=== PATIENT | female | born 1980 | race American Indian/Alaskan Native ===

== ENCOUNTER 2018-11-27 23:23 | Inpatient (IN) | payer MEDICARE ==
[2018-11-27] MEDS ORDERED: NACL 0.9% 1000 ML 1,000 ML IV ONE ×2 (23:53→23:54)
--- NOTE | 2018-11-27 23:57 | Emergency Department Report ---
ED General Adult HPI - General Chief complaint: Hyperglycemia Stated complaint: HIGH BLOOD GLUCOSE/BLACK FEET/HANDS Time Seen by Provider: 11/27/18 23:35 Source: patient (patient delirious and is a poor historian), family (history obtained from fiance), EMS (ems notes not available at time of chart dictation), RN notes reviewed, old records reviewed Mode of arrival: Stretcher Limitations: Physical Limitation - History of Present Illness Initial comments: This is a 38-year-old female. This patient is not known to this provider previously. 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 We do not know what medications she takes currently. She is accompanied by a gentleman who states that he is the patient's fiance, however, he is a very poor historian. The patient is brought to the hospital by EMS for weakness, hyperglycemia, and skin discoloration. The patient is lethargic but arousable, and cannot tell me how long symptoms have been going on for. She is not able to tell me if she has any pain. Apparently, the patient's fianc has some concern about bilateral plantar skin discoloration. He states that this started today. He is not able to tell me the patient's exact last known well time. He does not know the patient's medications. He does not the patient's primary care doctor. He also states the patient has been throwing up continuously for the past 2-3 days. No additional history is available at this time. The fianc does not know if the patient started any new or different medicines. The patient follows some commands, but is not able to elaborate on the details of her history of present illness. -: days(s) Radiation: other Quality: other Improves with: other Worsens with: other Associated Symptoms: other - Related Data Home Medications Medication Instructions Recorded Confirmed Last Taken Aspirin [Aspirin BABY CHEW TAB] 81 mg PO QDAY 11/28/18 11/29/18 11/26/18 Fluticasone [Flonase] 1 spray NS BID 11/28/18 11/28/18 Unknown Furosemide [Lasix TAB] 40 mg PO BID 11/28/18 11/28/18 Unknown Ibuprofen [Motrin] 600 mg PO Q6H PRN 11/28/18 11/28/18 Unknown Montelukast [Singulair] 10 mg PO QPM 11/28/18 11/28/18 Unknown Mycophenolate [Cellcept] 500 mg PO BID 11/28/18 11/28/18 Unknown Mycophenolate [Cellcept] 500 mg PO BID PRN MDD 2 TABS 11/28/18 11/28/18 Unknown Pantoprazole [Protonix] 40 mg PO QDAY 11/28/18 11/28/18 Unknown Sacubitril/Valsartan [Entresto 1 each PO BID 11/28/18 11/28/18 Unknown 49-51 mg] predniSONE [Deltasone] 50 mg PO QDAY 11/28/18 11/28/18 Unknown raNITIdine HCl [Zantac] 150 mg PO BID 11/28/18 11/28/18 Unknown Amitriptyline [Elavil] 25 mg PO HS 11/29/18 11/29/18 11/26/18 Aspirin [Adult Aspirin] 81 mg PO ONCE 11/29/18 11/29/18 11/26/18 Entresto 49-51 mg 49 mg PO BID 11/29/18 11/29/18 11/26/18 HYDROcodone/APAP 5-325 5 mg PO Q6HR PRN 11/29/18 11/29/18 Unknown Allergies Allergy/AdvReac Type Severity Reaction Status Date / Time lisinopril AdvReac Severe SORE Verified 12/17/13 19:00 THROAT;PERSISTENT COUGH ED Review of Systems ROS: Stated complaint: HIGH BLOOD GLUCOSE/BLACK FEET/HANDS Other details as noted in HPI Comment: Unobtainable due to pts medical conditions Constitutional: malaise, weakness Gastrointestinal: nausea, vomiting Skin: lesions Neurological: weakness, confusion ED Past Medical Hx - Past Medical History Previous Medical History?: Yes Hx Hypertension: Yes Hx Congestive Heart Failure: No Hx Diabetes: No Hx GERD: Yes Hx Arthritis: Yes Hx Asthma: No Hx COPD: No Hx HIV: No Additional medical history: cardiomyopathy - Surgical History Past Surgical History?: Yes Hx Pacemaker: Yes (05/2013) Hx Internal Defibrillator: Yes Hx Cholecystectomy: Yes - Social History Smoking Status: Never Smoker Substance Use Type: None - Medications Home Medications: Home Medications Medication Instructions Recorded Confirmed Last Taken Type Aspirin [Aspirin BABY CHEW TAB] 81 mg PO QDAY 11/28/18 11/29/18 11/26/18 History Fluticasone [Flonase] 1 spray NS BID 11/28/18 11/28/18 Unknown History Furosemide [Lasix TAB] 40 mg PO BID 11/28/18 11/28/18 Unknown History Ibuprofen [Motrin] 600 mg PO Q6H PRN 11/28/18 11/28/18 Unknown History Montelukast [Singulair] 10 mg PO QPM 11/28/18 11/28/18 Unknown History Mycophenolate [Cellcept] 500 mg PO BID 11/28/18 11/28/18 Unknown History Mycophenolate [Cellcept] 500 mg PO BID PRN MDD 2 TABS 11/28/18 11/28/18 Unknown History Pantoprazole [Protonix] 40 mg PO QDAY 11/28/18 11/28/18 Unknown History Sacubitril/Valsartan [Entresto 1 each PO BID 11/28/18 11/28/18 Unknown History 49-51 mg] predniSONE [Deltasone] 50 mg PO QDAY 11/28/18 11/28/18 Unknown History raNITIdine HCl [Zantac] 150 mg PO BID 11/28/18 11/28/18 Unknown History Amitriptyline [Elavil] 25 mg PO HS 11/29/18 11/29/18 11/26/18 History Aspirin [Adult Aspirin] 81 mg PO ONCE 11/29/18 11/29/18 11/26/18 History Entresto 49-51 mg 49 mg PO BID 11/29/18 11/29/18 11/26/18 History HYDROcodone/APAP 5-325 5 mg PO Q6HR PRN 11/29/18 11/29/18 Unknown History ED Physical Exam - General Limitations: Altered Mental Status General appearance: lethargic - Head Head exam: Present: atraumatic, normocephalic - Eye Eye exam: Present: normal appearance, PERRL, EOMI - ENT ENT exam: Present: mucous membranes dry, normal external ear exam - Neck Neck exam: Present: normal inspection, full ROM. Absent: tenderness, meningismus - Respiratory Respiratory exam: Present: respiratory distress, other (patient was found to have tachpnea, suggestive of kussmaul respirations). Absent: wheezes, rales, rhonchi, prolonged expiratory - Cardiovascular Cardiovascular Exam: Present: normal rhythm, tachycardia, normal heart sounds. Absent: systolic murmur, diastolic murmur, rubs, gallop - GI/Abdominal GI/Abdominal exam: Present: soft. Absent: distended, tenderness, guarding, rebound, rigid, pulsatile mass - Rectal Rectal exam: Present: normal inspection (chaperoned by santosh Brown) - External exam: Present: normal external exam Speculum exam: Present: other (no tampon or foreign body noted; chaperoned by SANTOSH Brown). Absent: erythema, vaginal discharge, cervical discharge, vaginal bleeding - Extremities Exam Extremities exam: Present: normal inspection, other (2+ pulses noted in the bilateral upper, lower extremities ( b/l femoral). Compartments soft. No long bony tenderness. The pelvis is stable.). Absent: tenderness, calf tenderness - Back Exam Back exam: Present: normal inspection. Absent: tenderness, CVA tenderness (R), CVA tenderness (L), paraspinal tenderness, vertebral tenderness - Neurological Exam Neurological exam: Present: altered, other (there is no facial droop. Patient moves 4 extremities in response to command. Sensation is intact to light touch. Patient able to answer yes no questions as to whether or not she has pain.) - Psychiatric Psychiatric exam: Present: flat affect - Skin Skin exam: Present: warm, other (there is no redness, pus or streaking. There are no blisters or vesicles. Patient appears to have callus formation on the bilateral plantar aspect of the feet. There is no necrosis. There is no crepitus. There is no streaking.) ED Course Vital Signs 11/27/18 11/28/18 11/28/18 23:40 00:00 02:00 Temperature 98.0 F 99.1 F Pulse Rate 104 H 98 H Respiratory 26 H 21 Rate Blood Pressure 149/93 Blood Pressure 149/93 135/110 [Left] O2 Sat by Pulse 93 94 Oximetry 11/28/18 11/28/18 11/28/18 03:00 04:00 05:00 Temperature Pulse Rate 141 H 109 H 143 H Respiratory 36 H 28 H 24 Rate Blood Pressure Blood Pressure 114/82 117/72 99/74 [Left] O2 Sat by Pulse 97 96 100 Oximetry 11/28/18 11/28/18 11/28/18 07:00 07:31 08:01 Temperature Pulse Rate 143 H 116 H 144 H Respiratory 24 35 H 36 H Rate Blood Pressure 128/84 120/98 95/58 Blood Pressure [Left] O2 Sat by Pulse 93 Oximetry 11/28/18 11/28/18 11/28/18 08:15 08:31 09:00 Temperature Pulse Rate 132 H 148 H 97 H Respiratory 26 H 25 H 22 Rate Blood Pressure 109/85 78/47 113/88 Blood Pressure [Left] O2 Sat by Pulse 75 L 76 L Oximetry 11/28/18 11/28/18 11/28/18 09:31 10:30 11:00 Temperature Pulse Rate 117 H 102 H 118 H Respiratory 31 H 30 H 29 H Rate Blood Pressure 103/63 116/89 99/79 Blood Pressure [Left] O2 Sat by Pulse 80 L Oximetry 11/28/18 11/28/18 11/28/18 11:30 12:00 12:30 Temperature Pulse Rate 146 H 97 H 157 H Respiratory 25 H 29 H 40 H Rate Blood Pressure 118/97 107/80 114/79 Blood Pressure [Left] O2 Sat by Pulse Oximetry 11/28/18 11/28/18 11/28/18 13:01 13:15 13:31 Temperature Pulse Rate 174 H 120 H 170 H Respiratory 22 29 H 45 H Rate Blood Pressure 108/86 111/83 Blood Pressure 111/83 [Left] O2 Sat by Pulse 94 Oximetry 11/28/18 11/28/18 11/28/18 13:40 13:45 14:00 Temperature Pulse Rate 158 H 126 H 179 H Respiratory 31 H 40 H 30 H Rate Blood Pressure Blood Pressure 100/84 113/84 106/75 [Left] O2 Sat by Pulse 92 94 Oximetry 11/28/18 11/28/18 11/28/18 14:01 14:30 14:31 Temperature Pulse Rate 179 H 119 H 156 H Respiratory 40 H 32 H 36 H Rate Blood Pressure 106/75 114/76 Blood Pressure 111/77 [Left] O2 Sat by Pulse 98 Oximetry 11/28/18 11/28/18 11/28/18 14:45 15:00 15:01 Temperature Pulse Rate 153 H 140 H 140 H Respiratory 23 27 H 27 H Rate Blood Pressure 112/90 Blood Pressure 124/73 112/90 [Left] O2 Sat by Pulse 95 Oximetry 11/28/18 11/28/18 11/28/18 15:31 16:00 16:15 Temperature Pulse Rate 149 H 158 H 139 H Respiratory 39 H 30 H Rate Blood Pressure 128/82 127/97 Blood Pressure 124/84 [Left] O2 Sat by Pulse Oximetry 11/28/18 11/28/18 11/28/18 16:31 16:45 17:01 Temperature Pulse Rate 142 H 151 H 140 H Respiratory 30 H 24 35 H Rate Blood Pressure 127/97 74/58 Blood Pressure 179/129 [Left] O2 Sat by Pulse Oximetry 11/28/18 11/28/18 11/28/18 17:15 17:30 17:31 Temperature Pulse Rate 148 H 156 H 133 H Respiratory 34 H 34 H Rate Blood Pressure 118/87 Blood Pressure 144/104 118/87 [Left] O2 Sat by Pulse Oximetry 11/28/18 11/28/18 11/29/18 18:48 22:01 00:43 Temperature Pulse Rate 128 H 137 H Respiratory 34 H 49 H Rate Blood Pressure Blood Pressure 168/99 [Left] O2 Sat by Pulse 100 100 Oximetry 11/29/18 11/29/18 11/29/18 02:29 02:30 02:36 Temperature Pulse Rate 93 H 99 H 120 H Respiratory 33 H 24 22 Rate Blood Pressure 128/84 128/84 139/106 Blood Pressure [Left] O2 Sat by Pulse 97 Oximetry 11/29/18 11/29/18 11/29/18 02:40 02:45 02:51 Temperature Pulse Rate 120 H 105 H 99 H Respiratory 42 H 25 H 57 H Rate Blood Pressure 139/106 Blood Pressure [Left] O2 Sat by Pulse 86 Oximetry 11/29/18 11/29/18 11/29/18 02:55 03:01 03:05 Temperature Pulse Rate 91 H 110 H 110 H Respiratory 31 H 53 H 20 Rate Blood Pressure 144/89 144/89 Blood Pressure [Left] O2 Sat by Pulse 85 Oximetry 11/29/18 11/29/18 11/29/18 03:11 03:15 03:21 Temperature Pulse Rate 112 H 106 H 124 H Respiratory 24 22 30 H Rate Blood Pressure 139/106 139/106 96/70 Blood Pressure [Left] O2 Sat by Pulse 96 98 Oximetry 11/29/18 11/29/18 11/29/18 03:25 03:31 03:35 Temperature Pulse Rate 108 H 92 H 118 H Respiratory 20 35 H 23 Rate Blood Pressure 96/70 96/70 110/62 Blood Pressure [Left] O2 Sat by Pulse 97 Oximetry 11/29/18 11/29/18 11/29/18 03:41 03:45 03:51 Temperature Pulse Rate 96 H 116 H 98 H Respiratory 21 26 H 26 H Rate Blood Pressure 110/62 110/62 126/89 Blood Pressure [Left] O2 Sat by Pulse 97 Oximetry 11/29/18 11/29/18 11/29/18 03:55 04:01 04:05 Temperature Pulse Rate 89 111 H 97 H Respiratory 40 H 19 61 H Rate Blood Pressure 126/89 113/86 113/86 Blood Pressure [Left] O2 Sat by Pulse 99 99 Oximetry 11/29/18 11/29/18 11/29/18 04:11 04:21 04:30 Temperature Pulse Rate 91 H 103 H 117 H Respiratory 15 35 H 49 H Rate Blood Pressure 113/86 112/68 106/76 Blood Pressure [Left] O2 Sat by Pulse Oximetry 11/29/18 11/29/18 11/29/18 04:41 04:51 05:01 Temperature Pulse Rate 93 H 91 H 95 H Respiratory 26 H 49 H 26 H Rate Blood Pressure 106/76 69/27 139/96 Blood Pressure [Left] O2 Sat by Pulse 99 99 Oximetry 11/29/18 11/29/18 11/29/18 05:11 05:21 05:30 Temperature Pulse Rate 91 H 90 87 Respiratory 43 H 44 H 12 Rate Blood Pressure 139/96 133/61 126/66 Blood Pressure [Left] O2 Sat by Pulse 100 100 95 Oximetry 11/29/18 11/29/18 11/29/18 05:41 05:51 06:01 Temperature Pulse Rate 90 90 94 H Respiratory 14 32 H 28 H Rate Blood Pressure 126/66 126/66 126/66 Blood Pressure [Left] O2 Sat by Pulse 98 100 Oximetry 11/29/18 11/29/18 11/29/18 06:11 06:21 06:31 Temperature Pulse Rate 92 H 90 87 Respiratory 17 49 H 61 H Rate Blood Pressure 126/66 126/66 126/66 Blood Pressure [Left] O2 Sat by Pulse 100 98 Oximetry 11/29/18 11/29/18 11/29/18 06:41 06:51 07:01 Temperature Pulse Rate 98 H 91 H 89 Respiratory 26 H 19 29 H Rate Blood Pressure 126/66 126/66 124/73 Blood Pressure [Left] O2 Sat by Pulse 100 Oximetry 11/29/18 11/29/18 11/29/18 07:11 07:21 07:31 Temperature Pulse Rate 87 85 88 Respiratory 54 H 24 32 H Rate Blood Pressure 124/73 145/55 151/51 Blood Pressure [Left] O2 Sat by Pulse 98 100 100 Oximetry 11/29/18 11/29/18 11/29/18 07:41 07:51 08:14 Temperature 97.6 F Pulse Rate 87 87 Respiratory 34 H 39 H Rate Blood Pressure 151/51 104/65 Blood Pressure 151/51 [Left] O2 Sat by Pulse 100 100 100 Oximetry - Reevaluation(s) Reevaluation #1: 11/28/18 00:28 Differential diagnosis, including not limited to: Hyperglycemia, diabetic ketoacidosis, hyperosmolar,, dehydration, pneumonia, intracranial injury, intra- abdominal infection, urinary tract infection, toxic encephalopathy Assessment and plan: 38-year-old female with lethargy hyperglycemia, tachycardia, likely metabolic encephalopathy, likely secondary to diabetic ketoacidosis, or hyperosmolar state. She is tachycardic and tachypneic. Rectal temperature is pending at this time. Basic laboratory studies, CT scan of the brain, CT scan of the abdomen and pelvis, IV fluids have been ordered. Her skin exam is not consistent with acute infection, compartment syndrome, or necrosis. Her plantar feet appear to be consistent with callus formation. We will reassess once her initial data points have resulted. Plan to admit. Requested nursing team to reconcile patient's medications. Reevaluation #2: 11/28/18 02:36 Laboratory studies demonstrate leukocytosis and hemoconcentration, hyperglycemia with glucose greater than 1000, renal insufficiency, potassium of 5.9, and nonspecific troponin leak. Appreciate the patient meets systemic inflammatory response syndrome criteria, but at this point in time, favor metabolic crisis, such as hyperglycemic coma. IV fluids ordered, insulin drip ordered. Do not suspect bacteremia at this time. Lactic acidosis likely secondary to dehydration, and metabolic crisis. In addition, patient's abnormal vital signs and leukocytosis are likely secondary to the same. Nevertheless, we will cover with ceftriaxone. IV fluids and IV insulin should decrease hyperkalemia. Elevated troponin nonspecific, this is likely a type II troponin leak, secondary to the aforementioned. Noncontrast CT scan of the brain is negative for acute disease. Case presented to the Hospital physician, Dr. Constantin Diaz, who accepts the patient to the intensive care unit. Reevaluation #3: 11/28/18 03:11 X-ray of the chest shows atelectatic changes. Noncontrast CT scan of the abdomen and pelvis shows no acute findings, atelectatic changes. [facility] is updated. - EJ/Peripheral Line Neck R Time Out Performed: Yes Indications: nurses unable to establis Skin Cleansed in Sterile Fashion: Yes Size: 22 Dressing Placed: Tegaderm Patient Tolerated Procedure: well ED Medical Decision Making - Lab Data Result diagrams: 11/29/18 05:55 11/29/18 16:46 Vital Signs 11/27/18 23:40 Pulse Rate 104 H Respiratory 26 H Rate Blood Pressure 149/93 Blood Pressure 149/93 [Left] O2 Sat by Pulse 93 Oximetry Lab Results 11/27/18 Range/Units 23:40 POC Glucose > 500 H (70-105) Vital Signs 11/27/18 23:40 Pulse Rate 104 H Respiratory 26 H Rate Blood Pressure 149/93 Blood Pressure 149/93 [Left] O2 Sat by Pulse 93 Oximetry Lab Results 11/27/18 11/28/18 11/28/18 Range/Units 23:40 00:37 00:37 WBC (4.5-11.0) K/mm3 RBC (3.65-5.03) M/mm3 Hgb (10.1-14.3) gm/dl Hct (30.3-42.9) % MCV (79-97) fl MCH (28-32) pg MCHC (30-34) % RDW (13.2-15.2) % Plt Count (140-440) K/mm3 Lymph % (Auto) (13.4-35.0) % [place] % (Auto) (0.0-7.3) % Eos % (Auto) (0.0-4.3) % Baso % (Auto) (0.0-1.8) % Lymph # (1.2-5.4) K/mm3 [place] # (0.0-0.8) K/mm3 Eos # (0.0-0.4) K/mm3 Baso # (0.0-0.1) K/mm3 Seg Neutrophils % (40.0-70.0) % Seg Neutrophils # (1.8-7.7) K/mm3 PT (12.2-14.9) Sec. INR (0.87-1.13) APTT (24.2-36.6) Sec. ABG pH (7.350-7.450) pH Units ABG pCO2 mm Hg ABG pO2 (80.0-90.0) mm Hg ABG HCO3 (20.0-26.0) mmol/L ABG O2 Saturation (95.0-99.0) % ABG O2 Content (0.0-44) ABG Base Excess (-2.0-3.0) mmol/L ABG Hemoglobin (12.0-16.0) gm/dl ABG Carboxyhemoglobin (0.0-5.0) % ABG Methemoglobin (0.0-1.5) % VBG pH (7.320-7.420) Oxyhemoglobin (95.0-99.0) % FiO2 % Sodium (137-145) mmol/L Potassium (3.6-5.0) mmol/L Chloride (98-107) mmol/L Carbon Dioxide (22-30) mmol/L Anion Gap mmol/L BUN (7-17) mg/dL Creatinine (0.7-1.2) mg/dL Estimated GFR ml/min BUN/Creatinine Ratio % Glucose (65-100) mg/dL POC Glucose > 500 H (70-105) Lactic Acid (0.7-2.0) mmol/L Calcium (8.4-10.2) mg/dL Magnesium (1.7-2.3) mg/dL Total Bilirubin (0.1-1.2) mg/dL Direct Bilirubin (0-0.2) mg/dL Indirect Bilirubin mg/dL AST (5-40) units/L ALT (7-56) units/L Alkaline Phosphatase (35-129) units/L Ammonia (25-60) umol/L Total Creatine Kinase (30-135) units/L Troponin T (0.00-0.029) ng/mL Total Protein (6.3-8.2) g/dL Albumin (3.9-5) g/dL Albumin/Globulin Ratio % Triglycerides (2-149) mg/dL Cholesterol (50-199) mg/dL LDL Cholesterol Direct (50-130) mg/dL HDL Cholesterol (40-59) mg/dL Cholesterol/HDL Ratio % HCG, Quant (0-4) mIU/mL Urine Color Straw (Yellow) Urine Turbidity Clear (Clear) Urine pH 7.0 (5.0-7.0) Ur Specific [place] 1.023 (1.003-1.030) Urine Protein 30 mg/dl (Negative) mg/dL Urine Glucose (UA) >=500 (Negative) mg/dL Urine Ketones Tr (Negative) mg/dL Urine Blood Sm (Negative) Urine Nitrite Neg (Negative) Urine Bilirubin Neg (Negative) Urine Urobilinogen < 2.0 (<2.0) mg/dL Ur Leukocyte Esterase Neg (Negative) Urine WBC (Auto) < 1.0 (0.0-6.0) /HPF Urine RBC (Auto) 1.0 (0.0-6.0) /HPF Urine HCG, Qual (Negative) Salicylates (2.8-20.0) mg/dL Urine Opiates Screen Presumptive negative Urine Methadone Screen Presumptive negative Acetaminophen (10.0-30.0) ug/mL Ur Barbiturates Screen Presumptive negative Ur Phencyclidine Scrn Presumptive negative Ur Amphetamines Screen Presumptive negative U Benzodiazepines Scrn Presumptive negative Urine Cocaine Screen Presumptive negative U Marijuana (THC) Screen Presumptive negative Drugs of Abuse Note Disclamer Plasma/Serum Alcohol (0-0.07) % Blood Type 11/28/18 11/28/18 11/28/18 Range/Units 01:01 01:01 01:01 WBC 15.1 H (4.5-11.0) K/mm3 RBC 6.19 H (3.65-5.03) M/mm3 Hgb 17.4 H (10.1-14.3) gm/dl Hct 54.6 H (30.3-42.9) % MCV 88 (79-97) fl MCH 28 (28-32) pg MCHC 32 (30-34) % RDW 19.6 H (13.2-15.2) % Plt Count 308 (140-440) K/mm3 Lymph % (Auto) 6.3 L (13.4-35.0) % [place] % (Auto) 6.1 (0.0-7.3) % Eos % (Auto) 0.0 (0.0-4.3) % Baso % (Auto) 0.4 (0.0-1.8) % Lymph # 0.9 L (1.2-5.4) K/mm3 [place] # 0.9 H (0.0-0.8) K/mm3 Eos # 0.0 (0.0-0.4) K/mm3 Baso # 0.1 (0.0-0.1) K/mm3 Seg Neutrophils % 87.2 H (40.0-70.0) % Seg Neutrophils # 13.2 H (1.8-7.7) K/mm3 PT 15.6 H (12.2-14.9) Sec. INR 1.27 H (0.87-1.13) APTT 25.1 (24.2-36.6) Sec. ABG pH (7.350-7.450) pH Units ABG pCO2 mm Hg ABG pO2 (80.0-90.0) mm Hg ABG HCO3 (20.0-26.0) mmol/L ABG O2 Saturation (95.0-99.0) % ABG O2 Content (0.0-44) ABG Base Excess (-2.0-3.0) mmol/L ABG Hemoglobin (12.0-16.0) gm/dl ABG Carboxyhemoglobin (0.0-5.0) % ABG Methemoglobin (0.0-1.5) % VBG pH (7.320-7.420) Oxyhemoglobin (95.0-99.0) % FiO2 % Sodium 141 (137-145) mmol/L Potassium 5.9 H (3.6-5.0) mmol/L Chloride 92.9 L (98-107) mmol/L Carbon Dioxide 29 (22-30) mmol/L Anion Gap 25 mmol/L BUN 20 H (7-17) mg/dL Creatinine 1.3 H (0.7-1.2) mg/dL Estimated GFR 55 ml/min BUN/Creatinine Ratio 15 % Glucose 1088 H* (65-100) mg/dL POC Glucose (70-105) Lactic Acid (0.7-2.0) mmol/L Calcium 9.8 (8.4-10.2) mg/dL Magnesium (1.7-2.3) mg/dL Total Bilirubin 2.40 H (0.1-1.2) mg/dL Direct Bilirubin 1.3 H (0-0.2) mg/dL Indirect Bilirubin 1.1 mg/dL AST 13 (5-40) units/L ALT 31 (7-56) units/L Alkaline Phosphatase 225 H (35-129) units/L Ammonia (25-60) umol/L Total Creatine Kinase (30-135) units/L Troponin T 0.030 H (0.00-0.029) ng/mL Total Protein 7.7 (6.3-8.2) g/dL Albumin 3.8 L (3.9-5) g/dL Albumin/Globulin Ratio 1.0 % Triglycerides 356 H (2-149) mg/dL Cholesterol 200 H (50-199) mg/dL LDL Cholesterol Direct 125 (50-130) mg/dL HDL Cholesterol 39 L (40-59) mg/dL Cholesterol/HDL Ratio 5.12 % HCG, Quant (0-4) mIU/mL Urine Color (Yellow) Urine Turbidity (Clear) Urine pH (5.0-7.0) Ur Specific [place] (1.003-1.030) Urine Protein (Negative) mg/dL Urine Glucose (UA) (Negative) mg/dL Urine Ketones (Negative) mg/dL Urine Blood (Negative) Urine Nitrite (Negative) Urine Bilirubin (Negative) Urine Urobilinogen (<2.0) mg/dL Ur Leukocyte Esterase (Negative) Urine WBC (Auto) (0.0-6.0) /HPF Urine RBC (Auto) (0.0-6.0) /HPF Urine HCG, Qual (Negative) Salicylates (2.8-20.0) mg/dL Urine Opiates Screen Urine Methadone Screen Acetaminophen (10.0-30.0) ug/mL Ur Barbiturates Screen Ur Phencyclidine Scrn Ur Amphetamines Screen U Benzodiazepines Scrn Urine Cocaine Screen U Marijuana (THC) Screen Drugs of Abuse Note Plasma/Serum Alcohol (0-0.07) % Blood Type 11/28/18 11/28/18 11/28/18 Range/Units 01:01 01:01 01:01 WBC (4.5-11.0) K/mm3 RBC (3.65-5.03) M/mm3 Hgb (10.1-14.3) gm/dl Hct (30.3-42.9) % MCV (79-97) fl MCH (28-32) pg MCHC (30-34) % RDW (13.2-15.2) % Plt Count (140-440) K/mm3 Lymph % (Auto) (13.4-35.0) % [place] % (Auto) (0.0-7.3) % Eos % (Auto) (0.0-4.3) % Baso % (Auto) (0.0-1.8) % Lymph # (1.2-5.4) K/mm3 [place] # (0.0-0.8) K/mm3 Eos # (0.0-0.4) K/mm3 Baso # (0.0-0.1) K/mm3 Seg Neutrophils % (40.0-70.0) % Seg Neutrophils # (1.8-7.7) K/mm3 PT (12.2-14.9) Sec. INR (0.87-1.13) APTT (24.2-36.6) Sec. ABG pH (7.350-7.450) pH Units ABG pCO2 mm Hg ABG pO2 (80.0-90.0) mm Hg ABG HCO3 (20.0-26.0) mmol/L ABG O2 Saturation (95.0-99.0) % ABG O2 Content (0.0-44) ABG Base Excess (-2.0-3.0) mmol/L ABG Hemoglobin (12.0-16.0) gm/dl ABG Carboxyhemoglobin (0.0-5.0) % ABG Methemoglobin (0.0-1.5) % VBG pH (7.320-7.420) Oxyhemoglobin (95.0-99.0) % FiO2 % Sodium (137-145) mmol/L Potassium (3.6-5.0) mmol/L Chloride (98-107) mmol/L Carbon Dioxide (22-30) mmol/L Anion Gap mmol/L BUN (7-17) mg/dL Creatinine (0.7-1.2) mg/dL Estimated GFR ml/min BUN/Creatinine Ratio % Glucose (65-100) mg/dL POC Glucose (70-105) Lactic Acid 3.50 H* (0.7-2.0) mmol/L Calcium (8.4-10.2) mg/dL Magnesium (1.7-2.3) mg/dL Total Bilirubin (0.1-1.2) mg/dL Direct Bilirubin (0-0.2) mg/dL Indirect Bilirubin mg/dL AST (5-40) units/L ALT (7-56) units/L Alkaline Phosphatase (35-129) units/L Ammonia 30.0 (25-60) umol/L Total Creatine Kinase (30-135) units/L Troponin T (0.00-0.029) ng/mL Total Protein (6.3-8.2) g/dL Albumin (3.9-5) g/dL Albumin/Globulin Ratio % Triglycerides (2-149) mg/dL Cholesterol (50-199) mg/dL LDL Cholesterol Direct (50-130) mg/dL HDL Cholesterol (40-59) mg/dL Cholesterol/HDL Ratio % HCG, Quant (0-4) mIU/mL Urine Color (Yellow) Urine Turbidity (Clear) Urine pH (5.0-7.0) Ur Specific [place] (1.003-1.030) Urine Protein (Negative) mg/dL Urine Glucose (UA) (Negative) mg/dL Urine Ketones (Negative) mg/dL Urine Blood (Negative) Urine Nitrite (Negative) Urine Bilirubin (Negative) Urine Urobilinogen (<2.0) mg/dL Ur Leukocyte Esterase (Negative) Urine WBC (Auto) (0.0-6.0) /HPF Urine RBC (Auto) (0.0-6.0) /HPF Urine HCG, Qual (Negative) Salicylates < 0.3 L (2.8-20.0) mg/dL Urine Opiates Screen Urine Methadone Screen Acetaminophen (10.0-30.0) ug/mL Ur Barbiturates Screen Ur Phencyclidine Scrn Ur Amphetamines Screen U Benzodiazepines Scrn Urine Cocaine Screen U Marijuana (THC) Screen Drugs of Abuse Note Plasma/Serum Alcohol (0-0.07) % Blood Type 08/18/19 08/18/19 08/18/19 Range/Units 01:01 01:01 01:01 WBC (4.5-11.0) K/mm3 RBC (3.65-5.03) M/mm3 Hgb (10.1-14.3) gm/dl Hct (30.3-42.9) % MCV (79-97) fl MCH (28-32) pg MCHC (30-34) % RDW (13.2-15.2) % Plt Count (140-440) K/mm3 Lymph % (Auto) (13.4-35.0) % [place] % (Auto) (0.0-7.3) % Eos % (Auto) (0.0-4.3) % Baso % (Auto) (0.0-1.8) % Lymph # (1.2-5.4) K/mm3 [place] # (0.0-0.8) K/mm3 Eos # (0.0-0.4) K/mm3 Baso # (0.0-0.1) K/mm3 Seg Neutrophils % (40.0-70.0) % Seg Neutrophils # (1.8-7.7) K/mm3 PT (12.2-14.9) Sec. INR (0.87-1.13) APTT (24.2-36.6) Sec. ABG pH 7.414 (7.350-7.450) pH Units ABG pCO2 48.8 mm Hg ABG pO2 65.7 L (80.0-90.0) mm Hg ABG HCO3 30.5 H (20.0-26.0) mmol/L ABG O2 Saturation 91.3 L (95.0-99.0) % ABG O2 Content 22.2 (0.0-44) ABG Base Excess 4.6 H (-2.0-3.0) mmol/L ABG Hemoglobin 18.0 H (12.0-16.0) gm/dl ABG Carboxyhemoglobin 3.1 (0.0-5.0) % ABG Methemoglobin 0.5 (0.0-1.5) % VBG pH 7.414 (7.320-7.420) Oxyhemoglobin 88.0 L (95.0-99.0) % FiO2 21 % Sodium (137-145) mmol/L Potassium (3.6-5.0) mmol/L Chloride (98-107) mmol/L Carbon Dioxide (22-30) mmol/L Anion Gap mmol/L BUN (7-17) mg/dL Creatinine (0.7-1.2) mg/dL Estimated GFR ml/min BUN/Creatinine Ratio % Glucose (65-100) mg/dL POC Glucose (70-105) Lactic Acid (0.7-2.0) mmol/L Calcium (8.4-10.2) mg/dL Magnesium (1.7-2.3) mg/dL Total Bilirubin (0.1-1.2) mg/dL Direct Bilirubin (0-0.2) mg/dL Indirect Bilirubin mg/dL AST (5-40) units/L ALT (7-56) units/L Alkaline Phosphatase (35-129) units/L Ammonia (25-60) umol/L Total Creatine Kinase (30-135) units/L Troponin T (0.00-0.029) ng/mL Total Protein (6.3-8.2) g/dL Albumin (3.9-5) g/dL Albumin/Globulin Ratio % Triglycerides (2-149) mg/dL Cholesterol (50-199) mg/dL LDL Cholesterol Direct (50-130) mg/dL HDL Cholesterol (40-59) mg/dL Cholesterol/HDL Ratio % HCG, Quant (0-4) mIU/mL Urine Color (Yellow) Urine Turbidity (Clear) Urine pH (5.0-7.0) Ur Specific [place] (1.003-1.030) Urine Protein (Negative) mg/dL Urine Glucose (UA) (Negative) mg/dL Urine Ketones (Negative) mg/dL Urine Blood (Negative) Urine Nitrite (Negative) Urine Bilirubin (Negative) Urine Urobilinogen (<2.0) mg/dL Ur Leukocyte Esterase (Negative) Urine WBC (Auto) (0.0-6.0) /HPF Urine RBC (Auto) (0.0-6.0) /HPF Urine HCG, Qual (Negative) Salicylates (2.8-20.0) mg/dL Urine Opiates Screen Urine Methadone Screen Acetaminophen < 5.0 L (10.0-30.0) ug/mL Ur Barbiturates Screen Ur Phencyclidine Scrn Ur Amphetamines Screen U Benzodiazepines Scrn Urine Cocaine Screen U Marijuana (THC) Screen Drugs of Abuse Note Plasma/Serum Alcohol < 0.01 (0-0.07) % Blood Type 11/28/18 11/28/18 11/28/18 Range/Units 01:01 01:01 01:01 WBC (4.5-11.0) K/mm3 RBC (3.65-5.03) M/mm3 Hgb (10.1-14.3) gm/dl Hct (30.3-42.9) % MCV (79-97) fl MCH (28-32) pg MCHC (30-34) % RDW (13.2-15.2) % Plt Count (140-440) K/mm3 Lymph % (Auto) (13.4-35.0) % [place] % (Auto) (0.0-7.3) % Eos % (Auto) (0.0-4.3) % Baso % (Auto) (0.0-1.8) % Lymph # (1.2-5.4) K/mm3 [place] # (0.0-0.8) K/mm3 Eos # (0.0-0.4) K/mm3 Baso # (0.0-0.1) K/mm3 Seg Neutrophils % (40.0-70.0) % Seg Neutrophils # (1.8-7.7) K/mm3 PT (12.2-14.9) Sec. INR (0.87-1.13) APTT (24.2-36.6) Sec. ABG pH (7.350-7.450) pH Units ABG pCO2 mm Hg ABG pO2 (80.0-90.0) mm Hg ABG HCO3 (20.0-26.0) mmol/L ABG O2 Saturation (95.0-99.0) % ABG O2 Content (0.0-44) ABG Base Excess (-2.0-3.0) mmol/L ABG Hemoglobin (12.0-16.0) gm/dl ABG Carboxyhemoglobin (0.0-5.0) % ABG Methemoglobin (0.0-1.5) % VBG pH (7.320-7.420) Oxyhemoglobin (95.0-99.0) % FiO2 % Sodium (137-145) mmol/L Potassium (3.6-5.0) mmol/L Chloride (98-107) mmol/L Carbon Dioxide (22-30) mmol/L Anion Gap mmol/L BUN (7-17) mg/dL Creatinine (0.7-1.2) mg/dL Estimated GFR ml/min BUN/Creatinine Ratio % Glucose (65-100) mg/dL POC Glucose (70-105) Lactic Acid (0.7-2.0) mmol/L Calcium (8.4-10.2) mg/dL Magnesium 3.70 H (1.7-2.3) mg/dL Total Bilirubin (0.1-1.2) mg/dL Direct Bilirubin (0-0.2) mg/dL Indirect Bilirubin mg/dL AST (5-40) units/L ALT (7-56) units/L Alkaline Phosphatase (35-129) units/L Ammonia (25-60) umol/L Total Creatine Kinase 228 H (30-135) units/L Troponin T (0.00-0.029) ng/mL Total Protein (6.3-8.2) g/dL Albumin (3.9-5) g/dL Albumin/Globulin Ratio % Triglycerides (2-149) mg/dL Cholesterol (50-199) mg/dL LDL Cholesterol Direct (50-130) mg/dL HDL Cholesterol (40-59) mg/dL Cholesterol/HDL Ratio % HCG, Quant < 2 (0-4) mIU/mL Urine Color (Yellow) Urine Turbidity (Clear) Urine pH (5.0-7.0) Ur Specific [place] (1.003-1.030) Urine Protein (Negative) mg/dL Urine Glucose (UA) (Negative) mg/dL Urine Ketones (Negative) mg/dL Urine Blood (Negative) Urine Nitrite (Negative) Urine Bilirubin (Negative) Urine Urobilinogen (<2.0) mg/dL Ur Leukocyte Esterase (Negative) Urine WBC (Auto) (0.0-6.0) /HPF Urine RBC (Auto) (0.0-6.0) /HPF Urine HCG, Qual (Negative) Salicylates (2.8-20.0) mg/dL Urine Opiates Screen Urine Methadone Screen Acetaminophen (10.0-30.0) ug/mL Ur Barbiturates Screen Ur Phencyclidine Scrn Ur Amphetamines Screen U Benzodiazepines Scrn Urine Cocaine Screen U Marijuana (THC) Screen Drugs of Abuse Note Plasma/Serum Alcohol (0-0.07) % Blood Type B POSITIVE 11/28/18 Range/Units Unknown WBC (4.5-11.0) K/mm3 RBC (3.65-5.03) M/mm3 Hgb (10.1-14.3) gm/dl Hct (30.3-42.9) % MCV (79-97) fl MCH (28-32) pg MCHC (30-34) % RDW (13.2-15.2) % Plt Count (140-440) K/mm3 Lymph % (Auto) (13.4-35.0) % [place] % (Auto) (0.0-7.3) % Eos % (Auto) (0.0-4.3) % Baso % (Auto) (0.0-1.8) % Lymph # (1.2-5.4) K/mm3 [place] # (0.0-0.8) K/mm3 Eos # (0.0-0.4) K/mm3 Baso # (0.0-0.1) K/mm3 Seg Neutrophils % (40.0-70.0) % Seg Neutrophils # (1.8-7.7) K/mm3 PT (12.2-14.9) Sec. INR (0.87-1.13) APTT (24.2-36.6) Sec. ABG pH (7.350-7.450) pH Units ABG pCO2 mm Hg ABG pO2 (80.0-90.0) mm Hg ABG HCO3 (20.0-26.0) mmol/L ABG O2 Saturation (95.0-99.0) % ABG O2 Content (0.0-44) ABG Base Excess (-2.0-3.0) mmol/L ABG Hemoglobin (12.0-16.0) gm/dl ABG Carboxyhemoglobin (0.0-5.0) % ABG Methemoglobin (0.0-1.5) % VBG pH (7.320-7.420) Oxyhemoglobin (95.0-99.0) % FiO2 % Sodium (137-145) mmol/L Potassium (3.6-5.0) mmol/L Chloride (98-107) mmol/L Carbon Dioxide (22-30) mmol/L Anion Gap mmol/L BUN (7-17) mg/dL Creatinine (0.7-1.2) mg/dL Estimated GFR ml/min BUN/Creatinine Ratio % Glucose (65-100) mg/dL POC Glucose (70-105) Lactic Acid (0.7-2.0) mmol/L Calcium (8.4-10.2) mg/dL Magnesium (1.7-2.3) mg/dL Total Bilirubin (0.1-1.2) mg/dL Direct Bilirubin (0-0.2) mg/dL Indirect Bilirubin mg/dL AST (5-40) units/L ALT (7-56) units/L Alkaline Phosphatase (35-129) units/L Ammonia (25-60) umol/L Total Creatine Kinase (30-135) units/L Troponin T (0.00-0.029) ng/mL Total Protein (6.3-8.2) g/dL Albumin (3.9-5) g/dL Albumin/Globulin Ratio % Triglycerides (2-149) mg/dL Cholesterol (50-199) mg/dL LDL Cholesterol Direct (50-130) mg/dL HDL Cholesterol (40-59) mg/dL Cholesterol/HDL Ratio % HCG, Quant (0-4) mIU/mL Urine Color (Yellow) Urine Turbidity (Clear) Urine pH (5.0-7.0) Ur Specific [place] (1.003-1.030) Urine Protein (Negative) mg/dL Urine Glucose (UA) (Negative) mg/dL Urine Ketones (Negative) mg/dL Urine Blood (Negative) Urine Nitrite (Negative) Urine Bilirubin (Negative) Urine Urobilinogen (<2.0) mg/dL Ur Leukocyte Esterase (Negative) Urine WBC (Auto) (0.0-6.0) /HPF Urine RBC (Auto) (0.0-6.0) /HPF Urine HCG, Qual Negative (Negative) Salicylates (2.8-20.0) mg/dL Urine Opiates Screen Urine Methadone Screen Acetaminophen (10.0-30.0) ug/mL Ur Barbiturates Screen Ur Phencyclidine Scrn Ur Amphetamines Screen U Benzodiazepines Scrn Urine Cocaine Screen U Marijuana (THC) Screen Drugs of Abuse Note Plasma/Serum Alcohol (0-0.07) % Blood Type - EKG Data 11/28/18 00:31 This is a sinus tachycardia, left axis deviation, left anterior fascicular block, atrial enlargement, premature ventricular contractions, no endorsement of chest pain, the EKG is abnormal, the EKG is not consistent with ST elevation myocardial infarction, nonspecific changes noted when compared to prior EKG from December 2013 - Radiology Data Radiology results: pending, report reviewed, image reviewed Critical Care Time: Yes Critical care time in (mins) excluding proc time.: 60 Critical care attestation.: If time is entered above; I have spent that time in minutes in the direct care of this critically ill patient, excluding procedure time. ED Disposition Clinical Impression: Hyperosmolar coma, Acute renal insufficiency Disposition: OP ADMIT IP TO THIS HOSP Is pt being admited?: Yes Condition: Critical
[2018-11-28 00:57] LABS: Bilirubin,Urine NEG (Negative); Blood,Urine SM (Negative); Color,Urine Straw (Yellow); Urobilinogen,Urine < 2.0 mg/dL (<2.0); WBC,Urine < 1.0 /HPF (0.0-6.0)
[2018-11-28 01:06] LABS: Amphetamine Screen,Urine PRESUMPTIVE NEGATIVE; Benzodiazepines Screen,Urine PRESUMPTIVE NEGATIVE; Cannabinoid Screen,Urine PRESUMPTIVE NEGATIVE; Cocaine Screen,Urine PRESUMPTIVE NEGATIVE; Methadone Screen,Urine PRESUMPTIVE NEGATIVE; Opiate Screen,Urine PRESUMPTIVE NEGATIVE
[2018-11-28 01:15] LABS: HCG Qualitative,Urine Negative (Negative)
[2018-11-28 01:19] LABS: Basophils # (Auto) 0.1 K/mm3 (0.0-0.1); Basophils % (Auto) 0.4 % (0.0-1.8); Hematocrit 54.6 % (30.3-42.9); Hemoglobin 17.4 gm/dl (10.1-14.3); Lymphocytes # (Auto) 0.9 K/mm3 (1.2-5.4); Lymphocytes % (Auto) 6.3 % (13.4-35.0); Mean Corpuscular HGB Conc 32 % (30-34); Mean Corpuscular Volume 88 fl (79-97); Monocytes # (Auto) 0.9 K/mm3 (0.0-0.8); Monocytes % (Auto) 6.1 % (0.0-7.3); Platelet Count 308 K/mm3 (140-440); Red Blood Count 6.19 M/mm3 (3.65-5.03); Red Cell Distribution Width 19.6 % (13.2-15.2)
[2018-11-28 01:20] LABS: ABG Base Excess 4.6 mmol/L (-2.0-3.0); ABG HCO3 30.5 mmol/L (20.0-26.0); ABG Methemoglobin 0.5 % (0.0-1.5); ABG Oxygen Saturation 91.3 % (95.0-99.0); ABG PCO2 48.8 mm Hg; ABG PH 7.414 pH Units (7.350-7.450); ABG PO2 65.7 mm Hg (80.0-90.0); VEN PH 7.414 (7.320-7.420)
[2018-11-28 01:47] LABS: INR 1.27 (0.87-1.13); Partial Thromboplastin Time 25.1 Sec. (24.2-36.6)
[2018-11-28 02:06] LABS: Albumin 3.8 g/dL (3.9-5); Bilirubin,Direct 1.3 mg/dL (0-0.2); Calcium 9.8 mg/dL (8.4-10.2)
[2018-11-28 02:17] LABS: Chol/HDL Ratio 5.12 %
[2018-11-28] MEDS ORDERED: D50W (25GM) Syringe IV PRN (02:19)
[2018-11-28] MEDS ORDERED: HumuLIN R IV ONE (02:19)
[2018-11-28] MEDS ORDERED: NACL 0.9% 1000 ML 2,000 ML IV ONE (02:19)
--- NOTE | 2018-11-28 02:32 | Cat Scan Report ---
CT head/brain wo con INDICATION / CLINICAL INFORMATION: Altered Mental Status. TECHNIQUE: All CT scans at this location are performed using CT dose reduction for ALARA by means of automated e xposure control. COMPARISON: None available. FINDINGS: The ventricular system is normal in size and configuration. No focal lesion or mass effect is seen. T here is no evidence of intracranial hemorrhage or major vessel occlusion. The calvarium is intact. The visualized paranasal sinuses and mastoid air cells are clear. IMPRESSION: No acute abnormality. Signer Name: Roldan Lim MD Signed: 11/28/2018 2:27 AM Workstation Name: [id number]
[2018-11-28] MEDS ORDERED: ROCEPHIN/NS 1 GM/50 ML 1 GM/50 ML BAG IV ONE (02:33)
--- NOTE | 2018-11-28 02:40 | Cat Scan Report ---
CT abdomen pelvis wo con INDICATION / CLINICAL INFORMATION: NAUSEA, VOMITING, WEAKNESS, AMS. TECHNIQUE: All CT scans at this location are performed using CT dose reduction for ALARA by means of automated e xposure control. COMPARISON: None available. FINDINGS: ABDOMEN: The gallbladder is surgically absent. The liver, spleen, bile ducts, pancreas, adrenal gland s, kidneys and bowel demonstrate no significant abnormality. No adenopathy is seen. There is cylindrical bronchiectasis throughout both lungs, most prominent in the lower lung zones. Th ere is mosaic lung attenuation likely related to small airway disease. There is no evidence of consol idation, mass or effusion. The heart is enlarged. PELVIS: The distal ureters and urinary bladder are normal. The uterus and adnexal regions are unremar kable. A normal appendix is present and there is no evidence of diverticulitis. No abnormal mass or f luid collection is seen. I do not identify a hernia. There is internal fixation of the right SI joint . There are degenerative changes involving the right SI joint. No acute osseous abnormality is seen. IMPRESSION: 1. No acute intra-abdominal disease is identified. 2. Cardiomegaly, generalized bronchiectasis and mosaic lung attenuation/evidence of small airway dise ase. Signer Name: Roldan Lim MD Signed: 11/28/2018 2:36 AM Workstation Name: [id number]
--- NOTE | 2018-11-28 02:45 | XRay Report ---
CHEST 1 VIEW 2:12 AM INDICATION / CLINICAL INFORMATION: RESP DISTRESS, LOW 02. COMPARISON: 12/17/2013. FINDINGS: SUPPORT DEVICES: There is a dual chamber left subclavian ICD with the tips of the pacing leads overly ing the right atrial appendage and right ventricle. HEART / MEDIASTINUM: There is [id number] cardiomegaly. LUNGS / PLEURA: There is mild bibasilar subsegmental atelectasis without evidence of edema. No pneumo thorax. ADDITIONAL FINDINGS: No significant additional findings. IMPRESSION: Mild bibasilar atelectasis. Signer Name: Roldan Lim MD Signed: 11/28/2018 2:40 AM Workstation Name: [id number]
[2018-11-28] MEDS ORDERED: HumuLIN R 100 UNITS in NACL 0.9% 99 ML IV SCH (03:00)
[2018-11-28] MEDS ORDERED: D5W/0.45% NACL/KCL 20 MEQ 20 MEQ/1,000 ML BAG IV SCH ×2 (03:00→15:00)
[2018-11-28] MEDS ORDERED: SODIUM CHLORIDE FLUSH SYRINGE 10 ML IV PRN ×2 (03:00→03:02)
[2018-11-28] MEDS ORDERED: ZOFRAN IV PRN (03:02)
--- NOTE | 2018-11-28 03:18 | History and Physical Report ---
History of Present Illness Date of examination: 11/28/18 Chief complaint: Generalized weakness History of present illness: Patient is a 38-year-old -[place] female with history of hypertension and non-ischemic cardiomyopathy who was brought to the ED via EMS on account of generalized weakness. Of note, history could not be obtained from the patient because she was confused. So, history was obtained from her fiance who was at the bedside. He reported that for the past 2 days, the patient has been having nausea with vomiting times multiple episodes, generalized weakness and poor oral intake. Today, he noticed some bluish discoloration of her feet which prompted him to call 911. No reported history of chest pain, shortness of breath, abdominal pain or diarrhea. No known prior history of diabetes. Past History Past Medical History: arthritis, GERD, hypertension, other (non-ischemic cardiomyopathy status post AICD placement) Past Surgical History: Other (cholecystectomy, AICD placement, back surgery) Social history: no significant social history (no reported history of tobacco, alcohol or illicit drug use) Family history: other (could not be obtained due to altered mental status) Medications and Allergies Allergies Allergy/AdvReac Type Severity Reaction Status Date / Time lisinopril AdvReac Severe SORE Verified 12/17/13 19:00 THROAT;PERSISTENT COUGH Home Medications Medication Instructions Recorded Confirmed Last Taken Type Aspirin 325 mg PO QDAY 02/08/13 12/17/13 12/15/13 History Famotidine 40 mg PO DAILY 06/14/13 12/17/13 12/17/13 11:00 History Multivitamin [Multi-Vitamin Daily] 1 tab PO DAILY 06/14/13 12/17/13 12/17/13 11:00 History Ferrous Sulfate [Feosol 325 MG tab] 325 mg PO QDAY #30 tablet 07/07/13 12/17/13 12/17/13 11:00 Rx Ferrous Sulfate [Feosol 325 MG tab] 325 mg PO BID #30 tablet 12/20/13 Unknown Rx Losartan [Cozaar] 25 mg PO QDAY #30 tablet 12/20/13 Unknown Rx Metoprolol Xl [Metoprolol 50 mg PO QDAY #30 tablet 12/20/13 Unknown Rx SUCCINATE ER TAB] levoFLOXacin [Levaquin TAB] 500 mg PO Q24HR #10 tablet 12/20/13 Unknown Rx Active Meds: Active Medications Acetaminophen (Tylenol) 650 mg PO Q4H PRN PRN Reason: Pain MILD(1-3)/Fever >100.5/TURPIN Dextrose (D50w (25gm) Syringe) 0 ml IV PRN PRN PRN Reason: Hypoglycemia Famotidine (Pepcid) 10 mg IV BID VIOLA Insulin Human Regular 100 (units/ Sodium Chloride) 100 mls @ 1 mls/hr IV TITR VIOLA; Protocol Sodium Chloride (Nacl 0.9% 1000 Ml) 1,000 mls @ 150 mls/hr IV DIRECT VIOLA Morphine Sulfate (Morphine) 2 mg IV Q4H PRN PRN Reason: Pain, Moderate (4-6) Ondansetron HCl (Zofran) 4 mg IV Q8H PRN PRN Reason: Nausea And Vomiting Sodium Chloride (Sodium Chloride Flush Syringe 10 Ml) 10 ml IV PRN PRN PRN Reason: LINE FLUSH Sodium Chloride (Sodium Chloride Flush Syringe 10 Ml) 10 ml IV BID VIOLA Sodium Chloride (Sodium Chloride Flush Syringe 10 Ml) 10 ml IV PRN PRN PRN Reason: LINE FLUSH Review of Systems ROS unobtainable: due to mental status (altered mental status) Exam - Constitutional Vitals: Temp Pulse Resp BP Pulse Ox 104 H 26 H 149/93 93 11/27/18 23:40 11/27/18 23:40 11/27/18 23:40 11/27/18 23:40 General appearance: Present: no acute distress, obese - EENT Eyes: Present: PERRL, EOM intact ENT: hearing intact, clear oral mucosa - Neck Neck: Present: supple, normal ROM - Respiratory Respiratory effort: normal Respiratory: bilateral: CTA - Cardiovascular Rhythm: regular (with tachycardia) Heart Sounds: Present: S1 & S2. Absent: rub, click - Extremities Extremities: pulses symmetrical, No edema - Abdominal General gastrointestinal: Present: soft, non-tender, non-distended, normal bowel sounds Female genitourinary: Present: deferred - Integumentary Integumentary: Present: clear, warm, dry - Musculoskeletal Musculoskeletal: other (could not be assessed due to altered mental status) - Psychiatric Psychiatric: other (could not be assessed due to altered mental status) - Neurologic Neurologic: other (patient is confused and unable to follow commands) Results - Labs CBC & Chem 7: 11/28/18 01:01 11/28/18 01:01 Labs: Laboratory Last Values WBC 15.1 K/mm3 (4.5-11.0) H 11/28/18 01:01 RBC 6.19 M/mm3 (3.65-5.03) H 11/28/18 01:01 Hgb 17.4 gm/dl (10.1-14.3) H 11/28/18 01:01 Hct 54.6 % (30.3-42.9) H 11/28/18 01:01 MCV 88 fl (79-97) 11/28/18 01:01 MCH 28 pg (28-32) 11/28/18 01:01 MCHC 32 % (30-34) 11/28/18 01:01 RDW 19.6 % (13.2-15.2) H 11/28/18 01:01 Plt Count 308 K/mm3 (140-440) 11/28/18 01:01 Lymph % (Auto) 6.3 % (13.4-35.0) L 11/28/18 01:01 [place] % (Auto) 6.1 % (0.0-7.3) 11/28/18 01:01 Eos % (Auto) 0.0 % (0.0-4.3) 11/28/18 01:01 Baso % (Auto) 0.4 % (0.0-1.8) 11/28/18 01:01 Lymph # 0.9 K/mm3 (1.2-5.4) L 11/28/18 01:01 [place] # 0.9 K/mm3 (0.0-0.8) H 11/28/18 01:01 Eos # 0.0 K/mm3 (0.0-0.4) 11/28/18 01:01 Baso # 0.1 K/mm3 (0.0-0.1) 11/28/18 01:01 Seg Neutrophils % 87.2 % (40.0-70.0) H 11/28/18 01:01 Seg Neutrophils # 13.2 K/mm3 (1.8-7.7) H 11/28/18 01:01 PT 15.6 Sec. (12.2-14.9) H 11/28/18 01:01 INR 1.27 (0.87-1.13) H 11/28/18 01:01 APTT 25.1 Sec. (24.2-36.6) 11/28/18 01:01 ABG pH 7.414 pH Units (7.350-7.450) 11/28/18 01:01 ABG pCO2 48.8 mm Hg 11/28/18 01:01 ABG pO2 65.7 mm Hg (80.0-90.0) L 11/28/18 01:01 ABG HCO3 30.5 mmol/L (20.0-26.0) H 11/28/18 01:01 ABG O2 Saturation 91.3 % (95.0-99.0) L 11/28/18 01:01 ABG O2 Content 22.2 (0.0-44) 11/28/18 01:01 ABG Base Excess 4.6 mmol/L (-2.0-3.0) H 11/28/18 01:01 ABG Hemoglobin 18.0 gm/dl (12.0-16.0) H 11/28/18 01:01 ABG Carboxyhemoglobin 3.1 % (0.0-5.0) 11/28/18 01:01 ABG Methemoglobin 0.5 % (0.0-1.5) 11/28/18 01:01 VBG pH 7.414 (7.320-7.420) 11/28/18 01:01 88.0 % (95.0-99.0) L 11/28/18 01:01 21 % 11/28/18 01:01 Sodium 141 mmol/L (137-145) 11/28/18 01:01 Potassium 5.9 mmol/L (3.6-5.0) H 11/28/18 01:01 Chloride 92.9 mmol/L (98-107) L 11/28/18 01:01 Carbon Dioxide 29 mmol/L (22-30) 11/28/18 01:01 25 mmol/L 11/28/18 01:01 BUN 20 mg/dL (7-17) H 11/28/18 01:01 1.3 mg/dL (0.7-1.2) H 11/28/18 01:01 Estimated GFR 55 ml/min 11/28/18 01:01 15 % 11/28/18 01:01 Glucose 1088 mg/dL (65-100) H* 11/28/18 01:01 POC Glucose > 500 (70-105) H 11/28/18 02:39 Lactic Acid 3.50 mmol/L (0.7-2.0) H* 11/28/18 01:01 Calcium 9.8 mg/dL (8.4-10.2) 11/28/18 01:01 Magnesium 3.70 mg/dL (1.7-2.3) H 11/28/18 01:01 2.40 mg/dL (0.1-1.2) H 11/28/18 01:01 1.3 mg/dL (0-0.2) H 11/28/18 01:01 1.1 mg/dL 11/28/18 01:01 AST 13 units/L (5-40) 11/28/18 01:01 ALT 31 units/L (7-56) 11/28/18 01:01 225 units/L (35-129) H 11/28/18 01:01 30.0 umol/L (25-60) 11/28/18 01:01 228 units/L (30-135) H 11/28/18 01:01 0.030 ng/mL (0.00-0.029) H 11/28/18 01:01 7.7 g/dL (6.3-8.2) 11/28/18 01:01 3.8 g/dL (3.9-5) L 11/28/18 01:01 1.0 % 11/28/18 01:01 Triglycerides 356 mg/dL (2-149) H 11/28/18 01:01 Cholesterol 200 mg/dL (50-199) H 11/28/18 01:01 125 mg/dL (50-130) 11/28/18 01:01 39 mg/dL (40-59) L 11/28/18 01:01 5.12 % 11/28/18 01:01 TSH 0.288 mlU/mL (0.270-4.200) 11/28/18 01:01 HCG, Quant < 2 mIU/mL (0-4) 11/28/18 01:01 Straw (Yellow) 11/28/18 00:37 Clear (Clear) 11/28/18 00:37 7.0 (5.0-7.0) 11/28/18 00:37 Ur Specific [place] 1.023 (1.003-1.030) 11/28/18 00:37 30 mg/dl mg/dL (Negative) 11/28/18 00:37 >=500 mg/dL (Negative) 11/28/18 00:37 Tr mg/dL (Negative) 11/28/18 00:37 Sm (Negative) 11/28/18 00:37 Neg (Negative) 11/28/18 00:37 Neg (Negative) 11/28/18 00:37 < 2.0 mg/dL (<2.0) 11/28/18 00:37 Ur Leukocyte Esterase Neg (Negative) 11/28/18 00:37 < 1.0 /HPF (0.0-6.0) 11/28/18 00:37 1.0 /HPF (0.0-6.0) 11/28/18 00:37 Urine HCG, Qual Negative (Negative) 11/28/18 Unknown Salicylates < 0.3 mg/dL (2.8-20.0) L 11/28/18 01:01 Presumptive negative 11/28/18 00:37 Presumptive negative 11/28/18 00:37 Acetaminophen < 5.0 ug/mL (10.0-30.0) L 11/28/18 01:01 Ur Barbiturates Screen Presumptive negative 11/28/18 00:37 Ur Phencyclidine Scrn Presumptive negative 11/28/18 00:37 Ur Amphetamines Screen Presumptive negative 11/28/18 00:37 U Benzodiazepines Scrn Presumptive negative 11/28/18 00:37 Presumptive negative 11/28/18 00:37 U Marijuana (THC) Screen Presumptive negative 11/28/18 00:37 Disclamer 11/28/18 00:37 Plasma/Serum Alcohol < 0.01 % (0-0.07) 11/28/18 01:01 Blood Type B POSITIVE 11/28/18 01:01 Antibody Screen Negative 11/28/18 01:01 Assessment and Plan Assessment and plan: Hyperosmolar hyperglycemic state (HHS) in a newly diagnosed DM -Patient will be admitted to the ICU on insulin drip -Continue serial BMP level monitoring -Will check hemoglobin A1c level Acute respiratory failure with hypoxia -Continue oxygen supplementation as needed Severe sepsis -Probably secondary to bronchiectasis -On IV antibiotic with levofloxacin -CT abd/pelvis showed generalized bronchiectasis -Blood cultures pending Acute metabolic encephalopathy -Head CT scan negative -We'll monitor clinically Elevated troponin -Probably secondary to demand ischemia due to acute process -We'll continue serial troponin and EKG monitoring EDGARDO -Probably vasomotor nephropathy due to dehydration -On IV fluid, will monitor creatinine level Electrolyte abnormalities (hyperkalemia and hypermagnesemia) -We will hydrate patient and monitor levels Abnormal LFT -Probably due to acute process -CT abd/pelvis negative for liver pathology -We'll monitor levels Hypertension -Stable -On when necessary hydralazine Chronic systolic heart failure with EF of 20-25% -Status post AICD placement -No acute exacerbation GERD -On famotidine DVT prophylaxis with heparin Disposition: I spent 45 minutes providing critical care to this seriously ill patient who requires frequent reassessments of her metabolic profile and respiratory status.
[2018-11-28] MEDS ORDERED: APRESOLINE IV PRN (03:41)
[2018-11-28 03:47] LABS: BUN/Creatinine Ratio 17; Blood Urea Nitrogen 20 mg/dL (7-17); Calcium 9.4 mg/dL (8.4-10.2); Hemolysis Index 16
[2018-11-28] MEDS ORDERED: NACL 0.9% 1000 ML 1,000 ML IV SCH ×2 (04:00→13:00)
[2018-11-28] MEDS ORDERED: NACL 0.9% 1000 ML 1,000 ML ONE (04:43)
[2018-11-28 08:25] LABS: BUN/Creatinine Ratio 13; Blood Urea Nitrogen 16 mg/dL (7-17); Calcium 9.1 mg/dL (8.4-10.2); Hemolysis Index 7
[2018-11-28] MEDS ORDERED: LEVAQUIN 750MG/150ML 750 MG/150 ML BAG IV SCH (10:00)
--- NOTE | 2018-11-28 11:54 | Event Note ---
Date: 11/28/18 Patient with hyperglycemic hyperosmolar syndrome, on Insulin drip. I have seen and examined her. She also has multiple PVCs. Cardiology to see. ID Physician consulted for poss sepsis vs SIRS.
--- NOTE | 2018-11-28 12:42 | Consultation ---
History of Present Illness Reason for consult: other (dka) History of present illness: This is a 38 yo AAF with hx of cMP sp AICD placement who comes in with lethary. She has had LE discoloration. This got worse associated w lethargy. She was noted to be in DKA. She was started on fluids and insulin drip Presently pt is lethargic but arousable. Past History Past Medical History: arthritis, GERD, hypertension, other (non-ischemic cardiomyopathy status post AICD placement) Past Surgical History: Other (cholecystectomy, AICD placement, back surgery) Social history: no significant social history (no reported history of tobacco, alcohol or illicit drug use) Family history: other (could not be obtained due to altered mental status) Medications and Allergies Allergies Allergy/AdvReac Type Severity Reaction Status Date / Time lisinopril AdvReac Severe SORE Verified 12/17/13 19:00 THROAT;PERSISTENT COUGH Home Medications Medication Instructions Recorded Confirmed Last Taken Type Aspirin [Aspirin BABY CHEW TAB] 81 mg PO QDAY 11/28/18 11/28/18 Unknown History Fluticasone [Flonase] 1 spray NS BID 11/28/18 11/28/18 Unknown History Furosemide [Lasix TAB] 40 mg PO BID 11/28/18 11/28/18 Unknown History Ibuprofen [Motrin] 600 mg PO Q6H PRN 11/28/18 11/28/18 Unknown History Montelukast [Singulair] 10 mg PO QPM 11/28/18 11/28/18 Unknown History Mycophenolate [Cellcept] 500 mg PO BID 11/28/18 11/28/18 Unknown History Mycophenolate [Cellcept] 500 mg PO BID PRN MDD 2 TABS 11/28/18 11/28/18 Unknown History Pantoprazole [Protonix] 40 mg PO QDAY 11/28/18 11/28/18 Unknown History Sacubitril/Valsartan [Entresto 1 each PO BID 11/28/18 11/28/18 Unknown History 49-51 mg] predniSONE [Deltasone] 50 mg PO QDAY 11/28/18 11/28/18 Unknown History raNITIdine HCl [Zantac] 150 mg PO BID 11/28/18 11/28/18 Unknown History Active Meds: Active Medications Acetaminophen (Tylenol) 650 mg PO Q4H PRN PRN Reason: Pain MILD(1-3)/Fever >100.5/TURPIN Dextrose (D50w (25gm) Syringe) 0 ml IV PRN PRN PRN Reason: Hypoglycemia Famotidine (Pepcid) 10 mg IV BID VIOL[place] Heparin Sodium (Porcine) (Heparin) 5,000 unit SUB-Q Q8HR VIOLA Hydralazine HCl (Apresoline) 10 mg IV Q6HR PRN PRN Reason: Blood Pressure Insulin Human Regular 100 (units/ Sodium Chloride) 100 mls @ 1 mls/hr IV TITR VIOLA; Protocol Last Admin: 11/28/18 04:00 Dose: 8 units/hr, 8 mls/hr Documented by: Sodium Chloride (Nacl 0.9% 1000 Ml) 1,000 mls @ 125 mls/hr IV DIRECT VIOLA Last Admin: 11/28/18 06:20 Dose: 100 mls/hr Documented by: Levofloxacin/Dextrose (Levaquin 750mg/150ml) 750 mg in 150 mls @ 100 mls/hr IV Q24HR VIOLA; Protocol Sodium Chloride (Nacl 0.9% 1000 Ml) 1,000 mls @ 75 mls/hr IV DIRECT VIOLA Morphine Sulfate (Morphine) 2 mg IV Q4H PRN PRN Reason: Pain, Moderate (4-6) Ondansetron HCl (Zofran) 4 mg IV Q8H PRN PRN Reason: Nausea And Vomiting Sodium Chloride (Sodium Chloride Flush Syringe 10 Ml) 10 ml IV BID VIOLA Sodium Chloride (Sodium Chloride Flush Syringe 10 Ml) 10 ml IV PRN PRN PRN Reason: LINE FLUSH Review of Systems ROS unobtainable: due to mental status Physical Examination Vital signs: Vital Signs Temp Pulse Resp BP Pulse Ox 98.0 F 92 H 26 H 149/93 93 11/27/18 23:40 11/27/18 23:40 11/27/18 23:40 11/27/18 23:40 11/27/18 23:40 General appearance: lethargic Eyes: non-icteric ENT: oropharynx dry Neck: supple Effort: normal Ascultation: Bilateral: diminished breath sounds Cardiovascular: regular rate and rhythm Gastrointestinal: normoactive bowel sounds, non-tender, non-distended, other (obese) Extremities: other (discolration noted in LE) Results - Laboratory Findings CBC and BMP: 11/28/18 01:01 11/28/18 17:17 ABG ABG pH 7.414 pH Units (7.350-7.450) 11/28/18 01:01 ABG pCO2 48.8 mm Hg 11/28/18 01:01 ABG pO2 65.7 mm Hg (80.0-90.0) L 11/28/18 01:01 ABG O2 Saturation 91.3 % (95.0-99.0) L 11/28/18 01:01 PT/INR, D-dimer PT 15.6 Sec. (12.2-14.9) H 11/28/18 01:01 INR 1.27 (0.87-1.13) H 11/28/18 01:01 Abnormal lab findings: Abnormal Labs 11/27/18 11/28/18 11/28/18 23:40 01:01 01:01 WBC 15.1 H RBC 6.19 H Hgb 17.4 H Hct 54.6 H RDW 19.6 H Lymph % (Auto) 6.3 L Lymph # 0.9 L [place] # 0.9 H Seg Neutrophils % 87.2 H Seg Neutrophils # 13.2 H PT 15.6 H INR 1.27 H ABG pO2 ABG HCO3 ABG O2 Saturation ABG Base Excess ABG Hemoglobin Oxyhemoglobin Sodium Potassium Chloride BUN Creatinine Glucose POC Glucose > 500 H Hemoglobin A1c Lactic Acid Phosphorus Magnesium Total Bilirubin Direct Bilirubin Alkaline Phosphatase Total Creatine Kinase Troponin T Albumin Triglycerides Cholesterol HDL Cholesterol Salicylates Acetaminophen 11/28/18 11/28/18 11/28/18 01:01 01:01 01:01 WBC RBC Hgb Hct RDW Lymph % (Auto) Lymph # [place] # Seg Neutrophils % Seg Neutrophils # PT INR ABG pO2 ABG HCO3 ABG O2 Saturation ABG Base Excess ABG Hemoglobin Oxyhemoglobin Sodium Potassium 5.9 H Chloride 92.9 L BUN 20 H Creatinine 1.3 H Glucose 1088 H* POC Glucose Hemoglobin A1c Lactic Acid 3.50 H* Phosphorus Magnesium Total Bilirubin 2.40 H Direct Bilirubin 1.3 H Alkaline Phosphatase 225 H Total Creatine Kinase Troponin T 0.030 H Albumin 3.8 L Triglycerides 356 H Cholesterol 200 H HDL Cholesterol 39 L Salicylates < 0.3 L Acetaminophen 11/28/18 11/28/18 11/28/18 01:01 01:01 01:01 WBC RBC Hgb Hct RDW Lymph % (Auto) Lymph # [place] # Seg Neutrophils % Seg Neutrophils # PT INR ABG pO2 65.7 L ABG HCO3 30.5 H ABG O2 Saturation 91.3 L ABG Base Excess 4.6 H ABG Hemoglobin 18.0 H Oxyhemoglobin 88.0 L Sodium Potassium Chloride BUN Creatinine Glucose POC Glucose Hemoglobin A1c Lactic Acid Phosphorus Magnesium 3.70 H Total Bilirubin Direct Bilirubin Alkaline Phosphatase Total Creatine Kinase 228 H Troponin T Albumin Triglycerides Cholesterol HDL Cholesterol Salicylates Acetaminophen < 5.0 L 11/28/18 11/28/18 11/28/18 01:01 02:39 03:17 WBC RBC Hgb Hct RDW Lymph % (Auto) Lymph # [place] # Seg Neutrophils % Seg Neutrophils # PT INR ABG pO2 ABG HCO3 ABG O2 Saturation ABG Base Excess ABG Hemoglobin Oxyhemoglobin Sodium Potassium Chloride BUN Creatinine Glucose POC Glucose > 500 H Hemoglobin A1c 12.5 H Lactic Acid 3.00 H* Phosphorus Magnesium Total Bilirubin Direct Bilirubin Alkaline Phosphatase Total Creatine Kinase Troponin T Albumin Triglycerides Cholesterol HDL Cholesterol Salicylates Acetaminophen 11/28/18 11/28/18 11/28/18 03:17 03:17 03:35 WBC RBC Hgb Hct RDW Lymph % (Auto) Lymph # [place] # Seg Neutrophils % Seg Neutrophils # PT INR ABG pO2 ABG HCO3 ABG O2 Saturation ABG Base Excess ABG Hemoglobin Oxyhemoglobin Sodium Potassium 6.1 H* Chloride 97.6 L BUN 20 H Creatinine Glucose 927 H* POC Glucose > 500 H Hemoglobin A1c Lactic Acid Phosphorus 4.70 H Magnesium 3.70 H Total Bilirubin Direct Bilirubin Alkaline Phosphatase Total Creatine Kinase Troponin T Albumin Triglycerides Cholesterol HDL Cholesterol Salicylates Acetaminophen 11/28/18 11/28/18 11/28/18 04:43 05:35 06:30 WBC RBC Hgb Hct RDW Lymph % (Auto) Lymph # [place] # Seg Neutrophils % Seg Neutrophils # PT INR ABG pO2 ABG HCO3 ABG O2 Saturation ABG Base Excess ABG Hemoglobin Oxyhemoglobin Sodium Potassium Chloride BUN Creatinine Glucose POC Glucose > 500 H > 500 H > 500 H Hemoglobin A1c Lactic Acid Phosphorus Magnesium Total Bilirubin Direct Bilirubin Alkaline Phosphatase Total Creatine Kinase Troponin T Albumin Triglycerides Cholesterol HDL Cholesterol Salicylates Acetaminophen 11/28/18 11/28/18 11/28/18 07:50 07:50 07:50 WBC RBC Hgb Hct RDW Lymph % (Auto) Lymph # [place] # Seg Neutrophils % Seg Neutrophils # PT INR ABG pO2 ABG HCO3 ABG O2 Saturation ABG Base Excess ABG Hemoglobin Oxyhemoglobin Sodium 156 H D Potassium 3.3 L D Chloride 112.8 H BUN Creatinine Glucose 409 H POC Glucose Hemoglobin A1c Lactic Acid 6.20 H* Phosphorus Magnesium Total Bilirubin Direct Bilirubin Alkaline Phosphatase Total Creatine Kinase Troponin T 0.030 H D Albumin Triglycerides Cholesterol HDL Cholesterol Salicylates Acetaminophen - Diagnostic Findings Chest x-ray: report reviewed, image reviewed Assessment and Plan - Patient Problems (1) cardiomyopathy Current Visit: Yes Status: Acute (2) Lethargy Current Visit: Yes Status: Acute (3) AICD (automatic cardioverter/defibrillator) present Current Visit: Yes Status: Acute (4) Discoloration of skin of lower leg Current Visit: Yes Status: Acute (5) Acute renal insufficiency Current Visit: Yes Status: Acute (6) Hyperosmolar coma Current Visit: Yes Status: Acute (7) Anemia Current Visit: No Status: Acute
[2018-11-28] MEDS ORDERED: LEVAQUIN 750MG/150ML 750 MG/150 ML BAG IV ONE (13:17)
[2018-11-28] MEDS: HEPARIN SUB-Q SCH ×2 (13:33→16:43)
[2018-11-28] MEDS: SODIUM CHLORIDE FLUSH SYRINGE 10 ML IV SCH (13:34)
[2018-11-28] MEDS: PEPCID IV SCH (13:35)
[2018-11-28] MEDS: CORDARONE 900 MG in D5W 482 ML IV SCH (15:20)
[2018-11-28 15:57] LABS: BUN/Creatinine Ratio 13; Blood Urea Nitrogen 14 mg/dL (7-17); Hemolysis Index 158
--- NOTE | 2018-11-28 16:15 | Consultation ---
History of Present Illness - Reason for Consult Consult date: 11/28/18 - History of Present Illness 38 yo F PMHx -related cardiomyopathy (s/p ICD) admitted with weakness. It's unclear how long her symptoms have been going on for, however she is noted to have lethargy, and newfound bilateral foot discolouration, which was the reason the patient's fianc brought her to the ER. It's noted the discolouration did begin the day of admission. She was not in pain on admission, and it's un clear when she was last in her usual state of health. She has associated nausea and vomiting for the past 2-3 days. They deny fevers, sweats, chills prior to admission, but she complains of being warm during my interview. She has been afebrile since admission with a leukocytosis to 15 with 87% katlin trophils. She is currently receiving levofloxacin. 11/28 BCx are NGTD. CXR with bibasilar atelectasis, CTAP with no acute abdominal disease, + cardiomegaly, and bronchiectasis. CT ehad without abnormality. Review of Systems: Bold if positive, otherwise negative General: fevers, chills, rigors HEENT: visual disturbance, diplopia, eye pain Respiratory: cough, sputum, hemoptysis, shortness of breath Cardiovascular: chest pain, syncope Gastrointestinal: nausea, vomiting, diarrhea, abdominal pain Genitourinary: dysuria, hematuria, flank pain Musculoskeletal: neck pain, back pain, joint pain, edema Neurologic: headaches, seizures Hematologic: easy bruising or bleeding Endocrine: night sweats, acute weight loss Skin: rash, jaundice, redness Psychiatric: suicidal, homicidal ideation Past History Past Medical History: arthritis, GERD, hypertension, other (non-ischemic cardiomyopathy status post AICD placement) Past Surgical History: Other (cholecystectomy, AICD placement, back surgery) Social history: no significant social history (no reported history of tobacco, alcohol or illicit drug use) Family history: other (could not be obtained due to altered mental status) Medications and Allergies Allergies Allergy/AdvReac Type Severity Reaction Status Date / Time lisinopril AdvReac Severe SORE Verified 12/17/13 19:00 THROAT;PERSISTENT COUGH Home Medications Medication Instructions Recorded Confirmed Last Taken Type Aspirin [Aspirin BABY CHEW TAB] 81 mg PO QDAY 11/28/18 11/28/18 Unknown History Fluticasone [Flonase] 1 spray NS BID 11/28/18 11/28/18 Unknown History Furosemide [Lasix TAB] 40 mg PO BID 11/28/18 11/28/18 Unknown History Ibuprofen [Motrin] 600 mg PO Q6H PRN 11/28/18 11/28/18 Unknown History Montelukast [Singulair] 10 mg PO QPM 11/28/18 11/28/18 Unknown History Mycophenolate [Cellcept] 500 mg PO BID 11/28/18 11/28/18 Unknown History Mycophenolate [Cellcept] 500 mg PO BID PRN MDD 2 TABS 11/28/18 11/28/18 Unknown History Pantoprazole [Protonix] 40 mg PO QDAY 11/28/18 11/28/18 Unknown History Sacubitril/Valsartan [Entresto 1 each PO BID 11/28/18 11/28/18 Unknown History 49-51 mg] predniSONE [Deltasone] 50 mg PO QDAY 11/28/18 11/28/18 Unknown History raNITIdine HCl [Zantac] 150 mg PO BID 11/28/18 11/28/18 Unknown History Active Meds: Active Medications Acetaminophen (Tylenol) 650 mg PO Q4H PRN PRN Reason: Pain MILD(1-3)/Fever >100.5/TURPIN Dextrose (D50w (25gm) Syringe) 0 ml IV PRN PRN PRN Reason: Hypoglycemia Famotidine (Pepcid) 10 mg IV BID [facility] Last Admin: 11/28/18 13:35 Dose: Not Given Documented by: Heparin Sodium (Porcine) (Heparin) 5,000 unit SUB-Q Q8HR [facility] Last Admin: 11/28/18 13:33 Dose: Not Given Documented by: Hydralazine HCl (Apresoline) 10 mg IV Q6HR PRN PRN Reason: Blood Pressure Insulin Human Regular 100 (units/ Sodium Chloride) 100 mls @ 1 mls/hr IV TITR [facility]; Protocol Last Titration: 11/28/18 14:00 Dose: 1 units/hr, 1 mls/hr Documented by: Sodium Chloride (Nacl 0.9% 1000 Ml) 1,000 mls @ 125 mls/hr IV DIRECT [facility] Last Admin: 11/28/18 06:20 Dose: 100 mls/hr Documented by: Levofloxacin/Dextrose (Levaquin 750mg/150ml) 750 mg in 150 mls @ 100 mls/hr IV Q24HR [facility]; Protocol Last Admin: 11/28/18 13:20 Dose: 100 mls/hr Documented by: Sodium Chloride (Nacl 0.9% 1000 Ml) 1,000 mls @ 75 mls/hr IV DIRECT [facility] Potassium Chloride/Dextrose/Sod Cl (D5w/0.45% Nacl/Kcl 20 Meq) 20 meq in 1,000 mls @ 125 mls/hr IV DIRECT [facility] Amiodarone HCl 900 mg/ (Dextrose) 500 mls @ 33.333 mls/hr IV DIRECT [facility]OL[facility]; Protocol Morphine Sulfate (Morphine) 2 mg IV Q4H PRN PRN Reason: Pain, Moderate (4-6) Ondansetron HCl (Zofran) 4 mg IV Q8H PRN PRN Reason: Nausea And Vomiting Sodium Chloride (Sodium Chloride Flush Syringe 10 Ml) 10 ml IV BID [facility] Last Admin: 11/28/18 13:34 Dose: Not Given Documented by: Sodium Chloride (Sodium Chloride Flush Syringe 10 Ml) 10 ml IV PRN PRN PRN Reason: LINE FLUSH Physical Examination - Physical Exam Narrative exam: Physical Exam: Constitutional: Alert, cooperative. No acute distress Head, Ears, Nose: Normocephalic, atraumatic. External ears, nose normal Eyes: Conjunctivae/corneas clear. No icterus. No ptosis. Neck: Supple, no meningeal signs Oral: dentition fair, no thrush Cardiovascular: S1, S2 normal. L sided ICD in place, no tenderness Respiratory: Good air entry, clear to auscultation bilaterally GI: Soft, non-tender; bowel sounds normal. No peritoneal signs. Musculoskeletal: No pedal edema, no cyanosis. Skin: No rash or abscess Hem/Lymphatic: No palpable cervical or supraclavicular nodes. No lymphangitis Psych: Mood ok. Affect normal Neurological: Awake, alert, oriented. No gross abnormality - Constitutional Vitals: Vital Signs Temp Pulse Resp BP Pulse Ox 98.0 F 174 H 22 108/86 80 L 11/27/18 23:40 11/28/18 13:01 11/28/18 13:01 11/28/18 13:01 11/28/18 11:00 Temperature -Last 24 Hours Temperature 98.0 F Results - Labs CBC & Chem 7: 11/28/18 01:01 11/28/18 15:14 Labs: Abnormal lab results 11/27/18 11/28/18 11/28/18 Range/Units 23:40 01:01 01:01 WBC 15.1 H (4.5-11.0) K/mm3 RBC 6.19 H (3.65-5.03) M/mm3 Hgb 17.4 H (10.1-14.3) gm/dl Hct 54.6 H (30.3-42.9) % RDW 19.6 H (13.2-15.2) % Lymph % (Auto) 6.3 L (13.4-35.0) % Lymph # 0.9 L (1.2-5.4) K/mm3 [place] # 0.9 H (0.0-0.8) K/mm3 Seg Neutrophils % 87.2 H (40.0-70.0) % Seg Neutrophils # 13.2 H (1.8-7.7) K/mm3 PT 15.6 H (12.2-14.9) Sec. INR 1.27 H (0.87-1.13) ABG pO2 (80.0-90.0) mm Hg ABG HCO3 (20.0-26.0) mmol/L ABG O2 Saturation (95.0-99.0) % ABG Base Excess (-2.0-3.0) mmol/L ABG Hemoglobin (12.0-16.0) gm/dl Oxyhemoglobin (95.0-99.0) % Sodium (137-145) mmol/L Potassium (3.6-5.0) mmol/L Chloride (98-107) mmol/L Carbon Dioxide (22-30) mmol/L BUN (7-17) mg/dL Creatinine (0.7-1.2) mg/dL Glucose (65-100) mg/dL POC Glucose > 500 H (70-105) Hemoglobin A1c (4-6) % Lactic Acid (0.7-2.0) mmol/L Phosphorus (2.5-4.5) mg/dL Magnesium (1.7-2.3) mg/dL Total Bilirubin (0.1-1.2) mg/dL Direct Bilirubin (0-0.2) mg/dL Alkaline Phosphatase (35-129) units/L Total Creatine Kinase (30-135) units/L Troponin T (0.00-0.029) ng/mL Albumin (3.9-5) g/dL Triglycerides (2-149) mg/dL Cholesterol (50-199) mg/dL HDL Cholesterol (40-59) mg/dL Salicylates (2.8-20.0) mg/dL Acetaminophen (10.0-30.0) ug/mL 11/28/18 11/28/18 11/28/18 Range/Units 01:01 01:01 01:01 WBC (4.5-11.0) K/mm3 RBC (3.65-5.03) M/mm3 Hgb (10.1-14.3) gm/dl Hct (30.3-42.9) % RDW (13.2-15.2) % Lymph % (Auto) (13.4-35.0) % Lymph # (1.2-5.4) K/mm3 [place] # (0.0-0.8) K/mm3 Seg Neutrophils % (40.0-70.0) % Seg Neutrophils # (1.8-7.7) K/mm3 PT (12.2-14.9) Sec. INR (0.87-1.13) ABG pO2 (80.0-90.0) mm Hg ABG HCO3 (20.0-26.0) mmol/L ABG O2 Saturation (95.0-99.0) % ABG Base Excess (-2.0-3.0) mmol/L ABG Hemoglobin (12.0-16.0) gm/dl Oxyhemoglobin (95.0-99.0) % Sodium (137-145) mmol/L Potassium 5.9 H (3.6-5.0) mmol/L Chloride 92.9 L (98-107) mmol/L Carbon Dioxide (22-30) mmol/L BUN 20 H (7-17) mg/dL Creatinine 1.3 H (0.7-1.2) mg/dL Glucose 1088 H* (65-100) mg/dL POC Glucose (70-105) Hemoglobin A1c (4-6) % Lactic Acid 3.50 H* (0.7-2.0) mmol/L Phosphorus (2.5-4.5) mg/dL Magnesium (1.7-2.3) mg/dL Total Bilirubin 2.40 H (0.1-1.2) mg/dL Direct Bilirubin 1.3 H (0-0.2) mg/dL Alkaline Phosphatase 225 H (35-129) units/L Total Creatine Kinase (30-135) units/L Troponin T 0.030 H (0.00-0.029) ng/mL Albumin 3.8 L (3.9-5) g/dL Triglycerides 356 H (2-149) mg/dL Cholesterol 200 H (50-199) mg/dL HDL Cholesterol 39 L (40-59) mg/dL Salicylates < 0.3 L (2.8-20.0) mg/dL Acetaminophen (10.0-30.0) ug/mL 11/28/18 11/28/18 11/28/18 Range/Units 01:01 01:01 01:01 WBC (4.5-11.0) K/mm3 RBC (3.65-5.03) M/mm3 Hgb (10.1-14.3) gm/dl Hct (30.3-42.9) % RDW (13.2-15.2) % Lymph % (Auto) (13.4-35.0) % Lymph # (1.2-5.4) K/mm3 [place] # (0.0-0.8) K/mm3 Seg Neutrophils % (40.0-70.0) % Seg Neutrophils # (1.8-7.7) K/mm3 PT (12.2-14.9) Sec. INR (0.87-1.13) ABG pO2 65.7 L (80.0-90.0) mm Hg ABG HCO3 30.5 H (20.0-26.0) mmol/L ABG O2 Saturation 91.3 L (95.0-99.0) % ABG Base Excess 4.6 H (-2.0-3.0) mmol/L ABG Hemoglobin 18.0 H (12.0-16.0) gm/dl Oxyhemoglobin 88.0 L (95.0-99.0) % Sodium (137-145) mmol/L Potassium (3.6-5.0) mmol/L Chloride (98-107) mmol/L Carbon Dioxide (22-30) mmol/L BUN (7-17) mg/dL Creatinine (0.7-1.2) mg/dL Glucose (65-100) mg/dL POC Glucose (70-105) Hemoglobin A1c (4-6) % Lactic Acid (0.7-2.0) mmol/L Phosphorus (2.5-4.5) mg/dL Magnesium 3.70 H (1.7-2.3) mg/dL Total Bilirubin (0.1-1.2) mg/dL Direct Bilirubin (0-0.2) mg/dL Alkaline Phosphatase (35-129) units/L Total Creatine Kinase 228 H (30-135) units/L Troponin T (0.00-0.029) ng/mL Albumin (3.9-5) g/dL Triglycerides (2-149) mg/dL Cholesterol (50-199) mg/dL HDL Cholesterol (40-59) mg/dL Salicylates (2.8-20.0) mg/dL Acetaminophen < 5.0 L (10.0-30.0) ug/mL 11/28/18 11/28/18 11/28/18 Range/Units 01:01 02:39 03:17 WBC (4.5-11.0) K/mm3 RBC (3.65-5.03) M/mm3 Hgb (10.1-14.3) gm/dl Hct (30.3-42.9) % RDW (13.2-15.2) % Lymph % (Auto) (13.4-35.0) % Lymph # (1.2-5.4) K/mm3 [place] # (0.0-0.8) K/mm3 Seg Neutrophils % (40.0-70.0) % Seg Neutrophils # (1.8-7.7) K/mm3 PT (12.2-14.9) Sec. INR (0.87-1.13) ABG pO2 (80.0-90.0) mm Hg ABG HCO3 (20.0-26.0) mmol/L ABG O2 Saturation (95.0-99.0) % ABG Base Excess (-2.0-3.0) mmol/L ABG Hemoglobin (12.0-16.0) gm/dl Oxyhemoglobin (95.0-99.0) % Sodium (137-145) mmol/L Potassium (3.6-5.0) mmol/L Chloride (98-107) mmol/L Carbon Dioxide (22-30) mmol/L BUN (7-17) mg/dL Creatinine (0.7-1.2) mg/dL Glucose (65-100) mg/dL POC Glucose > 500 H (70-105) Hemoglobin A1c 12.5 H (4-6) % Lactic Acid 3.00 H* (0.7-2.0) mmol/L Phosphorus (2.5-4.5) mg/dL Magnesium (1.7-2.3) mg/dL Total Bilirubin (0.1-1.2) mg/dL Direct Bilirubin (0-0.2) mg/dL Alkaline Phosphatase (35-129) units/L Total Creatine Kinase (30-135) units/L Troponin T (0.00-0.029) ng/mL Albumin (3.9-5) g/dL Triglycerides (2-149) mg/dL Cholesterol (50-199) mg/dL HDL Cholesterol (40-59) mg/dL Salicylates (2.8-20.0) mg/dL Acetaminophen (10.0-30.0) ug/mL 11/28/18 11/28/18 11/28/18 Range/Units 03:17 03:17 03:35 WBC (4.5-11.0) K/mm3 RBC (3.65-5.03) M/mm3 Hgb (10.1-14.3) gm/dl Hct (30.3-42.9) % RDW (13.2-15.2) % Lymph % (Auto) (13.4-35.0) % Lymph # (1.2-5.4) K/mm3 [place] # (0.0-0.8) K/mm3 Seg Neutrophils % (40.0-70.0) % Seg Neutrophils # (1.8-7.7) K/mm3 PT (12.2-14.9) Sec. INR (0.87-1.13) ABG pO2 (80.0-90.0) mm Hg ABG HCO3 (20.0-26.0) mmol/L ABG O2 Saturation (95.0-99.0) % ABG Base Excess (-2.0-3.0) mmol/L ABG Hemoglobin (12.0-16.0) gm/dl Oxyhemoglobin (95.0-99.0) % Sodium (137-145) mmol/L Potassium 6.1 H* (3.6-5.0) mmol/L Chloride 97.6 L (98-107) mmol/L Carbon Dioxide (22-30) mmol/L BUN 20 H (7-17) mg/dL Creatinine (0.7-1.2) mg/dL Glucose 927 H* (65-100) mg/dL POC Glucose > 500 H (70-105) Hemoglobin A1c (4-6) % Lactic Acid (0.7-2.0) mmol/L Phosphorus 4.70 H (2.5-4.5) mg/dL Magnesium 3.70 H (1.7-2.3) mg/dL Total Bilirubin (0.1-1.2) mg/dL Direct Bilirubin (0-0.2) mg/dL Alkaline Phosphatase (35-129) units/L Total Creatine Kinase (30-135) units/L Troponin T (0.00-0.029) ng/mL Albumin (3.9-5) g/dL Triglycerides (2-149) mg/dL Cholesterol (50-199) mg/dL HDL Cholesterol (40-59) mg/dL Salicylates (2.8-20.0) mg/dL Acetaminophen (10.0-30.0) ug/mL 11/28/18 11/28/18 11/28/18 Range/Units 04:43 05:35 06:30 WBC (4.5-11.0) K/mm3 RBC (3.65-5.03) M/mm3 Hgb (10.1-14.3) gm/dl Hct (30.3-42.9) % RDW (13.2-15.2) % Lymph % (Auto) (13.4-35.0) % Lymph # (1.2-5.4) K/mm3 [place] # (0.0-0.8) K/mm3 Seg Neutrophils % (40.0-70.0) % Seg Neutrophils # (1.8-7.7) K/mm3 PT (12.2-14.9) Sec. INR (0.87-1.13) ABG pO2 (80.0-90.0) mm Hg ABG HCO3 (20.0-26.0) mmol/L ABG O2 Saturation (95.0-99.0) % ABG Base Excess (-2.0-3.0) mmol/L ABG Hemoglobin (12.0-16.0) gm/dl Oxyhemoglobin (95.0-99.0) % Sodium (137-145) mmol/L Potassium (3.6-5.0) mmol/L Chloride (98-107) mmol/L Carbon Dioxide (22-30) mmol/L BUN (7-17) mg/dL Creatinine (0.7-1.2) mg/dL Glucose (65-100) mg/dL POC Glucose > 500 H > 500 H > 500 H (70-105) Hemoglobin A1c (4-6) % Lactic Acid (0.7-2.0) mmol/L Phosphorus (2.5-4.5) mg/dL Magnesium (1.7-2.3) mg/dL Total Bilirubin (0.1-1.2) mg/dL Direct Bilirubin (0-0.2) mg/dL Alkaline Phosphatase (35-129) units/L Total Creatine Kinase (30-135) units/L Troponin T (0.00-0.029) ng/mL Albumin (3.9-5) g/dL Triglycerides (2-149) mg/dL Cholesterol (50-199) mg/dL HDL Cholesterol (40-59) mg/dL Salicylates (2.8-20.0) mg/dL Acetaminophen (10.0-30.0) ug/mL 11/28/18 11/28/18 11/28/18 Range/Units 07:50 07:50 07:50 WBC (4.5-11.0) K/mm3 RBC (3.65-5.03) M/mm3 Hgb (10.1-14.3) gm/dl Hct (30.3-42.9) % RDW (13.2-15.2) % Lymph % (Auto) (13.4-35.0) % Lymph # (1.2-5.4) K/mm3 [place] # (0.0-0.8) K/mm3 Seg Neutrophils % (40.0-70.0) % Seg Neutrophils # (1.8-7.7) K/mm3 PT (12.2-14.9) Sec. INR (0.87-1.13) ABG pO2 (80.0-90.0) mm Hg ABG HCO3 (20.0-26.0) mmol/L ABG O2 Saturation (95.0-99.0) % ABG Base Excess (-2.0-3.0) mmol/L ABG Hemoglobin (12.0-16.0) gm/dl Oxyhemoglobin (95.0-99.0) % Sodium 156 H D (137-145) mmol/L Potassium 3.3 L D (3.6-5.0) mmol/L Chloride 112.8 H (98-107) mmol/L Carbon Dioxide (22-30) mmol/L BUN (7-17) mg/dL Creatinine (0.7-1.2) mg/dL Glucose 409 H (65-100) mg/dL POC Glucose (70-105) Hemoglobin A1c (4-6) % Lactic Acid 6.20 H* (0.7-2.0) mmol/L Phosphorus (2.5-4.5) mg/dL Magnesium (1.7-2.3) mg/dL Total Bilirubin (0.1-1.2) mg/dL Direct Bilirubin (0-0.2) mg/dL Alkaline Phosphatase (35-129) units/L Total Creatine Kinase (30-135) units/L Troponin T 0.030 H D (0.00-0.029) ng/mL Albumin (3.9-5) g/dL Triglycerides (2-149) mg/dL Cholesterol (50-199) mg/dL HDL Cholesterol (40-59) mg/dL Salicylates (2.8-20.0) mg/dL Acetaminophen (10.0-30.0) ug/mL 11/28/18 11/28/18 11/28/18 Range/Units 10:33 12:52 14:11 WBC (4.5-11.0) K/mm3 RBC (3.65-5.03) M/mm3 Hgb (10.1-14.3) gm/dl Hct (30.3-42.9) % RDW (13.2-15.2) % Lymph % (Auto) (13.4-35.0) % Lymph # (1.2-5.4) K/mm3 [place] # (0.0-0.8) K/mm3 Seg Neutrophils % (40.0-70.0) % Seg Neutrophils # (1.8-7.7) K/mm3 PT (12.2-14.9) Sec. INR (0.87-1.13) ABG pO2 (80.0-90.0) mm Hg ABG HCO3 (20.0-26.0) mmol/L ABG O2 Saturation (95.0-99.0) % ABG Base Excess (-2.0-3.0) mmol/L ABG Hemoglobin (12.0-16.0) gm/dl Oxyhemoglobin (95.0-99.0) % Sodium (137-145) mmol/L Potassium (3.6-5.0) mmol/L Chloride (98-107) mmol/L Carbon Dioxide (22-30) mmol/L BUN (7-17) mg/dL Creatinine (0.7-1.2) mg/dL Glucose (65-100) mg/dL POC Glucose 411 H 204 H 119 H (70-105) Hemoglobin A1c (4-6) % Lactic Acid (0.7-2.0) mmol/L Phosphorus (2.5-4.5) mg/dL Magnesium (1.7-2.3) mg/dL Total Bilirubin (0.1-1.2) mg/dL Direct Bilirubin (0-0.2) mg/dL Alkaline Phosphatase (35-129) units/L Total Creatine Kinase (30-135) units/L Troponin T (0.00-0.029) ng/mL Albumin (3.9-5) g/dL Triglycerides (2-149) mg/dL Cholesterol (50-199) mg/dL HDL Cholesterol (40-59) mg/dL Salicylates (2.8-20.0) mg/dL Acetaminophen (10.0-30.0) ug/mL 11/28/18 11/28/18 11/28/18 Range/Units 14:15 15:14 15:14 WBC (4.5-11.0) K/mm3 RBC (3.65-5.03) M/mm3 Hgb (10.1-14.3) gm/dl Hct (30.3-42.9) % RDW (13.2-15.2) % Lymph % (Auto) (13.4-35.0) % Lymph # (1.2-5.4) K/mm3 [place] # (0.0-0.8) K/mm3 Seg Neutrophils % (40.0-70.0) % Seg Neutrophils # (1.8-7.7) K/mm3 PT (12.2-14.9) Sec. INR (0.87-1.13) ABG pO2 (80.0-90.0) mm Hg ABG HCO3 (20.0-26.0) mmol/L ABG O2 Saturation (95.0-99.0) % ABG Base Excess (-2.0-3.0) mmol/L ABG Hemoglobin (12.0-16.0) gm/dl Oxyhemoglobin (95.0-99.0) % Sodium 151 H (137-145) mmol/L Potassium (3.6-5.0) mmol/L Chloride 112.4 H (98-107) mmol/L Carbon Dioxide 21 L D (22-30) mmol/L BUN (7-17) mg/dL Creatinine (0.7-1.2) mg/dL Glucose 167 H (65-100) mg/dL POC Glucose (70-105) Hemoglobin A1c (4-6) % Lactic Acid 4.80 H* 5.00 H* (0.7-2.0) mmol/L Phosphorus (2.5-4.5) mg/dL Magnesium (1.7-2.3) mg/dL Total Bilirubin (0.1-1.2) mg/dL Direct Bilirubin (0-0.2) mg/dL Alkaline Phosphatase (35-129) units/L Total Creatine Kinase (30-135) units/L Troponin T (0.00-0.029) ng/mL Albumin (3.9-5) g/dL Triglycerides (2-149) mg/dL Cholesterol (50-199) mg/dL HDL Cholesterol (40-59) mg/dL Salicylates (2.8-20.0) mg/dL Acetaminophen (10.0-30.0) ug/mL 11/28/18 Range/Units 15:22 WBC (4.5-11.0) K/mm3 RBC (3.65-5.03) M/mm3 Hgb (10.1-14.3) gm/dl Hct (30.3-42.9) % RDW (13.2-15.2) % Lymph % (Auto) (13.4-35.0) % Lymph # (1.2-5.4) K/mm3 [place] # (0.0-0.8) K/mm3 Seg Neutrophils % (40.0-70.0) % Seg Neutrophils # (1.8-7.7) K/mm3 PT (12.2-14.9) Sec. INR (0.87-1.13) ABG pO2 (80.0-90.0) mm Hg ABG HCO3 (20.0-26.0) mmol/L ABG O2 Saturation (95.0-99.0) % ABG Base Excess (-2.0-3.0) mmol/L ABG Hemoglobin (12.0-16.0) gm/dl Oxyhemoglobin (95.0-99.0) % Sodium (137-145) mmol/L Potassium (3.6-5.0) mmol/L Chloride (98-107) mmol/L Carbon Dioxide (22-30) mmol/L BUN (7-17) mg/dL Creatinine (0.7-1.2) mg/dL Glucose (65-100) mg/dL POC Glucose 114 H (70-105) Hemoglobin A1c (4-6) % Lactic Acid (0.7-2.0) mmol/L Phosphorus (2.5-4.5) mg/dL Magnesium (1.7-2.3) mg/dL Total Bilirubin (0.1-1.2) mg/dL Direct Bilirubin (0-0.2) mg/dL Alkaline Phosphatase (35-129) units/L Total Creatine Kinase (30-135) units/L Troponin T (0.00-0.029) ng/mL Albumin (3.9-5) g/dL Triglycerides (2-149) mg/dL Cholesterol (50-199) mg/dL HDL Cholesterol (40-59) mg/dL Salicylates (2.8-20.0) mg/dL Acetaminophen (10.0-30.0) ug/mL Assessment and Plan Cultures: Blood culture / - NGTD A/P: 38 yo F PMHx -related cardiomyopathy (s/p ICD) admitted with hyperglycemic hyperosmolar syndrome 1. SIRS - Present on admission with leukocytosis, tachycardia, tachypnea. I do n ot see any acute signs of infection at the present time. I would follow up the blood cultures, and if they turn positive re-start antibiotics as appropriate. For now, would stop the levofloxacin 2. Hypergylcemic, hyperosmolar syndrome 3. -induced cardiomyopathy - s/p ICD 4. Leukocytosis - Most likely secondary to volume depletion and #2. Recs: - follow up BCx - Stop levofloxacin MD [facility] M: [phone] O: [phone] F: [phone]
[2018-11-28] MEDS ORDERED: CORDARONE IV ONE (16:32)
[2018-11-28] MEDS: CORDARONE 150 MG in D5W 97 ML IV ONE ×2 (16:34→17:31)
[2018-11-28] MEDS ORDERED: HEPARIN ONE (16:40)
[2018-11-28 17:57] LABS: BUN/Creatinine Ratio 13; Blood Urea Nitrogen 14 mg/dL (7-17); Calcium 8.8 mg/dL (8.4-10.2); Hemolysis Index 76
[2018-11-28] MEDS ORDERED: CORDARONE 150 MG in D5W 97 ML IV ONE (19:30)
[2018-11-29] MEDS: HEPARIN SUB-Q SCH ×2 (01:00→08:53)
[2018-11-29] MEDS: PEPCID IV SCH (02:00)
[2018-11-29] MEDS ORDERED: D5W/0.45% NACL/KCL 20 MEQ 20 MEQ/1,000 ML BAG IV ONE (03:00)
[2018-11-29] MEDS: SODIUM CHLORIDE FLUSH SYRINGE 10 ML IV SCH ×3 (04:30→21:58)
[2018-11-29] MEDS ORDERED: HEPARIN ONE (04:34)
[2018-11-29] MEDS ORDERED: PROTONIX IV ONE (04:35)
[2018-11-29 06:04] LABS: Hemoglobin 16.6 gm/dl (10.1-14.3); Mean Corpuscular HGB Conc 33 % (30-34); Mean Corpuscular Volume 86 fl (79-97); Platelet Count 213 K/mm3 (140-440); Red Blood Count 5.93 M/mm3 (3.65-5.03); Red Cell Distribution Width 19.7 % (13.2-15.2)
[2018-11-29 06:20] LABS: Hemolysis Index 164
[2018-11-29 06:24] LABS: BUN/Creatinine Ratio TNR; Blood Urea Nitrogen TNR mg/dL (7-17); Calcium TNR mg/dL (8.4-10.2)
[2018-11-29 06:25] LABS: Alanine Aminotransferase TNR units/L (7-56); Albumin TNR g/dL (3.9-5)
[2018-11-29 06:50] LABS: Basophils % (Manual) 0 % (0.0-1.8); Eosinophils % (Manual) 0 % (0.0-4.3); Platelet Estimate Consistent w Auto; RBC Morphology Normal; Total Cells Counted 100
[2018-11-29 10:00] LABS: Albumin 3.5 g/dL (3.9-5); Calcium 9.1 mg/dL (8.4-10.2)
[2018-11-29] MEDS ORDERED: PEPCID PO SCH (10:00)
[2018-11-29] MEDS ORDERED: CELLCEPT PO SCH (10:00)
--- NOTE | 2018-11-29 10:34 | Consultation ---
<ROCKY KELLY - Last Filed: 11/29/18 11:09> History of Present Illness Consult date: 11/29/18 Consult reason: known to you History of present illness: Patient is a 38-year old woman who was brought in with altered mental status, generalized weakness, poor oral intake and discoloration of her lower extremity. Initial workup revealed multiple metabolic abnormalities including a glucose greater than 1000, a potassium of 6.1 and a total bilirubin of 2.4. Patient denies prior history of diabetes. She has a history of systemic sclerosis and in on Prednisone with tapered dosing. She has interstitial lung disease, sleep apnea on CPAP and hypertension. She has a cardiac history of severe dilated nonischemic cardiomyopathy by cardiac cath in 2012 that reports normal coronaries but a severely decreased left ventricular ejection fraction 10-15%. Routine echocardiogram have revealed a consistent nonischemic cardiomyopathy. Patient also has an indwelling cardiac defibrillator. On yesterday, while on telemetry, patient was noted with multiple runs of VT. An ICD interrogation revealed the patient was appropriately shocked multiple times on 11/28/2018 for ventricular tachycardia. Patient is currently on intravenous amiodarone. Today, patient is alert and reports she is feeling better. She denies chest pain, shortness of breath and palpitations. Past History Past Medical History: arthritis, GERD, hypertension, other (non-ischemic cardiomyopathy status post AICD placement) Past Surgical History: Other (cholecystectomy, AICD placement, back surgery) Social history: no significant social history (no reported history of tobacco, alcohol or illicit drug use) Family history: other (could not be obtained due to altered mental status) Medications and Allergies Allergies Allergy/AdvReac Type Severity Reaction Status Date / Time lisinopril AdvReac Severe SORE Verified 12/17/13 19:00 THROAT;PERSISTENT COUGH Home Medications Medication Instructions Recorded Confirmed Last Taken Type Aspirin [Aspirin BABY CHEW TAB] 81 mg PO QDAY 11/28/18 11/29/18 11/26/18 History Fluticasone [Flonase] 1 spray NS BID 11/28/18 11/28/18 Unknown History Furosemide [Lasix TAB] 40 mg PO BID 11/28/18 11/28/18 Unknown History Ibuprofen [Motrin] 600 mg PO Q6H PRN 11/28/18 11/28/18 Unknown History Montelukast [Singulair] 10 mg PO QPM 11/28/18 11/28/18 Unknown History Mycophenolate [Cellcept] 500 mg PO BID 11/28/18 11/28/18 Unknown History Mycophenolate [Cellcept] 500 mg PO BID PRN MDD 2 TABS 11/28/18 11/28/18 Unknown History Pantoprazole [Protonix] 40 mg PO QDAY 11/28/18 11/28/18 Unknown History Sacubitril/Valsartan [Entresto 1 each PO BID 11/28/18 11/28/18 Unknown History 49-51 mg] predniSONE [Deltasone] 50 mg PO QDAY 11/28/18 11/28/18 Unknown History raNITIdine HCl [Zantac] 150 mg PO BID 11/28/18 11/28/18 Unknown History Amitriptyline [Elavil] 25 mg PO HS 11/29/18 11/29/18 11/26/18 History Aspirin [Adult Aspirin] 81 mg PO ONCE 11/29/18 11/29/18 11/26/18 History Entresto 49-51 mg 49 mg PO BID 11/29/18 11/29/18 11/26/18 History HYDROcodone/APAP 5-325 5 mg PO Q6HR PRN 11/29/18 11/29/18 Unknown History Active Meds: Active Medications Acetaminophen (Tylenol) 650 mg PO Q4H PRN PRN Reason: Pain MILD(1-3)/Fever >100.5/TURPIN Amitriptyline HCl (Elavil) 25 mg PO HS [facility] Aspirin (Baby Aspirin) 81 mg PO QDAY [facility] Dextrose (D50w (25gm) Syringe) 0 ml IV PRN PRN PRN Reason: Hypoglycemia Fluticasone Propionate (Flonase) 50 mcg NS BID [facility] Heparin Sodium (Porcine) (Heparin) 5,000 unit SUB-Q Q8HR [facility] Last Admin: 11/29/18 08:53 Dose: Not Given Documented by: Hydralazine HCl (Apresoline) 10 mg IV Q6HR PRN PRN Reason: Blood Pressure Insulin Human Regular 100 (units/ Sodium Chloride) 100 mls @ 1 mls/hr IV TITR [facility]; Protocol Last Titration: 11/28/18 22:42 Dose: 0 units/hr, 0 mls/hr Documented by: Amiodarone HCl 900 mg/ (Dextrose) 500 mls @ 33.333 mls/hr IV DIRECT [facility]; Protocol Last Admin: 11/28/18 15:20 Dose: 1 mg/min, 33.333 mls/hr Documented by: Insulin Human Isoph/Insulin Regular (Humulin 70/30) 10 unit SUB-Q BIDDIAB [facility] Montelukast Sodium (Singulair) 10 mg PO QPM [facility] Morphine Sulfate (Morphine) 2 mg IV Q4H PRN PRN Reason: Pain, Moderate (4-6) Mycophenolate Mofetil (Cellcept) 500 mg PO BID [facility] Ondansetron HCl (Zofran) 4 mg IV Q8H PRN PRN Reason: Nausea And Vomiting Pantoprazole Sodium (Protonix) 40 mg PO QDAY [facility] Prednisone (Deltasone) 50 mg PO QDAY [facility] Sodium Chloride (Sodium Chloride Flush Syringe 10 Ml) 10 ml IV BID [facility] Last Admin: 11/29/18 04:30 Dose: Not Given Documented by: Sodium Chloride (Sodium Chloride Flush Syringe 10 Ml) 10 ml IV PRN PRN PRN Reason: LINE FLUSH Physical Examination Vital Signs Temp Pulse Resp BP Pulse Ox 98.0 F 92 H 26 H 149/93 93 11/27/18 23:40 11/27/18 23:40 11/27/18 23:40 11/27/18 23:40 11/27/18 23:40 General appearance: no acute distress HEENT: Positive: PERRL Neck: Positive: trachea midline Cardiac: Positive: Reg Rate and Rhythm Lungs: Positive: Decreased Breath Sounds Neuro: Positive: Grossly Intact Results 11/29/18 05:55 11/29/18 09:08 Cardiac Enzymes 11/29/18 11/29/18 Range/Units 05:55 09:08 AST TNR 351 H CBC 11/29/18 Range/Units 05:55 WBC 29.7 H (4.5-11.0) K/mm3 RBC 5.93 H (3.65-5.03) M/mm3 Hgb 16.6 H (10.1-14.3) gm/dl Hct 51.0 H (30.3-42.9) % Plt Count 213 (140-440) K/mm3 Comprehensive Metabolic Panel 11/28/18 11/28/18 11/29/18 Range/Units 15:14 17:17 05:55 Sodium 151 H 151 H TNR (137-145) mmol/L Potassium 4.3 D 4.5 TNR (3.6-5.0) mmol/L Chloride 112.4 H 112.9 H TNR (98-107) mmol/L Carbon Dioxide 21 L D 21 L TNR (22-30) mmol/L BUN 14 14 TNR (7-17) mg/dL Creatinine 1.1 1.1 TNR (0.7-1.2) mg/dL Glucose 167 H 265 H TNR (65-100) mg/dL Calcium 9.0 8.8 TNR (8.4-10.2) mg/dL AST TNR ALT TNR Alkaline Phosphatase TNR Total Protein TNR Albumin TNR 11/29/18 Range/Units 09:08 Sodium 152 H (137-145) mmol/L Potassium 5.4 H (3.6-5.0) mmol/L Chloride 110.6 H (98-107) mmol/L Carbon Dioxide 20 L (22-30) mmol/L BUN 20 H (7-17) mg/dL Creatinine 1.6 H (0.7-1.2) mg/dL Glucose 237 H (65-100) mg/dL Calcium 9.1 (8.4-10.2) mg/dL AST 351 H ALT 123 H Alkaline Phosphatase 222 H Total Protein 6.7 Albumin 3.5 L Assessment and Plan Hyperosmolar hyperglycemic state newly diagnosed DM Acute metabolic encephalopathy Head CT scan negative Multiple electrolyte abnormalities Systemic sclerosis Sleep apnea on CPAP Interstitial Lung disease Hypertension Chronic systolic heart failure, EF of 20-25% Presence of AICD interrogation revealed multiple ICD discharges on 11/28/18, appropriate, for VT currently on IV amiodarone Elevated troponin Probably secondary to demand ischemia due to acute process We will obtain an echocardiogram. Continue IV amiodarone for suppression of VT. Correct electrolytes. <IVANNA SALES - Last Filed: 11/29/18 13:00> Medications and Allergies Active Meds: Active Medications Acetaminophen (Tylenol) 650 mg PO Q4H PRN PRN Reason: Pain MILD(1-3)/Fever >100.5/TURPIN Amitriptyline HCl (Elavil) 25 mg PO HS [facility] Aspirin (Baby Aspirin) 81 mg PO QDAY [facility] Last Admin: 11/29/18 12:18 Dose: 81 mg Documented by: Dextrose (D50w (25gm) Syringe) 0 ml IV PRN PRN PRN Reason: Hypoglycemia Fluticasone Propionate (Flonase) 50 mcg NS BID [facility] Last Admin: 11/29/18 12:20 Dose: 50 mcg Documented by: Hydralazine HCl (Apresoline) 10 mg IV Q6HR PRN PRN Reason: Blood Pressure Insulin Human Regular 100 (units/ Sodium Chloride) 100 mls @ 1 mls/hr IV TITR [facility]; Protocol Last Titration: 11/28/18 22:42 Dose: 0 units/hr, 0 mls/hr Documented by: Amiodarone HCl 900 mg/ (Dextrose) 500 mls @ 33.333 mls/hr IV DIRECT [facility]; Protocol Last Admin: 11/28/18 15:20 Dose: 1 mg/min, 33.333 mls/hr Documented by: Argatroban 250 mg/ Sodium (Chloride) 250 mls @ 3.682 mls/hr IV TITR [facility]; Protocol Insulin Human Isoph/Insulin Regular (Humulin 70/30) 10 unit SUB-Q BIDDIAB [facility] Last Admin: 11/29/18 12:30 Dose: 10 unit Documented by: Insulin Human Lispro (Humalog) 0 unit SUB-Q ACHS [facility]; Protocol Last Admin: 11/29/18 12:19 Dose: 3 unit Documented by: Montelukast Sodium (Singulair) 10 mg PO QPM [facility] Morphine Sulfate (Morphine) 2 mg IV Q4H PRN PRN Reason: Pain, Moderate (4-6) Nitroglycerin (Nitro-Bid 2%) 0.75 inch TP QIDNTG [facility]; Protocol Ondansetron HCl (Zofran) 4 mg IV Q8H PRN PRN Reason: Nausea And Vomiting Pantoprazole Sodium (Protonix) 40 mg PO QDAY [facility] Last Admin: 11/29/18 12:18 Dose: 40 mg Documented by: Pentoxifylline (Trental) 400 mg PO Q12HR [facility] Prednisone (Deltasone) 50 mg PO QDAY [facility] Last Admin: 11/29/18 12:19 Dose: 50 mg Documented by: Sodium Chloride (Sodium Chloride Flush Syringe 10 Ml) 10 ml IV BID [facility] Last Admin: 11/29/18 04:30 Dose: Not Given Documented by: Sodium Chloride (Sodium Chloride Flush Syringe 10 Ml) 10 ml IV PRN PRN PRN Reason: LINE FLUSH Physical Examination Vital Signs Temp Pulse Resp BP Pulse Ox 98.0 F 92 H 26 H 149/93 93 11/27/18 23:40 11/27/18 23:40 11/27/18 23:40 11/27/18 23:40 11/27/18 23:40 Results 11/29/18 05:55 11/29/18 11:00 Cardiac Enzymes 11/29/18 11/29/18 Range/Units 05:55 09:08 AST TNR 351 H CBC 11/29/18 Range/Units 05:55 WBC 29.7 H (4.5-11.0) K/mm3 RBC 5.93 H (3.65-5.03) M/mm3 Hgb 16.6 H (10.1-14.3) gm/dl Hct 51.0 H (30.3-42.9) % Plt Count 213 (140-440) K/mm3 Comprehensive Metabolic Panel 11/28/18 11/28/18 11/29/18 Range/Units 15:14 17:17 05:55 Sodium 151 H 151 H TNR (137-145) mmol/L Potassium 4.3 D 4.5 TNR (3.6-5.0) mmol/L Chloride 112.4 H 112.9 H TNR (98-107) mmol/L Carbon Dioxide 21 L D 21 L TNR (22-30) mmol/L BUN 14 14 TNR (7-17) mg/dL Creatinine 1.1 1.1 TNR (0.7-1.2) mg/dL Glucose 167 H 265 H TNR (65-100) mg/dL Calcium 9.0 8.8 TNR (8.4-10.2) mg/dL AST TNR ALT TNR Alkaline Phosphatase TNR Total Protein TNR Albumin TNR 11/29/18 11/29/18 Range/Units 09:08 11:00 Sodium 152 H 155 H (137-145) mmol/L Potassium 5.4 H 5.8 H (3.6-5.0) mmol/L Chloride 110.6 H 110.1 H (98-107) mmol/L Carbon Dioxide 20 L 15 L (22-30) mmol/L BUN 20 H 21 H (7-17) mg/dL Creatinine 1.6 H 1.4 H (0.7-1.2) mg/dL Glucose 237 H 204 H (65-100) mg/dL Calcium 9.1 9.1 (8.4-10.2) mg/dL AST 351 H ALT 123 H 125 H Alkaline Phosphatase 222 H 227 H Total Protein 6.7 6.7 Albumin 3.5 L 3.4 L Assessment and Plan I've seen and evaluated the patient agree with the assessment and plan. Yesterday this patient was brought to the hospital via EMS. The patient was found to have hyperosmolar hyperglycemic state with newly diagnosed diabetes mellitus possibly secondary to use of cortical steroid-dependent for treatment o f systemic sclerosis and interstitial lung disease. The patient has a known history of systemic sclerosis, sleep apnea on CPAP, interstitial lung disease, hypertension, nonischemic cardiomyopathy and chronic systolic heart failure with an ejection fraction of 20-25% status post ICD placement. Yesterday the patient had multiple shocks from her ICD for runs of ventricular tachycardia. The patient was started on amiodarone. Patient's electrolytes which have been arranged are being corrected. At this time we'll continue current medical therapy with plans to change amiodarone to by mouth patient's electrolyte derangements and other medical issues are improved.
--- NOTE | 2018-11-29 10:37 | Consultation ---
History of Present Illness - Reason for Consult Consult date: 11/29/18 - History of Present Illness 38-year-old -[place] female with history of hypertension and non- ischemic cardiomyopathy who was brought to the ED via EMS on account of generalized weakness. Of note, history could not be obtained from the patient because she was confused. So, history was obtained from her fiance who was at the bedside. He reported that for the past 2 days, the patient has been having nausea with vomiting times multiple episodes, generalized weakness and poor oral intake. Today, he noticed some bluish discoloration of her feet which prompted him to call 911. No reported history of chest pain, shortness of breath, abdominal pain or diarrhea. No known prior history of diabetes. Vascular consultation for cyanotic extremities. Patient reports she has a history of scleroderma and she has been transitioned from prednisone to CellCept recently and that when she started taking CellCept 2 weeks ago she began to have cyanotic extremities. Cyanosis of her feet (predominantly for foot, some of the hindfoot) partially reverses with warming, but there is still residual cyanosis of her toes, she has full motor and sensory function. The pain improves with warming. She does not have palpable pedal pulses. The left middle finger distal phalanx and nail bed has cyanotic discoloration which does not reverse with warming, but the pain partially improves with warning. She has full motor and sensory function. Nonpalpable left radial and ulnar pulse. Past History Past Medical History: arthritis, GERD, hypertension, other (non-ischemic cardiomyopathy status post AICD placement) Past Surgical History: Other (cholecystectomy, AICD placement, back surgery) Social history: no significant social history (no reported history of tobacco, alcohol or illicit drug use) Family history: other (could not be obtained due to altered mental status) Medications and Allergies Allergies Allergy/AdvReac Type Severity Reaction Status Date / Time lisinopril AdvReac Severe SORE Verified 12/17/13 19:00 THROAT;PERSISTENT COUGH Home Medications Medication Instructions Recorded Confirmed Last Taken Type Aspirin [Aspirin BABY CHEW TAB] 81 mg PO QDAY 11/28/18 11/29/18 11/26/18 History Fluticasone [Flonase] 1 spray NS BID 11/28/18 11/28/18 Unknown History Furosemide [Lasix TAB] 40 mg PO BID 11/28/18 11/28/18 Unknown History Ibuprofen [Motrin] 600 mg PO Q6H PRN 11/28/18 11/28/18 Unknown History Montelukast [Singulair] 10 mg PO QPM 11/28/18 11/28/18 Unknown History Mycophenolate [Cellcept] 500 mg PO BID 11/28/18 11/28/18 Unknown History Mycophenolate [Cellcept] 500 mg PO BID PRN MDD 2 TABS 11/28/18 11/28/18 Unknown History Pantoprazole [Protonix] 40 mg PO QDAY 11/28/18 11/28/18 Unknown History Sacubitril/Valsartan [Entresto 1 each PO BID 11/28/18 11/28/18 Unknown History 49-51 mg] predniSONE [Deltasone] 50 mg PO QDAY 11/28/18 11/28/18 Unknown History raNITIdine HCl [Zantac] 150 mg PO BID 11/28/18 11/28/18 Unknown History Amitriptyline [Elavil] 25 mg PO HS 11/29/18 11/29/18 11/26/18 History Aspirin [Adult Aspirin] 81 mg PO ONCE 11/29/18 11/29/18 11/26/18 History Entresto 49-51 mg 49 mg PO BID 11/29/18 11/29/18 11/26/18 History HYDROcodone/APAP 5-325 5 mg PO Q6HR PRN 11/29/18 11/29/18 Unknown History Active Meds: Active Medications Acetaminophen (Tylenol) 650 mg PO Q4H PRN PRN Reason: Pain MILD(1-3)/Fever >100.5/TURPIN Amitriptyline HCl (Elavil) 25 mg PO HS [facility] Aspirin (Baby Aspirin) 81 mg PO QDAY [facility] Dextrose (D50w (25gm) Syringe) 0 ml IV PRN PRN PRN Reason: Hypoglycemia Fluticasone Propionate (Flonase) 50 mcg NS BID [facility] Heparin Sodium (Porcine) (Heparin) 5,000 unit SUB-Q Q8HR [facility] Last Admin: 11/29/18 08:53 Dose: Not Given Documented by: Hydralazine HCl (Apresoline) 10 mg IV Q6HR PRN PRN Reason: Blood Pressure Insulin Human Regular 100 (units/ Sodium Chloride) 100 mls @ 1 mls/hr IV TITR [facility]; Protocol Last Titration: 11/28/18 22:42 Dose: 0 units/hr, 0 mls/hr Documented by: Amiodarone HCl 900 mg/ (Dextrose) 500 mls @ 33.333 mls/hr IV DIRECT [facility]; Protocol Last Admin: 11/28/18 15:20 Dose: 1 mg/min, 33.333 mls/hr Documented by: Insulin Human Isoph/Insulin Regular (Humulin 70/30) 10 unit SUB-Q BIDDIAB [facility] Montelukast Sodium (Singulair) 10 mg PO QPM [facility] Morphine Sulfate (Morphine) 2 mg IV Q4H PRN PRN Reason: Pain, Moderate (4-6) Ondansetron HCl (Zofran) 4 mg IV Q8H PRN PRN Reason: Nausea And Vomiting Pantoprazole Sodium (Protonix) 40 mg PO QDAY [facility] Prednisone (Deltasone) 50 mg PO QDAY [facility] Sodium Chloride (Sodium Chloride Flush Syringe 10 Ml) 10 ml IV BID [facility] Last Admin: 11/29/18 04:30 Dose: Not Given Documented by: Sodium Chloride (Sodium Chloride Flush Syringe 10 Ml) 10 ml IV PRN PRN PRN Reason: LINE FLUSH Review of Systems All systems: negative (see HPI) Exam - Constitutional Vitals: Temp Pulse Resp BP Pulse Ox 97.6 F 90 20 151/51 100 11/29/18 07:41 11/29/18 07:41 11/29/18 07:41 11/29/18 07:41 11/29/18 08:14 General appearance: Present: no acute distress - EENT Eyes: Present: EOM intact ENT: hearing intact - Respiratory Respiratory effort: labored - Extremities Extremities: abnormal (see HPI) - Psychiatric Psychiatric: appropriate mood/affect, cooperative Results - Labs CBC & Chem 7: 11/29/18 05:55 11/29/18 09:08 Labs: Abnormal lab results 11/28/18 11/28/18 11/28/18 Range/Units 10:33 12:52 14:11 WBC (4.5-11.0) K/mm3 RBC (3.65-5.03) M/mm3 Hgb (10.1-14.3) gm/dl Hct (30.3-42.9) % RDW (13.2-15.2) % Seg Neuts % (Manual) (40.0-70.0) % Lymphocytes % (Manual) (13.4-35.0) % Seg Neutrophils # Man (1.8-7.7) K/mm3 Monocytes # (Manual) (0.0-0.8) K/mm3 Sodium (137-145) mmol/L Potassium (3.6-5.0) mmol/L Chloride (98-107) mmol/L Carbon Dioxide (22-30) mmol/L BUN (7-17) mg/dL Creatinine (0.7-1.2) mg/dL Glucose (65-100) mg/dL POC Glucose 411 H 204 H 119 H (70-105) Lactic Acid (0.7-2.0) mmol/L Total Bilirubin (0.1-1.2) mg/dL AST (5-40) units/L ALT (7-56) units/L Alkaline Phosphatase (35-129) units/L Albumin (3.9-5) g/dL 11/28/18 11/28/18 11/28/18 Range/Units 14:15 15:14 15:14 WBC (4.5-11.0) K/mm3 RBC (3.65-5.03) M/mm3 Hgb (10.1-14.3) gm/dl Hct (30.3-42.9) % RDW (13.2-15.2) % Seg Neuts % (Manual) (40.0-70.0) % Lymphocytes % (Manual) (13.4-35.0) % Seg Neutrophils # Man (1.8-7.7) K/mm3 Monocytes # (Manual) (0.0-0.8) K/mm3 Sodium 151 H (137-145) mmol/L Potassium (3.6-5.0) mmol/L Chloride 112.4 H (98-107) mmol/L Carbon Dioxide 21 L D (22-30) mmol/L BUN (7-17) mg/dL Creatinine (0.7-1.2) mg/dL Glucose 167 H (65-100) mg/dL POC Glucose (70-105) Lactic Acid 4.80 H* 5.00 H* (0.7-2.0) mmol/L Total Bilirubin (0.1-1.2) mg/dL AST (5-40) units/L ALT (7-56) units/L Alkaline Phosphatase (35-129) units/L Albumin (3.9-5) g/dL 11/28/18 11/28/18 11/28/18 Range/Units 15:22 16:22 17:11 WBC (4.5-11.0) K/mm3 RBC (3.65-5.03) M/mm3 Hgb (10.1-14.3) gm/dl Hct (30.3-42.9) % RDW (13.2-15.2) % Seg Neuts % (Manual) (40.0-70.0) % Lymphocytes % (Manual) (13.4-35.0) % Seg Neutrophils # Man (1.8-7.7) K/mm3 Monocytes # (Manual) (0.0-0.8) K/mm3 Sodium (137-145) mmol/L Potassium (3.6-5.0) mmol/L Chloride (98-107) mmol/L Carbon Dioxide (22-30) mmol/L BUN (7-17) mg/dL Creatinine (0.7-1.2) mg/dL Glucose (65-100) mg/dL POC Glucose 114 H 120 H 183 H (70-105) Lactic Acid (0.7-2.0) mmol/L Total Bilirubin (0.1-1.2) mg/dL AST (5-40) units/L ALT (7-56) units/L Alkaline Phosphatase (35-129) units/L Albumin (3.9-5) g/dL 11/28/18 11/28/18 11/28/18 Range/Units 17:17 18:18 19:26 WBC (4.5-11.0) K/mm3 RBC (3.65-5.03) M/mm3 Hgb (10.1-14.3) gm/dl Hct (30.3-42.9) % RDW (13.2-15.2) % Seg Neuts % (Manual) (40.0-70.0) % Lymphocytes % (Manual) (13.4-35.0) % Seg Neutrophils # Man (1.8-7.7) K/mm3 Monocytes # (Manual) (0.0-0.8) K/mm3 Sodium 151 H (137-145) mmol/L Potassium (3.6-5.0) mmol/L Chloride 112.9 H (98-107) mmol/L Carbon Dioxide 21 L (22-30) mmol/L BUN (7-17) mg/dL Creatinine (0.7-1.2) mg/dL Glucose 265 H (65-100) mg/dL POC Glucose 269 H 243 H (70-105) Lactic Acid (0.7-2.0) mmol/L Total Bilirubin (0.1-1.2) mg/dL AST (5-40) units/L ALT (7-56) units/L Alkaline Phosphatase (35-129) units/L Albumin (3.9-5) g/dL 11/28/18 11/28/18 11/29/18 Range/Units 20:45 21:44 05:55 WBC 29.7 H (4.5-11.0) K/mm3 RBC 5.93 H (3.65-5.03) M/mm3 Hgb 16.6 H (10.1-14.3) gm/dl Hct 51.0 H (30.3-42.9) % RDW 19.7 H (13.2-15.2) % Seg Neuts % (Manual) 93.0 H (40.0-70.0) % Lymphocytes % (Manual) 4.0 L (13.4-35.0) % Seg Neutrophils # Man 27.6 H (1.8-7.7) K/mm3 Monocytes # (Manual) 0.9 H (0.0-0.8) K/mm3 Sodium (137-145) mmol/L Potassium (3.6-5.0) mmol/L Chloride (98-107) mmol/L Carbon Dioxide (22-30) mmol/L BUN (7-17) mg/dL Creatinine (0.7-1.2) mg/dL Glucose (65-100) mg/dL POC Glucose 177 H 124 H (70-105) Lactic Acid (0.7-2.0) mmol/L Total Bilirubin (0.1-1.2) mg/dL AST (5-40) units/L ALT (7-56) units/L Alkaline Phosphatase (35-129) units/L Albumin (3.9-5) g/dL 11/29/18 11/29/18 11/29/18 Range/Units 06:42 07:36 09:08 WBC (4.5-11.0) K/mm3 RBC (3.65-5.03) M/mm3 Hgb (10.1-14.3) gm/dl Hct (30.3-42.9) % RDW (13.2-15.2) % Seg Neuts % (Manual) (40.0-70.0) % Lymphocytes % (Manual) (13.4-35.0) % Seg Neutrophils # Man (1.8-7.7) K/mm3 Monocytes # (Manual) (0.0-0.8) K/mm3 Sodium 152 H (137-145) mmol/L Potassium 5.4 H (3.6-5.0) mmol/L Chloride 110.6 H (98-107) mmol/L Carbon Dioxide 20 L (22-30) mmol/L BUN 20 H (7-17) mg/dL Creatinine 1.6 H (0.7-1.2) mg/dL Glucose 237 H (65-100) mg/dL POC Glucose 118 H 146 H (70-105) Lactic Acid (0.7-2.0) mmol/L Total Bilirubin 3.80 H (0.1-1.2) mg/dL AST 351 H (5-40) units/L ALT 123 H (7-56) units/L Alkaline Phosphatase 222 H (35-129) units/L Albumin 3.5 L (3.9-5) g/dL Assessment and Plan 38-year-old female with scleroderma, severe cardiomyopathy with AICD and runs of V tach and V fib, and recent transition from prednisone to CellCept 2 weeks ago with development of cyanotic upper extremity left middle digit and bilateral feet (predominantly forefoot). There is definitely an element of Raynaud's disease secondary to scleroderma, but the cyanosis only partially resolves in the feet and does not improve with warming the left middle finger. There could be a superimposed arterial occlusive component given the lack of complete reversibility. Given the patient's underlying cardiac issues, she has not an optimal patient for amlodipine or nifedipine. Options include Trental and nitropaste applied to the feet and left third finger, but this may need to be removed if SBP less than 100. Differential for arterial occlusive component includes arterial thrombus from cellcept (listed as an uncommon side effect), cardioembolic source of thrombus, heparin-induced thrombocytopenia (platelets have dropped since yesterday). Recommend cardiology consult for echo to exclude cardioembolic source. Arterial doppler results pending. Unable to obtain CTA at this time due to elevated creatinine. Recommend heme/onc consult for HIT panel and to place patient on Agatroban in the interim. Arterial doppler suggests aortoiliac severe disease, which could be thrombus, and left dorsalis pedis occlusion. The left upper extremity also has monophasic waveforms. This could possibly be all due to severe spasm, but thrombus is in the differential. Will continue to follow.
--- NOTE | 2018-11-29 10:51 | Progress Note ---
Assessment and Plan Assessment and plan: Hyperosmolar hyperglycemic state (HHS) in a newly diagnosed Diabetes-new onset -Patient was admitted to the ICU on insulin drip, now off Insulin drip -Continue serial BMP level monitoring -Start Novolin 70/30 Diabetes mellitus type 2-new onset Acute respiratory failure with hypoxia -Continue oxygen supplementation as needed Poss sepsis -CT abd/pelvis showed generalized bronchiectasis -Blood cultures pending Vtach s/p shocked 8 tiemes by AICD, as per interrogation, notes in paper chart Amiodarome cardiology following Bluish discoloratoion toes, fore foot consulted Vasc Surgery, discussed with Dr. Hernandez Cnsulted Dr. Li, discussed with him Started on Argatroban There is concern for HIT - labs ordered Acute metabolic encephalopathy -Head CT scan negative -We'll monitor clinically Elevated troponin -Probably secondary to demand ischemia due to acute process -We'll continue serial troponin and EKG monitoring EDGARDO -Probably vasomotor nephropathy due to dehydration -On IV fluid, will monitor creatinine level Consult Nephrology Electrolyte abnormalities (hyperkalemia and hypermagnesemia) -We will hydrate patient and monitor levels Abnormal LFT -Probably due to acute process -CT abd/pelvis negative for liver pathology -We'll monitor levels Hypertension -Stable -On when necessary hydralazine Cardiomyopathy with EF of 20-25% -Status post AICD placement -No acute exacerbation GERD -On famotidine DVT prophylaxis with heparin Partient has systemic sclerosis, sees a Table Maker Was on Cellcept, but I did not resume because it may cause thrombosis Full code status The high probability of a clinically significant, sudden or life threatening deterioration of the [4] system(s) required my full and direct attention, intervention and personal management. The aggregate critical care time was [38] minutes. This time is in addition to time spent performing reported procedures but includes the following: [x] Data Review and interpretation [x] Patient assessment and monitoring of vital signs [x] Documentation [x] Medication orders and management History Interval history: Dark toes for few days dark left middle finger Hospitalist Physical - Physical exam Narrative exam: Gen: Not in acute distress, lying in bed,obese HEENT: Normocephalic, atraumatic Neck: supple, no JVD Heart: S1 and S2 irreg, no murmurs, rubs or gallop Lungs: Clear to auscultation, no crackles, no rhonchi Abd: soft, non tender, non distended, normal BS, Ext: bluish discoloration toes both feet, bluish coloration left middle finger Neuro: Awake,alert, Oriented X 3. No focal neurological signs Psych: normal mood - Constitutional Vitals: Temp Pulse Resp BP Pulse Ox 97.6 F 90 20 151/51 100 11/29/18 07:41 11/29/18 07:41 11/29/18 07:41 11/29/18 07:41 11/29/18 08:14 General appearance: Present: no acute distress Results - Labs CBC & Chem 7: 11/29/18 05:55 11/29/18 16:46 Labs: Laboratory Last Values WBC 29.7 K/mm3 (4.5-11.0) H 11/29/18 05:55 RBC 5.93 M/mm3 (3.65-5.03) H 11/29/18 05:55 Hgb 16.6 gm/dl (10.1-14.3) H 11/29/18 05:55 Hct 51.0 % (30.3-42.9) H 11/29/18 05:55 MCV 86 fl (79-97) 11/29/18 05:55 MCH 28 pg (28-32) 11/29/18 05:55 MCHC 33 % (30-34) 11/29/18 05:55 RDW 19.7 % (13.2-15.2) H 11/29/18 05:55 Plt Count 213 K/mm3 (140-440) 11/29/18 05:55 Lymph % (Auto) 6.3 % (13.4-35.0) L 11/28/18 01:01 [place] % (Auto) 6.1 % (0.0-7.3) 11/28/18 01:01 Eos % (Auto) 0.0 % (0.0-4.3) 11/28/18 01:01 Baso % (Auto) 0.4 % (0.0-1.8) 11/28/18 01:01 Lymph # 0.9 K/mm3 (1.2-5.4) L 11/28/18 01:01 [place] # 0.9 K/mm3 (0.0-0.8) H 11/28/18 01:01 Eos # 0.0 K/mm3 (0.0-0.4) 11/28/18 01:01 Baso # 0.1 K/mm3 (0.0-0.1) 11/28/18 01:01 Add Manual Diff Complete 11/29/18 05:55 Total Counted 100 11/29/18 05:55 Seg Neutrophils % 87.2 % (40.0-70.0) H 11/28/18 01:01 Seg Neuts % (Manual) 93.0 % (40.0-70.0) H 11/29/18 05:55 0 % 11/29/18 05:55 4.0 % (13.4-35.0) L 11/29/18 05:55 Reactive Lymphs % (Man) 0 % 11/29/18 05:55 3.0 % (0.0-7.3) 11/29/18 05:55 0 % (0.0-4.3) 11/29/18 05:55 0 % (0.0-1.8) 11/29/18 05:55 0 % 11/29/18 05:55 0 % 11/29/18 05:55 0 % 11/29/18 05:55 0 % 11/29/18 05:55 Nucleated RBC % Not Reportable 11/29/18 05:55 Seg Neutrophils # 13.2 K/mm3 (1.8-7.7) H 11/28/18 01:01 Seg Neutrophils # Man 27.6 K/mm3 (1.8-7.7) H 11/29/18 05:55 Band Neutrophils # 0.0 K/mm3 11/29/18 05:55 1.2 K/mm3 (1.2-5.4) 11/29/18 05:55 Abs React Lymphs (Man) 0.0 K/mm3 11/29/18 05:55 0.9 K/mm3 (0.0-0.8) H 11/29/18 05:55 0.0 K/mm3 (0.0-0.4) 11/29/18 05:55 0.0 K/mm3 (0.0-0.1) 11/29/18 05:55 0.0 K/mm3 11/29/18 05:55 0.0 K/mm3 11/29/18 05:55 0.0 K/mm3 11/29/18 05:55 Blast Cells # 0.0 K/mm3 11/29/18 05:55 WBC Morphology Not Reportable 11/29/18 05:55 Hypersegmented Neuts Not Reportable 11/29/18 05:55 Hyposegmented Neuts Not Reportable 11/29/18 05:55 Hypogranular Neuts Not Reportable 11/29/18 05:55 Not Reportable 11/29/18 05:55 Not Reportable 11/29/18 05:55 Not Reportable 11/29/18 05:55 Not Reportable 11/29/18 05:55 Not Reportable 11/29/18 05:55 Not Reportable 11/29/18 05:55 Consistent w auto 11/29/18 05:55 Not Reportable 11/29/18 05:55 Plt Clumps, EDTA Not Reportable 11/29/18 05:55 Not Reportable 11/29/18 05:55 Not Reportable 11/29/18 05:55 Not Reportable 11/29/18 05:55 Plt Morphology Comment Not Reportable 11/29/18 05:55 RBC Morphology Normal 11/29/18 05:55 Dimorphic RBCs Not Reportable 11/29/18 05:55 Not Reportable 11/29/18 05:55 Not Reportable 11/29/18 05:55 Not Reportable 11/29/18 05:55 Not Reportable 11/29/18 05:55 Not Reportable 11/29/18 05:55 Not Reportable 11/29/18 05:55 Not Reportable 11/29/18 05:55 Not Reportable 11/29/18 05:55 Not Reportable 11/29/18 05:55 Not Reportable 11/29/18 05:55 Not Reportable 11/29/18 05:55 Not Reportable 11/29/18 05:55 Not Reportable 11/29/18 05:55 Not Reportable 11/29/18 05:55 Not Reportable 11/29/18 05:55 Not Reportable 11/29/18 05:55 Not Reportable 11/29/18 05:55 Not Reportable 11/29/18 05:55 Not Reportable 11/29/18 05:55 Acanthocytes (Spur) Not Reportable 11/29/18 05:55 Rouleaux Not Reportable 11/29/18 05:55 Not Reportable 11/29/18 05:55 Not Reportable 11/29/18 05:55 Not Reportable 11/29/18 05:55 Not Reportable 11/29/18 05:55 Hem Pathologist Commnt No 11/29/18 05:55 PT 15.6 Sec. (12.2-14.9) H 11/28/18 01:01 INR 1.27 (0.87-1.13) H 11/28/18 01:01 APTT 25.1 Sec. (24.2-36.6) 11/28/18 01:01 ABG pH 7.414 pH Units (7.350-7.450) 11/28/18 01:01 ABG pCO2 48.8 mm Hg 11/28/18 01:01 ABG pO2 65.7 mm Hg (80.0-90.0) L 11/28/18 01:01 ABG HCO3 30.5 mmol/L (20.0-26.0) H 11/28/18 01:01 ABG O2 Saturation 91.3 % (95.0-99.0) L 11/28/18 01:01 ABG O2 Content 22.2 (0.0-44) 11/28/18 01:01 ABG Base Excess 4.6 mmol/L (-2.0-3.0) H 11/28/18 01:01 ABG Hemoglobin 18.0 gm/dl (12.0-16.0) H 11/28/18 01:01 ABG Carboxyhemoglobin 3.1 % (0.0-5.0) 11/28/18 01:01 ABG Methemoglobin 0.5 % (0.0-1.5) 11/28/18 01:01 VBG pH 7.414 (7.320-7.420) 11/28/18 01:01 88.0 % (95.0-99.0) L 11/28/18 01:01 21 % 11/28/18 01:01 Sodium 152 mmol/L (137-145) H 11/29/18 09:08 Potassium 5.4 mmol/L (3.6-5.0) H 11/29/18 09:08 Chloride 110.6 mmol/L (98-107) H 11/29/18 09:08 Carbon Dioxide 20 mmol/L (22-30) L 11/29/18 09:08 27 mmol/L 11/29/18 09:08 BUN 20 mg/dL (7-17) H 11/29/18 09:08 1.6 mg/dL (0.7-1.2) H 11/29/18 09:08 Estimated GFR 44 ml/min 11/29/18 09:08 13 % 11/29/18 09:08 Glucose 237 mg/dL (65-100) H 11/29/18 09:08 POC Glucose 146 (70-105) H 11/29/18 07:36 12.5 % (4-6) H 11/28/18 01:01 Lactic Acid 5.00 mmol/L (0.7-2.0) H* 11/28/18 15:14 Calcium 9.1 mg/dL (8.4-10.2) 11/29/18 09:08 Phosphorus 4.70 mg/dL (2.5-4.5) H 11/28/18 03:17 Magnesium 3.70 mg/dL (1.7-2.3) H 11/28/18 03:17 3.80 mg/dL (0.1-1.2) H 11/29/18 09:08 1.3 mg/dL (0-0.2) H 11/28/18 01:01 1.1 mg/dL 11/28/18 01:01 AST 351 units/L (5-40) H 11/29/18 09:08 ALT 123 units/L (7-56) H 11/29/18 09:08 222 units/L (35-129) H 11/29/18 09:08 30.0 umol/L (25-60) 11/28/18 01:01 228 units/L (30-135) H 11/28/18 01:01 0.030 ng/mL (0.00-0.029) H D 11/28/18 07:50 6.7 g/dL (6.3-8.2) 11/29/18 09:08 3.5 g/dL (3.9-5) L 11/29/18 09:08 1.1 % 11/29/18 09:08 Triglycerides 356 mg/dL (2-149) H 11/28/18 01:01 Cholesterol 200 mg/dL (50-199) H 11/28/18 01:01 125 mg/dL (50-130) 11/28/18 01:01 39 mg/dL (40-59) L 11/28/18 01:01 5.12 % 11/28/18 01:01 TSH 0.288 mlU/mL (0.270-4.200) 11/28/18 01:01 HCG, Quant < 2 mIU/mL (0-4) 11/28/18 01:01 Straw (Yellow) 11/28/18 00:37 Clear (Clear) 11/28/18 00:37 7.0 (5.0-7.0) 11/28/18 00:37 Ur Specific [place] 1.023 (1.003-1.030) 11/28/18 00:37 30 mg/dl mg/dL (Negative) 11/28/18 00:37 >=500 mg/dL (Negative) 11/28/18 00:37 Tr mg/dL (Negative) 11/28/18 00:37 Sm (Negative) 11/28/18 00:37 Neg (Negative) 11/28/18 00:37 Neg (Negative) 11/28/18 00:37 < 2.0 mg/dL (<2.0) 18 00:37 Ur Leukocyte Esterase Neg (Negative) 11/28/18 00:37 < 1.0 /HPF (0.0-6.0) 11/28/18 00:37 1.0 /HPF (0.0-6.0) 11/28/18 00:37 Urine HCG, Qual Negative (Negative) 11/28/18 Unknown Salicylates < 0.3 mg/dL (2.8-20.0) L 11/28/18 01:01 Presumptive negative 11/28/18 00:37 Presumptive negative 11/28/18 00:37 Acetaminophen < 5.0 ug/mL (10.0-30.0) L 11/28/18 01:01 Ur Barbiturates Screen Presumptive negative 11/28/18 00:37 Ur Phencyclidine Scrn Presumptive negative 11/28/18 00:37 Ur Amphetamines Screen Presumptive negative 11/28/18 00:37 U Benzodiazepines Scrn Presumptive negative 11/28/18 00:37 Presumptive negative 11/28/18 00:37 U Marijuana (THC) Screen Presumptive negative 11/28/18 00:37 Disclamer 11/28/18 00:37 Plasma/Serum Alcohol < 0.01 % (0-0.07) 11/28/18 01:01 Blood Type B POSITIVE 11/28/18 01:01 Antibody Screen Negative 11/28/18 01:01 Active Medications - Current Medications Current Medications: Generic Name Dose Route Start Last Admin Trade Name Freq PRN Reason Stop Dose Admin Acetaminophen 650 mg 11/28/18 03:02 Tylenol PO Q4H PRN Pain MILD(1-3)/Fever >100.5/TURPIN Amitriptyline HCl 25 mg 11/29/18 22:00 Elavil PO HS VIOAL Aspirin 81 mg 11/29/18 10:00 Baby Aspirin PO QDAY VIOLA Dextrose 0 ml 11/28/18 02:19 D50w (25gm) Syringe IV PRN PRN Hypoglycemia Fluticasone Propionate 50 mcg 11/29/18 10:00 Flonase NS BID VIOLA Heparin Sodium (Porcine) 5,000 unit 11/28/18 06:00 11/29/18 08:53 Heparin SUB-Q Not Given Q8HR [facility] Hydralazine HCl 10 mg 11/28/18 03:41 Apresoline IV Q6HR PRN Blood Pressure Insulin Human Regular 100 100 mls @ 1 mls/hr 11/28/18 03:00 11/28/18 22:42 units/ Sodium Chloride IV 0 units/hr TITR VIOLA 0 mls/hr Titration Protocol 1 UNITS/HR Amiodarone HCl 900 mg/ 500 mls @ 33.333 mls/hr 11/28/18 15:00 11/28/18 15:20 Dextrose IV 1 mg/min DIRECT VIOLA 33.333 mls/hr Administration Protocol 1 MG/MIN Insulin Human Isoph/Insulin Regular 10 unit 11/29/18 11:00 Humulin 70/30 SUB-Q BIDDIAB VIOLA Insulin Human Lispro 0 unit 11/29/18 11:30 Humalog SUB-Q ACHS VIOLA Protocol Montelukast Sodium 10 mg 11/29/18 18:00 Singulair PO QPM VIOLA Morphine Sulfate 2 mg 11/28/18 03:02 Morphine IV Q4H PRN Pain, Moderate (4-6) Ondansetron HCl 4 mg 11/28/18 03:02 Zofran IV Q8H PRN Nausea And Vomiting Pantoprazole Sodium 40 mg 11/29/18 10:00 Protonix PO QDAY VIOLA Prednisone 50 mg 11/29/18 10:00 Deltasone PO QDAY [facility] Sodium Chloride 10 ml 11/28/18 10:00 11/29/18 04:30 Sodium Chloride Flush Syringe 10 Ml IV Not Given BID VIOLA Sodium Chloride 10 ml 11/28/18 03:02 Sodium Chloride Flush Syringe 10 Ml IV PRN PRN LINE FLUSH
--- NOTE | 2018-11-29 11:29 | Consultation ---
History of Present Illness - Reason for Consult Consult date: 11/29/18 acute renal failure Requesting physician: IVANNA RHODES - History of Present Illness LDH only 80 with a history of scleroderma, hypertension and GERD was admitted on account of weakness, skin discoloration, lethargy with nausea and vomiting of a couple of days duration. Patient was really not able to give much of the history on presentation due to alteration in mental status. By time I saw her her mental status was better and she stated "I was so tired and weak and did not take my medications". Patient was started on prednisone for scleroderma and was being transitioned to CellCept by a Hand Glove Cleaner at [place]. She was started on prednisone 60 mg and was down to 30 mg. She was not checking her blood sugar as she is not a diabetic. Patient was brought in because of the above symptoms and her blood sugar was >1000mg/dl with potassium of 5.9 mmol per liter and sodium high at 151 mmol per liter. Patient had multiple runs of ventricular tachycardia and was seen by automated access systems technician and ICD interrogation showed she had been appropriately shocked a number of times, the previous day because of multiple episodes of ventricular tachycardia. She is now on amiodarone drip. BUN and creatinine which were 14/1.1 mg/dL on presentation have increased to 22/1.4 mg/dL. I am consulted to assist with managing her renal failure and electrolyte abnormalities Past History Past Medical History: arthritis, GERD, hypertension, other (non-ischemic ca rdiomyopathy status post AICD placement) Past Surgical History: Other (cholecystectomy, AICD placement, back surgery) Social history: no significant social history (no reported history of tobacco, alcohol or illicit drug use) Family history: other (could not be obtained due to altered mental status) Medications and Allergies Allergies Allergy/AdvReac Type Severity Reaction Status Date / Time lisinopril AdvReac Severe SORE Verified 12/17/13 19:00 THROAT;PERSISTENT COUGH Home Medications Medication Instructions Recorded Confirmed Last Taken Type Aspirin [Aspirin BABY CHEW TAB] 81 mg PO QDAY 11/28/18 11/29/18 11/26/18 History Fluticasone [Flonase] 1 spray NS BID 11/28/18 11/28/18 Unknown History Furosemide [Lasix TAB] 40 mg PO BID 11/28/18 11/28/18 Unknown History Ibuprofen [Motrin] 600 mg PO Q6H PRN 11/28/18 11/28/18 Unknown History Montelukast [Singulair] 10 mg PO QPM 11/28/18 11/28/18 Unknown History Mycophenolate [Cellcept] 500 mg PO BID 11/28/18 11/28/18 Unknown History Mycophenolate [Cellcept] 500 mg PO BID PRN MDD 2 TABS 11/28/18 11/28/18 Unknown History Pantoprazole [Protonix] 40 mg PO QDAY 11/28/18 11/28/18 Unknown History Sacubitril/Valsartan [Entresto 1 each PO BID 11/28/18 11/28/18 Unknown History 49-51 mg] predniSONE [Deltasone] 50 mg PO QDAY 11/28/18 11/28/18 Unknown History raNITIdine HCl [Zantac] 150 mg PO BID 11/28/18 11/28/18 Unknown History Amitriptyline [Elavil] 25 mg PO HS 11/29/18 11/29/18 11/26/18 History Aspirin [Adult Aspirin] 81 mg PO ONCE 11/29/18 11/29/18 11/26/18 History Entresto 49-51 mg 49 mg PO BID 11/29/18 11/29/18 11/26/18 History HYDROcodone/APAP 5-325 5 mg PO Q6HR PRN 11/29/18 11/29/18 Unknown History Active Meds: Active Medications Acetaminophen (Tylenol) 650 mg PO Q4H PRN PRN Reason: Pain MILD(1-3)/Fever >100.5/TURPIN Amitriptyline HCl (Elavil) 25 mg PO HS [facility] Aspirin (Baby Aspirin) 81 mg PO QDAY [facility] Dextrose (D50w (25gm) Syringe) 0 ml IV PRN PRN PRN Reason: Hypoglycemia Fluticasone Propionate (Flonase) 50 mcg NS BID [facility] Heparin Sodium (Porcine) (Heparin) 5,000 unit SUB-Q Q8HR [facility] Last Admin: 11/29/18 08:53 Dose: Not Given Documented by: Hydralazine HCl (Apresoline) 10 mg IV Q6HR PRN PRN Reason: Blood Pressure Insulin Human Regular 100 (units/ Sodium Chloride) 100 mls @ 1 mls/hr IV TITR VIOLA; Protocol Last Titration: 11/28/18 22:42 Dose: 0 units/hr, 0 mls/hr Documented by: Amiodarone HCl 900 mg/ (Dextrose) 500 mls @ 33.333 mls/hr IV DIRECT VIOLA; Protocol Last Admin: 11/28/18 15:20 Dose: 1 mg/min, 33.333 mls/hr Documented by: Insulin Human Isoph/Insulin Regular (Humulin 70/30) 10 unit SUB-Q BIDDIAB VIOLA Insulin Human Lispro (Humalog) 0 unit SUB-Q ACHS VIOLA; Protocol Montelukast Sodium (Singulair) 10 mg PO QPM VIOLA Morphine Sulfate (Morphine) 2 mg IV Q4H PRN PRN Reason: Pain, Moderate (4-6) Ondansetron HCl (Zofran) 4 mg IV Q8H PRN PRN Reason: Nausea And Vomiting Pantoprazole Sodium (Protonix) 40 mg PO QDAY VIOLA Prednisone (Deltasone) 50 mg PO QDAY VIOLA Sodium Chloride (Sodium Chloride Flush Syringe 10 Ml) 10 ml IV BID VIOLA Last Admin: 11/29/18 04:30 Dose: Not Given Documented by: Sodium Chloride (Sodium Chloride Flush Syringe 10 Ml) 10 ml IV PRN PRN PRN Reason: LINE FLUSH Review of Systems All systems: negative (as noted in history of present illness) Exam - Vital Signs Vital signs: Vital Signs Temp Pulse Resp BP Pulse Ox 98.0 F 92 H 26 H 149/93 93 11/27/18 23:40 11/27/18 23:40 11/27/18 23:40 11/27/18 23:40 11/27/18 23:40 - Physical Exam Narrative exam: Obese young -[place] female lying in bed in no acute distress HEENT: NCAT, pink oral mucous membrane Neck: Supple, no venous distention CVS: S1S2 RRR with no murmur, rub or gallop Chest: Clear to auscultation Abdomen: obese, soft, nontender, no organomegaly, bowel sounds are present Extremities: No edema, cool extremities with cyanotic toes, and cyanotic left middle distal phalanx and nail bed Neuro: Awake, alert no focal deficits Results - Lab Results 11/30/18 09:40 11/30/18 07:18 Most recent lab results ABG pH 7.414 pH Units (7.350-7.450) 11/28/18 01:01 ABG pCO2 48.8 mm Hg 11/28/18 01:01 ABG pO2 65.7 mm Hg (80.0-90.0) L 11/28/18 01:01 ABG HCO3 30.5 mmol/L (20.0-26.0) H 11/28/18 01:01 ABG O2 Saturation 91.3 % (95.0-99.0) L 11/28/18 01:01 Calcium 9.1 mg/dL (8.4-10.2) 11/29/18 09:08 Phosphorus 4.70 mg/dL (2.5-4.5) H 11/28/18 03:17 Magnesium 3.70 mg/dL (1.7-2.3) H 11/28/18 03:17 Assessment and Plan - Patient Problems (1) Acute kidney injury Current Visit: Yes Status: Acute Plan to address problem: Get urine studies. Continue volume repletion. Follow up electrolytes and renal function (2) Hyperkalemia Current Visit: Yes Status: Acute Plan to address problem: Hyperkalemia on presentation improving with medical management. Follow-up electrolytes (3) Hypernatremia Current Visit: Yes Status: Acute Plan to address problem: Hyponatremia secondary to free water losses. Replace free water and follow-up sodium (4) Hyperosmolar hyperglycemic coma due to diabetes mellitus without ketoacidosis Current Visit: Yes Status: Acute Plan to address problem: Steroid induced hyperglycemia/newly diagnosed type 2 diabetes mellitus. Blood sugar control by primary attending (5) Acrocyanosis Current Visit: Yes Status: Acute Plan to address problem: Etiology uncertain. May be related to scleroderma but definitely need to exclude thromboembolic disease especially with the lesion on the middle finger. Surgery on board and Machine Room Operator is ruling out embolic disease. Patient is on Direct Thrombin inhibitor being managed by bag valver pending HIT antibody. (6) Transaminasemia Current Visit: Yes Status: Acute Plan to address problem: Probable ischemic hepatitis. 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 Monitor for signs of volume overload with volume repletion
[2018-11-29] MEDS: BABY ASPIRIN PO SCH (12:18)
[2018-11-29] MEDS: PROTONIX PO SCH (12:18)
[2018-11-29] MEDS: DELTASONE PO SCH (12:19)
[2018-11-29] MEDS: HumaLOG SUB-Q SCH ×2 (12:19→17:42)
[2018-11-29] MEDS: ENTRESTO 49-51 MG PO SCH ×2 (12:20→21:57)
[2018-11-29] MEDS: FLONASE NS SCH ×2 (12:20→21:57)
--- NOTE | 2018-11-29 12:28 | Vascular Lab Report ---
DUPLEX DOPPLER LOWER EXTREMITY ARTERIAL, BILATERAL INDICATION: dark toes and foot. Raynauds disease TECHNIQUE: Arterial duplex examination of both lower extremities performed using B-mode, color flow and spectral Doppler assessment. FINDINGS: RIGHT: Common Femoral Artery: PSV 137 cm/sec. Monophasic waveform. Proximal SFA: PSV 98 cm/sec. Biphasic waveform. Mid SFA: PSV 108 cm/sec. Biphasic waveform. Distal SFA: PSV 98 cm/sec. Biphasic waveform. Popliteal artery: PSV 44 cm/sec. Biphasic waveform. Posterior tibial artery: PSV 14 cm/sec. Monophasic waveform. Anterior tibial artery: PSV 21 cm/s. Monophasic waveform. Dorsalis Pedis Artery: PSV 32 cm/sec. Monophasic waveform. LEFT: Common Femoral Artery: PSV 192 cm/sec. Monophasic waveform. Proximal SFA: PSV 111 cm/sec. Monophasic waveform. Mid SFA: PSV 120 cm/sec. Monophasic waveform. Distal SFA: PSV 78 cm/sec. Biphasic waveform. Popliteal artery: PSV 18 cm/sec. Monophasic waveform. Posterior tibial artery: PSV 18 cm/sec. Monophasic waveform. Anterior tibial artery: 0 cm/s. Occluded. Dorsalis Pedis Artery: PSV 0 cm/sec. Occluded IMPRESSION: Occluded left anterior tibial artery and dorsalis pedis artery. Diffuse peripheral vascular disease in both lower extremities. Doppler Waveform: * Triphasic is normal. * Biphasic is abnormal if clear transition from triphasic signal along vascular tree. * Monophasic is abnormal. Signer Name: Jaswinder Prince Jr, MD Signed: 11/29/2018 12:24 PM Workstation Name: [id number]
[2018-11-29 12:32] LABS: Albumin 3.4 g/dL (3.9-5); Calcium 9.1 mg/dL (8.4-10.2)
--- NOTE | 2018-11-29 12:48 | Vascular Lab Report ---
DUPLEX DOPPLER UPPER EXTREMITY ARTERIAL, BILATERAL INDICATION / CLINICAL INFORMATION: discoloration of lt.middle finger. TECHNIQUE: Arterial duplex examination of both upper extremities performed using B-mode, color flow and spectral Doppler assessment. FINDINGS: RIGHT: Subclavian: PSV 76 cm/s. Triphasic waveform Axillary: PSV 89 cm/sec. Triphasic waveform. Brachial: PSV 86 cm/sec. Triphasic waveform. Radial: PSV 31 cm/sec. Biphasic waveform. Ulnar: PSV 16 cm/sec. Monophasic waveform. LEFT: Subclavian: PSV 123 cm/s. Monophasic waveform Axillary: PSV 75 cm/sec. Biphasic waveform. Brachial: PSV 70 cm/sec. Biphasic waveform. Radial: PSV 37 cm/sec. Monophasic waveform. Ulnar: PSV 16 cm/sec. Monophasic waveform. IMPRESSION: 1. No occlusive disease is identified. There is evidence of distal disease in both forearms. Ankle-Brachial Index (GILBERT): - Calcified arteries > 1.4 - Normal = 0.9-1.4 - Mild PAD = 0.7-0.89 - Moderate PAD = 0.51-0.69 - Severe PAD < 0.5 Doppler Waveform: - Triphasic is normal. - Biphasic is abnormal if clear transition from triphasic signal along vascular tree. - Monophasic is abnormal. Signer Name: Jonas Colon MD Signed: 11/29/2018 12:44 PM Workstation Name: [id number]
--- NOTE | 2018-11-29 13:14 | Progress Note ---
Assessment and Plan Cultures: Blood culture 11/28/18 - NGTD Urine culture: no growth A/P: 38 yo F PMHx -related cardiomyopathy (s/p ICD) admitted with hyperglycemic hyperosmolar syndrome: 1. SIRS with leukemoid reaction - Present on admission with leukocytosis, tachycardia, tachypnea. Likely from limb ischemia. No acute signs of infection at the present time. Continue off antibiotics. 2. Hypergylcemic, hyperosmolar syndrome 3. -induced cardiomyopathy - s/p ICD. 4. Leukocytosis - Most likely secondary to limb ischemia, volume depletion and hyperosmolar state. Recs: - continue off antibiotics ID will sign off. Please call back with questions or new issues. Anabel Hawley MD, FACP [facility] ([facility]) M: [phone] O: [phone] F: [phone] Subjective Date of service: 11/29/18 Interval history: Complains of pain in bilateral lower extremities, left more than right. No fever. Objective - Exam Narrative Exam: Constitutional: Alert, cooperative. No acute distress Head, Ears, Nose: Normocephalic, atraumatic. External ears, nose normal Eyes: Conjunctivae/corneas clear. No icterus. No ptosis. Neck: Supple, no meningeal signs Oral: dentition fair, no thrush Cardiovascular: S1, S2 normal. L sided ICD in place, no tenderness Respiratory: Good air entry, clear to auscultation bilaterally GI: Soft, non-tender; bowel sounds normal. No peritoneal signs. Musculoskeletal: left foot cold to touch Skin: No rash or abscess Hem/Lymphatic: No palpable cervical or supraclavicular nodes. No lymphangitis Psych: Mood ok. Affect normal Neurological: Awake, alert, oriented. No gross abnormality - Constitutional Vitals: Vital Signs Temp Pulse Resp BP Pulse Ox 97.6 F 82 22 126/46 98 11/29/18 07:41 11/29/18 13:01 11/29/18 13:01 11/29/18 13:01 11/29/18 13:01 Temperature -Last 24 Hours Temperature 97.6 F - Labs CBC & Chem 7: 11/29/18 05:55 11/29/18 11:00 Labs: Abnormal lab results 11/28/18 11/28/18 11/28/18 Range/Units 14:11 14:15 15:14 WBC (4.5-11.0) K/mm3 RBC (3.65-5.03) M/mm3 Hgb (10.1-14.3) gm/dl Hct (30.3-42.9) % RDW (13.2-15.2) % Seg Neuts % (Manual) (40.0-70.0) % Lymphocytes % (Manual) (13.4-35.0) % Seg Neutrophils # Man (1.8-7.7) K/mm3 Monocytes # (Manual) (0.0-0.8) K/mm3 Sodium 151 H (137-145) mmol/L Potassium (3.6-5.0) mmol/L Chloride 112.4 H (98-107) mmol/L Carbon Dioxide 21 L D (22-30) mmol/L BUN (7-17) mg/dL Creatinine (0.7-1.2) mg/dL Glucose 167 H (65-100) mg/dL POC Glucose 119 H (70-105) Lactic Acid 4.80 H* (0.7-2.0) mmol/L Total Bilirubin (0.1-1.2) mg/dL AST (5-40) units/L ALT (7-56) units/L Alkaline Phosphatase (35-129) units/L Albumin (3.9-5) g/dL 11/28/18 11/28/18 11/28/18 Range/Units 15:14 15:22 16:22 WBC (4.5-11.0) K/mm3 RBC (3.65-5.03) M/mm3 Hgb (10.1-14.3) gm/dl Hct (30.3-42.9) % RDW (13.2-15.2) % Seg Neuts % (Manual) (40.0-70.0) % Lymphocytes % (Manual) (13.4-35.0) % Seg Neutrophils # Man (1.8-7.7) K/mm3 Monocytes # (Manual) (0.0-0.8) K/mm3 Sodium (137-145) mmol/L Potassium (3.6-5.0) mmol/L Chloride (98-107) mmol/L Carbon Dioxide (22-30) mmol/L BUN (7-17) mg/dL Creatinine (0.7-1.2) mg/dL Glucose (65-100) mg/dL POC Glucose 114 H 120 H (70-105) Lactic Acid 5.00 H* (0.7-2.0) mmol/L Total Bilirubin (0.1-1.2) mg/dL AST (5-40) units/L ALT (7-56) units/L Alkaline Phosphatase (35-129) units/L Albumin (3.9-5) g/dL 11/28/18 11/28/18 11/28/18 Range/Units 17:11 17:17 18:18 WBC (4.5-11.0) K/mm3 RBC (3.65-5.03) M/mm3 Hgb (10.1-14.3) gm/dl Hct (30.3-42.9) % RDW (13.2-15.2) % Seg Neuts % (Manual) (40.0-70.0) % Lymphocytes % (Manual) (13.4-35.0) % Seg Neutrophils # Man (1.8-7.7) K/mm3 Monocytes # (Manual) (0.0-0.8) K/mm3 Sodium 151 H (137-145) mmol/L Potassium (3.6-5.0) mmol/L Chloride 112.9 H (98-107) mmol/L Carbon Dioxide 21 L (22-30) mmol/L BUN (7-17) mg/dL Creatinine (0.7-1.2) mg/dL Glucose 265 H (65-100) mg/dL POC Glucose 183 H 269 H (70-105) Lactic Acid (0.7-2.0) mmol/L Total Bilirubin (0.1-1.2) mg/dL AST (5-40) units/L ALT (7-56) units/L Alkaline Phosphatase (35-129) units/L Albumin (3.9-5) g/dL 11/28/18 11/28/18 11/28/18 Range/Units 19:26 20:45 21:44 WBC (4.5-11.0) K/mm3 RBC (3.65-5.03) M/mm3 Hgb (10.1-14.3) gm/dl Hct (30.3-42.9) % RDW (13.2-15.2) % Seg Neuts % (Manual) (40.0-70.0) % Lymphocytes % (Manual) (13.4-35.0) % Seg Neutrophils # Man (1.8-7.7) K/mm3 Monocytes # (Manual) (0.0-0.8) K/mm3 Sodium (137-145) mmol/L Potassium (3.6-5.0) mmol/L Chloride (98-107) mmol/L Carbon Dioxide (22-30) mmol/L BUN (7-17) mg/dL Creatinine (0.7-1.2) mg/dL Glucose (65-100) mg/dL POC Glucose 243 H 177 H 124 H (70-105) Lactic Acid (0.7-2.0) mmol/L Total Bilirubin (0.1-1.2) mg/dL AST (5-40) units/L ALT (7-56) units/L Alkaline Phosphatase (35-129) units/L Albumin (3.9-5) g/dL 11/29/18 11/29/18 11/29/18 Range/Units 05:55 06:42 07:36 WBC 29.7 H (4.5-11.0) K/mm3 RBC 5.93 H (3.65-5.03) M/mm3 Hgb 16.6 H (10.1-14.3) gm/dl Hct 51.0 H (30.3-42.9) % RDW 19.7 H (13.2-15.2) % Seg Neuts % (Manual) 93.0 H (40.0-70.0) % Lymphocytes % (Manual) 4.0 L (13.4-35.0) % Seg Neutrophils # Man 27.6 H (1.8-7.7) K/mm3 Monocytes # (Manual) 0.9 H (0.0-0.8) K/mm3 Sodium (137-145) mmol/L Potassium (3.6-5.0) mmol/L Chloride (98-107) mmol/L Carbon Dioxide (22-30) mmol/L BUN (7-17) mg/dL Creatinine (0.7-1.2) mg/dL Glucose (65-100) mg/dL POC Glucose 118 H 146 H (70-105) Lactic Acid (0.7-2.0) mmol/L Total Bilirubin (0.1-1.2) mg/dL AST (5-40) units/L ALT (7-56) units/L Alkaline Phosphatase (35-129) units/L Albumin (3.9-5) g/dL 11/29/18 11/29/18 11/29/18 Range/Units 09:08 11:00 11:44 WBC (4.5-11.0) K/mm3 RBC (3.65-5.03) M/mm3 Hgb (10.1-14.3) gm/dl Hct (30.3-42.9) % RDW (13.2-15.2) % Seg Neuts % (Manual) (40.0-70.0) % Lymphocytes % (Manual) (13.4-35.0) % Seg Neutrophils # Man (1.8-7.7) K/mm3 Monocytes # (Manual) (0.0-0.8) K/mm3 Sodium 152 H 155 H (137-145) mmol/L Potassium 5.4 H 5.8 H (3.6-5.0) mmol/L Chloride 110.6 H 110.1 H (98-107) mmol/L Carbon Dioxide 20 L 15 L (22-30) mmol/L BUN 20 H 21 H (7-17) mg/dL Creatinine 1.6 H 1.4 H (0.7-1.2) mg/dL Glucose 237 H 204 H (65-100) mg/dL POC Glucose 203 H (70-105) Lactic Acid (0.7-2.0) mmol/L Total Bilirubin 3.80 H 3.70 H (0.1-1.2) mg/dL AST 351 H 361 H (5-40) units/L ALT 123 H 125 H (7-56) units/L Alkaline Phosphatase 222 H 227 H (35-129) units/L Albumin 3.5 L 3.4 L (3.9-5) g/dL
--- NOTE | 2018-11-29 13:18 | Progress Note ---
Assessment and Plan Impression: Diabetic ketoacidosis resolved New-onset diabetes Left lower extremity discoloration probably related to vascular abnormalities Suspects Raynaud's disease Left finger ischemia possible embolic or small vessel disease. cardiomyopathy status post AICD Ventricular arrhythmia status post activation of AICD multiple times Recommendation: Start on long-acting insulin as per protocol Hematology consult regarding embolic ischemic changes possible HIT Vascular to manage ischemic changes Cardiology consult to rule out an mural thrombus and status of the cardiomyopathy. Total critical care time 31 minute Subjective Date of service: 11/29/18 Interval history: Patient awake and alert. Complaining of left foot pain. Has history of scleroderma. Diabetic ketoacidosis seems to have resolved. Objective Vital Signs - 12hr 11/29/18 11/29/18 11/29/18 02:29 02:30 02:36 Temperature Pulse Rate 93 H 99 H 120 H Respiratory 33 H 24 22 Rate Blood Pressure 128/84 128/84 139/106 Blood Pressure [Left] O2 Sat by Pulse 97 Oximetry 11/29/18 11/29/18 11/29/18 02:40 02:45 02:51 Temperature Pulse Rate 120 H 105 H 99 H Respiratory 42 H 25 H 57 H Rate Blood Pressure 139/106 Blood Pressure [Left] O2 Sat by Pulse 86 Oximetry 11/29/18 11/29/18 11/29/18 02:55 03:01 03:05 Temperature Pulse Rate 91 H 110 H 110 H Respiratory 31 H 53 H 20 Rate Blood Pressure 144/89 144/89 Blood Pressure [Left] O2 Sat by Pulse 85 Oximetry 11/29/18 11/29/18 11/29/18 03:11 03:15 03:21 Temperature Pulse Rate 112 H 106 H 124 H Respiratory 24 22 30 H Rate Blood Pressure 139/106 139/106 96/70 Blood Pressure [Left] O2 Sat by Pulse 96 98 Oximetry 11/29/18 11/29/18 11/29/18 03:25 03:31 03:35 Temperature Pulse Rate 108 H 92 H 118 H Respiratory 20 35 H 23 Rate Blood Pressure 96/70 96/70 110/62 Blood Pressure [Left] O2 Sat by Pulse 97 Oximetry 11/29/18 11/29/18 11/29/18 03:41 03:45 03:51 Temperature Pulse Rate 96 H 116 H 98 H Respiratory 21 26 H 26 H Rate Blood Pressure 110/62 110/62 126/89 Blood Pressure [Left] O2 Sat by Pulse 97 Oximetry 11/29/18 11/29/18 11/29/18 03:55 04:01 04:05 Temperature Pulse Rate 89 111 H 97 H Respiratory 40 H 19 61 H Rate Blood Pressure 126/89 113/86 113/86 Blood Pressure [Left] O2 Sat by Pulse 99 99 Oximetry 11/29/18 11/29/18 11/29/18 04:11 04:21 04:30 Temperature Pulse Rate 91 H 103 H 117 H Respiratory 15 35 H 49 H Rate Blood Pressure 113/86 112/68 106/76 Blood Pressure [Left] O2 Sat by Pulse Oximetry 11/29/18 11/29/18 11/29/18 04:41 04:51 05:01 Temperature Pulse Rate 93 H 91 H 95 H Respiratory 26 H 49 H 26 H Rate Blood Pressure 106/76 69/27 139/96 Blood Pressure [Left] O2 Sat by Pulse 99 99 Oximetry 11/29/18 11/29/18 11/29/18 05:11 05:21 05:30 Temperature Pulse Rate 91 H 90 87 Respiratory 43 H 44 H 12 Rate Blood Pressure 139/96 133/61 126/66 Blood Pressure [Left] O2 Sat by Pulse 100 100 95 Oximetry 11/29/18 11/29/18 11/29/18 05:41 05:51 06:01 Temperature Pulse Rate 90 90 94 H Respiratory 14 32 H 28 H Rate Blood Pressure 126/66 126/66 126/66 Blood Pressure [Left] O2 Sat by Pulse 98 100 Oximetry 11/29/18 11/29/18 11/29/18 06:11 06:21 06:31 Temperature Pulse Rate 92 H 90 87 Respiratory 17 49 H 61 H Rate Blood Pressure 126/66 126/66 126/66 Blood Pressure [Left] O2 Sat by Pulse 100 98 Oximetry 11/29/18 11/29/18 11/29/18 06:41 06:51 07:01 Temperature Pulse Rate 98 H 91 H 89 Respiratory 26 H 19 29 H Rate Blood Pressure 126/66 126/66 124/73 Blood Pressure [Left] O2 Sat by Pulse 100 Oximetry 11/29/18 11/29/18 11/29/18 07:11 07:21 07:31 Temperature Pulse Rate 87 85 88 Respiratory 54 H 24 32 H Rate Blood Pressure 124/73 145/55 151/51 Blood Pressure [Left] O2 Sat by Pulse 98 100 100 Oximetry 11/29/18 11/29/18 11/29/18 07:41 07:51 08:14 Temperature 97.6 F Pulse Rate 87 87 Respiratory 34 H 39 H Rate Blood Pressure 151/51 104/65 Blood Pressure 151/51 [Left] O2 Sat by Pulse 100 100 100 Oximetry 11/29/18 11/29/18 11/29/18 08:38 08:41 08:51 Temperature Pulse Rate 88 90 87 Respiratory 11 L 23 21 Rate Blood Pressure 113/60 113/60 Blood Pressure [Left] O2 Sat by Pulse 98 100 99 Oximetry 11/29/18 11/29/18 11/29/18 09:01 09:11 09:21 Temperature Pulse Rate 87 87 90 Respiratory 18 17 16 Rate Blood Pressure 113/62 113/62 113/62 Blood Pressure [Left] O2 Sat by Pulse 100 98 100 Oximetry 11/29/18 11/29/18 11/29/18 09:31 09:41 09:51 Temperature Pulse Rate 95 H 90 88 Respiratory 23 25 H 30 H Rate Blood Pressure 113/62 113/62 113/62 Blood Pressure [Left] O2 Sat by Pulse 97 99 100 Oximetry 11/29/18 11/29/18 11/29/18 10:00 10:01 10:11 Temperature Pulse Rate 84 87 87 Respiratory 10 L 19 Rate Blood Pressure 109/85 109/85 Blood Pressure [Left] O2 Sat by Pulse 99 100 Oximetry 11/29/18 11/29/18 11/29/18 10:21 10:31 10:41 Temperature Pulse Rate 87 85 83 Respiratory 17 18 29 H Rate Blood Pressure 109/85 109/85 109/85 Blood Pressure [Left] O2 Sat by Pulse 98 98 98 Oximetry 11/29/18 11/29/18 11/29/18 10:51 11:01 11:11 Temperature Pulse Rate 84 84 87 Respiratory 29 H 21 58 H Rate Blood Pressure 109/85 109/85 109/85 Blood Pressure [Left] O2 Sat by Pulse 97 98 97 Oximetry 11/29/18 11/29/18 11/29/18 11:21 11:31 11:41 Temperature Pulse Rate 85 83 83 Respiratory 16 50 H 19 Rate Blood Pressure 109/85 98/79 98/79 Blood Pressure [Left] O2 Sat by Pulse 98 99 99 Oximetry 11/29/18 11/29/18 11/29/18 11:51 12:00 12:11 Temperature Pulse Rate 83 83 82 Respiratory 32 H 54 H 59 H Rate Blood Pressure 98/79 101/74 101/74 Blood Pressure [Left] O2 Sat by Pulse 99 99 96 Oximetry 11/29/18 11/29/18 11/29/18 12:21 12:31 12:41 Temperature Pulse Rate 82 83 83 Respiratory 15 19 61 H Rate Blood Pressure 101/74 101/74 101/74 Blood Pressure [Left] O2 Sat by Pulse 98 97 98 Oximetry 11/29/18 11/29/18 12:51 13:01 Temperature Pulse Rate 86 82 Respiratory 38 H 22 Rate Blood Pressure 101/74 126/46 Blood Pressure [Left] O2 Sat by Pulse 99 98 Oximetry Constitutional: no acute distress, alert Eyes: non-icteric ENT: oropharynx moist Neck: supple Effort: normal Ascultation: Bilateral: clear, diminished breath sounds Cardiovascular: regular rate and rhythm Gastrointestinal: normoactive bowel sounds, non-tender, non-distended, other (obese) Extremities: other (discolration noted in LE and ischemic left middle finger) CBC and BMP: 11/29/18 05:55 11/29/18 11:00 ABG, PT/INR, D-dimer: ABG ABG pH 7.414 pH Units (7.350-7.450) 11/28/18 01:01 ABG pCO2 48.8 mm Hg 11/28/18 01:01 ABG pO2 65.7 mm Hg (80.0-90.0) L 11/28/18 01:01 ABG O2 Saturation 91.3 % (95.0-99.0) L 11/28/18 01:01 PT/INR, D-dimer PT 15.6 Sec. (12.2-14.9) H 11/28/18 01:01 INR 1.27 (0.87-1.13) H 11/28/18 01:01 Abnormal lab findings: Abnormal Labs 11/27/18 11/28/18 11/28/18 23:40 01:01 01:01 WBC 15.1 H RBC 6.19 H Hgb 17.4 H Hct 54.6 H RDW 19.6 H Lymph % (Auto) 6.3 L Lymph # 0.9 L Gem # 0.9 H Seg Neutrophils % 87.2 H Seg Neuts % (Manual) Lymphocytes % (Manual) Seg Neutrophils # 13.2 H Seg Neutrophils # Man Monocytes # (Manual) PT 15.6 H INR 1.27 H ABG pO2 ABG HCO3 ABG O2 Saturation ABG Base Excess ABG Hemoglobin Oxyhemoglobin Sodium Potassium Chloride Carbon Dioxide BUN Creatinine Glucose POC Glucose > 500 H Hemoglobin A1c Lactic Acid Phosphorus Magnesium Total Bilirubin Direct Bilirubin AST ALT Alkaline Phosphatase Total Creatine Kinase Troponin T Albumin Triglycerides Cholesterol HDL Cholesterol Salicylates Acetaminophen 11/28/18 11/28/18 11/28/18 01:01 01:01 01:01 WBC RBC Hgb Hct RDW Lymph % (Auto) Lymph # Gem # Seg Neutrophils % Seg Neuts % (Manual) Lymphocytes % (Manual) Seg Neutrophils # Seg Neutrophils # Man Monocytes # (Manual) PT INR ABG pO2 ABG HCO3 ABG O2 Saturation ABG Base Excess ABG Hemoglobin Oxyhemoglobin Sodium Potassium 5.9 H Chloride 92.9 L Carbon Dioxide BUN 20 H Creatinine 1.3 H Glucose 1088 H* POC Glucose Hemoglobin A1c Lactic Acid 3.50 H* Phosphorus Magnesium Total Bilirubin 2.40 H Direct Bilirubin 1.3 H AST ALT Alkaline Phosphatase 225 H Total Creatine Kinase Troponin T 0.030 H Albumin 3.8 L Triglycerides 356 H Cholesterol 200 H HDL Cholesterol 39 L Salicylates < 0.3 L Acetaminophen 11/28/18 11/28/18 11/28/18 01:01 01:01 01:01 WBC RBC Hgb Hct RDW Lymph % (Auto) Lymph # Gem # Seg Neutrophils % Seg Neuts % (Manual) Lymphocytes % (Manual) Seg Neutrophils # Seg Neutrophils # Man Monocytes # (Manual) PT INR ABG pO2 65.7 L ABG HCO3 30.5 H ABG O2 Saturation 91.3 L ABG Base Excess 4.6 H ABG Hemoglobin 18.0 H Oxyhemoglobin 88.0 L Sodium Potassium Chloride Carbon Dioxide BUN Creatinine Glucose POC Glucose Hemoglobin A1c Lactic Acid Phosphorus Magnesium 3.70 H Total Bilirubin Direct Bilirubin AST ALT Alkaline Phosphatase Total Creatine Kinase 228 H Troponin T Albumin Triglycerides Cholesterol HDL Cholesterol Salicylates Acetaminophen < 5.0 L 11/28/18 11/28/18 11/28/18 01:01 02:39 03:17 WBC RBC Hgb Hct RDW Lymph % (Auto) Lymph # Gem # Seg Neutrophils % Seg Neuts % (Manual) Lymphocytes % (Manual) Seg Neutrophils # Seg Neutrophils # Man Monocytes # (Manual) PT INR ABG pO2 ABG HCO3 ABG O2 Saturation ABG Base Excess ABG Hemoglobin Oxyhemoglobin Sodium Potassium Chloride Carbon Dioxide BUN Creatinine Glucose POC Glucose > 500 H Hemoglobin A1c 12.5 H Lactic Acid 3.00 H* Phosphorus Magnesium Total Bilirubin Direct Bilirubin AST ALT Alkaline Phosphatase Total Creatine Kinase Troponin T Albumin Triglycerides Cholesterol HDL Cholesterol Salicylates Acetaminophen 11/28/18 11/28/18 11/28/18 03:17 03:17 03:35 WBC RBC Hgb Hct RDW Lymph % (Auto) Lymph # Gem # Seg Neutrophils % Seg Neuts % (Manual) Lymphocytes % (Manual) Seg Neutrophils # Seg Neutrophils # Man Monocytes # (Manual) PT INR ABG pO2 ABG HCO3 ABG O2 Saturation ABG Base Excess ABG Hemoglobin Oxyhemoglobin Sodium Potassium 6.1 H* Chloride 97.6 L Carbon Dioxide BUN 20 H Creatinine Glucose 927 H* POC Glucose > 500 H Hemoglobin A1c Lactic Acid Phosphorus 4.70 H Magnesium 3.70 H Total Bilirubin Direct Bilirubin AST ALT Alkaline Phosphatase Total Creatine Kinase Troponin T Albumin Triglycerides Cholesterol HDL Cholesterol Salicylates Acetaminophen 11/28/18 11/28/18 11/28/18 04:43 05:35 06:30 WBC RBC Hgb Hct RDW Lymph % (Auto) Lymph # Gem # Seg Neutrophils % Seg Neuts % (Manual) Lymphocytes % (Manual) Seg Neutrophils # Seg Neutrophils # Man Monocytes # (Manual) PT INR ABG pO2 ABG HCO3 ABG O2 Saturation ABG Base Excess ABG Hemoglobin Oxyhemoglobin Sodium Potassium Chloride Carbon Dioxide BUN Creatinine Glucose POC Glucose > 500 H > 500 H > 500 H Hemoglobin A1c Lactic Acid Phosphorus Magnesium Total Bilirubin Direct Bilirubin AST ALT Alkaline Phosphatase Total Creatine Kinase Troponin T Albumin Triglycerides Cholesterol HDL Cholesterol Salicylates Acetaminophen 11/28/18 11/28/18 11/28/18 07:50 07:50 07:50 WBC RBC Hgb Hct RDW Lymph % (Auto) Lymph # Gem # Seg Neutrophils % Seg Neuts % (Manual) Lymphocytes % (Manual) Seg Neutrophils # Seg Neutrophils # Man Monocytes # (Manual) PT INR ABG pO2 ABG HCO3 ABG O2 Saturation ABG Base Excess ABG Hemoglobin Oxyhemoglobin Sodium 156 H D Potassium 3.3 L D Chloride 112.8 H Carbon Dioxide BUN Creatinine Glucose 409 H POC Glucose Hemoglobin A1c Lactic Acid 6.20 H* Phosphorus Magnesium Total Bilirubin Direct Bilirubin AST ALT Alkaline Phosphatase Total Creatine Kinase Troponin T 0.030 H D Albumin Triglycerides Cholesterol HDL Cholesterol Salicylates Acetaminophen 11/28/18 11/28/18 11/28/18 10:33 12:52 14:11 WBC RBC Hgb Hct RDW Lymph % (Auto) Lymph # Gem # Seg Neutrophils % Seg Neuts % (Manual) Lymphocytes % (Manual) Seg Neutrophils # Seg Neutrophils # Man Monocytes # (Manual) PT INR ABG pO2 ABG HCO3 ABG O2 Saturation ABG Base Excess ABG Hemoglobin Oxyhemoglobin Sodium Potassium Chloride Carbon Dioxide BUN Creatinine Glucose POC Glucose 411 H 204 H 119 H Hemoglobin A1c Lactic Acid Phosphorus Magnesium Total Bilirubin Direct Bilirubin AST ALT Alkaline Phosphatase Total Creatine Kinase Troponin T Albumin Triglycerides Cholesterol HDL Cholesterol Salicylates Acetaminophen 11/28/18 11/28/18 11/28/18 14:15 15:14 15:14 WBC RBC Hgb Hct RDW Lymph % (Auto) Lymph # Gem # Seg Neutrophils % Seg Neuts % (Manual) Lymphocytes % (Manual) Seg Neutrophils # Seg Neutrophils # Man Monocytes # (Manual) PT INR ABG pO2 ABG HCO3 ABG O2 Saturation ABG Base Excess ABG Hemoglobin Oxyhemoglobin Sodium 151 H Potassium Chloride 112.4 H Carbon Dioxide 21 L D BUN Creatinine Glucose 167 H POC Glucose Hemoglobin A1c Lactic Acid 4.80 H* 5.00 H* Phosphorus Magnesium Total Bilirubin Direct Bilirubin AST ALT Alkaline Phosphatase Total Creatine Kinase Troponin T Albumin Triglycerides Cholesterol HDL Cholesterol Salicylates Acetaminophen 11/28/18 11/28/18 11/28/18 15:22 16:22 17:11 WBC RBC Hgb Hct RDW Lymph % (Auto) Lymph # Gem # Seg Neutrophils % Seg Neuts % (Manual) Lymphocytes % (Manual) Seg Neutrophils # Seg Neutrophils # Man Monocytes # (Manual) PT INR ABG pO2 ABG HCO3 ABG O2 Saturation ABG Base Excess ABG Hemoglobin Oxyhemoglobin Sodium Potassium Chloride Carbon Dioxide BUN Creatinine Glucose POC Glucose 114 H 120 H 183 H Hemoglobin A1c Lactic Acid Phosphorus Magnesium Total Bilirubin Direct Bilirubin AST ALT Alkaline Phosphatase Total Creatine Kinase Troponin T Albumin Triglycerides Cholesterol HDL Cholesterol Salicylates Acetaminophen 11/28/18 11/28/18 11/28/18 17:17 18:18 19:26 WBC RBC Hgb Hct RDW Lymph % (Auto) Lymph # Gem # Seg Neutrophils % Seg Neuts % (Manual) Lymphocytes % (Manual) Seg Neutrophils # Seg Neutrophils # Man Monocytes # (Manual) PT INR ABG pO2 ABG HCO3 ABG O2 Saturation ABG Base Excess ABG Hemoglobin Oxyhemoglobin Sodium 151 H Potassium Chloride 112.9 H Carbon Dioxide 21 L BUN Creatinine Glucose 265 H POC Glucose 269 H 243 H Hemoglobin A1c Lactic Acid Phosphorus Magnesium Total Bilirubin Direct Bilirubin AST ALT Alkaline Phosphatase Total Creatine Kinase Troponin T Albumin Triglycerides Cholesterol HDL Cholesterol Salicylates Acetaminophen 11/28/18 11/28/18 11/29/18 20:45 21:44 05:55 WBC 29.7 H RBC 5.93 H Hgb 16.6 H Hct 51.0 H RDW 19.7 H Lymph % (Auto) Lymph # Gem # Seg Neutrophils % Seg Neuts % (Manual) 93.0 H Lymphocytes % (Manual) 4.0 L Seg Neutrophils # Seg Neutrophils # Man 27.6 H Monocytes # (Manual) 0.9 H PT INR ABG pO2 ABG HCO3 ABG O2 Saturation ABG Base Excess ABG Hemoglobin Oxyhemoglobin Sodium Potassium Chloride Carbon Dioxide BUN Creatinine Glucose POC Glucose 177 H 124 H Hemoglobin A1c Lactic Acid Phosphorus Magnesium Total Bilirubin Direct Bilirubin AST ALT Alkaline Phosphatase Total Creatine Kinase Troponin T Albumin Triglycerides Cholesterol HDL Cholesterol Salicylates Acetaminophen 11/29/18 11/29/18 11/29/18 06:42 07:36 09:08 WBC RBC Hgb Hct RDW Lymph % (Auto) Lymph # Gem # Seg Neutrophils % Seg Neuts % (Manual) Lymphocytes % (Manual) Seg Neutrophils # Seg Neutrophils # Man Monocytes # (Manual) PT INR ABG pO2 ABG HCO3 ABG O2 Saturation ABG Base Excess ABG Hemoglobin Oxyhemoglobin Sodium 152 H Potassium 5.4 H Chloride 110.6 H Carbon Dioxide 20 L BUN 20 H Creatinine 1.6 H Glucose 237 H POC Glucose 118 H 146 H Hemoglobin A1c Lactic Acid Phosphorus Magnesium Total Bilirubin 3.80 H Direct Bilirubin AST 351 H ALT 123 H Alkaline Phosphatase 222 H Total Creatine Kinase Troponin T Albumin 3.5 L Triglycerides Cholesterol HDL Cholesterol Salicylates Acetaminophen 11/29/18 11/29/18 11:00 11:44 WBC RBC Hgb Hct RDW Lymph % (Auto) Lymph # Gem # Seg Neutrophils % Seg Neuts % (Manual) Lymphocytes % (Manual) Seg Neutrophils # Seg Neutrophils # Man Monocytes # (Manual) PT INR ABG pO2 ABG HCO3 ABG O2 Saturation ABG Base Excess ABG Hemoglobin Oxyhemoglobin Sodium 155 H Potassium 5.8 H Chloride 110.1 H Carbon Dioxide 15 L BUN 21 H Creatinine 1.4 H Glucose 204 H POC Glucose 203 H Hemoglobin A1c Lactic Acid Phosphorus Magnesium Total Bilirubin 3.70 H Direct Bilirubin AST 361 H ALT 125 H Alkaline Phosphatase 227 H Total Creatine Kinase Troponin T Albumin 3.4 L Triglycerides Cholesterol HDL Cholesterol Salicylates Acetaminophen
[2018-11-29] MEDS: ARGATROBAN 250 MG in NACL 0.9% 250ML 247.5 ML IV SCH (13:27)
[2018-11-29] MEDS ORDERED: CALCIUM GLUCONATE 1,000 MG in NACL 0.9% 100 ML IV STA (14:42)
[2018-11-29] MEDS ORDERED: HumuLIN R IV STA (14:44)
[2018-11-29] MEDS: TRENTAL PO SCH ×2 (14:45→21:57)
[2018-11-29 15:14] LABS: Creatinine,Urine 117.4 mg/dL (0.1-20.0)
[2018-11-29] MEDS: NITRO-BID 2% TP SCH ×2 (15:56→17:55)
[2018-11-29] MEDS: KIONEX PO SCH ×2 (15:58→17:55)
[2018-11-29] MEDS ORDERED: MAGNESIUM SULFATE 2GM/50ML 2 GM/50 ML BAG IV ONE ×2 (17:21→17:51)
[2018-11-29] MEDS: SINGULAIR PO SCH (17:31)
[2018-11-29 17:46] LABS: Calcium 9.7 mg/dL (8.4-10.2)
--- NOTE | 2018-11-29 20:59 | Event Note ---
Date: 11/29/18 [id number]
[2018-11-29] MEDS: CORDARONE 900 MG in D5W 482 ML IV SCH (21:27)
[2018-11-29] MEDS: ELAVIL PO SCH (21:57)
[2018-11-29] MEDS ORDERED: NACL 0.9% 500 ML 500 ML IV ONE (22:56)
[2018-11-29] MEDS ORDERED: NACL 0.9% 500 ML 500 ML ONE (23:04)
[2018-11-30] MEDS: XANAX PO PRN (01:21)
--- NOTE | 2018-11-30 04:21 | Consultation ---
REFERRED BY: Dr. Osuna REASON FOR CONSULTATION: Question of HIT versus other cause of thrombosis. HISTORY OF PRESENT ILLNESS: The patient has past history of hypertension, nonischemic cardiomyopathy with low ejection fraction, came to the hospital because of generalized weakness. As per the information, the patient has been having nausea and vomiting, multiple episodes and also noticed bluish discoloration of the feet. 911 was called. No history of chest pain, shortness of breath, abdominal pain, no diarrhea. The patient was at one of the ER recently and then discharged. After admission and evaluation, the patient was found to have ischemia in the feet/toes and left hand fingers. Vascular team was consulted. I spoke to Cardiology team. At this time, the patient does not have any indication for anticoagulation from cardiac perspective. The patient has history of AICD. During this admission, DKA was found and treated. PAST MEDICAL HISTORY: Arthritis, GERD, hypertension. PAST SURGICAL HISTORY: Cholecystectomy, AICD, back surgery. SOCIAL HISTORY: None significant, no tobacco or drug usage. FAMILY HISTORY: Noncontributory. ALLERGIES: LISINOPRIL. HOME MEDICATIONS: Aspirin, Flonase, Lasix, ibuprofen, mycophenolate, valsartan, prednisone. PHYSICAL EXAMINATION: GENERAL: Young female. No pallor. VITAL SIGNS: Temperature 97, pulse 91, respirations 28, blood pressure 109/97. HEENT: Icterus present. NECK: No neck lymph nodes. HEART: S1, S2. LUNGS: Decreased air entry. ABDOMEN: Soft, obese. EXTREMITIES: Both toes are cold. Left finger is dark color. LABORATORY DATA: White cell 29, hemoglobin 16, MCV 86, platelet 213. Potassium 5.8, creatinine 1.4, calcium 9.1, bilirubin 3.7. RADIOLOGY: Doppler, no occlusive disease seen in both forearms; lower extremity Doppler, occluded left anterior tibial artery and dorsalis pedal artery, diffuse peripheral vascular disease in both lower extremities. The patient has been started on argatroban. ADAMTS 13 has been ordered. ASSESSMENT: Peripheral extremities both lower and left upper extremity thromboembolic disease. This may be related to her generalized disease etiology versus rheumatology issue versus embolic phenomena. I discussed with Cardiology, transthoracic echo has been done to see if there is any source of thrombus. If source is found, then oral anticoagulation is an option. At this time, the patient is on argatroban. There is a question if this is HIT. However, the platelet count is not low. HIT test has been ordered. 1. Elevated bilirubin. 2. Electrolyte imbalance. 3. Arterial thrombus, on anticoagulation. 4. Diabetic ketoacidosis. 5. Hypertension. 6. Ischemic cardiomyopathy with low ejection fraction. 7. Respiratory failure. 8. Sepsis, elevated troponin /CPK. I will follow the patient during inpatient stay and then in the clinic setting. The cause of thromboembolism is not clear. White cell count is high. There is a question if this has any relation. The Cardiology is planning trans-endoscopic echocardiogram if needed. JOB# [id number] NM/NTS
[2018-11-30] MEDS: NITRO-BID 2% TP SCH ×4 (06:35→18:22)
--- NOTE | 2018-11-30 07:49 | Hem/Onc Progress Note ---
Assessment and Plan Peripheral extremities both lower and left upper extremity thromboembolic disease. This may be related to her generalized disease etiology versus rheumatology issue versus embolic phenomena. I had discussed with Cardiology, transthoracic echo has been done to see if there is any source of thrombus. If source is found, then oral anticoagulation is an option. At this time, the patient is on argatroban. There is a question if this is HIT. However, the platelet count is not low. HIT test has been ordered. 1. Elevated bilirubin. 2. Electrolyte imbalance. 3. Arterial thrombus, on anticoagulation. 4. Diabetic ketoacidosis. 5. Hypertension. 6. Ischemic cardiomyopathy with low ejection fraction. 7. Respiratory failure. 8. Sepsis, elevated troponin /CPK. I will follow the patient during inpatient stay and then in the clinic setting. The cause of thromboembolism is not clear. White cell count is high. There is a question if this has any relation. The Cardiology is planning trans- endoscopic echocardiogram if needed. - Patient Problems (1) Ischemia Current Visit: Yes Status: Acute Subjective Date of service: 11/30/18 Principal diagnosis: thrombosis Interval history: still on argatroban Objective - Exam Narrative Exam: Pain - hand and leg General appearance pain Performance status limited self care Eyes - no icterus ENT - no bleeding LNs cervical not palpable Neck - no LN Respiratory Normal Breath sounds - CTA CVS S1 S2 + Extremities normal temperature General GI Soft Rectal deferred female - deferred Skin warm Musculoskeletal moving extremitites - dark foot and left hand finger Neurologically awake - Constitutional Vitals: Last Vital Signs Temp 97.5 F L 11/30/18 04:00 Pulse 104 H 11/30/18 06:35 Resp 45 H 11/30/18 06:31 BP 105/79 11/30/18 06:35 Pulse Ox 96 11/30/18 06:31 - Labs Lab Results: Laboratory Results - last 24 hr 11/29/18 11/29/18 11/29/18 07:36 09:08 11:00 APTT Sodium 152 H 155 H Potassium 5.4 H 5.8 H Chloride 110.6 H 110.1 H Carbon Dioxide 20 L 15 L Anion Gap 27 36 BUN 20 H 21 H Creatinine 1.6 H 1.4 H Estimated GFR 44 51 BUN/Creatinine Ratio 13 15 Glucose 237 H 204 H POC Glucose 146 H Calcium 9.1 9.1 Total Bilirubin 3.80 H 3.70 H AST 351 H 361 H ALT 123 H 125 H Alkaline Phosphatase 222 H 227 H Total Protein 6.7 6.7 Albumin 3.5 L 3.4 L Albumin/Globulin Ratio 1.1 1.0 Urine Eosinophils Urine Creatinine Urine Sodium Urine Total Protein 11/29/18 11/29/18 11/29/18 11:44 13:40 13:40 APTT Sodium Potassium Chloride Carbon Dioxide Anion Gap BUN Creatinine Estimated GFR BUN/Creatinine Ratio Glucose POC Glucose 203 H Calcium Total Bilirubin AST ALT Alkaline Phosphatase Total Protein Albumin Albumin/Globulin Ratio Urine Eosinophils None seen Urine Creatinine 117.4 H Urine Sodium 53 Urine Total Protein 120 H 11/29/18 11/29/18 11/29/18 16:29 16:46 16:46 APTT 49.5 H Sodium 148 H Potassium 4.8 Chloride 108.3 H Carbon Dioxide 21 L Anion Gap 24 BUN 22 H Creatinine 1.4 H Estimated GFR 51 BUN/Creatinine Ratio 16 Glucose 152 H POC Glucose 158 H Calcium 9.7 Total Bilirubin AST ALT Alkaline Phosphatase Total Protein Albumin Albumin/Globulin Ratio Urine Eosinophils Urine Creatinine Urine Sodium Urine Total Protein 11/29/18 11/29/18 11/30/18 22:02 23:58 05:51 APTT 63.2 H* Sodium Potassium Chloride Carbon Dioxide Anion Gap BUN Creatinine Estimated GFR BUN/Creatinine Ratio Glucose POC Glucose 183 H 156 H Calcium Total Bilirubin AST ALT Alkaline Phosphatase Total Protein Albumin Albumin/Globulin Ratio Urine Eosinophils Urine Creatinine Urine Sodium Urine Total Protein Medications & Allergies - Medications Allergies/Adverse Reactions: Allergies lisinopril Adverse Reaction (Severe, Verified 12/17/13 19:00) SORE THROAT;PERSISTENT COUGH Home Medications: Home Medications Medication Instructions Recorded Confirmed Last Taken Type Aspirin [Aspirin BABY CHEW TAB] 81 mg PO QDAY 11/28/18 11/29/18 11/26/18 History Fluticasone [Flonase] 1 spray NS BID 11/28/18 11/28/18 Unknown History Furosemide [Lasix TAB] 40 mg PO BID 11/28/18 11/28/18 Unknown History Ibuprofen [Motrin] 600 mg PO Q6H PRN 11/28/18 11/28/18 Unknown History Montelukast [Singulair] 10 mg PO QPM 11/28/18 11/28/18 Unknown History Mycophenolate [Cellcept] 500 mg PO BID 11/28/18 11/28/18 Unknown History Mycophenolate [Cellcept] 500 mg PO BID PRN MDD 2 TABS 11/28/18 11/28/18 Unknown History Pantoprazole [Protonix] 40 mg PO QDAY 11/28/18 11/28/18 Unknown History RX: predniSONE [Deltasone] 50 mg PO QDAY 11/28/18 11/28/18 Unknown History Sacubitril/Valsartan [Entresto 1 each PO BID 11/28/18 11/28/18 Unknown History 49-51 mg] raNITIdine HCl [Zantac] 150 mg PO BID 11/28/18 11/28/18 Unknown History Aspirin [Adult Aspirin] 81 mg PO ONCE 11/29/18 11/29/18 11/26/18 History Entresto 49-51 mg 49 mg PO BID 11/29/18 11/29/18 11/26/18 History HYDROcodone/APAP 5-325 5 mg PO Q6HR PRN 11/29/18 11/29/18 Unknown History RX: Amitriptyline [Elavil] 25 mg PO HS 11/29/18 11/29/18 11/26/18 History Active Medications: Generic Name Dose Route Start Last Admin Trade Name Freq PRN Reason Stop Dose Admin Acetaminophen 650 mg 11/28/18 03:02 Tylenol PO Q4H PRN Pain MILD(1-3)/Fever >100.5/TURPIN Alprazolam 0.25 mg 11/30/18 01:09 11/30/18 01:21 Xanax PO 0.25 mg Q8H PRN Administration Anxiety Amitriptyline HCl 25 mg 11/29/18 22:00 11/29/18 21:57 Elavil PO 25 mg HS VIOLA Administration Aspirin 81 mg 11/29/18 10:00 11/29/18 12:18 Baby Aspirin PO 81 mg QDAY VIOLA Administration Dextrose 0 ml 11/28/18 02:19 D50w (25gm) Syringe IV PRN PRN Hypoglycemia Fluticasone Propionate 50 mcg 11/29/18 10:00 11/29/18 21:57 Flonase NS 50 mcg BID VIOLA Administration Hydralazine HCl 10 mg 11/28/18 03:41 Apresoline IV Q6HR PRN Blood Pressure Insulin Human Regular 100 100 mls @ 1 mls/hr 11/28/18 03:00 11/28/18 22:42 units/ Sodium Chloride IV 0 units/hr TITR VIOLA 0 mls/hr Titration Protocol 1 UNITS/HR Amiodarone HCl 900 mg/ 500 mls @ 33.333 mls/hr 11/28/18 15:00 11/29/18 21:27 Dextrose IV 1 mg/min DIRECT VIOLA 33.333 mls/hr Administration Protocol 1 MG/MIN Argatroban 250 mg/ Sodium 250 mls @ 3.682 mls/hr 11/29/18 13:00 11/29/18 18:01 Chloride IV 0.5 mcg/kg/min TITR VIOLA 3.682 mls/hr Titration Protocol 0.5 MCG/KG/MIN Insulin Human Isoph/Insulin Regular 10 unit 11/29/18 11:00 11/29/18 17:31 Humulin 70/30 SUB-Q 10 unit BIDDIAB VIOLA Administration Magnesium Oxide 200 mg 11/30/18 10:00 Mag-Ox PO QDAY VIOLA Montelukast Sodium 10 mg 11/29/18 18:00 11/29/18 17:31 Singulair PO 10 mg QPM VIOLA Administration Morphine Sulfate 2 mg 11/28/18 03:02 Morphine IV Q4H PRN Pain, Moderate (4-6) Nitroglycerin 0.75 inch 11/29/18 14:00 11/30/18 06:35 Nitro-Bid 2% TP 0.75 inch QIDNTG VIOLA Administration Protocol Ondansetron HCl 4 mg 11/28/18 03:02 Zofran IV Q8H PRN Nausea And Vomiting Pantoprazole Sodium 40 mg 11/29/18 10:00 11/29/18 12:18 Protonix PO 40 mg QDAY VIOLA Administration Pentoxifylline 400 mg 11/29/18 13:00 11/29/18 21:57 Trental PO 400 mg Q12HR VIOLA Administration Prednisone 50 mg 11/29/18 10:00 11/29/18 12:19 Deltasone PO 50 mg QDAY VIOLA Administration Sodium Chloride 10 ml 11/28/18 10:00 11/29/18 21:58 Sodium Chloride Flush Syringe 10 Ml IV 10 ml BID VIOLA Administration Sodium Chloride 10 ml 11/28/18 03:02 Sodium Chloride Flush Syringe 10 Ml IV PRN PRN LINE FLUSH
[2018-11-30 08:33] LABS: Alanine Aminotransferase 213 units/L (7-56); Albumin 3.4 g/dL (3.9-5); BUN/Creatinine Ratio 17; Blood Urea Nitrogen 17 mg/dL (7-17); Calcium 9.3 mg/dL (8.4-10.2); Hemolysis Index 88
[2018-11-30] MEDS: HumaLOG SUB-Q SCH ×4 (09:31→22:55)
[2018-11-30] MEDS: ENTRESTO 49-51 MG PO SCH ×2 (09:32→22:55)
[2018-11-30] MEDS: PROTONIX PO SCH (09:32)
[2018-11-30] MEDS: DELTASONE PO SCH (09:32)
[2018-11-30] MEDS: TRENTAL PO SCH ×2 (09:32→22:59)
[2018-11-30] MEDS: BABY ASPIRIN PO SCH (09:32)
[2018-11-30] MEDS: FLONASE NS SCH ×2 (09:33→22:58)
[2018-11-30 09:56] LABS: Hemoglobin 18.2 gm/dl (10.1-14.3)
[2018-11-30] MEDS ORDERED: MAG-OX PO SCH (10:00)
--- NOTE | 2018-11-30 10:00 | Progress Note ---
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 by arterial doppler Sleep apnea on CPAP Interstitial Lung disease Hypertension Chronic systolic heart failure, EF of 20-25% Presence of AICD on 11/28/18 patient had multiple shocks from her ICD for runs of VT/VF currently on IV amiodarone Elevated troponin Probably secondary to demand ischemia due to acute process Echocardiogram completed, results are pending Continue IV amiodarone. We will give a bolus of IV amiodarone 150 and add beta blockers for suppression of NSVT. Subjective Date of service: 11/30/18 Principal diagnosis: thrombosis Interval history: Short burst of NSVT on telemetry this morning. Objective Vital Signs Temp Pulse Resp BP Pulse Ox 11/30/18 09:56 91 H 11/30/18 09:50 95 H 30 H 143/117 99 11/30/18 09:42 98 H 172/138 11/30/18 09:41 97 H 53 H 172/138 92 11/30/18 09:31 87 44 H 161/124 97 11/30/18 09:21 98 H 18 122/63 80 L 11/30/18 09:11 103 H 55 H 122/63 11/30/18 09:01 103 H 31 H 122/63 11/30/18 08:51 97 H 29 H 122/63 96 11/30/18 08:41 98 H 52 H 122/63 97 11/30/18 08:31 105 H 62 H 122/63 96 11/30/18 08:21 108 H 46 H 99/81 94 11/30/18 08:11 97 H 43 H 99/81 98 11/30/18 08:00 95 H 53 H 99/81 98 11/30/18 07:51 98 H 41 H 104/81 93 11/30/18 07:41 94 H 47 H 104/81 96 11/30/18 07:31 110 H 57 H 104/81 11/30/18 07:21 102 H 60 H 79/51 11/30/18 07:11 108 H 45 H 79/51 96 11/30/18 07:01 90 60 H 105/79 98 11/30/18 06:51 126 H 52 H 105/79 96 11/30/18 06:41 101 H 57 H 105/79 98 11/30/18 06:35 104 H 105/79 11/30/18 06:31 106 H 45 H 105/79 96 11/30/18 06:21 95 H 39 H 110/78 99 11/30/18 06:11 92 H 57 H 110/78 99 11/30/18 06:00 99 H 55 H 110/78 98 11/30/18 05:51 89 55 H 114/85 100 11/30/18 05:41 105 H 55 H 114/85 97 11/30/18 05:30 105 H 26 H 114/85 11/30/18 05:21 96 H 36 H 111/78 98 11/30/18 05:11 95 H 29 H 111/78 99 11/30/18 05:01 110 H 39 H 95/73 100 11/30/18 04:51 101 H 43 H 95/73 98 11/30/18 04:41 92 H 36 H 95/73 11/30/18 04:31 98 H 57 H 95/73 98 11/30/18 04:21 99 H 19 112/78 96 11/30/18 04:11 88 35 H 112/78 97 11/30/18 04:00 97.5 F L 95 H 40 H 112/78 100 11/30/18 03:51 118 H 61 H 107/63 98 11/30/18 03:41 109 H 34 H 91/71 99 11/30/18 03:30 89 38 H 91/71 99 11/30/18 03:21 101 H 28 H 112/60 11/30/18 03:11 91 H 58 H 107/63 97 11/30/18 03:00 86 36 H 112/60 99 11/30/18 02:52 90 48 H 112/60 100 11/30/18 02:41 103 H 39 H 112/60 99 11/30/18 02:31 99 H 63 H 112/60 100 11/30/18 02:21 97 H 27 H 136/71 99 11/30/18 02:11 92 H 46 H 122/77 100 11/30/18 02:01 96 H 47 H 122/77 100 11/30/18 01:50 86 41 H 136/71 93 11/30/18 01:41 92 H 45 H 136/71 96 11/30/18 01:31 102 H 33 H 136/71 99 11/30/18 01:21 101 H 17 122/77 97 11/30/18 01:11 97 H 44 H 122/77 99 11/30/18 01:01 116 H 19 119/83 96 11/30/18 00:51 116 H 18 112/87 100 11/30/18 00:41 104 H 56 H 112/87 99 11/30/18 00:31 97 H 49 H 122/77 11/30/18 00:21 105 H 28 H 112/87 97 11/30/18 00:10 113 H 50 H 119/97 11/30/18 00:01 92 H 51 H 96/69 98 11/30/18 00:00 97.1 F L 99 11/29/18 23:51 99 H 48 H 96/69 94 11/29/18 23:41 129 H 24 96/69 93 11/29/18 23:31 115 H 25 H 90/64 11/29/18 23:21 118 H 48 H 90/64 100 11/29/18 23:11 117 H 42 H 90/64 11/29/18 23:01 104 H 26 H 68/33 96 11/29/18 22:51 101 H 34 H 68/33 98 11/29/18 22:41 108 H 45 H 51/22 98 11/29/18 22:31 105 H 29 H 48/23 94 11/29/18 22:21 91 H 46 H 48/23 96 11/29/18 22:19 99 H 47 H 48/23 97 11/29/18 22:11 107 H 62 H 48/23 98 11/29/18 22:07 116 H 54 H 48/23 95 11/29/18 22:01 108 H 23 48/23 11/29/18 22:00 90 11/29/18 21:51 96 H 54 H 104/77 100 11/29/18 21:41 93 H 29 H 104/77 97 11/29/18 21:31 88 27 H 104/77 97 11/29/18 21:21 99 H 29 H 104/77 11/29/18 21:11 124 H 27 H 104/77 98 11/29/18 21:01 95 H 25 H 104/77 98 11/29/18 20:51 111 H 25 H 119/97 95 11/29/18 20:41 117 H 13 119/97 11/29/18 20:32 97 11/29/18 20:31 95 H 20 119/97 96 11/29/18 20:21 101 H 23 119/97 100 11/29/18 20:11 87 27 H 119/97 11/29/18 20:01 106 H 40 H 86/66 11/29/18 20:00 97.6 F 98 11/29/18 19:51 104 H 45 H 119/97 99 11/29/18 19:41 83 59 H 119/97 98 11/29/18 19:31 91 H 30 H 119/97 98 11/29/18 19:21 92 H 59 H 119/97 99 11/29/18 19:11 93 H 32 H 119/97 96 11/29/18 19:01 98 H 38 H 119/97 96 11/29/18 18:51 109 H 36 H 132/99 97 11/29/18 18:41 99 H 46 H 132/99 98 11/29/18 18:30 101 H 28 H 132/99 99 11/29/18 18:21 81 21 132/99 99 11/29/18 18:11 100 H 33 H 132/99 99 11/29/18 18:01 93 H 61 H 132/99 97 11/29/18 17:51 83 39 H 118/77 100 11/29/18 17:41 93 H 22 118/77 95 11/29/18 17:31 111 H 60 H 118/77 92 11/29/18 17:21 86 56 H 118/77 11/29/18 17:11 96 H 13 118/77 90 11/29/18 17:01 101 H 48 H 107/81 98 11/29/18 16:51 96 H 28 H 107/81 100 11/29/18 16:41 87 56 H 107/81 97 11/29/18 16:31 105 H 45 H 107/81 98 11/29/18 16:21 105 H 24 107/81 96 11/29/18 16:11 90 56 H 107/81 98 11/29/18 16:01 98 H 41 H 107/81 98 11/29/18 16:00 98 11/29/18 15:56 107 H 104/48 11/29/18 15:51 114 H 19 104/48 11/29/18 15:41 100 H 28 H 104/48 97 11/29/18 15:31 94 H 49 H 104/48 100 11/29/18 15:21 110 H 29 H 104/48 98 11/29/18 15:11 99 H 42 H 104/48 11/29/18 15:01 95 H 58 H 104/48 100 11/29/18 14:51 113 H 60 H 104/48 11/29/18 14:41 115 H 33 H 104/48 100 11/29/18 14:31 103 H 19 104/48 100 11/29/18 14:21 127 H 28 H 104/48 11/29/18 14:11 110 H 15 104/48 100 11/29/18 14:01 94 H 32 H 104/48 98 11/29/18 13:51 89 16 126/46 99 11/29/18 13:41 113 H 17 126/46 100 11/29/18 13:31 90 27 H 126/46 97 11/29/18 13:21 93 H 65 H 126/46 99 11/29/18 13:11 84 15 126/46 99 11/29/18 13:01 82 22 126/46 98 11/29/18 12:51 86 38 H 101/74 99 11/29/18 12:41 83 61 H 101/74 98 11/29/18 12:31 83 19 101/74 97 11/29/18 12:21 82 15 101/74 98 11/29/18 12:11 82 59 H 101/74 96 11/29/18 12:00 83 54 H 101/74 99 11/29/18 11:51 83 32 H 98/79 99 11/29/18 11:41 83 19 98/79 99 11/29/18 11:31 83 50 H 98/79 99 11/29/18 11:21 85 16 109/85 98 11/29/18 11:11 87 58 H 109/85 97 11/29/18 11:01 84 21 109/85 98 11/29/18 10:51 84 29 H 109/85 97 11/29/18 10:41 83 29 H 109/85 98 11/29/18 10:31 85 18 109/85 98 11/29/18 10:21 87 17 109/85 98 11/29/18 10:11 87 19 109/85 100 11/29/18 10:01 87 10 L 109/85 99 11/29/18 10:00 84 - Physical Examination General: No Apparent Distress HEENT: Positive: PERRL Neck: Positive: trachea midline Cardiac: Positive: Irregularly Regular Lungs: Positive: Decreased Breath Sounds Neuro: Positive: Grossly Intact - Labs and Meds Cardiac Enzymes 11/29/18 11/29/18 11/30/18 Range/Units 09:08 11:00 07:18 AST 351 H 361 H 480 H (5-40) units/L Coagulation 11/29/18 11/29/18 Range/Units 16:46 22:02 APTT 49.5 H 63.2 H* (24.2-36.6) Sec. Comprehensive Metabolic Panel 11/29/18 11/29/18 11/29/18 Range/Units 09:08 11:00 16:46 Sodium 152 H 155 H 148 H (137-145) mmol/L Potassium 5.4 H 5.8 H 4.8 (3.6-5.0) mmol/L Chloride 110.6 H 110.1 H 108.3 H (98-107) mmol/L Carbon Dioxide 20 L 15 L 21 L (22-30) mmol/L BUN 20 H 21 H 22 H (7-17) mg/dL Creatinine 1.6 H 1.4 H 1.4 H (0.7-1.2) mg/dL Glucose 237 H 204 H 152 H (65-100) mg/dL Calcium 9.1 9.1 9.7 (8.4-10.2) mg/dL AST 351 H 361 H (5-40) units/L ALT 123 H 125 H (7-56) units/L Alkaline Phosphatase 222 H 227 H (35-129) units/L Total Protein 6.7 6.7 (6.3-8.2) g/dL Albumin 3.5 L 3.4 L (3.9-5) g/dL 11/30/18 Range/Units 07:18 Sodium 150 H (137-145) mmol/L Potassium 4.8 (3.6-5.0) mmol/L Chloride 110.3 H (98-107) mmol/L Carbon Dioxide 20 L (22-30) mmol/L BUN 17 (7-17) mg/dL Creatinine 1.0 (0.7-1.2) mg/dL Glucose 149 H (65-100) mg/dL Calcium 9.3 (8.4-10.2) mg/dL AST 480 H (5-40) units/L ALT 213 H (7-56) units/L Alkaline Phosphatase 258 H (35-129) units/L Total Protein 7.6 (6.3-8.2) g/dL Albumin 3.4 L (3.9-5) g/dL
[2018-11-30 10:04] LABS: Mean Corpuscular HGB Conc 32 % (30-34); Mean Corpuscular Volume 87 fl (79-97); Platelet Count 202 K/mm3 (140-440); Red Blood Count 6.58 M/mm3 (3.65-5.03); Red Cell Distribution Width 19.3 % (13.2-15.2)
[2018-11-30 10:10] LABS: Hematocrit 57.2 % (30.3-42.9)
[2018-11-30] MEDS ORDERED: VASELINE LIP THERAPY TP PRN (11:55)
[2018-11-30] MEDS ORDERED: CORDARONE 150 MG in D5W 97 ML IV ONE (12:00)
--- NOTE | 2018-11-30 12:29 | Progress Note ---
Assessment and Plan Impression: Diabetic ketoacidosis resolved, on long-acting insulin. New-onset diabetes Left lower extremity discoloration probably related to vascular abnormalities/ ischemia Suspects Raynaud's disease Left finger ischemia possible embolic or small vessel disease. cardiomyopathy status post AICD Recurrent Ventricular arrhythmia status post activation of AICD multiple times Dehydration/volume depletion with hypernatremia Sleep apnea on CPAP Recommendation: Continue with oral fluid/free water replacement Vascular to manage ischemic changes Continue with CPAP during sleep and when necessary. Tachypnea may be related to anxiety and pain. Total critical care time 31 minute Subjective Date of service: 11/30/18 Principal diagnosis: thrombosis Interval history: Patient awake and alert. Complaining of left foot pain. Has history of scleroderma. Diabetic ketoacidosis seems to have resolved. Episodes or tachypnea. Has sleep apnea CPAP when sleeping. Objective Vital Signs - 12hr 11/30/18 11/30/18 11/30/18 00:31 00:41 00:51 Temperature Pulse Rate 97 H 104 H 116 H Respiratory 49 H 56 H 18 Rate Blood Pressure 122/77 112/87 112/87 O2 Sat by Pulse 99 100 Oximetry 11/30/18 11/30/18 11/30/18 01:01 01:11 01:21 Temperature Pulse Rate 116 H 97 H 101 H Respiratory 19 44 H 17 Rate Blood Pressure 119/83 122/77 122/77 O2 Sat by Pulse 96 99 97 Oximetry 11/30/18 11/30/18 11/30/18 01:31 01:41 01:50 Temperature Pulse Rate 102 H 92 H 86 Respiratory 33 H 45 H 41 H Rate Blood Pressure 136/71 136/71 136/71 O2 Sat by Pulse 99 96 93 Oximetry 11/30/18 11/30/18 11/30/18 02:01 02:11 02:21 Temperature Pulse Rate 96 H 92 H 97 H Respiratory 47 H 46 H 27 H Rate Blood Pressure 122/77 122/77 136/71 O2 Sat by Pulse 100 100 99 Oximetry 11/30/18 11/30/18 11/30/18 02:31 02:41 02:52 Temperature Pulse Rate 99 H 103 H 90 Respiratory 63 H 39 H 48 H Rate Blood Pressure 112/60 112/60 112/60 O2 Sat by Pulse 100 99 100 Oximetry 08/20/19 08/20/19 08/20/19 03:00 03:11 03:21 Temperature Pulse Rate 86 91 H 101 H Respiratory 36 H 58 H 28 H Rate Blood Pressure 112/60 107/63 112/60 O2 Sat by Pulse 99 97 Oximetry 11/30/18 11/30/18 11/30/18 03:30 03:41 03:51 Temperature Pulse Rate 89 109 H 118 H Respiratory 38 H 34 H 61 H Rate Blood Pressure 91/71 91/71 107/63 O2 Sat by Pulse 99 99 98 Oximetry 11/30/18 11/30/18 11/30/18 04:00 04:11 04:21 Temperature 97.5 F L Pulse Rate 95 H 88 99 H Respiratory 40 H 35 H 19 Rate Blood Pressure 112/78 112/78 112/78 O2 Sat by Pulse 100 97 96 Oximetry 11/30/18 11/30/18 11/30/18 04:31 04:41 04:51 Temperature Pulse Rate 98 H 92 H 101 H Respiratory 57 H 36 H 43 H Rate Blood Pressure 95/73 95/73 95/73 O2 Sat by Pulse 98 98 Oximetry 11/30/18 11/30/18 11/30/18 05:01 05:11 05:21 Temperature Pulse Rate 110 H 95 H 96 H Respiratory 39 H 29 H 36 H Rate Blood Pressure 95/73 111/78 111/78 O2 Sat by Pulse 100 99 98 Oximetry 11/30/18 11/30/18 11/30/18 05:30 05:41 05:51 Temperature Pulse Rate 105 H 105 H 89 Respiratory 26 H 55 H 55 H Rate Blood Pressure 114/85 114/85 114/85 O2 Sat by Pulse 97 100 Oximetry 11/30/18 11/30/18 11/30/18 06:00 06:11 06:21 Temperature Pulse Rate 99 H 92 H 95 H Respiratory 55 H 57 H 39 H Rate Blood Pressure 110/78 110/78 110/78 O2 Sat by Pulse 98 99 99 Oximetry 11/30/18 11/30/18 11/30/18 06:31 06:35 06:41 Temperature Pulse Rate 106 H 104 H 101 H Respiratory 45 H 57 H Rate Blood Pressure 105/79 105/79 105/79 O2 Sat by Pulse 96 98 Oximetry 11/30/18 11/30/18 11/30/18 06:51 07:01 07:11 Temperature Pulse Rate 126 H 90 108 H Respiratory 52 H 60 H 45 H Rate Blood Pressure 105/79 105/79 79/51 O2 Sat by Pulse 96 98 96 Oximetry 11/30/18 11/30/18 11/30/18 07:21 07:31 07:41 Temperature Pulse Rate 102 H 110 H 94 H Respiratory 60 H 57 H 47 H Rate Blood Pressure 79/51 104/81 104/81 O2 Sat by Pulse 96 Oximetry 11/30/18 11/30/18 11/30/18 07:51 08:00 08:11 Temperature Pulse Rate 98 H 95 H 97 H Respiratory 41 H 53 H 43 H Rate Blood Pressure 104/81 99/81 99/81 O2 Sat by Pulse 93 98 98 Oximetry 11/30/18 11/30/18 11/30/18 08:21 08:31 08:41 Temperature Pulse Rate 108 H 105 H 98 H Respiratory 46 H 62 H 52 H Rate Blood Pressure 99/81 122/63 122/63 O2 Sat by Pulse 94 96 97 Oximetry 11/30/18 11/30/18 11/30/18 08:51 09:01 09:11 Temperature Pulse Rate 97 H 103 H 103 H Respiratory 29 H 31 H 55 H Rate Blood Pressure 122/63 122/63 122/63 O2 Sat by Pulse 96 Oximetry 11/30/18 11/30/18 11/30/18 09:21 09:31 09:41 Temperature Pulse Rate 98 H 87 97 H Respiratory 18 44 H 53 H Rate Blood Pressure 122/63 161/124 172/138 O2 Sat by Pulse 80 L 97 92 Oximetry 11/30/18 11/30/18 11/30/18 09:42 09:50 09:56 Temperature Pulse Rate 98 H 95 H 91 H Respiratory 30 H Rate Blood Pressure 172/138 143/117 O2 Sat by Pulse 99 Oximetry 11/30/18 11/30/18 11/30/18 10:01 10:11 10:21 Temperature Pulse Rate 98 H 88 82 Respiratory 61 H 59 H 58 H Rate Blood Pressure 162/89 162/89 162/89 O2 Sat by Pulse 95 94 95 Oximetry 11/30/18 11/30/18 11/30/18 10:30 10:41 10:51 Temperature Pulse Rate 91 H 96 H 97 H Respiratory 46 H 37 H 56 H Rate Blood Pressure 162/89 149/89 149/89 O2 Sat by Pulse 94 95 95 Oximetry 11/30/18 11/30/18 11/30/18 11:01 11:11 11:21 Temperature Pulse Rate 95 H 98 H 93 H Respiratory 55 H 53 H 39 H Rate Blood Pressure 121/85 121/85 121/85 O2 Sat by Pulse 100 93 95 Oximetry Constitutional: no acute distress, alert Eyes: non-icteric ENT: oropharynx moist Neck: supple Effort: normal Ascultation: Bilateral: clear, diminished breath sounds Cardiovascular: regular rate and rhythm Gastrointestinal: normoactive bowel sounds, non-tender, non-distended, other (obese) Extremities: other (discolration noted in LE and ischemic left middle finger) CBC and BMP: 11/30/18 09:40 11/30/18 07:18 ABG, PT/INR, D-dimer: ABG ABG pH 7.414 pH Units (7.350-7.450) 11/28/18 01:01 ABG pCO2 48.8 mm Hg 11/28/18 01:01 ABG pO2 65.7 mm Hg (80.0-90.0) L 11/28/18 01:01 ABG O2 Saturation 91.3 % (95.0-99.0) L 11/28/18 01:01 PT/INR, D-dimer PT 15.6 Sec. (12.2-14.9) H 11/28/18 01:01 INR 1.27 (0.87-1.13) H 11/28/18 01:01 Abnormal lab findings: Abnormal Labs 11/27/18 11/28/18 11/28/18 23:40 01:01 01:01 WBC 15.1 H RBC 6.19 H Hgb 17.4 H Hct 54.6 H RDW 19.6 H Lymph % (Auto) 6.3 L Lymph # 0.9 L [place] # 0.9 H Seg Neutrophils % 87.2 H Seg Neuts % (Manual) Lymphocytes % (Manual) Seg Neutrophils # 13.2 H Seg Neutrophils # Man Monocytes # (Manual) PT 15.6 H INR 1.27 H APTT ABG pO2 ABG HCO3 ABG O2 Saturation ABG Base Excess ABG Hemoglobin Oxyhemoglobin Sodium Potassium Chloride Carbon Dioxide BUN Creatinine Glucose POC Glucose > 500 H Hemoglobin A1c Lactic Acid Phosphorus Magnesium Total Bilirubin Direct Bilirubin AST ALT Alkaline Phosphatase Total Creatine Kinase Troponin T Albumin Triglycerides Cholesterol HDL Cholesterol Urine Creatinine Urine Total Protein Salicylates Acetaminophen 11/28/18 11/28/18 11/28/18 01:01 01:01 01:01 WBC RBC Hgb Hct RDW Lymph % (Auto) Lymph # [place] # Seg Neutrophils % Seg Neuts % (Manual) Lymphocytes % (Manual) Seg Neutrophils # Seg Neutrophils # Man Monocytes # (Manual) PT INR APTT ABG pO2 ABG HCO3 ABG O2 Saturation ABG Base Excess ABG Hemoglobin Oxyhemoglobin Sodium Potassium 5.9 H Chloride 92.9 L Carbon Dioxide BUN 20 H Creatinine 1.3 H Glucose 1088 H* POC Glucose Hemoglobin A1c Lactic Acid 3.50 H* Phosphorus Magnesium Total Bilirubin 2.40 H Direct Bilirubin 1.3 H AST ALT Alkaline Phosphatase 225 H Total Creatine Kinase Troponin T 0.030 H Albumin 3.8 L Triglycerides 356 H Cholesterol 200 H HDL Cholesterol 39 L Urine Creatinine Urine Total Protein Salicylates < 0.3 L Acetaminophen 11/28/18 11/28/18 11/28/18 01:01 01:01 01:01 WBC RBC Hgb Hct RDW Lymph % (Auto) Lymph # [place] # Seg Neutrophils % Seg Neuts % (Manual) Lymphocytes % (Manual) Seg Neutrophils # Seg Neutrophils # Man Monocytes # (Manual) PT INR APTT ABG pO2 65.7 L ABG HCO3 30.5 H ABG O2 Saturation 91.3 L ABG Base Excess 4.6 H ABG Hemoglobin 18.0 H Oxyhemoglobin 88.0 L Sodium Potassium Chloride Carbon Dioxide BUN Creatinine Glucose POC Glucose Hemoglobin A1c Lactic Acid Phosphorus Magnesium 3.70 H Total Bilirubin Direct Bilirubin AST ALT Alkaline Phosphatase Total Creatine Kinase 228 H Troponin T Albumin Triglycerides Cholesterol HDL Cholesterol Urine Creatinine Urine Total Protein Salicylates Acetaminophen < 5.0 L 11/28/18 11/28/18 11/28/18 01:01 02:39 03:17 WBC RBC Hgb Hct RDW Lymph % (Auto) Lymph # [place] # Seg Neutrophils % Seg Neuts % (Manual) Lymphocytes % (Manual) Seg Neutrophils # Seg Neutrophils # Man Monocytes # (Manual) PT INR APTT ABG pO2 ABG HCO3 ABG O2 Saturation ABG Base Excess ABG Hemoglobin Oxyhemoglobin Sodium Potassium Chloride Carbon Dioxide BUN Creatinine Glucose POC Glucose > 500 H Hemoglobin A1c 12.5 H Lactic Acid 3.00 H* Phosphorus Magnesium Total Bilirubin Direct Bilirubin AST ALT Alkaline Phosphatase Total Creatine Kinase Troponin T Albumin Triglycerides Cholesterol HDL Cholesterol Urine Creatinine Urine Total Protein Salicylates Acetaminophen 11/28/18 11/28/18 11/28/18 03:17 03:17 03:35 WBC RBC Hgb Hct RDW Lymph % (Auto) Lymph # [place] # Seg Neutrophils % Seg Neuts % (Manual) Lymphocytes % (Manual) Seg Neutrophils # Seg Neutrophils # Man Monocytes # (Manual) PT INR APTT ABG pO2 ABG HCO3 ABG O2 Saturation ABG Base Excess ABG Hemoglobin Oxyhemoglobin Sodium Potassium 6.1 H* Chloride 97.6 L Carbon Dioxide BUN 20 H Creatinine Glucose 927 H* POC Glucose > 500 H Hemoglobin A1c Lactic Acid Phosphorus 4.70 H Magnesium 3.70 H Total Bilirubin Direct Bilirubin AST ALT Alkaline Phosphatase Total Creatine Kinase Troponin T Albumin Triglycerides Cholesterol HDL Cholesterol Urine Creatinine Urine Total Protein Salicylates Acetaminophen 11/28/18 11/28/18 11/28/18 04:43 05:35 06:30 WBC RBC Hgb Hct RDW Lymph % (Auto) Lymph # [place] # Seg Neutrophils % Seg Neuts % (Manual) Lymphocytes % (Manual) Seg Neutrophils # Seg Neutrophils # Man Monocytes # (Manual) PT INR APTT ABG pO2 ABG HCO3 ABG O2 Saturation ABG Base Excess ABG Hemoglobin Oxyhemoglobin Sodium Potassium Chloride Carbon Dioxide BUN Creatinine Glucose POC Glucose > 500 H > 500 H > 500 H Hemoglobin A1c Lactic Acid Phosphorus Magnesium Total Bilirubin Direct Bilirubin AST ALT Alkaline Phosphatase Total Creatine Kinase Troponin T Albumin Triglycerides Cholesterol HDL Cholesterol Urine Creatinine Urine Total Protein Salicylates Acetaminophen 11/28/18 11/28/18 11/28/18 07:50 07:50 07:50 WBC RBC Hgb Hct RDW Lymph % (Auto) Lymph # [place] # Seg Neutrophils % Seg Neuts % (Manual) Lymphocytes % (Manual) Seg Neutrophils # Seg Neutrophils # Man Monocytes # (Manual) PT INR APTT ABG pO2 ABG HCO3 ABG O2 Saturation ABG Base Excess ABG Hemoglobin Oxyhemoglobin Sodium 156 H D Potassium 3.3 L D Chloride 112.8 H Carbon Dioxide BUN Creatinine Glucose 409 H POC Glucose Hemoglobin A1c Lactic Acid 6.20 H* Phosphorus Magnesium Total Bilirubin Direct Bilirubin AST ALT Alkaline Phosphatase Total Creatine Kinase Troponin T 0.030 H D Albumin Triglycerides Cholesterol HDL Cholesterol Urine Creatinine Urine Total Protein Salicylates Acetaminophen 11/28/18 11/28/18 11/28/18 10:33 12:52 14:11 WBC RBC Hgb Hct RDW Lymph % (Auto) Lymph # [place] # Seg Neutrophils % Seg Neuts % (Manual) Lymphocytes % (Manual) Seg Neutrophils # Seg Neutrophils # Man Monocytes # (Manual) PT INR APTT ABG pO2 ABG HCO3 ABG O2 Saturation ABG Base Excess ABG Hemoglobin Oxyhemoglobin Sodium Potassium Chloride Carbon Dioxide BUN Creatinine Glucose POC Glucose 411 H 204 H 119 H Hemoglobin A1c Lactic Acid Phosphorus Magnesium Total Bilirubin Direct Bilirubin AST ALT Alkaline Phosphatase Total Creatine Kinase Troponin T Albumin Triglycerides Cholesterol HDL Cholesterol Urine Creatinine Urine Total Protein Salicylates Acetaminophen 11/28/18 11/28/18 11/28/18 14:15 15:14 15:14 WBC RBC Hgb Hct RDW Lymph % (Auto) Lymph # [place] # Seg Neutrophils % Seg Neuts % (Manual) Lymphocytes % (Manual) Seg Neutrophils # Seg Neutrophils # Man Monocytes # (Manual) PT INR APTT ABG pO2 ABG HCO3 ABG O2 Saturation ABG Base Excess ABG Hemoglobin Oxyhemoglobin Sodium 151 H Potassium Chloride 112.4 H Carbon Dioxide 21 L D BUN Creatinine Glucose 167 H POC Glucose Hemoglobin A1c Lactic Acid 4.80 H* 5.00 H* Phosphorus Magnesium Total Bilirubin Direct Bilirubin AST ALT Alkaline Phosphatase Total Creatine Kinase Troponin T Albumin Triglycerides Cholesterol HDL Cholesterol Urine Creatinine Urine Total Protein Salicylates Acetaminophen 11/28/18 11/28/18 11/28/18 15:22 16:22 17:11 WBC RBC Hgb Hct RDW Lymph % (Auto) Lymph # [place] # Seg Neutrophils % Seg Neuts % (Manual) Lymphocytes % (Manual) Seg Neutrophils # Seg Neutrophils # Man Monocytes # (Manual) PT INR APTT ABG pO2 ABG HCO3 ABG O2 Saturation ABG Base Excess ABG Hemoglobin Oxyhemoglobin Sodium Potassium Chloride Carbon Dioxide BUN Creatinine Glucose POC Glucose 114 H 120 H 183 H Hemoglobin A1c Lactic Acid Phosphorus Magnesium Total Bilirubin Direct Bilirubin AST ALT Alkaline Phosphatase Total Creatine Kinase Troponin T Albumin Triglycerides Cholesterol HDL Cholesterol Urine Creatinine Urine Total Protein Salicylates Acetaminophen 11/28/18 11/28/18 11/28/18 17:17 18:18 19:26 WBC RBC Hgb Hct RDW Lymph % (Auto) Lymph # [place] # Seg Neutrophils % Seg Neuts % (Manual) Lymphocytes % (Manual) Seg Neutrophils # Seg Neutrophils # Man Monocytes # (Manual) PT INR APTT ABG pO2 ABG HCO3 ABG O2 Saturation ABG Base Excess ABG Hemoglobin Oxyhemoglobin Sodium 151 H Potassium Chloride 112.9 H Carbon Dioxide 21 L BUN Creatinine Glucose 265 H POC Glucose 269 H 243 H Hemoglobin A1c Lactic Acid Phosphorus Magnesium Total Bilirubin Direct Bilirubin AST ALT Alkaline Phosphatase Total Creatine Kinase Troponin T Albumin Triglycerides Cholesterol HDL Cholesterol Urine Creatinine Urine Total Protein Salicylates Acetaminophen 11/28/18 11/28/18 11/29/18 20:45 21:44 05:55 WBC 29.7 H RBC 5.93 H Hgb 16.6 H Hct 51.0 H RDW 19.7 H Lymph % (Auto) Lymph # [place] # Seg Neutrophils % Seg Neuts % (Manual) 93.0 H Lymphocytes % (Manual) 4.0 L Seg Neutrophils # Seg Neutrophils # Man 27.6 H Monocytes # (Manual) 0.9 H PT INR APTT ABG pO2 ABG HCO3 ABG O2 Saturation ABG Base Excess ABG Hemoglobin Oxyhemoglobin Sodium Potassium Chloride Carbon Dioxide BUN Creatinine Glucose POC Glucose 177 H 124 H Hemoglobin A1c Lactic Acid Phosphorus Magnesium Total Bilirubin Direct Bilirubin AST ALT Alkaline Phosphatase Total Creatine Kinase Troponin T Albumin Triglycerides Cholesterol HDL Cholesterol Urine Creatinine Urine Total Protein Salicylates Acetaminophen 11/29/18 11/29/18 11/29/18 06:42 07:36 09:08 WBC RBC Hgb Hct RDW Lymph % (Auto) Lymph # [place] # Seg Neutrophils % Seg Neuts % (Manual) Lymphocytes % (Manual) Seg Neutrophils # Seg Neutrophils # Man Monocytes # (Manual) PT INR APTT ABG pO2 ABG HCO3 ABG O2 Saturation ABG Base Excess ABG Hemoglobin Oxyhemoglobin Sodium 152 H Potassium 5.4 H Chloride 110.6 H Carbon Dioxide 20 L BUN 20 H Creatinine 1.6 H Glucose 237 H POC Glucose 118 H 146 H Hemoglobin A1c Lactic Acid Phosphorus Magnesium Total Bilirubin 3.80 H Direct Bilirubin AST 351 H ALT 123 H Alkaline Phosphatase 222 H Total Creatine Kinase Troponin T Albumin 3.5 L Triglycerides Cholesterol HDL Cholesterol Urine Creatinine Urine Total Protein Salicylates Acetaminophen 11/29/18 11/29/18 11/29/18 11:00 11:44 13:40 WBC RBC Hgb Hct RDW Lymph % (Auto) Lymph # [place] # Seg Neutrophils % Seg Neuts % (Manual) Lymphocytes % (Manual) Seg Neutrophils # Seg Neutrophils # Man Monocytes # (Manual) PT INR APTT ABG pO2 ABG HCO3 ABG O2 Saturation ABG Base Excess ABG Hemoglobin Oxyhemoglobin Sodium 155 H Potassium 5.8 H Chloride 110.1 H Carbon Dioxide 15 L BUN 21 H Creatinine 1.4 H Glucose 204 H POC Glucose 203 H Hemoglobin A1c Lactic Acid Phosphorus Magnesium Total Bilirubin 3.70 H Direct Bilirubin AST 361 H ALT 125 H Alkaline Phosphatase 227 H Total Creatine Kinase Troponin T Albumin 3.4 L Triglycerides Cholesterol HDL Cholesterol Urine Creatinine 117.4 H Urine Total Protein 120 H Salicylates Acetaminophen 11/29/18 11/29/18 11/29/18 16:29 16:46 16:46 WBC RBC Hgb Hct RDW Lymph % (Auto) Lymph # [place] # Seg Neutrophils % Seg Neuts % (Manual) Lymphocytes % (Manual) Seg Neutrophils # Seg Neutrophils # Man Monocytes # (Manual) PT INR APTT 49.5 H ABG pO2 ABG HCO3 ABG O2 Saturation ABG Base Excess ABG Hemoglobin Oxyhemoglobin Sodium 148 H Potassium Chloride 108.3 H Carbon Dioxide 21 L BUN 22 H Creatinine 1.4 H Glucose 152 H POC Glucose 158 H Hemoglobin A1c Lactic Acid Phosphorus Magnesium Total Bilirubin Direct Bilirubin AST ALT Alkaline Phosphatase Total Creatine Kinase Troponin T Albumin Triglycerides Cholesterol HDL Cholesterol Urine Creatinine Urine Total Protein Salicylates Acetaminophen 11/29/18 11/29/18 11/30/18 22:02 23:58 05:51 WBC RBC Hgb Hct RDW Lymph % (Auto) Lymph # [place] # Seg Neutrophils % Seg Neuts % (Manual) Lymphocytes % (Manual) Seg Neutrophils # Seg Neutrophils # Man Monocytes # (Manual) PT INR APTT 63.2 H* ABG pO2 ABG HCO3 ABG O2 Saturation ABG Base Excess ABG Hemoglobin Oxyhemoglobin Sodium Potassium Chloride Carbon Dioxide BUN Creatinine Glucose POC Glucose 183 H 156 H Hemoglobin A1c Lactic Acid Phosphorus Magnesium Total Bilirubin Direct Bilirubin AST ALT Alkaline Phosphatase Total Creatine Kinase Troponin T Albumin Triglycerides Cholesterol HDL Cholesterol Urine Creatinine Urine Total Protein Salicylates Acetaminophen 11/30/18 11/30/18 11/30/18 07:18 07:58 09:40 WBC 28.8 H RBC 6.58 H Hgb 18.2 H Hct 57.2 H* D RDW 19.3 H Lymph % (Auto) Lymph # [place] # Seg Neutrophils % Seg Neuts % (Manual) Lymphocytes % (Manual) Seg Neutrophils # Seg Neutrophils # Man Monocytes # (Manual) PT INR APTT ABG pO2 ABG HCO3 ABG O2 Saturation ABG Base Excess ABG Hemoglobin Oxyhemoglobin Sodium 150 H Potassium Chloride 110.3 H Carbon Dioxide 20 L BUN Creatinine Glucose 149 H POC Glucose 190 H Hemoglobin A1c Lactic Acid Phosphorus Magnesium 3.20 H Total Bilirubin 3.70 H Direct Bilirubin AST 480 H ALT 213 H Alkaline Phosphatase 258 H Total Creatine Kinase Troponin T Albumin 3.4 L Triglycerides Cholesterol HDL Cholesterol Urine Creatinine Urine Total Protein Salicylates Acetaminophen 11/30/18 11:24 WBC RBC Hgb Hct RDW Lymph % (Auto) Lymph # [place] # Seg Neutrophils % Seg Neuts % (Manual) Lymphocytes % (Manual) Seg Neutrophils # Seg Neutrophils # Man Monocytes # (Manual) PT INR APTT 62.1 H* ABG pO2 ABG HCO3 ABG O2 Saturation ABG Base Excess ABG Hemoglobin Oxyhemoglobin Sodium Potassium Chloride Carbon Dioxide BUN Creatinine Glucose POC Glucose Hemoglobin A1c Lactic Acid Phosphorus Magnesium Total Bilirubin Direct Bilirubin AST ALT Alkaline Phosphatase Total Creatine Kinase Troponin T Albumin Triglycerides Cholesterol HDL Cholesterol Urine Creatinine Urine Total Protein Salicylates Acetaminophen
[2018-11-30] MEDS: CORDARONE 900 MG in D5W 482 ML IV SCH (12:30)
[2018-11-30] MEDS: LOPRESSOR PO SCH ×2 (13:10→22:57)
[2018-11-30] MEDS: SODIUM CHLORIDE FLUSH SYRINGE 10 ML IV SCH ×2 (13:19→22:56)
--- NOTE | 2018-11-30 13:44 | Progress Note ---
Assessment and Plan Assessment and plan: Hyperosmolar hyperglycemic state (HHS) in a newly diagnosed Diabetes-new onset -Patient was admitted to the ICU on insulin drip, now off Insulin drip -Continue serial BMP level monitoring -Cont. Novolin 70/30 Diabetes mellitus type 2-new onset Acute respiratory failure with hypoxia -Continue oxygen supplementation as needed Sepsis -CT abd/pelvis showed generalized bronchiectasis -Blood cultures pending Vtach s/p shocked 8 tiemes by AICD, as per interrogation, notes in paper chart Cont. 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 Hernandez Consulted Dr. 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 - labs ordered Acute metabolic encephalopathy -Head CT scan negative -We'll monitor clinically Elevated troponin -Probably secondary to demand ischemia due to acute process -We'll continue serial troponin and EKG monitoring EDGARDO -Probably vasomotor nephropathy due to dehydration -On IV fluid, will monitor creatinine level Consult Nephrology Electrolyte abnormalities (hyperkalemia and hypermagnesemia) -We will hydrate patient and monitor levels Abnormal LFT -Probably due to acute process -CT abd/pelvis negative for liver pathology -We'll monitor levels Hypertension -Stable -On when necessary hydralazine Cardiomyopathy with EF of 20-25% -Status post AICD placement -No acute exacerbation GERD -On famotidine DVT prophylaxis with heparin Partient has systemic sclerosis, 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 The aggregate critical care time was [32] minutes. This time is in addition to time spent performing reported procedures but includes the following: [x] Data Review and interpretation [x] Patient assessment and monitoring of vital signs [x] Documentation [x] Medication orders and management History Interval history: No new issues overnight Hospitalist Physical - Constitutional Vitals: Temp Pulse Resp BP Pulse Ox 98.4 F 92 H 33 H 138/75 96 11/30/18 12:00 11/30/18 13:21 11/30/18 13:21 11/30/18 13:21 11/30/18 13:21 General appearance: Present: no acute distress - EENT Eyes: Present: PERRL, EOM intact ENT: hearing intact, clear oral mucosa, dentition normal - Neck Neck: Present: supple, normal ROM - Respiratory Respiratory effort: normal Respiratory: bilateral: CTA - Cardiovascular Rhythm: regular Heart Sounds: Present: S1 & S2. Absent: gallop, rub - Extremities Extremities: no ischemia, No edema, Full ROM - Abdominal General gastrointestinal: soft, non-tender, non-distended, normal bowel sounds - Integumentary Integumentary: Present: clear, warm, dry - Neurologic Neurologic: CNII-XII intact, moves all extremities Results - Labs CBC & Chem 7: 11/30/18 09:40 11/30/18 07:18 Labs: Laboratory Last Values WBC 28.8 K/mm3 (4.5-11.0) H 11/30/18 09:40 RBC 6.58 M/mm3 (3.65-5.03) H 11/30/18 09:40 Hgb 18.2 gm/dl (10.1-14.3) H 11/30/18 09:40 Hct 57.2 % (30.3-42.9) H* D 11/30/18 09:40 MCV 87 fl (79-97) 11/30/18 09:40 MCH 28 pg (28-32) 11/30/18 09:40 MCHC 32 % (30-34) 11/30/18 09:40 RDW 19.3 % (13.2-15.2) H 11/30/18 09:40 Plt Count 202 K/mm3 (140-440) 11/30/18 09:40 Lymph % (Auto) 6.3 % (13.4-35.0) L 11/28/18 01:01 Dix[place] % (Auto) 6.1 % (0.0-7.3) 11/28/18 01:01 Eos % (Auto) 0.0 % (0.0-4.3) 11/28/18 01:01 Baso % (Auto) 0.4 % (0.0-1.8) 11/28/18 01:01 Lymph # 0.9 K/mm3 (1.2-5.4) L 11/28/18 01:01 [place]ie # 0.9 K/mm3 (0.0-0.8) H 11/28/18 01:01 Eos # 0.0 K/mm3 (0.0-0.4) 11/28/18 01:01 Baso # 0.1 K/mm3 (0.0-0.1) 11/28/18 01:01 Add Manual Diff Complete 11/29/18 05:55 Total Counted 100 11/29/18 05:55 Seg Neutrophils % 87.2 % (40.0-70.0) H 11/28/18 01:01 Seg Neuts % (Manual) 93.0 % (40.0-70.0) H 11/29/18 05:55 0 % 11/29/18 05:55 4.0 % (13.4-35.0) L 11/29/18 05:55 Reactive Lymphs % (Man) 0 % 11/29/18 05:55 3.0 % (0.0-7.3) 11/29/18 05:55 0 % (0.0-4.3) 11/29/18 05:55 0 % (0.0-1.8) 11/29/18 05:55 0 % 11/29/18 05:55 0 % 11/29/18 05:55 0 % 11/29/18 05:55 0 % 11/29/18 05:55 Nucleated RBC % Not Reportable 11/29/18 05:55 Seg Neutrophils # 13.2 K/mm3 (1.8-7.7) H 11/28/18 01:01 Seg Neutrophils # Man 27.6 K/mm3 (1.8-7.7) H 11/29/18 05:55 Band Neutrophils # 0.0 K/mm3 11/29/18 05:55 1.2 K/mm3 (1.2-5.4) 11/29/18 05:55 Abs React Lymphs (Man) 0.0 K/mm3 11/29/18 05:55 0.9 K/mm3 (0.0-0.8) H 11/29/18 05:55 0.0 K/mm3 (0.0-0.4) 11/29/18 05:55 0.0 K/mm3 (0.0-0.1) 11/29/18 05:55 0.0 K/mm3 11/29/18 05:55 0.0 K/mm3 11/29/18 05:55 0.0 K/mm3 11/29/18 05:55 Blast Cells # 0.0 K/mm3 11/29/18 05:55 WBC Morphology Not Reportable 11/29/18 05:55 Hypersegmented Neuts Not Reportable 11/29/18 05:55 Hyposegmented Neuts Not Reportable 11/29/18 05:55 Hypogranular Neuts Not Reportable 11/29/18 05:55 Not Reportable 11/29/18 05:55 Not Reportable 11/29/18 05:55 Not Reportable 11/29/18 05:55 Not Reportable 11/29/18 05:55 Not Reportable 11/29/18 05:55 Not Reportable 11/29/18 05:55 Consistent w auto 11/29/18 05:55 Not Reportable 11/29/18 05:55 Plt Clumps, EDTA Not Reportable 11/29/18 05:55 Not Reportable 11/29/18 05:55 Not Reportable 11/29/18 05:55 Not Reportable 11/29/18 05:55 Plt Morphology Comment Not Reportable 11/29/18 05:55 RBC Morphology Normal 11/29/18 05:55 Dimorphic RBCs Not Reportable 11/29/18 05:55 Not Reportable 11/29/18 05:55 Not Reportable 11/29/18 05:55 Not Reportable 11/29/18 05:55 Not Reportable 11/29/18 05:55 Not Reportable 11/29/18 05:55 Not Reportable 11/29/18 05:55 Not Reportable 11/29/18 05:55 Not Reportable 11/29/18 05:55 Not Reportable 11/29/18 05:55 Not Reportable 11/29/18 05:55 Not Reportable 11/29/18 05:55 Not Reportable 11/29/18 05:55 Not Reportable 11/29/18 05:55 Not Reportable 11/29/18 05:55 Not Reportable 11/29/18 05:55 Not Reportable 11/29/18 05:55 Not Reportable 11/29/18 05:55 Not Reportable 11/29/18 05:55 Not Reportable 11/29/18 05:55 Acanthocytes (Spur) Not Reportable 11/29/18 05:55 Rouleaux Not Reportable 11/29/18 05:55 Not Reportable 11/29/18 05:55 Not Reportable 11/29/18 05:55 Not Reportable 11/29/18 05:55 Not Reportable 11/29/18 05:55 Hem Pathologist Commnt No 11/29/18 05:55 PT 15.6 Sec. (12.2-14.9) H 11/28/18 01:01 INR 1.27 (0.87-1.13) H 11/28/18 01:01 APTT 62.1 Sec. (24.2-36.6) H* 11/30/18 11:24 ABG pH 7.414 pH Units (7.350-7.450) 11/28/18 01:01 ABG pCO2 48.8 mm Hg 11/28/18 01:01 ABG pO2 65.7 mm Hg (80.0-90.0) L 11/28/18 01:01 ABG HCO3 30.5 mmol/L (20.0-26.0) H 11/28/18 01:01 ABG O2 Saturation 91.3 % (95.0-99.0) L 11/28/18 01:01 ABG O2 Content 22.2 (0.0-44) 11/28/18 01:01 ABG Base Excess 4.6 mmol/L (-2.0-3.0) H 11/28/18 01:01 ABG Hemoglobin 18.0 gm/dl (12.0-16.0) H 11/28/18 01:01 ABG Carboxyhemoglobin 3.1 % (0.0-5.0) 11/28/18 01:01 ABG Methemoglobin 0.5 % (0.0-1.5) 11/28/18 01:01 VBG pH 7.414 (7.320-7.420) 11/28/18 01:01 88.0 % (95.0-99.0) L 11/28/18 01:01 21 % 11/28/18 01:01 Sodium 150 mmol/L (137-145) H 11/30/18 07:18 Potassium 4.8 mmol/L (3.6-5.0) 11/30/18 07:18 Chloride 110.3 mmol/L (98-107) H 11/30/18 07:18 Carbon Dioxide 20 mmol/L (22-30) L 11/30/18 07:18 25 mmol/L 11/30/18 07:18 BUN 17 mg/dL (7-17) 11/30/18 07:18 1.0 mg/dL (0.7-1.2) 11/30/18 07:18 Estimated GFR > 60 ml/min 11/30/18 07:18 17 % 11/30/18 07:18 Glucose 149 mg/dL (65-100) H 11/30/18 07:18 POC Glucose 242 (70-105) H 11/30/18 12:17 12.5 % (4-6) H 11/28/18 01:01 Lactic Acid 5.00 mmol/L (0.7-2.0) H* 11/28/18 15:14 Calcium 9.3 mg/dL (8.4-10.2) 11/30/18 07:18 Phosphorus 3.30 mg/dL (2.5-4.5) 11/30/18 07:18 Magnesium 3.20 mg/dL (1.7-2.3) H 11/30/18 07:18 3.70 mg/dL (0.1-1.2) H 11/30/18 07:18 1.3 mg/dL (0-0.2) H 11/28/18 01:01 1.1 mg/dL 11/28/18 01:01 AST 480 units/L (5-40) H 11/30/18 07:18 ALT 213 units/L (7-56) H 11/30/18 07:18 258 units/L (35-129) H 11/30/18 07:18 30.0 umol/L (25-60) 11/28/18 01:01 228 units/L (30-135) H 11/28/18 01:01 0.030 ng/mL (0.00-0.029) H D 11/28/18 07:50 7.6 g/dL (6.3-8.2) 11/30/18 07:18 3.4 g/dL (3.9-5) L 11/30/18 07:18 0.8 % 11/30/18 07:18 Triglycerides 356 mg/dL (2-149) H 11/28/18 01:01 Cholesterol 200 mg/dL (50-199) H 11/28/18 01:01 125 mg/dL (50-130) 11/28/18 01:01 39 mg/dL (40-59) L 11/28/18 01:01 5.12 % 11/28/18 01:01 TSH 0.288 mlU/mL (0.270-4.200) 11/28/18 01:01 HCG, Quant < 2 mIU/mL (0-4) 11/28/18 01:01 Straw (Yellow) 11/28/18 00:37 Clear (Clear) 11/28/18 00:37 7.0 (5.0-7.0) 11/28/18 00:37 Ur Specific [place] 1.023 (1.003-1.030) 11/28/18 00:37 30 mg/dl mg/dL (Negative) 11/28/18 00:37 >=500 mg/dL (Negative) 11/28/18 00:37 Tr mg/dL (Negative) 11/28/18 00:37 Sm (Negative) 11/28/18 00:37 Neg (Negative) 11/28/18 00:37 Neg (Negative) 11/28/18 00:37 < 2.0 mg/dL (<2.0) 11/28/18 00:37 Ur Leukocyte Esterase Neg (Negative) 11/28/18 00:37 < 1.0 /HPF (0.0-6.0) 11/28/18 00:37 1.0 /HPF (0.0-6.0) 11/28/18 00:37 None seen (None Seen) 11/29/18 13:40 117.4 mg/dL (0.1-20.0) H 11/29/18 13:40 53 mmol/L 11/29/18 13:40 120 mg/dL (5-11.8) H 11/29/18 13:40 Urine HCG, Qual Negative (Negative) 11/28/18 Unknown Salicylates < 0.3 mg/dL (2.8-20.0) L 11/28/18 01:01 Presumptive negative 11/28/18 00:37 Presumptive negative 11/28/18 00:37 Acetaminophen < 5.0 ug/mL (10.0-30.0) L 11/28/18 01:01 Ur Barbiturates Screen Presumptive negative 11/28/18 00:37 Ur Phencyclidine Scrn Presumptive negative 11/28/18 00:37 Ur Amphetamines Screen Presumptive negative 11/28/18 00:37 U Benzodiazepines Scrn Presumptive negative 11/28/18 00:37 Presumptive negative 11/28/18 00:37 U Marijuana (THC) Screen Presumptive negative 11/28/18 00:37 Disclamer 11/28/18 00:37 Plasma/Serum Alcohol < 0.01 % (0-0.07) 11/28/18 01:01 Blood Type B POSITIVE 11/28/18 01:01 Antibody Screen Negative 11/28/18 01:01 Active Medications - Current Medications Current Medications: Generic Name Dose Route Start Last Admin Trade Name Freq PRN Reason Stop Dose Admin Acetaminophen 650 mg 11/28/18 03:02 Tylenol PO Q4H PRN Pain MILD(1-3)/Fever >100.5/TURPIN Alprazolam 0.25 mg 11/30/18 01:09 11/30/18 01:21 Xanax PO 0.25 mg Q8H PRN Administration Anxiety Amitriptyline HCl 25 mg 11/29/18 22:00 11/29/18 21:57 Elavil PO 25 mg HS VIOLA Administration Aspirin 81 mg 11/29/18 10:00 11/30/18 09:32 Baby Aspirin PO 81 mg QDAY VIOLA Administration Dextrose 0 ml 11/28/18 02:19 D50w (25gm) Syringe IV PRN PRN Hypoglycemia Fluticasone Propionate 50 mcg 11/29/18 10:00 11/30/18 09:33 Flonase NS 50 mcg BID VIOLA Administration Hydralazine HCl 10 mg 11/28/18 03:41 Apresoline IV Q6HR PRN Blood Pressure Hydrophilic Ointment 1 applic 11/30/18 11:55 Vaseline Lip Therapy TP DIRECT PRN DRY LIPS Amiodarone HCl 900 mg/ 500 mls @ 33.333 mls/hr 11/28/18 15:00 11/30/18 12:30 Dextrose IV 1 mg/min DIRECT VIOLA 33.333 mls/hr Administration Protocol 1 MG/MIN Argatroban 250 mg/ Sodium 250 mls @ 3.682 mls/hr 11/29/18 13:00 11/29/18 18:01 Chloride IV 0.5 mcg/kg/min TITR VIOLA 3.682 mls/hr Titration Protocol 0.5 MCG/KG/MIN Insulin Human Isoph/Insulin Regular 10 unit 11/29/18 11:00 11/30/18 09:31 Humulin 70/30 SUB-Q 10 unit BIDDIAB VIOLA Administration Insulin Human Lispro 0 unit 11/30/18 09:00 11/30/18 13:10 Humalog SUB-Q 4 unit ACHS VIOLA Administration Protocol Metoprolol Tartrate 25 mg 11/30/18 14:00 11/30/18 13:10 Lopressor PO 25 mg Q8HR VIOLA Administration Montelukast Sodium 10 mg 11/29/18 18:00 11/29/18 17:31 Singulair PO 10 mg QPM VIOLA Administration Morphine Sulfate 2 mg 11/28/18 03:02 Morphine IV Q4H PRN Pain, Moderate (4-6) Nitroglycerin 0.75 inch 11/29/18 14:00 11/30/18 13:10 Nitro-Bid 2% TP 0.75 inch QIDNTG VIOLA Administration Protocol Ondansetron HCl 4 mg 11/28/18 03:02 Zofran IV Q8H PRN Nausea And Vomiting Pantoprazole Sodium 40 mg 11/29/18 10:00 11/30/18 09:32 Protonix PO 40 mg QDAY VIOLA Administration Pentoxifylline 400 mg 11/29/18 13:00 11/30/18 09:32 Trental PO 400 mg Q12HR VIOLA Administration Prednisone 50 mg 11/29/18 10:00 11/30/18 09:32 Deltasone PO 50 mg QDAY VIOLA Administration Sodium Chloride 10 ml 11/28/18 10:00 11/30/18 13:19 Sodium Chloride Flush Syringe 10 Ml IV 10 ml BID VIOLA Administration Sodium Chloride 10 ml 11/28/18 03:02 Sodium Chloride Flush Syringe 10 Ml IV PRN PRN LINE FLUSH Nutrition/Malnutrition Assess - Dietary Evaluation Nutrition/Malnutrition Findings: Nutrition Notes Start: 11/29/18 14:34 Freq: Status: Active Protocol: Document 11/29/18 14:35 LM (Rec: 11/29/18 14:40 LM [id number]) Nutrition Notes Need for Assessment generated from: Education Initial or Follow up Brief Note Current Diagnosis Diabetes,Hypertension Subjective/Other Information Consult for DM education. #1 Nutrition Diagnosis Food and nutrition-related knowledge deficit Etiology No prior DM diet education As Evidenced by Signs and Symptoms Pt statement of needing DM diet education, HGB A1C of 12. 5, BG 203 Nutrition Intervention Teaching Recipient Patient Learning Readiness Good Teaching Methods Discussion,Handout Education Handouts Provided Carbohydrate Counting for People with Diabetes RD phone number provided Yes Patient aware of follow up options Yes Revisit per MD consult or patient Sign Off request:
[2018-11-30] MEDS: SINGULAIR PO SCH (17:55)
--- NOTE | 2018-11-30 19:16 | Progress Note ---
Assessment and Plan - Patient Problems (1) Acute kidney injury Current Visit: Yes Status: Acute Plan to address problem: Kidney function improving. Continue volume repletion. Follow up electrolytes and renal function (2) Hyperkalemia Current Visit: Yes Status: Acute Plan to address problem: Hyperkalemia on presentation improved with medical management. Follow-up electrolytes (3) Hypernatremia Current Visit: Yes Status: Acute Plan to address problem: Hypernatremia secondary to free water losses. Replace free water and follow-up sodium (4) Hyperosmolar hyperglycemic coma due to diabetes mellitus without ketoacidosis Current Visit: Yes Status: Acute Plan to address problem: Steroid induced hyperglycemia/newly diagnosed type 2 diabetes mellitus. Blood sugar control by primary attending (5) Acrocyanosis Current Visit: Yes Status: Acute Plan to address problem: Etiology uncertain. May be related to scleroderma. Arterial Duplex shows that Diffuse peripheral vascular disease in both lower extremities with occlusive disease of the left anterior tibial and dorsalis pedis arteries. Distal disease in the left hand. Vascular Surgery on board and Vacuum Repairer is ruling out embolic disease. Patient is on Direct Thrombin inhibitor being managed by real estate marketing coordinator pending HIT antibody. (6) Transaminasemia Current Visit: Yes Status: Acute Plan to address problem: Probable ischemic hepatitis. 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 Monitor for signs of volume overload with volume repletion Subjective Date of service: 11/30/18 Principal diagnosis: thrombosis, acute kidney injury, electrolyte abnormalities Interval history: Patient seen lying in bed. Still complains of pain in her feet and hands. Family member at the bedside. No nausea or vomiting Objective - Exam Narrative Exam: Obese young -Turkmen female lying in bed in no acute distress HEENT: NCAT, pink oral mucous membrane Neck: Supple, no venous distention CVS: S1S2 RRR with no murmur, rub or gallop Chest: Clear to auscultation Abdomen: obese, soft, nontender, no organomegaly, bowel sounds are present Extremities: No edema, cool extremities with cyanotic toes, and cyanotic left middle distal phalanx and nail bed Neuro: Awake, alert no focal deficits - Vital Signs Vital signs: Vital Signs - 12hr 11/30/18 11/30/1819 07:21 07:31 07:41 Temperature Pulse Rate 102 H 110 H 94 H Respiratory 60 H 57 H 47 H Rate Blood Pressure 79/51 104/81 104/81 O2 Sat by Pulse 96 Oximetry 11/30/18 11/30/18 11/30/18 07:51 08:00 08:11 Temperature 98.4 F Pulse Rate 98 H 95 H 97 H Respiratory 41 H 53 H 43 H Rate Blood Pressure 104/81 99/81 99/81 O2 Sat by Pulse 93 98 98 Oximetry 11/30/18 11/30/18 11/30/18 08:21 08:31 08:41 Temperature Pulse Rate 108 H 105 H 98 H Respiratory 46 H 62 H 52 H Rate Blood Pressure 99/81 122/63 122/63 O2 Sat by Pulse 94 96 97 Oximetry 11/30/18 11/30/18 11/30/18 08:51 09:01 09:11 Temperature Pulse Rate 97 H 103 H 103 H Respiratory 29 H 31 H 55 H Rate Blood Pressure 122/63 122/63 122/63 O2 Sat by Pulse 96 Oximetry 11/30/18 11/30/18 11/30/18 09:21 09:31 09:41 Temperature Pulse Rate 98 H 87 97 H Respiratory 18 44 H 53 H Rate Blood Pressure 122/63 161/124 172/138 O2 Sat by Pulse 80 L 97 92 Oximetry 11/30/18 11/30/18 11/30/18 09:42 09:50 09:56 Temperature Pulse Rate 98 H 95 H 91 H Respiratory 30 H Rate Blood Pressure 172/138 143/117 O2 Sat by Pulse 99 Oximetry 11/30/18 11/30/18 11/30/18 10:01 10:11 10:21 Temperature Pulse Rate 98 H 88 82 Respiratory 61 H 59 H 58 H Rate Blood Pressure 162/89 162/89 162/89 O2 Sat by Pulse 95 94 95 Oximetry 11/30/18 11/30/18 11/30/18 10:30 10:41 10:51 Temperature Pulse Rate 91 H 96 H 97 H Respiratory 46 H 37 H 56 H Rate Blood Pressure 162/89 149/89 149/89 O2 Sat by Pulse 94 95 95 Oximetry 11/30/18 11/30/18 11/30/18 11:01 11:11 11:21 Temperature Pulse Rate 95 H 98 H 93 H Respiratory 55 H 53 H 39 H Rate Blood Pressure 121/85 121/85 121/85 O2 Sat by Pulse 100 93 95 Oximetry 11/30/18 11/30/18 11/30/18 11:30 11:41 11:51 Temperature Pulse Rate 99 H 90 90 Respiratory 37 H 17 39 H Rate Blood Pressure 123/87 123/87 123/87 O2 Sat by Pulse 87 95 97 Oximetry 11/30/18 11/30/18 11/30/18 12:00 12:11 12:21 Temperature 98.4 F Pulse Rate 89 94 H 99 H Respiratory 23 57 H 56 H Rate Blood Pressure 115/89 115/89 115/89 O2 Sat by Pulse 99 93 95 Oximetry 11/30/18 11/30/18 11/30/18 12:31 12:41 12:51 Temperature Pulse Rate 96 H 99 H 94 H Respiratory 52 H 42 H 55 H Rate Blood Pressure 131/83 131/83 131/83 O2 Sat by Pulse 95 94 96 Oximetry 11/30/18 11/30/18 11/30/18 13:01 13:10 13:11 Temperature Pulse Rate 117 H 113 H 100 H Respiratory 51 H 47 H Rate Blood Pressure 138/75 138/75 138/75 O2 Sat by Pulse 94 95 Oximetry 11/30/18 11/30/18 11/30/18 13:21 13:31 13:41 Temperature Pulse Rate 92 H 110 H 92 H Respiratory 33 H 58 H 58 H Rate Blood Pressure 138/75 121/81 121/81 O2 Sat by Pulse 96 99 Oximetry 11/30/18 11/30/18 11/30/18 13:51 14:01 14:11 Temperature Pulse Rate 89 81 71 Respiratory 56 H 57 H 17 Rate Blood Pressure 121/81 140/84 121/81 O2 Sat by Pulse 97 Oximetry 11/30/18 11/30/18 11/30/18 14:21 14:31 14:41 Temperature Pulse Rate 70 75 70 Respiratory 56 H 43 H 56 H Rate Blood Pressure 121/81 121/81 112/82 O2 Sat by Pulse 97 100 96 Oximetry 11/30/18 11/30/18 11/30/18 14:44 14:51 15:01 Temperature Pulse Rate 70 70 Respiratory 40 H 16 Rate Blood Pressure 112/82 112/82 O2 Sat by Pulse 99 Oximetry 11/30/18 11/30/18 11/30/18 15:11 15:21 15:31 Temperature Pulse Rate 70 70 70 Respiratory 11 L 35 H 42 H Rate Blood Pressure 112/82 71/39 71/39 O2 Sat by Pulse Oximetry 11/30/18 11/30/18 11/30/18 15:41 15:51 16:01 Temperature Pulse Rate 70 70 70 Respiratory 34 H 16 40 H Rate Blood Pressure 71/39 71/39 71/39 O2 Sat by Pulse Oximetry 11/30/18 11/30/18 11/30/18 16:11 16:21 16:31 Temperature Pulse Rate 70 70 70 Respiratory 58 H 55 H 57 H Rate Blood Pressure 137/97 137/97 137/97 O2 Sat by Pulse Oximetry 11/30/18 11/30/18 11/30/18 16:41 16:51 17:00 Temperature Pulse Rate 70 70 70 Respiratory 19 52 H 16 Rate Blood Pressure 89/34 76/55 O2 Sat by Pulse 100 100 Oximetry 11/30/18 11/30/18 11/30/18 17:10 17:21 17:31 Temperature Pulse Rate 70 70 70 Respiratory 13 23 18 Rate Blood Pressure 128/78 128/78 128/78 O2 Sat by Pulse 100 100 Oximetry 11/30/18 18:22 Temperature Pulse Rate 70 Respiratory Rate Blood Pressure 89/66 O2 Sat by Pulse Oximetry - Lab 12/02/18 04:45 12/02/18 04:45 Most recent lab results ABG pH 7.414 pH Units (7.350-7.450) 11/28/18 01:01 ABG pCO2 48.8 mm Hg 11/28/18 01:01 ABG pO2 65.7 mm Hg (80.0-90.0) L 11/28/18 01:01 ABG HCO3 30.5 mmol/L (20.0-26.0) H 11/28/18 01:01 ABG O2 Saturation 91.3 % (95.0-99.0) L 11/28/18 01:01 Calcium 9.3 mg/dL (8.4-10.2) 11/30/18 07:18 Phosphorus 3.30 mg/dL (2.5-4.5) 11/30/18 07:18 Magnesium 3.20 mg/dL (1.7-2.3) H 11/30/18 07:18 117.4 mg/dL (0.1-20.0) H 11/29/18 13:40 53 mmol/L 11/29/18 13:40 120 mg/dL (5-11.8) H 11/29/18 13:40 Medications & Allergies - Medications Allergies/Adverse Reactions: Allergies lisinopril Adverse Reaction (Severe, Verified 12/17/13 19:00) SORE THROAT;PERSISTENT COUGH Home Medications: Home Medications Medication Instructions Recorded Confirmed Last Taken Type Aspirin [Aspirin BABY CHEW TAB] 81 mg PO QDAY 11/28/18 11/29/18 11/26/18 History Fluticasone [Flonase] 1 spray NS BID 11/28/18 11/28/18 Unknown History Furosemide [Lasix TAB] 40 mg PO BID 11/28/18 11/28/18 Unknown History Ibuprofen [Motrin] 600 mg PO Q6H PRN 11/28/18 11/28/18 Unknown History Montelukast [Singulair] 10 mg PO QPM 11/28/18 11/28/18 Unknown History Mycophenolate [Cellcept] 500 mg PO BID 11/28/18 11/28/18 Unknown History Mycophenolate [Cellcept] 500 mg PO BID PRN MDD 2 TABS 11/28/18 11/28/18 Unknown History Pantoprazole [Protonix] 40 mg PO QDAY 11/28/18 11/28/18 Unknown History Sacubitril/Valsartan [Entresto 1 each PO BID 11/28/18 11/28/18 Unknown History 49-51 mg] predniSONE [Deltasone] 50 mg PO QDAY 11/28/18 11/28/18 Unknown History raNITIdine HCl [Zantac] 150 mg PO BID 11/28/18 11/28/18 Unknown History Amitriptyline [Elavil] 25 mg PO HS 11/29/18 11/29/18 11/26/18 History Aspirin [Adult Aspirin] 81 mg PO ONCE 11/29/18 11/29/18 11/26/18 History Entresto 49-51 mg 49 mg PO BID 11/29/18 11/29/18 11/26/18 History HYDROcodone/APAP 5-325 5 mg PO Q6HR PRN 11/29/18 11/29/18 Unknown History Active Medications: Generic Name Dose Route Start Last Admin Trade Name Freq PRN Reason Stop Dose Admin Acetaminophen 650 mg 11/28/18 03:02 Tylenol PO Q4H PRN Pain MILD(1-3)/Fever >100.5/TURPIN Alprazolam 0.25 mg 11/30/18 01:09 11/30/18 01:21 Xanax PO 0.25 mg Q8H PRN Administration Anxiety Amitriptyline HCl 25 mg 11/29/18 22:00 11/29/18 21:57 Elavil PO 25 mg HS VIOLA Administration Aspirin 81 mg 11/29/18 10:00 11/30/18 09:32 Baby Aspirin PO 81 mg QDAY VIOLA Administration Dextrose 0 ml 11/28/18 02:19 D50w (25gm) Syringe IV PRN PRN Hypoglycemia Fluticasone Propionate 50 mcg 11/29/18 10:00 11/30/18 09:33 Flonase NS 50 mcg BID VIOLA Administration Hydralazine HCl 10 mg 11/28/18 03:41 Apresoline IV Q6HR PRN Blood Pressure Hydrophilic Ointment 1 applic 11/30/18 11:55 Vaseline Lip Therapy TP DIRECT PRN DRY LIPS Amiodarone HCl 900 mg/ 500 mls @ 33.333 mls/hr 11/28/18 15:00 11/30/18 12:30 Dextrose IV 1 mg/min DIRECT VIOLA 33.333 mls/hr Administration Protocol 1 MG/MIN Argatroban 250 mg/ Sodium 250 mls @ 3.682 mls/hr 11/29/18 13:00 11/29/18 18:01 Chloride IV 0.5 mcg/kg/min TITR VIOLA 3.682 mls/hr Titration Protocol 0.5 MCG/KG/MIN Insulin Human Isoph/Insulin Regular 10 unit 11/29/18 11:00 11/30/18 17:53 Humulin 70/30 SUB-Q 10 unit BIDDIAB VIOLA Administration Insulin Human Lispro 0 unit 11/30/18 09:00 11/30/18 17:55 Humalog SUB-Q 2 unit ACHS VIOLA Administration Protocol Metoprolol Tartrate 25 mg 11/30/18 14:00 11/30/18 13:10 Lopressor PO 25 mg Q8HR VIOLA Administration Montelukast Sodium 10 mg 11/29/18 18:00 11/30/18 17:55 Singulair PO 10 mg QPM VIOLA Administration Morphine Sulfate 2 mg 11/28/18 03:02 Morphine IV Q4H PRN Pain, Moderate (4-6) Nitroglycerin 0.75 inch 11/29/18 14:00 11/30/18 18:22 Nitro-Bid 2% TP Not Given QIDNTG [facility] Protocol Ondansetron HCl 4 mg 11/28/18 03:02 Zofran IV Q8H PRN Nausea And Vomiting Pantoprazole Sodium 40 mg 11/29/18 10:00 11/30/18 09:32 Protonix PO 40 mg QDAY [facility] Administration Pentoxifylline 400 mg 11/29/18 13:00 11/30/18 09:32 Trental PO 400 mg Q12HR [facility]OLA Administration Prednisone 50 mg 11/29/18 10:00 11/30/18 09:32 Deltasone PO 50 mg QDAY [facility] Administration Sodium Chloride 10 ml 11/28/18 10:00 11/30/18 13:19 Sodium Chloride Flush Syringe 10 Ml IV 10 ml BID [facility]OL[facility] Administration Sodium Chloride 10 ml 11/28/18 03:02 Sodium Chloride Flush Syringe 10 Ml IV PRN PRN LINE FLUSH
[2018-11-30] MEDS: ELAVIL PO SCH (22:55)
[2018-11-30] MEDS: MORPHINE IV PRN (22:59)
[2018-12-01] MEDS: ARGATROBAN 250 MG in NACL 0.9% 250ML 247.5 ML IV SCH (02:17)
[2018-12-01] MEDS: CORDARONE 900 MG in D5W 482 ML IV SCH ×2 (02:17→16:00)
[2018-12-01 05:42] LABS: Hematocrit 54.2 % (30.3-42.9); Hemoglobin 17.8 gm/dl (10.1-14.3); Mean Corpuscular HGB Conc 33 % (30-34); Mean Corpuscular Volume 86 fl (79-97); Red Cell Distribution Width 19.2 % (13.2-15.2)
[2018-12-01 06:35] LABS: Basophils % (Manual) 0 % (0.0-1.8); Eosinophils % (Manual) 0 % (0.0-4.3); Total Cells Counted 100
[2018-12-01 06:36] LABS: Anisocytosis 1+; Platelet Estimate Consistent w Auto
[2018-12-01 06:39] LABS: Platelet Count 155 K/mm3 (140-440)
--- NOTE | 2018-12-01 08:06 | Hem/Onc Progress Note ---
Assessment and Plan Peripheral extremities both lower and left upper extremity thromboembolic disease. This may be related to her generalized disease etiology versus rheumatology issue versus embolic phenomena. I had discussed with Cardiology, transthoracic echo has been done to see if there is any source of thrombus. If source is found, then oral anticoagulation is an option. At this time, the patient is on argatroban. There is a question if this is HIT. However, the platelet count is not low. HIT test has been ordered. 1. Elevated bilirubin. 2. Electrolyte imbalance. 3. Arterial thrombus, on anticoagulation. 4. Diabetic ketoacidosis. 5. Hypertension. 6. Ischemic cardiomyopathy with low ejection fraction. 7. Respiratory failure. 8. Sepsis, elevated troponin /CPK. I will follow the patient during inpatient stay and then in the clinic setting. The cause of thromboembolism is not clear. White cell count is high. There is a question if this has any relation. The Cardiology is planning trans- endoscopic echocardiogram if needed. echo done - report pending - Patient Problems (1) Ischemia Current Visit: Yes Status: Acute Subjective Date of service: 12/01/18 Principal diagnosis: leg poor circulation Interval history: says doing ok - c/o toes and left hand pain Objective - Exam Narrative Exam: Pain - hand and leg General appearance pain Performance status limited self care Eyes - no icterus ENT - no bleeding LNs cervical not palpable Neck - no LN Respiratory Normal Breath sounds - CTA CVS S1 S2 + Extremities normal temperature General GI Soft Rectal deferred female - deferred Skin warm Musculoskeletal moving extremitites - dark foot and left hand finger Neurologically awake - Constitutional Vitals: Last Vital Signs Temp 97.4 F L 12/01/18 03:48 Pulse 70 12/01/18 07:01 Resp 53 H 12/01/18 07:01 BP 123/49 12/01/18 07:01 Pulse Ox 98 12/01/18 07:01 - Labs Lab Results: Laboratory Results - last 24 hr 11/30/18 11/30/18 11/30/18 07:18 07:58 09:40 WBC 28.8 H RBC 6.58 H Hgb 18.2 H Hct 57.2 H* D MCV 87 MCH 28 MCHC 32 RDW 19.3 H Plt Count 202 Add Manual Diff Total Counted Seg Neuts % (Manual) Band Neutrophils % Lymphocytes % (Manual) Reactive Lymphs % (Man) Monocytes % (Manual) Eosinophils % (Manual) Basophils % (Manual) Metamyelocytes % Myelocytes % Promyelocytes % Blast Cells % Nucleated RBC % Seg Neutrophils # Man Band Neutrophils # Lymphocytes # (Manual) Abs React Lymphs (Man) Monocytes # (Manual) Eosinophils # (Manual) Basophils # (Manual) Metamyelocytes # Myelocytes # Promyelocytes # Blast Cells # WBC Morphology Hypersegmented Neuts Hyposegmented Neuts Hypogranular Neuts Smudge Cells Toxic Granulation Toxic Vacuolation Dohle Bodies Pelger-Huet Anomaly Rosalva Rods Platelet Estimate Clumped Platelets Plt Clumps, EDTA Large Platelets Giant Platelets Platelet Satelliting Plt Morphology Comment RBC Morphology Dimorphic RBCs Polychromasia Hypochromasia Poikilocytosis Anisocytosis Microcytosis Macrocytosis Spherocytes Pappenheimer Bodies Sickle Cells Target Cells Tear Drop Cells Ovalocytes Helmet Cells Garza-[place] Bodies [place] Raymond Cells Bite Cells Crenated Cell Elliptocytes Acanthocytes (Spur) Rouleaux Hemoglobin C Crystals Schistocytes Malaria parasites Dominic Bodies Hem Pathologist Commnt APTT POC ABG pH POC ABG pO2 POC ABG HCO3 POC ABG Total CO2 POC ABG O2 Sat POC ABG Base Excess FiO2 Sodium 150 H Potassium 4.8 Chloride 110.3 H Carbon Dioxide 20 L Anion Gap 25 BUN 17 Creatinine 1.0 Estimated GFR > 60 BUN/Creatinine Ratio 17 Glucose 149 H POC Glucose 190 H Calcium 9.3 Phosphorus 3.30 Magnesium 3.20 H Total Bilirubin 3.70 H AST 480 H ALT 213 H Alkaline Phosphatase 258 H Total Protein 7.6 Albumin 3.4 L Albumin/Globulin Ratio 0.8 11/30/18 11/30/18 11/30/18 11:24 12:17 16:22 WBC RBC Hgb Hct MCV MCH MCHC RDW Plt Count Add Manual Diff Total Counted Seg Neuts % (Manual) Band Neutrophils % Lymphocytes % (Manual) Reactive Lymphs % (Man) Monocytes % (Manual) Eosinophils % (Manual) Basophils % (Manual) Metamyelocytes % Myelocytes % Promyelocytes % Blast Cells % Nucleated RBC % Seg Neutrophils # Man Band Neutrophils # Lymphocytes # (Manual) Abs React Lymphs (Man) Monocytes # (Manual) Eosinophils # (Manual) Basophils # (Manual) Metamyelocytes # Myelocytes # Promyelocytes # Blast Cells # WBC Morphology Hypersegmented Neuts Hyposegmented Neuts Hypogranular Neuts Smudge Cells Toxic Granulation Toxic Vacuolation Dohle Bodies Pelger-Huet Anomaly Rosalva Rods Platelet Estimate Clumped Platelets Plt Clumps, EDTA Large Platelets Giant Platelets Platelet Satelliting Plt Morphology Comment RBC Morphology Dimorphic RBCs Polychromasia Hypochromasia Poikilocytosis Anisocytosis Microcytosis Macrocytosis Spherocytes Pappenheimer Bodies Sickle Cells Target Cells Tear Drop Cells Ovalocytes Helmet Cells Garza-[place] Bodies [place] Raymond Cells Bite Cells Crenated Cell Elliptocytes Acanthocytes (Spur) Rouleaux Hemoglobin C Crystals Schistocytes Malaria parasites Dominic Bodies Hem Pathologist Commnt APTT 62.1 H* POC ABG pH POC ABG pO2 POC ABG HCO3 POC ABG Total CO2 POC ABG O2 Sat POC ABG Base Excess FiO2 Sodium Potassium Chloride Carbon Dioxide Anion Gap BUN Creatinine Estimated GFR BUN/Creatinine Ratio Glucose POC Glucose 242 H 165 H Calcium Phosphorus Magnesium Total Bilirubin AST ALT Alkaline Phosphatase Total Protein Albumin Albumin/Globulin Ratio 11/30/18 11/30/18 12/01/18 20:06 21:32 05:32 WBC RBC Hgb Hct MCV MCH MCHC RDW Plt Count Add Manual Diff Total Counted Seg Neuts % (Manual) Band Neutrophils % Lymphocytes % (Manual) Reactive Lymphs % (Man) Monocytes % (Manual) Eosinophils % (Manual) Basophils % (Manual) Metamyelocytes % Myelocytes % Promyelocytes % Blast Cells % Nucleated RBC % Seg Neutrophils # Man Band Neutrophils # Lymphocytes # (Manual) Abs React Lymphs (Man) Monocytes # (Manual) Eosinophils # (Manual) Basophils # (Manual) Metamyelocytes # Myelocytes # Promyelocytes # Blast Cells # WBC Morphology Hypersegmented Neuts Hyposegmented Neuts Hypogranular Neuts Smudge Cells Toxic Granulation Toxic Vacuolation Dohle Bodies Pelger-Huet Anomaly Rosalva Rods Platelet Estimate Clumped Platelets Plt Clumps, EDTA Large Platelets Giant Platelets Platelet Satelliting Plt Morphology Comment RBC Morphology Dimorphic RBCs Polychromasia Hypochromasia Poikilocytosis Anisocytosis Microcytosis Macrocytosis Spherocytes Pappenheimer Bodies Sickle Cells Target Cells Tear Drop Cells Ovalocytes Helmet Cells Garza-[place] Bodies [place] Rings Claudio Cells Bite Cells Crenated Cell Elliptocytes Acanthocytes (Spur) Rouleaux Hemoglobin C Crystals Schistocytes Malaria parasites Dominic Bodies Hem Pathologist Commnt APTT 50.0 H POC ABG pH 7.410 POC ABG pO2 100 POC ABG HCO3 17.1 POC ABG Total CO2 18 POC ABG O2 Sat 98 POC ABG Base Excess -8 FiO2 32 Sodium Potassium Chloride Carbon Dioxide Anion Gap BUN Creatinine Estimated GFR BUN/Creatinine Ratio Glucose POC Glucose 146 H Calcium Phosphorus Magnesium Total Bilirubin AST ALT Alkaline Phosphatase Total Protein Albumin Albumin/Globulin Ratio 12/01/18 12/01/18 05:32 07:45 WBC 24.7 H RBC 6.30 H Hgb 17.8 H Hct 54.2 H MCV 86 MCH 28 MCHC 33 RDW 19.2 H Plt Count 155 Add Manual Diff Complete Total Counted 100 Seg Neuts % (Manual) 87.0 H Band Neutrophils % 0 Lymphocytes % (Manual) 10.0 L Reactive Lymphs % (Man) 0 Monocytes % (Manual) 3.0 Eosinophils % (Manual) 0 Basophils % (Manual) 0 Metamyelocytes % 0 Myelocytes % 0 Promyelocytes % 0 Blast Cells % 0 Nucleated RBC % 2.0 H Seg Neutrophils # Man 21.5 H Band Neutrophils # 0.0 Lymphocytes # (Manual) 2.5 Abs React Lymphs (Man) 0.0 Monocytes # (Manual) 0.7 Eosinophils # (Manual) 0.0 Basophils # (Manual) 0.0 Metamyelocytes # 0.0 Myelocytes # 0.0 Promyelocytes # 0.0 Blast Cells # 0.0 WBC Morphology Not Reportable Hypersegmented Neuts Not Reportable Hyposegmented Neuts Not Reportable Hypogranular Neuts Not Reportable Smudge Cells Not Reportable Toxic Granulation Not Reportable Toxic Vacuolation Not Reportable Dohle Bodies Not Reportable Pelger-Huet Anomaly Not Reportable Rosalva Rods Not Reportable Platelet Estimate Consistent w auto Clumped Platelets Not Reportable Plt Clumps, EDTA Not Reportable Large Platelets Not Reportable Giant Platelets Not Reportable Platelet Satelliting Not Reportable Plt Morphology Comment Not Reportable RBC Morphology Not Reportable Dimorphic RBCs Not Reportable Polychromasia Not Reportable Hypochromasia Not Reportable Poikilocytosis Not Reportable Anisocytosis 1+ Microcytosis Not Reportable Macrocytosis Not Reportable Spherocytes Not Reportable Pappenheimer Bodies Not Reportable Sickle Cells Not Reportable Target Cells Not Reportable Tear Drop Cells Not Reportable Ovalocytes Not Reportable Helmet Cells Not Reportable Garza-[place] Bodies Not Reportable [place] Rings Not Reportable Raymond Cells Not Reportable Bite Cells Not Reportable Crenated Cell Not Reportable Elliptocytes Not Reportable Acanthocytes (Spur) Not Reportable Rouleaux Not Reportable Hemoglobin C Crystals Not Reportable Schistocytes Not Reportable Malaria parasites Not Reportable Dominic Bodies Not Reportable Hem Pathologist Commnt No APTT POC ABG pH POC ABG pO2 POC ABG HCO3 POC ABG Total CO2 POC ABG O2 Sat POC ABG Base Excess FiO2 Sodium Potassium Chloride Carbon Dioxide Anion Gap BUN Creatinine Estimated GFR BUN/Creatinine Ratio Glucose POC Glucose 179 H Calcium Phosphorus Magnesium Total Bilirubin AST ALT Alkaline Phosphatase Total Protein Albumin Albumin/Globulin Ratio Medications & Allergies - Medications Allergies/Adverse Reactions: Allergies lisinopril Adverse Reaction (Severe, Verified 12/17/13 19:00) SORE THROAT;PERSISTENT COUGH Home Medications: Home Medications Medication Instructions Recorded Confirmed Last Taken Type Aspirin [Aspirin BABY CHEW TAB] 81 mg PO QDAY 11/28/18 11/29/18 11/26/18 History Fluticasone [Flonase] 1 spray NS BID 11/28/18 11/28/18 Unknown History Furosemide [Lasix TAB] 40 mg PO BID 11/28/18 11/28/18 Unknown History Ibuprofen [Motrin] 600 mg PO Q6H PRN 11/28/18 11/28/18 Unknown History Montelukast [Singulair] 10 mg PO QPM 11/28/18 11/28/18 Unknown History Mycophenolate [Cellcept] 500 mg PO BID 11/28/18 11/28/18 Unknown History Mycophenolate [Cellcept] 500 mg PO BID PRN MDD 2 TABS 11/28/18 11/28/18 Unknown History Pantoprazole [Protonix] 40 mg PO QDAY 11/28/18 11/28/18 Unknown History Sacubitril/Valsartan [Entresto 1 each PO BID 11/28/18 11/28/18 Unknown History 49-51 mg] predniSONE [Deltasone] 50 mg PO QDAY 11/28/18 11/28/18 Unknown History raNITIdine HCl [Zantac] 150 mg PO BID 11/28/18 11/28/18 Unknown History Amitriptyline [Elavil] 25 mg PO HS 11/29/18 11/29/18 11/26/18 History Aspirin [Adult Aspirin] 81 mg PO ONCE 11/29/18 11/29/18 11/26/18 History Entresto 49-51 mg 49 mg PO BID 11/29/18 11/29/18 11/26/18 History HYDROcodone/APAP 5-325 5 mg PO Q6HR PRN 11/29/18 11/29/18 Unknown History Active Medications: Generic Name Dose Route Start Last Admin Trade Name Freq PRN Reason Stop Dose Admin Acetaminophen 650 mg 11/28/18 03:02 Tylenol PO Q4H PRN Pain MILD(1-3)/Fever >100.5/TURPIN Alprazolam 0.25 mg 11/30/18 01:09 11/30/18 01:21 Xanax PO 0.25 mg Q8H PRN Administration Anxiety Amitriptyline HCl 25 mg 11/29/18 22:00 11/30/18 22:55 Elavil PO 25 mg HS VIOLA Administration Aspirin 81 mg 11/29/18 10:00 11/30/18 09:32 Baby Aspirin PO 81 mg QDAY VIOLA Administration Dextrose 0 ml 11/28/18 02:19 D50w (25gm) Syringe IV PRN PRN Hypoglycemia Fluticasone Propionate 50 mcg 11/29/18 10:00 11/30/18 22:58 Flonase NS 50 mcg BID VIOLA Administration Hydralazine HCl 10 mg 11/28/18 03:41 Apresoline IV Q6HR PRN Blood Pressure Hydrophilic Ointment 1 applic 11/30/18 11:55 Vaseline Lip Therapy TP DIRECT PRN DRY LIPS Amiodarone HCl 900 mg/ 500 mls @ 33.333 mls/hr 11/28/18 15:00 12/01/18 02:17 Dextrose IV 1 mg/min DIRECT VIOLA 33.333 mls/hr Administration Protocol 1 MG/MIN Argatroban 250 mg/ Sodium 250 mls @ 3.682 mls/hr 11/29/18 13:00 12/01/18 02:17 Chloride IV 0.5 mcg/kg/min TITR VIOLA 3.682 mls/hr Administration Protocol 0.5 MCG/KG/MIN Insulin Human Isoph/Insulin Regular 10 unit 11/29/18 11:00 11/30/18 17:53 Humulin 70/30 SUB-Q 10 unit BIDDIAB VIOLA Administration Insulin Human Lispro 0 unit 11/30/18 09:00 11/30/18 22:55 Humalog SUB-Q Not Given ACHS [facility] Protocol Metoprolol Tartrate 25 mg 11/30/18 14:00 11/30/18 22:57 Lopressor PO 25 mg Q8HR VIOLA Administration Montelukast Sodium 10 mg 11/29/18 18:00 11/30/18 17:55 Singulair PO 10 mg QPM VIOLA Administration Morphine Sulfate 2 mg 11/28/18 03:02 11/30/18 22:59 Morphine IV 2 mg Q4H PRN Administration Pain, Moderate (4-6) Nitroglycerin 0.75 inch 11/29/18 14:00 11/30/18 18:22 Nitro-Bid 2% TP Not Given QIDNTG [facility] Protocol Ondansetron HCl 4 mg 11/28/18 03:02 Zofran IV Q8H PRN Nausea And Vomiting Pantoprazole Sodium 40 mg 11/29/18 10:00 11/30/18 09:32 Protonix PO 40 mg QDAY VIOLA Administration Pentoxifylline 400 mg 11/29/18 13:00 11/30/18 22:59 Trental PO 400 mg Q12HR VIOLA Administration Prednisone 50 mg 11/29/18 10:00 11/30/18 09:32 Deltasone PO 50 mg QDAY VIOLA Administration Sodium Chloride 10 ml 11/28/18 10:00 11/30/18 22:56 Sodium Chloride Flush Syringe 10 Ml IV 10 ml BID VIOLA Administration Sodium Chloride 10 ml 11/28/18 03:02 Sodium Chloride Flush Syringe 10 Ml IV PRN PRN LINE FLUSH
[2018-12-01] MEDS: HumaLOG SUB-Q SCH ×4 (08:27→21:23)
[2018-12-01] MEDS: BABY ASPIRIN PO SCH (09:17)
[2018-12-01] MEDS: DELTASONE PO SCH (09:17)
[2018-12-01] MEDS: SODIUM CHLORIDE FLUSH SYRINGE 10 ML IV SCH ×2 (09:18→21:24)
[2018-12-01] MEDS: NITRO-BID 2% TP SCH ×4 (09:18→19:16)
[2018-12-01] MEDS: PROTONIX PO SCH (09:18)
[2018-12-01] MEDS: TRENTAL PO SCH ×2 (09:18→21:22)
[2018-12-01] MEDS: ENTRESTO 49-51 MG PO SCH ×2 (09:18→21:22)
--- NOTE | 2018-12-01 09:19 | Progress Note ---
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 Decreased left ventricular systolic function 20-25%. Plan: Continue IV amiodarone and beta blockers for suppression of arrhythmias. We will plan for RODNEY on Thursday. Subjective Date of service: 12/01/18 Principal diagnosis: thrombosis, acute kidney injury, electrolyte abnormalities Interval history: Patient has no complaints. No distress noted. Stable sinus rhythm on telemetry. Objective Vital Signs Temp Pulse Pulse Resp BP Pulse Ox 12/01/18 08:31 70 46 H 97/63 86 12/01/18 08:21 70 19 97/63 100 12/01/18 08:11 70 21 97/63 77 L 12/01/18 08:01 70 17 123/49 52 L 12/01/18 08:00 90 25 H 99 12/01/18 07:51 70 14 103/68 12/01/18 07:41 70 44 H 103/68 96 12/01/18 07:31 70 36 H 123/49 71 L 12/01/18 07:21 70 54 H 123/49 91 12/01/18 07:11 70 45 H 123/49 99 12/01/18 07:01 70 53 H 123/49 98 12/01/18 06:51 70 29 H 100/76 96 12/01/18 06:41 70 53 H 67/33 100 12/01/18 06:31 72 43 H 85/32 92 12/01/18 06:21 70 52 H 124/105 100 12/01/18 06:11 77 57 H 124/105 99 12/01/18 06:01 75 51 H 124/105 96 12/01/18 05:51 75 53 H 124/105 100 12/01/18 05:41 76 53 H 124/105 100 12/01/18 05:31 75 40 H 124/105 100 12/01/18 05:21 75 43 H 124/105 100 12/01/18 05:11 75 41 H 124/105 100 12/01/18 05:01 76 44 H 101/68 99 12/01/18 04:51 76 55 H 101/68 100 12/01/18 04:41 76 43 H 101/68 100 12/01/18 04:31 75 52 H 101/68 96 12/01/18 04:21 75 50 H 137/57 97 12/01/18 04:11 78 56 H 87/63 12/01/18 04:01 76 38 H 87/63 12/01/18 04:00 74 90 47 H 99 12/01/18 03:51 75 53 H 87/63 12/01/18 03:48 97.4 F L 12/01/18 03:41 76 57 H 87/63 12/01/18 03:31 71 32 H 87/63 12/01/18 03:21 74 50 H 87/63 12/01/18 03:11 74 57 H 87/63 12/01/18 03:01 74 51 H 87/63 12/01/18 02:51 73 41 H 87/63 12/01/18 02:41 73 44 H 87/63 12/01/18 02:31 73 50 H 87/63 12/01/18 02:21 75 59 H 87/63 12/01/18 02:11 71 37 H 87/63 12/01/18 02:00 70 60 H 121/62 12/01/18 01:51 72 54 H 87/63 12/01/18 01:41 70 29 H 87/63 12/01/18 01:31 70 56 H 87/63 12/01/18 01:21 70 34 H 87/63 12/01/18 01:11 70 38 H 87/63 12/01/18 01:01 70 59 H 87/63 12/01/18 00:51 76 44 H 87/63 12/01/18 00:41 71 43 H 87/63 12/01/18 00:31 70 48 H 87/63 12/01/18 00:21 70 36 H 87/63 12/01/18 00:11 70 44 H 87/63 85 12/01/18 00:01 70 17 87/63 81 L 12/01/18 00:00 98.3 F 96 H 99 11/30/18 23:55 70 50 H 87/63 98 11/30/18 23:51 69 14 87/63 11/30/18 23:41 70 46 H 87/63 11/30/18 23:31 70 48 H 87/63 11/30/18 23:21 70 26 H 87/63 11/30/18 23:11 71 58 H 87/63 11/30/18 23:01 71 56 H 87/63 11/30/18 22:57 70 11/30/18 22:51 70 58 H 121/62 11/30/18 22:41 70 57 H 121/62 11/30/18 22:31 70 27 H 121/62 11/30/18 22:21 70 40 H 121/62 11/30/18 22:11 70 57 H 121/62 11/30/18 22:01 70 31 H 121/62 11/30/18 22:00 80 11/30/18 21:51 70 39 H 121/62 11/30/18 21:41 70 49 H 121/62 11/30/18 21:31 71 47 H 121/62 11/30/18 21:21 70 40 H 121/62 11/30/18 21:11 70 26 H 121/62 11/30/18 21:00 70 33 H 121/62 11/30/18 20:51 70 24 104/56 11/30/18 20:41 70 29 H 104/56 11/30/18 20:31 71 58 H 104/56 11/30/18 20:21 70 45 H 104/56 11/30/18 20:11 70 17 104/56 11/30/18 20:01 71 56 H 141/114 11/30/18 20:00 99 11/30/18 19:36 97.4 F L 11/30/18 19:31 71 17 89/66 11/30/18 19:21 70 55 H 89/66 11/30/18 19:11 70 25 H 89/66 11/30/18 19:00 70 41 H 141/114 11/30/18 18:51 70 59 H 89/66 11/30/18 18:41 70 58 H 89/66 11/30/18 18:31 70 49 H 89/66 11/30/18 18:22 70 89/66 11/30/18 18:21 70 23 89/66 89 11/30/18 18:11 70 55 H 11/30/18 18:01 70 56 H 69/25 11/30/18 17:51 71 41 H 128/78 11/30/18 17:41 70 27 H 128/78 11/30/18 17:31 70 18 128/78 11/30/18 17:21 70 23 128/78 100 11/30/18 17:10 70 13 128/78 100 11/30/18 17:00 70 16 76/55 100 11/30/18 16:51 70 52 H 89/34 100 11/30/18 16:41 70 19 11/30/18 16:31 70 57 H 137/97 11/30/18 16:21 70 55 H 137/97 11/30/18 16:11 70 58 H 137/97 11/30/18 16:01 70 40 H 71/39 11/30/18 16:00 99 11/30/18 15:51 70 16 71/39 11/30/18 15:41 70 34 H 71/39 11/30/18 15:31 70 42 H 71/39 11/30/18 15:21 70 35 H 71/39 11/30/18 15:11 70 11 L 112/82 11/30/18 15:01 70 16 112/82 11/30/18 14:51 70 40 H 112/82 11/30/18 14:44 99 11/30/18 14:41 70 56 H 112/82 96 11/30/18 14:31 75 43 H 121/81 100 11/30/18 14:21 70 56 H 121/81 97 11/30/18 14:11 71 17 121/81 11/30/18 14:01 81 57 H 140/84 11/30/18 13:51 89 56 H 121/81 97 11/30/18 13:41 92 H 58 H 121/81 11/30/18 13:31 110 H 58 H 121/81 99 11/30/18 13:21 92 H 33 H 138/75 96 11/30/18 13:11 100 H 47 H 138/75 95 11/30/18 13:10 113 H 138/75 11/30/18 13:01 117 H 51 H 138/75 94 11/30/18 12:51 94 H 55 H 131/83 96 11/30/18 12:41 99 H 42 H 131/83 94 11/30/18 12:31 96 H 52 H 131/83 95 11/30/18 12:21 99 H 56 H 115/89 95 11/30/18 12:11 94 H 57 H 115/89 93 11/30/18 12:00 98.4 F 89 23 115/89 99 11/30/18 11:51 90 39 H 123/87 97 11/30/18 11:41 90 17 123/87 95 11/30/18 11:30 99 H 37 H 123/87 87 11/30/18 11:21 93 H 39 H 121/85 95 11/30/18 11:11 98 H 53 H 121/85 93 11/30/18 11:01 95 H 55 H 121/85 100 11/30/18 10:51 97 H 56 H 149/89 95 11/30/18 10:41 96 H 37 H 149/89 95 11/30/18 10:30 91 H 46 H 162/89 94 11/30/18 10:21 82 58 H 162/89 95 11/30/18 10:11 88 59 H 162/89 94 11/30/18 10:01 98 H 61 H 162/89 95 11/30/18 09:56 91 H 11/30/18 09:50 95 H 30 H 143/117 99 11/30/18 09:42 98 H 172/138 11/30/18 09:41 97 H 53 H 172/138 92 11/30/18 09:31 87 44 H 161/124 97 11/30/18 09:21 98 H 18 122/63 80 L - Physical Examination General: No Apparent Distress HEENT: Positive: PERRL Neck: Positive: trachea midline Cardiac: Positive: Reg Rate and Rhythm Lungs: Positive: Decreased Breath Sounds Neuro: Positive: Grossly Intact - Labs and Meds Coagulation 11/30/18 12/01/18 Range/Units 11:24 05:32 APTT 62.1 H* 50.0 H (24.2-36.6) Sec. CBC 11/30/18 12/01/18 Range/Units 09:40 05:32 WBC 28.8 H 24.7 H (4.5-11.0) K/mm3 RBC 6.58 H 6.30 H (3.65-5.03) M/mm3 Hgb 18.2 H 17.8 H (10.1-14.3) gm/dl Hct 57.2 H* D 54.2 H (30.3-42.9) % Plt Count 202 155 (140-440) K/mm3 <IVANNA SALES - Last Filed: 12/15/18 10:10> Assessment and Plan I seen and evaluated the patient agrees with the assessment and plan. Continue current medical therapy for treatment of hypertension and chronic systolic failure. Recommend continue medical therapy for treatment of arrhythmia. Plan for transesophageal echo. Objective Vital Signs Temp Pulse Pulse Resp BP Pulse Ox 12/15/18 09:00 152 H 15 109/76 100 12/15/18 08:10 100 12/15/18 08:00 149 H 153 H 33 H 124/69 99 12/15/18 07:00 149 H 34 H 96/61 12/15/18 06:00 150 H 38 H 86/71 99 12/15/18 05:00 146 H 43 H 111/65 99 12/15/18 04:00 98.9 F 146 H 150 H 31 H 95/63 99 12/15/18 03:00 144 H 27 H 98/57 98 12/15/18 02:00 147 H 28 H 77/55 12/15/18 01:00 144 H 31 H 112/66 12/15/18 00:00 143 H 140 H 38 H 109/74 98 12/14/18 23:57 99.0 F 12/14/18 23:00 122 H 40 H 78/54 100 12/14/18 22:01 22 12/14/18 22:00 143 H 34 H 105/69 99 12/14/18 21:40 100 12/14/18 21:00 143 H 29 H 119/62 100 12/14/18 20:14 142 H 21 106/69 100 12/14/18 20:00 99.3 F 145 H 145 H 22 106/69 100 12/14/18 19:00 140 H 32 H 116/59 98 12/14/18 18:00 138 H 24 125/67 100 12/14/18 17:44 139 H 116/62 12/14/18 17:00 144 H 28 H 129/66 100 12/14/18 16:00 139 H 139 H 24 118/64 100 12/14/18 15:00 139 H 32 H 111/71 12/14/18 14:00 141 H 39 H 118/57 100 12/14/18 13:34 98.0 F 140 H 30 H 127/72 100 12/14/18 13:30 140 H 102/61 12/14/18 13:04 98.3 F 139 H 36 H 118/57 12/14/18 13:00 141 H 30 H 98/54 100 12/14/18 12:34 98.5 F 139 H 35 H 102/61 100 12/14/18 12:19 98.0 F 139 H 28 H 105/48 25 L 12/14/18 12:00 97.6 F 140 H 140 H 30 H 99/66 100 12/14/18 11:00 142 H 21 107/78 100 - Labs and Meds CBC 12/14/18 12/15/18 Range/Units 15:41 08:10 WBC 22.3 H (4.5-11.0) K/mm3 RBC 3.26 L (3.65-5.03) M/mm3 Hgb 8.9 L 9.2 L (10.1-14.3) gm/dl Hct 27.1 L 27.9 L (30.3-42.9) % Plt Count 341 (140-440) K/mm3 Comprehensive Metabolic Panel 12/15/18 Range/Units 08:10 Sodium 136 L (137-145) mmol/L Potassium 3.7 (3.6-5.0) mmol/L Chloride 95.0 L (98-107) mmol/L Carbon Dioxide 30 (22-30) mmol/L BUN 14 (7-17) mg/dL Creatinine 0.9 (0.7-1.2) mg/dL Glucose 147 H (65-100) mg/dL Calcium 8.6 (8.4-10.2) mg/dL
[2018-12-01] MEDS: FLONASE NS SCH ×2 (09:56→21:31)
[2018-12-01] MEDS ORDERED: HEPARIN/NS 5000 UNIT/500ML(CATH LAB) 500 ML IR ONE (12:06)
[2018-12-01] MEDS ORDERED: VERSED ONE (12:09)
[2018-12-01] MEDS ORDERED: SUBLIMAZE ONE (12:09)
--- NOTE | 2018-12-01 12:26 | Progress Note ---
Assessment and Plan - Patient Problems (1) Acute kidney injury Current Visit: Yes Status: Acute Plan to address problem: Kidney function was improving. Labs pending this morning. Continue volume repletion. Follow up electrolytes and renal function (2) Hyperkalemia Current Visit: Yes Status: Acute Plan to address problem: Hyperkalemia on presentation improved with medical management. Follow-up electrolytes (3) Hypernatremia Current Visit: Yes Status: Acute Plan to address problem: Hypernatremia secondary to free water losses. Replace free water and follow-up sodium (4) Hyperosmolar hyperglycemic coma due to diabetes mellitus without k etoacidosis Current Visit: Yes Status: Acute Plan to address problem: Steroid induced hyperglycemia/newly diagnosed type 2 diabetes mellitus. Blood sugar control by primary attending (5) Acrocyanosis Current Visit: Yes Status: Acute Plan to address problem: Etiology uncertain. May be related to scleroderma. Arterial Duplex shows that Diffuse peripheral vascular disease in both lower extremities with occlusive disease of the left anterior tibial and dorsalis pedis arteries. Distal disease in the left hand. Vascular Surgery on board and Power Saw Mechanic is ruling out embolic disease. Patient is on Direct Thrombin inhibitor being managed by marketing teacher pending HIT antibody. (6) Transaminasemia Current Visit: Yes Status: Acute Plan to address problem: Probable ischemic hepatitis. 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 Monitor for signs of volume overload with volume repletion Subjective Date of service: 12/02/18 Principal diagnosis: thrombosis, acute kidney injury, electrolyte abnormalities Interval history: Patient seen lying in bed. Still complains of pain in her feet and hands. Family member -nieces- at the bedside. No nausea or vomiting Objective - Exam Narrative Exam: Obese young -[place] female lying in bed in no acute distress HEENT: NCAT, pink oral mucous membrane Neck: Supple, no venous distention CVS: S1S2 RRR with no murmur, rub or gallop Chest: Clear to auscultation Abdomen: obese, soft, nontender, no organomegaly, bowel sounds are present Extremities: No edema, cool extremities with cyanotic toes, and cyanotic left middle distal phalanx and nail bed Neuro: Awake, alert no focal deficits - Vital Signs Vital signs: Vital Signs - 12hr 08/21/19 08/21/19 08/21/19 00:31 00:41 00:51 Temperature Pulse Rate 70 71 76 Pulse Rate [ Left Radial] Respiratory 48 H 43 H 44 H Rate Blood Pressure 87/63 87/63 87/63 O2 Sat by Pulse Oximetry 12/01/18 12/01/18 12/01/18 01:01 01:11 01:21 Temperature Pulse Rate 70 70 70 Pulse Rate [ Left Radial] Respiratory 59 H 38 H 34 H Rate Blood Pressure 87/63 87/63 87/63 O2 Sat by Pulse Oximetry 12/01/18 12/01/18 12/01/18 01:31 01:41 01:51 Temperature Pulse Rate 70 70 72 Pulse Rate [ Left Radial] Respiratory 56 H 29 H 54 H Rate Blood Pressure 87/63 87/63 87/63 O2 Sat by Pulse Oximetry 12/01/18 12/01/18 12/01/18 02:00 02:11 02:21 Temperature Pulse Rate 70 71 75 Pulse Rate [ Left Radial] Respiratory 60 H 37 H 59 H Rate Blood Pressure 121/62 87/63 87/63 O2 Sat by Pulse Oximetry 12/01/18 12/01/18 12/01/18 02:31 02:41 02:51 Temperature Pulse Rate 73 73 73 Pulse Rate [ Left Radial] Respiratory 50 H 44 H 41 H Rate Blood Pressure 87/63 87/63 87/63 O2 Sat by Pulse Oximetry 12/01/18 12/01/18 12/01/18 03:01 03:11 03:21 Temperature Pulse Rate 74 74 74 Pulse Rate [ Left Radial] Respiratory 51 H 57 H 50 H Rate Blood Pressure 87/63 87/63 87/63 O2 Sat by Pulse Oximetry 12/01/18 12/01/18 12/01/18 03:31 03:41 03:48 Temperature 97.4 F L Pulse Rate 71 76 Pulse Rate [ Left Radial] Respiratory 32 H 57 H Rate Blood Pressure 87/63 87/63 O2 Sat by Pulse Oximetry 12/01/18 12/01/18 12/01/18 03:51 04:00 04:01 Temperature Pulse Rate 75 74 76 Pulse Rate [ 90 Left Radial] Respiratory 53 H 47 H 38 H Rate Blood Pressure 87/63 87/63 O2 Sat by Pulse 99 Oximetry 12/01/18 12/01/18 12/01/18 04:11 04:21 04:31 Temperature Pulse Rate 78 75 75 Pulse Rate [ Left Radial] Respiratory 56 H 50 H 52 H Rate Blood Pressure 87/63 137/57 101/68 O2 Sat by Pulse 97 96 Oximetry 12/01/18 12/01/18 12/01/18 04:41 04:51 05:01 Temperature Pulse Rate 76 76 76 Pulse Rate [ Left Radial] Respiratory 43 H 55 H 44 H Rate Blood Pressure 101/68 101/68 101/68 O2 Sat by Pulse 100 100 99 Oximetry 12/01/18 12/01/18 12/01/18 05:11 05:21 05:31 Temperature Pulse Rate 75 75 75 Pulse Rate [ Left Radial] Respiratory 41 H 43 H 40 H Rate Blood Pressure 124/105 124/105 124/105 O2 Sat by Pulse 100 100 100 Oximetry 12/01/18 12/01/18 12/01/18 05:41 05:51 06:01 Temperature Pulse Rate 76 75 75 Pulse Rate [ Left Radial] Respiratory 53 H 53 H 51 H Rate Blood Pressure 124/105 124/105 124/105 O2 Sat by Pulse 100 100 96 Oximetry 12/01/18 12/01/18 12/01/18 06:11 06:21 06:31 Temperature Pulse Rate 77 70 72 Pulse Rate [ Left Radial] Respiratory 57 H 52 H 43 H Rate Blood Pressure 124/105 124/105 85/32 O2 Sat by Pulse 99 100 92 Oximetry 12/01/18 12/01/18 12/01/18 06:41 06:51 07:01 Temperature Pulse Rate 70 70 70 Pulse Rate [ Left Radial] Respiratory 53 H 29 H 53 H Rate Blood Pressure 67/33 100/76 123/49 O2 Sat by Pulse 100 96 98 Oximetry 12/01/18 12/01/18 12/01/18 07:11 07:21 07:31 Temperature Pulse Rate 70 70 70 Pulse Rate [ Left Radial] Respiratory 45 H 54 H 36 H Rate Blood Pressure 123/49 123/49 123/49 O2 Sat by Pulse 99 91 71 L Oximetry 12/01/18 12/01/18 12/01/18 07:41 07:51 08:00 Temperature Pulse Rate 70 70 Pulse Rate [ 90 Left Radial] Respiratory 44 H 14 25 H Rate Blood Pressure 103/68 103/68 O2 Sat by Pulse 96 99 Oximetry 12/01/18 12/01/18 12/01/18 08:01 08:11 08:21 Temperature Pulse Rate 70 70 70 Pulse Rate [ Left Radial] Respiratory 17 21 19 Rate Blood Pressure 123/49 97/63 97/63 O2 Sat by Pulse 52 L 77 L 100 Oximetry 12/01/18 12/01/18 12/01/18 08:31 08:40 08:51 Temperature Pulse Rate 70 70 70 Pulse Rate [ Left Radial] Respiratory 46 H 20 51 H Rate Blood Pressure 97/63 77/32 77/32 O2 Sat by Pulse 86 99 86 Oximetry 12/01/18 12/01/18 12/01/18 09:01 09:11 09:18 Temperature Pulse Rate 70 70 70 Pulse Rate [ Left Radial] Respiratory 18 52 H Rate Blood Pressure 77/32 139/107 139/107 O2 Sat by Pulse 74 L 73 L Oximetry 12/01/18 12/01/18 12/01/18 09:21 09:31 09:41 Temperature Pulse Rate 70 70 70 Pulse Rate [ Left Radial] Respiratory 26 H 29 H 37 H Rate Blood Pressure 139/107 77/32 77/32 O2 Sat by Pulse 63 L 74 L 69 L Oximetry 12/01/18 12/01/18 12/01/18 09:51 10:00 10:11 Temperature Pulse Rate 70 70 70 Pulse Rate [ Left Radial] Respiratory 44 H 48 H 40 H Rate Blood Pressure 77/32 108/77 108/77 O2 Sat by Pulse 62 L 100 98 Oximetry 12/01/18 12/01/18 12/01/18 10:21 10:30 10:41 Temperature Pulse Rate 70 70 70 Pulse Rate [ Left Radial] Respiratory 9 L 20 51 H Rate Blood Pressure 108/77 108/77 108/77 O2 Sat by Pulse 100 100 97 Oximetry 12/01/18 12/01/18 10:51 11:00 Temperature Pulse Rate 70 70 Pulse Rate [ Left Radial] Respiratory 56 H 11 L Rate Blood Pressure 108/77 89/69 O2 Sat by Pulse 99 100 Oximetry - Lab 12/02/18 04:45 12/02/18 04:45 Most recent lab results ABG pH 7.414 pH Units (7.350-7.450) 11/28/18 01:01 ABG pCO2 48.8 mm Hg 11/28/18 01:01 ABG pO2 65.7 mm Hg (80.0-90.0) L 11/28/18 01:01 ABG HCO3 30.5 mmol/L (20.0-26.0) H 11/28/18 01:01 ABG O2 Saturation 91.3 % (95.0-99.0) L 11/28/18 01:01 Calcium 9.3 mg/dL (8.4-10.2) 11/30/18 07:18 Phosphorus 3.30 mg/dL (2.5-4.5) 11/30/18 07:18 Magnesium 3.20 mg/dL (1.7-2.3) H 11/30/18 07:18 117.4 mg/dL (0.1-20.0) H 11/29/18 13:40 53 mmol/L 11/29/18 13:40 120 mg/dL (5-11.8) H 11/29/18 13:40 Medications & Allergies - Medications Allergies/Adverse Reactions: Allergies lisinopril Adverse Reaction (Severe, Verified 12/17/13 19:00) SORE THROAT;PERSISTENT COUGH Home Medications: Home Medications Medication Instructions Recorded Confirmed Last Taken Type Aspirin [Aspirin BABY CHEW TAB] 81 mg PO QDAY 11/28/18 11/29/18 11/26/18 History Fluticasone [Flonase] 1 spray NS BID 11/28/18 11/28/18 Unknown History Furosemide [Lasix TAB] 40 mg PO BID 11/28/18 11/28/18 Unknown History Ibuprofen [Motrin] 600 mg PO Q6H PRN 11/28/18 11/28/18 Unknown History Montelukast [Singulair] 10 mg PO QPM 11/28/18 11/28/18 Unknown History Mycophenolate [Cellcept] 500 mg PO BID 11/28/18 11/28/18 Unknown History Mycophenolate [Cellcept] 500 mg PO BID PRN MDD 2 TABS 11/28/18 11/28/18 Unknown History Pantoprazole [Protonix] 40 mg PO QDAY 11/28/18 11/28/18 Unknown History Sacubitril/Valsartan [Entresto 1 each PO BID 11/28/18 11/28/18 Unknown History 49-51 mg] predniSONE [Deltasone] 50 mg PO QDAY 11/28/18 11/28/18 Unknown History raNITIdine HCl [Zantac] 150 mg PO BID 11/28/18 11/28/18 Unknown History Amitriptyline [Elavil] 25 mg PO HS 11/29/18 11/29/18 11/26/18 History Aspirin [Adult Aspirin] 81 mg PO ONCE 11/29/18 11/29/18 11/26/18 History Entresto 49-51 mg 49 mg PO BID 11/29/18 11/29/18 11/26/18 History HYDROcodone/APAP 5-325 5 mg PO Q6HR PRN 11/29/18 11/29/18 Unknown History Active Medications: Generic Name Dose Route Start Last Admin Trade Name Freq PRN Reason Stop Dose Admin Acetaminophen 650 mg 11/28/18 03:02 Tylenol PO Q4H PRN Pain MILD(1-3)/Fever >100.5/TURPIN Alprazolam 0.25 mg 11/30/18 01:09 11/30/18 01:21 Xanax PO 0.25 mg Q8H PRN Administration Anxiety Amitriptyline HCl 25 mg 11/29/18 22:00 11/30/18 22:55 Elavil PO 25 mg HS VIOLA Administration Aspirin 81 mg 11/29/18 10:00 12/01/18 09:17 Baby Aspirin PO 81 mg QDAY VIOLA Administration Dextrose 0 ml 11/28/18 02:19 D50w (25gm) Syringe IV PRN PRN Hypoglycemia Fluticasone Propionate 50 mcg 11/29/18 10:00 12/01/18 09:56 Flonase NS 50 mcg BID VIOLA Administration Hydralazine HCl 10 mg 11/28/18 03:41 Apresoline IV Q6HR PRN Blood Pressure Hydrophilic Ointment 1 applic 11/30/18 11:55 Vaseline Lip Therapy TP DIRECT PRN DRY LIPS Amiodarone HCl 900 mg/ 500 mls @ 33.333 mls/hr 11/28/18 15:00 12/01/18 02:17 Dextrose IV 1 mg/min DIRECT VIOLA 33.333 mls/hr Administration Protocol 1 MG/MIN Argatroban 250 mg/ Sodium 250 mls @ 3.682 mls/hr 11/29/18 13:00 12/01/18 02:17 Chloride IV 0.5 mcg/kg/min TITR VIOLA 3.682 mls/hr Administration Protocol 0.5 MCG/KG/MIN Insulin Human Isoph/Insulin Regular 10 unit 11/29/18 11:00 12/01/18 08:27 Humulin 70/30 SUB-Q 10 unit BIDDIAB VIOLA Administration Insulin Human Lispro 0 unit 11/30/18 09:00 12/01/18 11:33 Humalog SUB-Q 3 unit ACHS VIOLA Administration Protocol Metoprolol Tartrate 25 mg 11/30/18 14:00 11/30/18 22:57 Lopressor PO 25 mg Q8HR VIOLA Administration Montelukast Sodium 10 mg 11/29/18 18:00 11/30/18 17:55 Singulair PO 10 mg QPM VIOLA Administration Morphine Sulfate 2 mg 11/28/18 03:02 11/30/18 22:59 Morphine IV 2 mg Q4H PRN Administration Pain, Moderate (4-6) Nitroglycerin 0.75 inch 11/29/18 14:00 12/01/18 09:18 Nitro-Bid 2% TP 0.75 inch QIDNTG VIOLA Administration Protocol Ondansetron HCl 4 mg 11/28/18 03:02 Zofran IV Q8H PRN Nausea And Vomiting Pantoprazole Sodium 40 mg 11/29/18 10:00 12/01/18 09:18 Protonix PO 40 mg QDAY VIOLA Administration Pentoxifylline 400 mg 11/29/18 13:00 12/01/18 09:18 Trental PO 400 mg Q12HR VIOLA Administration Prednisone 50 mg 11/29/18 10:00 12/01/18 09:17 Deltasone PO 50 mg QDAY VIOLA Administration Sodium Chloride 10 ml 11/28/18 10:00 12/01/18 09:18 Sodium Chloride Flush Syringe 10 Ml IV 10 ml BID VIOLA Administration Sodium Chloride 10 ml 11/28/18 03:02 Sodium Chloride Flush Syringe 10 Ml IV PRN PRN LINE FLUSH
[2018-12-01] MEDS ORDERED: NACL 0.9% 500 ML 500 ML ONE (12:30)
--- NOTE | 2018-12-01 12:31 | Progress Note ---
Assessment and Plan Impression: Diabetic ketoacidosis resolved, on long-acting insulin. 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 cardiomyopathy status post AICD Recurrent Ventricular arrhythmia status post recurrent activation of AICD multiple times Dehydration/volume depletion with hypernatremia Sleep apnea on CPAP Dyspnea and tachypnea probably related to anxiety and pain Recommendation: Continue with oral fluid/free water replacement Vascular to manage ischemic changes Continue with CPAP during sleep and when necessary. Tachypnea may be related to anxiety and pain. Chest x-ray today Total critical care time 31 minute Subjective Date of service: 12/01/18 Principal diagnosis: thrombosis, acute kidney injury, electrolyte abnormalities Interval history: Patient awake and alert. Complaining of left foot pain. Has history of scleroderma. Diabetic ketoacidosis seems to have resolved. Episodes of ventricularof ventricular tachypnea requiring repeated activation of AICD. Has sleep apnea CPAP when sleeping. Had an episode of tachypnea and oxygen desaturation which resolved after placing her on Pap therapy currently on oxygen at 2 L with good blood gases. Unable to insert a PICC line Objective Vital Signs - 12hr 12/01/18 12/01/18 12/01/18 00:31 00:41 00:51 Temperature Pulse Rate 70 71 76 Pulse Rate [ Left Radial] Respiratory 48 H 43 H 44 H Rate Blood Pressure 87/63 87/63 87/63 O2 Sat by Pulse Oximetry 12/01/18 12/01/18 12/01/18 01:01 01:11 01:21 Temperature Pulse Rate 70 70 70 Pulse Rate [ Left Radial] Respiratory 59 H 38 H 34 H Rate Blood Pressure 87/63 87/63 87/63 O2 Sat by Pulse Oximetry 12/01/18 12/01/18 12/01/18 01:31 01:41 01:51 Temperature Pulse Rate 70 70 72 Pulse Rate [ Left Radial] Respiratory 56 H 29 H 54 H Rate Blood Pressure 87/63 87/63 87/63 O2 Sat by Pulse Oximetry 12/01/18 12/01/18 12/01/18 02:00 02:11 02:21 Temperature Pulse Rate 70 71 75 Pulse Rate [ Left Radial] Respiratory 60 H 37 H 59 H Rate Blood Pressure 121/62 87/63 87/63 O2 Sat by Pulse Oximetry 12/01/18 12/01/18 12/01/18 02:31 02:41 02:51 Temperature Pulse Rate 73 73 73 Pulse Rate [ Left Radial] Respiratory 50 H 44 H 41 H Rate Blood Pressure 87/63 87/63 87/63 O2 Sat by Pulse Oximetry 12/01/18 12/01/18 12/01/18 03:01 03:11 03:21 Temperature Pulse Rate 74 74 74 Pulse Rate [ Left Radial] Respiratory 51 H 57 H 50 H Rate Blood Pressure 87/63 87/63 87/63 O2 Sat by Pulse Oximetry 12/01/18 12/01/18 12/01/18 03:31 03:41 03:48 Temperature 97.4 F L Pulse Rate 71 76 Pulse Rate [ Left Radial] Respiratory 32 H 57 H Rate Blood Pressure 87/63 87/63 O2 Sat by Pulse Oximetry 12/01/18 12/01/18 12/01/18 03:51 04:00 04:01 Temperature Pulse Rate 75 74 76 Pulse Rate [ 90 Left Radial] Respiratory 53 H 47 H 38 H Rate Blood Pressure 87/63 87/63 O2 Sat by Pulse 99 Oximetry 12/01/18 12/01/18 12/01/18 04:11 04:21 04:31 Temperature Pulse Rate 78 75 75 Pulse Rate [ Left Radial] Respiratory 56 H 50 H 52 H Rate Blood Pressure 87/63 137/57 101/68 O2 Sat by Pulse 97 96 Oximetry 12/01/18 12/01/18 12/01/18 04:41 04:51 05:01 Temperature Pulse Rate 76 76 76 Pulse Rate [ Left Radial] Respiratory 43 H 55 H 44 H Rate Blood Pressure 101/68 101/68 101/68 O2 Sat by Pulse 100 100 99 Oximetry 12/01/18 12/01/18 12/01/18 05:11 05:21 05:31 Temperature Pulse Rate 75 75 75 Pulse Rate [ Left Radial] Respiratory 41 H 43 H 40 H Rate Blood Pressure 124/105 124/105 124/105 O2 Sat by Pulse 100 100 100 Oximetry 12/01/18 12/01/18 12/01/18 05:41 05:51 06:01 Temperature Pulse Rate 76 75 75 Pulse Rate [ Left Radial] Respiratory 53 H 53 H 51 H Rate Blood Pressure 124/105 124/105 124/105 O2 Sat by Pulse 100 100 96 Oximetry 12/01/18 12/01/18 12/01/18 06:11 06:21 06:31 Temperature Pulse Rate 77 70 72 Pulse Rate [ Left Radial] Respiratory 57 H 52 H 43 H Rate Blood Pressure 124/105 124/105 85/32 O2 Sat by Pulse 99 100 92 Oximetry 12/01/18 12/01/18 12/01/18 06:41 06:51 07:01 Temperature Pulse Rate 70 70 70 Pulse Rate [ Left Radial] Respiratory 53 H 29 H 53 H Rate Blood Pressure 67/33 100/76 123/49 O2 Sat by Pulse 100 96 98 Oximetry 12/01/18 12/01/18 12/01/18 07:11 07:21 07:31 Temperature Pulse Rate 70 70 70 Pulse Rate [ Left Radial] Respiratory 45 H 54 H 36 H Rate Blood Pressure 123/49 123/49 123/49 O2 Sat by Pulse 99 91 71 L Oximetry 12/01/18 12/01/18 12/01/18 07:41 07:51 08:00 Temperature Pulse Rate 70 70 Pulse Rate [ 90 Left Radial] Respiratory 44 H 14 25 H Rate Blood Pressure 103/68 103/68 O2 Sat by Pulse 96 99 Oximetry 12/01/18 12/01/18 12/01/18 08:01 08:11 08:21 Temperature Pulse Rate 70 70 70 Pulse Rate [ Left Radial] Respiratory 17 21 19 Rate Blood Pressure 123/49 97/63 97/63 O2 Sat by Pulse 52 L 77 L 100 Oximetry 12/01/18 12/01/18 12/01/18 08:31 08:40 08:51 Temperature Pulse Rate 70 70 70 Pulse Rate [ Left Radial] Respiratory 46 H 20 51 H Rate Blood Pressure 97/63 77/32 77/32 O2 Sat by Pulse 86 99 86 Oximetry 12/01/18 12/01/18 12/01/18 09:01 09:11 09:18 Temperature Pulse Rate 70 70 70 Pulse Rate [ Left Radial] Respiratory 18 52 H Rate Blood Pressure 77/32 139/107 139/107 O2 Sat by Pulse 74 L 73 L Oximetry 12/01/18 12/01/18 12/01/18 09:21 09:31 09:41 Temperature Pulse Rate 70 70 70 Pulse Rate [ Left Radial] Respiratory 26 H 29 H 37 H Rate Blood Pressure 139/107 77/32 77/32 O2 Sat by Pulse 63 L 74 L 69 L Oximetry 12/01/18 12/01/18 12/01/18 09:51 10:00 10:11 Temperature Pulse Rate 70 70 70 Pulse Rate [ Left Radial] Respiratory 44 H 48 H 40 H Rate Blood Pressure 77/32 108/77 108/77 O2 Sat by Pulse 62 L 100 98 Oximetry 12/01/18 12/01/18 12/01/18 10:21 10:30 10:41 Temperature Pulse Rate 70 70 70 Pulse Rate [ Left Radial] Respiratory 9 L 20 51 H Rate Blood Pressure 108/77 108/77 108/77 O2 Sat by Pulse 100 100 97 Oximetry 12/01/18 12/01/18 10:51 11:00 Temperature Pulse Rate 70 70 Pulse Rate [ Left Radial] Respiratory 56 H 11 L Rate Blood Pressure 108/77 89/69 O2 Sat by Pulse 99 100 Oximetry Constitutional: no acute distress, alert Eyes: non-icteric ENT: oropharynx moist Neck: supple Effort: normal Ascultation: Bilateral: clear, diminished breath sounds Cardiovascular: regular rate and rhythm Gastrointestinal: normoactive bowel sounds, non-tender, non-distended, other (obese) Extremities: other (discolration noted in LE and ischemic left middle finger) CBC and BMP: 12/01/18 05:32 11/30/18 07:18 ABG, PT/INR, D-dimer: ABG POC ABG pH 7.413 (7.35-7.45) 12/01/18 10:39 ABG pH 7.414 pH Units (7.350-7.450) 11/28/18 01:01 POC ABG pCO2 30.6 (35-45) L 12/01/18 10:39 ABG pCO2 48.8 mm Hg 11/28/18 01:01 POC ABG pO2 95 (80-105) 12/01/18 10:39 ABG pO2 65.7 mm Hg (80.0-90.0) L 11/28/18 01:01 POC ABG HCO3 19.5 (22-26 mml/L) 12/01/18 10:39 POC ABG Total CO2 20 (23-27mmol/L) 12/01/18 10:39 POC ABG O2 Sat 98 12/01/18 10:39 ABG O2 Saturation 91.3 % (95.0-99.0) L 11/28/18 01:01 PT/INR, D-dimer PT 15.6 Sec. (12.2-14.9) H 11/28/18 01:01 INR 1.27 (0.87-1.13) H 11/28/18 01:01 Abnormal lab findings: Abnormal Labs 11/27/18 11/28/18 11/28/18 23:40 01:01 01:01 WBC 15.1 H RBC 6.19 H Hgb 17.4 H Hct 54.6 H RDW 19.6 H Lymph % (Auto) 6.3 L Lymph # 0.9 L [place] # 0.9 H Seg Neutrophils % 87.2 H Seg Neuts % (Manual) Lymphocytes % (Manual) Nucleated RBC % Seg Neutrophils # 13.2 H Seg Neutrophils # Man Monocytes # (Manual) PT 15.6 H INR 1.27 H APTT POC ABG pCO2 ABG pO2 ABG HCO3 ABG O2 Saturation ABG Base Excess ABG Hemoglobin Oxyhemoglobin Sodium Potassium Chloride Carbon Dioxide BUN Creatinine Glucose POC Glucose > 500 H Hemoglobin A1c Lactic Acid Phosphorus Magnesium Total Bilirubin Direct Bilirubin AST ALT Alkaline Phosphatase Total Creatine Kinase Troponin T Albumin Triglycerides Cholesterol HDL Cholesterol Urine Creatinine Urine Total Protein Salicylates Acetaminophen 11/28/18 11/28/18 11/28/18 01:01 01:01 01:01 WBC RBC Hgb Hct RDW Lymph % (Auto) Lymph # [place] # Seg Neutrophils % Seg Neuts % (Manual) Lymphocytes % (Manual) Nucleated RBC % Seg Neutrophils # Seg Neutrophils # Man Monocytes # (Manual) PT INR APTT POC ABG pCO2 ABG pO2 ABG HCO3 ABG O2 Saturation ABG Base Excess ABG Hemoglobin Oxyhemoglobin Sodium Potassium 5.9 H Chloride 92.9 L Carbon Dioxide BUN 20 H Creatinine 1.3 H Glucose 1088 H* POC Glucose Hemoglobin A1c Lactic Acid 3.50 H* Phosphorus Magnesium Total Bilirubin 2.40 H Direct Bilirubin 1.3 H AST ALT Alkaline Phosphatase 225 H Total Creatine Kinase Troponin T 0.030 H Albumin 3.8 L Triglycerides 356 H Cholesterol 200 H HDL Cholesterol 39 L Urine Creatinine Urine Total Protein Salicylates < 0.3 L Acetaminophen 11/28/18 11/28/18 11/28/18 01:01 01:01 01:01 WBC RBC Hgb Hct RDW Lymph % (Auto) Lymph # [place] # Seg Neutrophils % Seg Neuts % (Manual) Lymphocytes % (Manual) Nucleated RBC % Seg Neutrophils # Seg Neutrophils # Man Monocytes # (Manual) PT INR APTT POC ABG pCO2 ABG pO2 65.7 L ABG HCO3 30.5 H ABG O2 Saturation 91.3 L ABG Base Excess 4.6 H ABG Hemoglobin 18.0 H Oxyhemoglobin 88.0 L Sodium Potassium Chloride Carbon Dioxide BUN Creatinine Glucose POC Glucose Hemoglobin A1c Lactic Acid Phosphorus Magnesium 3.70 H Total Bilirubin Direct Bilirubin AST ALT Alkaline Phosphatase Total Creatine Kinase 228 H Troponin T Albumin Triglycerides Cholesterol HDL Cholesterol Urine Creatinine Urine Total Protein Salicylates Acetaminophen < 5.0 L 11/28/18 11/28/18 11/28/18 01:01 02:39 03:17 WBC RBC Hgb Hct RDW Lymph % (Auto) Lymph # [place] # Seg Neutrophils % Seg Neuts % (Manual) Lymphocytes % (Manual) Nucleated RBC % Seg Neutrophils # Seg Neutrophils # Man Monocytes # (Manual) PT INR APTT POC ABG pCO2 ABG pO2 ABG HCO3 ABG O2 Saturation ABG Base Excess ABG Hemoglobin Oxyhemoglobin Sodium Potassium Chloride Carbon Dioxide BUN Creatinine Glucose POC Glucose > 500 H Hemoglobin A1c 12.5 H Lactic Acid 3.00 H* Phosphorus Magnesium Total Bilirubin Direct Bilirubin AST ALT Alkaline Phosphatase Total Creatine Kinase Troponin T Albumin Triglycerides Cholesterol HDL Cholesterol Urine Creatinine Urine Total Protein Salicylates Acetaminophen 11/28/18 11/28/18 11/28/18 03:17 03:17 03:35 WBC RBC Hgb Hct RDW Lymph % (Auto) Lymph # [place] # Seg Neutrophils % Seg Neuts % (Manual) Lymphocytes % (Manual) Nucleated RBC % Seg Neutrophils # Seg Neutrophils # Man Monocytes # (Manual) PT INR APTT POC ABG pCO2 ABG pO2 ABG HCO3 ABG O2 Saturation ABG Base Excess ABG Hemoglobin Oxyhemoglobin Sodium Potassium 6.1 H* Chloride 97.6 L Carbon Dioxide BUN 20 H Creatinine Glucose 927 H* POC Glucose > 500 H Hemoglobin A1c Lactic Acid Phosphorus 4.70 H Magnesium 3.70 H Total Bilirubin Direct Bilirubin AST ALT Alkaline Phosphatase Total Creatine Kinase Troponin T Albumin Triglycerides Cholesterol HDL Cholesterol Urine Creatinine Urine Total Protein Salicylates Acetaminophen 11/28/18 11/28/18 11/28/18 04:43 05:35 06:30 WBC RBC Hgb Hct RDW Lymph % (Auto) Lymph # [place] # Seg Neutrophils % Seg Neuts % (Manual) Lymphocytes % (Manual) Nucleated RBC % Seg Neutrophils # Seg Neutrophils # Man Monocytes # (Manual) PT INR APTT POC ABG pCO2 ABG pO2 ABG HCO3 ABG O2 Saturation ABG Base Excess ABG Hemoglobin Oxyhemoglobin Sodium Potassium Chloride Carbon Dioxide BUN Creatinine Glucose POC Glucose > 500 H > 500 H > 500 H Hemoglobin A1c Lactic Acid Phosphorus Magnesium Total Bilirubin Direct Bilirubin AST ALT Alkaline Phosphatase Total Creatine Kinase Troponin T Albumin Triglycerides Cholesterol HDL Cholesterol Urine Creatinine Urine Total Protein Salicylates Acetaminophen 11/28/18 11/28/18 11/28/18 07:50 07:50 07:50 WBC RBC Hgb Hct RDW Lymph % (Auto) Lymph # [place] # Seg Neutrophils % Seg Neuts % (Manual) Lymphocytes % (Manual) Nucleated RBC % Seg Neutrophils # Seg Neutrophils # Man Monocytes # (Manual) PT INR APTT POC ABG pCO2 ABG pO2 ABG HCO3 ABG O2 Saturation ABG Base Excess ABG Hemoglobin Oxyhemoglobin Sodium 156 H D Potassium 3.3 L D Chloride 112.8 H Carbon Dioxide BUN Creatinine Glucose 409 H POC Glucose Hemoglobin A1c Lactic Acid 6.20 H* Phosphorus Magnesium Total Bilirubin Direct Bilirubin AST ALT Alkaline Phosphatase Total Creatine Kinase Troponin T 0.030 H D Albumin Triglycerides Cholesterol HDL Cholesterol Urine Creatinine Urine Total Protein Salicylates Acetaminophen 11/28/18 11/28/18 11/28/18 10:33 12:52 14:11 WBC RBC Hgb Hct RDW Lymph % (Auto) Lymph # [place] # Seg Neutrophils % Seg Neuts % (Manual) Lymphocytes % (Manual) Nucleated RBC % Seg Neutrophils # Seg Neutrophils # Man Monocytes # (Manual) PT INR APTT POC ABG pCO2 ABG pO2 ABG HCO3 ABG O2 Saturation ABG Base Excess ABG Hemoglobin Oxyhemoglobin Sodium Potassium Chloride Carbon Dioxide BUN Creatinine Glucose POC Glucose 411 H 204 H 119 H Hemoglobin A1c Lactic Acid Phosphorus Magnesium Total Bilirubin Direct Bilirubin AST ALT Alkaline Phosphatase Total Creatine Kinase Troponin T Albumin Triglycerides Cholesterol HDL Cholesterol Urine Creatinine Urine Total Protein Salicylates Acetaminophen 11/28/18 11/28/18 11/28/18 14:15 15:14 15:14 WBC RBC Hgb Hct RDW Lymph % (Auto) Lymph # [place] # Seg Neutrophils % Seg Neuts % (Manual) Lymphocytes % (Manual) Nucleated RBC % Seg Neutrophils # Seg Neutrophils # Man Monocytes # (Manual) PT INR APTT POC ABG pCO2 ABG pO2 ABG HCO3 ABG O2 Saturation ABG Base Excess ABG Hemoglobin Oxyhemoglobin Sodium 151 H Potassium Chloride 112.4 H Carbon Dioxide 21 L D BUN Creatinine Glucose 167 H POC Glucose Hemoglobin A1c Lactic Acid 4.80 H* 5.00 H* Phosphorus Magnesium Total Bilirubin Direct Bilirubin AST ALT Alkaline Phosphatase Total Creatine Kinase Troponin T Albumin Triglycerides Cholesterol HDL Cholesterol Urine Creatinine Urine Total Protein Salicylates Acetaminophen 11/28/18 11/28/18 11/28/18 15:22 16:22 17:11 WBC RBC Hgb Hct RDW Lymph % (Auto) Lymph # [place] # Seg Neutrophils % Seg Neuts % (Manual) Lymphocytes % (Manual) Nucleated RBC % Seg Neutrophils # Seg Neutrophils # Man Monocytes # (Manual) PT INR APTT POC ABG pCO2 ABG pO2 ABG HCO3 ABG O2 Saturation ABG Base Excess ABG Hemoglobin Oxyhemoglobin Sodium Potassium Chloride Carbon Dioxide BUN Creatinine Glucose POC Glucose 114 H 120 H 183 H Hemoglobin A1c Lactic Acid Phosphorus Magnesium Total Bilirubin Direct Bilirubin AST ALT Alkaline Phosphatase Total Creatine Kinase Troponin T Albumin Triglycerides Cholesterol HDL Cholesterol Urine Creatinine Urine Total Protein Salicylates Acetaminophen 11/28/18 11/28/18 11/28/18 17:17 18:18 19:26 WBC RBC Hgb Hct RDW Lymph % (Auto) Lymph # [place] # Seg Neutrophils % Seg Neuts % (Manual) Lymphocytes % (Manual) Nucleated RBC % Seg Neutrophils # Seg Neutrophils # Man Monocytes # (Manual) PT INR APTT POC ABG pCO2 ABG pO2 ABG HCO3 ABG O2 Saturation ABG Base Excess ABG Hemoglobin Oxyhemoglobin Sodium 151 H Potassium Chloride 112.9 H Carbon Dioxide 21 L BUN Creatinine Glucose 265 H POC Glucose 269 H 243 H Hemoglobin A1c Lactic Acid Phosphorus Magnesium Total Bilirubin Direct Bilirubin AST ALT Alkaline Phosphatase Total Creatine Kinase Troponin T Albumin Triglycerides Cholesterol HDL Cholesterol Urine Creatinine Urine Total Protein Salicylates Acetaminophen 11/28/18 11/28/18 11/29/18 20:45 21:44 05:55 WBC 29.7 H RBC 5.93 H Hgb 16.6 H Hct 51.0 H RDW 19.7 H Lymph % (Auto) Lymph # [place] # Seg Neutrophils % Seg Neuts % (Manual) 93.0 H Lymphocytes % (Manual) 4.0 L Nucleated RBC % Seg Neutrophils # Seg Neutrophils # Man 27.6 H Monocytes # (Manual) 0.9 H PT INR APTT POC ABG pCO2 ABG pO2 ABG HCO3 ABG O2 Saturation ABG Base Excess ABG Hemoglobin Oxyhemoglobin Sodium Potassium Chloride Carbon Dioxide BUN Creatinine Glucose POC Glucose 177 H 124 H Hemoglobin A1c Lactic Acid Phosphorus Magnesium Total Bilirubin Direct Bilirubin AST ALT Alkaline Phosphatase Total Creatine Kinase Troponin T Albumin Triglycerides Cholesterol HDL Cholesterol Urine Creatinine Urine Total Protein Salicylates Acetaminophen 11/29/18 11/29/18 11/29/18 06:42 07:36 09:08 WBC RBC Hgb Hct RDW Lymph % (Auto) Lymph # [place] # Seg Neutrophils % Seg Neuts % (Manual) Lymphocytes % (Manual) Nucleated RBC % Seg Neutrophils # Seg Neutrophils # Man Monocytes # (Manual) PT INR APTT POC ABG pCO2 ABG pO2 ABG HCO3 ABG O2 Saturation ABG Base Excess ABG Hemoglobin Oxyhemoglobin Sodium 152 H Potassium 5.4 H Chloride 110.6 H Carbon Dioxide 20 L BUN 20 H Creatinine 1.6 H Glucose 237 H POC Glucose 118 H 146 H Hemoglobin A1c Lactic Acid Phosphorus Magnesium Total Bilirubin 3.80 H Direct Bilirubin AST 351 H ALT 123 H Alkaline Phosphatase 222 H Total Creatine Kinase Troponin T Albumin 3.5 L Triglycerides Cholesterol HDL Cholesterol Urine Creatinine Urine Total Protein Salicylates Acetaminophen 11/29/18 11/29/18 11/29/18 11:00 11:44 13:40 WBC RBC Hgb Hct RDW Lymph % (Auto) Lymph # [place] # Seg Neutrophils % Seg Neuts % (Manual) Lymphocytes % (Manual) Nucleated RBC % Seg Neutrophils # Seg Neutrophils # Man Monocytes # (Manual) PT INR APTT POC ABG pCO2 ABG pO2 ABG HCO3 ABG O2 Saturation ABG Base Excess ABG Hemoglobin Oxyhemoglobin Sodium 155 H Potassium 5.8 H Chloride 110.1 H Carbon Dioxide 15 L BUN 21 H Creatinine 1.4 H Glucose 204 H POC Glucose 203 H Hemoglobin A1c Lactic Acid Phosphorus Magnesium Total Bilirubin 3.70 H Direct Bilirubin AST 361 H ALT 125 H Alkaline Phosphatase 227 H Total Creatine Kinase Troponin T Albumin 3.4 L Triglycerides Cholesterol HDL Cholesterol Urine Creatinine 117.4 H Urine Total Protein 120 H Salicylates Acetaminophen 11/29/18 11/29/18 11/29/18 16:29 16:46 16:46 WBC RBC Hgb Hct RDW Lymph % (Auto) Lymph # [place] # Seg Neutrophils % Seg Neuts % (Manual) Lymphocytes % (Manual) Nucleated RBC % Seg Neutrophils # Seg Neutrophils # Man Monocytes # (Manual) PT INR APTT 49.5 H POC ABG pCO2 ABG pO2 ABG HCO3 ABG O2 Saturation ABG Base Excess ABG Hemoglobin Oxyhemoglobin Sodium 148 H Potassium Chloride 108.3 H Carbon Dioxide 21 L BUN 22 H Creatinine 1.4 H Glucose 152 H POC Glucose 158 H Hemoglobin A1c Lactic Acid Phosphorus Magnesium Total Bilirubin Direct Bilirubin AST ALT Alkaline Phosphatase Total Creatine Kinase Troponin T Albumin Triglycerides Cholesterol HDL Cholesterol Urine Creatinine Urine Total Protein Salicylates Acetaminophen 11/29/18 11/29/18 11/30/18 22:02 23:58 05:51 WBC RBC Hgb Hct RDW Lymph % (Auto) Lymph # [place] # Seg Neutrophils % Seg Neuts % (Manual) Lymphocytes % (Manual) Nucleated RBC % Seg Neutrophils # Seg Neutrophils # Man Monocytes # (Manual) PT INR APTT 63.2 H* POC ABG pCO2 ABG pO2 ABG HCO3 ABG O2 Saturation ABG Base Excess ABG Hemoglobin Oxyhemoglobin Sodium Potassium Chloride Carbon Dioxide BUN Creatinine Glucose POC Glucose 183 H 156 H Hemoglobin A1c Lactic Acid Phosphorus Magnesium Total Bilirubin Direct Bilirubin AST ALT Alkaline Phosphatase Total Creatine Kinase Troponin T Albumin Triglycerides Cholesterol HDL Cholesterol Urine Creatinine Urine Total Protein Salicylates Acetaminophen 11/30/18 11/30/18 11/30/18 07:18 07:58 09:40 WBC 28.8 H RBC 6.58 H Hgb 18.2 H Hct 57.2 H* D RDW 19.3 H Lymph % (Auto) Lymph # [place] # Seg Neutrophils % Seg Neuts % (Manual) Lymphocytes % (Manual) Nucleated RBC % Seg Neutrophils # Seg Neutrophils # Man Monocytes # (Manual) PT INR APTT POC ABG pCO2 ABG pO2 ABG HCO3 ABG O2 Saturation ABG Base Excess ABG Hemoglobin Oxyhemoglobin Sodium 150 H Potassium Chloride 110.3 H Carbon Dioxide 20 L BUN Creatinine Glucose 149 H POC Glucose 190 H Hemoglobin A1c Lactic Acid Phosphorus Magnesium 3.20 H Total Bilirubin 3.70 H Direct Bilirubin AST 480 H ALT 213 H Alkaline Phosphatase 258 H Total Creatine Kinase Troponin T Albumin 3.4 L Triglycerides Cholesterol HDL Cholesterol Urine Creatinine Urine Total Protein Salicylates Acetaminophen 11/30/18 11/30/18 11/30/18 11:24 12:17 16:22 WBC RBC Hgb Hct RDW Lymph % (Auto) Lymph # [place] # Seg Neutrophils % Seg Neuts % (Manual) Lymphocytes % (Manual) Nucleated RBC % Seg Neutrophils # Seg Neutrophils # Man Monocytes # (Manual) PT INR APTT 62.1 H* POC ABG pCO2 ABG pO2 ABG HCO3 ABG O2 Saturation ABG Base Excess ABG Hemoglobin Oxyhemoglobin Sodium Potassium Chloride Carbon Dioxide BUN Creatinine Glucose POC Glucose 242 H 165 H Hemoglobin A1c Lactic Acid Phosphorus Magnesium Total Bilirubin Direct Bilirubin AST ALT Alkaline Phosphatase Total Creatine Kinase Troponin T Albumin Triglycerides Cholesterol HDL Cholesterol Urine Creatinine Urine Total Protein Salicylates Acetaminophen 11/30/18 12/01/18 12/01/18 21:32 05:32 05:32 WBC 24.7 H RBC 6.30 H Hgb 17.8 H Hct 54.2 H RDW 19.2 H Lymph % (Auto) Lymph # [place] # Seg Neutrophils % Seg Neuts % (Manual) 87.0 H Lymphocytes % (Manual) 10.0 L Nucleated RBC % 2.0 H Seg Neutrophils # Seg Neutrophils # Man 21.5 H Monocytes # (Manual) PT INR APTT 50.0 H POC ABG pCO2 ABG pO2 ABG HCO3 ABG O2 Saturation ABG Base Excess ABG Hemoglobin Oxyhemoglobin Sodium Potassium Chloride Carbon Dioxide BUN Creatinine Glucose POC Glucose 146 H Hemoglobin A1c Lactic Acid Phosphorus Magnesium Total Bilirubin Direct Bilirubin AST ALT Alkaline Phosphatase Total Creatine Kinase Troponin T Albumin Triglycerides Cholesterol HDL Cholesterol Urine Creatinine Urine Total Protein Salicylates Acetaminophen 12/01/18 12/01/18 12/01/18 07:45 10:39 11:35 WBC RBC Hgb Hct RDW Lymph % (Auto) Lymph # [place] # Seg Neutrophils % Seg Neuts % (Manual) Lymphocytes % (Manual) Nucleated RBC % Seg Neutrophils # Seg Neutrophils # Man Monocytes # (Manual) PT INR APTT POC ABG pCO2 30.6 L ABG pO2 ABG HCO3 ABG O2 Saturation ABG Base Excess ABG Hemoglobin Oxyhemoglobin Sodium Potassium Chloride Carbon Dioxide BUN Creatinine Glucose POC Glucose 179 H 219 H Hemoglobin A1c Lactic Acid Phosphorus Magnesium Total Bilirubin Direct Bilirubin AST ALT Alkaline Phosphatase Total Creatine Kinase Troponin T Albumin Triglycerides Cholesterol HDL Cholesterol Urine Creatinine Urine Total Protein Salicylates Acetaminophen
--- NOTE | 2018-12-01 12:37 | Progress Note ---
Assessment and Plan Assessment and plan: Hyperosmolar hyperglycemic state (HHS) in a newly diagnosed Diabetes-new onset -Patient was admitted to the ICU on insulin drip, now off Insulin drip -Continue serial BMP level monitoring -Cont. Novolin 70/30 Diabetes mellitus type 2-new onset Acute respiratory failure with hypoxia -Continue oxygen supplementation as needed Sepsis -CT abd/pelvis showed generalized bronchiectasis -Blood cultures no growth 72 hours Vtach s/p shocked 8 tiemes by AICD, as per interrogation, notes in paper chart Cont. Amiodarone cardiology following, b-ernesto added RODNEY planned for Thursday Occluded left anterior tibial and dorsalis pedis artery by arterial doppler consulted [facility], with Dr. Hernandez Cont. 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 O2 and BiPAP as clinically indicated. CATRACHO Continue CPAP during sleep and when necessary. Interstitial lung disease. Continue per pulmonary. 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 The aggregate critical care time was [33] minutes. This time is in addition to time spent performing reported procedures but includes the following: [x] Data Review and interpretation [x] Patient assessment and monitoring of vital signs [x] Documentation [x] Medication orders and management History Interval history: No new issues overnight Hospitalist Physical - Constitutional Vitals: Temp Pulse Resp BP Pulse Ox 97.4 F L 70 11 L 89/69 100 12/01/18 03:48 12/01/18 11:00 12/01/18 11:00 12/01/18 11:00 12/01/18 11:00 General appearance: Present: no acute distress - EENT Eyes: Present: PERRL, EOM intact ENT: hearing intact, clear oral mucosa, dentition normal - Neck Neck: Present: supple, normal ROM - Respiratory Respiratory effort: normal Respiratory: bilateral: CTA - Cardiovascular Rhythm: regular Heart Sounds: Present: S1 & S2. Absent: gallop, rub - Extremities Extremities: no ischemia, No edema, Full ROM - Abdominal General gastrointestinal: soft, non-tender, non-distended, normal bowel sounds - Integumentary Integumentary: Present: clear, warm, dry - Neurologic Neurologic: CNII-XII intact, moves all extremities Results - Labs CBC & Chem 7: 12/01/18 05:32 11/30/18 07:18 Labs: Laboratory Last Values WBC 24.7 K/mm3 (4.5-11.0) H 12/01/18 05:32 RBC 6.30 M/mm3 (3.65-5.03) H 12/01/18 05:32 Hgb 17.8 gm/dl (10.1-14.3) H 12/01/18 05:32 Hct 54.2 % (30.3-42.9) H 12/01/18 05:32 MCV 86 fl (79-97) 12/01/18 05:32 MCH 28 pg (28-32) 12/01/18 05:32 MCHC 33 % (30-34) 12/01/18 05:32 RDW 19.2 % (13.2-15.2) H 12/01/18 05:32 Plt Count 155 K/mm3 (140-440) 12/01/18 05:32 Lymph % (Auto) 6.3 % (13.4-35.0) L 11/28/18 01:01 Pierce % (Auto) 6.1 % (0.0-7.3) 11/28/18 01:01 Eos % (Auto) 0.0 % (0.0-4.3) 11/28/18 01:01 Baso % (Auto) 0.4 % (0.0-1.8) 11/28/18 01:01 Lymph # 0.9 K/mm3 (1.2-5.4) L 11/28/18 01:01 Pierce # 0.9 K/mm3 (0.0-0.8) H 11/28/18 01:01 Eos # 0.0 K/mm3 (0.0-0.4) 11/28/18 01:01 Baso # 0.1 K/mm3 (0.0-0.1) 11/28/18 01:01 Add Manual Diff Complete 12/01/18 05:32 Total Counted 100 12/01/18 05:32 Seg Neutrophils % 87.2 % (40.0-70.0) H 11/28/18 01:01 Seg Neuts % (Manual) 87.0 % (40.0-70.0) H 12/01/18 05:32 0 % 12/01/18 05:32 10.0 % (13.4-35.0) L 12/01/18 05:32 Reactive Lymphs % (Man) 0 % 12/01/18 05:32 3.0 % (0.0-7.3) 12/01/18 05:32 0 % (0.0-4.3) 12/01/18 05:32 0 % (0.0-1.8) 12/01/18 05:32 0 % 12/01/18 05:32 0 % 12/01/18 05:32 0 % 12/01/18 05:32 0 % 12/01/18 05:32 Nucleated RBC % 2.0 % (0.0-0.9) H 12/01/18 05:32 Seg Neutrophils # 13.2 K/mm3 (1.8-7.7) H 11/28/18 01:01 Seg Neutrophils # Man 21.5 K/mm3 (1.8-7.7) H 12/01/18 05:32 Band Neutrophils # 0.0 K/mm3 12/01/18 05:32 2.5 K/mm3 (1.2-5.4) 12/01/18 05:32 Abs React Lymphs (Man) 0.0 K/mm3 12/01/18 05:32 0.7 K/mm3 (0.0-0.8) 12/01/18 05:32 0.0 K/mm3 (0.0-0.4) 12/01/18 05:32 0.0 K/mm3 (0.0-0.1) 12/01/18 05:32 0.0 K/mm3 12/01/18 05:32 0.0 K/mm3 12/01/18 05:32 0.0 K/mm3 12/01/18 05:32 Blast Cells # 0.0 K/mm3 12/01/18 05:32 WBC Morphology Not Reportable 12/01/18 05:32 Hypersegmented Neuts Not Reportable 12/01/18 05:32 Hyposegmented Neuts Not Reportable 12/01/18 05:32 Hypogranular Neuts Not Reportable 12/01/18 05:32 Not Reportable 12/01/18 05:32 Not Reportable 12/01/18 05:32 Not Reportable 12/01/18 05:32 Not Reportable 12/01/18 05:32 Not Reportable 12/01/18 05:32 Not Reportable 12/01/18 05:32 Consistent w auto 12/01/18 05:32 Not Reportable 12/01/18 05:32 Plt Clumps, EDTA Not Reportable 12/01/18 05:32 Not Reportable 12/01/18 05:32 Not Reportable 12/01/18 05:32 Not Reportable 12/01/18 05:32 Plt Morphology Comment Not Reportable 12/01/18 05:32 RBC Morphology Not Reportable 12/01/18 05:32 Dimorphic RBCs Not Reportable 12/01/18 05:32 Not Reportable 12/01/18 05:32 Not Reportable 12/01/18 05:32 Not Reportable 12/01/18 05:32 1+ 12/01/18 05:32 Not Reportable 12/01/18 05:32 Not Reportable 12/01/18 05:32 Not Reportable 12/01/18 05:32 Not Reportable 12/01/18 05:32 Not Reportable 12/01/18 05:32 Not Reportable 12/01/18 05:32 Not Reportable 12/01/18 05:32 Not Reportable 12/01/18 05:32 Not Reportable 12/01/18 05:32 Not Reportable 12/01/18 05:32 Not Reportable 12/01/18 05:32 Not Reportable 12/01/18 05:32 Not Reportable 12/01/18 05:32 Not Reportable 12/01/18 05:32 Not Reportable 12/01/18 05:32 Acanthocytes (Spur) Not Reportable 12/01/18 05:32 Rouleaux Not Reportable 12/01/18 05:32 Not Reportable 12/01/18 05:32 Not Reportable 12/01/18 05:32 Not Reportable 12/01/18 05:32 Not Reportable 12/01/18 05:32 Hem Pathologist Commnt No 12/01/18 05:32 PT 15.6 Sec. (12.2-14.9) H 11/28/18 01:01 INR 1.27 (0.87-1.13) H 11/28/18 01:01 APTT 50.0 Sec. (24.2-36.6) H 12/01/18 05:32 POC ABG pH 7.413 (7.35-7.45) 12/01/18 10:39 ABG pH 7.414 pH Units (7.350-7.450) 11/28/18 01:01 POC ABG pCO2 30.6 (35-45) L 12/01/18 10:39 ABG pCO2 48.8 mm Hg 11/28/18 01:01 POC ABG pO2 95 (80-105) 12/01/18 10:39 ABG pO2 65.7 mm Hg (80.0-90.0) L 11/28/18 01:01 POC ABG HCO3 19.5 (22-26 mml/L) 12/01/18 10:39 ABG HCO3 30.5 mmol/L (20.0-26.0) H 11/28/18 01:01 POC ABG Total CO2 20 (23-27mmol/L) 12/01/18 10:39 POC ABG O2 Sat 98 12/01/18 10:39 ABG O2 Saturation 91.3 % (95.0-99.0) L 11/28/18 01:01 ABG O2 Content 22.2 (0.0-44) 11/28/18 01:01 POC ABG Base Excess -5 ((-2) - (+3)mmol/L) 12/01/18 10:39 ABG Base Excess 4.6 mmol/L (-2.0-3.0) H 11/28/18 01:01 ABG Hemoglobin 18.0 gm/dl (12.0-16.0) H 11/28/18 01:01 ABG Carboxyhemoglobin 3.1 % (0.0-5.0) 11/28/18 01:01 ABG Methemoglobin 0.5 % (0.0-1.5) 11/28/18 01:01 VBG pH 7.414 (7.320-7.420) 11/28/18 01:01 88.0 % (95.0-99.0) L 11/28/18 01:01 28 % 12/01/18 10:39 Sodium 150 mmol/L (137-145) H 11/30/18 07:18 Potassium 4.8 mmol/L (3.6-5.0) 11/30/18 07:18 Chloride 110.3 mmol/L (98-107) H 11/30/18 07:18 Carbon Dioxide 20 mmol/L (22-30) L 11/30/18 07:18 25 mmol/L 11/30/18 07:18 BUN 17 mg/dL (7-17) 11/30/18 07:18 1.0 mg/dL (0.7-1.2) 11/30/18 07:18 Estimated GFR > 60 ml/min 11/30/18 07:18 17 % 11/30/18 07:18 Glucose 149 mg/dL (65-100) H 11/30/18 07:18 POC Glucose 219 (70-105) H 12/01/18 11:35 12.5 % (4-6) H 11/28/18 01:01 Lactic Acid 5.00 mmol/L (0.7-2.0) H* 11/28/18 15:14 Calcium 9.3 mg/dL (8.4-10.2) 11/30/18 07:18 Phosphorus 3.30 mg/dL (2.5-4.5) 11/30/18 07:18 Magnesium 3.20 mg/dL (1.7-2.3) H 11/30/18 07:18 3.70 mg/dL (0.1-1.2) H 11/30/18 07:18 1.3 mg/dL (0-0.2) H 11/28/18 01:01 1.1 mg/dL 11/28/18 01:01 AST 480 units/L (5-40) H 11/30/18 07:18 ALT 213 units/L (7-56) H 11/30/18 07:18 258 units/L (35-129) H 11/30/18 07:18 30.0 umol/L (25-60) 11/28/18 01:01 228 units/L (30-135) H 11/28/18 01:01 0.030 ng/mL (0.00-0.029) H D 11/28/18 07:50 7.6 g/dL (6.3-8.2) 11/30/18 07:18 3.4 g/dL (3.9-5) L 11/30/18 07:18 0.8 % 11/30/18 07:18 Triglycerides 356 mg/dL (2-149) H 11/28/18 01:01 Cholesterol 200 mg/dL (50-199) H 11/28/18 01:01 125 mg/dL (50-130) 11/28/18 01:01 39 mg/dL (40-59) L 11/28/18 01:01 5.12 % 11/28/18 01:01 TSH 0.288 mlU/mL (0.270-4.200) 11/28/18 01:01 HCG, Quant < 2 mIU/mL (0-4) 11/28/18 01:01 Straw (Yellow) 11/28/18 00:37 Clear (Clear) 11/28/18 00:37 7.0 (5.0-7.0) 11/28/18 00:37 Ur Specific [place] 1.023 (1.003-1.030) 11/28/18 00:37 30 mg/dl mg/dL (Negative) 11/28/18 00:37 >=500 mg/dL (Negative) 11/28/18 00:37 Tr mg/dL (Negative) 11/28/18 00:37 Sm (Negative) 11/28/18 00:37 Neg (Negative) 11/28/18 00:37 Neg (Negative) 11/28/18 00:37 < 2.0 mg/dL (<2.0) 11/28/18 00:37 Ur Leukocyte Esterase Neg (Negative) 11/28/18 00:37 < 1.0 /HPF (0.0-6.0) 11/28/18 00:37 1.0 /HPF (0.0-6.0) 11/28/18 00:37 None seen (None Seen) 11/29/18 13:40 117.4 mg/dL (0.1-20.0) H 11/29/18 13:40 53 mmol/L 11/29/18 13:40 120 mg/dL (5-11.8) H 11/29/18 13:40 Urine HCG, Qual Negative (Negative) 11/28/18 Unknown Salicylates < 0.3 mg/dL (2.8-20.0) L 11/28/18 01:01 Presumptive negative 11/28/18 00:37 Presumptive negative 11/28/18 00:37 Acetaminophen < 5.0 ug/mL (10.0-30.0) L 11/28/18 01:01 Ur Barbiturates Screen Presumptive negative 11/28/18 00:37 Ur Phencyclidine Scrn Presumptive negative 11/28/18 00:37 Ur Amphetamines Screen Presumptive negative 11/28/18 00:37 U Benzodiazepines Scrn Presumptive negative 11/28/18 00:37 Presumptive negative 11/28/18 00:37 U Marijuana (THC) Screen Presumptive negative 11/28/18 00:37 Disclamer 11/28/18 00:37 Plasma/Serum Alcohol < 0.01 % (0-0.07) 11/28/18 01:01 Blood Type B POSITIVE 11/28/18 01:01 Antibody Screen Negative 11/28/18 01:01 Active Medications - Current Medications Current Medications: Generic Name Dose Route Start Last Admin Trade Name Freq PRN Reason Stop Dose Admin Acetaminophen 650 mg 11/28/18 03:02 Tylenol PO Q4H PRN Pain MILD(1-3)/Fever >100.5/TURPIN Alprazolam 0.25 mg 11/30/18 01:09 11/30/18 01:21 Xanax PO 0.25 mg Q8H PRN Administration Anxiety Amitriptyline HCl 25 mg 11/29/18 22:00 11/30/18 22:55 Elavil PO 25 mg HS VIOLA Administration Aspirin 81 mg 11/29/18 10:00 12/01/18 09:17 Baby Aspirin PO 81 mg QDAY VIOLA Administration Dextrose 0 ml 11/28/18 02:19 D50w (25gm) Syringe IV PRN PRN Hypoglycemia Fluticasone Propionate 50 mcg 11/29/18 10:00 12/01/18 09:56 Flonase NS 50 mcg BID VIOLA Administration Hydralazine HCl 10 mg 11/28/18 03:41 Apresoline IV Q6HR PRN Blood Pressure Hydrophilic Ointment 1 applic 11/30/18 11:55 Vaseline Lip Therapy TP DIRECT PRN DRY LIPS Amiodarone HCl 900 mg/ 500 mls @ 33.333 mls/hr 11/28/18 15:00 12/01/18 02:17 Dextrose IV 1 mg/min DIRECT VIOLA 33.333 mls/hr Administration Protocol 1 MG/MIN Argatroban 250 mg/ Sodium 250 mls @ 3.682 mls/hr 11/29/18 13:00 12/01/18 02:17 Chloride IV 0.5 mcg/kg/min TITR VIOLA 3.682 mls/hr Administration Protocol 0.5 MCG/KG/MIN Insulin Human Isoph/Insulin Regular 10 unit 11/29/18 11:00 12/01/18 08:27 Humulin 70/30 SUB-Q 10 unit BIDDIAB VIOLA Administration Insulin Human Lispro 0 unit 11/30/18 09:00 12/01/18 11:33 Humalog SUB-Q 3 unit ACHS VIOLA Administration Protocol Metoprolol Tartrate 25 mg 11/30/18 14:00 11/30/18 22:57 Lopressor PO 25 mg Q8HR VIOLA Administration Montelukast Sodium 10 mg 11/29/18 18:00 11/30/18 17:55 Singulair PO 10 mg QPM VIOLA Administration Morphine Sulfate 2 mg 11/28/18 03:02 11/30/18 22:59 Morphine IV 2 mg Q4H PRN Administration Pain, Moderate (4-6) Nitroglycerin 0.75 inch 11/29/18 14:00 12/01/18 09:18 Nitro-Bid 2% TP 0.75 inch QIDNTG VIOLA Administration Protocol Ondansetron HCl 4 mg 11/28/18 03:02 Zofran IV Q8H PRN Nausea And Vomiting Pantoprazole Sodium 40 mg 11/29/18 10:00 12/01/18 09:18 Protonix PO 40 mg QDAY VIOLA Administration Pentoxifylline 400 mg 11/29/18 13:00 12/01/18 09:18 Trental PO 400 mg Q12HR VIOLA Administration Prednisone 50 mg 11/29/18 10:00 12/01/18 09:17 Deltasone PO 50 mg QDAY VIOLA Administration Sodium Chloride 10 ml 11/28/18 10:00 12/01/18 09:18 Sodium Chloride Flush Syringe 10 Ml IV 10 ml BID VIOLA Administration Sodium Chloride 10 ml 11/28/18 03:02 Sodium Chloride Flush Syringe 10 Ml IV PRN PRN LINE FLUSH Nutrition/Malnutrition Assess - Dietary Evaluation Nutrition/Malnutrition Findings: Nutrition Notes Start: 11/29/18 14:34 Freq: Status: Active Protocol: Document 11/29/18 14:35 LM (Rec: 11/29/18 14:40 LM [id number]) Nutrition Notes Need for Assessment generated from: Education Initial or Follow up Brief Note Current Diagnosis Diabetes,Hypertension Subjective/Other Information Consult for DM education. #1 Nutrition Diagnosis Food and nutrition-related knowledge deficit Etiology No prior DM diet education As Evidenced by Signs and Symptoms Pt statement of needing DM diet education, HGB A1C of 12. 5, BG 203 Nutrition Intervention Teaching Recipient Patient Learning Readiness Good Teaching Methods Discussion,Handout Education Handouts Provided Carbohydrate Counting for People with Diabetes RD phone number provided Yes Patient aware of follow up options Yes Revisit per MD consult or patient Sign Off request:
[2018-12-01] MEDS: XYLOCAINE 2% INFILTRATI ONE ×2 (12:40→12:51)
--- NOTE | 2018-12-01 13:03 | Progress Note ---
Assessment and Plan Patient will undergo PICC line placement for lack of IV access. Patient scheduled for RODNEY on Thursday. Patient's creatinine is down however, as opposed to a CTA of the abdomen and pelvis with associated contrast load, we'll obtain ultrasound of the abdominal aorta. Subjective Date of service: 12/01/18 Principal diagnosis: thrombosis, acute kidney injury, electrolyte abnormalities Interval history: Patient with a history of ischemic changes the hands and feet. She underwent echocardiogram with RODNEY scheduled for Thursday. No source of embolic disease yet. Patient does have scleroderma with recent medication changes. Objective - Constitutional Vitals: Vital Signs - 12hr 12/01/18 12/01/18 12/01/18 01:01 01:11 01:21 Temperature Pulse Rate 70 70 70 Pulse Rate [ Left Radial] Respiratory 59 H 38 H 34 H Rate Blood Pressure 87/63 87/63 87/63 O2 Sat by Pulse Oximetry 12/01/18 12/01/18 12/01/18 01:31 01:41 01:51 Temperature Pulse Rate 70 70 72 Pulse Rate [ Left Radial] Respiratory 56 H 29 H 54 H Rate Blood Pressure 87/63 87/63 87/63 O2 Sat by Pulse Oximetry 12/01/18 12/01/18 12/01/18 02:00 02:11 02:21 Temperature Pulse Rate 70 71 75 Pulse Rate [ Left Radial] Respiratory 60 H 37 H 59 H Rate Blood Pressure 121/62 87/63 87/63 O2 Sat by Pulse Oximetry 12/01/18 12/01/18 12/01/18 02:31 02:41 02:51 Temperature Pulse Rate 73 73 73 Pulse Rate [ Left Radial] Respiratory 50 H 44 H 41 H Rate Blood Pressure 87/63 87/63 87/63 O2 Sat by Pulse Oximetry 12/01/18 12/01/18 12/01/18 03:01 03:11 03:21 Temperature Pulse Rate 74 74 74 Pulse Rate [ Left Radial] Respiratory 51 H 57 H 50 H Rate Blood Pressure 87/63 87/63 87/63 O2 Sat by Pulse Oximetry 12/01/18 12/01/18 12/01/18 03:31 03:41 03:48 Temperature 97.4 F L Pulse Rate 71 76 Pulse Rate [ Left Radial] Respiratory 32 H 57 H Rate Blood Pressure 87/63 87/63 O2 Sat by Pulse Oximetry 08/12/01/18 12/01/18 03:51 04:00 04:01 Temperature Pulse Rate 75 74 76 Pulse Rate [ 90 Left Radial] Respiratory 53 H 47 H 38 H Rate Blood Pressure 87/63 87/63 O2 Sat by Pulse 99 Oximetry 12/01/18 12/01/18 12/01/18 04:11 04:21 04:31 Temperature Pulse Rate 78 75 75 Pulse Rate [ Left Radial] Respiratory 56 H 50 H 52 H Rate Blood Pressure 87/63 137/57 101/68 O2 Sat by Pulse 97 96 Oximetry 12/01/18 12/01/18 12/01/18 04:41 04:51 05:01 Temperature Pulse Rate 76 76 76 Pulse Rate [ Left Radial] Respiratory 43 H 55 H 44 H Rate Blood Pressure 101/68 101/68 101/68 O2 Sat by Pulse 100 100 99 Oximetry 12/01/18 12/01/18 12/01/18 05:11 05:21 05:31 Temperature Pulse Rate 75 75 75 Pulse Rate [ Left Radial] Respiratory 41 H 43 H 40 H Rate Blood Pressure 124/105 124/105 124/105 O2 Sat by Pulse 100 100 100 Oximetry 12/01/18 12/01/18 12/01/18 05:41 05:51 06:01 Temperature Pulse Rate 76 75 75 Pulse Rate [ Left Radial] Respiratory 53 H 53 H 51 H Rate Blood Pressure 124/105 124/105 124/105 O2 Sat by Pulse 100 100 96 Oximetry 12/01/18 12/01/18 12/01/18 06:11 06:21 06:31 Temperature Pulse Rate 77 70 72 Pulse Rate [ Left Radial] Respiratory 57 H 52 H 43 H Rate Blood Pressure 124/105 124/105 85/32 O2 Sat by Pulse 99 100 92 Oximetry 12/01/18 12/01/18 12/01/18 06:41 06:51 07:01 Temperature Pulse Rate 70 70 70 Pulse Rate [ Left Radial] Respiratory 53 H 29 H 53 H Rate Blood Pressure 67/33 100/76 123/49 O2 Sat by Pulse 100 96 98 Oximetry 12/01/18 12/01/18 12/01/18 07:11 07:21 07:31 Temperature Pulse Rate 70 70 70 Pulse Rate [ Left Radial] Respiratory 45 H 54 H 36 H Rate Blood Pressure 123/49 123/49 123/49 O2 Sat by Pulse 99 91 71 L Oximetry 12/01/18 12/01/18 12/01/18 07:41 07:51 08:00 Temperature Pulse Rate 70 70 Pulse Rate [ 90 Left Radial] Respiratory 44 H 14 25 H Rate Blood Pressure 103/68 103/68 O2 Sat by Pulse 96 99 Oximetry 12/01/18 12/01/18 12/01/18 08:01 08:11 08:21 Temperature Pulse Rate 70 70 70 Pulse Rate [ Left Radial] Respiratory 17 21 19 Rate Blood Pressure 123/49 97/63 97/63 O2 Sat by Pulse 52 L 77 L 100 Oximetry 12/01/18 12/01/18 12/01/18 08:31 08:40 08:51 Temperature Pulse Rate 70 70 70 Pulse Rate [ Left Radial] Respiratory 46 H 20 51 H Rate Blood Pressure 97/63 77/32 77/32 O2 Sat by Pulse 86 99 86 Oximetry 12/01/18 12/01/18 12/01/18 09:01 09:11 09:18 Temperature Pulse Rate 70 70 70 Pulse Rate [ Left Radial] Respiratory 18 52 H Rate Blood Pressure 77/32 139/107 139/107 O2 Sat by Pulse 74 L 73 L Oximetry 12/01/18 12/01/18 12/01/18 09:21 09:31 09:41 Temperature Pulse Rate 70 70 70 Pulse Rate [ Left Radial] Respiratory 26 H 29 H 37 H Rate Blood Pressure 139/107 77/32 77/32 O2 Sat by Pulse 63 L 74 L 69 L Oximetry 12/01/18 12/01/18 12/01/18 09:51 10:00 10:11 Temperature Pulse Rate 70 70 70 Pulse Rate [ Left Radial] Respiratory 44 H 48 H 40 H Rate Blood Pressure 77/32 108/77 108/77 O2 Sat by Pulse 62 L 100 98 Oximetry 12/01/18 12/01/18 12/01/18 10:21 10:30 10:41 Temperature Pulse Rate 70 70 70 Pulse Rate [ Left Radial] Respiratory 9 L 20 51 H Rate Blood Pressure 108/77 108/77 108/77 O2 Sat by Pulse 100 100 97 Oximetry 12/01/18 12/01/18 10:51 11:00 Temperature Pulse Rate 70 70 Pulse Rate [ Left Radial] Respiratory 56 H 11 L Rate Blood Pressure 108/77 89/69 O2 Sat by Pulse 99 100 Oximetry General appearance: Present: no acute distress - EENT Eyes: EOM intact ENT: hearing intact - Neck Neck: supple - Respiratory Respiratory effort: normal - Breasts Breasts: deferred Extremities: abnormal - Gastrointestinal General gastrointestinal: Present: deferred Rectal Exam: deferred - Genitourinary Female genitourinary: deferred - Psychiatric Psychiatric: cooperative - Labs CBC & Chem 7: 12/01/18 05:32 11/30/18 07:18 Labs: Abnormal lab results 11/30/18 11/30/18 12/01/18 Range/Units 16:22 21:32 05:32 WBC (4.5-11.0) K/mm3 RBC (3.65-5.03) M/mm3 Hgb (10.1-14.3) gm/dl Hct (30.3-42.9) % RDW (13.2-15.2) % Seg Neuts % (Manual) (40.0-70.0) % Lymphocytes % (Manual) (13.4-35.0) % Nucleated RBC % (0.0-0.9) % Seg Neutrophils # Man (1.8-7.7) K/mm3 APTT 50.0 H (24.2-36.6) Sec. POC ABG pCO2 (35-45) POC Glucose 165 H 146 H (70-105) 12/01/18 12/01/18 12/01/18 Range/Units 05:32 07:45 10:39 WBC 24.7 H (4.5-11.0) K/mm3 RBC 6.30 H (3.65-5.03) M/mm3 Hgb 17.8 H (10.1-14.3) gm/dl Hct 54.2 H (30.3-42.9) % RDW 19.2 H (13.2-15.2) % Seg Neuts % (Manual) 87.0 H (40.0-70.0) % Lymphocytes % (Manual) 10.0 L (13.4-35.0) % Nucleated RBC % 2.0 H (0.0-0.9) % Seg Neutrophils # Man 21.5 H (1.8-7.7) K/mm3 APTT (24.2-36.6) Sec. POC ABG pCO2 30.6 L (35-45) POC Glucose 179 H (70-105) 08/21/19 Range/Units 11:35 WBC (4.5-11.0) K/mm3 RBC (3.65-5.03) M/mm3 Hgb (10.1-14.3) gm/dl Hct (30.3-42.9) % RDW (13.2-15.2) % Seg Neuts % (Manual) (40.0-70.0) % Lymphocytes % (Manual) (13.4-35.0) % Nucleated RBC % (0.0-0.9) % Seg Neutrophils # Man (1.8-7.7) K/mm3 APTT (24.2-36.6) Sec. POC ABG pCO2 (35-45) POC Glucose 219 H (70-105) Medications & Allergies - Medications Allergies/Adverse Reactions: Allergies lisinopril Adverse Reaction (Severe, Verified 12/17/13 19:00) SORE THROAT;PERSISTENT COUGH Home Medications: Home Medications Medication Instructions Recorded Confirmed Last Taken Type Aspirin [Aspirin BABY CHEW TAB] 81 mg PO QDAY 11/28/18 11/29/18 11/26/18 History Fluticasone [Flonase] 1 spray NS BID 11/28/18 11/28/18 Unknown History Furosemide [Lasix TAB] 40 mg PO BID 11/28/18 11/28/18 Unknown History Ibuprofen [Motrin] 600 mg PO Q6H PRN 11/28/18 11/28/18 Unknown History Montelukast [Singulair] 10 mg PO QPM 11/28/18 11/28/18 Unknown History Mycophenolate [Cellcept] 500 mg PO BID 11/28/18 11/28/18 Unknown History Mycophenolate [Cellcept] 500 mg PO BID PRN MDD 2 TABS 11/28/18 11/28/18 Unknown History Pantoprazole [Protonix] 40 mg PO QDAY 11/28/18 11/28/18 Unknown History Sacubitril/Valsartan [Entresto 1 each PO BID 11/28/18 11/28/18 Unknown History 49-51 mg] predniSONE [Deltasone] 50 mg PO QDAY 11/28/18 11/28/18 Unknown History raNITIdine HCl [Zantac] 150 mg PO BID 11/28/18 11/28/18 Unknown History Amitriptyline [Elavil] 25 mg PO HS 11/29/18 11/29/18 11/26/18 History Aspirin [Adult Aspirin] 81 mg PO ONCE 11/29/18 11/29/18 11/26/18 History Entresto 49-51 mg 49 mg PO BID 11/29/18 11/29/18 11/26/18 History HYDROcodone/APAP 5-325 5 mg PO Q6HR PRN 11/29/18 11/29/18 Unknown History Active Medications: Generic Name Dose Route Start Last Admin Trade Name Freq PRN Reason Stop Dose Admin Acetaminophen 650 mg 11/28/18 03:02 Tylenol PO Q4H PRN Pain MILD(1-3)/Fever >100.5/TURPIN Alprazolam 0.25 mg 11/30/18 01:09 11/30/18 01:21 Xanax PO 0.25 mg Q8H PRN Administration Anxiety Amitriptyline HCl 25 mg 11/29/18 22:00 11/30/18 22:55 Elavil PO 25 mg HS VIOLA Administration Aspirin 81 mg 11/29/18 10:00 12/01/18 09:17 Baby Aspirin PO 81 mg QDAY VIOLA Administration Dextrose 0 ml 11/28/18 02:19 D50w (25gm) Syringe IV PRN PRN Hypoglycemia Fluticasone Propionate 50 mcg 11/29/18 10:00 12/01/18 09:56 Flonase NS 50 mcg BID VIOLA Administration Hydralazine HCl 10 mg 11/28/18 03:41 Apresoline IV Q6HR PRN Blood Pressure Hydrophilic Ointment 1 applic 11/30/18 11:55 Vaseline Lip Therapy TP DIRECT PRN DRY LIPS Amiodarone HCl 900 mg/ 500 mls @ 33.333 mls/hr 11/28/18 15:00 12/01/18 02:17 Dextrose IV 1 mg/min DIRECT VIOLA 33.333 mls/hr Administration Protocol 1 MG/MIN Argatroban 250 mg/ Sodium 250 mls @ 3.682 mls/hr 11/29/18 13:00 12/01/18 02:17 Chloride IV 0.5 mcg/kg/min TITR VIOLA 3.682 mls/hr Administration Protocol 0.5 MCG/KG/MIN Insulin Human Isoph/Insulin Regular 10 unit 11/29/18 11:00 12/01/18 08:27 Humulin 70/30 SUB-Q 10 unit BIDDIAB VIOLA Administration Insulin Human Lispro 0 unit 11/30/18 09:00 12/01/18 11:33 Humalog SUB-Q 3 unit ACHS VIOLA Administration Protocol Metoprolol Tartrate 25 mg 11/30/18 14:00 11/30/18 22:57 Lopressor PO 25 mg Q8HR VIOLA Administration Montelukast Sodium 10 mg 11/29/18 18:00 11/30/18 17:55 Singulair PO 10 mg QPM VIOLA Administration Morphine Sulfate 2 mg 11/28/18 03:02 11/30/18 22:59 Morphine IV 2 mg Q4H PRN Administration Pain, Moderate (4-6) Nitroglycerin 0.75 inch 11/29/18 14:00 12/01/18 09:18 Nitro-Bid 2% TP 0.75 inch QIDNTG VIOLA Administration Protocol Ondansetron HCl 4 mg 11/28/18 03:02 Zofran IV Q8H PRN Nausea And Vomiting Pantoprazole Sodium 40 mg 11/29/18 10:00 12/01/18 09:18 Protonix PO 40 mg QDAY VIOLA Administration Pentoxifylline 400 mg 11/29/18 13:00 12/01/18 09:18 Trental PO 400 mg Q12HR VIOLA Administration Prednisone 50 mg 11/29/18 10:00 12/01/18 09:17 Deltasone PO 50 mg QDAY VIOLA Administration Sodium Chloride 10 ml 11/28/18 10:00 12/01/18 09:18 Sodium Chloride Flush Syringe 10 Ml IV 10 ml BID VIOLA Administration Sodium Chloride 10 ml 11/28/18 03:02 Sodium Chloride Flush Syringe 10 Ml IV PRN PRN LINE FLUSH
--- NOTE | 2018-12-01 13:08 | Operative Report ---
Operative Report Operative Report: Exam: Ultrasound and fluoroscopic guided PICC placement Clinical indication: Patient with no venous access Date: 12/01/2018 Procedure: Following an explanation of the risks, benefits and alternatives; written informed consent was obtained. The patient was brought to the angiographic suite and placed in supine position on the examination table. Initial evaluation of her arm demonstrated diminutive veins. The patient's right arm was prepped and draped in the usual sterile fashion. 1% lidocaine was used for anesthesia. Under ultrasound guidance, a 7 cm 21-gauge needle was advanced into the right brachial vein. A 0.018 guidewire was advanced centrally. The needle was removed and the dilator from a micro-sheath placed. Contrast was injected each demonstrated diminutive brachial vein however, there is in-line flow to the right atrium. A 0.018 guidewire was advanced into the IVC under fluoroscopy. The dilator was removed and a 5.5 [place] peel-away sheath was advanced over the guidewire. A standard guidewire measurements, the guidewire was removed and the PICC cut to length and inserted to the peel-away sheath. The guidewire was then reinserted through the PICC to appropriately track so that the tip of the catheter is in the proximal right atrium. The guidewire was removed. Both p orts flushed and aspirated easily or more than left with sterile saline. The catheter was securely fastened to the skin surface using a StatLock device and a sterile dressing applied. The patient tolerated the procedure well. There were no immediate post procedure complications. No sedation was utilized. Continuous cardiopulmonary monitoring was utilized. Impression: Ultrasound and fluoroscopic guided PICC placement via the right brachial vein.
[2018-12-01] MEDS: LOPRESSOR PO SCH ×3 (14:22→21:22)
[2018-12-01] MEDS: SINGULAIR PO SCH (17:17)
--- NOTE | 2018-12-01 20:14 | XRay Report ---
CHEST 1 VIEW 12/01/2018 7:05 PM INDICATION / CLINICAL INFORMATION: dyspnea. COMPARISON: Chest x-ray on 11/28/2018. FINDINGS: SUPPORT DEVICES: Right upper extremity PICC has been placed with the tip projecting good position ove r the superior cavoatrial junction. Cardiac pacemaker/ICD appears unchanged. HEART / MEDIASTINUM: Stable mild cardiomegaly. LUNGS / PLEURA: Stable mild bibasilar subsegmental atelectasis. No significant consolidation or pleur al effusion. No pneumothorax. ADDITIONAL FINDINGS: No significant additional findings. IMPRESSION: 1. No adverse change from prior chest x-ray on 11/28/2018. Signer Name: Mario Ovalles MD Signed: 12/01/2018 8:10 PM Workstation Name: [id number]
[2018-12-01] MEDS: ELAVIL PO SCH (21:22)
[2018-12-01] MEDS: MORPHINE IV PRN (21:24)
[2018-12-02] MEDS: MORPHINE IV PRN (03:58)
[2018-12-02 05:32] LABS: Hematocrit 53.9 % (30.3-42.9); Hemoglobin 17.5 gm/dl (10.1-14.3); Mean Corpuscular HGB Conc 32 % (30-34); Mean Corpuscular Volume 86 fl (79-97); Red Blood Count 6.28 M/mm3 (3.65-5.03); Red Cell Distribution Width 19.3 % (13.2-15.2)
[2018-12-02 05:57] LABS: Albumin 2.6 g/dL (3.9-5)
[2018-12-02] MEDS: LOPRESSOR PO SCH ×3 (06:17→21:31)
[2018-12-02] MEDS: NITRO-BID 2% TP SCH ×3 (06:17→14:02)
[2018-12-02 06:21] LABS: Basophils % (Manual) 0 % (0.0-1.8); Eosinophils % (Manual) 0 % (0.0-4.3); Total Cells Counted 100
[2018-12-02 06:23] LABS: Anisocytosis Few; Macrocytosis Few; Platelet Estimate Consistent w Auto
[2018-12-02 06:24] LABS: Platelet Count 166 K/mm3 (140-440)
[2018-12-02] MEDS: HumaLOG SUB-Q SCH ×4 (07:42→21:56)
--- NOTE | 2018-12-02 07:53 | Hem/Onc Progress Note ---
Assessment and Plan Peripheral extremities both lower and left upper extremity thromboembolic disease. This may be related to her generalized disease etiology versus rheumatology issue versus embolic phenomena. I had discussed with Cardiology, transthoracic echo has been done to see if there is any source of thrombus. If source is found, then oral anticoagulation is an option. At this time, the patient is on argatroban. There is a question if this is HIT. However, the platelet count is not low. HIT test has been ordered. 1. Elevated bilirubin. 2. Electrolyte imbalance. 3. Arterial thrombus, on anticoagulation. 4. Diabetic ketoacidosis. 5. Hypertension. 6. Ischemic cardiomyopathy with low ejection fraction. 7. Respiratory failure. 8. Sepsis, elevated troponin /CPK. I will follow the patient during inpatient stay and then in the clinic setting. The cause of thromboembolism is not clear. White cell count is high. There is a question if this has any relation. echo done RODNEY planned HIT pending had low BP high hct likely sec to sleep apnea pt had low BP - has low EF dark toes - with arterial thrombus once HIT neg - ? change argatroban to other forms or ct argatroban- ? Iv preferred as more procedures will be planned - Patient Problems (1) Ischemia Current Visit: Yes Status: Acute Subjective Date of service: 12/02/18 Principal diagnosis: thrombus Interval history: awake - dark foes and left finger Objective - Exam Narrative Exam: Pain - hand and leg General appearance pain Performance status limited self care Eyes - no icterus ENT - no bleeding LNs cervical not palpable Neck - no LN Respiratory Normal Breath sounds - CTA CVS S1 S2 + Extremities cold toes and dark left hand finger General GI Soft Rectal deferred female - deferred Skin warm Musculoskeletal moving extremitites - dark foot and left hand finger Neurologically awake - Constitutional Vitals: Last Vital Signs Temp 97.5 F L 12/01/18 15:00 Pulse 70 12/02/18 07:41 Resp 19 12/02/18 07:41 BP 105/63 12/02/18 07:41 Pulse Ox 98 12/02/18 07:41 - Labs Lab Results: Laboratory Results - last 24 hr 12/01/18 12/01/18 12/01/18 10:39 11:35 13:45 WBC RBC Hgb Hct MCV MCH MCHC RDW Plt Count Add Manual Diff Total Counted Seg Neuts % (Manual) Band Neutrophils % Lymphocytes % (Manual) Reactive Lymphs % (Man) Monocytes % (Manual) Eosinophils % (Manual) Basophils % (Manual) Metamyelocytes % Myelocytes % Promyelocytes % Blast Cells % Nucleated RBC % Seg Neutrophils # Man Band Neutrophils # Lymphocytes # (Manual) Abs React Lymphs (Man) Monocytes # (Manual) Eosinophils # (Manual) Basophils # (Manual) Metamyelocytes # Myelocytes # Promyelocytes # Blast Cells # WBC Morphology Hypersegmented Neuts Hyposegmented Neuts Hypogranular Neuts Smudge Cells Toxic Granulation Toxic Vacuolation Dohle Bodies Pelger-Huet Anomaly Rosalva Rods Platelet Estimate Clumped Platelets Plt Clumps, EDTA Large Platelets Giant Platelets Platelet Satelliting Plt Morphology Comment RBC Morphology Dimorphic RBCs Polychromasia Hypochromasia Poikilocytosis Anisocytosis Microcytosis Macrocytosis Spherocytes Pappenheimer Bodies Sickle Cells Target Cells Tear Drop Cells Ovalocytes Helmet Cells Garza-[place] Bodies [place] Rings Claudio Cells Bite Cells Crenated Cell Elliptocytes Acanthocytes (Spur) Rouleaux Hemoglobin C Crystals Schistocytes Malaria parasites Dominic Bodies Hem Pathologist Commnt APTT POC ABG pH 7.413 POC ABG pCO2 30.6 L POC ABG pO2 95 POC ABG HCO3 19.5 POC ABG Total CO2 20 POC ABG O2 Sat 98 POC ABG Base Excess -5 FiO2 28 Sodium 136 L D Potassium 4.0 Chloride 98.2 Carbon Dioxide 24 Anion Gap 18 BUN 29 H Creatinine 1.9 H D Estimated GFR 36 BUN/Creatinine Ratio 15 Glucose 360 H POC Glucose 219 H Calcium 8.0 L Total Bilirubin AST ALT Alkaline Phosphatase Lactate Dehydrogenase Total Protein Albumin Albumin/Globulin Ratio 12/01/18 12/01/18 12/01/18 13:45 16:33 17:40 WBC RBC Hgb Hct MCV MCH MCHC RDW Plt Count Add Manual Diff Total Counted Seg Neuts % (Manual) Band Neutrophils % Lymphocytes % (Manual) Reactive Lymphs % (Man) Monocytes % (Manual) Eosinophils % (Manual) Basophils % (Manual) Metamyelocytes % Myelocytes % Promyelocytes % Blast Cells % Nucleated RBC % Seg Neutrophils # Man Band Neutrophils # Lymphocytes # (Manual) Abs React Lymphs (Man) Monocytes # (Manual) Eosinophils # (Manual) Basophils # (Manual) Metamyelocytes # Myelocytes # Promyelocytes # Blast Cells # WBC Morphology Hypersegmented Neuts Hyposegmented Neuts Hypogranular Neuts Smudge Cells Toxic Granulation Toxic Vacuolation Dohle Bodies Pelger-Huet Anomaly Rosalva Rods Platelet Estimate Clumped Platelets Plt Clumps, EDTA Large Platelets Giant Platelets Platelet Satelliting Plt Morphology Comment RBC Morphology Dimorphic RBCs Polychromasia Hypochromasia Poikilocytosis Anisocytosis Microcytosis Macrocytosis Spherocytes Pappenheimer Bodies Sickle Cells Target Cells Tear Drop Cells Ovalocytes Helmet Cells Garza-[place] Bodies [place] Rings [place] Cells Bite Cells Crenated Cell Elliptocytes Acanthocytes (Spur) Rouleaux Hemoglobin C Crystals Schistocytes Malaria parasites Dominic Bodies Hem Pathologist Commnt APTT 68.9 H* POC ABG pH POC ABG pCO2 POC ABG pO2 POC ABG HCO3 POC ABG Total CO2 POC ABG O2 Sat POC ABG Base Excess FiO2 Sodium Potassium Chloride Carbon Dioxide Anion Gap BUN Creatinine Estimated GFR BUN/Creatinine Ratio Glucose POC Glucose 166 H Calcium Total Bilirubin AST ALT Alkaline Phosphatase Lactate Dehydrogenase 976 H Total Protein Albumin Albumin/Globulin Ratio 12/01/18 12/02/18 12/02/18 20:04 04:45 04:45 WBC 23.8 H RBC 6.28 H Hgb 17.5 H Hct 53.9 H MCV 86 MCH 28 MCHC 32 RDW 19.3 H Plt Count 166 Add Manual Diff Complete Total Counted 100 Seg Neuts % (Manual) 83.0 H Band Neutrophils % 0 Lymphocytes % (Manual) 12.0 L Reactive Lymphs % (Man) 0 Monocytes % (Manual) 5.0 Eosinophils % (Manual) 0 Basophils % (Manual) 0 Metamyelocytes % 0 Myelocytes % 0 Promyelocytes % 0 Blast Cells % 0 Nucleated RBC % Not Reportable Seg Neutrophils # Man 19.8 H Band Neutrophils # 0.0 Lymphocytes # (Manual) 2.9 Abs React Lymphs (Man) 0.0 Monocytes # (Manual) 1.2 H Eosinophils # (Manual) 0.0 Basophils # (Manual) 0.0 Metamyelocytes # 0.0 Myelocytes # 0.0 Promyelocytes # 0.0 Blast Cells # 0.0 WBC Morphology Not Reportable Hypersegmented Neuts Not Reportable Hyposegmented Neuts Not Reportable Hypogranular Neuts Not Reportable Smudge Cells Not Reportable Toxic Granulation Not Reportable Toxic Vacuolation Not Reportable Dohle Bodies Not Reportable Pelger-Huet Anomaly Not Reportable Rosalva Rods Not Reportable Platelet Estimate Consistent w auto Clumped Platelets Not Reportable Plt Clumps, EDTA Not Reportable Large Platelets Not Reportable Giant Platelets Not Reportable Platelet Satelliting Not Reportable Plt Morphology Comment Not Reportable RBC Morphology Not Reportable Dimorphic RBCs Not Reportable Polychromasia Not Reportable Hypochromasia Not Reportable Poikilocytosis Not Reportable Anisocytosis Few Microcytosis Not Reportable Macrocytosis Few Spherocytes Not Reportable Pappenheimer Bodies Not Reportable Sickle Cells Not Reportable Target Cells Not Reportable Tear Drop Cells Not Reportable Ovalocytes Not Reportable Helmet Cells Not Reportable Garza-[place] Bodies Not Reportable [place] Rings Not Reportable [place] Cells Not Reportable Bite Cells Not Reportable Crenated Cell Not Reportable Elliptocytes Not Reportable Acanthocytes (Spur) Not Reportable Rouleaux Not Reportable Hemoglobin C Crystals Not Reportable Schistocytes Not Reportable Malaria parasites Not Reportable Dominic Bodies Not Reportable Hem Pathologist Commnt No APTT POC ABG pH POC ABG pCO2 POC ABG pO2 POC ABG HCO3 POC ABG Total CO2 POC ABG O2 Sat POC ABG Base Excess FiO2 Sodium 135 L Potassium 4.0 Chloride 96.8 L Carbon Dioxide 24 Anion Gap 18 BUN 33 H Creatinine 2.0 H Estimated GFR 34 BUN/Creatinine Ratio 17 Glucose 302 H POC Glucose 215 H Calcium 8.0 L Total Bilirubin 2.00 H AST 156 H ALT 183 H Alkaline Phosphatase 225 H Lactate Dehydrogenase Total Protein 5.9 L D Albumin 2.6 L Albumin/Globulin Ratio 0.8 12/02/18 12/02/18 12/02/18 05:45 07:00 07:30 WBC RBC Hgb Hct MCV MCH MCHC RDW Plt Count Add Manual Diff Total Counted Seg Neuts % (Manual) Band Neutrophils % Lymphocytes % (Manual) Reactive Lymphs % (Man) Monocytes % (Manual) Eosinophils % (Manual) Basophils % (Manual) Metamyelocytes % Myelocytes % Promyelocytes % Blast Cells % Nucleated RBC % Seg Neutrophils # Man Band Neutrophils # Lymphocytes # (Manual) Abs React Lymphs (Man) Monocytes # (Manual) Eosinophils # (Manual) Basophils # (Manual) Metamyelocytes # Myelocytes # Promyelocytes # Blast Cells # WBC Morphology Hypersegmented Neuts Hyposegmented Neuts Hypogranular Neuts Smudge Cells Toxic Granulation Toxic Vacuolation Dohle Bodies Pelger-Huet Anomaly Rosalva Rods Platelet Estimate Clumped Platelets Plt Clumps, EDTA Large Platelets Giant Platelets Platelet Satelliting Plt Morphology Comment RBC Morphology Dimorphic RBCs Polychromasia Hypochromasia Poikilocytosis Anisocytosis Microcytosis Macrocytosis Spherocytes Pappenheimer Bodies Sickle Cells Target Cells Tear Drop Cells Ovalocytes Helmet Cells Garza-[place] Bodies [place] Rings [place] Cells Bite Cells Crenated Cell Elliptocytes Acanthocytes (Spur) Rouleaux Hemoglobin C Crystals Schistocytes Malaria parasites Dominic Bodies Hem Pathologist Commnt APTT 51.5 H POC ABG pH POC ABG pCO2 POC ABG pO2 POC ABG HCO3 POC ABG Total CO2 POC ABG O2 Sat POC ABG Base Excess FiO2 Sodium Potassium Chloride Carbon Dioxide Anion Gap BUN Creatinine Estimated GFR BUN/Creatinine Ratio Glucose POC Glucose 336 H 143 H Calcium Total Bilirubin AST ALT Alkaline Phosphatase Lactate Dehydrogenase Total Protein Albumin Albumin/Globulin Ratio Medications & Allergies - Medications Allergies/Adverse Reactions: Allergies lisinopril Adverse Reaction (Severe, Verified 12/17/13 19:00) SORE THROAT;PERSISTENT COUGH Home Medications: Home Medications Medication Instructions Recorded Confirmed Last Taken Type Aspirin [Aspirin BABY CHEW TAB] 81 mg PO QDAY 11/28/18 11/29/18 11/26/18 History Fluticasone [Flonase] 1 spray NS BID 11/28/18 11/28/18 Unknown History Furosemide [Lasix TAB] 40 mg PO BID 11/28/18 11/28/18 Unknown History Ibuprofen [Motrin] 600 mg PO Q6H PRN 11/28/18 11/28/18 Unknown History Montelukast [Singulair] 10 mg PO QPM 11/28/18 11/28/18 Unknown History Mycophenolate [Cellcept] 500 mg PO BID 11/28/18 11/28/18 Unknown History Mycophenolate [Cellcept] 500 mg PO BID PRN MDD 2 TABS 11/28/18 11/28/18 Unknown History Pantoprazole [Protonix] 40 mg PO QDAY 11/28/18 11/28/18 Unknown History Sacubitril/Valsartan [Entresto 1 each PO BID 11/28/18 11/28/18 Unknown History 49-51 mg] predniSONE [Deltasone] 50 mg PO QDAY 11/28/18 11/28/18 Unknown History raNITIdine HCl [Zantac] 150 mg PO BID 11/28/18 11/28/18 Unknown History Amitriptyline [Elavil] 25 mg PO HS 11/29/18 11/29/18 11/26/18 History Aspirin [Adult Aspirin] 81 mg PO ONCE 11/29/18 11/29/18 11/26/18 History Entresto 49-51 mg 49 mg PO BID 11/29/18 11/29/18 11/26/18 History HYDROcodone/APAP 5-325 5 mg PO Q6HR PRN 11/29/18 11/29/18 Unknown History Active Medications: Generic Name Dose Route Start Last Admin Trade Name Freq PRN Reason Stop Dose Admin Acetaminophen 650 mg 11/28/18 03:02 Tylenol PO Q4H PRN Pain MILD(1-3)/Fever >100.5/TURPIN Alprazolam 0.25 mg 11/30/18 01:09 11/30/18 01:21 Xanax PO 0.25 mg Q8H PRN Administration Anxiety Amitriptyline HCl 25 mg 11/29/18 22:00 12/01/18 21:22 Elavil PO 25 mg HS VIOLA Administration Aspirin 81 mg 11/29/18 10:00 12/01/18 09:17 Baby Aspirin PO 81 mg QDAY VIOLA Administration Dextrose 0 ml 11/28/18 02:19 D50w (25gm) Syringe IV PRN PRN Hypoglycemia Fluticasone Propionate 50 mcg 11/29/18 10:00 12/01/18 21:31 Flonase NS 50 mcg BID VIOLA Administration Hydralazine HCl 10 mg 11/28/18 03:41 Apresoline IV Q6HR PRN Blood Pressure Hydrophilic Ointment 1 applic 11/30/18 11:55 Vaseline Lip Therapy TP DIRECT PRN DRY LIPS Amiodarone HCl 900 mg/ 500 mls @ 33.333 mls/hr 11/28/18 15:00 12/01/18 16:00 Dextrose IV 1 mg/min DIRECT VIOLA 33.333 mls/hr Administration Protocol 1 MG/MIN Argatroban 250 mg/ Sodium 250 mls @ 3.682 mls/hr 11/29/18 13:00 12/01/18 02:17 Chloride IV 0.5 mcg/kg/min TITR VIOLA 3.682 mls/hr Administration Protocol 0.5 MCG/KG/MIN Insulin Human Isoph/Insulin Regular 10 unit 11/29/18 11:00 12/01/18 17:17 Humulin 70/30 SUB-Q 10 unit BIDDIAB VIOLA Administration Insulin Human Lispro 0 unit 11/30/18 09:00 12/02/18 07:42 Humalog SUB-Q Not Given ACHS [facility] Protocol Metoprolol Tartrate 25 mg 11/30/18 14:00 12/02/18 06:17 Lopressor PO Not Given Q8HR VIOLA Montelukast Sodium 10 mg 11/29/18 18:00 12/01/18 17:17 Singulair PO 10 mg QPM VIOLA Administration Morphine Sulfate 2 mg 11/28/18 03:02 12/02/18 03:58 Morphine IV 2 mg Q4H PRN Administration Pain, Moderate (4-6) Nitroglycerin 0.75 inch 11/29/18 14:00 12/02/18 06:17 Nitro-Bid 2% TP Not Given QIDNTG [facility] Protocol Ondansetron HCl 4 mg 11/28/18 03:02 Zofran IV Q8H PRN Nausea And Vomiting Pantoprazole Sodium 40 mg 11/29/18 10:00 12/01/18 09:18 Protonix PO 40 mg QDAY VIOLA Administration Pentoxifylline 400 mg 11/29/18 13:00 12/01/18 21:22 Trental PO 400 mg Q12HR VIOLA Administration Prednisone 50 mg 11/29/18 10:00 12/01/18 09:17 Deltasone PO 50 mg QDAY [facility] Administration Sodium Chloride 10 ml 11/28/18 10:00 12/01/18 21:24 Sodium Chloride Flush Syringe 10 Ml IV 10 ml BID VIOLA Administration Sodium Chloride 10 ml 11/28/18 03:02 Sodium Chloride Flush Syringe 10 Ml IV PRN PRN LINE FLUSH
[2018-12-02] MEDS: CORDARONE 900 MG in D5W 482 ML IV SCH (07:56)
[2018-12-02] MEDS: BABY ASPIRIN PO SCH (09:04)
[2018-12-02] MEDS: PROTONIX PO SCH (09:04)
[2018-12-02] MEDS: TRENTAL PO SCH ×2 (09:04→21:31)
--- NOTE | 2018-12-02 09:07 | Progress Note ---
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 Decreased left ventricular systolic function 20-25%. Plan: Continue IV amiodarone and beta blockers for suppression of arrhythmias. We will plan for RODNEY on Thursday for rule out cardioembolic source. Subjective Date of service: 12/02/18 Principal diagnosis: thrombus Interval history: Patient has no complaints. Stable sinus rhythm on telemetry. IV amiodarone continues. For planned RODNEY tomorrow morning. Objective Vital Signs Temp Pulse Pulse Pulse Resp BP Pulse Ox 12/02/18 08:21 70 9 L 84/63 98 12/02/18 08:11 70 25 H 84/63 100 12/02/18 08:01 70 13 84/63 99 12/02/18 08:00 70 16 98 12/02/18 07:51 70 15 93/63 100 12/02/18 07:41 70 19 105/63 98 12/02/18 07:31 70 14 97/54 96 12/02/18 07:21 70 15 112/60 100 12/02/18 07:11 70 18 108/57 98 12/02/18 07:04 97 12/02/18 07:01 70 25 H 108/57 79 L 12/02/18 06:51 70 17 99/52 97 12/02/18 06:41 70 42 H 83/68 98 12/02/18 06:31 70 20 83/68 100 12/02/18 06:21 70 22 94/59 89 12/02/18 06:11 70 21 97/51 85 12/02/18 06:01 70 14 97/51 91 12/02/18 05:51 70 31 H 97/51 99 12/02/18 05:41 70 25 H 97/51 86 12/02/18 05:31 70 21 97/51 100 12/02/18 05:21 70 25 H 79/53 99 12/02/18 05:11 70 27 H 79/53 85 12/02/18 05:01 70 21 99/62 85 12/02/18 04:51 70 13 99/62 88 12/02/18 04:41 70 16 99/62 100 12/02/18 04:31 70 20 99/62 99 12/02/18 04:21 70 18 102/61 100 12/02/18 04:11 70 21 118/44 100 12/02/18 04:01 70 20 118/44 93 12/02/18 04:00 70 87 18 95 12/02/18 03:51 70 13 118/44 100 12/02/18 03:41 70 17 118/44 98 12/02/18 03:31 70 12 118/44 100 12/02/18 03:21 70 22 118/44 88 12/02/18 03:11 70 19 113/76 85 12/02/18 03:01 70 16 101/72 75 L 12/02/18 02:51 70 21 113/76 82 L 12/02/18 02:41 70 28 H 113/76 80 L 12/02/18 02:31 70 11 L 113/76 81 L 12/02/18 02:21 70 24 101/61 100 12/02/18 02:11 70 22 101/60 100 12/02/18 02:01 70 21 101/60 100 12/02/18 01:51 70 13 114/61 100 12/02/18 01:41 70 18 100/62 100 12/02/18 01:31 70 25 H 100/62 100 12/02/18 01:21 70 14 100/60 100 12/02/18 01:11 70 16 100/60 92 12/02/18 01:01 70 14 106/61 92 12/02/18 00:51 70 15 108/67 89 12/02/18 00:46 70 24 98 12/02/18 00:41 70 21 100/60 78 L 12/02/18 00:31 70 19 104/58 81 L 12/02/18 00:21 70 27 H 104/58 81 L 12/02/18 00:11 70 20 101/62 99 12/02/18 00:01 70 12 101/62 100 12/02/18 00:00 82 87 18 99 12/01/18 23:51 70 24 92/68 98 12/01/18 23:41 70 17 92/68 100 12/01/18 23:31 70 16 86/58 97 12/01/18 23:21 70 18 86/58 94 12/01/18 23:11 70 21 118/61 12/01/18 23:03 70 18 118/61 12/01/18 23:01 70 11 L 118/61 12/01/18 22:51 70 14 118/61 100 12/01/18 22:41 70 16 118/61 100 12/01/18 22:31 70 26 H 118/61 100 12/01/18 22:21 70 26 H 105/68 100 12/01/18 22:11 70 14 105/68 100 12/01/18 22:01 70 22 105/68 74 L 12/01/18 22:00 87 12/01/18 21:51 70 14 101/69 86 12/01/18 21:41 70 10 L 103/72 100 12/01/18 21:31 70 8 L 103/72 100 12/01/18 21:22 70 107/66 12/01/18 21:21 70 16 107/66 100 12/01/18 21:11 70 26 H 101/74 96 12/01/18 21:10 98 12/01/18 21:01 70 16 104/74 77 L 12/01/18 20:51 70 19 104/74 71 L 12/01/18 20:41 70 15 100/73 88 12/01/18 20:31 70 19 100/73 62 L 12/01/18 20:21 70 17 132/68 79 L 12/01/18 20:11 70 23 132/68 76 L 12/01/18 20:01 70 17 132/68 63 L 12/01/18 20:00 87 87 18 99 12/01/18 19:51 70 15 114/67 63 L 12/01/18 19:41 70 32 H 118/55 92 12/01/18 19:31 70 19 118/55 91 12/01/18 19:21 70 13 107/87 32 L 12/01/18 19:11 70 13 118/55 49 L 12/01/18 19:01 70 28 H 118/55 98 12/01/18 18:51 70 22 95/74 67 L 12/01/18 18:41 70 42 H 95/74 87 12/01/18 18:31 70 36 H 95/74 70 L 12/01/18 18:21 70 29 H 142/119 83 L 12/01/18 18:11 70 24 176/136 58 L 12/01/18 18:01 70 27 H 176/136 92 12/01/18 17:51 70 47 H 176/136 74 L 12/01/18 17:41 70 17 80/42 70 L 12/01/18 17:34 70 142/119 12/01/18 17:31 70 12 116/61 94 12/01/18 17:21 70 12 116/61 88 12/01/18 17:11 70 21 109/91 100 12/01/18 17:01 70 28 H 109/91 82 L 12/01/18 16:51 70 29 H 109/91 97 12/01/18 16:41 70 25 H 109/91 73 L 12/01/18 16:31 70 19 109/91 64 L 12/01/18 16:21 70 25 H 109/91 12/01/18 16:11 70 28 H 94/51 12/01/18 16:01 70 45 H 94/51 12/01/18 16:00 70 70 25 H 99 12/01/18 15:51 70 35 H 94/51 66 L 12/01/18 15:41 70 18 97/77 90 12/01/18 15:31 70 21 97/77 100 12/01/18 15:21 70 18 146/93 12/01/18 15:11 72 12 146/93 78 L 12/01/18 15:01 72 14 90/72 94 12/01/18 15:00 97.5 F L 12/01/18 14:51 70 45 H 90/72 92 12/01/18 14:41 71 22 88/70 85 12/01/18 14:31 72 15 118/93 83 L 12/01/18 14:23 72 118/93 12/01/18 14:22 71 118/93 12/01/18 14:21 71 23 103/83 95 12/01/18 14:11 73 12 103/83 77 L 12/01/18 14:01 74 15 160/122 86 12/01/18 13:51 70 36 H 99/44 12/01/18 13:41 70 10 L 99/44 12/01/18 13:30 70 25 H 98/47 91 12/01/18 13:26 71 18 96/74 12/01/18 12:00 97.5 F L 70 25 H 99 12/01/18 11:51 70 13 96/74 74 L 12/01/18 11:41 70 10 L 96/74 97 12/01/18 11:30 70 20 96/74 94 12/01/18 11:21 70 13 98/66 100 12/01/18 11:11 70 13 98/66 86 12/01/18 11:00 70 11 L 89/69 100 12/01/18 10:51 70 56 H 108/77 99 12/01/18 10:41 70 51 H 108/77 97 12/01/18 10:30 70 20 108/77 100 12/01/18 10:21 70 9 L 108/77 100 12/01/18 10:11 70 40 H 108/77 98 12/01/18 10:00 70 48 H 108/77 100 12/01/18 09:51 70 44 H 77/32 62 L 12/01/18 09:41 70 37 H 77/32 69 L 12/01/18 09:31 70 29 H 77/32 74 L 12/01/18 09:21 70 26 H 139/107 63 L 12/01/18 09:18 70 139/107 12/01/18 09:11 70 52 H 139/107 73 L - Physical Examination General: No Apparent Distress HEENT: Positive: PERRL Neck: Positive: trachea midline Cardiac: Positive: Reg Rate and Rhythm Lungs: Positive: Decreased Breath Sounds Neuro: Positive: Grossly Intact - Labs and Meds Cardiac Enzymes 12/01/18 12/02/18 Range/Units 13:45 04:45 AST 156 H (5-40) units/L Lactate Dehydrogenase 976 H (91-180) units/L Coagulation 12/01/18 12/02/18 Range/Units 17:40 05:45 APTT 68.9 H* 51.5 H (24.2-36.6) Sec. CBC 12/02/18 Range/Units 04:45 WBC 23.8 H (4.5-11.0) K/mm3 RBC 6.28 H (3.65-5.03) M/mm3 Hgb 17.5 H (10.1-14.3) gm/dl Hct 53.9 H (30.3-42.9) % Plt Count 166 (140-440) K/mm3 Comprehensive Metabolic Panel 12/01/18 12/02/18 Range/Units 13:45 04:45 Sodium 136 L D 135 L (137-145) mmol/L Potassium 4.0 4.0 (3.6-5.0) mmol/L Chloride 98.2 96.8 L (98-107) mmol/L Carbon Dioxide 24 24 (22-30) mmol/L BUN 29 H 33 H (7-17) mg/dL Creatinine 1.9 H D 2.0 H (0.7-1.2) mg/dL Glucose 360 H 302 H (65-100) mg/dL Calcium 8.0 L 8.0 L (8.4-10.2) mg/dL AST 156 H (5-40) units/L ALT 183 H (7-56) units/L Alkaline Phosphatase 225 H (35-129) units/L Total Protein 5.9 L D (6.3-8.2) g/dL Albumin 2.6 L (3.9-5) g/dL
[2018-12-02] MEDS: ENTRESTO 49-51 MG PO SCH ×2 (09:08→21:31)
[2018-12-02] MEDS: DELTASONE PO SCH (09:08)
[2018-12-02] MEDS: SODIUM CHLORIDE FLUSH SYRINGE 10 ML IV SCH ×2 (09:09→21:36)
[2018-12-02] MEDS: FLONASE NS SCH ×2 (09:21→21:30)
--- NOTE | 2018-12-02 10:44 | Vascular Lab Report ---
VL AORTA/IVC/ILIAC DUPLEX DOPPLER LIMITED HISTORY: Embolic disease COMPARISON: No relevant comparison at this facility TECHNIQUE: Multiple real-time ultrasonographic grayscale, color and pulse color images were obtained of the abdominal aorta, common iliac arteries, mesenteric arteries as well as the IVC. FINDINGS: Abdominal aorta: The abdominal aorta is normal caliber ranging from 1.8 cm proximally to 1.2 cm dista lly. No significant atherosclerotic disease. No aneurysm. Velocities in the proximal mid and distal a iggy measure 93 cm/s, 69 cm/s and 55 cm/s respectively. Celiac artery: Widely patent with peak systolic velocity measuring 93 cm/s. Superior mesenteric artery: Widely patent with peak systolic velocity measuring 42 cm/s. Inferior mesenteric artery: Not visualized/measured. Right common iliac artery: Widely patent measuring 0.9 cm in diameter. Peak systolic velocities measu re 51 cm/s proximally and 111 cm/s distally. Left common iliac artery: Widely patent measuring 0.9 cm in diameter. Peak systolic velocities measur e 50 cm/s proximally and 53 cm/s distally. IVC: Patent with no significant abnormality. Additional findings: None. IMPRESSION: No significant abnormality is identified in the aorta, celiac axis, SMA and bilateral common iliac ar teries. Please note the inferior mesenteric artery was not visualized. Signer Name: Jaswinder Prince Jr, MD Signed: 12/02/2018 10:39 AM Workstation Name: [id number]
--- NOTE | 2018-12-02 11:14 | Progress Note ---
Assessment and Plan Assessment and plan: Hyperosmolar hyperglycemic state (HHS) in a newly diagnosed Diabetes-new onset -Patient was admitted to the ICU on insulin drip, now off Insulin drip -Continue serial BMP level monitoring -Cont. Novolin 70/30 Diabetes mellitus type 2-new onset Acute respiratory failure with hypoxia -Continue oxygen supplementation as needed Sepsis -CT abd/pelvis showed generalized bronchiectasis -Blood cultures no growth Vtach s/p shocked 8 tiemes by AICD, as per interrogation, notes in paper chart Cont. Amiodarone cardiology following, b-ernesto added RODNEY planned for Thursday Occluded left anterior tibial and dorsalis pedis artery by arterial doppler Vasc Surgery following, Dr. Hernandez Cont. 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 O2 and BiPAP as clinically indicated. CATRACHO Continue CPAP during sleep and when necessary. Interstitial lung disease. Continue per pulmonary. Elevated troponin -Probably secondary to demand ischemia due to acute process -We'll continue serial troponin and EKG monitoring EDGARDO -Probably vasomotor nephropathy due to dehydration -On IV fluid, will monitor creatinine level -Nephrology following Abnormal LFT -Probably due to acute process -CT abd/pelvis negative for liver pathology -We'll monitor levels Hypertension -Stable -On when necessary hydralazine Cardiomyopathy with EF of 20-25% -Status post AICD placement -No acute exacerbation GERD -On famotidine DVT prophylaxis with heparin Partient has systemic sclerosis, sees a Certified Travel Counselor Was on Cellcept, but I did not resume because it may cause thrombosis Full code status The high probability of a clinically significant, sudden or life threatening deterioration of the [respiratory, cardiac and rheumatologic] system(s) required my full and direct attention, intervention and personal management. The aggregate critical care time was [31] minutes. This time is in addition to time spent performing reported procedures but includes the following: [x] Data Review and interpretation [x] Patient assessment and monitoring of vital signs [x] Documentation [x] Medication orders and management History Interval history: No new issues overnight Hospitalist Physical - Constitutional Vitals: Temp Pulse Resp BP Pulse Ox 97.5 F L 71 14 47/32 78 L 12/01/18 15:00 12/02/18 09:41 12/02/18 09:11 12/02/18 09:41 12/02/18 09:41 General appearance: Present: no acute distress - EENT Eyes: Present: PERRL, EOM intact ENT: hearing intact, clear oral mucosa, dentition normal - Neck Neck: Present: supple, normal ROM - Respiratory Respiratory effort: normal Respiratory: bilateral: CTA - Cardiovascular Rhythm: regular Heart Sounds: Present: S1 & S2. Absent: gallop, rub - Extremities Extremities: no ischemia, No edema, Full ROM - Abdominal General gastrointestinal: soft, non-tender, non-distended, normal bowel sounds - Integumentary Integumentary: Present: clear, warm, dry - Neurologic Neurologic: CNII-XII intact, moves all extremities Results - Labs CBC & Chem 7: 12/02/18 04:45 12/02/18 04:45 Labs: Laboratory Last Values WBC 23.8 K/mm3 (4.5-11.0) H 12/02/18 04:45 RBC 6.28 M/mm3 (3.65-5.03) H 12/02/18 04:45 Hgb 17.5 gm/dl (10.1-14.3) H 12/02/18 04:45 Hct 53.9 % (30.3-42.9) H 12/02/18 04:45 MCV 86 fl (79-97) 12/02/18 04:45 MCH 28 pg (28-32) 12/02/18 04:45 MCHC 32 % (30-34) 12/02/18 04:45 RDW 19.3 % (13.2-15.2) H 12/02/18 04:45 Plt Count 166 K/mm3 (140-440) 12/02/18 04:45 Lymph % (Auto) 6.3 % (13.4-35.0) L 11/28/18 01:01 Nuckolls % (Auto) 6.1 % (0.0-7.3) 11/28/18 01:01 Eos % (Auto) 0.0 % (0.0-4.3) 11/28/18 01:01 Baso % (Auto) 0.4 % (0.0-1.8) 11/28/18 01:01 Lymph # 0.9 K/mm3 (1.2-5.4) L 11/28/18 01:01 Nuckolls # 0.9 K/mm3 (0.0-0.8) H 11/28/18 01:01 Eos # 0.0 K/mm3 (0.0-0.4) 11/28/18 01:01 Baso # 0.1 K/mm3 (0.0-0.1) 11/28/18 01:01 Add Manual Diff Complete 12/02/18 04:45 Total Counted 100 12/02/18 04:45 Seg Neutrophils % 87.2 % (40.0-70.0) H 11/28/18 01:01 Seg Neuts % (Manual) 83.0 % (40.0-70.0) H 12/02/18 04:45 0 % 12/02/18 04:45 12.0 % (13.4-35.0) L 12/02/18 04:45 Reactive Lymphs % (Man) 0 % 12/02/18 04:45 5.0 % (0.0-7.3) 12/02/18 04:45 0 % (0.0-4.3) 12/02/18 04:45 0 % (0.0-1.8) 12/02/18 04:45 0 % 12/02/18 04:45 0 % 12/02/18 04:45 0 % 12/02/18 04:45 0 % 12/02/18 04:45 Nucleated RBC % Not Reportable 12/02/18 04:45 Seg Neutrophils # 13.2 K/mm3 (1.8-7.7) H 11/28/18 01:01 Seg Neutrophils # Man 19.8 K/mm3 (1.8-7.7) H 12/02/18 04:45 Band Neutrophils # 0.0 K/mm3 12/02/18 04:45 2.9 K/mm3 (1.2-5.4) 12/02/18 04:45 Abs React Lymphs (Man) 0.0 K/mm3 12/02/18 04:45 1.2 K/mm3 (0.0-0.8) H 12/02/18 04:45 0.0 K/mm3 (0.0-0.4) 12/02/18 04:45 0.0 K/mm3 (0.0-0.1) 12/02/18 04:45 0.0 K/mm3 12/02/18 04:45 0.0 K/mm3 12/02/18 04:45 0.0 K/mm3 12/02/18 04:45 Blast Cells # 0.0 K/mm3 12/02/18 04:45 WBC Morphology Not Reportable 12/02/18 04:45 Hypersegmented Neuts Not Reportable 12/02/18 04:45 Hyposegmented Neuts Not Reportable 12/02/18 04:45 Hypogranular Neuts Not Reportable 12/02/18 04:45 Not Reportable 12/02/18 04:45 Not Reportable 12/02/18 04:45 Not Reportable 12/02/18 04:45 Not Reportable 12/02/18 04:45 Not Reportable 12/02/18 04:45 Not Reportable 12/02/18 04:45 Consistent w auto 12/02/18 04:45 Not Reportable 12/02/18 04:45 Plt Clumps, EDTA Not Reportable 12/02/18 04:45 Not Reportable 12/02/18 04:45 Not Reportable 12/02/18 04:45 Not Reportable 12/02/18 04:45 Plt Morphology Comment Not Reportable 12/02/18 04:45 RBC Morphology Not Reportable 12/02/18 04:45 Dimorphic RBCs Not Reportable 12/02/18 04:45 Not Reportable 12/02/18 04:45 Not Reportable 12/02/18 04:45 Not Reportable 12/02/18 04:45 Few 12/02/18 04:45 Not Reportable 12/02/18 04:45 Few 12/02/18 04:45 Not Reportable 12/02/18 04:45 Not Reportable 12/02/18 04:45 Not Reportable 12/02/18 04:45 Not Reportable 12/02/18 04:45 Not Reportable 12/02/18 04:45 Not Reportable 12/02/18 04:45 Not Reportable 12/02/18 04:45 Not Reportable 12/02/18 04:45 Not Reportable 12/02/18 04:45 Not Reportable 12/02/18 04:45 Not Reportable 12/02/18 04:45 Not Reportable 12/02/18 04:45 Not Reportable 12/02/18 04:45 Acanthocytes (Spur) Not Reportable 12/02/18 04:45 Rouleaux Not Reportable 12/02/18 04:45 Not Reportable 12/02/18 04:45 Not Reportable 12/02/18 04:45 Not Reportable 12/02/18 04:45 Not Reportable 12/02/18 04:45 Hem Pathologist Commnt No 12/02/18 04:45 PT 15.6 Sec. (12.2-14.9) H 11/28/18 01:01 INR 1.27 (0.87-1.13) H 11/28/18 01:01 APTT 51.5 Sec. (24.2-36.6) H 12/02/18 05:45 POC ABG pH 7.413 (7.35-7.45) 12/01/18 10:39 ABG pH 7.414 pH Units (7.350-7.450) 11/28/18 01:01 POC ABG pCO2 30.6 (35-45) L 12/01/18 10:39 ABG pCO2 48.8 mm Hg 11/28/18 01:01 POC ABG pO2 95 (80-105) 12/01/18 10:39 ABG pO2 65.7 mm Hg (80.0-90.0) L 11/28/18 01:01 POC ABG HCO3 19.5 (22-26 mml/L) 12/01/18 10:39 ABG HCO3 30.5 mmol/L (20.0-26.0) H 11/28/18 01:01 POC ABG Total CO2 20 (23-27mmol/L) 12/01/18 10:39 POC ABG O2 Sat 98 12/01/18 10:39 ABG O2 Saturation 91.3 % (95.0-99.0) L 11/28/18 01:01 ABG O2 Content 22.2 (0.0-44) 11/28/18 01:01 POC ABG Base Excess -5 ((-2) - (+3)mmol/L) 12/01/18 10:39 ABG Base Excess 4.6 mmol/L (-2.0-3.0) H 11/28/18 01:01 ABG Hemoglobin 18.0 gm/dl (12.0-16.0) H 11/28/18 01:01 ABG Carboxyhemoglobin 3.1 % (0.0-5.0) 11/28/18 01:01 ABG Methemoglobin 0.5 % (0.0-1.5) 11/28/18 01:01 VBG pH 7.414 (7.320-7.420) 11/28/18 01:01 88.0 % (95.0-99.0) L 11/28/18 01:01 28 % 12/01/18 10:39 Sodium 135 mmol/L (137-145) L 12/02/18 04:45 Potassium 4.0 mmol/L (3.6-5.0) 12/02/18 04:45 Chloride 96.8 mmol/L (98-107) L 12/02/18 04:45 Carbon Dioxide 24 mmol/L (22-30) 12/02/18 04:45 18 mmol/L 12/02/18 04:45 BUN 33 mg/dL (7-17) H 12/02/18 04:45 2.0 mg/dL (0.7-1.2) H 12/02/18 04:45 Estimated GFR 34 ml/min 12/02/18 04:45 17 % 12/02/18 04:45 Glucose 302 mg/dL (65-100) H 12/02/18 04:45 POC Glucose 249 (70-105) H 12/02/18 11:07 12.5 % (4-6) H 11/28/18 01:01 Lactic Acid 5.00 mmol/L (0.7-2.0) H* 11/28/18 15:14 Calcium 8.0 mg/dL (8.4-10.2) L 12/02/18 04:45 Phosphorus 3.30 mg/dL (2.5-4.5) 11/30/18 07:18 Magnesium 3.20 mg/dL (1.7-2.3) H 11/30/18 07:18 2.00 mg/dL (0.1-1.2) H 12/02/18 04:45 1.3 mg/dL (0-0.2) H 11/28/18 01:01 1.1 mg/dL 11/28/18 01:01 AST 156 units/L (5-40) H 12/02/18 04:45 ALT 183 units/L (7-56) H 12/02/18 04:45 225 units/L (35-129) H 12/02/18 04:45 30.0 umol/L (25-60) 11/28/18 01:01 976 units/L (91-180) H 12/01/18 13:45 228 units/L (30-135) H 11/28/18 01:01 0.030 ng/mL (0.00-0.029) H D 11/28/18 07:50 5.9 g/dL (6.3-8.2) L D 12/02/18 04:45 2.6 g/dL (3.9-5) L 12/02/18 04:45 0.8 % 12/02/18 04:45 Triglycerides 356 mg/dL (2-149) H 11/28/18 01:01 Cholesterol 200 mg/dL (50-199) H 11/28/18 01:01 125 mg/dL (50-130) 11/28/18 01:01 39 mg/dL (40-59) L 11/28/18 01:01 5.12 % 11/28/18 01:01 TSH 0.288 mlU/mL (0.270-4.200) 11/28/18 01:01 HCG, Quant < 2 mIU/mL (0-4) 11/28/18 01:01 Straw (Yellow) 11/28/18 00:37 Clear (Clear) 11/28/18 00:37 7.0 (5.0-7.0) 11/28/18 00:37 Ur Specific [place] 1.023 (1.003-1.030) 11/28/18 00:37 30 mg/dl mg/dL (Negative) 11/28/18 00:37 >=500 mg/dL (Negative) 11/28/18 00:37 Tr mg/dL (Negative) 11/28/18 00:37 Sm (Negative) 11/28/18 00:37 Neg (Negative) 11/28/18 00:37 Neg (Negative) 11/28/18 00:37 < 2.0 mg/dL (<2.0) 11/28/18 00:37 Ur Leukocyte Esterase Neg (Negative) 11/28/18 00:37 < 1.0 /HPF (0.0-6.0) 11/28/18 00:37 1.0 /HPF (0.0-6.0) 11/28/18 00:37 None seen (None Seen) 11/29/18 13:40 117.4 mg/dL (0.1-20.0) H 11/29/18 13:40 53 mmol/L 11/29/18 13:40 120 mg/dL (5-11.8) H 11/29/18 13:40 Urine HCG, Qual Negative (Negative) 11/28/18 Unknown Salicylates < 0.3 mg/dL (2.8-20.0) L 11/28/18 01:01 Presumptive negative 11/28/18 00:37 Presumptive negative 11/28/18 00:37 Acetaminophen < 5.0 ug/mL (10.0-30.0) L 11/28/18 01:01 Ur Barbiturates Screen Presumptive negative 11/28/18 00:37 Ur Phencyclidine Scrn Presumptive negative 11/28/18 00:37 Ur Amphetamines Screen Presumptive negative 11/28/18 00:37 U Benzodiazepines Scrn Presumptive negative 11/28/18 00:37 Presumptive negative 11/28/18 00:37 U Marijuana (THC) Screen Presumptive negative 11/28/18 00:37 Disclamer 11/28/18 00:37 Plasma/Serum Alcohol < 0.01 % (0-0.07) 11/28/18 01:01 Blood Type B POSITIVE 11/28/18 01:01 Antibody Screen Negative 11/28/18 01:01 Active Medications - Current Medications Current Medications: Generic Name Dose Route Start Last Admin Trade Name Freq PRN Reason Stop Dose Admin Acetaminophen 650 mg 11/28/18 03:02 Tylenol PO Q4H PRN Pain MILD(1-3)/Fever >100.5/TURPIN Alprazolam 0.25 mg 11/30/18 01:09 11/30/18 01:21 Xanax PO 0.25 mg Q8H PRN Administration Anxiety Amitriptyline HCl 25 mg 11/29/18 22:00 12/01/18 21:22 Elavil PO 25 mg HS VIOLA Administration Aspirin 81 mg 11/29/18 10:00 12/02/18 09:04 Baby Aspirin PO 81 mg QDAY VIOLA Administration Dextrose 0 ml 11/28/18 02:19 D50w (25gm) Syringe IV PRN PRN Hypoglycemia Fluticasone Propionate 50 mcg 11/29/18 10:00 12/02/18 09:21 Flonase NS 50 mcg BID VIOLA Administration Hydralazine HCl 10 mg 11/28/18 03:41 Apresoline IV Q6HR PRN Blood Pressure Hydrophilic Ointment 1 applic 11/30/18 11:55 Vaseline Lip Therapy TP DIRECT PRN DRY LIPS Amiodarone HCl 900 mg/ 500 mls @ 33.333 mls/hr 11/28/18 15:00 12/02/18 07:56 Dextrose IV 1 mg/min DIRECT VIOLA 33.333 mls/hr Administration Protocol 1 MG/MIN Argatroban 250 mg/ Sodium 250 mls @ 3.682 mls/hr 11/29/18 13:00 12/01/18 02:17 Chloride IV 0.5 mcg/kg/min TITR VIOLA 3.682 mls/hr Administration Protocol 0.5 MCG/KG/MIN Insulin Human Isoph/Insulin Regular 10 unit 11/29/18 11:00 12/02/18 08:52 Humulin 70/30 SUB-Q 10 unit BIDDIAB [facility] Administration Insulin Human Lispro 0 unit 11/30/18 09:00 12/02/18 07:42 Humalog SUB-Q Not Given ACHS [facility] Protocol Metoprolol Tartrate 25 mg 11/30/18 14:00 12/02/18 06:17 Lopressor PO Not Given Q8HR VIOLA Montelukast Sodium 10 mg 11/29/18 18:00 12/01/18 17:17 Singulair PO 10 mg QPM VIOLA Administration Morphine Sulfate 2 mg 11/28/18 03:02 12/02/18 03:58 Morphine IV 2 mg Q4H PRN Administration Pain, Moderate (4-6) Nitroglycerin 0.75 inch 11/29/18 14:00 12/02/18 09:08 Nitro-Bid 2% TP 0.75 inch QIDNTG [facility] Administration Protocol Ondansetron HCl 4 mg 11/28/18 03:02 Zofran IV Q8H PRN Nausea And Vomiting Pantoprazole Sodium 40 mg 11/29/18 10:00 12/02/18 09:04 Protonix PO 40 mg QDAY VIOLA Administration Pentoxifylline 400 mg 11/29/18 13:00 12/02/18 09:04 Trental PO 400 mg Q12HR VIOLA Administration Prednisone 50 mg 11/29/18 10:00 12/02/18 09:08 Deltasone PO 50 mg QDAY VIOLA Administration Sodium Chloride 10 ml 11/28/18 10:00 12/02/18 09:09 Sodium Chloride Flush Syringe 10 Ml IV 10 ml BID VIOLA Administration Sodium Chloride 10 ml 11/28/18 03:02 Sodium Chloride Flush Syringe 10 Ml IV PRN PRN LINE FLUSH Nutrition/Malnutrition Assess - Dietary Evaluation Nutrition/Malnutrition Findings: Nutrition Notes Start: 11/29/18 14:34 Freq: Status: Active Protocol: Document 11/29/18 14:35 LM (Rec: 11/29/18 14:40 LM [id number]) Nutrition Notes Need for Assessment generated from: Education Initial or Follow up Brief Note Current Diagnosis Diabetes,Hypertension Subjective/Other Information Consult for DM education. #1 Nutrition Diagnosis Food and nutrition-related knowledge deficit Etiology No prior DM diet education As Evidenced by Signs and Symptoms Pt statement of needing DM diet education, HGB A1C of 12. 5, BG 203 Nutrition Intervention Teaching Recipient Patient Learning Readiness Good Teaching Methods Discussion,Handout Education Handouts Provided Carbohydrate Counting for People with Diabetes RD phone number provided Yes Patient aware of follow up options Yes Revisit per MD consult or patient Sign Off request:
[2018-12-02] MEDS: CORDARONE PO SCH ×2 (12:30→21:31)
--- NOTE | 2018-12-02 12:46 | Progress Note ---
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 1. Spoke with renal over the phone. They are ok with fluids. Will order one liter over time. No bolus given systolic heart failure 2. Wean FiO2 as tolerated 3. RODNEY soon 4. Amio changed to oral 5. Will continue to follow CCT 31 minutes. Subjective Date of service: 12/02/18 Principal diagnosis: thrombus Interval history: Still having runs of Vtach. Scheduled for RODNEY. Also hypotensive last night but not given any fluids. Renal and Cards both following. had increase in Cr as well. Objective Vital Signs - 12hr 12/02/18 12/02/18 12/02/18 00:46 00:51 01:01 Pulse Rate 70 70 70 Pulse Rate [ From Monitor] Pulse Rate [ Left Radial] Respiratory 24 15 14 Rate Blood Pressure 108/67 106/61 O2 Sat by Pulse 98 89 92 Oximetry 12/02/18 12/02/18 12/02/18 01:11 01:21 01:31 Pulse Rate 70 70 70 Pulse Rate [ From Monitor] Pulse Rate [ Left Radial] Respiratory 16 14 25 H Rate Blood Pressure 100/60 100/60 100/62 O2 Sat by Pulse 92 100 100 Oximetry 12/02/18 12/02/18 12/02/18 01:41 01:51 02:01 Pulse Rate 70 70 70 Pulse Rate [ From Monitor] Pulse Rate [ Left Radial] Respiratory 18 13 21 Rate Blood Pressure 100/62 114/61 101/60 O2 Sat by Pulse 100 100 100 Oximetry 12/02/18 12/02/18 12/02/18 02:11 02:21 02:31 Pulse Rate 70 70 70 Pulse Rate [ From Monitor] Pulse Rate [ Left Radial] Respiratory 22 24 11 L Rate Blood Pressure 101/60 101/61 113/76 O2 Sat by Pulse 100 100 81 L Oximetry 12/02/18 12/02/18 12/02/18 02:41 02:51 03:01 Pulse Rate 70 70 70 Pulse Rate [ From Monitor] Pulse Rate [ Left Radial] Respiratory 28 H 21 16 Rate Blood Pressure 113/76 113/76 101/72 O2 Sat by Pulse 80 L 82 L 75 L Oximetry 12/02/18 12/02/18 12/02/18 03:11 03:21 03:31 Pulse Rate 70 70 70 Pulse Rate [ From Monitor] Pulse Rate [ Left Radial] Respiratory 19 22 12 Rate Blood Pressure 113/76 118/44 118/44 O2 Sat by Pulse 85 88 100 Oximetry 12/02/18 12/02/18 12/02/18 03:41 03:51 04:00 Pulse Rate 70 70 Pulse Rate [ 70 From Monitor] Pulse Rate [ 87 Left Radial] Respiratory 17 13 18 Rate Blood Pressure 118/44 118/44 O2 Sat by Pulse 98 100 95 Oximetry 12/02/18 12/02/18 12/02/18 04:01 04:11 04:21 Pulse Rate 70 70 70 Pulse Rate [ From Monitor] Pulse Rate [ Left Radial] Respiratory 20 21 18 Rate Blood Pressure 118/44 118/44 102/61 O2 Sat by Pulse 93 100 100 Oximetry 12/02/18 12/02/18 12/02/18 04:31 04:41 04:51 Pulse Rate 70 70 70 Pulse Rate [ From Monitor] Pulse Rate [ Left Radial] Respiratory 20 16 13 Rate Blood Pressure 99/62 99/62 99/62 O2 Sat by Pulse 99 100 88 Oximetry 12/02/18 12/02/18 12/02/18 05:01 05:11 05:21 Pulse Rate 70 70 70 Pulse Rate [ From Monitor] Pulse Rate [ Left Radial] Respiratory 21 27 H 25 H Rate Blood Pressure 99/62 79/53 79/53 O2 Sat by Pulse 85 85 99 Oximetry 12/02/18 12/02/18 12/02/18 05:31 05:41 05:51 Pulse Rate 70 70 70 Pulse Rate [ From Monitor] Pulse Rate [ Left Radial] Respiratory 21 25 H 31 H Rate Blood Pressure 97/51 97/51 97/51 O2 Sat by Pulse 100 86 99 Oximetry 12/02/18 12/02/18 12/02/18 06:01 06:11 06:21 Pulse Rate 70 70 70 Pulse Rate [ From Monitor] Pulse Rate [ Left Radial] Respiratory 14 21 22 Rate Blood Pressure 97/51 97/51 94/59 O2 Sat by Pulse 91 85 89 Oximetry 12/02/18 12/02/18 12/02/18 06:31 06:41 06:51 Pulse Rate 70 70 70 Pulse Rate [ From Monitor] Pulse Rate [ Left Radial] Respiratory 20 42 H 17 Rate Blood Pressure 83/68 83/68 99/52 O2 Sat by Pulse 100 98 97 Oximetry 12/02/18 12/02/18 12/02/18 07:01 07:04 07:11 Pulse Rate 70 70 Pulse Rate [ From Monitor] Pulse Rate [ Left Radial] Respiratory 25 H 18 Rate Blood Pressure 108/57 108/57 O2 Sat by Pulse 79 L 97 98 Oximetry 12/02/18 12/02/18 12/02/18 07:21 07:31 07:41 Pulse Rate 70 70 70 Pulse Rate [ From Monitor] Pulse Rate [ Left Radial] Respiratory 15 14 19 Rate Blood Pressure 112/60 97/54 105/63 O2 Sat by Pulse 100 96 98 Oximetry 12/02/18 12/02/18 12/02/18 07:51 08:00 08:01 Pulse Rate 70 70 Pulse Rate [ 70 From Monitor] Pulse Rate [ Left Radial] Respiratory 15 16 13 Rate Blood Pressure 93/63 84/63 O2 Sat by Pulse 100 98 99 Oximetry 12/02/18 12/02/18 12/02/18 08:11 08:21 08:31 Pulse Rate 70 70 70 Pulse Rate [ From Monitor] Pulse Rate [ Left Radial] Respiratory 25 H 9 L 15 Rate Blood Pressure 84/63 84/63 84/63 O2 Sat by Pulse 100 98 94 Oximetry 12/02/18 12/02/18 12/02/18 08:41 08:51 09:01 Pulse Rate 70 70 70 Pulse Rate [ From Monitor] Pulse Rate [ Left Radial] Respiratory 14 22 14 Rate Blood Pressure 91/58 96/51 77/50 O2 Sat by Pulse 78 L 100 86 Oximetry 12/02/18 12/02/18 12/02/18 09:08 09:11 09:21 Pulse Rate 70 70 70 Pulse Rate [ From Monitor] Pulse Rate [ Left Radial] Respiratory 14 Rate Blood Pressure 95/76 95/76 58/22 O2 Sat by Pulse 98 99 Oximetry 12/02/18 12/02/18 09:31 09:41 Pulse Rate 70 71 Pulse Rate [ From Monitor] Pulse Rate [ Left Radial] Respiratory Rate Blood Pressure 47/32 47/32 O2 Sat by Pulse 77 L 78 L Oximetry Constitutional: no acute distress, alert Eyes: non-icteric ENT: oropharynx moist Neck: supple Effort: normal Ascultation: Bilateral: clear, diminished breath sounds Cardiovascular: regular rate and rhythm Gastrointestinal: normoactive bowel sounds, non-tender, non-distended, other (obese) Extremities: other (discolration noted in LE and ischemic left middle finger) CBC and BMP: 12/02/18 04:45 12/02/18 04:45 ABG, PT/INR, D-dimer: ABG POC ABG pH 7.413 (7.35-7.45) 12/01/18 10:39 ABG pH 7.414 pH Units (7.350-7.450) 11/28/18 01:01 POC ABG pCO2 30.6 (35-45) L 12/01/18 10:39 ABG pCO2 48.8 mm Hg 11/28/18 01:01 POC ABG pO2 95 (80-105) 12/01/18 10:39 ABG pO2 65.7 mm Hg (80.0-90.0) L 11/28/18 01:01 POC ABG HCO3 19.5 (22-26 mml/L) 12/01/18 10:39 POC ABG Total CO2 20 (23-27mmol/L) 12/01/18 10:39 POC ABG O2 Sat 98 12/01/18 10:39 ABG O2 Saturation 91.3 % (95.0-99.0) L 11/28/18 01:01 PT/INR, D-dimer PT 15.6 Sec. (12.2-14.9) H 11/28/18 01:01 INR 1.27 (0.87-1.13) H 11/28/18 01:01 Abnormal lab findings: Abnormal Labs 11/27/18 11/28/18 11/28/18 23:40 01:01 01:01 WBC 15.1 H RBC 6.19 H Hgb 17.4 H Hct 54.6 H RDW 19.6 H Lymph % (Auto) 6.3 L Lymph # 0.9 L [place] # 0.9 H Seg Neutrophils % 87.2 H Seg Neuts % (Manual) Lymphocytes % (Manual) Nucleated RBC % Seg Neutrophils # 13.2 H Seg Neutrophils # Man Monocytes # (Manual) PT 15.6 H INR 1.27 H APTT POC ABG pCO2 ABG pO2 ABG HCO3 ABG O2 Saturation ABG Base Excess ABG Hemoglobin Oxyhemoglobin Sodium Potassium Chloride Carbon Dioxide BUN Creatinine Glucose POC Glucose > 500 H Hemoglobin A1c Lactic Acid Calcium Phosphorus Magnesium Total Bilirubin Direct Bilirubin AST ALT Alkaline Phosphatase Lactate Dehydrogenase Total Creatine Kinase Troponin T Total Protein Albumin Triglycerides Cholesterol HDL Cholesterol Urine Creatinine Urine Total Protein Salicylates Acetaminophen 11/28/18 11/28/18 11/28/18 01:01 01:01 01:01 WBC RBC Hgb Hct RDW Lymph % (Auto) Lymph # [place] # Seg Neutrophils % Seg Neuts % (Manual) Lymphocytes % (Manual) Nucleated RBC % Seg Neutrophils # Seg Neutrophils # Man Monocytes # (Manual) PT INR APTT POC ABG pCO2 ABG pO2 ABG HCO3 ABG O2 Saturation ABG Base Excess ABG Hemoglobin Oxyhemoglobin Sodium Potassium 5.9 H Chloride 92.9 L Carbon Dioxide BUN 20 H Creatinine 1.3 H Glucose 1088 H* POC Glucose Hemoglobin A1c Lactic Acid 3.50 H* Calcium Phosphorus Magnesium Total Bilirubin 2.40 H Direct Bilirubin 1.3 H AST ALT Alkaline Phosphatase 225 H Lactate Dehydrogenase Total Creatine Kinase Troponin T 0.030 H Total Protein Albumin 3.8 L Triglycerides 356 H Cholesterol 200 H HDL Cholesterol 39 L Urine Creatinine Urine Total Protein Salicylates < 0.3 L Acetaminophen 11/28/18 11/28/18 11/28/18 01:01 01:01 01:01 WBC RBC Hgb Hct RDW Lymph % (Auto) Lymph # [place] # Seg Neutrophils % Seg Neuts % (Manual) Lymphocytes % (Manual) Nucleated RBC % Seg Neutrophils # Seg Neutrophils # Man Monocytes # (Manual) PT INR APTT POC ABG pCO2 ABG pO2 65.7 L ABG HCO3 30.5 H ABG O2 Saturation 91.3 L ABG Base Excess 4.6 H ABG Hemoglobin 18.0 H Oxyhemoglobin 88.0 L Sodium Potassium Chloride Carbon Dioxide BUN Creatinine Glucose POC Glucose Hemoglobin A1c Lactic Acid Calcium Phosphorus Magnesium 3.70 H Total Bilirubin Direct Bilirubin AST ALT Alkaline Phosphatase Lactate Dehydrogenase Total Creatine Kinase 228 H Troponin T Total Protein Albumin Triglycerides Cholesterol HDL Cholesterol Urine Creatinine Urine Total Protein Salicylates Acetaminophen < 5.0 L 11/28/18 11/28/18 11/28/18 01:01 02:39 03:17 WBC RBC Hgb Hct RDW Lymph % (Auto) Lymph # [place] # Seg Neutrophils % Seg Neuts % (Manual) Lymphocytes % (Manual) Nucleated RBC % Seg Neutrophils # Seg Neutrophils # Man Monocytes # (Manual) PT INR APTT POC ABG pCO2 ABG pO2 ABG HCO3 ABG O2 Saturation ABG Base Excess ABG Hemoglobin Oxyhemoglobin Sodium Potassium Chloride Carbon Dioxide BUN Creatinine Glucose POC Glucose > 500 H Hemoglobin A1c 12.5 H Lactic Acid 3.00 H* Calcium Phosphorus Magnesium Total Bilirubin Direct Bilirubin AST ALT Alkaline Phosphatase Lactate Dehydrogenase Total Creatine Kinase Troponin T Total Protein Albumin Triglycerides Cholesterol HDL Cholesterol Urine Creatinine Urine Total Protein Salicylates Acetaminophen 11/28/18 11/28/18 11/28/18 03:17 03:17 03:35 WBC RBC Hgb Hct RDW Lymph % (Auto) Lymph # [place] # Seg Neutrophils % Seg Neuts % (Manual) Lymphocytes % (Manual) Nucleated RBC % Seg Neutrophils # Seg Neutrophils # Man Monocytes # (Manual) PT INR APTT POC ABG pCO2 ABG pO2 ABG HCO3 ABG O2 Saturation ABG Base Excess ABG Hemoglobin Oxyhemoglobin Sodium Potassium 6.1 H* Chloride 97.6 L Carbon Dioxide BUN 20 H Creatinine Glucose 927 H* POC Glucose > 500 H Hemoglobin A1c Lactic Acid Calcium Phosphorus 4.70 H Magnesium 3.70 H Total Bilirubin Direct Bilirubin AST ALT Alkaline Phosphatase Lactate Dehydrogenase Total Creatine Kinase Troponin T Total Protein Albumin Triglycerides Cholesterol HDL Cholesterol Urine Creatinine Urine Total Protein Salicylates Acetaminophen 11/28/18 11/28/18 11/28/18 04:43 05:35 06:30 WBC RBC Hgb Hct RDW Lymph % (Auto) Lymph # [place] # Seg Neutrophils % Seg Neuts % (Manual) Lymphocytes % (Manual) Nucleated RBC % Seg Neutrophils # Seg Neutrophils # Man Monocytes # (Manual) PT INR APTT POC ABG pCO2 ABG pO2 ABG HCO3 ABG O2 Saturation ABG Base Excess ABG Hemoglobin Oxyhemoglobin Sodium Potassium Chloride Carbon Dioxide BUN Creatinine Glucose POC Glucose > 500 H > 500 H > 500 H Hemoglobin A1c Lactic Acid Calcium Phosphorus Magnesium Total Bilirubin Direct Bilirubin AST ALT Alkaline Phosphatase Lactate Dehydrogenase Total Creatine Kinase Troponin T Total Protein Albumin Triglycerides Cholesterol HDL Cholesterol Urine Creatinine Urine Total Protein Salicylates Acetaminophen 11/28/18 11/28/18 11/28/18 07:50 07:50 07:50 WBC RBC Hgb Hct RDW Lymph % (Auto) Lymph # [place] # Seg Neutrophils % Seg Neuts % (Manual) Lymphocytes % (Manual) Nucleated RBC % Seg Neutrophils # Seg Neutrophils # Man Monocytes # (Manual) PT INR APTT POC ABG pCO2 ABG pO2 ABG HCO3 ABG O2 Saturation ABG Base Excess ABG Hemoglobin Oxyhemoglobin Sodium 156 H D Potassium 3.3 L D Chloride 112.8 H Carbon Dioxide BUN Creatinine Glucose 409 H POC Glucose Hemoglobin A1c Lactic Acid 6.20 H* Calcium Phosphorus Magnesium Total Bilirubin Direct Bilirubin AST ALT Alkaline Phosphatase Lactate Dehydrogenase Total Creatine Kinase Troponin T 0.030 H D Total Protein Albumin Triglycerides Cholesterol HDL Cholesterol Urine Creatinine Urine Total Protein Salicylates Acetaminophen 11/28/18 11/28/18 11/28/18 10:33 12:52 14:11 WBC RBC Hgb Hct RDW Lymph % (Auto) Lymph # [place] # Seg Neutrophils % Seg Neuts % (Manual) Lymphocytes % (Manual) Nucleated RBC % Seg Neutrophils # Seg Neutrophils # Man Monocytes # (Manual) PT INR APTT POC ABG pCO2 ABG pO2 ABG HCO3 ABG O2 Saturation ABG Base Excess ABG Hemoglobin Oxyhemoglobin Sodium Potassium Chloride Carbon Dioxide BUN Creatinine Glucose POC Glucose 411 H 204 H 119 H Hemoglobin A1c Lactic Acid Calcium Phosphorus Magnesium Total Bilirubin Direct Bilirubin AST ALT Alkaline Phosphatase Lactate Dehydrogenase Total Creatine Kinase Troponin T Total Protein Albumin Triglycerides Cholesterol HDL Cholesterol Urine Creatinine Urine Total Protein Salicylates Acetaminophen 11/28/18 11/28/18 11/28/18 14:15 15:14 15:14 WBC RBC Hgb Hct RDW Lymph % (Auto) Lymph # [place] # Seg Neutrophils % Seg Neuts % (Manual) Lymphocytes % (Manual) Nucleated RBC % Seg Neutrophils # Seg Neutrophils # Man Monocytes # (Manual) PT INR APTT POC ABG pCO2 ABG pO2 ABG HCO3 ABG O2 Saturation ABG Base Excess ABG Hemoglobin Oxyhemoglobin Sodium 151 H Potassium Chloride 112.4 H Carbon Dioxide 21 L D BUN Creatinine Glucose 167 H POC Glucose Hemoglobin A1c Lactic Acid 4.80 H* 5.00 H* Calcium Phosphorus Magnesium Total Bilirubin Direct Bilirubin AST ALT Alkaline Phosphatase Lactate Dehydrogenase Total Creatine Kinase Troponin T Total Protein Albumin Triglycerides Cholesterol HDL Cholesterol Urine Creatinine Urine Total Protein Salicylates Acetaminophen 11/28/18 11/28/18 11/28/18 15:22 16:22 17:11 WBC RBC Hgb Hct RDW Lymph % (Auto) Lymph # [place] # Seg Neutrophils % Seg Neuts % (Manual) Lymphocytes % (Manual) Nucleated RBC % Seg Neutrophils # Seg Neutrophils # Man Monocytes # (Manual) PT INR APTT POC ABG pCO2 ABG pO2 ABG HCO3 ABG O2 Saturation ABG Base Excess ABG Hemoglobin Oxyhemoglobin Sodium Potassium Chloride Carbon Dioxide BUN Creatinine Glucose POC Glucose 114 H 120 H 183 H Hemoglobin A1c Lactic Acid Calcium Phosphorus Magnesium Total Bilirubin Direct Bilirubin AST ALT Alkaline Phosphatase Lactate Dehydrogenase Total Creatine Kinase Troponin T Total Protein Albumin Triglycerides Cholesterol HDL Cholesterol Urine Creatinine Urine Total Protein Salicylates Acetaminophen 11/28/18 11/28/18 11/28/18 17:17 18:18 19:26 WBC RBC Hgb Hct RDW Lymph % (Auto) Lymph # [place] # Seg Neutrophils % Seg Neuts % (Manual) Lymphocytes % (Manual) Nucleated RBC % Seg Neutrophils # Seg Neutrophils # Man Monocytes # (Manual) PT INR APTT POC ABG pCO2 ABG pO2 ABG HCO3 ABG O2 Saturation ABG Base Excess ABG Hemoglobin Oxyhemoglobin Sodium 151 H Potassium Chloride 112.9 H Carbon Dioxide 21 L BUN Creatinine Glucose 265 H POC Glucose 269 H 243 H Hemoglobin A1c Lactic Acid Calcium Phosphorus Magnesium Total Bilirubin Direct Bilirubin AST ALT Alkaline Phosphatase Lactate Dehydrogenase Total Creatine Kinase Troponin T Total Protein Albumin Triglycerides Cholesterol HDL Cholesterol Urine Creatinine Urine Total Protein Salicylates Acetaminophen 11/28/18 11/28/18 11/29/18 20:45 21:44 05:55 WBC 29.7 H RBC 5.93 H Hgb 16.6 H Hct 51.0 H RDW 19.7 H Lymph % (Auto) Lymph # [place] # Seg Neutrophils % Seg Neuts % (Manual) 93.0 H Lymphocytes % (Manual) 4.0 L Nucleated RBC % Seg Neutrophils # Seg Neutrophils # Man 27.6 H Monocytes # (Manual) 0.9 H PT INR APTT POC ABG pCO2 ABG pO2 ABG HCO3 ABG O2 Saturation ABG Base Excess ABG Hemoglobin Oxyhemoglobin Sodium Potassium Chloride Carbon Dioxide BUN Creatinine Glucose POC Glucose 177 H 124 H Hemoglobin A1c Lactic Acid Calcium Phosphorus Magnesium Total Bilirubin Direct Bilirubin AST ALT Alkaline Phosphatase Lactate Dehydrogenase Total Creatine Kinase Troponin T Total Protein Albumin Triglycerides Cholesterol HDL Cholesterol Urine Creatinine Urine Total Protein Salicylates Acetaminophen 11/29/18 11/29/18 11/29/18 06:42 07:36 09:08 WBC RBC Hgb Hct RDW Lymph % (Auto) Lymph # [place] # Seg Neutrophils % Seg Neuts % (Manual) Lymphocytes % (Manual) Nucleated RBC % Seg Neutrophils # Seg Neutrophils # Man Monocytes # (Manual) PT INR APTT POC ABG pCO2 ABG pO2 ABG HCO3 ABG O2 Saturation ABG Base Excess ABG Hemoglobin Oxyhemoglobin Sodium 152 H Potassium 5.4 H Chloride 110.6 H Carbon Dioxide 20 L BUN 20 H Creatinine 1.6 H Glucose 237 H POC Glucose 118 H 146 H Hemoglobin A1c Lactic Acid Calcium Phosphorus Magnesium Total Bilirubin 3.80 H Direct Bilirubin AST 351 H ALT 123 H Alkaline Phosphatase 222 H Lactate Dehydrogenase Total Creatine Kinase Troponin T Total Protein Albumin 3.5 L Triglycerides Cholesterol HDL Cholesterol Urine Creatinine Urine Total Protein Salicylates Acetaminophen 11/29/18 11/29/18 11/29/18 11:00 11:44 13:40 WBC RBC Hgb Hct RDW Lymph % (Auto) Lymph # [place] # Seg Neutrophils % Seg Neuts % (Manual) Lymphocytes % (Manual) Nucleated RBC % Seg Neutrophils # Seg Neutrophils # Man Monocytes # (Manual) PT INR APTT POC ABG pCO2 ABG pO2 ABG HCO3 ABG O2 Saturation ABG Base Excess ABG Hemoglobin Oxyhemoglobin Sodium 155 H Potassium 5.8 H Chloride 110.1 H Carbon Dioxide 15 L BUN 21 H Creatinine 1.4 H Glucose 204 H POC Glucose 203 H Hemoglobin A1c Lactic Acid Calcium Phosphorus Magnesium Total Bilirubin 3.70 H Direct Bilirubin AST 361 H ALT 125 H Alkaline Phosphatase 227 H Lactate Dehydrogenase Total Creatine Kinase Troponin T Total Protein Albumin 3.4 L Triglycerides Cholesterol HDL Cholesterol Urine Creatinine 117.4 H Urine Total Protein 120 H Salicylates Acetaminophen 11/29/18 11/29/18 11/29/18 16:29 16:46 16:46 WBC RBC Hgb Hct RDW Lymph % (Auto) Lymph # [place] # Seg Neutrophils % Seg Neuts % (Manual) Lymphocytes % (Manual) Nucleated RBC % Seg Neutrophils # Seg Neutrophils # Man Monocytes # (Manual) PT INR APTT 49.5 H POC ABG pCO2 ABG pO2 ABG HCO3 ABG O2 Saturation ABG Base Excess ABG Hemoglobin Oxyhemoglobin Sodium 148 H Potassium Chloride 108.3 H Carbon Dioxide 21 L BUN 22 H Creatinine 1.4 H Glucose 152 H POC Glucose 158 H Hemoglobin A1c Lactic Acid Calcium Phosphorus Magnesium Total Bilirubin Direct Bilirubin AST ALT Alkaline Phosphatase Lactate Dehydrogenase Total Creatine Kinase Troponin T Total Protein Albumin Triglycerides Cholesterol HDL Cholesterol Urine Creatinine Urine Total Protein Salicylates Acetaminophen 11/29/18 11/29/18 11/30/18 22:02 23:58 05:51 WBC RBC Hgb Hct RDW Lymph % (Auto) Lymph # [place] # Seg Neutrophils % Seg Neuts % (Manual) Lymphocytes % (Manual) Nucleated RBC % Seg Neutrophils # Seg Neutrophils # Man Monocytes # (Manual) PT INR APTT 63.2 H* POC ABG pCO2 ABG pO2 ABG HCO3 ABG O2 Saturation ABG Base Excess ABG Hemoglobin Oxyhemoglobin Sodium Potassium Chloride Carbon Dioxide BUN Creatinine Glucose POC Glucose 183 H 156 H Hemoglobin A1c Lactic Acid Calcium Phosphorus Magnesium Total Bilirubin Direct Bilirubin AST ALT Alkaline Phosphatase Lactate Dehydrogenase Total Creatine Kinase Troponin T Total Protein Albumin Triglycerides Cholesterol HDL Cholesterol Urine Creatinine Urine Total Protein Salicylates Acetaminophen 11/30/18 11/30/18 11/30/18 07:18 07:58 09:40 WBC 28.8 H RBC 6.58 H Hgb 18.2 H Hct 57.2 H* D RDW 19.3 H Lymph % (Auto) Lymph # [place] # Seg Neutrophils % Seg Neuts % (Manual) Lymphocytes % (Manual) Nucleated RBC % Seg Neutrophils # Seg Neutrophils # Man Monocytes # (Manual) PT INR APTT POC ABG pCO2 ABG pO2 ABG HCO3 ABG O2 Saturation ABG Base Excess ABG Hemoglobin Oxyhemoglobin Sodium 150 H Potassium Chloride 110.3 H Carbon Dioxide 20 L BUN Creatinine Glucose 149 H POC Glucose 190 H Hemoglobin A1c Lactic Acid Calcium Phosphorus Magnesium 3.20 H Total Bilirubin 3.70 H Direct Bilirubin AST 480 H ALT 213 H Alkaline Phosphatase 258 H Lactate Dehydrogenase Total Creatine Kinase Troponin T Total Protein Albumin 3.4 L Triglycerides Cholesterol HDL Cholesterol Urine Creatinine Urine Total Protein Salicylates Acetaminophen 11/30/18 11/30/18 11/30/18 11:24 12:17 16:22 WBC RBC Hgb Hct RDW Lymph % (Auto) Lymph # [place] # Seg Neutrophils % Seg Neuts % (Manual) Lymphocytes % (Manual) Nucleated RBC % Seg Neutrophils # Seg Neutrophils # Man Monocytes # (Manual) PT INR APTT 62.1 H* POC ABG pCO2 ABG pO2 ABG HCO3 ABG O2 Saturation ABG Base Excess ABG Hemoglobin Oxyhemoglobin Sodium Potassium Chloride Carbon Dioxide BUN Creatinine Glucose POC Glucose 242 H 165 H Hemoglobin A1c Lactic Acid Calcium Phosphorus Magnesium Total Bilirubin Direct Bilirubin AST ALT Alkaline Phosphatase Lactate Dehydrogenase Total Creatine Kinase Troponin T Total Protein Albumin Triglycerides Cholesterol HDL Cholesterol Urine Creatinine Urine Total Protein Salicylates Acetaminophen 11/30/18 12/01/18 12/01/18 21:32 05:32 05:32 WBC 24.7 H RBC 6.30 H Hgb 17.8 H Hct 54.2 H RDW 19.2 H Lymph % (Auto) Lymph # [place] # Seg Neutrophils % Seg Neuts % (Manual) 87.0 H Lymphocytes % (Manual) 10.0 L Nucleated RBC % 2.0 H Seg Neutrophils # Seg Neutrophils # Man 21.5 H Monocytes # (Manual) PT INR APTT 50.0 H POC ABG pCO2 ABG pO2 ABG HCO3 ABG O2 Saturation ABG Base Excess ABG Hemoglobin Oxyhemoglobin Sodium Potassium Chloride Carbon Dioxide BUN Creatinine Glucose POC Glucose 146 H Hemoglobin A1c Lactic Acid Calcium Phosphorus Magnesium Total Bilirubin Direct Bilirubin AST ALT Alkaline Phosphatase Lactate Dehydrogenase Total Creatine Kinase Troponin T Total Protein Albumin Triglycerides Cholesterol HDL Cholesterol Urine Creatinine Urine Total Protein Salicylates Acetaminophen 12/01/18 12/01/18 12/01/18 07:45 10:39 11:35 WBC RBC Hgb Hct RDW Lymph % (Auto) Lymph # [place] # Seg Neutrophils % Seg Neuts % (Manual) Lymphocytes % (Manual) Nucleated RBC % Seg Neutrophils # Seg Neutrophils # Man Monocytes # (Manual) PT INR APTT POC ABG pCO2 30.6 L ABG pO2 ABG HCO3 ABG O2 Saturation ABG Base Excess ABG Hemoglobin Oxyhemoglobin Sodium Potassium Chloride Carbon Dioxide BUN Creatinine Glucose POC Glucose 179 H 219 H Hemoglobin A1c Lactic Acid Calcium Phosphorus Magnesium Total Bilirubin Direct Bilirubin AST ALT Alkaline Phosphatase Lactate Dehydrogenase Total Creatine Kinase Troponin T Total Protein Albumin Triglycerides Cholesterol HDL Cholesterol Urine Creatinine Urine Total Protein Salicylates Acetaminophen 12/01/18 12/01/18 12/01/18 13:45 13:45 16:33 WBC RBC Hgb Hct RDW Lymph % (Auto) Lymph # [place] # Seg Neutrophils % Seg Neuts % (Manual) Lymphocytes % (Manual) Nucleated RBC % Seg Neutrophils # Seg Neutrophils # [place] Monocytes # (Manual) PT INR APTT POC ABG pCO2 ABG pO2 ABG HCO3 ABG O2 Saturation ABG Base Excess ABG Hemoglobin Oxyhemoglobin Sodium 136 L D Potassium Chloride Carbon Dioxide BUN 29 H Creatinine 1.9 H D Glucose 360 H POC Glucose 166 H Hemoglobin A1c Lactic Acid Calcium 8.0 L Phosphorus Magnesium Total Bilirubin Direct Bilirubin AST ALT Alkaline Phosphatase Lactate Dehydrogenase 976 H Total Creatine Kinase Troponin T Total Protein Albumin Triglycerides Cholesterol HDL Cholesterol Urine Creatinine Urine Total Protein Salicylates Acetaminophen 12/01/18 12/01/18 12/02/18 17:40 20:04 04:45 WBC RBC Hgb Hct RDW Lymph % (Auto) Lymph # [place] # Seg Neutrophils % Seg Neuts % (Manual) Lymphocytes % (Manual) Nucleated RBC % Seg Neutrophils # Seg Neutrophils # Man Monocytes # (Manual) PT INR APTT 68.9 H* POC ABG pCO2 ABG pO2 ABG HCO3 ABG O2 Saturation ABG Base Excess ABG Hemoglobin Oxyhemoglobin Sodium 135 L Potassium Chloride 96.8 L Carbon Dioxide BUN 33 H Creatinine 2.0 H Glucose 302 H POC Glucose 215 H Hemoglobin A1c Lactic Acid Calcium 8.0 L Phosphorus Magnesium Total Bilirubin 2.00 H Direct Bilirubin AST 156 H ALT 183 H Alkaline Phosphatase 225 H Lactate Dehydrogenase Total Creatine Kinase Troponin T Total Protein 5.9 L D Albumin 2.6 L Triglycerides Cholesterol HDL Cholesterol Urine Creatinine Urine Total Protein Salicylates Acetaminophen 12/02/18 12/02/18 12/02/18 04:45 05:45 07:00 WBC 23.8 H RBC 6.28 H Hgb 17.5 H Hct 53.9 H RDW 19.3 H Lymph % (Auto) Lymph # [place] # Seg Neutrophils % Seg Neuts % (Manual) 83.0 H Lymphocytes % (Manual) 12.0 L Nucleated RBC % Seg Neutrophils # Seg Neutrophils # Man 19.8 H Monocytes # (Manual) 1.2 H PT INR APTT 51.5 H POC ABG pCO2 ABG pO2 ABG HCO3 ABG O2 Saturation ABG Base Excess ABG Hemoglobin Oxyhemoglobin Sodium Potassium Chloride Carbon Dioxide BUN Creatinine Glucose POC Glucose 336 H Hemoglobin A1c Lactic Acid Calcium Phosphorus Magnesium Total Bilirubin Direct Bilirubin AST ALT Alkaline Phosphatase Lactate Dehydrogenase Total Creatine Kinase Troponin T Total Protein Albumin Triglycerides Cholesterol HDL Cholesterol Urine Creatinine Urine Total Protein Salicylates Acetaminophen 12/02/18 12/02/18 07:30 11:07 WBC RBC Hgb Hct RDW Lymph % (Auto) Lymph # [place] # Seg Neutrophils % Seg Neuts % (Manual) Lymphocytes % (Manual) Nucleated RBC % Seg Neutrophils # Seg Neutrophils # Man Monocytes # (Manual) PT INR APTT POC ABG pCO2 ABG pO2 ABG HCO3 ABG O2 Saturation ABG Base Excess ABG Hemoglobin Oxyhemoglobin Sodium Potassium Chloride Carbon Dioxide BUN Creatinine Glucose POC Glucose 143 H 249 H Hemoglobin A1c Lactic Acid Calcium Phosphorus Magnesium Total Bilirubin Direct Bilirubin AST ALT Alkaline Phosphatase Lactate Dehydrogenase Total Creatine Kinase Troponin T Total Protein Albumin Triglycerides Cholesterol HDL Cholesterol Urine Creatinine Urine Total Protein Salicylates Acetaminophen
[2018-12-02] MEDS ORDERED: HURRICAINE ONE 20% TOPICAL SPRAY MM NR (13:00)
[2018-12-02] MEDS: NACL 0.9% 1000 ML 1,000 ML IV SCH ×2 (14:02→21:46)
--- NOTE | 2018-12-02 14:28 | Progress Note ---
Assessment and Plan 38-year-old female with scleroderma, severe cardiomyopathy with AICD and runs of V tach and V fib, and recent transition from prednisone to CellCept 2 weeks ago with development of cyanotic upper extremity left middle digit and bilateral fe et (predominantly forefoot). There is definitely an element of Raynaud's disease secondary to scleroderma. Previously, the cyanosis partially resolved with warming, but currently the cyanosis does not improve with warming. Vascular ultrasound demonstrated a component of arterial occlusion. The patient continues to be hypotensive. Left middle finger is starting to demarcate. There are patches of ischemia of the right hindfoot and bilateral forefeet are ischemic. The patient is hypotensive. The patient is not amenable at this time for thrombolysis due to underlying hemodynamic issues. In addition, echo has not been performed to rule out central source of thrombus. For Raynaud's, given the patient's underlying cardiac issues, she has not an optimal patient for amlodipine or nifedipine. Options include Trental and nitropaste applied to the feet and left third finger, but this may need to be removed if SBP less than 100. I also ordered to keep the patient's extemities as warm as possible to decrease cold-associated spasm. Differential for arterial occlusive component includes arterial thrombus from cellcept (listed as an uncommon side effect), heparin-induced thrombocytopenia (platelets have dropped since yesterday), and patient's underlying Raynaud's with hypotension. I suspect the underlying cause may be due to severe spasm of the distal vessels resulting in occlusion of the distal vessels from underlying Raynaud's secondary to scleroderma. Awaiting echo to exclude cardioembolic source. Unable to obtain CTA at this time due to elevated creatinine. Arterial doppler did not demonstrate a residual abdominal source of thrombus extending to the legs. HIT panel pending. If HIT panel comes back negative, then Agatroban can be switched to heparin. Ordered new arterial dopplers. Subjective Date of service: 12/02/18 Principal diagnosis: thrombus Interval history: The left third digit has demarcated and is nonsalvageable at the tip. The bilateral feet are ischemic, cold, with a patch of ischemic tissue of the right hindfoot. Both legs are cool until the thighs. Both arms are cool until the upper arm. Patient is hypotensive. Nonpalpable pedal and radial and ulnar p ulses. Her bilateral feet and left upper extremity fingers are painful. Motor function in the toes is still present Objective - Constitutional Vitals: Vital Signs - 12hr 12/02/18 12/02/18 12/02/18 02:21 02:31 02:41 Pulse Rate 70 70 70 Pulse Rate [ From Monitor] Pulse Rate [ Left Radial] Respiratory 24 11 L 28 H Rate Blood Pressure 101/61 113/76 113/76 O2 Sat by Pulse 100 81 L 80 L Oximetry 12/02/18 12/02/18 12/02/18 02:51 03:01 03:11 Pulse Rate 70 70 70 Pulse Rate [ From Monitor] Pulse Rate [ Left Radial] Respiratory 21 16 19 Rate Blood Pressure 113/76 101/72 113/76 O2 Sat by Pulse 82 L 75 L 85 Oximetry 12/02/18 12/02/18 12/02/18 03:21 03:31 03:41 Pulse Rate 70 70 70 Pulse Rate [ From Monitor] Pulse Rate [ Left Radial] Respiratory 22 12 17 Rate Blood Pressure 118/44 118/44 118/44 O2 Sat by Pulse 88 100 98 Oximetry 12/02/18 12/02/18 12/02/18 03:51 04:00 04:01 Pulse Rate 70 70 Pulse Rate [ 70 From Monitor] Pulse Rate [ 87 Left Radial] Respiratory 13 18 20 Rate Blood Pressure 118/44 118/44 O2 Sat by Pulse 100 95 93 Oximetry 12/02/18 12/02/18 12/02/18 04:11 04:21 04:31 Pulse Rate 70 70 70 Pulse Rate [ From Monitor] Pulse Rate [ Left Radial] Respiratory 21 18 20 Rate Blood Pressure 118/44 102/61 99/62 O2 Sat by Pulse 100 100 99 Oximetry 12/02/18 12/02/18 12/02/18 04:41 04:51 05:01 Pulse Rate 70 70 70 Pulse Rate [ From Monitor] Pulse Rate [ Left Radial] Respiratory 16 13 21 Rate Blood Pressure 99/62 99/62 99/62 O2 Sat by Pulse 100 88 85 Oximetry 12/02/18 12/02/18 12/02/18 05:11 05:21 05:31 Pulse Rate 70 70 70 Pulse Rate [ From Monitor] Pulse Rate [ Left Radial] Respiratory 27 H 25 H 21 Rate Blood Pressure 79/53 79/53 97/51 O2 Sat by Pulse 85 99 100 Oximetry 12/02/18 12/02/18 12/02/18 05:41 05:51 06:01 Pulse Rate 70 70 70 Pulse Rate [ From Monitor] Pulse Rate [ Left Radial] Respiratory 25 H 31 H 14 Rate Blood Pressure 97/51 97/51 97/51 O2 Sat by Pulse 86 99 91 Oximetry 12/02/18 12/02/18 12/02/18 06:11 06:21 06:31 Pulse Rate 70 70 70 Pulse Rate [ From Monitor] Pulse Rate [ Left Radial] Respiratory 21 22 20 Rate Blood Pressure 97/51 94/59 83/68 O2 Sat by Pulse 85 89 100 Oximetry 12/02/18 12/02/18 12/02/18 06:41 06:51 07:01 Pulse Rate 70 70 70 Pulse Rate [ From Monitor] Pulse Rate [ Left Radial] Respiratory 42 H 17 25 H Rate Blood Pressure 83/68 99/52 108/57 O2 Sat by Pulse 98 97 79 L Oximetry 12/02/18 12/02/18 12/02/18 07:04 07:11 07:21 Pulse Rate 70 70 Pulse Rate [ From Monitor] Pulse Rate [ Left Radial] Respiratory 18 15 Rate Blood Pressure 108/57 112/60 O2 Sat by Pulse 97 98 100 Oximetry 12/02/18 12/02/18 12/02/18 07:31 07:41 07:51 Pulse Rate 70 70 70 Pulse Rate [ From Monitor] Pulse Rate [ Left Radial] Respiratory 14 19 15 Rate Blood Pressure 97/54 105/63 93/63 O2 Sat by Pulse 96 98 100 Oximetry 12/02/18 12/02/18 12/02/18 08:00 08:01 08:11 Pulse Rate 70 70 Pulse Rate [ 70 From Monitor] Pulse Rate [ Left Radial] Respiratory 16 13 25 H Rate Blood Pressure 84/63 84/63 O2 Sat by Pulse 98 99 100 Oximetry 12/02/18 12/02/18 12/02/18 08:21 08:31 08:41 Pulse Rate 70 70 70 Pulse Rate [ From Monitor] Pulse Rate [ Left Radial] Respiratory 9 L 15 14 Rate Blood Pressure 84/63 84/63 91/58 O2 Sat by Pulse 98 94 78 L Oximetry 12/02/18 12/02/18 12/02/18 08:51 09:01 09:08 Pulse Rate 70 70 70 Pulse Rate [ From Monitor] Pulse Rate [ Left Radial] Respiratory 22 14 Rate Blood Pressure 96/51 77/50 95/76 O2 Sat by Pulse 100 86 Oximetry 12/02/18 12/02/18 12/02/18 09:11 09:21 09:31 Pulse Rate 70 70 70 Pulse Rate [ From Monitor] Pulse Rate [ Left Radial] Respiratory 14 Rate Blood Pressure 95/76 58/22 47/32 O2 Sat by Pulse 98 99 77 L Oximetry 12/02/18 12/02/18 12/02/18 09:41 09:51 10:00 Pulse Rate 71 71 70 Pulse Rate [ From Monitor] Pulse Rate [ Left Radial] Respiratory Rate Blood Pressure 47/32 57/34 O2 Sat by Pulse 78 L 74 L Oximetry 12/02/18 12/02/18 12/02/18 10:01 10:11 10:21 Pulse Rate 70 71 Pulse Rate [ From Monitor] Pulse Rate [ Left Radial] Respiratory Rate Blood Pressure 96/73 96/73 185/97 O2 Sat by Pulse 97 65 L Oximetry 12/02/18 12/02/18 12/02/18 10:31 10:41 10:51 Pulse Rate 72 71 74 Pulse Rate [ From Monitor] Pulse Rate [ Left Radial] Respiratory Rate Blood Pressure 185/97 159/141 120/102 O2 Sat by Pulse 78 L 76 L 88 Oximetry 12/02/18 12/02/18 12/02/18 11:01 11:11 11:21 Pulse Rate 73 71 73 Pulse Rate [ From Monitor] Pulse Rate [ Left Radial] Respiratory Rate Blood Pressure 120/102 120/102 186/159 O2 Sat by Pulse 79 L 83 L 81 L Oximetry 12/02/18 12/02/18 12/02/18 11:31 11:41 11:51 Pulse Rate 73 72 72 Pulse Rate [ From Monitor] Pulse Rate [ Left Radial] Respiratory Rate Blood Pressure 211/97 208/182 152/130 O2 Sat by Pulse 74 L 75 L 84 Oximetry 12/02/18 12/02/18 12/02/18 12:00 12:01 12:11 Pulse Rate 77 70 Pulse Rate [ 70 From Monitor] Pulse Rate [ Left Radial] Respiratory 16 21 Rate Blood Pressure 152/130 101/56 O2 Sat by Pulse 98 69 L Oximetry 12/02/18 12/02/18 12/02/18 12:21 12:31 12:41 Pulse Rate 70 70 70 Pulse Rate [ From Monitor] Pulse Rate [ Left Radial] Respiratory Rate Blood Pressure 105/58 89/69 89/69 O2 Sat by Pulse 100 99 Oximetry 12/02/18 12/02/18 12/02/18 12:51 13:01 14:00 Pulse Rate 70 70 70 Pulse Rate [ From Monitor] Pulse Rate [ Left Radial] Respiratory Rate Blood Pressure 89/69 89/69 94/57 O2 Sat by Pulse 100 Oximetry 12/02/18 14:02 Pulse Rate 70 Pulse Rate [ From Monitor] Pulse Rate [ Left Radial] Respiratory Rate Blood Pressure 94/57 O2 Sat by Pulse Oximetry General appearance: Present: no acute distress - EENT Eyes: EOM intact ENT: hearing intact - Respiratory Respiratory effort: normal Extremities: abnormal (see subjective) - Psychiatric Psychiatric: appropriate mood/affect, cooperative - Labs CBC & Chem 7: 12/02/18 04:45 12/02/18 04:45 Labs: Abnormal lab results 12/01/18 12/01/18 12/01/18 Range/Units 13:45 16:33 17:40 WBC (4.5-11.0) K/mm3 RBC (3.65-5.03) M/mm3 Hgb (10.1-14.3) gm/dl Hct (30.3-42.9) % RDW (13.2-15.2) % Seg Neuts % (Manual) (40.0-70.0) % Lymphocytes % (Manual) (13.4-35.0) % Seg Neutrophils # Man (1.8-7.7) K/mm3 Monocytes # (Manual) (0.0-0.8) K/mm3 APTT 68.9 H* (24.2-36.6) Sec. Sodium (137-145) mmol/L Chloride (98-107) mmol/L BUN (7-17) mg/dL Creatinine (0.7-1.2) mg/dL Glucose (65-100) mg/dL POC Glucose 166 H (70-105) Calcium (8.4-10.2) mg/dL Total Bilirubin (0.1-1.2) mg/dL AST (5-40) units/L ALT (7-56) units/L Alkaline Phosphatase (35-129) units/L Lactate Dehydrogenase 976 H (91-180) units/L Total Protein (6.3-8.2) g/dL Albumin (3.9-5) g/dL 12/01/18 12/02/18 12/02/18 Range/Units 20:04 04:45 04:45 WBC 23.8 H (4.5-11.0) K/mm3 RBC 6.28 H (3.65-5.03) M/mm3 Hgb 17.5 H (10.1-14.3) gm/dl Hct 53.9 H (30.3-42.9) % RDW 19.3 H (13.2-15.2) % Seg Neuts % (Manual) 83.0 H (40.0-70.0) % Lymphocytes % (Manual) 12.0 L (13.4-35.0) % Seg Neutrophils # Man 19.8 H (1.8-7.7) K/mm3 Monocytes # (Manual) 1.2 H (0.0-0.8) K/mm3 APTT (24.2-36.6) Sec. Sodium 135 L (137-145) mmol/L Chloride 96.8 L (98-107) mmol/L BUN 33 H (7-17) mg/dL Creatinine 2.0 H (0.7-1.2) mg/dL Glucose 302 H (65-100) mg/dL POC Glucose 215 H (70-105) Calcium 8.0 L (8.4-10.2) mg/dL Total Bilirubin 2.00 H (0.1-1.2) mg/dL AST 156 H (5-40) units/L ALT 183 H (7-56) units/L Alkaline Phosphatase 225 H (35-129) units/L Lactate Dehydrogenase (91-180) units/L Total Protein 5.9 L D (6.3-8.2) g/dL Albumin 2.6 L (3.9-5) g/dL 12/02/18 12/02/18 12/02/18 Range/Units 05:45 07:00 07:30 WBC (4.5-11.0) K/mm3 RBC (3.65-5.03) M/mm3 Hgb (10.1-14.3) gm/dl Hct (30.3-42.9) % RDW (13.2-15.2) % Seg Neuts % (Manual) (40.0-70.0) % Lymphocytes % (Manual) (13.4-35.0) % Seg Neutrophils # Man (1.8-7.7) K/mm3 Monocytes # (Manual) (0.0-0.8) K/mm3 APTT 51.5 H (24.2-36.6) Sec. Sodium (137-145) mmol/L Chloride (98-107) mmol/L BUN (7-17) mg/dL Creatinine (0.7-1.2) mg/dL Glucose (65-100) mg/dL POC Glucose 336 H 143 H (70-105) Calcium (8.4-10.2) mg/dL Total Bilirubin (0.1-1.2) mg/dL AST (5-40) units/L ALT (7-56) units/L Alkaline Phosphatase (35-129) units/L Lactate Dehydrogenase (91-180) units/L Total Protein (6.3-8.2) g/dL Albumin (3.9-5) g/dL 12/02/18 Range/Units 11:07 WBC (4.5-11.0) K/mm3 RBC (3.65-5.03) M/mm3 Hgb (10.1-14.3) gm/dl Hct (30.3-42.9) % RDW (13.2-15.2) % Seg Neuts % (Manual) (40.0-70.0) % Lymphocytes % (Manual) (13.4-35.0) % Seg Neutrophils # Man (1.8-7.7) K/mm3 Monocytes # (Manual) (0.0-0.8) K/mm3 APTT (24.2-36.6) Sec. Sodium (137-145) mmol/L Chloride (98-107) mmol/L BUN (7-17) mg/dL Creatinine (0.7-1.2) mg/dL Glucose (65-100) mg/dL POC Glucose 249 H (70-105) Calcium (8.4-10.2) mg/dL Total Bilirubin (0.1-1.2) mg/dL AST (5-40) units/L ALT (7-56) units/L Alkaline Phosphatase (35-129) units/L Lactate Dehydrogenase (91-180) units/L Total Protein (6.3-8.2) g/dL Albumin (3.9-5) g/dL Medications & Allergies - Medications Allergies/Adverse Reactions: Allergies lisinopril Adverse Reaction (Severe, Verified 12/17/13 19:00) SORE THROAT;PERSISTENT COUGH Home Medications: Home Medications Medication Instructions Recorded Confirmed Last Taken Type Aspirin [Aspirin BABY CHEW TAB] 81 mg PO QDAY 11/28/18 11/29/18 11/26/18 History Fluticasone [Flonase] 1 spray NS BID 11/28/18 11/28/18 Unknown History Furosemide [Lasix TAB] 40 mg PO BID 11/28/18 11/28/18 Unknown History Ibuprofen [Motrin] 600 mg PO Q6H PRN 11/28/18 11/28/18 Unknown History Montelukast [Singulair] 10 mg PO QPM 11/28/18 11/28/18 Unknown History Mycophenolate [Cellcept] 500 mg PO BID 11/28/18 11/28/18 Unknown History Mycophenolate [Cellcept] 500 mg PO BID PRN MDD 2 TABS 11/28/18 11/28/18 Unknown History Pantoprazole [Protonix] 40 mg PO QDAY 11/28/18 11/28/18 Unknown History Sacubitril/Valsartan [Entresto 1 each PO BID 11/28/18 11/28/18 Unknown History 49-51 mg] predniSONE [Deltasone] 50 mg PO QDAY 11/28/18 11/28/18 Unknown History raNITIdine HCl [Zantac] 150 mg PO BID 11/28/18 11/28/18 Unknown History Amitriptyline [Elavil] 25 mg PO HS 11/29/18 11/29/18 11/26/18 History Aspirin [Adult Aspirin] 81 mg PO ONCE 11/29/18 11/29/18 11/26/18 History Entresto 49-51 mg 49 mg PO BID 11/29/18 11/29/18 11/26/18 History HYDROcodone/APAP 5-325 5 mg PO Q6HR PRN 11/29/18 11/29/18 Unknown History Active Medications: Generic Name Dose Route Start Last Admin Trade Name Freq PRN Reason Stop Dose Admin Acetaminophen 650 mg 11/28/18 03:02 Tylenol PO Q4H PRN Pain MILD(1-3)/Fever >100.5/TURPIN Alprazolam 0.25 mg 11/30/18 01:09 11/30/18 01:21 Xanax PO 0.25 mg Q8H PRN Administration Anxiety Amiodarone HCl 200 mg 12/02/18 12:00 12/02/18 12:30 Cordarone PO 200 mg BID VIOLA Administration Amitriptyline HCl 25 mg 11/29/18 22:00 12/01/18 21:22 Elavil PO 25 mg HS VIOLA Administration Aspirin 81 mg 11/29/18 10:00 12/02/18 09:04 Baby Aspirin PO 81 mg QDAY VIOLA Administration Benzocaine 3 spray 12/02/18 13:00 Hurricaine One 20% Topical [place] MM 12/03/18 23:59 PREOP NR Dextrose 0 ml 11/28/18 02:19 D50w (25gm) Syringe IV PRN PRN Hypoglycemia Fluticasone Propionate 50 mcg 11/29/18 10:00 12/02/18 09:21 Flonase NS 50 mcg BID VIOLA Administration Hydralazine HCl 10 mg 11/28/18 03:41 Apresoline IV Q6HR PRN Blood Pressure Hydrophilic Ointment 1 applic 11/30/18 11:55 Vaseline Lip Therapy TP DIRECT PRN DRY LIPS Argatroban 250 mg/ Sodium 250 mls @ 3.682 mls/hr 11/29/18 13:00 12/01/18 02:17 Chloride IV 0.5 mcg/kg/min TITR VIOLA 3.682 mls/hr Administration Protocol 0.5 MCG/KG/MIN Sodium Chloride 1,000 mls @ 125 mls/hr 12/02/18 13:00 12/02/18 14:02 Nacl 0.9% 1000 Ml IV 125 mls/hr DIRECT VIOLA Administration Insulin Human Isoph/Insulin Regular 15 unit 12/02/18 17:00 Humulin 70/30 SUB-Q BIDDIAB VIOLA Insulin Human Lispro 0 unit 11/30/18 09:00 12/02/18 12:07 Humalog SUB-Q 3 unit ACHS VIOLA Administration Protocol Metoprolol Tartrate 25 mg 11/30/18 14:00 12/02/18 14:00 Lopressor PO 25 mg Q8HR VIOLA Administration Montelukast Sodium 10 mg 11/29/18 18:00 12/01/18 17:17 Singulair PO 10 mg QPM VIOLA Administration Morphine Sulfate 2 mg 11/28/18 03:02 12/02/18 03:58 Morphine IV 2 mg Q4H PRN Administration Pain, Moderate (4-6) Nitroglycerin 0.75 inch 11/29/18 14:00 12/02/18 14:02 Nitro-Bid 2% TP 0.75 inch QIDNTG VIOLA Administration Protocol Ondansetron HCl 4 mg 11/28/18 03:02 Zofran IV Q8H PRN Nausea And Vomiting Pantoprazole Sodium 40 mg 11/29/18 10:00 12/02/18 09:04 Protonix PO 40 mg QDAY VIOLA Administration Pentoxifylline 400 mg 11/29/18 13:00 12/02/18 09:04 Trental PO 400 mg Q12HR VIOLA Administration Prednisone 50 mg 11/29/18 10:00 12/02/18 09:08 Deltasone PO 50 mg QDAY VIOLA Administration Sodium Chloride 10 ml 11/28/18 10:00 12/02/18 09:09 Sodium Chloride Flush Syringe 10 Ml IV 10 ml BID VIOLA Administration Sodium Chloride 10 ml 11/28/18 03:02 Sodium Chloride Flush Syringe 10 Ml IV PRN PRN LINE FLUSH
--- NOTE | 2018-12-02 16:53 | Vascular Lab Report ---
Left upper extremity arterial Doppler Ultrasound HISTORY: ischemic fingers, check for interval change. TECHNIQUE: Grayscale and color Doppler imaging performed. COMPARISON: Arterial ultrasound from 11/29/2018 FINDINGS: No occlusive disease identified. Smooth homogeneous plaque is seen throughout the entire le ft upper extremity with velocities in centimeters per second as follows: Proximal subclavian artery: 101 Mid subclavian artery: 45 Distal subclavian artery: 37 Proximal axillary artery: 86 Distal axillary artery: 60 Proximal brachial artery: 45 Distal brachial artery: 26 Proximal radial artery: 25 Distal radial artery: 27 Distal ulnar artery: 16 IMPRESSION: Patent arteries of the left upper extremity with velocities as outlined above Signer Name: Doc Rodriguez MD Signed: 12/02/2018 4:48 PM Workstation Name: [id number]
[2018-12-02] MEDS: SINGULAIR PO SCH (17:17)
--- NOTE | 2018-12-02 17:27 | Vascular Lab Report ---
DUPLEX DOPPLER LOWER EXTREMITY ARTERIAL, BILATERAL INDICATION: ischemic feet , assess for interval change. COMPARISON: 11/29/2018. TECHNIQUE: Arterial duplex examination of both lower extremities performed using B-mode, color flow and spectral Doppler assessment. FINDINGS: RIGHT: Common Femoral Artery: PSV 131 cm/sec. Biphasic waveform. Proximal SFA: PSV 75 cm/sec. Biphasic waveform. Mid SFA: PSV 83 cm/sec. Biphasic waveform. Distal SFA: PSV 67 cm/sec. Biphasic waveform. Popliteal artery: PSV 36 cm/sec. Biphasic waveform. Posterior tibial artery: PSV 13 cm/sec. Monophasic waveform. Dorsalis Pedis Artery: PSV 17 cm/sec. Monophasic waveform. LEFT: Common Femoral Artery: PSV 145 cm/sec. Biphasic waveform. Proximal SFA: PSV 81 cm/sec. Biphasic waveform. Mid SFA: PSV 68 cm/sec. Biphasic waveform. Distal SFA: PSV 53 cm/sec. Biphasic waveform. Popliteal artery: PSV 64 cm/sec. Biphasic waveform. Posterior tibial artery: PSV 13 cm/sec. Monophasic waveform. Dorsalis Pedis Artery: PSV 9 cm/sec. Monophasic waveform. IMPRESSION: 1. Flow is visualized in the bilateral tibial arteries on the current exam. There is persistent perip heral vascular disease in both extremities. Ankle-Brachial Index (GILBERT): * Calcified arteries > 1.4 * Normal = 0.9-1.4 * Mild PAD = 0.7-0.89 * Moderate PAD = 0.51-0.69 * Severe PAD < 0.5 Doppler Waveform: * Triphasic is normal. * Biphasic is abnormal if clear transition from triphasic signal along vascular tree. * Monophasic is abnormal. Signer Name: Mario Ovalles MD Signed: 12/02/2018 5:22 PM Workstation Name: [id number]
--- NOTE | 2018-12-02 18:32 | Progress Note ---
Assessment and Plan - Patient Problems (1) Acute kidney injury Current Visit: Yes Status: Acute Plan to address problem: Kidney function is now worsening. Suspect Pre-renal azotemia vs Acute tubular necrosis secondary to hypotension. Continue volume repletion. Follow up electrolytes and renal function (2) Hypotension Current Visit: Yes Status: Acute Plan to address problem: Gentle volume patient monitoring closely for signs of volume overload. (3) Hyperkalemia Current Visit: Yes Status: Acute Plan to address problem: Hyperkalemia on presentation improved with medical management. Follow-up electrolytes (4) Hypernatremia Current Visit: Yes Status: Acute Plan to address problem: Hypernatremia secondary to free water losses. Replace free water and follow-up sodium (5) Hyperosmolar hyperglycemic coma due to diabetes mellitus without ketoa cidosis Current Visit: Yes Status: Acute Plan to address problem: Steroid induced hyperglycemia/newly diagnosed type 2 diabetes mellitus. Blood sugar control by primary attending (6) Acrocyanosis Current Visit: Yes Status: Acute Plan to address problem: Etiology uncertain. May be related to scleroderma. Arterial Duplex shows that Diffuse peripheral vascular disease in both lower extremities with occlusive disease of the left anterior tibial and dorsalis pedis arteries. Distal disease in the left hand. 1. Acoustical Tile Drill Press Operator is ruling out embolic disease. 2. Vascular input appreciated: Possible severe vasospasm the setting of scleroderma. 3. Possible heparin- induced thrombocytopenia: Patient is on Direct Thrombin inhibitor being managed by nipple machine operator pending HIT antibody. (7) Transaminasemia Current Visit: Yes Status: Acute Plan to address problem: Probable ischemic hepatitis. 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 Monitor for signs of volume overload with volume repletion Subjective Date of service: 12/02/18 Principal diagnosis: thrombus Interval history: Patient seen lying in bed. Still complains of pain in her feet and hands. No Family member at the bedside. No nausea or vomiting Objective - Exam Narrative Exam: Obese young -[place] female lying in bed in no acute distress HEENT: NCAT, pink oral mucous membrane Neck: Supple, no venous distention CVS: S1S2 RRR with no murmur, rub or gallop Chest: Clear to auscultation Abdomen: obese, soft, nontender, no organomegaly, bowel sounds are present Extremities: No edema, cool extremities with cyanotic toes, and cyanotic left middle distal phalanx and nail bed Neuro: Awake, alert no focal deficits - Vital Signs Vital signs: Vital Signs - 12hr 12/02/18 12/02/18 12/02/18 06:31 06:41 06:51 Pulse Rate 70 70 70 Pulse Rate [ From Monitor] Respiratory 20 42 H 17 Rate Blood Pressure 83/68 83/68 99/52 O2 Sat by Pulse 100 98 97 Oximetry 12/02/18 12/02/18 12/02/18 07:01 07:04 07:11 Pulse Rate 70 70 Pulse Rate [ From Monitor] Respiratory 25 H 18 Rate Blood Pressure 108/57 108/57 O2 Sat by Pulse 79 L 97 98 Oximetry 12/02/18 12/02/18 12/02/18 07:21 07:31 07:41 Pulse Rate 70 70 70 Pulse Rate [ From Monitor] Respiratory 15 14 19 Rate Blood Pressure 112/60 97/54 105/63 O2 Sat by Pulse 100 96 98 Oximetry 12/02/18 12/02/18 12/02/18 07:51 08:00 08:01 Pulse Rate 70 70 Pulse Rate [ 70 From Monitor] Respiratory 15 16 13 Rate Blood Pressure 93/63 84/63 O2 Sat by Pulse 100 98 99 Oximetry 12/02/18 12/02/18 12/02/18 08:11 08:21 08:31 Pulse Rate 70 70 70 Pulse Rate [ From Monitor] Respiratory 25 H 9 L 15 Rate Blood Pressure 84/63 84/63 84/63 O2 Sat by Pulse 100 98 94 Oximetry 12/02/18 12/02/18 12/02/18 08:41 08:51 09:01 Pulse Rate 70 70 70 Pulse Rate [ From Monitor] Respiratory 14 22 14 Rate Blood Pressure 91/58 96/51 77/50 O2 Sat by Pulse 78 L 100 86 Oximetry 12/02/18 12/02/18 12/02/18 09:08 09:11 09:21 Pulse Rate 70 70 70 Pulse Rate [ From Monitor] Respiratory 14 Rate Blood Pressure 95/76 95/76 58/22 O2 Sat by Pulse 98 99 Oximetry 12/02/18 12/02/18 12/02/18 09:31 09:41 09:51 Pulse Rate 70 71 71 Pulse Rate [ From Monitor] Respiratory Rate Blood Pressure 47/32 47/32 57/34 O2 Sat by Pulse 77 L 78 L 74 L Oximetry 12/02/18 12/02/18 12/02/18 10:00 10:01 10:11 Pulse Rate 70 70 Pulse Rate [ From Monitor] Respiratory Rate Blood Pressure 96/73 96/73 O2 Sat by Pulse 97 Oximetry 12/02/18 12/02/18 12/02/18 10:21 10:31 10:41 Pulse Rate 71 72 71 Pulse Rate [ From Monitor] Respiratory Rate Blood Pressure 185/97 185/97 159/141 O2 Sat by Pulse 65 L 78 L 76 L Oximetry 12/02/18 12/02/18 12/02/18 10:51 11:01 11:11 Pulse Rate 74 73 71 Pulse Rate [ From Monitor] Respiratory Rate Blood Pressure 120/102 120/102 120/102 O2 Sat by Pulse 88 79 L 83 L Oximetry 12/02/18 12/02/18 12/02/18 11:21 11:31 11:41 Pulse Rate 73 73 72 Pulse Rate [ From Monitor] Respiratory Rate Blood Pressure 186/159 211/97 208/182 O2 Sat by Pulse 81 L 74 L 75 L Oximetry 12/02/18 12/02/18 12/02/18 11:51 12:00 12:01 Pulse Rate 72 77 Pulse Rate [ 70 From Monitor] Respiratory 16 21 Rate Blood Pressure 152/130 152/130 O2 Sat by Pulse 84 98 Oximetry 12/02/18 12/02/18 12/02/18 12:11 12:21 12:31 Pulse Rate 70 70 70 Pulse Rate [ From Monitor] Respiratory Rate Blood Pressure 101/56 105/58 89/69 O2 Sat by Pulse 69 L 100 Oximetry 12/02/18 12/02/18 12/02/18 12:41 12:51 13:01 Pulse Rate 70 70 70 Pulse Rate [ From Monitor] Respiratory Rate Blood Pressure 89/69 89/69 89/69 O2 Sat by Pulse 99 100 Oximetry 12/02/18 12/02/18 12/02/18 13:11 13:21 13:31 Pulse Rate 70 70 70 Pulse Rate [ From Monitor] Respiratory Rate Blood Pressure 118/93 92/72 112/48 O2 Sat by Pulse 95 Oximetry 12/02/18 12/02/18 12/02/18 13:41 13:51 14:00 Pulse Rate 70 70 Pulse Rate [ From Monitor] Respiratory Rate Blood Pressure 112/48 79/57 94/57 O2 Sat by Pulse 99 87 Oximetry 12/02/18 12/02/18 12/02/18 14:01 14:02 14:11 Pulse Rate 70 70 70 Pulse Rate [ From Monitor] Respiratory Rate Blood Pressure 94/57 94/57 94/57 O2 Sat by Pulse 85 91 Oximetry 12/02/18 12/02/18 12/02/18 14:21 14:31 14:41 Pulse Rate 70 70 73 Pulse Rate [ From Monitor] Respiratory Rate Blood Pressure 91/67 98/71 98/71 O2 Sat by Pulse 98 96 89 Oximetry 12/02/18 12/02/18 12/02/18 14:51 15:01 15:11 Pulse Rate 71 70 70 Pulse Rate [ From Monitor] Respiratory Rate Blood Pressure 103/80 169/115 169/115 O2 Sat by Pulse 78 L 99 100 Oximetry 12/02/18 12/02/18 12/02/18 15:21 15:31 15:41 Pulse Rate 70 70 70 Pulse Rate [ From Monitor] Respiratory Rate Blood Pressure 200/161 200/161 200/161 O2 Sat by Pulse 100 90 93 Oximetry 12/02/18 12/02/18 12/02/18 15:51 16:00 16:01 Pulse Rate 70 70 Pulse Rate [ 70 From Monitor] Respiratory 16 Rate Blood Pressure 200/161 200/161 O2 Sat by Pulse 94 98 91 Oximetry 12/02/18 12/02/18 12/02/18 16:11 16:21 16:31 Pulse Rate 70 70 70 Pulse Rate [ From Monitor] Respiratory Rate Blood Pressure 200/161 200/161 200/161 O2 Sat by Pulse 92 92 97 Oximetry 12/02/18 12/02/18 12/02/18 16:41 16:51 17:01 Pulse Rate 71 Pulse Rate [ From Monitor] Respiratory 13 Rate Blood Pressure 200/161 200/161 200/161 O2 Sat by Pulse 87 100 96 Oximetry 12/02/18 12/02/18 12/02/18 17:11 17:21 17:31 Pulse Rate 70 70 70 Pulse Rate [ From Monitor] Respiratory 18 16 18 Rate Blood Pressure 200/161 117/81 118/81 O2 Sat by Pulse 94 86 83 L Oximetry 12/02/18 17:38 Pulse Rate 70 Pulse Rate [ From Monitor] Respiratory Rate Blood Pressure O2 Sat by Pulse Oximetry - Lab 12/02/18 04:45 12/02/18 04:45 Most recent lab results ABG pH 7.414 pH Units (7.350-7.450) 11/28/18 01:01 ABG pCO2 48.8 mm Hg 11/28/18 01:01 ABG pO2 65.7 mm Hg (80.0-90.0) L 11/28/18 01:01 ABG HCO3 30.5 mmol/L (20.0-26.0) H 11/28/18 01:01 ABG O2 Saturation 91.3 % (95.0-99.0) L 11/28/18 01:01 Calcium 8.0 mg/dL (8.4-10.2) L 12/02/18 04:45 Phosphorus 3.30 mg/dL (2.5-4.5) 11/30/18 07:18 Magnesium 3.20 mg/dL (1.7-2.3) H 11/30/18 07:18 117.4 mg/dL (0.1-20.0) H 11/29/18 13:40 53 mmol/L 11/29/18 13:40 120 mg/dL (5-11.8) H 11/29/18 13:40 Medications & Allergies - Medications Allergies/Adverse Reactions: Allergies lisinopril Adverse Reaction (Severe, Verified 12/17/13 19:00) SORE THROAT;PERSISTENT COUGH Home Medications: Home Medications Medication Instructions Recorded Confirmed Last Taken Type Aspirin [Aspirin BABY CHEW TAB] 81 mg PO QDAY 11/28/18 11/29/18 11/26/18 History Fluticasone [Flonase] 1 spray NS BID 11/28/18 11/28/18 Unknown History Furosemide [Lasix TAB] 40 mg PO BID 11/28/18 11/28/18 Unknown History Ibuprofen [Motrin] 600 mg PO Q6H PRN 11/28/18 11/28/18 Unknown History Montelukast [Singulair] 10 mg PO QPM 11/28/18 11/28/18 Unknown History Mycophenolate [Cellcept] 500 mg PO BID 11/28/18 11/28/18 Unknown History Mycophenolate [Cellcept] 500 mg PO BID PRN MDD 2 TABS 11/28/18 11/28/18 Unknown History Pantoprazole [Protonix] 40 mg PO QDAY 11/28/18 11/28/18 Unknown History Sacubitril/Valsartan [Entresto 1 each PO BID 11/28/18 11/28/18 Unknown History 49-51 mg] predniSONE [Deltasone] 50 mg PO QDAY 11/28/18 11/28/18 Unknown History raNITIdine HCl [Zantac] 150 mg PO BID 11/28/18 11/28/18 Unknown History Amitriptyline [Elavil] 25 mg PO HS 11/29/18 11/29/18 11/26/18 History Aspirin [Adult Aspirin] 81 mg PO ONCE 11/29/18 11/29/18 11/26/18 History Entresto 49-51 mg 49 mg PO BID 11/29/18 11/29/18 11/26/18 History HYDROcodone/APAP 5-325 5 mg PO Q6HR PRN 11/29/18 11/29/18 Unknown History Active Medications: Generic Name Dose Route Start Last Admin Trade Name Freq PRN Reason Stop Dose Admin Acetaminophen 650 mg 11/28/18 03:02 Tylenol PO Q4H PRN Pain MILD(1-3)/Fever >100.5/TURPIN Alprazolam 0.25 mg 11/30/18 01:09 11/30/18 01:21 Xanax PO 0.25 mg Q8H PRN Administration Anxiety Amiodarone HCl 200 mg 12/02/18 12:00 12/02/18 12:30 Cordarone PO 200 mg BID VIOLA Administration Amitriptyline HCl 25 mg 11/29/18 22:00 12/01/18 21:22 Elavil PO 25 mg HS VIOLA Administration Aspirin 81 mg 11/29/18 10:00 12/02/18 09:04 Baby Aspirin PO 81 mg QDAY VIOLA Administration Benzocaine 3 spray 12/02/18 13:00 Hurricaine One 20% Topical [place] MM 12/03/18 23:59 PREOP NR Dextrose 0 ml 11/28/18 02:19 D50w (25gm) Syringe IV PRN PRN Hypoglycemia Fluticasone Propionate 50 mcg 11/29/18 10:00 12/02/18 09:21 Flonase NS 50 mcg BID VIOLA Administration Hydralazine HCl 10 mg 11/28/18 03:41 Apresoline IV Q6HR PRN Blood Pressure Hydrophilic Ointment 1 applic 11/30/18 11:55 Vaseline Lip Therapy TP DIRECT PRN DRY LIPS Argatroban 250 mg/ Sodium 250 mls @ 3.682 mls/hr 11/29/18 13:00 12/01/18 02:17 Chloride IV 0.5 mcg/kg/min TITR VIOLA 3.682 mls/hr Administration Protocol 0.5 MCG/KG/MIN Sodium Chloride 1,000 mls @ 125 mls/hr 12/02/18 13:00 12/02/18 14:02 Nacl 0.9% 1000 Ml IV 125 mls/hr DIRECT VIOLA Administration Insulin Human Isoph/Insulin Regular 15 unit 12/02/18 17:00 12/02/18 17:18 Humulin 70/30 SUB-Q 15 unit BIDDIAB VIOLA Administration Insulin Human Lispro 0 unit 11/30/18 09:00 12/02/18 17:17 Humalog SUB-Q 4 unit ACHS VIOLA Administration Protocol Metoprolol Tartrate 25 mg 11/30/18 14:00 12/02/18 14:00 Lopressor PO 25 mg Q8HR VIOLA Administration Montelukast Sodium 10 mg 11/29/18 18:00 12/02/18 17:17 Singulair PO 10 mg QPM VIOLA Administration Morphine Sulfate 2 mg 11/28/18 03:02 12/02/18 03:58 Morphine IV 2 mg Q4H PRN Administration Pain, Moderate (4-6) Nitroglycerin 0.75 inch 11/29/18 14:00 12/02/18 14:02 Nitro-Bid 2% TP 0.75 inch QIDNTG VIOLA Administration Protocol Ondansetron HCl 4 mg 11/28/18 03:02 Zofran IV Q8H PRN Nausea And Vomiting Pantoprazole Sodium 40 mg 11/29/18 10:00 12/02/18 09:04 Protonix PO 40 mg QDAY VIOLA Administration Pentoxifylline 400 mg 11/29/18 13:00 12/02/18 09:04 Trental PO 400 mg Q12HR VIOLA Administration Prednisone 50 mg 11/29/18 10:00 12/02/18 09:08 Deltasone PO 50 mg QDAY VIOLA Administration Sodium Chloride 10 ml 11/28/18 10:00 12/02/18 09:09 Sodium Chloride Flush Syringe 10 Ml IV 10 ml BID VIOLA Administration Sodium Chloride 10 ml 11/28/18 03:02 Sodium Chloride Flush Syringe 10 Ml IV PRN PRN LINE FLUSH
--- NOTE | 2018-12-02 19:37 | Anesthesia Consultation ---
Anesthesia Consult and Med Hx Date of service: 12/02/18 - Airway Anesthetic Teeth Evaluation: Good ROM Head & Neck: Adequate Mental/Hyoid Distance: Inadequate Mallampati Class: Class III Intubation Access Assessment: Possibly Difficult - Pulmonary Exam CTA: Yes (diminished in b/l bases) - Cardiac Exam Cardiac Exam: RRR - Pre-Operative Health Status ASA Pre-Surgery Classification: ASA4 Proposed Anesthetic Plan: MAC - Pulmonary Hx Respiratory Symptoms: Yes (interstitial lung dz noted in chart though patient denies) COPD: No Home Oxygen Therapy: No Hx Sleep Apnea: Yes (compliant with CPAP) - Cardiovascular System Hx Hypertension: Yes Hx Coronary Artery Disease: No (-related cardiomyopathy; EF 20-25%) Hx Heart Attack/AMI: No Hx Percutaneous Transluminal Coronary Angioplasty (PTCA): No Hx Cardia Arrhythmia: Yes (v-tach this admission with appropriate shocks from AICD) Hx Pacemaker: Yes Hx Internal Defibrillator: Yes Hx Valvular Heart Disease: Yes (moderate MR) Hx Peripheral Vascular Disease: Yes (peripheral arterial occlusion now on argatroban gtt) - Central Nervous System Hx Seizures: No CVA: No Hx Psychiatric Problems: No - Endocrine Hx Renal Disease: Yes (EDGARDO) Hx Liver Disease: Yes (transaminitis this admission) Hx Insulin Dependent Diabetes: Yes (new diagnosis this admission; presented with HHS) Hx Thyroid Disease: No - Other Systems Hx Cancer: No (previously on steroids and cellcept for systemic sclerosis) Hx Obesity: Yes - Additional Comments Anesthesia Medical History Comments: No hx anesthetic complications.
[2018-12-02] MEDS: ELAVIL PO SCH (21:31)
[2018-12-03] MEDS: MORPHINE IV PRN ×3 (04:15→18:34)
[2018-12-03 04:30] LABS: Hematocrit 49.1 % (30.3-42.9); Hemoglobin 16.2 gm/dl (10.1-14.3); Mean Corpuscular HGB Conc 33 % (30-34); Mean Corpuscular Volume 85 fl (79-97); Platelet Count 179 K/mm3 (140-440); Red Blood Count 5.79 M/mm3 (3.65-5.03); Red Cell Distribution Width 19.2 % (13.2-15.2)
[2018-12-03] MEDS: NACL 0.9% 1000 ML 1,000 ML IV SCH (04:37)
[2018-12-03 05:01] LABS: Calcium 8.1 mg/dL (8.4-10.2)
[2018-12-03 05:08] LABS: Basophils % (Manual) 0 % (0.0-1.8); Eosinophils % (Manual) 0 % (0.0-4.3); Total Cells Counted 100
[2018-12-03 05:09] LABS: Anisocytosis Few; Macrocytosis Few; Platelet Estimate Consistent w Auto
[2018-12-03] MEDS: NITRO-BID 2% TP SCH ×2 (06:21→17:36)
[2018-12-03] MEDS: LOPRESSOR PO SCH ×4 (06:21→21:24)
--- NOTE | 2018-12-03 07:45 | Hem/Onc Progress Note ---
Assessment and Plan Peripheral extremities both lower and left upper extremity thromboembolic disease. This may be related to her generalized disease etiology versus rheumatology issue versus embolic phenomena. I had discussed with Cardiology, transthoracic echo has been done to see if there is any source of thrombus. If source is found, then oral anticoagulation is an option. At this time, the patient is on argatroban. There is a question if this is HIT. However, the platelet count is not low. HIT test has been ordered. 1. Elevated bilirubin. 2. Electrolyte imbalance. 3. Arterial thrombus, on anticoagulation. 4. Diabetic ketoacidosis. 5. Hypertension. 6. Ischemic cardiomyopathy with low ejection fraction. 7. Respiratory failure. 8. Sepsis, elevated troponin /CPK. I will follow the patient during inpatient stay and then in the clinic setting. The cause of thromboembolism is not clear. White cell count is high. There is a question if this has any relation. echo done RODNEY DUE 12/03 HIT pending had low BP high hct likely sec to sleep apnea pt had low BP - has low EF dark toes - with arterial thrombus once HIT neg - ? change argatroban to other forms or ct argatroban- ? Iv preferred as more procedures will be planned - Patient Problems (1) Ischemia Current Visit: Yes Status: Acute Subjective Date of service: 12/03/18 Principal diagnosis: thrombosis Interval history: leg cold - due RODNEY Objective - Exam Narrative Exam: Pain - hand and leg General appearance pain Performance status limited self care Eyes - no icterus ENT - no bleeding LNs cervical not palpable Neck - no LN Respiratory Normal Breath sounds - CTA CVS S1 S2 + Extremities cold toes and dark left hand finger General GI Soft Rectal deferred female - deferred Skin warm Musculoskeletal moving extremitites - dark foot and left hand finger Neurologically awake - Constitutional Vitals: Last Vital Signs Temp 97.8 F 12/03/18 04:00 Pulse 73 12/03/18 07:21 Resp 29 H 12/03/18 07:21 BP 109/69 12/03/18 07:21 Pulse Ox 99 12/03/18 07:21 - Labs Lab Results: Laboratory Results - last 24 hr 12/02/18 12/02/18 12/02/18 11:07 16:24 19:20 WBC RBC Hgb Hct MCV MCH MCHC RDW Plt Count Add Manual Diff Total Counted Seg Neuts % (Manual) Band Neutrophils % Lymphocytes % (Manual) Reactive Lymphs % (Man) Monocytes % (Manual) Eosinophils % (Manual) Basophils % (Manual) Metamyelocytes % Myelocytes % Promyelocytes % Blast Cells % Nucleated RBC % Seg Neutrophils # Man Band Neutrophils # Lymphocytes # (Manual) Abs React Lymphs (Man) Monocytes # (Manual) Eosinophils # (Manual) Basophils # (Manual) Metamyelocytes # Myelocytes # Promyelocytes # Blast Cells # WBC Morphology Hypersegmented Neuts Hyposegmented Neuts Hypogranular Neuts Smudge Cells Toxic Granulation Toxic Vacuolation Dohle Bodies Pelger-Huet Anomaly Rosalva Rods Platelet Estimate Clumped Platelets Plt Clumps, EDTA Large Platelets Giant Platelets Platelet Satelliting Plt Morphology Comment RBC Morphology Dimorphic RBCs Polychromasia Hypochromasia Poikilocytosis Anisocytosis Microcytosis Macrocytosis Spherocytes Pappenheimer Bodies Sickle Cells Target Cells Tear Drop Cells Ovalocytes Helmet Cells Garza-[place] Bodies Brandon Rings Claudio Cells Bite Cells Crenated Cell Elliptocytes Acanthocytes (Spur) Rouleaux Hemoglobin C Crystals Schistocytes Malaria parasites Dominic Bodies Hem Pathologist Commnt APTT 43.4 H Sodium Potassium Chloride Carbon Dioxide Anion Gap BUN Creatinine Estimated GFR BUN/Creatinine Ratio Glucose POC Glucose 249 H 250 H Calcium 12/02/18 12/03/18 12/03/18 21:44 04:15 04:15 WBC 20.8 H RBC 5.79 H Hgb 16.2 H Hct 49.1 H MCV 85 MCH 28 MCHC 33 RDW 19.2 H Plt Count 179 Add Manual Diff Complete Total Counted 100 Seg Neuts % (Manual) 90.0 H Band Neutrophils % 0 Lymphocytes % (Manual) 4.0 L Reactive Lymphs % (Man) 0 Monocytes % (Manual) 6.0 Eosinophils % (Manual) 0 Basophils % (Manual) 0 Metamyelocytes % 0 Myelocytes % 0 Promyelocytes % 0 Blast Cells % 0 Nucleated RBC % 6.0 H Seg Neutrophils # Man 18.7 H Band Neutrophils # 0.0 Lymphocytes # (Manual) 0.8 L Abs React Lymphs (Man) 0.0 Monocytes # (Manual) 1.2 H Eosinophils # (Manual) 0.0 Basophils # (Manual) 0.0 Metamyelocytes # 0.0 Myelocytes # 0.0 Promyelocytes # 0.0 Blast Cells # 0.0 WBC Morphology Not Reportable Hypersegmented Neuts Not Reportable Hyposegmented Neuts Not Reportable Hypogranular Neuts Not Reportable Smudge Cells Not Reportable Toxic Granulation Not Reportable Toxic Vacuolation Not Reportable Dohle Bodies Not Reportable Pelger-Huet Anomaly Not Reportable Rosalva Rods Not Reportable Platelet Estimate Consistent w auto Clumped Platelets Not Reportable Plt Clumps, EDTA Not Reportable Large Platelets Not Reportable Giant Platelets Not Reportable Platelet Satelliting Not Reportable Plt Morphology Comment Not Reportable RBC Morphology Not Reportable Dimorphic RBCs Not Reportable Polychromasia Not Reportable Hypochromasia Not Reportable Poikilocytosis Not Reportable Anisocytosis Few Microcytosis Not Reportable Macrocytosis Few Spherocytes Not Reportable Pappenheimer Bodies Not Reportable Sickle Cells Not Reportable Target Cells Not Reportable Tear Drop Cells Not Reportable Ovalocytes Not Reportable Helmet Cells Not Reportable Garza-[place] Bodies Not Reportable Brandon Rings Not Reportable [place] Cells Not Reportable Bite Cells Not Reportable Crenated Cell Not Reportable Elliptocytes Not Reportable Acanthocytes (Spur) Not Reportable Rouleaux Not Reportable Hemoglobin C Crystals Not Reportable Schistocytes Not Reportable Malaria parasites Not Reportable Dominic Bodies Not Reportable Hem Pathologist Commnt No APTT Sodium 137 Potassium 4.3 Chloride 101.6 Carbon Dioxide 25 Anion Gap 15 BUN 35 H Creatinine 1.9 H Estimated GFR 36 BUN/Creatinine Ratio 18 Glucose 231 H POC Glucose 315 H Calcium 8.1 L Medications & Allergies - Medications Allergies/Adverse Reactions: Allergies lisinopril Adverse Reaction (Severe, Verified 12/17/13 19:00) SORE THROAT;PERSISTENT COUGH Home Medications: Home Medications Medication Instructions Recorded Confirmed Last Taken Type Aspirin [Aspirin BABY CHEW TAB] 81 mg PO QDAY 11/28/18 11/29/18 11/26/18 History Fluticasone [Flonase] 1 spray NS BID 11/28/18 11/28/18 Unknown History Furosemide [Lasix TAB] 40 mg PO BID 11/28/18 11/28/18 Unknown History Ibuprofen [Motrin] 600 mg PO Q6H PRN 11/28/18 11/28/18 Unknown History Montelukast [Singulair] 10 mg PO QPM 11/28/18 11/28/18 Unknown History Mycophenolate [Cellcept] 500 mg PO BID 11/28/18 11/28/18 Unknown History Mycophenolate [Cellcept] 500 mg PO BID PRN MDD 2 TABS 11/28/18 11/28/18 Unknown History Pantoprazole [Protonix] 40 mg PO QDAY 11/28/18 11/28/18 Unknown History Sacubitril/Valsartan [Entresto 1 each PO BID 11/28/18 11/28/18 Unknown History 49-51 mg] predniSONE [Deltasone] 50 mg PO QDAY 11/28/18 11/28/18 Unknown History raNITIdine HCl [Zantac] 150 mg PO BID 11/28/18 11/28/18 Unknown History Amitriptyline [Elavil] 25 mg PO HS 11/29/18 11/29/18 11/26/18 History Aspirin [Adult Aspirin] 81 mg PO ONCE 11/29/18 11/29/18 11/26/18 History Entresto 49-51 mg 49 mg PO BID 11/29/18 11/29/18 11/26/18 History HYDROcodone/APAP 5-325 5 mg PO Q6HR PRN 11/29/18 11/29/18 Unknown History Active Medications: Generic Name Dose Route Start Last Admin Trade Name Freq PRN Reason Stop Dose Admin Acetaminophen 650 mg 11/28/18 03:02 Tylenol PO Q4H PRN Pain MILD(1-3)/Fever >100.5/TURPIN Alprazolam 0.25 mg 11/30/18 01:09 11/30/18 01:21 Xanax PO 0.25 mg Q8H PRN Administration Anxiety Amiodarone HCl 200 mg 12/02/18 12:00 12/02/18 21:31 Cordarone PO 200 mg BID VIOLA Administration Amitriptyline HCl 25 mg 11/29/18 22:00 12/02/18 21:31 Elavil PO 25 mg HS VIOLA Administration Aspirin 81 mg 11/29/18 10:00 12/02/18 09:04 Baby Aspirin PO 81 mg QDAY VIOLA Administration Benzocaine 3 spray 12/02/18 13:00 Hurricaine One 20% Topical [place] MM 12/03/18 23:59 PREOP NR Dextrose 0 ml 11/28/18 02:19 D50w (25gm) Syringe IV PRN PRN Hypoglycemia Fluticasone Propionate 50 mcg 11/29/18 10:00 12/02/18 21:30 Flonase NS 50 mcg BID VIOLA Administration Hydralazine HCl 10 mg 11/28/18 03:41 Apresoline IV Q6HR PRN Blood Pressure Hydrophilic Ointment 1 applic 11/30/18 11:55 Vaseline Lip Therapy TP DIRECT PRN DRY LIPS Argatroban 250 mg/ Sodium 250 mls @ 3.682 mls/hr 11/29/18 13:00 12/01/18 02:17 Chloride IV 0.5 mcg/kg/min TITR VIOLA 3.682 mls/hr Administration Protocol 0.5 MCG/KG/MIN Sodium Chloride 1,000 mls @ 125 mls/hr 12/02/18 13:00 12/03/18 04:37 Nacl 0.9% 1000 Ml IV 125 mls/hr DIRECT VIOLA Administration Insulin Human Isoph/Insulin Regular 15 unit 12/02/18 17:00 12/02/18 17:18 Humulin 70/30 SUB-Q 15 unit BIDDIAB VIOLA Administration Insulin Human Lispro 0 unit 11/30/18 09:00 12/02/18 21:56 Humalog SUB-Q 6 unit ACHS VIOLA Administration Protocol Metoprolol Tartrate 25 mg 11/30/18 14:00 12/03/18 06:25 Lopressor PO Not Given Q8HR VIOLA Montelukast Sodium 10 mg 11/29/18 18:00 12/02/18 17:17 Singulair PO 10 mg QPM VIOLA Administration Morphine Sulfate 2 mg 11/28/18 03:02 12/03/18 04:15 Morphine IV 2 mg Q4H PRN Administration Pain, Moderate (4-6) Nitroglycerin 0.75 inch 11/29/18 14:00 12/03/18 06:21 Nitro-Bid 2% TP 0.75 inch QIDNTG VIOLA Administration Protocol Ondansetron HCl 4 mg 11/28/18 03:02 Zofran IV Q8H PRN Nausea And Vomiting Pantoprazole Sodium 40 mg 11/29/18 10:00 12/02/18 09:04 Protonix PO 40 mg QDAY VIOLA Administration Pentoxifylline 400 mg 11/29/18 13:00 12/02/18 21:31 Trental PO 400 mg Q12HR VIOLA Administration Prednisone 50 mg 11/29/18 10:00 12/02/18 09:08 Deltasone PO 50 mg QDAY VIOLA Administration Sodium Chloride 10 ml 11/28/18 10:00 12/02/18 21:36 Sodium Chloride Flush Syringe 10 Ml IV 10 ml BID VIOLA Administration Sodium Chloride 10 ml 11/28/18 03:02 Sodium Chloride Flush Syringe 10 Ml IV PRN PRN LINE FLUSH
[2018-12-03] MEDS ORDERED: ZOFRAN ONE (08:59)
[2018-12-03] MEDS ORDERED: VERSED ONE (08:59)
[2018-12-03] MEDS ORDERED: AMIDATE IV ONE ×2 (08:59→09:45)
[2018-12-03] MEDS ORDERED: NEO SYNEPHRINE ONE (08:59)
[2018-12-03] MEDS ORDERED: XYLOCAINE MPF 2% ONE (08:59)
--- NOTE | 2018-12-03 10:57 | Progress Note ---
Assessment and Plan No vascular interventions are planned on this patient. Would recommend that the patient be started on a calcium channel ernesto when her blood pressure will tolerate it. Awaiting HIT panel results however, given only minimal drop in platelets would suspect this will be normal. Subjective Date of service: 12/03/18 Principal diagnosis: thrombosis Interval history: Patient drowsy at time of examination status post RODNEY this morning. Ischemic ch anges to the distal phalanx of her third digit on the left hand, first through fifth digits of her right foot with an ischemic area along the medial aspect of her right ankle, and demarcation and ischemia distal to the hindfoot of her left foot. Her blood pressure is improved somewhat with a systolic pressure of 104, examination. Patient has not been on pressors recently. Her RODNEY was negative f or thrombus. Aortic ultrasound negative for thrombus. Objective - Constitutional Vitals: Vital Signs - 12hr 12/02/18 12/02/18 12/02/18 23:00 23:11 23:21 Temperature Pulse Rate 70 70 71 Pulse Rate [ From Monitor] Respiratory 19 15 25 H Rate Blood Pressure 87/50 90/56 88/46 O2 Sat by Pulse 100 100 100 Oximetry 12/02/18 12/02/18 12/02/18 23:30 23:31 23:41 Temperature Pulse Rate 70 70 70 Pulse Rate [ From Monitor] Respiratory 21 24 24 Rate Blood Pressure 89/59 89/59 89/59 O2 Sat by Pulse 100 100 100 Oximetry 12/02/18 12/03/18 12/03/18 23:51 00:00 00:11 Temperature 97.6 F Pulse Rate 70 70 70 Pulse Rate [ 70 From Monitor] Respiratory 14 21 16 Rate Blood Pressure 94/58 99/63 99/63 O2 Sat by Pulse 100 100 100 Oximetry 12/03/18 12/03/18 12/03/18 00:21 00:30 00:41 Temperature Pulse Rate 70 70 70 Pulse Rate [ From Monitor] Respiratory 22 16 16 Rate Blood Pressure 92/61 98/55 92/61 O2 Sat by Pulse 100 100 100 Oximetry 12/03/18 12/03/18 12/03/18 00:51 01:00 01:11 Temperature Pulse Rate 70 70 70 Pulse Rate [ From Monitor] Respiratory 19 26 H 13 Rate Blood Pressure 97/58 102/59 102/59 O2 Sat by Pulse 100 100 100 Oximetry 0812/03/18 12/03/18 01:21 01:30 01:35 Temperature Pulse Rate 70 70 70 Pulse Rate [ From Monitor] Respiratory 14 15 24 Rate Blood Pressure 102/58 108/55 O2 Sat by Pulse 100 100 98 Oximetry 12/03/18 12/03/18 12/03/18 01:41 01:51 02:00 Temperature Pulse Rate 70 70 70 Pulse Rate [ 70 From Monitor] Respiratory 20 18 21 Rate Blood Pressure 102/58 106/64 103/66 O2 Sat by Pulse 98 99 98 Oximetry 12/03/18 12/03/18 12/03/18 02:11 02:21 02:30 Temperature Pulse Rate 70 70 70 Pulse Rate [ From Monitor] Respiratory 15 17 18 Rate Blood Pressure 106/64 102/72 108/67 O2 Sat by Pulse 100 100 100 Oximetry 12/03/18 12/03/18 12/03/18 02:41 02:51 03:00 Temperature Pulse Rate 70 70 70 Pulse Rate [ From Monitor] Respiratory 17 16 24 Rate Blood Pressure 108/67 105/69 107/75 O2 Sat by Pulse 100 100 100 Oximetry 12/03/18 12/03/18 12/03/18 03:11 03:21 03:30 Temperature Pulse Rate 70 70 70 Pulse Rate [ From Monitor] Respiratory 16 35 H 21 Rate Blood Pressure 107/75 107/71 107/68 O2 Sat by Pulse 100 99 100 Oximetry 12/03/18 12/03/18 12/03/18 03:41 03:51 04:00 Temperature 97.8 F Pulse Rate 70 70 Pulse Rate [ 70 From Monitor] Respiratory 12 14 16 Rate Blood Pressure 107/68 97/61 O2 Sat by Pulse 100 94 98 Oximetry 12/03/18 12/03/18 12/03/18 04:01 04:11 04:21 Temperature Pulse Rate 71 70 70 Pulse Rate [ From Monitor] Respiratory 23 23 32 H Rate Blood Pressure 97/61 107/68 85/64 O2 Sat by Pulse 98 97 98 Oximetry 12/03/18 12/03/18 12/03/18 04:30 04:41 04:51 Temperature Pulse Rate 70 70 70 Pulse Rate [ From Monitor] Respiratory 40 H 25 H 32 H Rate Blood Pressure 87/69 87/69 93/66 O2 Sat by Pulse 98 98 100 Oximetry 12/03/18 12/03/18 12/03/18 05:00 05:01 05:11 Temperature Pulse Rate 70 70 71 Pulse Rate [ From Monitor] Respiratory 35 H 24 Rate Blood Pressure 99/68 99/68 O2 Sat by Pulse 100 97 Oximetry 12/03/18 12/03/18 12/03/18 05:21 05:31 05:41 Temperature Pulse Rate 71 71 71 Pulse Rate [ From Monitor] Respiratory 30 H 32 H 36 H Rate Blood Pressure 102/71 107/61 107/61 O2 Sat by Pulse 100 99 95 Oximetry 12/03/18 12/03/18 12/03/18 05:51 06:00 06:11 Temperature Pulse Rate 71 72 72 Pulse Rate [ From Monitor] Respiratory 25 H 40 H 30 H Rate Blood Pressure 94/71 101/71 101/71 O2 Sat by Pulse 98 100 100 Oximetry 12/03/18 12/03/18 12/03/18 06:21 06:25 06:31 Temperature Pulse Rate 73 73 73 Pulse Rate [ From Monitor] Respiratory 33 H 33 H Rate Blood Pressure 105/73 105/73 108/70 O2 Sat by Pulse 93 98 Oximetry 12/03/18 12/03/18 12/03/18 06:41 06:51 07:00 Temperature Pulse Rate 73 74 73 Pulse Rate [ From Monitor] Respiratory 34 H 31 H 29 H Rate Blood Pressure 108/70 104/71 106/79 O2 Sat by Pulse 100 100 100 Oximetry 12/03/18 12/03/18 12/03/18 07:11 07:21 07:31 Temperature Pulse Rate 74 73 74 Pulse Rate [ From Monitor] Respiratory 31 H 29 H 32 H Rate Blood Pressure 106/79 109/69 101/65 O2 Sat by Pulse 98 99 99 Oximetry 12/03/18 12/03/18 12/03/18 07:40 07:50 08:00 Temperature Pulse Rate 75 74 75 Pulse Rate [ 73 From Monitor] Respiratory 19 26 H 27 H Rate Blood Pressure 101/65 110/62 110/81 O2 Sat by Pulse 100 99 100 Oximetry 12/03/18 12/03/18 12/03/18 08:11 08:21 08:30 Temperature Pulse Rate 75 76 77 Pulse Rate [ From Monitor] Respiratory Rate Blood Pressure 110/62 115/81 121/73 O2 Sat by Pulse 100 100 100 Oximetry 12/03/18 12/03/18 12/03/18 08:41 08:51 09:00 Temperature Pulse Rate 76 80 80 Pulse Rate [ From Monitor] Respiratory Rate Blood Pressure 121/73 115/82 116/80 O2 Sat by Pulse 100 100 100 Oximetry 12/03/18 12/03/18 12/03/18 09:11 09:21 09:31 Temperature Pulse Rate 77 76 75 Pulse Rate [ From Monitor] Respiratory Rate Blood Pressure 116/80 107/66 124/80 O2 Sat by Pulse 100 100 100 Oximetry 12/03/18 12/03/18 12/03/18 09:41 09:50 10:00 Temperature Pulse Rate 77 73 70 Pulse Rate [ From Monitor] Respiratory Rate Blood Pressure 101/66 97/63 88/61 O2 Sat by Pulse 100 100 100 Oximetry 12/03/18 12/03/18 10:11 10:20 Temperature Pulse Rate 70 70 Pulse Rate [ From Monitor] Respiratory Rate Blood Pressure 89/52 94/57 O2 Sat by Pulse 98 100 Oximetry General appearance: Present: other (drowsy postop) - Neck Neck: supple - Respiratory Respiratory effort: normal - Breasts Breasts: deferred - Cardiovascular Rhythm: regular Extremities: abnormal - Gastrointestinal General gastrointestinal: Present: deferred Rectal Exam: deferred - Genitourinary Female genitourinary: deferred - Labs CBC & Chem 7: 12/03/18 04:15 12/03/18 04:15 Labs: Abnormal lab results 12/02/18 12/02/18 12/02/18 Range/Units 11:07 16:24 19:20 WBC (4.5-11.0) K/mm3 RBC (3.65-5.03) M/mm3 Hgb (10.1-14.3) gm/dl Hct (30.3-42.9) % RDW (13.2-15.2) % Seg Neuts % (Manual) (40.0-70.0) % Lymphocytes % (Manual) (13.4-35.0) % Nucleated RBC % (0.0-0.9) % Seg Neutrophils # Man (1.8-7.7) K/mm3 Lymphocytes # (Manual) (1.2-5.4) K/mm3 Monocytes # (Manual) (0.0-0.8) K/mm3 APTT 43.4 H (24.2-36.6) Sec. BUN (7-17) mg/dL Creatinine (0.7-1.2) mg/dL Glucose (65-100) mg/dL POC Glucose 249 H 250 H (70-105) Calcium (8.4-10.2) mg/dL 12/02/18 12/03/18 12/03/18 Range/Units 21:44 04:15 04:15 WBC 20.8 H (4.5-11.0) K/mm3 RBC 5.79 H (3.65-5.03) M/mm3 Hgb 16.2 H (10.1-14.3) gm/dl Hct 49.1 H (30.3-42.9) % RDW 19.2 H (13.2-15.2) % Seg Neuts % (Manual) 90.0 H (40.0-70.0) % Lymphocytes % (Manual) 4.0 L (13.4-35.0) % Nucleated RBC % 6.0 H (0.0-0.9) % Seg Neutrophils # Man 18.7 H (1.8-7.7) K/mm3 Lymphocytes # (Manual) 0.8 L (1.2-5.4) K/mm3 Monocytes # (Manual) 1.2 H (0.0-0.8) K/mm3 APTT (24.2-36.6) Sec. BUN 35 H (7-17) mg/dL Creatinine 1.9 H (0.7-1.2) mg/dL Glucose 231 H (65-100) mg/dL POC Glucose 315 H (70-105) Calcium 8.1 L (8.4-10.2) mg/dL 12/03/18 12/03/18 Range/Units 07:35 08:01 WBC (4.5-11.0) K/mm3 RBC (3.65-5.03) M/mm3 Hgb (10.1-14.3) gm/dl Hct (30.3-42.9) % RDW (13.2-15.2) % Seg Neuts % (Manual) (40.0-70.0) % Lymphocytes % (Manual) (13.4-35.0) % Nucleated RBC % (0.0-0.9) % Seg Neutrophils # Man (1.8-7.7) K/mm3 Lymphocytes # (Manual) (1.2-5.4) K/mm3 Monocytes # (Manual) (0.0-0.8) K/mm3 APTT 53.6 H (24.2-36.6) Sec. BUN (7-17) mg/dL Creatinine (0.7-1.2) mg/dL Glucose (65-100) mg/dL POC Glucose 204 H (70-105) Calcium (8.4-10.2) mg/dL Medications & Allergies - Medications Allergies/Adverse Reactions: Allergies lisinopril Adverse Reaction (Severe, Verified 12/17/13 19:00) SORE THROAT;PERSISTENT COUGH Home Medications: Home Medications Medication Instructions Recorded Confirmed Last Taken Type Aspirin [Aspirin BABY CHEW TAB] 81 mg PO QDAY 11/28/18 11/29/18 11/26/18 History Fluticasone [Flonase] 1 spray NS BID 11/28/18 11/28/18 Unknown History Furosemide [Lasix TAB] 40 mg PO BID 11/28/18 11/28/18 Unknown History Ibuprofen [Motrin] 600 mg PO Q6H PRN 11/28/18 11/28/18 Unknown History Montelukast [Singulair] 10 mg PO QPM 11/28/18 11/28/18 Unknown History Mycophenolate [Cellcept] 500 mg PO BID 11/28/18 11/28/18 Unknown History Mycophenolate [Cellcept] 500 mg PO BID PRN MDD 2 TABS 11/28/18 11/28/18 Unknown History Pantoprazole [Protonix] 40 mg PO QDAY 11/28/18 11/28/18 Unknown History Sacubitril/Valsartan [Entresto 1 each PO BID 11/28/18 11/28/18 Unknown History 49-51 mg] predniSONE [Deltasone] 50 mg PO QDAY 11/28/18 11/28/18 Unknown History raNITIdine HCl [Zantac] 150 mg PO BID 11/28/18 11/28/18 Unknown History Amitriptyline [Elavil] 25 mg PO HS 11/29/18 11/29/18 11/26/18 History Aspirin [Adult Aspirin] 81 mg PO ONCE 11/29/18 11/29/18 11/26/18 History Entresto 49-51 mg 49 mg PO BID 11/29/18 11/29/18 11/26/18 History HYDROcodone/APAP 5-325 5 mg PO Q6HR PRN 11/29/18 11/29/18 Unknown History Active Medications: Generic Name Dose Route Start Last Admin Trade Name Terrence PRN Reason Stop Dose Admin Acetaminophen 650 mg 11/28/18 03:02 Tylenol PO Q4H PRN Pain MILD(1-3)/Fever >100.5/TURPIN Alprazolam 0.25 mg 11/30/18 01:09 11/30/18 01:21 Xanax PO 0.25 mg Q8H PRN Administration Anxiety Amiodarone HCl 200 mg 12/02/18 12:00 12/02/18 21:31 Cordarone PO 200 mg BID VIOLA Administration Amitriptyline HCl 25 mg 11/29/18 22:00 12/02/18 21:31 Elavil PO 25 mg HS VIOLA Administration Aspirin 81 mg 11/29/18 10:00 12/02/18 09:04 Baby Aspirin PO 81 mg QDAY VIOLA Administration Benzocaine 3 spray 12/02/18 13:00 12/03/18 10:18 Hurricaine One 20% Topical [place] MM 12/03/18 23:59 3 spray PREOP NR Administration Dextrose 0 ml 11/28/18 02:19 D50w (25gm) Syringe IV PRN PRN Hypoglycemia Fluticasone Propionate 50 mcg 11/29/18 10:00 12/02/18 21:30 Flonase NS 50 mcg BID VIOLA Administration Hydralazine HCl 10 mg 11/28/18 03:41 Apresoline IV Q6HR PRN Blood Pressure Hydrophilic Ointment 1 applic 11/30/18 11:55 Vaseline Lip Therapy TP DIRECT PRN DRY LIPS Argatroban 250 mg/ Sodium 250 mls @ 3.682 mls/hr 11/29/18 13:00 12/01/18 02:17 Chloride IV 0.5 mcg/kg/min TITR VIOLA 3.682 mls/hr Administration Protocol 0.5 MCG/KG/MIN Sodium Chloride 1,000 mls @ 125 mls/hr 12/02/18 13:00 12/03/18 04:37 Nacl 0.9% 1000 Ml IV 125 mls/hr DIRECT VIOLA Administration Insulin Human Isoph/Insulin Regular 15 unit 12/02/18 17:00 12/02/18 17:18 Humulin 70/30 SUB-Q 15 unit BIDDIAB VIOLA Administration Insulin Human Lispro 0 unit 11/30/18 09:00 12/02/18 21:56 Humalog SUB-Q 6 unit ACHS VIOLA Administration Protocol Metoprolol Tartrate 25 mg 11/30/18 14:00 12/03/18 06:25 Lopressor PO Not Given Q8HR VIOLA Montelukast Sodium 10 mg 11/29/18 18:00 12/02/18 17:17 Singulair PO 10 mg QPM VIOLA Administration Morphine Sulfate 2 mg 11/28/18 03:02 12/03/18 04:15 Morphine IV 2 mg Q4H PRN Administration Pain, Moderate (4-6) Nitroglycerin 0.75 inch 11/29/18 14:00 12/03/18 06:21 Nitro-Bid 2% TP 0.75 inch QIDNTG VIOLA Administration Protocol Ondansetron HCl 4 mg 11/28/18 03:02 Zofran IV Q8H PRN Nausea And Vomiting Pantoprazole Sodium 40 mg 11/29/18 10:00 12/02/18 09:04 Protonix PO 40 mg QDAY VIOLA Administration Pentoxifylline 400 mg 11/29/18 13:00 12/02/18 21:31 Trental PO 400 mg Q12HR VIOLA Administration Prednisone 50 mg 11/29/18 10:00 12/02/18 09:08 Deltasone PO 50 mg QDAY VIOLA Administration Sodium Chloride 10 ml 11/28/18 10:00 12/02/18 21:36 Sodium Chloride Flush Syringe 10 Ml IV 10 ml BID VIOLA Administration Sodium Chloride 10 ml 11/28/18 03:02 Sodium Chloride Flush Syringe 10 Ml IV PRN PRN LINE FLUSH
--- NOTE | 2018-12-03 11:51 | Progress Note ---
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 Decreased left ventricular systolic function 20-25%. RODNEY showing no cardioembolic source Plan: Continue current management Subjective Date of service: 12/03/18 Principal diagnosis: thrombosis Interval history: RODNEY performed today without complications Objective Vital Signs Temp Pulse Pulse Resp BP Pulse Ox 12/03/18 11:20 76 107/73 100 12/03/18 11:10 75 108/71 100 12/03/18 11:00 74 99/66 100 12/03/18 10:51 74 110/57 100 12/03/18 10:40 72 105/71 100 12/03/18 10:30 73 101/61 100 12/03/18 10:20 70 94/57 100 12/03/18 10:11 70 89/52 98 12/03/18 10:00 70 88/61 100 12/03/18 09:50 73 97/63 100 12/03/18 09:41 77 101/66 100 12/03/18 09:31 75 124/80 100 12/03/18 09:21 76 107/66 100 12/03/18 09:11 77 116/80 100 12/03/18 09:00 80 116/80 100 12/03/18 08:51 80 115/82 100 12/03/18 08:41 76 121/73 100 12/03/18 08:30 77 121/73 100 12/03/18 08:21 76 115/81 100 12/03/18 08:11 75 110/62 100 12/03/18 08:00 75 73 27 H 110/81 100 12/03/18 07:50 74 26 H 110/62 99 12/03/18 07:40 75 19 101/65 100 12/03/18 07:31 74 32 H 101/65 99 12/03/18 07:21 73 29 H 109/69 99 12/03/18 07:11 74 31 H 106/79 98 12/03/18 07:00 73 29 H 106/79 100 12/03/18 06:51 74 31 H 104/71 100 12/03/18 06:41 73 34 H 108/70 100 12/03/18 06:31 73 33 H 108/70 98 12/03/18 06:25 73 105/73 12/03/18 06:21 73 33 H 105/73 93 12/03/18 06:11 72 30 H 101/71 100 12/03/18 06:00 72 40 H 101/71 100 12/03/18 05:51 71 25 H 94/71 98 12/03/18 05:41 71 36 H 107/61 95 12/03/18 05:31 71 32 H 107/61 99 12/03/18 05:21 71 30 H 102/71 100 12/03/18 05:11 71 24 99/68 97 12/03/18 05:01 70 35 H 99/68 100 12/03/18 05:00 70 12/03/18 04:51 70 32 H 93/66 100 12/03/18 04:41 70 25 H 87/69 98 12/03/18 04:30 70 40 H 87/69 98 12/03/18 04:21 70 32 H 85/64 98 12/03/18 04:11 70 23 107/68 97 12/03/18 04:01 71 23 97/61 98 12/03/18 04:00 97.8 F 70 16 98 12/03/18 03:51 70 14 97/61 94 12/03/18 03:41 70 12 107/68 100 12/03/18 03:30 70 21 107/68 100 12/03/18 03:21 70 35 H 107/71 99 12/03/18 03:11 70 16 107/75 100 12/03/18 03:00 70 24 107/75 100 12/03/18 02:51 70 16 105/69 100 12/03/18 02:41 70 17 108/67 100 12/03/18 02:30 70 18 108/67 100 12/03/18 02:21 70 17 102/72 100 12/03/18 02:11 70 15 106/64 100 12/03/18 02:00 70 70 21 103/66 98 08/23/19 01:51 70 18 106/64 99 12/03/18 01:41 70 20 102/58 98 12/03/18 01:35 70 24 98 12/03/18 01:30 70 15 108/55 100 12/03/18 01:21 70 14 102/58 100 12/03/18 01:11 70 13 102/59 100 12/03/18 01:00 70 26 H 102/59 100 12/03/18 00:51 70 19 97/58 100 12/03/18 00:41 70 16 92/61 100 12/03/18 00:30 70 16 98/55 100 12/03/18 00:21 70 22 92/61 100 12/03/18 00:11 70 16 99/63 100 12/03/18 00:00 97.6 F 70 70 21 99/63 100 12/02/18 23:51 70 14 94/58 100 12/02/18 23:41 70 24 89/59 100 12/02/18 23:31 70 24 89/59 100 12/02/18 23:30 70 21 89/59 100 12/02/18 23:21 71 25 H 88/46 100 12/02/18 23:11 70 15 90/56 100 12/02/18 23:00 70 19 87/50 100 12/02/18 22:51 70 22 97/60 100 12/02/18 22:41 70 10 L 99/60 100 12/02/18 22:30 70 18 99/60 100 12/02/18 22:21 70 18 105/66 100 12/02/18 22:11 70 15 108/74 99 12/02/18 22:01 70 22 108/74 100 12/02/18 21:51 70 23 107/65 100 12/02/18 21:41 70 15 106/82 100 12/02/18 21:38 70 12/02/18 21:31 70 115/67 12/02/18 21:30 70 15 115/67 97 12/02/18 21:21 70 19 112/88 99 12/02/18 21:11 72 13 106/75 98 12/02/18 21:01 72 21 106/75 96 12/02/18 20:51 70 22 106/82 100 08/22/19 20:41 70 16 101/71 100 12/02/18 20:30 70 19 101/71 100 12/02/18 20:21 70 29 H 104/61 97 12/02/18 20:11 70 11 L 104/61 100 12/02/18 20:01 70 19 106/69 95 12/02/18 20:00 97.9 F 70 16 98 12/02/18 19:51 70 17 106/69 100 12/02/18 19:41 70 16 105/72 100 12/02/18 19:30 70 12 105/72 100 12/02/18 19:21 70 21 109/69 97 12/02/18 19:11 70 15 88/70 100 12/02/18 19:00 70 13 88/70 100 12/02/18 18:51 70 20 101/73 99 12/02/18 18:41 70 17 107/69 100 12/02/18 18:30 70 17 107/69 100 12/02/18 18:21 71 15 109/68 100 12/02/18 18:11 70 26 H 109/67 99 12/02/18 18:01 70 20 109/67 95 12/02/18 17:51 70 18 116/74 77 L 12/02/18 17:41 71 18 118/81 79 L 12/02/18 17:38 70 12/02/18 17:31 70 18 118/81 83 L 12/02/18 17:21 70 16 117/81 86 12/02/18 17:11 70 18 200/161 94 12/02/18 17:01 200/161 96 12/02/18 16:51 71 13 200/161 100 12/02/18 16:41 200/161 87 12/02/18 16:31 70 200/161 97 12/02/18 16:21 70 200/161 92 12/02/18 16:11 70 200/161 92 12/02/18 16:01 70 200/161 91 12/02/18 16:00 70 16 98 12/02/18 15:51 70 200/161 94 12/02/18 15:41 70 200/161 93 12/02/18 15:31 70 200/161 90 12/02/18 15:21 70 200/161 100 12/02/18 15:11 70 169/115 100 12/02/18 15:01 70 169/115 99 12/02/18 14:51 71 103/80 78 L 12/02/18 14:41 73 98/71 89 12/02/18 14:31 70 98/71 96 12/02/18 14:21 70 91/67 98 12/02/18 14:11 70 94/57 91 12/02/18 14:02 70 94/57 12/02/18 14:01 70 94/57 85 12/02/18 14:00 70 94/57 12/02/18 13:51 79/57 87 12/02/18 13:41 70 112/48 99 12/02/18 13:31 70 112/48 95 12/02/18 13:21 70 92/72 12/02/18 13:11 70 118/93 12/02/18 13:01 70 89/69 12/02/18 12:51 70 89/69 100 12/02/18 12:41 70 89/69 99 12/02/18 12:31 70 89/69 100 12/02/18 12:21 70 105/58 12/02/18 12:11 70 101/56 69 L 12/02/18 12:01 77 21 152/130 12/02/18 12:00 70 16 98 12/02/18 11:51 72 152/130 84 - Physical Examination General: Other (Chronically ill) HEENT: Positive: PERRL Neck: Positive: trachea midline Cardiac: Positive: Reg Rate and Rhythm Lungs: Positive: Decreased Breath Sounds Neuro: Positive: Grossly Intact Abdomen: Positive: Soft - Labs and Meds Coagulation 12/02/18 12/03/18 Range/Units 19:20 07:35 APTT 43.4 H 53.6 H (24.2-36.6) Sec. CBC 12/03/18 Range/Units 04:15 WBC 20.8 H (4.5-11.0) K/mm3 RBC 5.79 H (3.65-5.03) M/mm3 Hgb 16.2 H (10.1-14.3) gm/dl Hct 49.1 H (30.3-42.9) % Plt Count 179 (140-440) K/mm3 Comprehensive Metabolic Panel 12/03/18 Range/Units 04:15 Sodium 137 (137-145) mmol/L Potassium 4.3 (3.6-5.0) mmol/L Chloride 101.6 (98-107) mmol/L Carbon Dioxide 25 (22-30) mmol/L BUN 35 H (7-17) mg/dL Creatinine 1.9 H (0.7-1.2) mg/dL Glucose 231 H (65-100) mg/dL Calcium 8.1 L (8.4-10.2) mg/dL
--- NOTE | 2018-12-03 12:09 | Progress Note ---
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 1. Stopped fluids for now, will reassess. Repeat CR in am. 2. Wean FiO2 as tolerated 3. RODNEY done and negative. 4. Amio changed to oral 5. Reviewed Heme note 6. HR appears to be stable 7. If not hypotensive and no further runs of VTACH in the next 24 hours, need to consider transfer to floor. Spoke with [facility], will send vasculitis work as well but most to all of those labs will be send outs. Subjective Date of service: 12/03/18 Principal diagnosis: thrombosis Interval history: No acute events. Had RODNEY this am that was negative. BP improved with fluids and so did Cr. Has had 2 liters total. Objective Vital Signs - 12hr 12/03/18 12/03/18 12/03/18 00:11 00:21 00:30 Temperature Pulse Rate 70 70 70 Pulse Rate [ From Monitor] Respiratory 16 22 16 Rate Blood Pressure 99/63 92/61 98/55 O2 Sat by Pulse 100 100 100 Oximetry 12/03/18 12/03/18 12/03/18 00:41 00:51 01:00 Temperature Pulse Rate 70 70 70 Pulse Rate [ From Monitor] Respiratory 16 19 26 H Rate Blood Pressure 92/61 97/58 102/59 O2 Sat by Pulse 100 100 100 Oximetry 12/03/18 12/03/18 12/03/18 01:11 01:21 01:30 Temperature Pulse Rate 70 70 70 Pulse Rate [ From Monitor] Respiratory 13 14 15 Rate Blood Pressure 102/59 102/58 108/55 O2 Sat by Pulse 100 100 100 Oximetry 12/03/18 12/03/18 12/03/18 01:35 01:41 01:51 Temperature Pulse Rate 70 70 70 Pulse Rate [ From Monitor] Respiratory 24 20 18 Rate Blood Pressure 102/58 106/64 O2 Sat by Pulse 98 98 99 Oximetry 12/03/18 12/03/18 12/03/18 02:00 02:11 02:21 Temperature Pulse Rate 70 70 70 Pulse Rate [ 70 From Monitor] Respiratory 21 15 17 Rate Blood Pressure 103/66 106/64 102/72 O2 Sat by Pulse 98 100 100 Oximetry 12/03/18 12/03/18 12/03/18 02:30 02:41 02:51 Temperature Pulse Rate 70 70 70 Pulse Rate [ From Monitor] Respiratory 18 17 16 Rate Blood Pressure 108/67 108/67 105/69 O2 Sat by Pulse 100 100 100 Oximetry 12/03/18 12/03/18 12/03/18 03:00 03:11 03:21 Temperature Pulse Rate 70 70 70 Pulse Rate [ From Monitor] Respiratory 24 16 35 H Rate Blood Pressure 107/75 107/75 107/71 O2 Sat by Pulse 100 100 99 Oximetry 12/03/18 12/03/18 12/03/18 03:30 03:41 03:51 Temperature Pulse Rate 70 70 70 Pulse Rate [ From Monitor] Respiratory 21 12 14 Rate Blood Pressure 107/68 107/68 97/61 O2 Sat by Pulse 100 100 94 Oximetry 12/03/18 12/03/18 12/03/18 04:00 04:01 04:11 Temperature 97.8 F Pulse Rate 71 70 Pulse Rate [ 70 From Monitor] Respiratory 16 23 23 Rate Blood Pressure 97/61 107/68 O2 Sat by Pulse 98 98 97 Oximetry 12/03/18 12/03/18 12/03/18 04:21 04:30 04:41 Temperature Pulse Rate 70 70 70 Pulse Rate [ From Monitor] Respiratory 32 H 40 H 25 H Rate Blood Pressure 85/64 87/69 87/69 O2 Sat by Pulse 98 98 98 Oximetry 12/03/18 12/03/18 12/03/18 04:51 05:00 05:01 Temperature Pulse Rate 70 70 70 Pulse Rate [ From Monitor] Respiratory 32 H 35 H Rate Blood Pressure 93/66 99/68 O2 Sat by Pulse 100 100 Oximetry 12/03/18 12/03/18 12/03/18 05:11 05:21 05:31 Temperature Pulse Rate 71 71 71 Pulse Rate [ From Monitor] Respiratory 24 30 H 32 H Rate Blood Pressure 99/68 102/71 107/61 O2 Sat by Pulse 97 100 99 Oximetry 12/03/18 12/03/18 12/03/18 05:41 05:51 06:00 Temperature Pulse Rate 71 71 72 Pulse Rate [ From Monitor] Respiratory 36 H 25 H 40 H Rate Blood Pressure 107/61 94/71 101/71 O2 Sat by Pulse 95 98 100 Oximetry 12/03/18 12/03/18 12/03/18 06:11 06:21 06:25 Temperature Pulse Rate 72 73 73 Pulse Rate [ From Monitor] Respiratory 30 H 33 H Rate Blood Pressure 101/71 105/73 105/73 O2 Sat by Pulse 100 93 Oximetry 12/03/18 12/03/18 12/03/18 06:31 06:41 06:51 Temperature Pulse Rate 73 73 74 Pulse Rate [ From Monitor] Respiratory 33 H 34 H 31 H Rate Blood Pressure 108/70 108/70 104/71 O2 Sat by Pulse 98 100 100 Oximetry 12/03/18 12/03/18 12/03/18 07:00 07:11 07:21 Temperature Pulse Rate 73 74 73 Pulse Rate [ From Monitor] Respiratory 29 H 31 H 29 H Rate Blood Pressure 106/79 106/79 109/69 O2 Sat by Pulse 100 98 99 Oximetry 12/03/18 12/03/18 12/03/18 07:31 07:40 07:50 Temperature Pulse Rate 74 75 74 Pulse Rate [ From Monitor] Respiratory 32 H 19 26 H Rate Blood Pressure 101/65 101/65 110/62 O2 Sat by Pulse 99 100 99 Oximetry 12/03/18 12/03/18 12/03/18 08:00 08:11 08:21 Temperature Pulse Rate 75 75 76 Pulse Rate [ 73 From Monitor] Respiratory 27 H Rate Blood Pressure 110/81 110/62 115/81 O2 Sat by Pulse 100 100 100 Oximetry 12/03/18 12/03/18 12/03/18 08:30 08:41 08:51 Temperature Pulse Rate 77 76 80 Pulse Rate [ From Monitor] Respiratory Rate Blood Pressure 121/73 121/73 115/82 O2 Sat by Pulse 100 100 100 Oximetry 12/03/18 12/03/18 12/03/18 09:00 09:11 09:21 Temperature Pulse Rate 80 77 76 Pulse Rate [ From Monitor] Respiratory Rate Blood Pressure 116/80 116/80 107/66 O2 Sat by Pulse 100 100 100 Oximetry 12/03/18 12/03/18 12/03/18 09:31 09:41 09:50 Temperature Pulse Rate 75 77 73 Pulse Rate [ From Monitor] Respiratory Rate Blood Pressure 124/80 101/66 97/63 O2 Sat by Pulse 100 100 100 Oximetry 12/03/18 12/03/18 12/03/18 10:00 10:11 10:20 Temperature Pulse Rate 70 70 70 Pulse Rate [ From Monitor] Respiratory Rate Blood Pressure 88/61 89/52 94/57 O2 Sat by Pulse 100 98 100 Oximetry 12/03/18 12/03/18 12/03/18 10:30 10:40 10:51 Temperature Pulse Rate 73 72 74 Pulse Rate [ From Monitor] Respiratory Rate Blood Pressure 101/61 105/71 110/57 O2 Sat by Pulse 100 100 100 Oximetry 12/03/18 12/03/18 12/03/18 11:00 11:10 11:20 Temperature Pulse Rate 74 75 76 Pulse Rate [ From Monitor] Respiratory Rate Blood Pressure 99/66 108/71 107/73 O2 Sat by Pulse 100 100 100 Oximetry 12/03/18 12/03/18 12/03/18 11:30 11:40 11:50 Temperature Pulse Rate 75 77 77 Pulse Rate [ From Monitor] Respiratory Rate Blood Pressure 111/75 111/72 112/66 O2 Sat by Pulse 100 100 100 Oximetry 12/03/18 12:01 Temperature Pulse Rate 78 Pulse Rate [ From Monitor] Respiratory Rate Blood Pressure 116/79 O2 Sat by Pulse 100 Oximetry Constitutional: no acute distress, alert Eyes: non-icteric ENT: oropharynx moist Neck: supple Effort: normal Ascultation: Bilateral: clear, diminished breath sounds Cardiovascular: regular rate and rhythm Gastrointestinal: normoactive bowel sounds, non-tender, non-distended, other (obese) Extremities: other (discolration noted in LE and ischemic left middle finger) CBC and BMP: 12/03/18 04:15 12/03/18 04:15 ABG, PT/INR, D-dimer: ABG POC ABG pH 7.413 (7.35-7.45) 12/01/18 10:39 ABG pH 7.414 pH Units (7.350-7.450) 11/28/18 01:01 POC ABG pCO2 30.6 (35-45) L 12/01/18 10:39 ABG pCO2 48.8 mm Hg 11/28/18 01:01 POC ABG pO2 95 (80-105) 12/01/18 10:39 ABG pO2 65.7 mm Hg (80.0-90.0) L 11/28/18 01:01 POC ABG HCO3 19.5 (22-26 mml/L) 12/01/18 10:39 POC ABG Total CO2 20 (23-27mmol/L) 12/01/18 10:39 POC ABG O2 Sat 98 12/01/18 10:39 ABG O2 Saturation 91.3 % (95.0-99.0) L 11/28/18 01:01 PT/INR, D-dimer PT 15.6 Sec. (12.2-14.9) H 11/28/18 01:01 INR 1.27 (0.87-1.13) H 11/28/18 01:01 Abnormal lab findings: Abnormal Labs 11/27/18 11/28/18 11/28/18 23:40 01:01 01:01 WBC 15.1 H RBC 6.19 H Hgb 17.4 H Hct 54.6 H RDW 19.6 H Lymph % (Auto) 6.3 L Lymph # 0.9 L Mcpherson # 0.9 H Seg Neutrophils % 87.2 H Seg Neuts % (Manual) Lymphocytes % (Manual) Nucleated RBC % Seg Neutrophils # 13.2 H Seg Neutrophils # Man Lymphocytes # (Manual) Monocytes # (Manual) PT 15.6 H INR 1.27 H APTT POC ABG pCO2 ABG pO2 ABG HCO3 ABG O2 Saturation ABG Base Excess ABG Hemoglobin Oxyhemoglobin Sodium Potassium Chloride Carbon Dioxide BUN Creatinine Glucose POC Glucose > 500 H Hemoglobin A1c Lactic Acid Calcium Phosphorus Magnesium Total Bilirubin Direct Bilirubin AST ALT Alkaline Phosphatase Lactate Dehydrogenase Total Creatine Kinase Troponin T Total Protein Albumin Triglycerides Cholesterol HDL Cholesterol Urine Creatinine Urine Total Protein Salicylates Acetaminophen 11/28/18 11/28/18 11/28/18 01:01 01:01 01:01 WBC RBC Hgb Hct RDW Lymph % (Auto) Lymph # Mcpherson # Seg Neutrophils % Seg Neuts % (Manual) Lymphocytes % (Manual) Nucleated RBC % Seg Neutrophils # Seg Neutrophils # Man Lymphocytes # (Manual) Monocytes # (Manual) PT INR APTT POC ABG pCO2 ABG pO2 ABG HCO3 ABG O2 Saturation ABG Base Excess ABG Hemoglobin Oxyhemoglobin Sodium Potassium 5.9 H Chloride 92.9 L Carbon Dioxide BUN 20 H Creatinine 1.3 H Glucose 1088 H* POC Glucose Hemoglobin A1c Lactic Acid 3.50 H* Calcium Phosphorus Magnesium Total Bilirubin 2.40 H Direct Bilirubin 1.3 H AST ALT Alkaline Phosphatase 225 H Lactate Dehydrogenase Total Creatine Kinase Troponin T 0.030 H Total Protein Albumin 3.8 L Triglycerides 356 H Cholesterol 200 H HDL Cholesterol 39 L Urine Creatinine Urine Total Protein Salicylates < 0.3 L Acetaminophen 11/28/18 11/28/18 11/28/18 01:01 01:01 01:01 WBC RBC Hgb Hct RDW Lymph % (Auto) Lymph # Mcpherson # Seg Neutrophils % Seg Neuts % (Manual) Lymphocytes % (Manual) Nucleated RBC % Seg Neutrophils # Seg Neutrophils # Man Lymphocytes # (Manual) Monocytes # (Manual) PT INR APTT POC ABG pCO2 ABG pO2 65.7 L ABG HCO3 30.5 H ABG O2 Saturation 91.3 L ABG Base Excess 4.6 H ABG Hemoglobin 18.0 H Oxyhemoglobin 88.0 L Sodium Potassium Chloride Carbon Dioxide BUN Creatinine Glucose POC Glucose Hemoglobin A1c Lactic Acid Calcium Phosphorus Magnesium 3.70 H Total Bilirubin Direct Bilirubin AST ALT Alkaline Phosphatase Lactate Dehydrogenase Total Creatine Kinase 228 H Troponin T Total Protein Albumin Triglycerides Cholesterol HDL Cholesterol Urine Creatinine Urine Total Protein Salicylates Acetaminophen < 5.0 L 11/28/18 11/28/18 11/28/18 01:01 02:39 03:17 WBC RBC Hgb Hct RDW Lymph % (Auto) Lymph # Mcpherson # Seg Neutrophils % Seg Neuts % (Manual) Lymphocytes % (Manual) Nucleated RBC % Seg Neutrophils # Seg Neutrophils # Man Lymphocytes # (Manual) Monocytes # (Manual) PT INR APTT POC ABG pCO2 ABG pO2 ABG HCO3 ABG O2 Saturation ABG Base Excess ABG Hemoglobin Oxyhemoglobin Sodium Potassium Chloride Carbon Dioxide BUN Creatinine Glucose POC Glucose > 500 H Hemoglobin A1c 12.5 H Lactic Acid 3.00 H* Calcium Phosphorus Magnesium Total Bilirubin Direct Bilirubin AST ALT Alkaline Phosphatase Lactate Dehydrogenase Total Creatine Kinase Troponin T Total Protein Albumin Triglycerides Cholesterol HDL Cholesterol Urine Creatinine Urine Total Protein Salicylates Acetaminophen 11/28/18 11/28/18 11/28/18 03:17 03:17 03:35 WBC RBC Hgb Hct RDW Lymph % (Auto) Lymph # Mcpherson # Seg Neutrophils % Seg Neuts % (Manual) Lymphocytes % (Manual) Nucleated RBC % Seg Neutrophils # Seg Neutrophils # Man Lymphocytes # (Manual) Monocytes # (Manual) PT INR APTT POC ABG pCO2 ABG pO2 ABG HCO3 ABG O2 Saturation ABG Base Excess ABG Hemoglobin Oxyhemoglobin Sodium Potassium 6.1 H* Chloride 97.6 L Carbon Dioxide BUN 20 H Creatinine Glucose 927 H* POC Glucose > 500 H Hemoglobin A1c Lactic Acid Calcium Phosphorus 4.70 H Magnesium 3.70 H Total Bilirubin Direct Bilirubin AST ALT Alkaline Phosphatase Lactate Dehydrogenase Total Creatine Kinase Troponin T Total Protein Albumin Triglycerides Cholesterol HDL Cholesterol Urine Creatinine Urine Total Protein Salicylates Acetaminophen 11/28/18 11/28/18 11/28/18 04:43 05:35 06:30 WBC RBC Hgb Hct RDW Lymph % (Auto) Lymph # Mcpherson # Seg Neutrophils % Seg Neuts % (Manual) Lymphocytes % (Manual) Nucleated RBC % Seg Neutrophils # Seg Neutrophils # Man Lymphocytes # (Manual) Monocytes # (Manual) PT INR APTT POC ABG pCO2 ABG pO2 ABG HCO3 ABG O2 Saturation ABG Base Excess ABG Hemoglobin Oxyhemoglobin Sodium Potassium Chloride Carbon Dioxide BUN Creatinine Glucose POC Glucose > 500 H > 500 H > 500 H Hemoglobin A1c Lactic Acid Calcium Phosphorus Magnesium Total Bilirubin Direct Bilirubin AST ALT Alkaline Phosphatase Lactate Dehydrogenase Total Creatine Kinase Troponin T Total Protein Albumin Triglycerides Cholesterol HDL Cholesterol Urine Creatinine Urine Total Protein Salicylates Acetaminophen 11/28/18 11/28/18 11/28/18 07:50 07:50 07:50 WBC RBC Hgb Hct RDW Lymph % (Auto) Lymph # Mcpherson # Seg Neutrophils % Seg Neuts % (Manual) Lymphocytes % (Manual) Nucleated RBC % Seg Neutrophils # Seg Neutrophils # Man Lymphocytes # (Manual) Monocytes # (Manual) PT INR APTT POC ABG pCO2 ABG pO2 ABG HCO3 ABG O2 Saturation ABG Base Excess ABG Hemoglobin Oxyhemoglobin Sodium 156 H D Potassium 3.3 L D Chloride 112.8 H Carbon Dioxide BUN Creatinine Glucose 409 H POC Glucose Hemoglobin A1c Lactic Acid 6.20 H* Calcium Phosphorus Magnesium Total Bilirubin Direct Bilirubin AST ALT Alkaline Phosphatase Lactate Dehydrogenase Total Creatine Kinase Troponin T 0.030 H D Total Protein Albumin Triglycerides Cholesterol HDL Cholesterol Urine Creatinine Urine Total Protein Salicylates Acetaminophen 11/28/18 11/28/18 11/28/18 10:33 12:52 14:11 WBC RBC Hgb Hct RDW Lymph % (Auto) Lymph # Mcpherson # Seg Neutrophils % Seg Neuts % (Manual) Lymphocytes % (Manual) Nucleated RBC % Seg Neutrophils # Seg Neutrophils # Man Lymphocytes # (Manual) Monocytes # (Manual) PT INR APTT POC ABG pCO2 ABG pO2 ABG HCO3 ABG O2 Saturation ABG Base Excess ABG Hemoglobin Oxyhemoglobin Sodium Potassium Chloride Carbon Dioxide BUN Creatinine Glucose POC Glucose 411 H 204 H 119 H Hemoglobin A1c Lactic Acid Calcium Phosphorus Magnesium Total Bilirubin Direct Bilirubin AST ALT Alkaline Phosphatase Lactate Dehydrogenase Total Creatine Kinase Troponin T Total Protein Albumin Triglycerides Cholesterol HDL Cholesterol Urine Creatinine Urine Total Protein Salicylates Acetaminophen 11/28/18 11/28/18 11/28/18 14:15 15:14 15:14 WBC RBC Hgb Hct RDW Lymph % (Auto) Lymph # Mcpherson # Seg Neutrophils % Seg Neuts % (Manual) Lymphocytes % (Manual) Nucleated RBC % Seg Neutrophils # Seg Neutrophils # Man Lymphocytes # (Manual) Monocytes # (Manual) PT INR APTT POC ABG pCO2 ABG pO2 ABG HCO3 ABG O2 Saturation ABG Base Excess ABG Hemoglobin Oxyhemoglobin Sodium 151 H Potassium Chloride 112.4 H Carbon Dioxide 21 L D BUN Creatinine Glucose 167 H POC Glucose Hemoglobin A1c Lactic Acid 4.80 H* 5.00 H* Calcium Phosphorus Magnesium Total Bilirubin Direct Bilirubin AST ALT Alkaline Phosphatase Lactate Dehydrogenase Total Creatine Kinase Troponin T Total Protein Albumin Triglycerides Cholesterol HDL Cholesterol Urine Creatinine Urine Total Protein Salicylates Acetaminophen 11/28/18 11/28/18 11/28/18 15:22 16:22 17:11 WBC RBC Hgb Hct RDW Lymph % (Auto) Lymph # Mcpherson # Seg Neutrophils % Seg Neuts % (Manual) Lymphocytes % (Manual) Nucleated RBC % Seg Neutrophils # Seg Neutrophils # Man Lymphocytes # (Manual) Monocytes # (Manual) PT INR APTT POC ABG pCO2 ABG pO2 ABG HCO3 ABG O2 Saturation ABG Base Excess ABG Hemoglobin Oxyhemoglobin Sodium Potassium Chloride Carbon Dioxide BUN Creatinine Glucose POC Glucose 114 H 120 H 183 H Hemoglobin A1c Lactic Acid Calcium Phosphorus Magnesium Total Bilirubin Direct Bilirubin AST ALT Alkaline Phosphatase Lactate Dehydrogenase Total Creatine Kinase Troponin T Total Protein Albumin Triglycerides Cholesterol HDL Cholesterol Urine Creatinine Urine Total Protein Salicylates Acetaminophen 11/28/18 11/28/18 11/28/18 17:17 18:18 19:26 WBC RBC Hgb Hct RDW Lymph % (Auto) Lymph # Mcpherson # Seg Neutrophils % Seg Neuts % (Manual) Lymphocytes % (Manual) Nucleated RBC % Seg Neutrophils # Seg Neutrophils # Man Lymphocytes # (Manual) Monocytes # (Manual) PT INR APTT POC ABG pCO2 ABG pO2 ABG HCO3 ABG O2 Saturation ABG Base Excess ABG Hemoglobin Oxyhemoglobin Sodium 151 H Potassium Chloride 112.9 H Carbon Dioxide 21 L BUN Creatinine Glucose 265 H POC Glucose 269 H 243 H Hemoglobin A1c Lactic Acid Calcium Phosphorus Magnesium Total Bilirubin Direct Bilirubin AST ALT Alkaline Phosphatase Lactate Dehydrogenase Total Creatine Kinase Troponin T Total Protein Albumin Triglycerides Cholesterol HDL Cholesterol Urine Creatinine Urine Total Protein Salicylates Acetaminophen 11/28/18 11/28/18 11/29/18 20:45 21:44 05:55 WBC 29.7 H RBC 5.93 H Hgb 16.6 H Hct 51.0 H RDW 19.7 H Lymph % (Auto) Lymph # Mcpherson # Seg Neutrophils % Seg Neuts % (Manual) 93.0 H Lymphocytes % (Manual) 4.0 L Nucleated RBC % Seg Neutrophils # Seg Neutrophils # Man 27.6 H Lymphocytes # (Manual) Monocytes # (Manual) 0.9 H PT INR APTT POC ABG pCO2 ABG pO2 ABG HCO3 ABG O2 Saturation ABG Base Excess ABG Hemoglobin Oxyhemoglobin Sodium Potassium Chloride Carbon Dioxide BUN Creatinine Glucose POC Glucose 177 H 124 H Hemoglobin A1c Lactic Acid Calcium Phosphorus Magnesium Total Bilirubin Direct Bilirubin AST ALT Alkaline Phosphatase Lactate Dehydrogenase Total Creatine Kinase Troponin T Total Protein Albumin Triglycerides Cholesterol HDL Cholesterol Urine Creatinine Urine Total Protein Salicylates Acetaminophen 11/29/18 11/29/18 11/29/18 06:42 07:36 09:08 WBC RBC Hgb Hct RDW Lymph % (Auto) Lymph # Mcpherson # Seg Neutrophils % Seg Neuts % (Manual) Lymphocytes % (Manual) Nucleated RBC % Seg Neutrophils # Seg Neutrophils # Man Lymphocytes # (Manual) Monocytes # (Manual) PT INR APTT POC ABG pCO2 ABG pO2 ABG HCO3 ABG O2 Saturation ABG Base Excess ABG Hemoglobin Oxyhemoglobin Sodium 152 H Potassium 5.4 H Chloride 110.6 H Carbon Dioxide 20 L BUN 20 H Creatinine 1.6 H Glucose 237 H POC Glucose 118 H 146 H Hemoglobin A1c Lactic Acid Calcium Phosphorus Magnesium Total Bilirubin 3.80 H Direct Bilirubin AST 351 H ALT 123 H Alkaline Phosphatase 222 H Lactate Dehydrogenase Total Creatine Kinase Troponin T Total Protein Albumin 3.5 L Triglycerides Cholesterol HDL Cholesterol Urine Creatinine Urine Total Protein Salicylates Acetaminophen 11/29/18 11/29/18 11/29/18 11:00 11:44 13:40 WBC RBC Hgb Hct RDW Lymph % (Auto) Lymph # Mcpherson # Seg Neutrophils % Seg Neuts % (Manual) Lymphocytes % (Manual) Nucleated RBC % Seg Neutrophils # Seg Neutrophils # Man Lymphocytes # (Manual) Monocytes # (Manual) PT INR APTT POC ABG pCO2 ABG pO2 ABG HCO3 ABG O2 Saturation ABG Base Excess ABG Hemoglobin Oxyhemoglobin Sodium 155 H Potassium 5.8 H Chloride 110.1 H Carbon Dioxide 15 L BUN 21 H Creatinine 1.4 H Glucose 204 H POC Glucose 203 H Hemoglobin A1c Lactic Acid Calcium Phosphorus Magnesium Total Bilirubin 3.70 H Direct Bilirubin AST 361 H ALT 125 H Alkaline Phosphatase 227 H Lactate Dehydrogenase Total Creatine Kinase Troponin T Total Protein Albumin 3.4 L Triglycerides Cholesterol HDL Cholesterol Urine Creatinine 117.4 H Urine Total Protein 120 H Salicylates Acetaminophen 11/29/18 11/29/18 11/29/18 16:29 16:46 16:46 WBC RBC Hgb Hct RDW Lymph % (Auto) Lymph # Mcpherson # Seg Neutrophils % Seg Neuts % (Manual) Lymphocytes % (Manual) Nucleated RBC % Seg Neutrophils # Seg Neutrophils # Man Lymphocytes # (Manual) Monocytes # (Manual) PT INR APTT 49.5 H POC ABG pCO2 ABG pO2 ABG HCO3 ABG O2 Saturation ABG Base Excess ABG Hemoglobin Oxyhemoglobin Sodium 148 H Potassium Chloride 108.3 H Carbon Dioxide 21 L BUN 22 H Creatinine 1.4 H Glucose 152 H POC Glucose 158 H Hemoglobin A1c Lactic Acid Calcium Phosphorus Magnesium Total Bilirubin Direct Bilirubin AST ALT Alkaline Phosphatase Lactate Dehydrogenase Total Creatine Kinase Troponin T Total Protein Albumin Triglycerides Cholesterol HDL Cholesterol Urine Creatinine Urine Total Protein Salicylates Acetaminophen 11/29/18 11/29/18 11/30/18 22:02 23:58 05:51 WBC RBC Hgb Hct RDW Lymph % (Auto) Lymph # Mcpherson # Seg Neutrophils % Seg Neuts % (Manual) Lymphocytes % (Manual) Nucleated RBC % Seg Neutrophils # Seg Neutrophils # Man Lymphocytes # (Manual) Monocytes # (Manual) PT INR APTT 63.2 H* POC ABG pCO2 ABG pO2 ABG HCO3 ABG O2 Saturation ABG Base Excess ABG Hemoglobin Oxyhemoglobin Sodium Potassium Chloride Carbon Dioxide BUN Creatinine Glucose POC Glucose 183 H 156 H Hemoglobin A1c Lactic Acid Calcium Phosphorus Magnesium Total Bilirubin Direct Bilirubin AST ALT Alkaline Phosphatase Lactate Dehydrogenase Total Creatine Kinase Troponin T Total Protein Albumin Triglycerides Cholesterol HDL Cholesterol Urine Creatinine Urine Total Protein Salicylates Acetaminophen 11/30/18 11/30/18 11/30/18 07:18 07:58 09:40 WBC 28.8 H RBC 6.58 H Hgb 18.2 H Hct 57.2 H* D RDW 19.3 H Lymph % (Auto) Lymph # Mcpherson # Seg Neutrophils % Seg Neuts % (Manual) Lymphocytes % (Manual) Nucleated RBC % Seg Neutrophils # Seg Neutrophils # Man Lymphocytes # (Manual) Monocytes # (Manual) PT INR APTT POC ABG pCO2 ABG pO2 ABG HCO3 ABG O2 Saturation ABG Base Excess ABG Hemoglobin Oxyhemoglobin Sodium 150 H Potassium Chloride 110.3 H Carbon Dioxide 20 L BUN Creatinine Glucose 149 H POC Glucose 190 H Hemoglobin A1c Lactic Acid Calcium Phosphorus Magnesium 3.20 H Total Bilirubin 3.70 H Direct Bilirubin AST 480 H ALT 213 H Alkaline Phosphatase 258 H Lactate Dehydrogenase Total Creatine Kinase Troponin T Total Protein Albumin 3.4 L Triglycerides Cholesterol HDL Cholesterol Urine Creatinine Urine Total Protein Salicylates Acetaminophen 11/30/18 11/30/18 11/30/18 11:24 12:17 16:22 WBC RBC Hgb Hct RDW Lymph % (Auto) Lymph # Mcpherson # Seg Neutrophils % Seg Neuts % (Manual) Lymphocytes % (Manual) Nucleated RBC % Seg Neutrophils # Seg Neutrophils # Man Lymphocytes # (Manual) Monocytes # (Manual) PT INR APTT 62.1 H* POC ABG pCO2 ABG pO2 ABG HCO3 ABG O2 Saturation ABG Base Excess ABG Hemoglobin Oxyhemoglobin Sodium Potassium Chloride Carbon Dioxide BUN Creatinine Glucose POC Glucose 242 H 165 H Hemoglobin A1c Lactic Acid Calcium Phosphorus Magnesium Total Bilirubin Direct Bilirubin AST ALT Alkaline Phosphatase Lactate Dehydrogenase Total Creatine Kinase Troponin T Total Protein Albumin Triglycerides Cholesterol HDL Cholesterol Urine Creatinine Urine Total Protein Salicylates Acetaminophen 11/30/18 12/01/18 12/01/18 21:32 05:32 05:32 WBC 24.7 H RBC 6.30 H Hgb 17.8 H Hct 54.2 H RDW 19.2 H Lymph % (Auto) Lymph # Mcpherson # Seg Neutrophils % Seg Neuts % (Manual) 87.0 H Lymphocytes % (Manual) 10.0 L Nucleated RBC % 2.0 H Seg Neutrophils # Seg Neutrophils # Man 21.5 H Lymphocytes # (Manual) Monocytes # (Manual) PT INR APTT 50.0 H POC ABG pCO2 ABG pO2 ABG HCO3 ABG O2 Saturation ABG Base Excess ABG Hemoglobin Oxyhemoglobin Sodium Potassium Chloride Carbon Dioxide BUN Creatinine Glucose POC Glucose 146 H Hemoglobin A1c Lactic Acid Calcium Phosphorus Magnesium Total Bilirubin Direct Bilirubin AST ALT Alkaline Phosphatase Lactate Dehydrogenase Total Creatine Kinase Troponin T Total Protein Albumin Triglycerides Cholesterol HDL Cholesterol Urine Creatinine Urine Total Protein Salicylates Acetaminophen 12/01/18 12/01/18 12/01/18 07:45 10:39 11:35 WBC RBC Hgb Hct RDW Lymph % (Auto) Lymph # Mcpherson # Seg Neutrophils % Seg Neuts % (Manual) Lymphocytes % (Manual) Nucleated RBC % Seg Neutrophils # Seg Neutrophils # Man Lymphocytes # (Manual) Monocytes # (Manual) PT INR APTT POC ABG pCO2 30.6 L ABG pO2 ABG HCO3 ABG O2 Saturation ABG Base Excess ABG Hemoglobin Oxyhemoglobin Sodium Potassium Chloride Carbon Dioxide BUN Creatinine Glucose POC Glucose 179 H 219 H Hemoglobin A1c Lactic Acid Calcium Phosphorus Magnesium Total Bilirubin Direct Bilirubin AST ALT Alkaline Phosphatase Lactate Dehydrogenase Total Creatine Kinase Troponin T Total Protein Albumin Triglycerides Cholesterol HDL Cholesterol Urine Creatinine Urine Total Protein Salicylates Acetaminophen 12/01/18 12/01/18 12/01/18 13:45 13:45 16:33 WBC RBC Hgb Hct RDW Lymph % (Auto) Lymph # Mcpherson # Seg Neutrophils % Seg Neuts % (Manual) Lymphocytes % (Manual) Nucleated RBC % Seg Neutrophils # Seg Neutrophils # Man Lymphocytes # (Manual) Monocytes # (Manual) PT INR APTT POC ABG pCO2 ABG pO2 ABG HCO3 ABG O2 Saturation ABG Base Excess ABG Hemoglobin Oxyhemoglobin Sodium 136 L D Potassium Chloride Carbon Dioxide BUN 29 H Creatinine 1.9 H D Glucose 360 H POC Glucose 166 H Hemoglobin A1c Lactic Acid Calcium 8.0 L Phosphorus Magnesium Total Bilirubin Direct Bilirubin AST ALT Alkaline Phosphatase Lactate Dehydrogenase 976 H Total Creatine Kinase Troponin T Total Protein Albumin Triglycerides Cholesterol HDL Cholesterol Urine Creatinine Urine Total Protein Salicylates Acetaminophen 12/01/18 12/01/18 12/02/18 17:40 20:04 04:45 WBC RBC Hgb Hct RDW Lymph % (Auto) Lymph # Mcpherson # Seg Neutrophils % Seg Neuts % (Manual) Lymphocytes % (Manual) Nucleated RBC % Seg Neutrophils # Seg Neutrophils # Man Lymphocytes # (Manual) Monocytes # (Manual) PT INR APTT 68.9 H* POC ABG pCO2 ABG pO2 ABG HCO3 ABG O2 Saturation ABG Base Excess ABG Hemoglobin Oxyhemoglobin Sodium 135 L Potassium Chloride 96.8 L Carbon Dioxide BUN 33 H Creatinine 2.0 H Glucose 302 H POC Glucose 215 H Hemoglobin A1c Lactic Acid Calcium 8.0 L Phosphorus Magnesium Total Bilirubin 2.00 H Direct Bilirubin AST 156 H ALT 183 H Alkaline Phosphatase 225 H Lactate Dehydrogenase Total Creatine Kinase Troponin T Total Protein 5.9 L D Albumin 2.6 L Triglycerides Cholesterol HDL Cholesterol Urine Creatinine Urine Total Protein Salicylates Acetaminophen 12/02/18 12/02/18 12/02/18 04:45 05:45 07:00 WBC 23.8 H RBC 6.28 H Hgb 17.5 H Hct 53.9 H RDW 19.3 H Lymph % (Auto) Lymph # [place] # Seg Neutrophils % Seg Neuts % (Manual) 83.0 H Lymphocytes % (Manual) 12.0 L Nucleated RBC % Seg Neutrophils # Seg Neutrophils # Man 19.8 H Lymphocytes # (Manual) Monocytes # (Manual) 1.2 H PT INR APTT 51.5 H POC ABG pCO2 ABG pO2 ABG HCO3 ABG O2 Saturation ABG Base Excess ABG Hemoglobin Oxyhemoglobin Sodium Potassium Chloride Carbon Dioxide BUN Creatinine Glucose POC Glucose 336 H Hemoglobin A1c Lactic Acid Calcium Phosphorus Magnesium Total Bilirubin Direct Bilirubin AST ALT Alkaline Phosphatase Lactate Dehydrogenase Total Creatine Kinase Troponin T Total Protein Albumin Triglycerides Cholesterol HDL Cholesterol Urine Creatinine Urine Total Protein Salicylates Acetaminophen 12/02/18 12/02/18 12/02/18 07:30 11:07 16:24 WBC RBC Hgb Hct RDW Lymph % (Auto) Lymph # [place] # Seg Neutrophils % Seg Neuts % (Manual) Lymphocytes % (Manual) Nucleated RBC % Seg Neutrophils # Seg Neutrophils # Man Lymphocytes # (Manual) Monocytes # (Manual) PT INR APTT POC ABG pCO2 ABG pO2 ABG HCO3 ABG O2 Saturation ABG Base Excess ABG Hemoglobin Oxyhemoglobin Sodium Potassium Chloride Carbon Dioxide BUN Creatinine Glucose POC Glucose 143 H 249 H 250 H Hemoglobin A1c Lactic Acid Calcium Phosphorus Magnesium Total Bilirubin Direct Bilirubin AST ALT Alkaline Phosphatase Lactate Dehydrogenase Total Creatine Kinase Troponin T Total Protein Albumin Triglycerides Cholesterol HDL Cholesterol Urine Creatinine Urine Total Protein Salicylates Acetaminophen 12/02/18 12/02/18 12/03/18 19:20 21:44 04:15 WBC 20.8 H RBC 5.79 H Hgb 16.2 H Hct 49.1 H RDW 19.2 H Lymph % (Auto) Lymph # [place] # Seg Neutrophils % Seg Neuts % (Manual) 90.0 H Lymphocytes % (Manual) 4.0 L Nucleated RBC % 6.0 H Seg Neutrophils # Seg Neutrophils # Man 18.7 H Lymphocytes # (Manual) 0.8 L Monocytes # (Manual) 1.2 H PT INR APTT 43.4 H POC ABG pCO2 ABG pO2 ABG HCO3 ABG O2 Saturation ABG Base Excess ABG Hemoglobin Oxyhemoglobin Sodium Potassium Chloride Carbon Dioxide BUN Creatinine Glucose POC Glucose 315 H Hemoglobin A1c Lactic Acid Calcium Phosphorus Magnesium Total Bilirubin Direct Bilirubin AST ALT Alkaline Phosphatase Lactate Dehydrogenase Total Creatine Kinase Troponin T Total Protein Albumin Triglycerides Cholesterol HDL Cholesterol Urine Creatinine Urine Total Protein Salicylates Acetaminophen 12/03/18 12/03/18 12/03/18 04:15 07:35 07:48 WBC RBC Hgb Hct RDW Lymph % (Auto) Lymph # [place] # Seg Neutrophils % Seg Neuts % (Manual) Lymphocytes % (Manual) Nucleated RBC % Seg Neutrophils # Seg Neutrophils # Man Lymphocytes # (Manual) Monocytes # (Manual) PT INR APTT 53.6 H POC ABG pCO2 ABG pO2 ABG HCO3 ABG O2 Saturation ABG Base Excess ABG Hemoglobin Oxyhemoglobin Sodium Potassium Chloride Carbon Dioxide BUN 35 H Creatinine 1.9 H Glucose 231 H POC Glucose 179 H Hemoglobin A1c Lactic Acid Calcium 8.1 L Phosphorus Magnesium Total Bilirubin Direct Bilirubin AST ALT Alkaline Phosphatase Lactate Dehydrogenase Total Creatine Kinase Troponin T Total Protein Albumin Triglycerides Cholesterol HDL Cholesterol Urine Creatinine Urine Total Protein Salicylates Acetaminophen 12/03/18 08:01 WBC RBC Hgb Hct RDW Lymph % (Auto) Lymph # [place] # Seg Neutrophils % Seg Neuts % (Manual) Lymphocytes % (Manual) Nucleated RBC % Seg Neutrophils # Seg Neutrophils # Man Lymphocytes # (Manual) Monocytes # (Manual) PT INR APTT POC ABG pCO2 ABG pO2 ABG HCO3 ABG O2 Saturation ABG Base Excess ABG Hemoglobin Oxyhemoglobin Sodium Potassium Chloride Carbon Dioxide BUN Creatinine Glucose POC Glucose 204 H Hemoglobin A1c Lactic Acid Calcium Phosphorus Magnesium Total Bilirubin Direct Bilirubin AST ALT Alkaline Phosphatase Lactate Dehydrogenase Total Creatine Kinase Troponin T Total Protein Albumin Triglycerides Cholesterol HDL Cholesterol Urine Creatinine Urine Total Protein Salicylates Acetaminophen
[2018-12-03] MEDS: ENTRESTO 49-51 MG PO SCH ×2 (12:50→21:23)
[2018-12-03] MEDS: BABY ASPIRIN PO SCH (12:50)
[2018-12-03] MEDS: DELTASONE PO SCH (12:50)
[2018-12-03] MEDS: CORDARONE PO SCH ×2 (12:50→21:24)
[2018-12-03] MEDS: TRENTAL PO SCH ×2 (12:51→21:24)
[2018-12-03] MEDS: PROTONIX PO SCH (12:52)
[2018-12-03] MEDS: FLONASE NS SCH ×2 (12:52→21:25)
[2018-12-03] MEDS: SODIUM CHLORIDE FLUSH SYRINGE 10 ML IV SCH ×2 (12:53→21:24)
[2018-12-03] MEDS: HumaLOG SUB-Q SCH ×3 (12:56→22:00)
--- NOTE | 2018-12-03 14:11 | Progress Note ---
Assessment and Plan Assessment and plan: Ischemic upper and lower extremity. [facility] following, Dr. Hernandez Cont. 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 Follow-up CRP, sedimentation rate, anti-Ro, anti-la, anti-Maritza 1, AMA, ANCA, rheumatoid factor. Anti-ccp Hyperosmolar hyperglycemic state (HHS) in a newly diagnosed Diabetes-new onset -Patient was admitted to the ICU on insulin drip, now off Insulin drip -Continue serial BMP level monitoring -Cont. Novolin 70/30 Diabetes mellitus type 2-new onset Acute respiratory failure with hypoxia -Continue oxygen supplementation as needed Sepsis -CT abd/pelvis showed generalized bronchiectasis -Blood cultures no growth Vtach s/p shocked 8 tiemes by AICD, as per interrogation, notes in paper chart Cont. Amiodarone cardiology following, b-ernesto added RODNEY planned for Thursday morning Acute metabolic encephalopathy -Head CT scan negative -We'll monitor clinically Acute hypoxic respiratory failure. O2 and BiPAP as clinically indicated. CATRACHO Continue CPAP during sleep and when necessary. Interstitial lung disease. Continue per pulmonary. 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 The aggregate critical care time was [33] minutes. This time is in addition to time spent performing reported procedures but includes the following: [x] Data Review and interpretation [x] Patient assessment and monitoring of vital signs [x] Documentation [x] Medication orders and management History Interval history: No new issues overnight Hospitalist Physical - Constitutional Vitals: Temp Pulse Resp BP Pulse Ox 97.8 F 81 20 115/80 100 08/23/19 04:00 12/03/18 13:01 12/03/18 12:00 12/03/18 13:01 12/03/18 13:01 General appearance: Present: other (drowsy postop) Results - Labs CBC & Chem 7: 12/03/18 04:15 12/03/18 04:15 Labs: Laboratory Last Values WBC 20.8 K/mm3 (4.5-11.0) H 12/03/18 04:15 RBC 5.79 M/mm3 (3.65-5.03) H 12/03/18 04:15 Hgb 16.2 gm/dl (10.1-14.3) H 12/03/18 04:15 Hct 49.1 % (30.3-42.9) H 12/03/18 04:15 MCV 85 fl (79-97) 12/03/18 04:15 MCH 28 pg (28-32) 12/03/18 04:15 MCHC 33 % (30-34) 12/03/18 04:15 RDW 19.2 % (13.2-15.2) H 12/03/18 04:15 Plt Count 179 K/mm3 (140-440) 12/03/18 04:15 Lymph % (Auto) 6.3 % (13.4-35.0) L 11/28/18 01:01 [place] % (Auto) 6.1 % (0.0-7.3) 11/28/18 01:01 Eos % (Auto) 0.0 % (0.0-4.3) 11/28/18 01:01 Baso % (Auto) 0.4 % (0.0-1.8) 11/28/18 01:01 Lymph # 0.9 K/mm3 (1.2-5.4) L 11/28/18 01:01 [place] # 0.9 K/mm3 (0.0-0.8) H 11/28/18 01:01 Eos # 0.0 K/mm3 (0.0-0.4) 11/28/18 01:01 Baso # 0.1 K/mm3 (0.0-0.1) 11/28/18 01:01 Add Manual Diff Complete 12/03/18 04:15 Total Counted 100 12/03/18 04:15 Seg Neutrophils % 87.2 % (40.0-70.0) H 11/28/18 01:01 Seg Neuts % (Manual) 90.0 % (40.0-70.0) H 12/03/18 04:15 0 % 12/03/18 04:15 4.0 % (13.4-35.0) L 12/03/18 04:15 Reactive Lymphs % (Man) 0 % 12/03/18 04:15 6.0 % (0.0-7.3) 12/03/18 04:15 0 % (0.0-4.3) 12/03/18 04:15 0 % (0.0-1.8) 12/03/18 04:15 0 % 12/03/18 04:15 0 % 12/03/18 04:15 0 % 12/03/18 04:15 0 % 12/03/18 04:15 Nucleated RBC % 6.0 % (0.0-0.9) H 12/03/18 04:15 Seg Neutrophils # 13.2 K/mm3 (1.8-7.7) H 11/28/18 01:01 Seg Neutrophils # Man 18.7 K/mm3 (1.8-7.7) H 12/03/18 04:15 Band Neutrophils # 0.0 K/mm3 12/03/18 04:15 0.8 K/mm3 (1.2-5.4) L 12/03/18 04:15 Abs React Lymphs (Man) 0.0 K/mm3 12/03/18 04:15 1.2 K/mm3 (0.0-0.8) H 12/03/18 04:15 0.0 K/mm3 (0.0-0.4) 12/03/18 04:15 0.0 K/mm3 (0.0-0.1) 12/03/18 04:15 0.0 K/mm3 12/03/18 04:15 0.0 K/mm3 12/03/18 04:15 0.0 K/mm3 12/03/18 04:15 Blast Cells # 0.0 K/mm3 12/03/18 04:15 WBC Morphology Not Reportable 12/03/18 04:15 Hypersegmented Neuts Not Reportable 12/03/18 04:15 Hyposegmented Neuts Not Reportable 12/03/18 04:15 Hypogranular Neuts Not Reportable 12/03/18 04:15 Not Reportable 12/03/18 04:15 Not Reportable 12/03/18 04:15 Not Reportable 12/03/18 04:15 Not Reportable 12/03/18 04:15 Not Reportable 12/03/18 04:15 Not Reportable 12/03/18 04:15 Consistent w auto 12/03/18 04:15 Not Reportable 12/03/18 04:15 Plt Clumps, EDTA Not Reportable 12/03/18 04:15 Not Reportable 12/03/18 04:15 Not Reportable 12/03/18 04:15 Not Reportable 12/03/18 04:15 Plt Morphology Comment Not Reportable 12/03/18 04:15 RBC Morphology Not Reportable 12/03/18 04:15 Dimorphic RBCs Not Reportable 12/03/18 04:15 Not Reportable 12/03/18 04:15 Not Reportable 12/03/18 04:15 Not Reportable 12/03/18 04:15 Few 12/03/18 04:15 Not Reportable 12/03/18 04:15 Few 12/03/18 04:15 Not Reportable 12/03/18 04:15 Not Reportable 12/03/18 04:15 Not Reportable 12/03/18 04:15 Not Reportable 12/03/18 04:15 Not Reportable 12/03/18 04:15 Not Reportable 12/03/18 04:15 Not Reportable 12/03/18 04:15 Not Reportable 12/03/18 04:15 Not Reportable 12/03/18 04:15 Not Reportable 12/03/18 04:15 Not Reportable 12/03/18 04:15 Not Reportable 12/03/18 04:15 Not Reportable 12/03/18 04:15 Acanthocytes (Spur) Not Reportable 12/03/18 04:15 Rouleaux Not Reportable 12/03/18 04:15 Not Reportable 12/03/18 04:15 Not Reportable 12/03/18 04:15 Not Reportable 12/03/18 04:15 Not Reportable 12/03/18 04:15 Hem Pathologist Commnt No 12/03/18 04:15 PT 15.6 Sec. (12.2-14.9) H 11/28/18 01:01 INR 1.27 (0.87-1.13) H 11/28/18 01:01 APTT 53.6 Sec. (24.2-36.6) H 12/03/18 07:35 POC ABG pH 7.413 (7.35-7.45) 12/01/18 10:39 ABG pH 7.414 pH Units (7.350-7.450) 11/28/18 01:01 POC ABG pCO2 30.6 (35-45) L 12/01/18 10:39 ABG pCO2 48.8 mm Hg 11/28/18 01:01 POC ABG pO2 95 (80-105) 12/01/18 10:39 ABG pO2 65.7 mm Hg (80.0-90.0) L 11/28/18 01:01 POC ABG HCO3 19.5 (22-26 mml/L) 12/01/18 10:39 ABG HCO3 30.5 mmol/L (20.0-26.0) H 11/28/18 01:01 POC ABG Total CO2 20 (23-27mmol/L) 12/01/18 10:39 POC ABG O2 Sat 98 12/01/18 10:39 ABG O2 Saturation 91.3 % (95.0-99.0) L 11/28/18 01:01 ABG O2 Content 22.2 (0.0-44) 11/28/18 01:01 POC ABG Base Excess -5 ((-2) - (+3)mmol/L) 12/01/18 10:39 ABG Base Excess 4.6 mmol/L (-2.0-3.0) H 11/28/18 01:01 ABG Hemoglobin 18.0 gm/dl (12.0-16.0) H 11/28/18 01:01 ABG Carboxyhemoglobin 3.1 % (0.0-5.0) 11/28/18 01:01 ABG Methemoglobin 0.5 % (0.0-1.5) 11/28/18 01:01 VBG pH 7.414 (7.320-7.420) 11/28/18 01:01 88.0 % (95.0-99.0) L 11/28/18 01:01 28 % 12/01/18 10:39 Sodium 137 mmol/L (137-145) 12/03/18 04:15 Potassium 4.3 mmol/L (3.6-5.0) 12/03/18 04:15 Chloride 101.6 mmol/L (98-107) 12/03/18 04:15 Carbon Dioxide 25 mmol/L (22-30) 12/03/18 04:15 15 mmol/L 12/03/18 04:15 BUN 35 mg/dL (7-17) H 12/03/18 04:15 1.9 mg/dL (0.7-1.2) H 12/03/18 04:15 Estimated GFR 36 ml/min 12/03/18 04:15 18 % 12/03/18 04:15 Glucose 231 mg/dL (65-100) H 12/03/18 04:15 POC Glucose 153 (70-105) H 12/03/18 11:23 12.5 % (4-6) H 11/28/18 01:01 Lactic Acid 5.00 mmol/L (0.7-2.0) H* 11/28/18 15:14 Calcium 8.1 mg/dL (8.4-10.2) L 12/03/18 04:15 Phosphorus 3.30 mg/dL (2.5-4.5) 11/30/18 07:18 Magnesium 3.20 mg/dL (1.7-2.3) H 11/30/18 07:18 2.00 mg/dL (0.1-1.2) H 12/02/18 04:45 1.3 mg/dL (0-0.2) H 11/28/18 01:01 1.1 mg/dL 11/28/18 01:01 AST 156 units/L (5-40) H 12/02/18 04:45 ALT 183 units/L (7-56) H 12/02/18 04:45 225 units/L (35-129) H 12/02/18 04:45 30.0 umol/L (25-60) 11/28/18 01:01 976 units/L (91-180) H 12/01/18 13:45 228 units/L (30-135) H 11/28/18 01:01 0.030 ng/mL (0.00-0.029) H D 11/28/18 07:50 5.9 g/dL (6.3-8.2) L D 12/02/18 04:45 2.6 g/dL (3.9-5) L 12/02/18 04:45 0.8 % 12/02/18 04:45 Triglycerides 356 mg/dL (2-149) H 11/28/18 01:01 Cholesterol 200 mg/dL (50-199) H 11/28/18 01:01 125 mg/dL (50-130) 11/28/18 01:01 39 mg/dL (40-59) L 11/28/18 01:01 5.12 % 11/28/18 01:01 TSH 0.288 mlU/mL (0.270-4.200) 11/28/18 01:01 HCG, Quant < 2 mIU/mL (0-4) 11/28/18 01:01 Straw (Yellow) 11/28/18 00:37 Clear (Clear) 11/28/18 00:37 7.0 (5.0-7.0) 11/28/18 00:37 Ur Specific [place] 1.023 (1.003-1.030) 18 00:37 30 mg/dl mg/dL (Negative) 11/28/18 00:37 >=500 mg/dL (Negative) 11/28/18 00:37 Tr mg/dL (Negative) 11/28/18 00:37 Sm (Negative) 11/28/18 00:37 Neg (Negative) 11/28/18 00:37 Neg (Negative) 11/28/18 00:37 < 2.0 mg/dL (<2.0) 18 00:37 Ur Leukocyte Esterase Neg (Negative) 11/28/18 00:37 < 1.0 /HPF (0.0-6.0) 11/28/18 00:37 1.0 /HPF (0.0-6.0) 11/28/18 00:37 None seen (None Seen) 11/29/18 13:40 117.4 mg/dL (0.1-20.0) H 11/29/18 13:40 53 mmol/L 11/29/18 13:40 120 mg/dL (5-11.8) H 11/29/18 13:40 Urine HCG, Qual Negative (Negative) 11/28/18 Unknown Salicylates < 0.3 mg/dL (2.8-20.0) L 11/28/18 01:01 Presumptive negative 11/28/18 00:37 Presumptive negative 11/28/18 00:37 Acetaminophen < 5.0 ug/mL (10.0-30.0) L 11/28/18 01:01 Ur Barbiturates Screen Presumptive negative 11/28/18 00:37 Ur Phencyclidine Scrn Presumptive negative 11/28/18 00:37 Ur Amphetamines Screen Presumptive negative 11/28/18 00:37 U Benzodiazepines Scrn Presumptive negative 11/28/18 00:37 Presumptive negative 11/28/18 00:37 U Marijuana (THC) Screen Presumptive negative 11/28/18 00:37 Disclamer 11/28/18 00:37 Plasma/Serum Alcohol < 0.01 % (0-0.07) 11/28/18 01:01 Blood Type B POSITIVE 11/28/18 01:01 Antibody Screen Negative 11/28/18 01:01 Active Medications - Current Medications Current Medications: Generic Name Dose Route Start Last Admin Trade Name Freq PRN Reason Stop Dose Admin Acetaminophen 650 mg 11/28/18 03:02 Tylenol PO Q4H PRN Pain MILD(1-3)/Fever >100.5/TURPIN Alprazolam 0.25 mg 11/30/18 01:09 11/30/18 01:21 Xanax PO 0.25 mg Q8H PRN Administration Anxiety Amiodarone HCl 200 mg 12/02/18 12:00 12/03/18 12:50 Cordarone PO 200 mg BID VIOLA Administration Amitriptyline HCl 25 mg 11/29/18 22:00 12/02/18 21:31 Elavil PO 25 mg HS VIOLA Administration Aspirin 81 mg 11/29/18 10:00 12/03/18 12:50 Baby Aspirin PO 81 mg QDAY VIOLA Administration Benzocaine 3 spray 12/02/18 13:00 12/03/18 10:18 Hurricaine One 20% Topical [place] MM 12/03/18 23:59 3 spray PREOP NR Administration Dextrose 0 ml 11/28/18 02:19 D50w (25gm) Syringe IV PRN PRN Hypoglycemia Fluticasone Propionate 50 mcg 11/29/18 10:00 12/03/18 12:52 Flonase NS 50 mcg BID VIOLA Administration Hydralazine HCl 10 mg 11/28/18 03:41 Apresoline IV Q6HR PRN Blood Pressure Hydrophilic Ointment 1 applic 11/30/18 11:55 Vaseline Lip Therapy TP DIRECT PRN DRY LIPS Argatroban 250 mg/ Sodium 250 mls @ 3.682 mls/hr 11/29/18 13:00 12/01/18 02:17 Chloride IV 0.5 mcg/kg/min TITR VIOLA 3.682 mls/hr Administration Protocol 0.5 MCG/KG/MIN Sodium Chloride 1,000 mls @ 125 mls/hr 12/02/18 13:00 12/03/18 11:24 Nacl 0.9% 1000 Ml IV 0 mls/hr DIRECT VIOLA Infusion Insulin Human Isoph/Insulin Regular 15 unit 12/02/18 17:00 12/03/18 12:55 Humulin 70/30 SUB-Q 15 unit [facility] Administration Insulin Human Lispro 0 unit 11/30/18 09:00 12/03/18 12:56 Humalog SUB-Q Not Given [facility] Protocol Metoprolol Tartrate 25 mg 11/30/18 14:00 12/03/18 06:25 Lopressor PO Not Given [facility]HR [facility] Montelukast Sodium 10 mg 11/29/18 18:00 12/02/18 17:17 Singulair PO 10 mg QPM VIOLA Administration Morphine Sulfate 2 mg 11/28/18 03:02 12/03/18 04:15 Morphine IV 2 mg Q4H PRN Administration Pain, Moderate (4-6) Nitroglycerin 0.75 inch 11/29/18 14:00 12/03/18 06:21 Nitro-Bid 2% TP 0.75 inch QIDNTG VIOLA Administration Protocol Ondansetron HCl 4 mg 11/28/18 03:02 Zofran IV Q8H PRN Nausea And Vomiting Pantoprazole Sodium 40 mg 11/29/18 10:00 12/03/18 12:52 Protonix PO 40 mg QDAY VIOLA Administration Pentoxifylline 400 mg 11/29/18 13:00 12/03/18 12:51 Trental PO 400 mg Q12HR VIOLA Administration Prednisone 50 mg 11/29/18 10:00 12/03/18 12:50 Deltasone PO 50 mg QDAY VIOLA Administration Sodium Chloride 10 ml 11/28/18 10:00 12/03/18 12:53 Sodium Chloride Flush Syringe 10 Ml IV 10 ml BID VIOLA Administration Sodium Chloride 10 ml 11/28/18 03:02 Sodium Chloride Flush Syringe 10 Ml IV PRN PRN LINE FLUSH Nutrition/Malnutrition Assess - Dietary Evaluation Nutrition/Malnutrition Findings: Nutrition Notes Start: 11/29/18 14:34 Freq: Status: Active Protocol: Document 11/29/18 14:35 LM (Rec: 11/29/18 14:40 LM [id number]) Nutrition Notes Need for Assessment generated from: Education Initial or Follow up Brief Note Current Diagnosis Diabetes,Hypertension Subjective/Other Information Consult for DM education. #1 Nutrition Diagnosis Food and nutrition-related knowledge deficit Etiology No prior DM diet education As Evidenced by Signs and Symptoms Pt statement of needing DM diet education, HGB A1C of 12. 5, BG 203 Nutrition Intervention Teaching Recipient Patient Learning Readiness Good Teaching Methods Discussion,Handout Education Handouts Provided Carbohydrate Counting for People with Diabetes RD phone number provided Yes Patient aware of follow up options Yes Revisit per MD consult or patient Sign Off request:
[2018-12-03 16:26] LABS: Heparin-Induced Platelet Antib Negative (Negative); Unfractionated Heparin Negative (Negative)
--- NOTE | 2018-12-03 16:52 | Post Anesthesia Evaluation ---
- Post Anesthesia Evaluation Patient Participated: Yes Airway Patent: Yes Stable Respiratory Function: Yes Nausea/Vomiting: No Temp > 96.8F: Yes Pain Manageable: Yes Adequeate Hydration: Yes Anesthesia Complications: No Block Receding Appropriately: Not Applicable
--- NOTE | 2018-12-03 17:01 | Progress Note ---
Assessment and Plan - Patient Problems (1) Acute kidney injury Current Visit: Yes Status: Acute Plan to address problem: Kidney function is now worsening. Suspect Pre-renal azotemia vs Acute tubular necrosis secondary to hypotension. Continue volume repletion. Follow up electrolytes and renal function (2) Hypotension Current Visit: Yes Status: Acute Plan to address problem: Gentle volume patient monitoring closely for signs of volume overload. (3) Hyperkalemia Current Visit: Yes Status: Acute Plan to address problem: Hyperkalemia on presentation improved with medical management. Follow-up electrolytes (4) Hypernatremia Current Visit: Yes Status: Acute Plan to address problem: Hypernatremia secondary to free water losses. Replace free water and follow-up sodium (5) Hyperosmolar hyperglycemic coma due to diabetes mellitus without ketoa cidosis Current Visit: Yes Status: Acute Plan to address problem: Steroid induced hyperglycemia/newly diagnosed type 2 diabetes mellitus. Blood sugar control by primary attending (6) Acrocyanosis Current Visit: Yes Status: Acute Plan to address problem: Etiology uncertain. May be related to scleroderma. Arterial Duplex shows that Diffuse peripheral vascular disease in both lower extremities with occlusive disease of the left anterior tibial and dorsalis pedis arteries. Distal disease in the left hand. 1. Department Store General Manager is ruling out embolic disease. 2. Vascular input appreciated: Possible severe vasospasm the setting of scleroderma. 3. 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 (7) Transaminasemia Current Visit: Yes Status: Acute Plan to address problem: Probable ischemic hepatitis. Follow-up liver function tests (8) Heart failure with reduced ejection fraction Current Visit: Yes Status: Acute Plan to address problem: 3 caution with diuresis. Close monitoring of volume status. Subjective Date of service: 12/03/18 Principal diagnosis: thrombosis Interval history: Patient seen lying in bed. Still complains of pain in her feet and hands. No Family member at the bedside. No nausea or vomiting Objective - Exam Narrative Exam: Obese young -[place] Islander female lying in bed in no acute distress HEENT: NCAT, pink oral mucous membrane Neck: Supple, no venous distention CVS: S1S2 RRR with no murmur, rub or gallop Chest: Clear to auscultation Abdomen: obese, soft, nontender, no organomegaly, bowel sounds are present Extremities: No edema, cool extremities with cyanotic toes, and cyanotic left middle distal phalanx and nail bed Neuro: Awake, alert no focal deficits - Vital Signs Vital signs: Vital Signs - 12hr 12/03/18 12/03/18 12/03/18 05:00 05:01 05:11 Pulse Rate 70 70 71 Pulse Rate [ From Monitor] Respiratory 35 H 24 Rate Blood Pressure 99/68 99/68 O2 Sat by Pulse 100 97 Oximetry 12/03/18 12/03/18 12/03/18 05:21 05:31 05:41 Pulse Rate 71 71 71 Pulse Rate [ From Monitor] Respiratory 30 H 32 H 36 H Rate Blood Pressure 102/71 107/61 107/61 O2 Sat by Pulse 100 99 95 Oximetry 12/03/18 12/03/18 12/03/18 05:51 06:00 06:11 Pulse Rate 71 72 72 Pulse Rate [ From Monitor] Respiratory 25 H 40 H 30 H Rate Blood Pressure 94/71 101/71 101/71 O2 Sat by Pulse 98 100 100 Oximetry 12/03/18 12/03/18 12/03/18 06:21 06:25 06:31 Pulse Rate 73 73 73 Pulse Rate [ From Monitor] Respiratory 33 H 33 H Rate Blood Pressure 105/73 105/73 108/70 O2 Sat by Pulse 93 98 Oximetry 12/03/18 12/03/18 12/03/18 06:41 06:51 07:00 Pulse Rate 73 74 73 Pulse Rate [ From Monitor] Respiratory 34 H 31 H 29 H Rate Blood Pressure 108/70 104/71 106/79 O2 Sat by Pulse 100 100 100 Oximetry 12/03/18 12/03/18 12/03/18 07:11 07:21 07:31 Pulse Rate 74 73 74 Pulse Rate [ From Monitor] Respiratory 31 H 29 H 32 H Rate Blood Pressure 106/79 109/69 101/65 O2 Sat by Pulse 98 99 99 Oximetry 12/03/18 12/03/18 12/03/18 07:40 07:50 08:00 Pulse Rate 75 74 75 Pulse Rate [ 73 From Monitor] Respiratory 19 26 H 27 H Rate Blood Pressure 101/65 110/62 110/81 O2 Sat by Pulse 100 99 100 Oximetry 12/03/18 12/03/18 12/03/18 08:11 08:21 08:30 Pulse Rate 75 76 77 Pulse Rate [ From Monitor] Respiratory Rate Blood Pressure 110/62 115/81 121/73 O2 Sat by Pulse 100 100 100 Oximetry 12/03/18 12/03/18 12/03/18 08:41 08:51 09:00 Pulse Rate 76 80 80 Pulse Rate [ From Monitor] Respiratory Rate Blood Pressure 121/73 115/82 116/80 O2 Sat by Pulse 100 100 100 Oximetry 12/03/18 12/03/18 12/03/18 09:11 09:21 09:31 Pulse Rate 77 76 75 Pulse Rate [ From Monitor] Respiratory Rate Blood Pressure 116/80 107/66 124/80 O2 Sat by Pulse 100 100 100 Oximetry 12/03/18 12/03/18 12/03/18 09:41 09:50 10:00 Pulse Rate 77 73 70 Pulse Rate [ From Monitor] Respiratory Rate Blood Pressure 101/66 97/63 88/61 O2 Sat by Pulse 100 100 100 Oximetry 12/03/18 12/03/18 12/03/18 10:11 10:20 10:30 Pulse Rate 70 70 73 Pulse Rate [ From Monitor] Respiratory Rate Blood Pressure 89/52 94/57 101/61 O2 Sat by Pulse 98 100 100 Oximetry 12/03/18 12/03/18 12/03/18 10:40 10:51 11:00 Pulse Rate 72 74 74 Pulse Rate [ From Monitor] Respiratory Rate Blood Pressure 105/71 110/57 99/66 O2 Sat by Pulse 100 100 100 Oximetry 12/03/18 12/03/18 12/03/18 11:10 11:20 11:30 Pulse Rate 75 76 75 Pulse Rate [ From Monitor] Respiratory Rate Blood Pressure 108/71 107/73 111/75 O2 Sat by Pulse 100 100 100 Oximetry 12/03/18 12/03/18 12/03/18 11:40 11:50 12:00 Pulse Rate 77 77 Pulse Rate [ 76 From Monitor] Respiratory 20 Rate Blood Pressure 111/72 112/66 O2 Sat by Pulse 100 100 100 Oximetry 12/03/18 12/03/18 12/03/18 12:01 12:10 12:12 Pulse Rate 78 79 77 Pulse Rate [ From Monitor] Respiratory Rate Blood Pressure 116/79 115/78 O2 Sat by Pulse 100 100 Oximetry 12/03/18 12/03/18 12/03/18 12:20 12:31 12:41 Pulse Rate 79 81 88 Pulse Rate [ From Monitor] Respiratory Rate Blood Pressure 125/83 118/82 133/85 O2 Sat by Pulse 100 100 92 Oximetry 12/03/18 12/03/18 12/03/18 12:51 13:01 13:11 Pulse Rate 80 81 92 H Pulse Rate [ From Monitor] Respiratory Rate Blood Pressure 122/67 115/80 108/66 O2 Sat by Pulse 100 100 91 Oximetry 12/03/18 12/03/18 12/03/18 13:21 13:31 13:41 Pulse Rate 81 82 86 Pulse Rate [ From Monitor] Respiratory Rate Blood Pressure 108/66 132/62 114/63 O2 Sat by Pulse 100 68 L 92 Oximetry 12/03/18 12/03/18 12/03/18 13:51 14:01 14:11 Pulse Rate 86 87 86 Pulse Rate [ From Monitor] Respiratory Rate Blood Pressure 45/22 121/90 256/172 O2 Sat by Pulse 90 74 L 99 Oximetry 12/03/18 12/03/18 12/03/18 14:21 14:31 14:41 Pulse Rate 86 83 86 Pulse Rate [ From Monitor] Respiratory Rate Blood Pressure 121/76 139/70 58/17 O2 Sat by Pulse 84 100 100 Oximetry 12/03/18 12/03/18 12/03/18 14:51 15:01 15:10 Pulse Rate 90 90 90 Pulse Rate [ From Monitor] Respiratory Rate Blood Pressure 86/56 120/74 119/80 O2 Sat by Pulse 100 100 100 Oximetry 12/03/18 12/03/18 12/03/18 15:20 15:31 15:41 Pulse Rate 92 H 91 H 96 H Pulse Rate [ From Monitor] Respiratory Rate Blood Pressure 116/87 119/69 106/71 O2 Sat by Pulse 100 100 100 Oximetry 12/03/18 12/03/18 12/03/18 15:51 15:56 16:01 Pulse Rate 89 94 H Pulse Rate [ From Monitor] Respiratory Rate Blood Pressure 92/71 120/63 O2 Sat by Pulse 100 100 100 Oximetry - Lab 12/03/18 04:15 12/03/18 04:15 Most recent lab results ABG pH 7.414 pH Units (7.350-7.450) 11/28/18 01:01 ABG pCO2 48.8 mm Hg 11/28/18 01:01 ABG pO2 65.7 mm Hg (80.0-90.0) L 11/28/18 01:01 ABG HCO3 30.5 mmol/L (20.0-26.0) H 11/28/18 01:01 ABG O2 Saturation 91.3 % (95.0-99.0) L 11/28/18 01:01 Calcium 8.1 mg/dL (8.4-10.2) L 12/03/18 04:15 Phosphorus 3.30 mg/dL (2.5-4.5) 11/30/18 07:18 Magnesium 3.20 mg/dL (1.7-2.3) H 11/30/18 07:18 117.4 mg/dL (0.1-20.0) H 11/29/18 13:40 53 mmol/L 11/29/18 13:40 120 mg/dL (5-11.8) H 11/29/18 13:40 Medications & Allergies - Medications Allergies/Adverse Reactions: Allergies lisinopril Adverse Reaction (Severe, Verified 12/17/13 19:00) SORE THROAT;PERSISTENT COUGH Home Medications: Home Medications Medication Instructions Recorded Confirmed Last Taken Type Aspirin [Aspirin BABY CHEW TAB] 81 mg PO QDAY 11/28/18 11/29/18 11/26/18 History Fluticasone [Flonase] 1 spray NS BID 11/28/18 11/28/18 Unknown History Furosemide [Lasix TAB] 40 mg PO BID 11/28/18 11/28/18 Unknown History Ibuprofen [Motrin] 600 mg PO Q6H PRN 11/28/18 11/28/18 Unknown History Montelukast [Singulair] 10 mg PO QPM 11/28/18 11/28/18 Unknown History Mycophenolate [Cellcept] 500 mg PO BID 11/28/18 11/28/18 Unknown History Mycophenolate [Cellcept] 500 mg PO BID PRN MDD 2 TABS 11/28/18 11/28/18 Unknown History Pantoprazole [Protonix] 40 mg PO QDAY 11/28/18 11/28/18 Unknown History Sacubitril/Valsartan [Entresto 1 each PO BID 11/28/18 11/28/18 Unknown History 49-51 mg] predniSONE [Deltasone] 50 mg PO QDAY 11/28/18 11/28/18 Unknown History raNITIdine HCl [Zantac] 150 mg PO BID 11/28/18 11/28/18 Unknown History Amitriptyline [Elavil] 25 mg PO HS 11/29/18 11/29/18 11/26/18 History Aspirin [Adult Aspirin] 81 mg PO ONCE 11/29/18 11/29/18 11/26/18 History Entresto 49-51 mg 49 mg PO BID 11/29/18 11/29/18 11/26/18 History HYDROcodone/APAP 5-325 5 mg PO Q6HR PRN 11/29/18 11/29/18 Unknown History Active Medications: Generic Name Dose Route Start Last Admin Trade Name Freq PRN Reason Stop Dose Admin Acetaminophen 650 mg 11/28/18 03:02 Tylenol PO Q4H PRN Pain MILD(1-3)/Fever >100.5/TURPIN Alprazolam 0.25 mg 11/30/18 01:09 11/30/18 01:21 Xanax PO 0.25 mg Q8H PRN Administration Anxiety Amiodarone HCl 200 mg 12/02/18 12:00 12/03/18 12:50 Cordarone PO 200 mg BID VIOLA Administration Amitriptyline HCl 25 mg 11/29/18 22:00 12/02/18 21:31 Elavil PO 25 mg HS VIOLA Administration Aspirin 81 mg 11/29/18 10:00 12/03/18 12:50 Baby Aspirin PO 81 mg QDAY VIOLA Administration Benzocaine 3 spray 12/02/18 13:00 12/03/18 10:18 Hurricaine One 20% Topical [place] MM 12/03/18 23:59 3 spray PREOP NR Administration Dextrose 0 ml 11/28/18 02:19 D50w (25gm) Syringe IV PRN PRN Hypoglycemia Fluticasone Propionate 50 mcg 11/29/18 10:00 12/03/18 12:52 Flonase NS 50 mcg BID VIOLA Administration Hydralazine HCl 10 mg 11/28/18 03:41 Apresoline IV Q6HR PRN Blood Pressure Hydrophilic Ointment 1 applic 11/30/18 11:55 Vaseline Lip Therapy TP DIRECT PRN DRY LIPS Argatroban 250 mg/ Sodium 250 mls @ 3.682 mls/hr 11/29/18 13:00 12/01/18 02:17 Chloride IV 0.5 mcg/kg/min TITR VIOLA 3.682 mls/hr Administration Protocol 0.5 MCG/KG/MIN Sodium Chloride 1,000 mls @ 125 mls/hr 12/02/18 13:00 12/03/18 11:24 Nacl 0.9% 1000 Ml IV 0 mls/hr DIRECT VIOLA Infusion Insulin Human Isoph/Insulin Regular 15 unit 12/02/18 17:00 12/03/18 12:55 Humulin 70/30 SUB-Q 15 unit BIDDIAB VIOLA Administration Insulin Human Lispro 0 unit 11/30/18 09:00 12/03/18 12:56 Humalog SUB-Q Not Given ACHS [facility] Protocol Metoprolol Tartrate 25 mg 11/30/18 14:00 12/03/18 15:04 Lopressor PO Not Given Q8HR VIOLA Montelukast Sodium 10 mg 11/29/18 18:00 12/02/18 17:17 Singulair PO 10 mg QPM VIOLA Administration Morphine Sulfate 2 mg 11/28/18 03:02 12/03/18 14:48 Morphine IV 2 mg Q4H PRN Administration Pain, Moderate (4-6) Nitroglycerin 0.75 inch 11/29/18 14:00 12/03/18 06:21 Nitro-Bid 2% TP 0.75 inch QIDNTG VIOLA Administration Protocol Ondansetron HCl 4 mg 11/28/18 03:02 Zofran IV Q8H PRN Nausea And Vomiting Pantoprazole Sodium 40 mg 11/29/18 10:00 12/03/18 12:52 Protonix PO 40 mg QDAY VIOLA Administration Pentoxifylline 400 mg 11/29/18 13:00 12/03/18 12:51 Trental PO 400 mg Q12HR VIOLA Administration Prednisone 50 mg 11/29/18 10:00 12/03/18 12:50 Deltasone PO 50 mg QDAY VIOLA Administration Sodium Chloride 10 ml 11/28/18 10:00 12/03/18 12:53 Sodium Chloride Flush Syringe 10 Ml IV 10 ml BID VIOLA Administration Sodium Chloride 10 ml 11/28/18 03:02 Sodium Chloride Flush Syringe 10 Ml IV PRN PRN LINE FLUSH
[2018-12-03] MEDS: SINGULAIR PO SCH (17:34)
[2018-12-03] MEDS: ELAVIL PO SCH (21:23)
[2018-12-03] MEDS: XANAX PO PRN (21:23)
[2018-12-04] MEDS: ARGATROBAN 250 MG in NACL 0.9% 250ML 247.5 ML IV SCH (00:26)
[2018-12-04] MEDS: MORPHINE IV PRN (00:27)
[2018-12-04] MEDS: LOPRESSOR PO SCH ×3 (06:08→22:03)
[2018-12-04] MEDS: NITRO-BID 2% TP SCH ×7 (06:09→17:02)
[2018-12-04 07:09] LABS: Basophils # (Auto) 0.1 K/mm3 (0.0-0.1); Basophils % (Auto) 0.3 % (0.0-1.8); Lymphocytes # (Auto) 0.2 K/mm3 (1.2-5.4); Lymphocytes % (Auto) 1.3 % (13.4-35.0); Mean Corpuscular HGB Conc 33 % (30-34); Mean Corpuscular Volume 86 fl (79-97); Monocytes # (Auto) 1.9 K/mm3 (0.0-0.8); Monocytes % (Auto) 10.5 % (0.0-7.3); Platelet Count 194 K/mm3 (140-440); Red Blood Count 5.73 M/mm3 (3.65-5.03); Red Cell Distribution Width 19.5 % (13.2-15.2)
[2018-12-04 07:31] LABS: Calcium 8.9 mg/dL (8.4-10.2)
[2018-12-04] MEDS: HumaLOG SUB-Q SCH ×4 (07:58→22:03)
[2018-12-04] MEDS: BABY ASPIRIN PO SCH (10:40)
[2018-12-04] MEDS: ENTRESTO 49-51 MG PO SCH ×2 (10:40→22:03)
[2018-12-04] MEDS: TRENTAL PO SCH ×2 (10:40→22:03)
[2018-12-04] MEDS: PROTONIX PO SCH (10:40)
[2018-12-04] MEDS: DELTASONE PO SCH (10:40)
[2018-12-04] MEDS: CORDARONE PO SCH ×2 (10:40→22:03)
[2018-12-04] MEDS: FLONASE NS SCH ×2 (10:41→22:02)
[2018-12-04] MEDS: SODIUM CHLORIDE FLUSH SYRINGE 10 ML IV SCH (10:42)
--- NOTE | 2018-12-04 11:03 | Progress Note ---
Assessment and Plan Assessment and plan: Ischemic lower > upper extremity. Vas Surgery following, Dr. Hernandez Cont. 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 Follow-up CRP, sedimentation rate, anti-Ro, anti-la, anti-Maritza 1, AMA, ANCA, rheumatoid factor. Anti-ccp Hyperosmolar hyperglycemic state (HHS) in a newly diagnosed Diabetes-new onset -Patient was admitted to the ICU on insulin drip, now off Insulin drip -Continue serial BMP level monitoring -Cont. Novolin 70/30 Diabetes mellitus type 2-new onset Sepsis -CT abd/pelvis showed generalized bronchiectasis -Blood cultures no growth Vtach s/p shocked 8 tiemes by AICD, as per interrogation, notes in paper chart Cont. Amiodarone cardiology following, b-ernesto added RODNEY planned for Thursday morning Metabolic encephalopathy, improved -Head CT scan negative -We'll monitor clinically Acute hypoxic respiratory failure. O2 and BiPAP as clinically indicated. CATRACHO Continue CPAP during sleep and when necessary. Interstitial lung disease. Continue per pulmonary. Elevated troponin -Probably secondary to demand ischemia due to acute process -We'll continue serial troponin and EKG monitoring EDGARDO -Probably vasomotor nephropathy due to dehydration -On IV fluid, will monitor creatinine level -Nephrology following Abnormal LFT -Probably due to acute process -CT abd/pelvis negative for liver pathology -We'll monitor levels Hypertension -Stable -On when necessary hydralazine Cardiomyopathy with EF of 20-25% -Status post AICD placement -No acute exacerbation GERD -On famotidine DVT prophylaxis with heparin Partient has systemic sclerosis, sees a Soils Analyst Was on Cellcept, but I did not resume because it may cause thrombosis Full code status The high probability of a clinically significant, sudden or life threatening deterioration of the [respiratory, cardiac and rheumatologic] system(s) required my full and direct attention, intervention and personal management. The aggregate critical care time was [33] minutes. This time is in addition to time spent performing reported procedures but includes the following: [x] Data Review and interpretation [x] Patient assessment and monitoring of vital signs [x] Documentation [x] Medication orders and management History Interval history: No new issues overnight Hospitalist Physical - Constitutional Vitals: Temp Pulse Resp BP Pulse Ox 97.6 F 74 20 118/77 100 12/04/18 08:00 12/04/18 10:39 12/04/18 08:00 12/04/18 10:39 12/04/18 08:11 General appearance: Present: other (drowsy postop) - EENT Eyes: Present: PERRL, EOM intact ENT: hearing intact, clear oral mucosa, dentition normal - Neck Neck: Present: supple, normal ROM - Respiratory Respiratory effort: normal Respiratory: bilateral: CTA - Cardiovascular Rhythm: regular Heart Sounds: Present: S1 & S2. Absent: gallop, rub - Extremities Extremities: no ischemia, No edema, Full ROM - Abdominal General gastrointestinal: soft, non-tender, non-distended, normal bowel sounds - Integumentary Integumentary: Present: clear, warm, dry - Neurologic Neurologic: CNII-XII intact, moves all extremities Results - Labs CBC & Chem 7: 12/04/18 06:00 12/04/18 06:00 Labs: Laboratory Last Values WBC 18.1 K/mm3 (4.5-11.0) H 12/04/18 06:00 RBC 5.73 M/mm3 (3.65-5.03) H 12/04/18 06:00 Hgb 16.0 gm/dl (10.1-14.3) H 12/04/18 06:00 Hct 49.0 % (30.3-42.9) H 12/04/18 06:00 MCV 86 fl (79-97) 12/04/18 06:00 MCH 28 pg (28-32) 12/04/18 06:00 MCHC 33 % (30-34) 12/04/18 06:00 RDW 19.5 % (13.2-15.2) H 12/04/18 06:00 Plt Count 194 K/mm3 (140-440) 12/04/18 06:00 Lymph % (Auto) 1.3 % (13.4-35.0) L 12/04/18 06:00 Converse % (Auto) 10.5 % (0.0-7.3) H 12/04/18 06:00 Eos % (Auto) 0.0 % (0.0-4.3) 12/04/18 06:00 Baso % (Auto) 0.3 % (0.0-1.8) 12/04/18 06:00 Lymph # 0.2 K/mm3 (1.2-5.4) L 12/04/18 06:00 Converse # 1.9 K/mm3 (0.0-0.8) H 12/04/18 06:00 Eos # 0.0 K/mm3 (0.0-0.4) 12/04/18 06:00 Baso # 0.1 K/mm3 (0.0-0.1) 12/04/18 06:00 Add Manual Diff Complete 12/03/18 04:15 Total Counted 100 12/03/18 04:15 Seg Neutrophils % 87.9 % (40.0-70.0) H 12/04/18 06:00 Seg Neuts % (Manual) 90.0 % (40.0-70.0) H 12/03/18 04:15 0 % 12/03/18 04:15 4.0 % (13.4-35.0) L 12/03/18 04:15 Reactive Lymphs % (Man) 0 % 12/03/18 04:15 6.0 % (0.0-7.3) 12/03/18 04:15 0 % (0.0-4.3) 12/03/18 04:15 0 % (0.0-1.8) 12/03/18 04:15 0 % 12/03/18 04:15 0 % 12/03/18 04:15 0 % 12/03/18 04:15 0 % 12/03/18 04:15 Nucleated RBC % 6.0 % (0.0-0.9) H 12/03/18 04:15 Seg Neutrophils # 15.9 K/mm3 (1.8-7.7) H 12/04/18 06:00 Seg Neutrophils # Man 18.7 K/mm3 (1.8-7.7) H 12/03/18 04:15 Band Neutrophils # 0.0 K/mm3 12/03/18 04:15 0.8 K/mm3 (1.2-5.4) L 12/03/18 04:15 Abs React Lymphs (Man) 0.0 K/mm3 12/03/18 04:15 1.2 K/mm3 (0.0-0.8) H 12/03/18 04:15 0.0 K/mm3 (0.0-0.4) 12/03/18 04:15 0.0 K/mm3 (0.0-0.1) 12/03/18 04:15 0.0 K/mm3 12/03/18 04:15 0.0 K/mm3 12/03/18 04:15 0.0 K/mm3 12/03/18 04:15 Blast Cells # 0.0 K/mm3 12/03/18 04:15 WBC Morphology Not Reportable 12/03/18 04:15 Hypersegmented Neuts Not Reportable 12/03/18 04:15 Hyposegmented Neuts Not Reportable 12/03/18 04:15 Hypogranular Neuts Not Reportable 12/03/18 04:15 Not Reportable 12/03/18 04:15 Not Reportable 12/03/18 04:15 Not Reportable 12/03/18 04:15 Not Reportable 12/03/18 04:15 Not Reportable 12/03/18 04:15 Not Reportable 12/03/18 04:15 Consistent w auto 12/03/18 04:15 Not Reportable 12/03/18 04:15 Plt Clumps, EDTA Not Reportable 12/03/18 04:15 Not Reportable 12/03/18 04:15 Not Reportable 12/03/18 04:15 Not Reportable 12/03/18 04:15 Plt Morphology Comment Not Reportable 12/03/18 04:15 RBC Morphology Not Reportable 12/03/18 04:15 Dimorphic RBCs Not Reportable 12/03/18 04:15 Not Reportable 12/03/18 04:15 Not Reportable 12/03/18 04:15 Not Reportable 12/03/18 04:15 Few 12/03/18 04:15 Not Reportable 12/03/18 04:15 Few 12/03/18 04:15 Not Reportable 12/03/18 04:15 Not Reportable 12/03/18 04:15 Not Reportable 12/03/18 04:15 Not Reportable 12/03/18 04:15 Not Reportable 12/03/18 04:15 Not Reportable 12/03/18 04:15 Not Reportable 12/03/18 04:15 Not Reportable 12/03/18 04:15 Not Reportable 12/03/18 04:15 Not Reportable 12/03/18 04:15 Not Reportable 12/03/18 04:15 Not Reportable 12/03/18 04:15 Not Reportable 12/03/18 04:15 Acanthocytes (Spur) Not Reportable 12/03/18 04:15 Rouleaux Not Reportable 12/03/18 04:15 Not Reportable 12/03/18 04:15 Not Reportable 12/03/18 04:15 Not Reportable 12/03/18 04:15 ESR 1 mm/Hr (0-20) 12/03/18 14:33 Not Reportable 12/03/18 04:15 Hem Pathologist Commnt No 12/03/18 04:15 PT 15.6 Sec. (12.2-14.9) H 11/28/18 01:01 INR 1.27 (0.87-1.13) H 11/28/18 01:01 APTT 51.3 Sec. (24.2-36.6) H 12/04/18 06:00 Heparin Anti-Xa, Unfract Negative (Negative) 11/29/18 16:46 POC ABG pH 7.413 (7.35-7.45) 12/01/18 10:39 ABG pH 7.414 pH Units (7.350-7.450) 11/28/18 01:01 POC ABG pCO2 30.6 (35-45) L 12/01/18 10:39 ABG pCO2 48.8 mm Hg 11/28/18 01:01 POC ABG pO2 95 (80-105) 12/01/18 10:39 ABG pO2 65.7 mm Hg (80.0-90.0) L 11/28/18 01:01 POC ABG HCO3 19.5 (22-26 mml/L) 12/01/18 10:39 ABG HCO3 30.5 mmol/L (20.0-26.0) H 11/28/18 01:01 POC ABG Total CO2 20 (23-27mmol/L) 12/01/18 10:39 POC ABG O2 Sat 98 12/01/18 10:39 ABG O2 Saturation 91.3 % (95.0-99.0) L 11/28/18 01:01 ABG O2 Content 22.2 (0.0-44) 11/28/18 01:01 POC ABG Base Excess -5 ((-2) - (+3)mmol/L) 12/01/18 10:39 ABG Base Excess 4.6 mmol/L (-2.0-3.0) H 11/28/18 01:01 ABG Hemoglobin 18.0 gm/dl (12.0-16.0) H 11/28/18 01:01 ABG Carboxyhemoglobin 3.1 % (0.0-5.0) 11/28/18 01:01 ABG Methemoglobin 0.5 % (0.0-1.5) 11/28/18 01:01 VBG pH 7.414 (7.320-7.420) 11/28/18 01:01 88.0 % (95.0-99.0) L 11/28/18 01:01 28 % 12/01/18 10:39 Sodium 141 mmol/L (137-145) 12/04/18 06:00 Potassium 4.9 mmol/L (3.6-5.0) 12/04/18 06:00 Chloride 102.5 mmol/L (98-107) 12/04/18 06:00 Carbon Dioxide 26 mmol/L (22-30) 12/04/18 06:00 17 mmol/L 12/04/18 06:00 BUN 22 mg/dL (7-17) H 12/04/18 06:00 1.5 mg/dL (0.7-1.2) H 12/04/18 06:00 Estimated GFR 47 ml/min 12/04/18 06:00 15 % 12/04/18 06:00 Glucose 352 mg/dL (65-100) H 12/04/18 06:00 POC Glucose 315 (70-105) H 12/04/18 07:57 12.5 % (4-6) H 11/28/18 01:01 Lactic Acid 5.00 mmol/L (0.7-2.0) H* 11/28/18 15:14 Calcium 8.9 mg/dL (8.4-10.2) 12/04/18 06:00 Phosphorus 3.30 mg/dL (2.5-4.5) 11/30/18 07:18 Magnesium 3.20 mg/dL (1.7-2.3) H 11/30/18 07:18 2.00 mg/dL (0.1-1.2) H 12/02/18 04:45 1.3 mg/dL (0-0.2) H 11/28/18 01:01 1.1 mg/dL 11/28/18 01:01 AST 156 units/L (5-40) H 12/02/18 04:45 ALT 183 units/L (7-56) H 12/02/18 04:45 225 units/L (35-129) H 12/02/18 04:45 30.0 umol/L (25-60) 11/28/18 01:01 976 units/L (91-180) H 12/01/18 13:45 228 units/L (30-135) H 11/28/18 01:01 0.030 ng/mL (0.00-0.029) H D 11/28/18 07:50 7.70 mg/dL (0.00-1.30) H 12/03/18 14:33 5.9 g/dL (6.3-8.2) L D 12/02/18 04:45 2.6 g/dL (3.9-5) L 12/02/18 04:45 0.8 % 12/02/18 04:45 Triglycerides 356 mg/dL (2-149) H 11/28/18 01:01 Cholesterol 200 mg/dL (50-199) H 11/28/18 01:01 125 mg/dL (50-130) 11/28/18 01:01 39 mg/dL (40-59) L 11/28/18 01:01 5.12 % 11/28/18 01:01 TSH 0.288 mlU/mL (0.270-4.200) 11/28/18 01:01 HCG, Quant < 2 mIU/mL (0-4) 11/28/18 01:01 Straw (Yellow) 11/28/18 00:37 Clear (Clear) 11/28/18 00:37 7.0 (5.0-7.0) 18 00:37 Ur Specific Somers 1.023 (1.003-1.030) 11/28/18 00:37 30 mg/dl mg/dL (Negative) 11/28/18 00:37 >=500 mg/dL (Negative) 11/28/18 00:37 Tr mg/dL (Negative) 11/28/18 00:37 Sm (Negative) 11/28/18 00:37 Neg (Negative) 11/28/18 00:37 Neg (Negative) 11/28/18 00:37 < 2.0 mg/dL (<2.0) 11/28/18 00:37 Ur Leukocyte Esterase Neg (Negative) 11/28/18 00:37 < 1.0 /HPF (0.0-6.0) 11/28/18 00:37 1.0 /HPF (0.0-6.0) 11/28/18 00:37 None seen (None Seen) 11/29/18 13:40 117.4 mg/dL (0.1-20.0) H 11/29/18 13:40 53 mmol/L 11/29/18 13:40 120 mg/dL (5-11.8) H 11/29/18 13:40 Urine HCG, Qual Negative (Negative) 11/28/18 Unknown Salicylates < 0.3 mg/dL (2.8-20.0) L 11/28/18 01:01 Presumptive negative 11/28/18 00:37 Presumptive negative 11/28/18 00:37 Acetaminophen < 5.0 ug/mL (10.0-30.0) L 11/28/18 01:01 Ur Barbiturates Screen Presumptive negative 11/28/18 00:37 Ur Phencyclidine Scrn Presumptive negative 11/28/18 00:37 Ur Amphetamines Screen Presumptive negative 11/28/18 00:37 U Benzodiazepines Scrn Presumptive negative 11/28/18 00:37 Presumptive negative 11/28/18 00:37 U Marijuana (THC) Screen Presumptive negative 11/28/18 00:37 Disclamer 11/28/18 00:37 Plasma/Serum Alcohol < 0.01 % (0-0.07) 11/28/18 01:01 13 IU/ml (0-13) 12/03/18 14:33 Heparin-induced Plt Ab Negative (Negative) 11/29/18 16:46 UF Heparin High Dose 18 % Release 11/29/18 16:46 GALE UFH Low Dose 0.1 12 % Release 11/29/18 16:46 GALE UFH Low Dose 0.5 16 % Release 11/29/18 16:46 Blood Type B POSITIVE 11/28/18 01:01 Antibody Screen Negative 11/28/18 01:01 Active Medications - Current Medications Current Medications: Generic Name Dose Route Start Last Admin Trade Name Freq PRN Reason Stop Dose Admin Acetaminophen 650 mg 11/28/18 03:02 Tylenol PO Q4H PRN Pain MILD(1-3)/Fever >100.5/TURPIN Alprazolam 0.25 mg 11/30/18 01:09 12/03/18 21:23 Xanax PO 0.25 mg Q8H PRN Administration Anxiety Amiodarone HCl 200 mg 12/02/18 12:00 12/04/18 10:40 Cordarone PO 200 mg BID VIOLA Administration Amitriptyline HCl 25 mg 11/29/18 22:00 12/03/18 21:23 Elavil PO 25 mg HS VIOLA Administration Aspirin 81 mg 11/29/18 10:00 12/04/18 10:40 Baby Aspirin PO 81 mg QDAY VIOLA Administration Dextrose 0 ml 11/28/18 02:19 D50w (25gm) Syringe IV PRN PRN Hypoglycemia Fluticasone Propionate 50 mcg 11/29/18 10:00 12/04/18 10:41 Flonase NS 50 mcg BID VIOLA Administration Hydralazine HCl 10 mg 11/28/18 03:41 Apresoline IV Q6HR PRN Blood Pressure Hydrophilic Ointment 1 applic 11/30/18 11:55 Vaseline Lip Therapy TP DIRECT PRN DRY LIPS Argatroban 250 mg/ Sodium 250 mls @ 3.682 mls/hr 11/29/18 13:00 12/04/18 00:26 Chloride IV 0.5 mcg/kg/min TITR VIOLA 3.682 mls/hr Administration Protocol 0.5 MCG/KG/MIN Sodium Chloride 1,000 mls @ 125 mls/hr 12/02/18 13:00 12/03/18 11:24 Nacl 0.9% 1000 Ml IV 0 mls/hr DIRECT VIOLA Infusion Insulin Human Isoph/Insulin Regular 15 unit 12/02/18 17:00 12/04/18 07:59 Humulin 70/30 SUB-Q 15 unit BIDDIAB VIOLA Administration Insulin Human Lispro 0 unit 11/30/18 09:00 12/04/18 07:58 Humalog SUB-Q 1 unit ACHS VIOLA Administration Protocol Metoprolol Tartrate 25 mg 11/30/18 14:00 12/04/18 06:08 Lopressor PO 25 mg Q8HR VIOLA Administration Montelukast Sodium 10 mg 11/29/18 18:00 12/03/18 17:34 Singulair PO 10 mg QPM VIOLA Administration Morphine Sulfate 2 mg 11/28/18 03:02 12/04/18 00:27 Morphine IV 2 mg Q4H PRN Administration Pain, Moderate (4-6) Nitroglycerin 0.75 inch 11/29/18 14:00 12/04/18 10:39 Nitro-Bid 2% TP 0.75 inch QIDNTG VIOLA Administration Protocol Ondansetron HCl 4 mg 11/28/18 03:02 Zofran IV Q8H PRN Nausea And Vomiting Pantoprazole Sodium 40 mg 11/29/18 10:00 12/04/18 10:40 Protonix PO 40 mg QDAY VIOLA Administration Pentoxifylline 400 mg 11/29/18 13:00 12/04/18 10:40 Trental PO 400 mg Q12HR VIOLA Administration Prednisone 50 mg 11/29/18 10:00 12/04/18 10:40 Deltasone PO 50 mg QDAY VIOLA Administration Sodium Chloride 10 ml 11/28/18 10:00 12/04/18 10:42 Sodium Chloride Flush Syringe 10 Ml IV 10 ml BID VIOLA Administration Sodium Chloride 10 ml 11/28/18 03:02 Sodium Chloride Flush Syringe 10 Ml IV PRN PRN LINE FLUSH Nutrition/Malnutrition Assess - Dietary Evaluation Nutrition/Malnutrition Findings: Nutrition Notes Start: 11/29/18 14:34 Freq: Status: Active Protocol: Document 11/29/18 14:35 LM (Rec: 11/29/18 14:40 LM [id number]) Nutrition Notes Need for Assessment generated from: Education Initial or Follow up Brief Note Current Diagnosis Diabetes,Hypertension Subjective/Other Information Consult for DM education. #1 Nutrition Diagnosis Food and nutrition-related knowledge deficit Etiology No prior DM diet education As Evidenced by Signs and Symptoms Pt statement of needing DM diet education, HGB A1C of 12. 5, BG 203 Nutrition Intervention Teaching Recipient Patient Learning Readiness Good Teaching Methods Discussion,Handout Education Handouts Provided Carbohydrate Counting for People with Diabetes RD phone number provided Yes Patient aware of follow up options Yes Revisit per MD consult or patient Sign Off request:
--- NOTE | 2018-12-04 11:25 | Progress Note ---
Assessment and Plan - Patient Problems (1) Acute kidney injury Current Visit: Yes Status: Acute Plan to address problem: Kidney function is now worsening. Suspect Pre-renal azotemia vs Acute tubular necrosis secondary to hypotension. Continue volume repletion. Follow up electrolytes and renal function (2) Hypotension Current Visit: Yes Status: Acute Plan to address problem: Gentle volume patient monitoring closely for signs of volume overload. (3) Hyperkalemia Current Visit: Yes Status: Acute Plan to address problem: Hyperkalemia on presentation improved with medical management. Follow-up electrolytes (4) Hypernatremia Current Visit: Yes Status: Acute Plan to address problem: Hypernatremia secondary to free water losses. Replace free water and follow-up sodium (5) Hyperosmolar hyperglycemic coma due to diabetes mellitus without ketoa cidosis Current Visit: Yes Status: Acute Plan to address problem: Steroid induced hyperglycemia/newly diagnosed type 2 diabetes mellitus. Blood sugar control by primary attending (6) Acrocyanosis Current Visit: Yes Status: Acute Plan to address problem: Etiology uncertain. May be related to scleroderma. Arterial Duplex shows that Diffuse peripheral vascular disease in both lower extremities with occlusive disease of the left anterior tibial and dorsalis pedis arteries. Distal disease in the left hand. 1. RODNEY showed no Thrombus. 2. Vascular input appreciated: Possible severe vasospasm the setting of scleroderma. 3. Possible heparin-induced thrombocytopenia: Patient is on Direct Thrombin inhibitor being managed by support clerk pending HIT antibody. (7) Transaminasemia Current Visit: Yes Status: Acute Plan to address problem: Probable ischemic hepatitis. Follow-up liver function tests (8) Heart failure with reduced ejection fraction Current Visit: Yes Status: Acute Plan to address problem: Intravenous fluids stopped. Monitor volume status. Subjective Date of service: 12/04/18 Principal diagnosis: thrombosis Interval history: Patient seen lying in bed. Still complains of pain in her feet and hands. Boyfriend is at the bedside. No nausea or vomiting Objective - Exam Narrative Exam: Obese young -[place] female lying in bed in no acute distress HEENT: NCAT, pink oral mucous membrane Neck: Supple, no venous distention CVS: S1S2 RRR with no murmur, rub or gallop Chest: Clear to auscultation Abdomen: obese, soft, nontender, no organomegaly, bowel sounds are present Extremities: No edema, cool extremities with ischemic changes in toes, and ischemic left middle distal phalanx and nail bed Neuro: Awake, alert no focal deficits - Vital Signs Vital signs: Vital Signs - 12hr 12/03/18 12/03/18 12/03/18 23:21 23:30 23:41 Temperature Pulse Rate 89 89 89 Pulse Rate [ From Monitor] Respiratory Rate Blood Pressure 136/92 138/98 138/98 O2 Sat by Pulse 100 100 100 Oximetry 12/03/18 12/04/18 12/04/18 23:51 00:00 00:11 Temperature Pulse Rate 89 90 90 Pulse Rate [ From Monitor] Respiratory Rate Blood Pressure 137/93 138/92 138/92 O2 Sat by Pulse 100 100 100 Oximetry 12/04/18 12/04/18 12/04/18 00:21 00:30 00:41 Temperature Pulse Rate 91 H 92 H 93 H Pulse Rate [ From Monitor] Respiratory Rate Blood Pressure 131/87 132/88 132/88 O2 Sat by Pulse 100 100 100 Oximetry 12/04/18 12/04/18 12/04/18 00:51 01:00 01:11 Temperature Pulse Rate 90 90 90 Pulse Rate [ From Monitor] Respiratory Rate Blood Pressure 132/91 129/89 129/89 O2 Sat by Pulse 100 100 100 Oximetry 12/04/18 12/04/18 12/04/18 01:21 01:30 01:41 Temperature Pulse Rate 90 90 89 Pulse Rate [ From Monitor] Respiratory Rate Blood Pressure 131/84 127/88 127/88 O2 Sat by Pulse 100 100 100 Oximetry 12/04/18 12/04/18 12/04/18 01:51 02:00 02:11 Temperature Pulse Rate 89 89 89 Pulse Rate [ 94 H From Monitor] Respiratory 22 Rate Blood Pressure 126/89 135/86 131/84 O2 Sat by Pulse 100 100 100 Oximetry 12/04/18 12/04/18 12/04/18 02:21 02:30 02:41 Temperature Pulse Rate 90 90 89 Pulse Rate [ From Monitor] Respiratory Rate Blood Pressure 124/85 134/88 134/88 O2 Sat by Pulse 100 100 100 Oximetry 12/04/18 12/04/18 12/04/18 02:51 03:00 03:08 Temperature 97.5 F L Pulse Rate 90 102 H Pulse Rate [ From Monitor] Respiratory Rate Blood Pressure 122/84 123/85 O2 Sat by Pulse 100 100 Oximetry 12/04/18 12/04/18 12/04/18 03:11 03:21 03:30 Temperature Pulse Rate 88 87 86 Pulse Rate [ From Monitor] Respiratory Rate Blood Pressure 123/85 121/85 126/85 O2 Sat by Pulse 100 100 100 Oximetry 12/04/18 12/04/18 12/04/18 03:41 03:51 04:00 Temperature Pulse Rate 88 87 86 Pulse Rate [ 94 H From Monitor] Respiratory 22 Rate Blood Pressure 126/85 118/90 125/87 O2 Sat by Pulse 100 100 100 Oximetry 12/04/18 12/04/18 12/04/18 04:11 04:21 04:30 Temperature Pulse Rate 85 86 85 Pulse Rate [ From Monitor] Respiratory Rate Blood Pressure 125/87 123/82 124/84 O2 Sat by Pulse 100 100 100 Oximetry 12/04/18 12/04/18 12/04/18 04:41 04:51 05:00 Temperature Pulse Rate 86 85 84 Pulse Rate [ From Monitor] Respiratory Rate Blood Pressure 124/84 125/85 121/87 O2 Sat by Pulse 100 100 100 Oximetry 12/04/18 12/04/18 12/04/18 05:11 05:21 05:30 Temperature Pulse Rate 84 84 83 Pulse Rate [ From Monitor] Respiratory Rate Blood Pressure 121/87 118/84 128/87 O2 Sat by Pulse 100 100 100 Oximetry 12/04/18 12/04/18 12/04/18 05:41 05:51 06:00 Temperature Pulse Rate 82 83 84 Pulse Rate [ 94 H From Monitor] Respiratory 22 Rate Blood Pressure 128/87 120/86 128/86 O2 Sat by Pulse 100 100 100 Oximetry 12/04/18 12/04/18 12/04/18 06:08 06:09 06:11 Temperature Pulse Rate 85 84 85 Pulse Rate [ From Monitor] Respiratory Rate Blood Pressure 128/86 128/86 128/86 O2 Sat by Pulse 100 Oximetry 12/04/18 12/04/18 12/04/18 06:21 06:30 06:41 Temperature Pulse Rate 87 85 84 Pulse Rate [ From Monitor] Respiratory Rate Blood Pressure 140/70 121/77 121/77 O2 Sat by Pulse 100 100 100 Oximetry 12/04/18 12/04/18 12/04/18 06:51 07:00 07:11 Temperature Pulse Rate 84 83 82 Pulse Rate [ From Monitor] Respiratory Rate Blood Pressure 113/79 116/82 116/82 O2 Sat by Pulse 100 100 100 Oximetry 12/04/18 12/04/18 12/04/18 07:21 07:30 07:41 Temperature Pulse Rate 82 82 81 Pulse Rate [ From Monitor] Respiratory Rate Blood Pressure 123/85 119/81 119/81 O2 Sat by Pulse 100 100 100 Oximetry 12/04/18 12/04/18 12/04/18 07:51 08:00 08:11 Temperature 97.6 F Pulse Rate 81 81 81 Pulse Rate [ 81 From Monitor] Respiratory 20 Rate Blood Pressure 119/81 101/77 101/77 O2 Sat by Pulse 100 100 100 Oximetry 12/04/18 10:39 Temperature Pulse Rate 74 Pulse Rate [ From Monitor] Respiratory Rate Blood Pressure 118/77 O2 Sat by Pulse Oximetry - Lab 12/04/18 06:00 12/04/18 06:00 Most recent lab results ABG pH 7.414 pH Units (7.350-7.450) 11/28/18 01:01 ABG pCO2 48.8 mm Hg 11/28/18 01:01 ABG pO2 65.7 mm Hg (80.0-90.0) L 11/28/18 01:01 ABG HCO3 30.5 mmol/L (20.0-26.0) H 11/28/18 01:01 ABG O2 Saturation 91.3 % (95.0-99.0) L 11/28/18 01:01 Calcium 8.9 mg/dL (8.4-10.2) 12/04/18 06:00 Phosphorus 3.30 mg/dL (2.5-4.5) 11/30/18 07:18 Magnesium 3.20 mg/dL (1.7-2.3) H 11/30/18 07:18 117.4 mg/dL (0.1-20.0) H 11/29/18 13:40 53 mmol/L 11/29/18 13:40 120 mg/dL (5-11.8) H 11/29/18 13:40 Medications & Allergies - Medications Allergies/Adverse Reactions: Allergies lisinopril Adverse Reaction (Severe, Verified 12/17/13 19:00) SORE THROAT;PERSISTENT COUGH Home Medications: Home Medications Medication Instructions Recorded Confirmed Last Taken Type Aspirin [Aspirin BABY CHEW TAB] 81 mg PO QDAY 11/28/18 11/29/18 11/26/18 History Fluticasone [Flonase] 1 spray NS BID 11/28/18 11/28/18 Unknown History Furosemide [Lasix TAB] 40 mg PO BID 11/28/18 11/28/18 Unknown History Ibuprofen [Motrin] 600 mg PO Q6H PRN 11/28/18 11/28/18 Unknown History Montelukast [Singulair] 10 mg PO QPM 11/28/18 11/28/18 Unknown History Mycophenolate [Cellcept] 500 mg PO BID 11/28/18 11/28/18 Unknown History Mycophenolate [Cellcept] 500 mg PO BID PRN MDD 2 TABS 11/28/18 11/28/18 Unknown History Pantoprazole [Protonix] 40 mg PO QDAY 11/28/18 11/28/18 Unknown History Sacubitril/Valsartan [Entresto 1 each PO BID 11/28/18 11/28/18 Unknown History 49-51 mg] predniSONE [Deltasone] 50 mg PO QDAY 11/28/18 11/28/18 Unknown History raNITIdine HCl [Zantac] 150 mg PO BID 11/28/18 11/28/18 Unknown History Amitriptyline [Elavil] 25 mg PO HS 11/29/18 11/29/18 11/26/18 History Aspirin [Adult Aspirin] 81 mg PO ONCE 11/29/18 11/29/18 11/26/18 History Entresto 49-51 mg 49 mg PO BID 11/29/18 11/29/18 11/26/18 History HYDROcodone/APAP 5-325 5 mg PO Q6HR PRN 11/29/18 11/29/18 Unknown History Active Medications: Generic Name Dose Route Start Last Admin Trade Name Freq PRN Reason Stop Dose Admin Acetaminophen 650 mg 11/28/18 03:02 Tylenol PO Q4H PRN Pain MILD(1-3)/Fever >100.5/TURPIN Alprazolam 0.25 mg 11/30/18 01:09 12/03/18 21:23 Xanax PO 0.25 mg Q8H PRN Administration Anxiety Amiodarone HCl 200 mg 12/02/18 12:00 12/04/18 10:40 Cordarone PO 200 mg BID VIOLA Administration Amitriptyline HCl 25 mg 11/29/18 22:00 12/03/18 21:23 Elavil PO 25 mg HS VIOLA Administration Aspirin 81 mg 11/29/18 10:00 12/04/18 10:40 Baby Aspirin PO 81 mg QDAY VIOLA Administration Dextrose 0 ml 11/28/18 02:19 D50w (25gm) Syringe IV PRN PRN Hypoglycemia Fluticasone Propionate 50 mcg 11/29/18 10:00 12/04/18 10:41 Flonase NS 50 mcg BID VIOLA Administration Hydralazine HCl 10 mg 11/28/18 03:41 Apresoline IV Q6HR PRN Blood Pressure Hydrophilic Ointment 1 applic 11/30/18 11:55 Vaseline Lip Therapy TP DIRECT PRN DRY LIPS Argatroban 250 mg/ Sodium 250 mls @ 3.682 mls/hr 11/29/18 13:00 12/04/18 00:26 Chloride IV 0.5 mcg/kg/min TITR VIOLA 3.682 mls/hr Administration Protocol 0.5 MCG/KG/MIN Sodium Chloride 1,000 mls @ 125 mls/hr 12/02/18 13:00 12/03/18 11:24 Nacl 0.9% 1000 Ml IV 0 mls/hr DIRECT VIOLA Infusion Insulin Human Isoph/Insulin Regular 15 unit 12/02/18 17:00 12/04/18 07:59 Humulin 70/30 SUB-Q 15 unit BIDDIAB VIOLA Administration Insulin Human Lispro 0 unit 11/30/18 09:00 12/04/18 07:58 Humalog SUB-Q 1 unit ACHS VIOLA Administration Protocol Metoprolol Tartrate 25 mg 11/30/18 14:00 12/04/18 06:08 Lopressor PO 25 mg Q8HR VIOLA Administration Montelukast Sodium 10 mg 11/29/18 18:00 12/03/18 17:34 Singulair PO 10 mg QPM VIOLA Administration Morphine Sulfate 2 mg 11/28/18 03:02 12/04/18 00:27 Morphine IV 2 mg Q4H PRN Administration Pain, Moderate (4-6) Nitroglycerin 0.75 inch 11/29/18 14:00 12/04/18 10:39 Nitro-Bid 2% TP 0.75 inch QIDNTG VIOLA Administration Protocol Ondansetron HCl 4 mg 11/28/18 03:02 Zofran IV Q8H PRN Nausea And Vomiting Pantoprazole Sodium 40 mg 11/29/18 10:00 12/04/18 10:40 Protonix PO 40 mg QDAY VIOLA Administration Pentoxifylline 400 mg 11/29/18 13:00 12/04/18 10:40 Trental PO 400 mg Q12HR VIOLA Administration Prednisone 50 mg 11/29/18 10:00 12/04/18 10:40 Deltasone PO 50 mg QDAY VIOLA Administration Sodium Chloride 10 ml 11/28/18 10:00 12/04/18 10:42 Sodium Chloride Flush Syringe 10 Ml IV 10 ml BID VIOLA Administration Sodium Chloride 10 ml 11/28/18 03:02 Sodium Chloride Flush Syringe 10 Ml IV PRN PRN LINE FLUSH
--- NOTE | 2018-12-04 12:00 | Progress Note ---
Subjective Date of service: 12/04/18 Principal diagnosis: thrombosis Interval history: HR and BP stable at this time, now new recommendations from CV perspective will cont current medical therapy for now A small mobile echogenic density noted on the PM wire on the RA side - this is likely a small thrombus given negative blood cultures. This is on the right side of the heart and therefore has nothing to do with her upper extremity process. Typically we recommend systemic anticoagulation for 3 months then re-imaging to document resolution of the small clot. 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 by arterial doppler Sleep apnea on CPAP Interstitial Lung disease Hypertension Chronic systolic heart failure, EF of 20-25% Presence of AICD on 11/28/18 patient had multiple shocks from her ICD for runs of VT/VF Elevated troponin Probably secondary to demand ischemia due to acute process NSVT on tele currently resolved Objective Vital Signs Temp Pulse Pulse Resp BP Pulse Ox 12/04/18 10:39 74 118/77 12/04/18 08:11 81 101/77 100 12/04/18 08:00 97.6 F 81 81 20 101/77 100 12/04/18 07:51 81 119/81 100 12/04/18 07:41 81 119/81 100 12/04/18 07:30 82 119/81 100 12/04/18 07:21 82 123/85 100 12/04/18 07:11 82 116/82 100 12/04/18 07:00 83 116/82 100 12/04/18 06:51 84 113/79 100 12/04/18 06:41 84 121/77 100 12/04/18 06:30 85 121/77 100 12/04/18 06:21 87 140/70 100 12/04/18 06:11 85 128/86 100 12/04/18 06:09 84 128/86 12/04/18 06:08 85 128/86 12/04/18 06:00 84 94 H 22 128/86 100 12/04/18 05:51 83 120/86 100 12/04/18 05:41 82 128/87 100 12/04/18 05:30 83 128/87 100 12/04/18 05:21 84 118/84 100 12/04/18 05:11 84 121/87 100 12/04/18 05:00 84 121/87 100 12/04/18 04:51 85 125/85 100 12/04/18 04:41 86 124/84 100 12/04/18 04:30 85 124/84 100 12/04/18 04:21 86 123/82 100 12/04/18 04:11 85 125/87 100 12/04/18 04:00 86 94 H 22 125/87 100 12/04/18 03:51 87 118/90 100 12/04/18 03:41 88 126/85 100 12/04/18 03:30 86 126/85 100 12/04/18 03:21 87 121/85 100 12/04/18 03:11 88 123/85 100 12/04/18 03:08 97.5 F L 12/04/18 03:00 102 H 123/85 100 12/04/18 02:51 90 122/84 100 12/04/18 02:41 89 134/88 100 12/04/18 02:30 90 134/88 100 12/04/18 02:21 90 124/85 100 12/04/18 02:11 89 131/84 100 12/04/18 02:00 89 94 H 22 135/86 100 12/04/18 01:51 89 126/89 100 12/04/18 01:41 89 127/88 100 12/04/18 01:30 90 127/88 100 12/04/18 01:21 90 131/84 100 12/04/18 01:11 90 129/89 100 12/04/18 01:00 90 129/89 100 12/04/18 00:51 90 132/91 100 12/04/18 00:41 93 H 132/88 100 12/04/18 00:30 92 H 132/88 100 12/04/18 00:21 91 H 131/87 100 12/04/18 00:11 90 138/92 100 12/04/18 00:00 90 138/92 100 12/03/18 23:51 89 137/93 100 12/03/18 23:41 89 138/98 100 12/03/18 23:30 89 138/98 100 12/03/18 23:21 89 136/92 100 12/03/18 23:11 89 129/94 100 12/03/18 23:00 90 138/93 100 12/03/18 22:51 89 128/93 100 12/03/18 22:41 90 129/94 100 12/03/18 22:30 90 129/94 100 12/03/18 22:21 94 H 135/95 100 12/03/18 22:11 91 H 132/91 100 12/03/18 22:05 93 H 22 100 12/03/18 22:00 92 H 94 H 22 134/93 100 12/03/18 21:50 97 H 132/91 100 12/03/18 21:41 92 H 140/86 100 12/03/18 21:33 96 H 140/86 100 12/03/18 21:30 92 H 140/86 100 12/03/18 21:24 93 H 132/92 12/03/18 21:21 100 H 132/92 100 12/03/18 21:11 93 H 130/83 100 12/03/18 21:00 97 H 130/83 100 12/03/18 20:51 91 H 150/87 100 12/03/18 20:41 92 H 142/88 100 12/03/18 20:30 92 H 142/88 100 12/03/18 20:21 92 H 136/84 100 12/03/18 20:11 94 H 127/93 100 12/03/18 20:01 94 H 127/93 100 12/03/18 20:00 94 H 22 100 12/03/18 19:51 93 H 110/77 100 12/03/18 19:41 93 H 213/143 100 12/03/18 19:31 92 H 256/132 100 12/03/18 19:21 92 H 140/95 100 12/03/18 19:11 93 H 145/101 100 12/03/18 19:01 92 H 125/71 100 12/03/18 18:51 93 H 97/61 100 12/03/18 18:41 92 H 129/78 100 12/03/18 18:31 94 H 138/72 100 12/03/18 18:21 96 H 114/73 100 12/03/18 18:11 99 H 110/70 97 12/03/18 18:01 94 H 100/57 100 12/03/18 17:51 92 H 108/64 100 12/03/18 17:41 91 H 101/67 100 12/03/18 17:36 91 H 101/67 12/03/18 17:31 90 105/67 100 12/03/18 17:21 89 98/50 100 12/03/18 17:11 92 H 92/71 100 12/03/18 17:01 91 H 119/67 100 12/03/18 17:00 96 H 12/03/18 16:51 91 H 92/69 100 12/03/18 16:41 90 96/78 100 12/03/18 16:31 91 H 96/74 100 12/03/18 16:21 96 H 95/75 100 12/03/18 16:10 92 H 116/79 100 12/03/18 16:01 94 H 120/63 100 12/03/18 15:56 100 12/03/18 15:51 89 92/71 100 12/03/18 15:41 96 H 106/71 100 12/03/18 15:31 91 H 119/69 100 12/03/18 15:20 92 H 116/87 100 12/03/18 15:10 90 119/80 100 12/03/18 15:01 90 120/74 100 12/03/18 14:51 90 86/56 100 12/03/18 14:41 86 58/17 100 12/03/18 14:31 83 139/70 100 12/03/18 14:21 86 121/76 84 12/03/18 14:11 86 256/172 99 12/03/18 14:01 87 121/90 74 L 12/03/18 13:51 86 45/22 90 12/03/18 13:41 86 114/63 92 12/03/18 13:31 82 132/62 68 L 12/03/18 13:21 81 108/66 100 12/03/18 13:11 92 H 108/66 91 12/03/18 13:01 81 115/80 100 12/03/18 12:51 80 122/67 100 12/03/18 12:41 88 133/85 92 12/03/18 12:31 81 118/82 100 12/03/18 12:20 79 125/83 100 12/03/18 12:12 77 12/03/18 12:10 79 115/78 100 12/03/18 12:01 78 116/79 100 12/03/18 12:00 76 20 100 - Physical Examination General: Other (Chronically ill) HEENT: Positive: PERRL Neck: Positive: trachea midline Cardiac: Positive: Reg Rate and Rhythm, S1/S2 Lungs: Positive: clear to auscultation Neuro: Positive: Grossly Intact Abdomen: Positive: Soft - Labs and Meds Coagulation 12/04/18 Range/Units 06:00 APTT 51.3 H (24.2-36.6) Sec. CBC 12/04/18 Range/Units 06:00 WBC 18.1 H (4.5-11.0) K/mm3 RBC 5.73 H (3.65-5.03) M/mm3 Hgb 16.0 H (10.1-14.3) gm/dl Hct 49.0 H (30.3-42.9) % Plt Count 194 (140-440) K/mm3 Lymph # 0.2 L (1.2-5.4) K/mm3 [place] # 1.9 H (0.0-0.8) K/mm3 Eos # 0.0 (0.0-0.4) K/mm3 Baso # 0.1 (0.0-0.1) K/mm3 Comprehensive Metabolic Panel 12/04/18 Range/Units 06:00 Sodium 141 (137-145) mmol/L Potassium 4.9 (3.6-5.0) mmol/L Chloride 102.5 (98-107) mmol/L Carbon Dioxide 26 (22-30) mmol/L BUN 22 H (7-17) mg/dL Creatinine 1.5 H (0.7-1.2) mg/dL Glucose 352 H (65-100) mg/dL Calcium 8.9 (8.4-10.2) mg/dL
--- NOTE | 2018-12-04 13:12 | Progress Note ---
Subjective Date of service: 12/04/18 Principal diagnosis: thrombosis Interval history: patient with ischemic toes bilaterally and ischemic left 3rd finger patient remians stable limbs remain well perfused patient with dry gangrene continue to allow hands and feet to demarcate continue OAC findings consistent with embolic disease no vascular intervention at this time will follow peripherally Objective - Constitutional Vitals: Vital Signs - 12hr 12/04/18 12/04/18 12/04/18 01:11 01:21 01:30 Temperature Pulse Rate 90 90 90 Pulse Rate [ From Monitor] Respiratory Rate Blood Pressure 129/89 131/84 127/88 O2 Sat by Pulse 100 100 100 Oximetry 12/04/18 12/04/18 12/04/18 01:41 01:51 02:00 Temperature Pulse Rate 89 89 89 Pulse Rate [ 94 H From Monitor] Respiratory 22 Rate Blood Pressure 127/88 126/89 135/86 O2 Sat by Pulse 100 100 100 Oximetry 12/04/18 12/04/18 12/04/18 02:11 02:21 02:30 Temperature Pulse Rate 89 90 90 Pulse Rate [ From Monitor] Respiratory Rate Blood Pressure 131/84 124/85 134/88 O2 Sat by Pulse 100 100 100 Oximetry 12/04/18 12/04/18 12/04/18 02:41 02:51 03:00 Temperature Pulse Rate 89 90 102 H Pulse Rate [ From Monitor] Respiratory Rate Blood Pressure 134/88 122/84 123/85 O2 Sat by Pulse 100 100 100 Oximetry 12/04/18 12/04/18 12/04/18 03:08 03:11 03:21 Temperature 97.5 F L Pulse Rate 88 87 Pulse Rate [ From Monitor] Respiratory Rate Blood Pressure 123/85 121/85 O2 Sat by Pulse 100 100 Oximetry 12/04/18 12/04/18 12/04/18 03:30 03:41 03:51 Temperature Pulse Rate 86 88 87 Pulse Rate [ From Monitor] Respiratory Rate Blood Pressure 126/85 126/85 118/90 O2 Sat by Pulse 100 100 100 Oximetry 12/04/18 12/04/18 12/04/18 04:00 04:11 04:21 Temperature Pulse Rate 86 85 86 Pulse Rate [ 94 H From Monitor] Respiratory 22 Rate Blood Pressure 125/87 125/87 123/82 O2 Sat by Pulse 100 100 100 Oximetry 12/04/18 12/04/18 12/04/18 04:30 04:41 04:51 Temperature Pulse Rate 85 86 85 Pulse Rate [ From Monitor] Respiratory Rate Blood Pressure 124/84 124/84 125/85 O2 Sat by Pulse 100 100 100 Oximetry 12/04/18 12/04/18 12/04/18 05:00 05:11 05:21 Temperature Pulse Rate 84 84 84 Pulse Rate [ From Monitor] Respiratory Rate Blood Pressure 121/87 121/87 118/84 O2 Sat by Pulse 100 100 100 Oximetry 12/04/18 12/04/18 12/04/18 05:30 05:41 05:51 Temperature Pulse Rate 83 82 83 Pulse Rate [ From Monitor] Respiratory Rate Blood Pressure 128/87 128/87 120/86 O2 Sat by Pulse 100 100 100 Oximetry 12/04/18 12/04/18 12/04/18 06:00 06:08 06:09 Temperature Pulse Rate 84 85 84 Pulse Rate [ 94 H From Monitor] Respiratory 22 Rate Blood Pressure 128/86 128/86 128/86 O2 Sat by Pulse 100 Oximetry 12/04/18 12/04/18 12/04/18 06:11 06:21 06:30 Temperature Pulse Rate 85 87 85 Pulse Rate [ From Monitor] Respiratory Rate Blood Pressure 128/86 140/70 121/77 O2 Sat by Pulse 100 100 100 Oximetry 12/04/18 12/04/18 12/04/18 06:41 06:51 07:00 Temperature Pulse Rate 84 84 83 Pulse Rate [ From Monitor] Respiratory Rate Blood Pressure 121/77 113/79 116/82 O2 Sat by Pulse 100 100 100 Oximetry 12/04/18 12/04/18 12/04/18 07:11 07:21 07:30 Temperature Pulse Rate 82 82 82 Pulse Rate [ From Monitor] Respiratory Rate Blood Pressure 116/82 123/85 119/81 O2 Sat by Pulse 100 100 100 Oximetry 12/04/18 12/04/18 12/04/18 07:41 07:51 08:00 Temperature 97.6 F Pulse Rate 81 81 81 Pulse Rate [ 81 From Monitor] Respiratory 20 Rate Blood Pressure 119/81 119/81 101/77 O2 Sat by Pulse 100 100 100 Oximetry 12/04/18 12/04/18 12/04/18 08:11 08:21 08:30 Temperature Pulse Rate 81 80 80 Pulse Rate [ From Monitor] Respiratory Rate Blood Pressure 101/77 109/82 116/80 O2 Sat by Pulse 100 100 100 Oximetry 12/04/18 12/04/18 12/04/18 08:41 08:51 09:00 Temperature Pulse Rate 80 80 81 Pulse Rate [ From Monitor] Respiratory Rate Blood Pressure 116/80 116/80 124/87 O2 Sat by Pulse 100 100 100 Oximetry 12/04/18 12/04/18 12/04/18 09:11 09:21 09:30 Temperature Pulse Rate 80 80 80 Pulse Rate [ From Monitor] Respiratory Rate Blood Pressure 124/87 118/78 127/86 O2 Sat by Pulse 100 99 100 Oximetry 12/04/18 12/04/18 12/04/18 09:41 09:51 10:00 Temperature Pulse Rate 83 80 78 Pulse Rate [ From Monitor] Respiratory Rate Blood Pressure 127/86 116/86 117/82 O2 Sat by Pulse 100 100 100 Oximetry 12/04/18 12/04/18 12/04/18 10:11 10:21 10:30 Temperature Pulse Rate 75 74 75 Pulse Rate [ From Monitor] Respiratory Rate Blood Pressure 117/82 116/86 118/77 O2 Sat by Pulse 100 100 100 Oximetry 12/04/18 12/04/18 12/04/18 10:39 10:41 10:51 Temperature Pulse Rate 74 74 74 Pulse Rate [ From Monitor] Respiratory Rate Blood Pressure 118/77 118/77 107/72 O2 Sat by Pulse 100 100 Oximetry 12/04/18 12/04/18 12/04/18 11:00 11:11 11:21 Temperature Pulse Rate 76 77 76 Pulse Rate [ From Monitor] Respiratory 37 H 38 H Rate Blood Pressure 114/73 114/73 115/81 O2 Sat by Pulse 100 100 98 Oximetry 12/04/18 12/04/18 12/04/18 11:30 11:41 11:50 Temperature Pulse Rate 76 80 81 Pulse Rate [ From Monitor] Respiratory 19 21 29 H Rate Blood Pressure 119/82 119/82 127/84 O2 Sat by Pulse 100 100 100 Oximetry 12/04/18 12/04/18 12/04/18 12:00 12:11 12:21 Temperature 97.9 F Pulse Rate 80 80 81 Pulse Rate [ 78 From Monitor] Respiratory 27 H 19 17 Rate Blood Pressure 126/78 126/78 117/83 O2 Sat by Pulse 100 100 100 Oximetry 12/04/18 12/04/18 12:30 12:41 Temperature Pulse Rate 82 81 Pulse Rate [ From Monitor] Respiratory 26 H 27 H Rate Blood Pressure 113/76 113/76 O2 Sat by Pulse 100 100 Oximetry - Labs CBC & Chem 7: 12/04/18 06:00 12/04/18 06:00 Labs: Abnormal lab results 12/03/18 12/03/18 12/04/18 Range/Units 14:33 16:23 05:21 WBC (4.5-11.0) K/mm3 RBC (3.65-5.03) M/mm3 Hgb (10.1-14.3) gm/dl Hct (30.3-42.9) % RDW (13.2-15.2) % Lymph % (Auto) (13.4-35.0) % [place] % (Auto) (0.0-7.3) % Lymph # (1.2-5.4) K/mm3 [place] # (0.0-0.8) K/mm3 Seg Neutrophils % (40.0-70.0) % Seg Neutrophils # (1.8-7.7) K/mm3 APTT (24.2-36.6) Sec. BUN (7-17) mg/dL Creatinine (0.7-1.2) mg/dL Glucose (65-100) mg/dL POC Glucose 180 H 297 H (70-105) C-Reactive Protein 7.70 H (0.00-1.30) mg/dL 12/04/18 12/04/18 12/04/18 Range/Units 06:00 06:00 06:00 WBC 18.1 H (4.5-11.0) K/mm3 RBC 5.73 H (3.65-5.03) M/mm3 Hgb 16.0 H (10.1-14.3) gm/dl Hct 49.0 H (30.3-42.9) % RDW 19.5 H (13.2-15.2) % Lymph % (Auto) 1.3 L (13.4-35.0) % [place] % (Auto) 10.5 H (0.0-7.3) % Lymph # 0.2 L (1.2-5.4) K/mm3 [place] # 1.9 H (0.0-0.8) K/mm3 Seg Neutrophils % 87.9 H (40.0-70.0) % Seg Neutrophils # 15.9 H (1.8-7.7) K/mm3 APTT 51.3 H (24.2-36.6) Sec. BUN 22 H (7-17) mg/dL Creatinine 1.5 H (0.7-1.2) mg/dL Glucose 352 H (65-100) mg/dL POC Glucose (70-105) C-Reactive Protein (0.00-1.30) mg/dL 12/04/18 12/04/18 Range/Units 07:57 11:56 WBC (4.5-11.0) K/mm3 RBC (3.65-5.03) M/mm3 Hgb (10.1-14.3) gm/dl Hct (30.3-42.9) % RDW (13.2-15.2) % Lymph % (Auto) (13.4-35.0) % [place] % (Auto) (0.0-7.3) % Lymph # (1.2-5.4) K/mm3 [place] # (0.0-0.8) K/mm3 Seg Neutrophils % (40.0-70.0) % Seg Neutrophils # (1.8-7.7) K/mm3 APTT (24.2-36.6) Sec. BUN (7-17) mg/dL Creatinine (0.7-1.2) mg/dL Glucose (65-100) mg/dL POC Glucose 315 H 303 H (70-105) C-Reactive Protein (0.00-1.30) mg/dL Medications & Allergies - Medications Allergies/Adverse Reactions: Allergies lisinopril Adverse Reaction (Severe, Verified 12/17/13 19:00) SORE THROAT;PERSISTENT COUGH Home Medications: Home Medications Medication Instructions Recorded Confirmed Last Taken Type Aspirin [Aspirin BABY CHEW TAB] 81 mg PO QDAY 11/28/18 11/29/18 11/26/18 History Fluticasone [Flonase] 1 spray NS BID 11/28/18 11/28/18 Unknown History Furosemide [Lasix TAB] 40 mg PO BID 11/28/18 11/28/18 Unknown History Ibuprofen [Motrin] 600 mg PO Q6H PRN 11/28/18 11/28/18 Unknown History Montelukast [Singulair] 10 mg PO QPM 11/28/18 11/28/18 Unknown History Mycophenolate [Cellcept] 500 mg PO BID 11/28/18 11/28/18 Unknown History Mycophenolate [Cellcept] 500 mg PO BID PRN MDD 2 TABS 11/28/18 11/28/18 Unknown History Pantoprazole [Protonix] 40 mg PO QDAY 11/28/18 11/28/18 Unknown History Sacubitril/Valsartan [Entresto 1 each PO BID 11/28/18 11/28/18 Unknown History 49-51 mg] predniSONE [Deltasone] 50 mg PO QDAY 11/28/18 11/28/18 Unknown History raNITIdine HCl [Zantac] 150 mg PO BID 11/28/18 11/28/18 Unknown History Amitriptyline [Elavil] 25 mg PO HS 11/29/18 11/29/18 11/26/18 History Aspirin [Adult Aspirin] 81 mg PO ONCE 11/29/18 11/29/18 11/26/18 History Entresto 49-51 mg 49 mg PO BID 11/29/18 11/29/18 11/26/18 History HYDROcodone/APAP 5-325 5 mg PO Q6HR PRN 11/29/18 11/29/18 Unknown History Active Medications: Generic Name Dose Route Start Last Admin Trade Name Freq PRN Reason Stop Dose Admin Acetaminophen 650 mg 11/28/18 03:02 Tylenol PO Q4H PRN Pain MILD(1-3)/Fever >100.5/TURPIN Alprazolam 0.25 mg 11/30/18 01:09 12/03/18 21:23 Xanax PO 0.25 mg Q8H PRN Administration Anxiety Amiodarone HCl 200 mg 12/02/18 12:00 12/04/18 10:40 Cordarone PO 200 mg BID VIOLA Administration Amitriptyline HCl 25 mg 11/29/18 22:00 12/03/18 21:23 Elavil PO 25 mg HS VIOLA Administration Aspirin 81 mg 11/29/18 10:00 12/04/18 10:40 Baby Aspirin PO 81 mg QDAY VIOLA Administration Dextrose 0 ml 11/28/18 02:19 D50w (25gm) Syringe IV PRN PRN Hypoglycemia Fluticasone Propionate 50 mcg 11/29/18 10:00 12/04/18 10:41 Flonase NS 50 mcg BID VIOLA Administration Hydralazine HCl 10 mg 11/28/18 03:41 Apresoline IV Q6HR PRN Blood Pressure Hydrophilic Ointment 1 applic 11/30/18 11:55 Vaseline Lip Therapy TP DIRECT PRN DRY LIPS Argatroban 250 mg/ Sodium 250 mls @ 3.682 mls/hr 11/29/18 13:00 12/04/18 00:26 Chloride IV 0.5 mcg/kg/min TITR VIOLA 3.682 mls/hr Administration Protocol 0.5 MCG/KG/MIN Sodium Chloride 1,000 mls @ 125 mls/hr 12/02/18 13:00 12/03/18 11:24 Nacl 0.9% 1000 Ml IV 0 mls/hr DIRECT VIOLA Infusion Insulin Human Isoph/Insulin Regular 15 unit 12/02/18 17:00 12/04/18 07:59 Humulin 70/30 SUB-Q 15 unit BIDDIAB VIOLA Administration Insulin Human Lispro 0 unit 11/30/18 09:00 12/04/18 11:57 Humalog SUB-Q 6 unit ACHS VIOLA Administration Protocol Metoprolol Tartrate 25 mg 11/30/18 14:00 12/04/18 06:08 Lopressor PO 25 mg Q8HR VIOLA Administration Montelukast Sodium 10 mg 11/29/18 18:00 12/03/18 17:34 Singulair PO 10 mg QPM VIOLA Administration Morphine Sulfate 2 mg 11/28/18 03:02 12/04/18 00:27 Morphine IV 2 mg Q4H PRN Administration Pain, Moderate (4-6) Nitroglycerin 0.75 inch 11/29/18 14:00 12/04/18 10:39 Nitro-Bid 2% TP 0.75 inch QIDNTG VIOLA Administration Protocol Ondansetron HCl 4 mg 11/28/18 03:02 Zofran IV Q8H PRN Nausea And Vomiting Pantoprazole Sodium 40 mg 11/29/18 10:00 12/04/18 10:40 Protonix PO 40 mg QDAY VIOLA Administration Pentoxifylline 400 mg 11/29/18 13:00 12/04/18 10:40 [place] PO 400 mg Q12HR VIOLA Administration Prednisone 50 mg 11/29/18 10:00 12/04/18 10:40 Deltasone PO 50 mg QDAY VIOLA Administration Sodium Chloride 10 ml 11/28/18 10:00 12/04/18 10:42 Sodium Chloride Flush Syringe 10 Ml IV 10 ml BID VIOLA Administration Sodium Chloride 10 ml 11/28/18 03:02 Sodium Chloride Flush Syringe 10 Ml IV PRN PRN LINE FLUSH
--- NOTE | 2018-12-04 16:24 | Progress Note ---
Assessment and Plan Imp: 1. NICMP 2. NSVT 3. EDGARDO 2/2 volume depletion 4. HONK, resolved 5. Metabolic encephalopathy, resolved 6. Systemic sclerosis 7. CATRACHO Rec: 1. CPAP QHS; I am okay with her bringing in her home CPAP unit 2. 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 IVFs 4. Ambulation if tolerated 5. Can leave ICU pulmonary-rodriguez Plan of care reviewed w/ patient, she understands/agrees Subjective Date of service: 12/04/18 Principal diagnosis: thrombosis Interval history: Pt. off drips. On RA. Denies SOB or chest pain. Having some pain at the areas of ischemic extremities. No other current complaints. Active Medications Acetaminophen (Tylenol) 650 mg PO Q4H PRN PRN Reason: Pain MILD(1-3)/Fever >100.5/TURPIN Alprazolam (Xanax) 0.25 mg PO Q8H PRN PRN Reason: Anxiety Last Admin: 12/03/18 21:23 Dose: 0.25 mg Documented by: Amiodarone HCl (Cordarone) 200 mg PO BID [facility] Last Admin: 12/04/18 10:40 Dose: 200 mg Documented by: Amitriptyline HCl (Elavil) 25 mg PO HS [facility] Last Admin: 12/03/18 21:23 Dose: 25 mg Documented by: Aspirin (Baby Aspirin) 81 mg PO QDAY [facility] Last Admin: 12/04/18 10:40 Dose: 81 mg Documented by: Dextrose (D50w (25gm) Syringe) 0 ml IV PRN PRN PRN Reason: Hypoglycemia Fluticasone Propionate (Flonase) 50 mcg NS BID [facility] Last Admin: 12/04/18 10:41 Dose: 50 mcg Documented by: Hydralazine HCl (Apresoline) 10 mg IV Q6HR PRN PRN Reason: Blood Pressure Hydrophilic Ointment (Vaseline Lip Therapy) 1 applic TP DIRECT PRN PRN Reason: DRY LIPS Argatroban 250 mg/ Sodium (Chloride) 250 mls @ 3.682 mls/hr IV TITR [facility]; Protocol Last Admin: 12/04/18 00:26 Dose: 0.5 mcg/kg/min, 3.682 mls/hr Documented by: Sodium Chloride (Nacl 0.9% 1000 Ml) 1,000 mls @ 125 mls/hr IV DIRECT [facility] Last Infusion: 12/03/18 11:24 Dose: 0 mls/hr Documented by: Insulin Human Isoph/Insulin Regular (Humulin 70/30) 15 unit SUB-Q BIDDIAB [facility] Last Admin: 12/04/18 17:02 Dose: 15 unit Documented by: Insulin Human Lispro (Humalog) 0 unit SUB-Q ACHS [facility]; Protocol Last Admin: 12/04/18 17:01 Dose: 6 unit Documented by: Metoprolol Tartrate (Lopressor) 25 mg PO Q8HR [facility] Last Admin: 12/04/18 14:33 Dose: 25 mg Documented by: Montelukast Sodium (Singulair) 10 mg PO QPM [facility] Last Admin: 12/04/18 17:02 Dose: 10 mg Documented by: Morphine Sulfate (Morphine) 2 mg IV Q4H PRN PRN Reason: Pain, Moderate (4-6) Last Admin: 12/04/18 00:27 Dose: 2 mg Documented by: Nitroglycerin (Nitro-Bid 2%) 0.75 inch TP QIDNTG [facility]; Protocol Last Admin: 12/04/18 17:02 Dose: 0.75 inch Documented by: Ondansetron HCl (Zofran) 4 mg IV Q8H PRN PRN Reason: Nausea And Vomiting Pantoprazole Sodium (Protonix) 40 mg PO QDAY [facility] Last Admin: 12/04/18 10:40 Dose: 40 mg Documented by: Pentoxifylline (Trental) 400 mg PO Q12HR [facility] Last Admin: 12/04/18 10:40 Dose: 400 mg Documented by: Prednisone (Deltasone) 50 mg PO QDAY [facility] Last Admin: 12/04/18 10:40 Dose: 50 mg Documented by: Sodium Chloride (Sodium Chloride Flush Syringe 10 Ml) 10 ml IV BID [facility] Last Admin: 12/04/18 10:42 Dose: 10 ml Documented by: Sodium Chloride (Sodium Chloride Flush Syringe 10 Ml) 10 ml IV PRN PRN PRN Reason: LINE FLUSH Objective Vital Signs - 12hr 12/04/18 12/04/18 12/04/18 04:30 04:41 04:51 Temperature Pulse Rate 85 86 85 Pulse Rate [ From Monitor] Respiratory Rate Blood Pressure 124/84 124/84 125/85 O2 Sat by Pulse 100 100 100 Oximetry 12/04/18 12/04/18 12/04/18 05:00 05:11 05:21 Temperature Pulse Rate 84 84 84 Pulse Rate [ From Monitor] Respiratory Rate Blood Pressure 121/87 121/87 118/84 O2 Sat by Pulse 100 100 100 Oximetry 12/04/18 12/04/18 12/04/18 05:30 05:41 05:51 Temperature Pulse Rate 83 82 83 Pulse Rate [ From Monitor] Respiratory Rate Blood Pressure 128/87 128/87 120/86 O2 Sat by Pulse 100 100 100 Oximetry 12/04/18 12/04/18 12/04/18 06:00 06:08 06:09 Temperature Pulse Rate 84 85 84 Pulse Rate [ 94 H From Monitor] Respiratory 22 Rate Blood Pressure 128/86 128/86 128/86 O2 Sat by Pulse 100 Oximetry 12/04/18 12/04/18 12/04/18 06:11 06:21 06:30 Temperature Pulse Rate 85 87 85 Pulse Rate [ From Monitor] Respiratory Rate Blood Pressure 128/86 140/70 121/77 O2 Sat by Pulse 100 100 100 Oximetry 12/04/18 12/04/18 12/04/18 06:41 06:51 07:00 Temperature Pulse Rate 84 84 83 Pulse Rate [ From Monitor] Respiratory Rate Blood Pressure 121/77 113/79 116/82 O2 Sat by Pulse 100 100 100 Oximetry 12/04/18 12/04/18 12/04/18 07:11 07:21 07:30 Temperature Pulse Rate 82 82 82 Pulse Rate [ From Monitor] Respiratory Rate Blood Pressure 116/82 123/85 119/81 O2 Sat by Pulse 100 100 100 Oximetry 12/04/18 12/04/18 12/04/18 07:41 07:51 08:00 Temperature 97.6 F Pulse Rate 81 81 81 Pulse Rate [ 81 From Monitor] Respiratory 20 Rate Blood Pressure 119/81 119/81 101/77 O2 Sat by Pulse 100 100 100 Oximetry 12/04/18 12/04/18 12/04/18 08:11 08:21 08:30 Temperature Pulse Rate 81 80 80 Pulse Rate [ From Monitor] Respiratory Rate Blood Pressure 101/77 109/82 116/80 O2 Sat by Pulse 100 100 100 Oximetry 12/04/18 12/04/18 12/04/18 08:41 08:51 09:00 Temperature Pulse Rate 80 80 81 Pulse Rate [ From Monitor] Respiratory Rate Blood Pressure 116/80 116/80 124/87 O2 Sat by Pulse 100 100 100 Oximetry 12/04/18 12/04/18 12/04/18 09:11 09:21 09:30 Temperature Pulse Rate 80 80 80 Pulse Rate [ From Monitor] Respiratory Rate Blood Pressure 124/87 118/78 127/86 O2 Sat by Pulse 100 99 100 Oximetry 12/04/18 12/04/18 12/04/18 09:41 09:51 10:00 Temperature Pulse Rate 83 80 78 Pulse Rate [ From Monitor] Respiratory Rate Blood Pressure 127/86 116/86 117/82 O2 Sat by Pulse 100 100 100 Oximetry 12/04/18 12/04/18 12/04/18 10:11 10:21 10:30 Temperature Pulse Rate 75 74 75 Pulse Rate [ From Monitor] Respiratory Rate Blood Pressure 117/82 116/86 118/77 O2 Sat by Pulse 100 100 100 Oximetry 12/04/18 12/04/18 12/04/18 10:39 10:41 10:51 Temperature Pulse Rate 74 74 74 Pulse Rate [ From Monitor] Respiratory Rate Blood Pressure 118/77 118/77 107/72 O2 Sat by Pulse 100 100 Oximetry 12/04/18 12/04/18 12/04/18 11:00 11:11 11:21 Temperature Pulse Rate 76 77 76 Pulse Rate [ From Monitor] Respiratory 37 H 38 H Rate Blood Pressure 114/73 114/73 115/81 O2 Sat by Pulse 100 100 98 Oximetry 12/04/18 12/04/18 12/04/18 11:30 11:41 11:50 Temperature Pulse Rate 76 80 81 Pulse Rate [ From Monitor] Respiratory 19 21 29 H Rate Blood Pressure 119/82 119/82 127/84 O2 Sat by Pulse 100 100 100 Oximetry 12/04/18 12/04/18 12/04/18 12:00 12:11 12:21 Temperature 97.9 F Pulse Rate 80 80 81 Pulse Rate [ 78 From Monitor] Respiratory 27 H 19 17 Rate Blood Pressure 126/78 126/78 117/83 O2 Sat by Pulse 100 100 100 Oximetry 12/04/18 12/04/18 12/04/18 12:30 12:41 14:33 Temperature Pulse Rate 82 81 81 Pulse Rate [ From Monitor] Respiratory 26 H 27 H Rate Blood Pressure 113/76 113/76 110/74 O2 Sat by Pulse 100 100 Oximetry Constitutional: no acute distress, alert Eyes: non-icteric ENT: oropharynx moist Neck: supple Effort: normal Ascultation: Bilateral: clear Cardiovascular: regular rate and rhythm (no mrg) Gastrointestinal: normoactive bowel sounds, non-tender, non-distended, other (obese) Extremities: other (areas of ischemia, extremities) Neurologic: normal mental status, non-focal exam, pupils equal and round, CN II- XII normal Psychiatric: mood appropriate, affect normal CBC and BMP: 12/04/18 06:00 12/04/18 06:00 ABG, PT/INR, D-dimer: ABG POC ABG pH 7.413 (7.35-7.45) 12/01/18 10:39 ABG pH 7.414 pH Units (7.350-7.450) 11/28/18 01:01 POC ABG pCO2 30.6 (35-45) L 12/01/18 10:39 ABG pCO2 48.8 mm Hg 11/28/18 01:01 POC ABG pO2 95 (80-105) 12/01/18 10:39 ABG pO2 65.7 mm Hg (80.0-90.0) L 11/28/18 01:01 POC ABG HCO3 19.5 (22-26 mml/L) 12/01/18 10:39 POC ABG Total CO2 20 (23-27mmol/L) 12/01/18 10:39 POC ABG O2 Sat 98 12/01/18 10:39 ABG O2 Saturation 91.3 % (95.0-99.0) L 11/28/18 01:01 PT/INR, D-dimer PT 15.6 Sec. (12.2-14.9) H 11/28/18 01:01 INR 1.27 (0.87-1.13) H 11/28/18 01:01 Abnormal lab findings: Abnormal Labs 11/27/18 11/28/18 11/28/18 23:40 01:01 01:01 WBC 15.1 H RBC 6.19 H Hgb 17.4 H Hct 54.6 H RDW 19.6 H Lymph % (Auto) 6.3 L [place] % (Auto) Lymph # 0.9 L [place] # 0.9 H Seg Neutrophils % 87.2 H Seg Neuts % (Manual) Lymphocytes % (Manual) Nucleated RBC % Seg Neutrophils # 13.2 H Seg Neutrophils # Man Lymphocytes # (Manual) Monocytes # (Manual) PT 15.6 H INR 1.27 H APTT POC ABG pCO2 ABG pO2 ABG HCO3 ABG O2 Saturation ABG Base Excess ABG Hemoglobin Oxyhemoglobin Sodium Potassium Chloride Carbon Dioxide BUN Creatinine Glucose POC Glucose > 500 H Hemoglobin A1c Lactic Acid Calcium Phosphorus Magnesium Total Bilirubin Direct Bilirubin AST ALT Alkaline Phosphatase Lactate Dehydrogenase Total Creatine Kinase Troponin T C-Reactive Protein Total Protein Albumin Triglycerides Cholesterol HDL Cholesterol Urine Creatinine Urine Total Protein Salicylates Acetaminophen 11/28/18 11/28/18 11/28/18 01:01 01:01 01:01 WBC RBC Hgb Hct RDW Lymph % (Auto) [place] % (Auto) Lymph # [place] # Seg Neutrophils % Seg Neuts % (Manual) Lymphocytes % (Manual) Nucleated RBC % Seg Neutrophils # Seg Neutrophils # Man Lymphocytes # (Manual) Monocytes # (Manual) PT INR APTT POC ABG pCO2 ABG pO2 ABG HCO3 ABG O2 Saturation ABG Base Excess ABG Hemoglobin Oxyhemoglobin Sodium Potassium 5.9 H Chloride 92.9 L Carbon Dioxide BUN 20 H Creatinine 1.3 H Glucose 1088 H* POC Glucose Hemoglobin A1c Lactic Acid 3.50 H* Calcium Phosphorus Magnesium Total Bilirubin 2.40 H Direct Bilirubin 1.3 H AST ALT Alkaline Phosphatase 225 H Lactate Dehydrogenase Total Creatine Kinase Troponin T 0.030 H C-Reactive Protein Total Protein Albumin 3.8 L Triglycerides 356 H Cholesterol 200 H HDL Cholesterol 39 L Urine Creatinine Urine Total Protein Salicylates < 0.3 L Acetaminophen 11/28/18 11/28/18 11/28/18 01:01 01:01 01:01 WBC RBC Hgb Hct RDW Lymph % (Auto) [place] % (Auto) Lymph # [place] # Seg Neutrophils % Seg Neuts % (Manual) Lymphocytes % (Manual) Nucleated RBC % Seg Neutrophils # Seg Neutrophils # Man Lymphocytes # (Manual) Monocytes # (Manual) PT INR APTT POC ABG pCO2 ABG pO2 65.7 L ABG HCO3 30.5 H ABG O2 Saturation 91.3 L ABG Base Excess 4.6 H ABG Hemoglobin 18.0 H Oxyhemoglobin 88.0 L Sodium Potassium Chloride Carbon Dioxide BUN Creatinine Glucose POC Glucose Hemoglobin A1c Lactic Acid Calcium Phosphorus Magnesium 3.70 H Total Bilirubin Direct Bilirubin AST ALT Alkaline Phosphatase Lactate Dehydrogenase Total Creatine Kinase 228 H Troponin T C-Reactive Protein Total Protein Albumin Triglycerides Cholesterol HDL Cholesterol Urine Creatinine Urine Total Protein Salicylates Acetaminophen < 5.0 L 11/28/18 11/28/18 11/28/18 01:01 02:39 03:17 WBC RBC Hgb Hct RDW Lymph % (Auto) [place] % (Auto) Lymph # [place] # Seg Neutrophils % Seg Neuts % (Manual) Lymphocytes % (Manual) Nucleated RBC % Seg Neutrophils # Seg Neutrophils # Man Lymphocytes # (Manual) Monocytes # (Manual) PT INR APTT POC ABG pCO2 ABG pO2 ABG HCO3 ABG O2 Saturation ABG Base Excess ABG Hemoglobin Oxyhemoglobin Sodium Potassium Chloride Carbon Dioxide BUN Creatinine Glucose POC Glucose > 500 H Hemoglobin A1c 12.5 H Lactic Acid 3.00 H* Calcium Phosphorus Magnesium Total Bilirubin Direct Bilirubin AST ALT Alkaline Phosphatase Lactate Dehydrogenase Total Creatine Kinase Troponin T C-Reactive Protein Total Protein Albumin Triglycerides Cholesterol HDL Cholesterol Urine Creatinine Urine Total Protein Salicylates Acetaminophen 11/28/18 11/28/18 11/28/18 03:17 03:17 03:35 WBC RBC Hgb Hct RDW Lymph % (Auto) [place] % (Auto) Lymph # [place] # Seg Neutrophils % Seg Neuts % (Manual) Lymphocytes % (Manual) Nucleated RBC % Seg Neutrophils # Seg Neutrophils # Man Lymphocytes # (Manual) Monocytes # (Manual) PT INR APTT POC ABG pCO2 ABG pO2 ABG HCO3 ABG O2 Saturation ABG Base Excess ABG Hemoglobin Oxyhemoglobin Sodium Potassium 6.1 H* Chloride 97.6 L Carbon Dioxide BUN 20 H Creatinine Glucose 927 H* POC Glucose > 500 H Hemoglobin A1c Lactic Acid Calcium Phosphorus 4.70 H Magnesium 3.70 H Total Bilirubin Direct Bilirubin AST ALT Alkaline Phosphatase Lactate Dehydrogenase Total Creatine Kinase Troponin T C-Reactive Protein Total Protein Albumin Triglycerides Cholesterol HDL Cholesterol Urine Creatinine Urine Total Protein Salicylates Acetaminophen 11/28/18 11/28/18 11/28/18 04:43 05:35 06:30 WBC RBC Hgb Hct RDW Lymph % (Auto) [place] % (Auto) Lymph # [place] # Seg Neutrophils % Seg Neuts % (Manual) Lymphocytes % (Manual) Nucleated RBC % Seg Neutrophils # Seg Neutrophils # Man Lymphocytes # (Manual) Monocytes # (Manual) PT INR APTT POC ABG pCO2 ABG pO2 ABG HCO3 ABG O2 Saturation ABG Base Excess ABG Hemoglobin Oxyhemoglobin Sodium Potassium Chloride Carbon Dioxide BUN Creatinine Glucose POC Glucose > 500 H > 500 H > 500 H Hemoglobin A1c Lactic Acid Calcium Phosphorus Magnesium Total Bilirubin Direct Bilirubin AST ALT Alkaline Phosphatase Lactate Dehydrogenase Total Creatine Kinase Troponin T C-Reactive Protein Total Protein Albumin Triglycerides Cholesterol HDL Cholesterol Urine Creatinine Urine Total Protein Salicylates Acetaminophen 11/28/18 11/28/18 11/28/18 07:50 07:50 07:50 WBC RBC Hgb Hct RDW Lymph % (Auto) [place] % (Auto) Lymph # [place] # Seg Neutrophils % Seg Neuts % (Manual) Lymphocytes % (Manual) Nucleated RBC % Seg Neutrophils # Seg Neutrophils # Man Lymphocytes # (Manual) Monocytes # (Manual) PT INR APTT POC ABG pCO2 ABG pO2 ABG HCO3 ABG O2 Saturation ABG Base Excess ABG Hemoglobin Oxyhemoglobin Sodium 156 H D Potassium 3.3 L D Chloride 112.8 H Carbon Dioxide BUN Creatinine Glucose 409 H POC Glucose Hemoglobin A1c Lactic Acid 6.20 H* Calcium Phosphorus Magnesium Total Bilirubin Direct Bilirubin AST ALT Alkaline Phosphatase Lactate Dehydrogenase Total Creatine Kinase Troponin T 0.030 H D C-Reactive Protein Total Protein Albumin Triglycerides Cholesterol HDL Cholesterol Urine Creatinine Urine Total Protein Salicylates Acetaminophen 11/28/18 11/28/18 11/28/18 10:33 12:52 14:11 WBC RBC Hgb Hct RDW Lymph % (Auto) [place] % (Auto) Lymph # [place] # Seg Neutrophils % Seg Neuts % (Manual) Lymphocytes % (Manual) Nucleated RBC % Seg Neutrophils # Seg Neutrophils # Man Lymphocytes # (Manual) Monocytes # (Manual) PT INR APTT POC ABG pCO2 ABG pO2 ABG HCO3 ABG O2 Saturation ABG Base Excess ABG Hemoglobin Oxyhemoglobin Sodium Potassium Chloride Carbon Dioxide BUN Creatinine Glucose POC Glucose 411 H 204 H 119 H Hemoglobin A1c Lactic Acid Calcium Phosphorus Magnesium Total Bilirubin Direct Bilirubin AST ALT Alkaline Phosphatase Lactate Dehydrogenase Total Creatine Kinase Troponin T C-Reactive Protein Total Protein Albumin Triglycerides Cholesterol HDL Cholesterol Urine Creatinine Urine Total Protein Salicylates Acetaminophen 11/28/18 11/28/18 11/28/18 14:15 15:14 15:14 WBC RBC Hgb Hct RDW Lymph % (Auto) [place] % (Auto) Lymph # [place] # Seg Neutrophils % Seg Neuts % (Manual) Lymphocytes % (Manual) Nucleated RBC % Seg Neutrophils # Seg Neutrophils # Man Lymphocytes # (Manual) Monocytes # (Manual) PT INR APTT POC ABG pCO2 ABG pO2 ABG HCO3 ABG O2 Saturation ABG Base Excess ABG Hemoglobin Oxyhemoglobin Sodium 151 H Potassium Chloride 112.4 H Carbon Dioxide 21 L D BUN Creatinine Glucose 167 H POC Glucose Hemoglobin A1c Lactic Acid 4.80 H* 5.00 H* Calcium Phosphorus Magnesium Total Bilirubin Direct Bilirubin AST ALT Alkaline Phosphatase Lactate Dehydrogenase Total Creatine Kinase Troponin T C-Reactive Protein Total Protein Albumin Triglycerides Cholesterol HDL Cholesterol Urine Creatinine Urine Total Protein Salicylates Acetaminophen 11/28/18 11/28/18 11/28/18 15:22 16:22 17:11 WBC RBC Hgb Hct RDW Lymph % (Auto) [place] % (Auto) Lymph # [place] # Seg Neutrophils % Seg Neuts % (Manual) Lymphocytes % (Manual) Nucleated RBC % Seg Neutrophils # Seg Neutrophils # Man Lymphocytes # (Manual) Monocytes # (Manual) PT INR APTT POC ABG pCO2 ABG pO2 ABG HCO3 ABG O2 Saturation ABG Base Excess ABG Hemoglobin Oxyhemoglobin Sodium Potassium Chloride Carbon Dioxide BUN Creatinine Glucose POC Glucose 114 H 120 H 183 H Hemoglobin A1c Lactic Acid Calcium Phosphorus Magnesium Total Bilirubin Direct Bilirubin AST ALT Alkaline Phosphatase Lactate Dehydrogenase Total Creatine Kinase Troponin T C-Reactive Protein Total Protein Albumin Triglycerides Cholesterol HDL Cholesterol Urine Creatinine Urine Total Protein Salicylates Acetaminophen 11/28/18 11/28/18 11/28/18 17:17 18:18 19:26 WBC RBC Hgb Hct RDW Lymph % (Auto) [place] % (Auto) Lymph # [place] # Seg Neutrophils % Seg Neuts % (Manual) Lymphocytes % (Manual) Nucleated RBC % Seg Neutrophils # Seg Neutrophils # Man Lymphocytes # (Manual) Monocytes # (Manual) PT INR APTT POC ABG pCO2 ABG pO2 ABG HCO3 ABG O2 Saturation ABG Base Excess ABG Hemoglobin Oxyhemoglobin Sodium 151 H Potassium Chloride 112.9 H Carbon Dioxide 21 L BUN Creatinine Glucose 265 H POC Glucose 269 H 243 H Hemoglobin A1c Lactic Acid Calcium Phosphorus Magnesium Total Bilirubin Direct Bilirubin AST ALT Alkaline Phosphatase Lactate Dehydrogenase Total Creatine Kinase Troponin T C-Reactive Protein Total Protein Albumin Triglycerides Cholesterol HDL Cholesterol Urine Creatinine Urine Total Protein Salicylates Acetaminophen 11/28/18 11/28/18 11/29/18 20:45 21:44 05:55 WBC 29.7 H RBC 5.93 H Hgb 16.6 H Hct 51.0 H RDW 19.7 H Lymph % (Auto) [place] % (Auto) Lymph # [place] # Seg Neutrophils % Seg Neuts % (Manual) 93.0 H Lymphocytes % (Manual) 4.0 L Nucleated RBC % Seg Neutrophils # Seg Neutrophils # Man 27.6 H Lymphocytes # (Manual) Monocytes # (Manual) 0.9 H PT INR APTT POC ABG pCO2 ABG pO2 ABG HCO3 ABG O2 Saturation ABG Base Excess ABG Hemoglobin Oxyhemoglobin Sodium Potassium Chloride Carbon Dioxide BUN Creatinine Glucose POC Glucose 177 H 124 H Hemoglobin A1c Lactic Acid Calcium Phosphorus Magnesium Total Bilirubin Direct Bilirubin AST ALT Alkaline Phosphatase Lactate Dehydrogenase Total Creatine Kinase Troponin T C-Reactive Protein Total Protein Albumin Triglycerides Cholesterol HDL Cholesterol Urine Creatinine Urine Total Protein Salicylates Acetaminophen 11/29/18 11/29/18 11/29/18 06:42 07:36 09:08 WBC RBC Hgb Hct RDW Lymph % (Auto) [place] % (Auto) Lymph # [place] # Seg Neutrophils % Seg Neuts % (Manual) Lymphocytes % (Manual) Nucleated RBC % Seg Neutrophils # Seg Neutrophils # Man Lymphocytes # (Manual) Monocytes # (Manual) PT INR APTT POC ABG pCO2 ABG pO2 ABG HCO3 ABG O2 Saturation ABG Base Excess ABG Hemoglobin Oxyhemoglobin Sodium 152 H Potassium 5.4 H Chloride 110.6 H Carbon Dioxide 20 L BUN 20 H Creatinine 1.6 H Glucose 237 H POC Glucose 118 H 146 H Hemoglobin A1c Lactic Acid Calcium Phosphorus Magnesium Total Bilirubin 3.80 H Direct Bilirubin AST 351 H ALT 123 H Alkaline Phosphatase 222 H Lactate Dehydrogenase Total Creatine Kinase Troponin T C-Reactive Protein Total Protein Albumin 3.5 L Triglycerides Cholesterol HDL Cholesterol Urine Creatinine Urine Total Protein Salicylates Acetaminophen 11/29/18 11/29/18 11/29/18 11:00 11:44 13:40 WBC RBC Hgb Hct RDW Lymph % (Auto) [place] % (Auto) Lymph # [place] # Seg Neutrophils % Seg Neuts % (Manual) Lymphocytes % (Manual) Nucleated RBC % Seg Neutrophils # Seg Neutrophils # Man Lymphocytes # (Manual) Monocytes # (Manual) PT INR APTT POC ABG pCO2 ABG pO2 ABG HCO3 ABG O2 Saturation ABG Base Excess ABG Hemoglobin Oxyhemoglobin Sodium 155 H Potassium 5.8 H Chloride 110.1 H Carbon Dioxide 15 L BUN 21 H Creatinine 1.4 H Glucose 204 H POC Glucose 203 H Hemoglobin A1c Lactic Acid Calcium Phosphorus Magnesium Total Bilirubin 3.70 H Direct Bilirubin AST 361 H ALT 125 H Alkaline Phosphatase 227 H Lactate Dehydrogenase Total Creatine Kinase Troponin T C-Reactive Protein Total Protein Albumin 3.4 L Triglycerides Cholesterol HDL Cholesterol Urine Creatinine 117.4 H Urine Total Protein 120 H Salicylates Acetaminophen 11/29/18 11/29/18 11/29/18 16:29 16:46 16:46 WBC RBC Hgb Hct RDW Lymph % (Auto) [place] % (Auto) Lymph # [place] # Seg Neutrophils % Seg Neuts % (Manual) Lymphocytes % (Manual) Nucleated RBC % Seg Neutrophils # Seg Neutrophils # Man Lymphocytes # (Manual) Monocytes # (Manual) PT INR APTT 49.5 H POC ABG pCO2 ABG pO2 ABG HCO3 ABG O2 Saturation ABG Base Excess ABG Hemoglobin Oxyhemoglobin Sodium 148 H Potassium Chloride 108.3 H Carbon Dioxide 21 L BUN 22 H Creatinine 1.4 H Glucose 152 H POC Glucose 158 H Hemoglobin A1c Lactic Acid Calcium Phosphorus Magnesium Total Bilirubin Direct Bilirubin AST ALT Alkaline Phosphatase Lactate Dehydrogenase Total Creatine Kinase Troponin T C-Reactive Protein Total Protein Albumin Triglycerides Cholesterol HDL Cholesterol Urine Creatinine Urine Total Protein Salicylates Acetaminophen 11/29/18 11/29/18 11/30/18 22:02 23:58 05:51 WBC RBC Hgb Hct RDW Lymph % (Auto) [place] % (Auto) Lymph # [place] # Seg Neutrophils % Seg Neuts % (Manual) Lymphocytes % (Manual) Nucleated RBC % Seg Neutrophils # Seg Neutrophils # Man Lymphocytes # (Manual) Monocytes # (Manual) PT INR APTT 63.2 H* POC ABG pCO2 ABG pO2 ABG HCO3 ABG O2 Saturation ABG Base Excess ABG Hemoglobin Oxyhemoglobin Sodium Potassium Chloride Carbon Dioxide BUN Creatinine Glucose POC Glucose 183 H 156 H Hemoglobin A1c Lactic Acid Calcium Phosphorus Magnesium Total Bilirubin Direct Bilirubin AST ALT Alkaline Phosphatase Lactate Dehydrogenase Total Creatine Kinase Troponin T C-Reactive Protein Total Protein Albumin Triglycerides Cholesterol HDL Cholesterol Urine Creatinine Urine Total Protein Salicylates Acetaminophen 11/30/18 11/30/18 11/30/18 07:18 07:58 09:40 WBC 28.8 H RBC 6.58 H Hgb 18.2 H Hct 57.2 H* D RDW 19.3 H Lymph % (Auto) [place] % (Auto) Lymph # [place] # Seg Neutrophils % Seg Neuts % (Manual) Lymphocytes % (Manual) Nucleated RBC % Seg Neutrophils # Seg Neutrophils # Man Lymphocytes # (Manual) Monocytes # (Manual) PT INR APTT POC ABG pCO2 ABG pO2 ABG HCO3 ABG O2 Saturation ABG Base Excess ABG Hemoglobin Oxyhemoglobin Sodium 150 H Potassium Chloride 110.3 H Carbon Dioxide 20 L BUN Creatinine Glucose 149 H POC Glucose 190 H Hemoglobin A1c Lactic Acid Calcium Phosphorus Magnesium 3.20 H Total Bilirubin 3.70 H Direct Bilirubin AST 480 H ALT 213 H Alkaline Phosphatase 258 H Lactate Dehydrogenase Total Creatine Kinase Troponin T C-Reactive Protein Total Protein Albumin 3.4 L Triglycerides Cholesterol HDL Cholesterol Urine Creatinine Urine Total Protein Salicylates Acetaminophen 11/30/18 11/30/18 11/30/18 11:24 12:17 16:22 WBC RBC Hgb Hct RDW Lymph % (Auto) [place] % (Auto) Lymph # [place] # Seg Neutrophils % Seg Neuts % (Manual) Lymphocytes % (Manual) Nucleated RBC % Seg Neutrophils # Seg Neutrophils # Man Lymphocytes # (Manual) Monocytes # (Manual) PT INR APTT 62.1 H* POC ABG pCO2 ABG pO2 ABG HCO3 ABG O2 Saturation ABG Base Excess ABG Hemoglobin Oxyhemoglobin Sodium Potassium Chloride Carbon Dioxide BUN Creatinine Glucose POC Glucose 242 H 165 H Hemoglobin A1c Lactic Acid Calcium Phosphorus Magnesium Total Bilirubin Direct Bilirubin AST ALT Alkaline Phosphatase Lactate Dehydrogenase Total Creatine Kinase Troponin T C-Reactive Protein Total Protein Albumin Triglycerides Cholesterol HDL Cholesterol Urine Creatinine Urine Total Protein Salicylates Acetaminophen 11/30/18 12/01/18 12/01/18 21:32 05:32 05:32 WBC 24.7 H RBC 6.30 H Hgb 17.8 H Hct 54.2 H RDW 19.2 H Lymph % (Auto) [place] % (Auto) Lymph # [place] # Seg Neutrophils % Seg Neuts % (Manual) 87.0 H Lymphocytes % (Manual) 10.0 L Nucleated RBC % 2.0 H Seg Neutrophils # Seg Neutrophils # Man 21.5 H Lymphocytes # (Manual) Monocytes # (Manual) PT INR APTT 50.0 H POC ABG pCO2 ABG pO2 ABG HCO3 ABG O2 Saturation ABG Base Excess ABG Hemoglobin Oxyhemoglobin Sodium Potassium Chloride Carbon Dioxide BUN Creatinine Glucose POC Glucose 146 H Hemoglobin A1c Lactic Acid Calcium Phosphorus Magnesium Total Bilirubin Direct Bilirubin AST ALT Alkaline Phosphatase Lactate Dehydrogenase Total Creatine Kinase Troponin T C-Reactive Protein Total Protein Albumin Triglycerides Cholesterol HDL Cholesterol Urine Creatinine Urine Total Protein Salicylates Acetaminophen 12/01/18 12/01/18 12/01/18 07:45 10:39 11:35 WBC RBC Hgb Hct RDW Lymph % (Auto) [place] % (Auto) Lymph # [place] # Seg Neutrophils % Seg Neuts % (Manual) Lymphocytes % (Manual) Nucleated RBC % Seg Neutrophils # Seg Neutrophils # Man Lymphocytes # (Manual) Monocytes # (Manual) PT INR APTT POC ABG pCO2 30.6 L ABG pO2 ABG HCO3 ABG O2 Saturation ABG Base Excess ABG Hemoglobin Oxyhemoglobin Sodium Potassium Chloride Carbon Dioxide BUN Creatinine Glucose POC Glucose 179 H 219 H Hemoglobin A1c Lactic Acid Calcium Phosphorus Magnesium Total Bilirubin Direct Bilirubin AST ALT Alkaline Phosphatase Lactate Dehydrogenase Total Creatine Kinase Troponin T C-Reactive Protein Total Protein Albumin Triglycerides Cholesterol HDL Cholesterol Urine Creatinine Urine Total Protein Salicylates Acetaminophen 12/01/18 12/01/18 12/01/18 13:45 13:45 16:33 WBC RBC Hgb Hct RDW Lymph % (Auto) [place] % (Auto) Lymph # [place] # Seg Neutrophils % Seg Neuts % (Manual) Lymphocytes % (Manual) Nucleated RBC % Seg Neutrophils # Seg Neutrophils # Man Lymphocytes # (Manual) Monocytes # (Manual) PT INR APTT POC ABG pCO2 ABG pO2 ABG HCO3 ABG O2 Saturation ABG Base Excess ABG Hemoglobin Oxyhemoglobin Sodium 136 L D Potassium Chloride Carbon Dioxide BUN 29 H Creatinine 1.9 H D Glucose 360 H POC Glucose 166 H Hemoglobin A1c Lactic Acid Calcium 8.0 L Phosphorus Magnesium Total Bilirubin Direct Bilirubin AST ALT Alkaline Phosphatase Lactate Dehydrogenase 976 H Total Creatine Kinase Troponin T C-Reactive Protein Total Protein Albumin Triglycerides Cholesterol HDL Cholesterol Urine Creatinine Urine Total Protein Salicylates Acetaminophen 12/01/18 12/01/18 12/02/18 17:40 20:04 04:45 WBC RBC Hgb Hct RDW Lymph % (Auto) [place] % (Auto) Lymph # [place] # Seg Neutrophils % Seg Neuts % (Manual) Lymphocytes % (Manual) Nucleated RBC % Seg Neutrophils # Seg Neutrophils # Man Lymphocytes # (Manual) Monocytes # (Manual) PT INR APTT 68.9 H* POC ABG pCO2 ABG pO2 ABG HCO3 ABG O2 Saturation ABG Base Excess ABG Hemoglobin Oxyhemoglobin Sodium 135 L Potassium Chloride 96.8 L Carbon Dioxide BUN 33 H Creatinine 2.0 H Glucose 302 H POC Glucose 215 H Hemoglobin A1c Lactic Acid Calcium 8.0 L Phosphorus Magnesium Total Bilirubin 2.00 H Direct Bilirubin AST 156 H ALT 183 H Alkaline Phosphatase 225 H Lactate Dehydrogenase Total Creatine Kinase Troponin T C-Reactive Protein Total Protein 5.9 L D Albumin 2.6 L Triglycerides Cholesterol HDL Cholesterol Urine Creatinine Urine Total Protein Salicylates Acetaminophen 12/02/18 12/02/18 12/02/18 04:45 05:45 07:00 WBC 23.8 H RBC 6.28 H Hgb 17.5 H Hct 53.9 H RDW 19.3 H Lymph % (Auto) [place] % (Auto) Lymph # [place] # Seg Neutrophils % Seg Neuts % (Manual) 83.0 H Lymphocytes % (Manual) 12.0 L Nucleated RBC % Seg Neutrophils # Seg Neutrophils # Man 19.8 H Lymphocytes # (Manual) Monocytes # (Manual) 1.2 H PT INR APTT 51.5 H POC ABG pCO2 ABG pO2 ABG HCO3 ABG O2 Saturation ABG Base Excess ABG Hemoglobin Oxyhemoglobin Sodium Potassium Chloride Carbon Dioxide BUN Creatinine Glucose POC Glucose 336 H Hemoglobin A1c Lactic Acid Calcium Phosphorus Magnesium Total Bilirubin Direct Bilirubin AST ALT Alkaline Phosphatase Lactate Dehydrogenase Total Creatine Kinase Troponin T C-Reactive Protein Total Protein Albumin Triglycerides Cholesterol HDL Cholesterol Urine Creatinine Urine Total Protein Salicylates Acetaminophen 12/02/18 12/02/18 12/02/18 07:30 11:07 16:24 WBC RBC Hgb Hct RDW Lymph % (Auto) [place] % (Auto) Lymph # [place] # Seg Neutrophils % Seg Neuts % (Manual) Lymphocytes % (Manual) Nucleated RBC % Seg Neutrophils # Seg Neutrophils # Man Lymphocytes # (Manual) Monocytes # (Manual) PT INR APTT POC ABG pCO2 ABG pO2 ABG HCO3 ABG O2 Saturation ABG Base Excess ABG Hemoglobin Oxyhemoglobin Sodium Potassium Chloride Carbon Dioxide BUN Creatinine Glucose POC Glucose 143 H 249 H 250 H Hemoglobin A1c Lactic Acid Calcium Phosphorus Magnesium Total Bilirubin Direct Bilirubin AST ALT Alkaline Phosphatase Lactate Dehydrogenase Total Creatine Kinase Troponin T C-Reactive Protein Total Protein Albumin Triglycerides Cholesterol HDL Cholesterol Urine Creatinine Urine Total Protein Salicylates Acetaminophen 12/02/18 12/02/18 12/03/18 19:20 21:44 04:15 WBC 20.8 H RBC 5.79 H Hgb 16.2 H Hct 49.1 H RDW 19.2 H Lymph % (Auto) [place] % (Auto) Lymph # [place] # Seg Neutrophils % Seg Neuts % (Manual) 90.0 H Lymphocytes % (Manual) 4.0 L Nucleated RBC % 6.0 H Seg Neutrophils # Seg Neutrophils # Man 18.7 H Lymphocytes # (Manual) 0.8 L Monocytes # (Manual) 1.2 H PT INR APTT 43.4 H POC ABG pCO2 ABG pO2 ABG HCO3 ABG O2 Saturation ABG Base Excess ABG Hemoglobin Oxyhemoglobin Sodium Potassium Chloride Carbon Dioxide BUN Creatinine Glucose POC Glucose 315 H Hemoglobin A1c Lactic Acid Calcium Phosphorus Magnesium Total Bilirubin Direct Bilirubin AST ALT Alkaline Phosphatase Lactate Dehydrogenase Total Creatine Kinase Troponin T C-Reactive Protein Total Protein Albumin Triglycerides Cholesterol HDL Cholesterol Urine Creatinine Urine Total Protein Salicylates Acetaminophen 12/03/18 12/03/18 12/03/18 04:15 07:35 07:48 WBC RBC Hgb Hct RDW Lymph % (Auto) [place] % (Auto) Lymph # [place] # Seg Neutrophils % Seg Neuts % (Manual) Lymphocytes % (Manual) Nucleated RBC % Seg Neutrophils # Seg Neutrophils # Man Lymphocytes # (Manual) Monocytes # (Manual) PT INR APTT 53.6 H POC ABG pCO2 ABG pO2 ABG HCO3 ABG O2 Saturation ABG Base Excess ABG Hemoglobin Oxyhemoglobin Sodium Potassium Chloride Carbon Dioxide BUN 35 H Creatinine 1.9 H Glucose 231 H POC Glucose 179 H Hemoglobin A1c Lactic Acid Calcium 8.1 L Phosphorus Magnesium Total Bilirubin Direct Bilirubin AST ALT Alkaline Phosphatase Lactate Dehydrogenase Total Creatine Kinase Troponin T C-Reactive Protein Total Protein Albumin Triglycerides Cholesterol HDL Cholesterol Urine Creatinine Urine Total Protein Salicylates Acetaminophen 12/03/18 12/03/18 12/03/18 08:01 11:23 14:33 WBC RBC Hgb Hct RDW Lymph % (Auto) [place] % (Auto) Lymph # [place] # Seg Neutrophils % Seg Neuts % (Manual) Lymphocytes % (Manual) Nucleated RBC % Seg Neutrophils # Seg Neutrophils # Man Lymphocytes # (Manual) Monocytes # (Manual) PT INR APTT POC ABG pCO2 ABG pO2 ABG HCO3 ABG O2 Saturation ABG Base Excess ABG Hemoglobin Oxyhemoglobin Sodium Potassium Chloride Carbon Dioxide BUN Creatinine Glucose POC Glucose 204 H 153 H Hemoglobin A1c Lactic Acid Calcium Phosphorus Magnesium Total Bilirubin Direct Bilirubin AST ALT Alkaline Phosphatase Lactate Dehydrogenase Total Creatine Kinase Troponin T C-Reactive Protein 7.70 H Total Protein Albumin Triglycerides Cholesterol HDL Cholesterol Urine Creatinine Urine Total Protein Salicylates Acetaminophen 12/03/18 12/04/18 12/04/18 16:23 05:21 06:00 WBC 18.1 H RBC 5.73 H Hgb 16.0 H Hct 49.0 H RDW 19.5 H Lymph % (Auto) 1.3 L [place] % (Auto) 10.5 H Lymph # 0.2 L [place] # 1.9 H Seg Neutrophils % 87.9 H Seg Neuts % (Manual) Lymphocytes % (Manual) Nucleated RBC % Seg Neutrophils # 15.9 H Seg Neutrophils # Man Lymphocytes # (Manual) Monocytes # (Manual) PT INR APTT POC ABG pCO2 ABG pO2 ABG HCO3 ABG O2 Saturation ABG Base Excess ABG Hemoglobin Oxyhemoglobin Sodium Potassium Chloride Carbon Dioxide BUN Creatinine Glucose POC Glucose 180 H 297 H Hemoglobin A1c Lactic Acid Calcium Phosphorus Magnesium Total Bilirubin Direct Bilirubin AST ALT Alkaline Phosphatase Lactate Dehydrogenase Total Creatine Kinase Troponin T C-Reactive Protein Total Protein Albumin Triglycerides Cholesterol HDL Cholesterol Urine Creatinine Urine Total Protein Salicylates Acetaminophen 12/04/18 12/04/18 12/04/18 06:00 06:00 07:57 WBC RBC Hgb Hct RDW Lymph % (Auto) [place] % (Auto) Lymph # [place] # Seg Neutrophils % Seg Neuts % (Manual) Lymphocytes % (Manual) Nucleated RBC % Seg Neutrophils # Seg Neutrophils # Man Lymphocytes # (Manual) Monocytes # (Manual) PT INR APTT 51.3 H POC ABG pCO2 ABG pO2 ABG HCO3 ABG O2 Saturation ABG Base Excess ABG Hemoglobin Oxyhemoglobin Sodium Potassium Chloride Carbon Dioxide BUN 22 H Creatinine 1.5 H Glucose 352 H POC Glucose 315 H Hemoglobin A1c Lactic Acid Calcium Phosphorus Magnesium Total Bilirubin Direct Bilirubin AST ALT Alkaline Phosphatase Lactate Dehydrogenase Total Creatine Kinase Troponin T C-Reactive Protein Total Protein Albumin Triglycerides Cholesterol HDL Cholesterol Urine Creatinine Urine Total Protein Salicylates Acetaminophen 12/04/18 12/04/18 11:56 16:06 WBC RBC Hgb Hct RDW Lymph % (Auto) [place] % (Auto) Lymph # [place] # Seg Neutrophils % Seg Neuts % (Manual) Lymphocytes % (Manual) Nucleated RBC % Seg Neutrophils # Seg Neutrophils # Man Lymphocytes # (Manual) Monocytes # (Manual) PT INR APTT POC ABG pCO2 ABG pO2 ABG HCO3 ABG O2 Saturation ABG Base Excess ABG Hemoglobin Oxyhemoglobin Sodium Potassium Chloride Carbon Dioxide BUN Creatinine Glucose POC Glucose 303 H 347 H Hemoglobin A1c Lactic Acid Calcium Phosphorus Magnesium Total Bilirubin Direct Bilirubin AST ALT Alkaline Phosphatase Lactate Dehydrogenase Total Creatine Kinase Troponin T C-Reactive Protein Total Protein Albumin Triglycerides Cholesterol HDL Cholesterol Urine Creatinine Urine Total Protein Salicylates Acetaminophen Chest x-ray: report reviewed, image reviewed
[2018-12-04] MEDS: SINGULAIR PO SCH (17:02)
[2018-12-04] MEDS: XANAX PO PRN (22:03)
[2018-12-04] MEDS: ELAVIL PO SCH (22:03)
[2018-12-05] MEDS: NITRO-BID 2% TP SCH ×4 (06:41→17:39)
[2018-12-05] MEDS: LOPRESSOR PO SCH ×3 (06:42→22:10)
[2018-12-05 07:08] LABS: Basophils # (Auto) 0.1 K/mm3 (0.0-0.1); Basophils % (Auto) 0.3 % (0.0-1.8); Eosinophils % (Auto) 0.1 % (0.0-4.3); Hematocrit 46.1 % (30.3-42.9); Hemoglobin 15.5 gm/dl (10.1-14.3); Lymphocytes # (Auto) 0.5 K/mm3 (1.2-5.4); Lymphocytes % (Auto) 2.6 % (13.4-35.0); Mean Corpuscular HGB Conc 34 % (30-34); Mean Corpuscular Volume 85 fl (79-97); Monocytes # (Auto) 2.8 K/mm3 (0.0-0.8); Monocytes % (Auto) 14.8 % (0.0-7.3); Platelet Count 206 K/mm3 (140-440); Red Blood Count 5.42 M/mm3 (3.65-5.03); Red Cell Distribution Width 19.1 % (13.2-15.2)
[2018-12-05 07:31] LABS: BUN/Creatinine Ratio 15; Blood Urea Nitrogen 18 mg/dL (7-17); Calcium 9.1 mg/dL (8.4-10.2); Hemolysis Index 42
[2018-12-05] MEDS: SODIUM CHLORIDE FLUSH SYRINGE 10 ML IV SCH ×3 (07:34→22:13)
[2018-12-05] MEDS: HumaLOG SUB-Q SCH ×4 (09:31→22:11)
[2018-12-05] MEDS: TRENTAL PO SCH ×2 (09:37→22:10)
[2018-12-05] MEDS: CORDARONE PO SCH ×2 (09:37→22:10)
[2018-12-05] MEDS: PROTONIX PO SCH (09:37)
[2018-12-05] MEDS: ENTRESTO 49-51 MG PO SCH ×2 (09:38→22:10)
[2018-12-05] MEDS: DELTASONE PO SCH (09:38)
[2018-12-05] MEDS: FLONASE NS SCH ×2 (09:41→22:12)
[2018-12-05] MEDS: BABY ASPIRIN PO SCH (09:52)
--- NOTE | 2018-12-05 10:32 | Progress Note ---
Assessment and Plan Assessment and plan: Ischemic lower > upper extremity. Vas Surgery following, Dr. Hernandez Cont. 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 Anti-ccp Hyperosmolar hyperglycemic state (HHS) in a newly diagnosed Diabetes-new onset -Patient was admitted to the ICU on insulin drip, now off Insulin drip -Continue serial BMP level monitoring -Cont. Novolin 70/30 Diabetes mellitus type 2-new onset Sepsis -CT abd/pelvis showed generalized bronchiectasis -Blood cultures no growth Vtach s/p shocked 8 tiemes by AICD, as per interrogation, notes in paper chart Cont. Amiodarone cardiology following, b-ernesto added RODNEY planned for Thursday morning Metabolic encephalopathy, resolved -Head CT scan negative -We'll monitor clinically Acute hypoxic respiratory failure. O2 and BiPAP as clinically indicated. CATRACHO Continue CPAP during sleep and when necessary. Interstitial lung disease. Continue per pulmonary. Systemic sclerosis Elevated troponin -Probably secondary to demand ischemia due to acute process -We'll continue serial troponin and EKG monitoring EDGARDO -Probably vasomotor nephropathy due to dehydration -On IV fluid, will monitor creatinine level -Nephrology following Abnormal LFT -Probably due to acute process -CT abd/pelvis negative for liver pathology -We'll monitor levels Hypertension -Stable -On when necessary hydralazine Cardiomyopathy with EF of 20-25% -Status post AICD placement -No acute exacerbation GERD -On famotidine DVT prophylaxis with heparin Partient has systemic sclerosis, 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 Was on Cellcept, but I did not resume because it may cause thrombosis Full code status History Interval history: No new issues overnight Hospitalist Physical - Constitutional Vitals: Temp Pulse Resp BP Pulse Ox 98.4 F 72 32 H 111/67 99 12/05/18 08:00 12/05/18 09:38 12/05/18 08:00 12/05/18 09:38 12/05/18 08:00 General appearance: Present: other (drowsy postop) - EENT Eyes: Present: PERRL, EOM intact ENT: hearing intact, clear oral mucosa, dentition normal - Neck Neck: Present: supple, normal ROM - Respiratory Respiratory effort: normal Respiratory: bilateral: CTA - Cardiovascular Rhythm: regular Heart Sounds: Present: S1 & S2. Absent: gallop, rub - Extremities Extremities: no ischemia, No edema, Full ROM - Abdominal General gastrointestinal: soft, non-tender, non-distended, normal bowel sounds - Integumentary Integumentary: Present: clear, warm, dry - Neurologic Neurologic: CNII-XII intact, moves all extremities Results - Labs CBC & Chem 7: 12/05/18 06:10 12/05/18 Unknown Labs: Laboratory Last Values WBC 18.8 K/mm3 (4.5-11.0) H 12/05/18 06:10 RBC 5.42 M/mm3 (3.65-5.03) H 12/05/18 06:10 Hgb 15.5 gm/dl (10.1-14.3) H 12/05/18 06:10 Hct 46.1 % (30.3-42.9) H 12/05/18 06:10 MCV 85 fl (79-97) 12/05/18 06:10 MCH 29 pg (28-32) 12/05/18 06:10 MCHC 34 % (30-34) 12/05/18 06:10 RDW 19.1 % (13.2-15.2) H 12/05/18 06:10 Plt Count 206 K/mm3 (140-440) 12/05/18 06:10 Lymph % (Auto) 2.6 % (13.4-35.0) L 12/05/18 06:10 [place] % (Auto) 14.8 % (0.0-7.3) H 12/05/18 06:10 Eos % (Auto) 0.1 % (0.0-4.3) 12/05/18 06:10 Baso % (Auto) 0.3 % (0.0-1.8) 12/05/18 06:10 Lymph # 0.5 K/mm3 (1.2-5.4) L 12/05/18 06:10 [place] # 2.8 K/mm3 (0.0-0.8) H 12/05/18 06:10 Eos # 0.0 K/mm3 (0.0-0.4) 12/05/18 06:10 Baso # 0.1 K/mm3 (0.0-0.1) 12/05/18 06:10 Add Manual Diff Complete 12/03/18 04:15 Total Counted 100 12/03/18 04:15 Seg Neutrophils % 82.2 % (40.0-70.0) H 12/05/18 06:10 Seg Neuts % (Manual) 90.0 % (40.0-70.0) H 12/03/18 04:15 0 % 12/03/18 04:15 4.0 % (13.4-35.0) L 12/03/18 04:15 Reactive Lymphs % (Man) 0 % 12/03/18 04:15 6.0 % (0.0-7.3) 12/03/18 04:15 0 % (0.0-4.3) 12/03/18 04:15 0 % (0.0-1.8) 12/03/18 04:15 0 % 12/03/18 04:15 0 % 12/03/18 04:15 0 % 12/03/18 04:15 0 % 12/03/18 04:15 Nucleated RBC % 6.0 % (0.0-0.9) H 12/03/18 04:15 Seg Neutrophils # 15.5 K/mm3 (1.8-7.7) H 12/05/18 06:10 Seg Neutrophils # Man 18.7 K/mm3 (1.8-7.7) H 12/03/18 04:15 Band Neutrophils # 0.0 K/mm3 12/03/18 04:15 0.8 K/mm3 (1.2-5.4) L 12/03/18 04:15 Abs React Lymphs (Man) 0.0 K/mm3 12/03/18 04:15 1.2 K/mm3 (0.0-0.8) H 12/03/18 04:15 0.0 K/mm3 (0.0-0.4) 12/03/18 04:15 0.0 K/mm3 (0.0-0.1) 12/03/18 04:15 0.0 K/mm3 12/03/18 04:15 0.0 K/mm3 12/03/18 04:15 0.0 K/mm3 12/03/18 04:15 Blast Cells # 0.0 K/mm3 12/03/18 04:15 WBC Morphology Not Reportable 12/03/18 04:15 Hypersegmented Neuts Not Reportable 12/03/18 04:15 Hyposegmented Neuts Not Reportable 12/03/18 04:15 Hypogranular Neuts Not Reportable 12/03/18 04:15 Not Reportable 12/03/18 04:15 Not Reportable 12/03/18 04:15 Not Reportable 12/03/18 04:15 Not Reportable 12/03/18 04:15 Not Reportable 12/03/18 04:15 Not Reportable 12/03/18 04:15 Consistent w auto 12/03/18 04:15 Not Reportable 12/03/18 04:15 Plt Clumps, EDTA Not Reportable 12/03/18 04:15 Not Reportable 12/03/18 04:15 Not Reportable 12/03/18 04:15 Not Reportable 12/03/18 04:15 Plt Morphology Comment Not Reportable 12/03/18 04:15 RBC Morphology Not Reportable 12/03/18 04:15 Dimorphic RBCs Not Reportable 12/03/18 04:15 Not Reportable 12/03/18 04:15 Not Reportable 12/03/18 04:15 Not Reportable 12/03/18 04:15 Few 12/03/18 04:15 Not Reportable 12/03/18 04:15 Few 12/03/18 04:15 Not Reportable 12/03/18 04:15 Not Reportable 12/03/18 04:15 Not Reportable 12/03/18 04:15 Not Reportable 12/03/18 04:15 Not Reportable 12/03/18 04:15 Not Reportable 12/03/18 04:15 Not Reportable 12/03/18 04:15 Not Reportable 12/03/18 04:15 Not Reportable 12/03/18 04:15 Not Reportable 12/03/18 04:15 Not Reportable 12/03/18 04:15 Not Reportable 12/03/18 04:15 Not Reportable 12/03/18 04:15 Acanthocytes (Spur) Not Reportable 12/03/18 04:15 Rouleaux Not Reportable 12/03/18 04:15 Not Reportable 12/03/18 04:15 Not Reportable 12/03/18 04:15 Not Reportable 12/03/18 04:15 ESR 1 mm/Hr (0-20) 12/03/18 14:33 Not Reportable 12/03/18 04:15 Hem Pathologist Commnt No 12/03/18 04:15 PT 15.6 Sec. (12.2-14.9) H 11/28/18 01:01 INR 1.27 (0.87-1.13) H 11/28/18 01:01 APTT 52.9 Sec. (24.2-36.6) H 12/05/18 06:51 Heparin Anti-Xa, Unfract Negative (Negative) 11/29/18 16:46 POC ABG pH 7.413 (7.35-7.45) 12/01/18 10:39 ABG pH 7.414 pH Units (7.350-7.450) 11/28/18 01:01 POC ABG pCO2 30.6 (35-45) L 12/01/18 10:39 ABG pCO2 48.8 mm Hg 11/28/18 01:01 POC ABG pO2 95 (80-105) 12/01/18 10:39 ABG pO2 65.7 mm Hg (80.0-90.0) L 11/28/18 01:01 POC ABG HCO3 19.5 (22-26 mml/L) 12/01/18 10:39 ABG HCO3 30.5 mmol/L (20.0-26.0) H 11/28/18 01:01 POC ABG Total CO2 20 (23-27mmol/L) 12/01/18 10:39 POC ABG O2 Sat 98 12/01/18 10:39 ABG O2 Saturation 91.3 % (95.0-99.0) L 11/28/18 01:01 ABG O2 Content 22.2 (0.0-44) 11/28/18 01:01 POC ABG Base Excess -5 ((-2) - (+3)mmol/L) 12/01/18 10:39 ABG Base Excess 4.6 mmol/L (-2.0-3.0) H 11/28/18 01:01 ABG Hemoglobin 18.0 gm/dl (12.0-16.0) H 11/28/18 01:01 ABG Carboxyhemoglobin 3.1 % (0.0-5.0) 11/28/18 01:01 ABG Methemoglobin 0.5 % (0.0-1.5) 11/28/18 01:01 VBG pH 7.414 (7.320-7.420) 11/28/18 01:01 88.0 % (95.0-99.0) L 11/28/18 01:01 28 % 12/01/18 10:39 Sodium 140 mmol/L (137-145) 12/05/18 Unknown Potassium 5.0 mmol/L (3.6-5.0) 12/05/18 Unknown Chloride 101.8 mmol/L (98-107) 12/05/18 Unknown Carbon Dioxide 28 mmol/L (22-30) 12/05/18 Unknown 15 mmol/L 12/05/18 Unknown BUN 18 mg/dL (7-17) H 12/05/18 Unknown 1.2 mg/dL (0.7-1.2) 12/05/18 Unknown Estimated GFR > 60 ml/min 12/05/18 Unknown 15 % 12/05/18 Unknown Glucose 261 mg/dL (65-100) H 12/05/18 Unknown POC Glucose 258 (70-105) H 12/05/18 07:54 12.5 % (4-6) H 11/28/18 01:01 Lactic Acid 5.00 mmol/L (0.7-2.0) H* 11/28/18 15:14 Calcium 9.1 mg/dL (8.4-10.2) 12/05/18 Unknown Phosphorus 3.30 mg/dL (2.5-4.5) 11/30/18 07:18 Magnesium 3.20 mg/dL (1.7-2.3) H 11/30/18 07:18 2.00 mg/dL (0.1-1.2) H 12/02/18 04:45 1.3 mg/dL (0-0.2) H 11/28/18 01:01 1.1 mg/dL 11/28/18 01:01 AST 156 units/L (5-40) H 12/02/18 04:45 ALT 183 units/L (7-56) H 12/02/18 04:45 225 units/L (35-129) H 12/02/18 04:45 30.0 umol/L (25-60) 11/28/18 01:01 976 units/L (91-180) H 12/01/18 13:45 228 units/L (30-135) H 11/28/18 01:01 0.030 ng/mL (0.00-0.029) H D 11/28/18 07:50 7.70 mg/dL (0.00-1.30) H 12/03/18 14:33 5.9 g/dL (6.3-8.2) L D 12/02/18 04:45 2.6 g/dL (3.9-5) L 12/02/18 04:45 0.8 % 12/02/18 04:45 Triglycerides 356 mg/dL (2-149) H 11/28/18 01:01 Cholesterol 200 mg/dL (50-199) H 11/28/18 01:01 125 mg/dL (50-130) 11/28/18 01:01 39 mg/dL (40-59) L 11/28/18 01:01 5.12 % 11/28/18 01:01 TSH 0.288 mlU/mL (0.270-4.200) 11/28/18 01:01 HCG, Quant < 2 mIU/mL (0-4) 11/28/18 01:01 Straw (Yellow) 11/28/18 00:37 Clear (Clear) 11/28/18 00:37 7.0 (5.0-7.0) 11/28/18 00:37 Ur Specific [place] 1.023 (1.003-1.030) 11/28/18 00:37 30 mg/dl mg/dL (Negative) 11/28/18 00:37 >=500 mg/dL (Negative) 11/28/18 00:37 Tr mg/dL (Negative) 11/28/18 00:37 Sm (Negative) 11/28/18 00:37 Neg (Negative) 11/28/18 00:37 Neg (Negative) 11/28/18 00:37 < 2.0 mg/dL (<2.0) 18 00:37 Ur Leukocyte Esterase Neg (Negative) 11/28/18 00:37 < 1.0 /HPF (0.0-6.0) 11/28/18 00:37 1.0 /HPF (0.0-6.0) 11/28/18 00:37 None seen (None Seen) 11/29/18 13:40 117.4 mg/dL (0.1-20.0) H 11/29/18 13:40 53 mmol/L 11/29/18 13:40 120 mg/dL (5-11.8) H 11/29/18 13:40 Urine HCG, Qual Negative (Negative) 11/28/18 Unknown Salicylates < 0.3 mg/dL (2.8-20.0) L 11/28/18 01:01 Presumptive negative 11/28/18 00:37 Presumptive negative 11/28/18 00:37 Acetaminophen < 5.0 ug/mL (10.0-30.0) L 11/28/18 01:01 Ur Barbiturates Screen Presumptive negative 11/28/18 00:37 Ur Phencyclidine Scrn Presumptive negative 11/28/18 00:37 Ur Amphetamines Screen Presumptive negative 11/28/18 00:37 U Benzodiazepines Scrn Presumptive negative 11/28/18 00:37 Presumptive negative 11/28/18 00:37 U Marijuana (THC) Screen Presumptive negative 11/28/18 00:37 Disclamer 11/28/18 00:37 Plasma/Serum Alcohol < 0.01 % (0-0.07) 11/28/18 01:01 13 IU/ml (0-13) 12/03/18 14:33 Heparin-induced Plt Ab Negative (Negative) 11/29/18 16:46 UF Heparin High Dose 18 % Release 11/29/18 16:46 GALE UFH Low Dose 0.1 12 % Release 11/29/18 16:46 GALE UFH Low Dose 0.5 16 % Release 11/29/18 16:46 Blood Type B POSITIVE 11/28/18 01:01 Antibody Screen Negative 11/28/18 01:01 Active Medications - Current Medications Current Medications: Generic Name Dose Route Start Last Admin Trade Name Freq PRN Reason Stop Dose Admin Acetaminophen 650 mg 11/28/18 03:02 Tylenol PO Q4H PRN Pain MILD(1-3)/Fever >100.5/TURPIN Alprazolam 0.25 mg 11/30/18 01:09 12/04/18 22:03 Xanax PO 0.25 mg Q8H PRN Administration Anxiety Amiodarone HCl 200 mg 12/02/18 12:00 12/05/18 09:37 Cordarone PO 200 mg BID VIOLA Administration Amitriptyline HCl 25 mg 11/29/18 22:00 12/04/18 22:03 Elavil PO 25 mg HS VIOLA Administration Aspirin 81 mg 11/29/18 10:00 12/05/18 09:52 Baby Aspirin PO 81 mg QDAY VIOLA Administration Dextrose 0 ml 11/28/18 02:19 D50w (25gm) Syringe IV PRN PRN Hypoglycemia Fluticasone Propionate 50 mcg 11/29/18 10:00 12/05/18 09:41 Flonase NS 50 mcg BID VIOLA Administration Hydralazine HCl 10 mg 11/28/18 03:41 Apresoline IV Q6HR PRN Blood Pressure Hydrophilic Ointment 1 applic 11/30/18 11:55 Vaseline Lip Therapy TP DIRECT PRN DRY LIPS Argatroban 250 mg/ Sodium 250 mls @ 3.682 mls/hr 11/29/18 13:00 12/04/18 00:26 Chloride IV 0.5 mcg/kg/min TITR VIOLA 3.682 mls/hr Administration Protocol 0.5 MCG/KG/MIN Sodium Chloride 1,000 mls @ 125 mls/hr 12/02/18 13:00 12/03/18 11:24 Nacl 0.9% 1000 Ml IV 0 mls/hr DIRECT VIOLA Infusion Insulin Human Isoph/Insulin Regular 15 unit 12/02/18 17:00 12/05/18 09:30 Humulin 70/30 SUB-Q 15 unit BIDDIAB VIOLA Administration Insulin Human Lispro 0 unit 11/30/18 09:00 12/05/18 09:31 Humalog SUB-Q 4 unit ACHS VIOLA Administration Protocol Metoprolol Tartrate 25 mg 11/30/18 14:00 12/05/18 06:42 Lopressor PO 25 mg Q8HR VIOLA Administration Montelukast Sodium 10 mg 11/29/18 18:00 12/04/18 17:02 Singulair PO 10 mg QPM VIOLA Administration Morphine Sulfate 2 mg 11/28/18 03:02 12/04/18 00:27 Morphine IV 2 mg Q4H PRN Administration Pain, Moderate (4-6) Nitroglycerin 0.75 inch 11/29/18 14:00 12/05/18 09:38 Nitro-Bid 2% TP 0.75 inch QIDNTG VIOLA Administration Protocol Ondansetron HCl 4 mg 11/28/18 03:02 Zofran IV Q8H PRN Nausea And Vomiting Pantoprazole Sodium 40 mg 11/29/18 10:00 12/05/18 09:37 Protonix PO 40 mg QDAY VIOLA Administration Pentoxifylline 400 mg 11/29/18 13:00 12/05/18 09:37 Trental PO 400 mg Q12HR VIOLA Administration Prednisone 50 mg 11/29/18 10:00 12/05/18 09:38 Deltasone PO 50 mg QDAY VIOLA Administration Sodium Chloride 10 ml 11/28/18 10:00 12/05/18 09:35 Sodium Chloride Flush Syringe 10 Ml IV 10 ml BID VIOLA Administration Sodium Chloride 10 ml 11/28/18 03:02 Sodium Chloride Flush Syringe 10 Ml IV PRN PRN LINE FLUSH Nutrition/Malnutrition Assess - Dietary Evaluation Nutrition/Malnutrition Findings: Nutrition Notes Start: 11/29/18 14:34 Freq: Status: Active Protocol: Document 11/29/18 14:35 LM (Rec: 11/29/18 14:40 LM [id number]) Nutrition Notes Need for Assessment generated from: Education Initial or Follow up Brief Note Current Diagnosis Diabetes,Hypertension Subjective/Other Information Consult for DM education. #1 Nutrition Diagnosis Food and nutrition-related knowledge deficit Etiology No prior DM diet education As Evidenced by Signs and Symptoms Pt statement of needing DM diet education, HGB A1C of 12. 5, BG 203 Nutrition Intervention Teaching Recipient Patient Learning Readiness Good Teaching Methods Discussion,Handout Education Handouts Provided Carbohydrate Counting for People with Diabetes RD phone number provided Yes Patient aware of follow up options Yes Revisit per MD consult or patient Sign Off request:
--- NOTE | 2018-12-05 11:36 | Progress Note ---
Subjective Date of service: 12/05/18 Principal diagnosis: thrombosis Interval history: HR and BP stable at this time, now new recommendations from CV perspective will cont current medical therapy for now A small mobile echogenic density noted on the PM wire on the RA side - this is likely a small thrombus given negative blood cultures. This is on the right side of the heart and therefore has nothing to do with her upper extremity process. Typically we recommend systemic anticoagulation for 3 months then re-imaging to document resolution of the small clot. Patient is currently on argatroban gtt. 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 by arterial doppler Sleep apnea on CPAP Interstitial Lung disease Hypertension Chronic systolic heart failure, EF of 20-25% Presence of AICD on 11/28/18 patient had multiple shocks from her ICD for runs of VT/VF Elevated troponin Probably secondary to demand ischemia due to acute process NSVT on tele currently resolved Objective Vital Signs Temp Pulse Pulse Resp BP Pulse Ox 12/05/18 11:30 78 17 121/72 96 12/05/18 11:21 76 24 106/76 92 12/05/18 11:11 76 15 102/75 94 12/05/18 11:00 77 36 H 102/75 93 12/05/18 10:51 78 13 106/80 96 12/05/18 10:41 77 24 129/96 79 L 12/05/18 10:30 79 12 129/96 92 12/05/18 10:21 77 25 H 121/79 97 12/05/18 10:11 79 18 126/83 86 12/05/18 10:01 77 25 H 126/83 77 L 12/05/18 09:51 71 29 H 110/67 93 12/05/18 09:41 71 35 H 111/67 92 12/05/18 09:38 72 111/67 12/05/18 09:30 72 36 H 111/67 94 12/05/18 09:21 72 36 H 106/69 100 12/05/18 09:11 72 32 H 110/67 95 12/05/18 09:00 71 24 110/67 96 12/05/18 08:51 70 35 H 110/65 100 12/05/18 08:41 70 35 H 114/68 12/05/18 08:30 70 22 114/68 99 12/05/18 08:21 70 17 111/64 64 L 12/05/18 08:11 70 21 107/70 87 12/05/18 08:00 98.4 F 71 32 H 107/70 99 12/05/18 07:51 72 26 H 111/76 100 12/05/18 07:42 82 18 100 12/05/18 07:41 75 17 116/76 100 12/05/18 07:30 74 17 116/76 100 12/05/18 07:21 75 14 118/77 100 12/05/18 07:11 78 17 122/86 90 12/05/18 07:00 78 24 122/86 100 12/05/18 06:51 80 27 H 117/89 100 12/05/18 06:42 79 118/83 12/05/18 06:41 79 27 H 115/83 100 12/05/18 06:30 76 22 115/83 100 12/05/18 06:21 75 37 H 109/75 99 12/05/18 06:11 73 37 H 111/76 100 12/05/18 06:00 74 37 H 107/77 100 12/05/18 05:51 73 29 H 110/73 100 12/05/18 05:41 74 26 H 114/84 100 12/05/18 05:30 75 38 H 111/76 100 12/05/18 05:21 77 37 H 114/84 100 12/05/18 05:11 77 28 H 115/85 97 12/05/18 05:00 76 32 H 115/85 97 12/05/18 04:51 73 36 H 111/78 100 12/05/18 04:41 72 36 H 108/76 100 12/05/18 04:30 73 32 H 108/76 100 12/05/18 04:21 74 38 H 108/74 100 12/05/18 04:11 73 26 H 111/76 100 12/05/18 04:00 73 88 25 H 111/76 92 12/05/18 03:51 72 34 H 105/74 94 12/05/18 03:41 73 30 H 107/74 98 12/05/18 03:40 97.4 F L 12/05/18 03:30 73 37 H 107/74 12/05/18 03:21 74 37 H 105/73 08/25/19 03:11 73 34 H 111/71 12/05/18 03:00 75 32 H 111/71 12/05/18 02:51 76 29 H 111/80 12/05/18 02:41 74 27 H 112/74 12/05/18 02:30 76 36 H 112/74 12/05/18 02:21 73 31 H 118/67 12/05/18 02:11 73 36 H 107/70 12/05/18 02:00 74 88 20 110/69 100 12/05/18 01:51 74 38 H 107/70 12/05/18 01:40 74 37 H 125/72 12/05/18 01:30 77 24 125/72 12/05/18 01:21 76 40 H 114/74 12/05/18 01:11 76 39 H 118/75 12/05/18 01:00 71 35 H 118/75 12/05/18 00:51 77 38 H 113/74 12/05/18 00:41 77 40 H 121/80 12/05/18 00:30 79 38 H 121/80 12/05/18 00:21 78 37 H 113/76 64 L 12/05/18 00:11 79 26 H 117/77 71 L 12/05/18 00:00 77 88 20 117/77 100 12/04/18 23:51 78 44 H 118/76 94 12/04/18 23:41 78 48 H 122/81 94 12/04/18 23:30 80 40 H 122/81 90 12/04/18 23:22 97.5 F L 12/04/18 23:21 79 25 H 126/71 96 12/04/18 23:11 81 39 H 120/85 98 12/04/18 23:00 80 26 H 120/85 99 12/04/18 22:51 81 36 H 121/78 99 12/04/18 22:41 81 37 H 130/85 100 12/04/18 22:30 80 20 130/85 100 12/04/18 22:21 81 43 H 124/86 100 12/04/18 22:11 82 31 H 120/85 12/04/18 22:03 80 120/85 12/04/18 22:00 81 88 20 120/85 100 12/04/18 21:51 82 33 H 120/87 97 12/04/18 21:41 81 29 H 129/85 100 12/04/18 21:30 81 26 H 129/85 100 12/04/18 21:22 100 12/04/18 21:21 80 22 125/78 100 12/04/18 21:11 81 33 H 122/82 99 12/04/18 21:00 78 32 H 122/82 99 12/04/18 20:51 79 31 H 121/84 98 12/04/18 20:41 79 29 H 116/84 100 12/04/18 20:30 78 49 H 116/84 100 12/04/18 20:21 80 19 123/82 100 12/04/18 20:11 80 36 H 131/87 100 12/04/18 20:00 82 88 20 131/87 100 12/04/18 19:51 83 21 124/91 100 12/04/18 19:41 81 33 H 124/83 100 12/04/18 19:30 97.3 F L 81 29 H 124/83 100 12/04/18 19:21 80 25 H 114/69 100 12/04/18 19:11 81 54 H 130/81 100 12/04/18 19:00 81 17 130/81 100 12/04/18 18:51 82 17 117/80 100 12/04/18 18:41 81 21 124/85 100 12/04/18 18:30 84 28 H 124/85 12/04/18 18:27 84 29 H 123/87 12/04/18 18:21 84 22 126/87 12/04/18 18:11 86 20 123/87 100 12/04/18 18:00 86 16 123/87 100 12/04/18 17:51 86 49 H 125/83 12/04/18 17:41 85 40 H 109/84 12/04/18 17:30 86 40 H 109/84 12/04/18 17:20 87 33 H 123/87 100 12/04/18 17:11 88 18 100 12/04/18 17:02 91 H 132/90 12/04/18 17:00 89 40 H 115/73 100 12/04/18 16:51 88 29 H 115/73 100 12/04/18 16:41 89 21 115/73 100 12/04/18 16:31 87 21 115/73 100 12/04/18 16:21 88 48 H 93/68 100 12/04/18 16:11 89 36 H 119/86 100 12/04/18 16:00 98.2 F 90 88 25 H 119/86 100 12/04/18 15:51 91 H 22 135/93 98 12/04/18 15:41 87 25 H 116/83 100 12/04/18 15:30 84 21 116/83 100 12/04/18 15:21 85 24 125/83 100 12/04/18 15:11 84 17 123/78 100 12/04/18 15:00 83 15 123/78 100 12/04/18 14:51 84 35 H 118/86 100 12/04/18 14:41 83 15 110/74 72 L 12/04/18 14:33 81 110/74 12/04/18 14:30 81 32 H 110/74 100 12/04/18 14:21 81 24 109/72 100 12/04/18 14:11 82 34 H 119/79 100 12/04/18 14:00 82 41 H 119/79 100 12/04/18 13:51 81 32 H 117/74 100 12/04/18 13:41 82 17 120/75 100 12/04/18 13:30 81 19 120/75 100 12/04/18 13:21 80 26 H 105/71 100 12/04/18 13:11 79 17 105/71 100 12/04/18 13:00 78 35 H 105/71 100 12/04/18 12:51 80 36 H 103/70 100 12/04/18 12:41 81 27 H 113/76 100 12/04/18 12:30 82 26 H 113/76 100 12/04/18 12:21 81 17 117/83 100 12/04/18 12:11 80 19 126/78 100 12/04/18 12:00 97.9 F 80 78 27 H 126/78 100 12/04/18 11:50 81 29 H 127/84 100 12/04/18 11:41 80 21 119/82 100 - Physical Examination General: Other (Chronically ill) HEENT: Positive: PERRL Neck: Positive: trachea midline Cardiac: Positive: Reg Rate and Rhythm, S1/S2 Lungs: Positive: clear to auscultation Neuro: Positive: Grossly Intact Abdomen: Positive: Soft - Labs and Meds Coagulation 12/05/18 Range/Units 06:51 APTT 52.9 H (24.2-36.6) Sec. CBC 12/05/18 Range/Units 06:10 WBC 18.8 H (4.5-11.0) K/mm3 RBC 5.42 H (3.65-5.03) M/mm3 Hgb 15.5 H (10.1-14.3) gm/dl Hct 46.1 H (30.3-42.9) % Plt Count 206 (140-440) K/mm3 Lymph # 0.5 L (1.2-5.4) K/mm3 [place] # 2.8 H (0.0-0.8) K/mm3 Eos # 0.0 (0.0-0.4) K/mm3 Baso # 0.1 (0.0-0.1) K/mm3 Comprehensive Metabolic Panel 12/05/18 Range/Units Unknown Sodium 140 (137-145) mmol/L Potassium 5.0 (3.6-5.0) mmol/L Chloride 101.8 (98-107) mmol/L Carbon Dioxide 28 (22-30) mmol/L BUN 18 H (7-17) mg/dL Creatinine 1.2 (0.7-1.2) mg/dL Glucose 261 H (65-100) mg/dL Calcium 9.1 (8.4-10.2) mg/dL
--- NOTE | 2018-12-05 15:42 | Progress Note ---
Assessment and Plan Imp: 1. NICMP 2. NSVT 3. EDGARDO 2/2 volume depletion 4. HONK, resolved 5. Metabolic encephalopathy, resolved 6. Systemic sclerosis 7. CATRACHO Rec: 1. CPAP QHS; I am okay with her bringing in her home CPAP unit 2. Vascular following; on Argatroban; HIT negative -> consider transition to Heparin 3. IVFs 4. Ambulation if tolerated 5. Can leave ICU pulmonary-rodriguez Plan of care reviewed w/ patient, she understands/agrees Subjective Date of service: 12/05/18 Principal diagnosis: thrombosis Interval history: Pt. remains off drips. On RA. Sleeping comfortably. No reported complaints. Active Medications Acetaminophen (Tylenol) 650 mg PO Q4H PRN PRN Reason: Pain MILD(1-3)/Fever >100.5/TURPIN Alprazolam (Xanax) 0.25 mg PO Q8H PRN PRN Reason: Anxiety Last Admin: 12/04/18 22:03 Dose: 0.25 mg Documented by: Amiodarone HCl (Cordarone) 200 mg PO BID [facility] Last Admin: 12/05/18 09:37 Dose: 200 mg Documented by: Amitriptyline HCl (Elavil) 25 mg PO HS [facility] Last Admin: 12/04/18 22:03 Dose: 25 mg Documented by: Aspirin (Baby Aspirin) 81 mg PO QDAY [facility] Last Admin: 12/05/18 09:52 Dose: 81 mg Documented by: Dextrose (D50w (25gm) Syringe) 0 ml IV PRN PRN PRN Reason: Hypoglycemia Fluticasone Propionate (Flonase) 50 mcg NS BID [facility] Last Admin: 12/05/18 09:41 Dose: 50 mcg Documented by: Hydralazine HCl (Apresoline) 10 mg IV Q6HR PRN PRN Reason: Blood Pressure Hydrophilic Ointment (Vaseline Lip Therapy) 1 applic TP DIRECT PRN PRN Reason: DRY LIPS Argatroban 250 mg/ Sodium (Chloride) 250 mls @ 3.682 mls/hr IV TITR [facility]; Protocol Last Admin: 12/04/18 00:26 Dose: 0.5 mcg/kg/min, 3.682 mls/hr Documented by: Sodium Chloride (Nacl 0.9% 1000 Ml) 1,000 mls @ 125 mls/hr IV DIRECT [facility] Last Infusion: 12/03/18 11:24 Dose: 0 mls/hr Documented by: Insulin Human Isoph/Insulin Regular (Humulin 70/30) 15 unit SUB-Q BIDDIAB [facility] Last Admin: 12/05/18 09:30 Dose: 15 unit Documented by: Insulin Human Lispro (Humalog) 0 unit SUB-Q ACHS [facility]; Protocol Last Admin: 12/05/18 11:37 Dose: 3 unit Documented by: Metoprolol Tartrate (Lopressor) 25 mg PO Q8HR [facility] Last Admin: 12/05/18 13:03 Dose: 25 mg Documented by: Montelukast Sodium (Singulair) 10 mg PO QPM [facility] Last Admin: 12/04/18 17:02 Dose: 10 mg Documented by: Morphine Sulfate (Morphine) 2 mg IV Q4H PRN PRN Reason: Pain, Moderate (4-6) Last Admin: 12/04/18 00:27 Dose: 2 mg Documented by: Nitroglycerin (Nitro-Bid 2%) 0.75 inch TP QIDNTG [facility]; Protocol Last Admin: 12/05/18 13:03 Dose: 0.75 inch Documented by: Ondansetron HCl (Zofran) 4 mg IV Q8H PRN PRN Reason: Nausea And Vomiting Pantoprazole Sodium (Protonix) 40 mg PO QDAY [facility] Last Admin: 12/05/18 09:37 Dose: 40 mg Documented by: Pentoxifylline (Trental) 400 mg PO Q12HR [facility] Last Admin: 12/05/18 09:37 Dose: 400 mg Documented by: Prednisone (Deltasone) 50 mg PO QDAY [facility] Last Admin: 12/05/18 09:38 Dose: 50 mg Documented by: Sodium Chloride (Sodium Chloride Flush Syringe 10 Ml) 10 ml IV BID [facility] Last Admin: 12/05/18 09:35 Dose: 10 ml Documented by: Sodium Chloride (Sodium Chloride Flush Syringe 10 Ml) 10 ml IV PRN PRN PRN Reason: LINE FLUSH Objective Vital Signs - 12hr 12/05/18 12/05/18 12/05/18 03:41 03:51 04:00 Temperature Pulse Rate 73 72 73 Pulse Rate [ 88 From Monitor] Respiratory 30 H 34 H 25 H Rate Blood Pressure 107/74 105/74 111/76 O2 Sat by Pulse 98 94 92 Oximetry 12/05/18 12/05/18 12/05/18 04:11 04:21 04:30 Temperature Pulse Rate 73 74 73 Pulse Rate [ From Monitor] Respiratory 26 H 38 H 32 H Rate Blood Pressure 111/76 108/74 108/76 O2 Sat by Pulse 100 100 100 Oximetry 12/05/18 12/05/18 12/05/18 04:41 04:51 05:00 Temperature Pulse Rate 72 73 76 Pulse Rate [ From Monitor] Respiratory 36 H 36 H 32 H Rate Blood Pressure 108/76 111/78 115/85 O2 Sat by Pulse 100 100 97 Oximetry 12/05/18 12/05/18 12/05/18 05:11 05:21 05:30 Temperature Pulse Rate 77 77 75 Pulse Rate [ From Monitor] Respiratory 28 H 37 H 38 H Rate Blood Pressure 115/85 114/84 111/76 O2 Sat by Pulse 97 100 100 Oximetry 12/05/18 12/05/18 12/05/18 05:41 05:51 06:00 Temperature Pulse Rate 74 73 74 Pulse Rate [ From Monitor] Respiratory 26 H 29 H 37 H Rate Blood Pressure 114/84 110/73 107/77 O2 Sat by Pulse 100 100 100 Oximetry 12/05/18 12/05/18 12/05/18 06:11 06:21 06:30 Temperature Pulse Rate 73 75 76 Pulse Rate [ From Monitor] Respiratory 37 H 37 H 22 Rate Blood Pressure 111/76 109/75 115/83 O2 Sat by Pulse 100 99 100 Oximetry 12/05/18 12/05/18 12/05/18 06:41 06:42 06:51 Temperature Pulse Rate 79 79 80 Pulse Rate [ From Monitor] Respiratory 27 H 27 H Rate Blood Pressure 115/83 118/83 117/89 O2 Sat by Pulse 100 100 Oximetry 12/05/18 12/05/18 12/05/18 07:00 07:11 07:21 Temperature Pulse Rate 78 78 75 Pulse Rate [ From Monitor] Respiratory 24 17 14 Rate Blood Pressure 122/86 122/86 118/77 O2 Sat by Pulse 100 90 100 Oximetry 12/05/18 12/05/18 12/05/18 07:30 07:41 07:42 Temperature Pulse Rate 74 75 Pulse Rate [ 82 From Monitor] Respiratory 17 17 18 Rate Blood Pressure 116/76 116/76 O2 Sat by Pulse 100 100 100 Oximetry 12/05/18 12/05/18 12/05/18 07:51 08:00 08:11 Temperature 98.4 F Pulse Rate 72 71 70 Pulse Rate [ From Monitor] Respiratory 26 H 32 H 21 Rate Blood Pressure 111/76 107/70 107/70 O2 Sat by Pulse 100 99 87 Oximetry 12/05/18 12/05/18 12/05/18 08:21 08:30 08:41 Temperature Pulse Rate 70 70 70 Pulse Rate [ From Monitor] Respiratory 17 22 35 H Rate Blood Pressure 111/64 114/68 114/68 O2 Sat by Pulse 64 L 99 Oximetry 12/05/18 12/05/18 12/05/18 08:51 09:00 09:11 Temperature Pulse Rate 70 71 72 Pulse Rate [ From Monitor] Respiratory 35 H 24 32 H Rate Blood Pressure 110/65 110/67 110/67 O2 Sat by Pulse 100 96 95 Oximetry 12/05/18 12/05/18 12/05/18 09:21 09:30 09:38 Temperature Pulse Rate 72 72 72 Pulse Rate [ From Monitor] Respiratory 36 H 36 H Rate Blood Pressure 106/69 111/67 111/67 O2 Sat by Pulse 100 94 Oximetry 12/05/18 12/05/18 12/05/18 09:41 09:51 10:01 Temperature Pulse Rate 71 71 77 Pulse Rate [ From Monitor] Respiratory 35 H 29 H 25 H Rate Blood Pressure 111/67 110/67 126/83 O2 Sat by Pulse 92 93 77 L Oximetry 12/05/18 12/05/18 12/05/18 10:11 10:21 10:30 Temperature Pulse Rate 79 77 79 Pulse Rate [ From Monitor] Respiratory 18 25 H 12 Rate Blood Pressure 126/83 121/79 129/96 O2 Sat by Pulse 86 97 92 Oximetry 12/05/18 12/05/18 12/05/18 10:41 10:51 11:00 Temperature Pulse Rate 77 78 77 Pulse Rate [ From Monitor] Respiratory 24 13 36 H Rate Blood Pressure 129/96 106/80 102/75 O2 Sat by Pulse 79 L 96 93 Oximetry 12/05/18 12/05/18 12/05/18 11:11 11:21 11:30 Temperature Pulse Rate 76 76 78 Pulse Rate [ From Monitor] Respiratory 15 24 17 Rate Blood Pressure 102/75 106/76 121/72 O2 Sat by Pulse 94 92 96 Oximetry 12/05/18 12/05/18 12/05/18 11:41 11:51 12:00 Temperature 98.0 F Pulse Rate 75 76 76 Pulse Rate [ 88 From Monitor] Respiratory 17 13 13 Rate Blood Pressure 121/72 111/74 116/76 O2 Sat by Pulse 100 99 93 Oximetry 12/05/18 12/05/18 12/05/18 12:11 12:21 12:30 Temperature Pulse Rate 79 78 76 Pulse Rate [ From Monitor] Respiratory 17 12 17 Rate Blood Pressure 116/76 116/76 122/80 O2 Sat by Pulse 93 95 72 L Oximetry 12/05/18 12/05/18 12/05/18 12:41 12:51 13:00 Temperature Pulse Rate 76 76 75 Pulse Rate [ From Monitor] Respiratory 17 25 H 20 Rate Blood Pressure 122/80 122/83 114/79 O2 Sat by Pulse 90 100 92 Oximetry 12/05/18 13:03 Temperature Pulse Rate 76 Pulse Rate [ From Monitor] Respiratory Rate Blood Pressure 114/79 O2 Sat by Pulse Oximetry Constitutional: no acute distress, alert Eyes: non-icteric ENT: oropharynx moist Neck: supple Effort: normal Ascultation: Bilateral: clear Cardiovascular: regular rate and rhythm (no mrg) Gastrointestinal: normoactive bowel sounds, non-tender, non-distended, other (obese) Extremities: other (areas of ischemia, extremities) Neurologic: normal mental status, non-focal exam, pupils equal and round, CN II- XII normal Psychiatric: mood appropriate, affect normal CBC and BMP: 12/05/18 06:10 12/05/18 Unknown ABG, PT/INR, D-dimer: ABG POC ABG pH 7.413 (7.35-7.45) 12/01/18 10:39 ABG pH 7.414 pH Units (7.350-7.450) 11/28/18 01:01 POC ABG pCO2 30.6 (35-45) L 12/01/18 10:39 ABG pCO2 48.8 mm Hg 11/28/18 01:01 POC ABG pO2 95 (80-105) 12/01/18 10:39 ABG pO2 65.7 mm Hg (80.0-90.0) L 11/28/18 01:01 POC ABG HCO3 19.5 (22-26 mml/L) 12/01/18 10:39 POC ABG Total CO2 20 (23-27mmol/L) 12/01/18 10:39 POC ABG O2 Sat 98 12/01/18 10:39 ABG O2 Saturation 91.3 % (95.0-99.0) L 11/28/18 01:01 PT/INR, D-dimer PT 15.6 Sec. (12.2-14.9) H 11/28/18 01:01 INR 1.27 (0.87-1.13) H 11/28/18 01:01 Abnormal lab findings: Abnormal Labs 11/27/18 11/28/18 11/28/18 23:40 01:01 01:01 WBC 15.1 H RBC 6.19 H Hgb 17.4 H Hct 54.6 H RDW 19.6 H Lymph % (Auto) 6.3 L [place] % (Auto) Lymph # 0.9 L [place] # 0.9 H Seg Neutrophils % 87.2 H Seg Neuts % (Manual) Lymphocytes % (Manual) Nucleated RBC % Seg Neutrophils # 13.2 H Seg Neutrophils # Man Lymphocytes # (Manual) Monocytes # (Manual) PT 15.6 H INR 1.27 H APTT POC ABG pCO2 ABG pO2 ABG HCO3 ABG O2 Saturation ABG Base Excess ABG Hemoglobin Oxyhemoglobin Sodium Potassium Chloride Carbon Dioxide BUN Creatinine Glucose POC Glucose > 500 H Hemoglobin A1c Lactic Acid Calcium Phosphorus Magnesium Total Bilirubin Direct Bilirubin AST ALT Alkaline Phosphatase Lactate Dehydrogenase Total Creatine Kinase Troponin T C-Reactive Protein Total Protein Albumin Triglycerides Cholesterol HDL Cholesterol Urine Creatinine Urine Total Protein Salicylates Acetaminophen 11/28/18 11/28/18 11/28/18 01:01 01:01 01:01 WBC RBC Hgb Hct RDW Lymph % (Auto) [place] % (Auto) Lymph # [place] # Seg Neutrophils % Seg Neuts % (Manual) Lymphocytes % (Manual) Nucleated RBC % Seg Neutrophils # Seg Neutrophils # Man Lymphocytes # (Manual) Monocytes # (Manual) PT INR APTT POC ABG pCO2 ABG pO2 ABG HCO3 ABG O2 Saturation ABG Base Excess ABG Hemoglobin Oxyhemoglobin Sodium Potassium 5.9 H Chloride 92.9 L Carbon Dioxide BUN 20 H Creatinine 1.3 H Glucose 1088 H* POC Glucose Hemoglobin A1c Lactic Acid 3.50 H* Calcium Phosphorus Magnesium Total Bilirubin 2.40 H Direct Bilirubin 1.3 H AST ALT Alkaline Phosphatase 225 H Lactate Dehydrogenase Total Creatine Kinase Troponin T 0.030 H C-Reactive Protein Total Protein Albumin 3.8 L Triglycerides 356 H Cholesterol 200 H HDL Cholesterol 39 L Urine Creatinine Urine Total Protein Salicylates < 0.3 L Acetaminophen 11/28/18 11/28/18 11/28/18 01:01 01:01 01:01 WBC RBC Hgb Hct RDW Lymph % (Auto) [place] % (Auto) Lymph # [place] # Seg Neutrophils % Seg Neuts % (Manual) Lymphocytes % (Manual) Nucleated RBC % Seg Neutrophils # Seg Neutrophils # Man Lymphocytes # (Manual) Monocytes # (Manual) PT INR APTT POC ABG pCO2 ABG pO2 65.7 L ABG HCO3 30.5 H ABG O2 Saturation 91.3 L ABG Base Excess 4.6 H ABG Hemoglobin 18.0 H Oxyhemoglobin 88.0 L Sodium Potassium Chloride Carbon Dioxide BUN Creatinine Glucose POC Glucose Hemoglobin A1c Lactic Acid Calcium Phosphorus Magnesium 3.70 H Total Bilirubin Direct Bilirubin AST ALT Alkaline Phosphatase Lactate Dehydrogenase Total Creatine Kinase 228 H Troponin T C-Reactive Protein Total Protein Albumin Triglycerides Cholesterol HDL Cholesterol Urine Creatinine Urine Total Protein Salicylates Acetaminophen < 5.0 L 11/28/18 11/28/18 11/28/18 01:01 02:39 03:17 WBC RBC Hgb Hct RDW Lymph % (Auto) [place] % (Auto) Lymph # [place] # Seg Neutrophils % Seg Neuts % (Manual) Lymphocytes % (Manual) Nucleated RBC % Seg Neutrophils # Seg Neutrophils # Man Lymphocytes # (Manual) Monocytes # (Manual) PT INR APTT POC ABG pCO2 ABG pO2 ABG HCO3 ABG O2 Saturation ABG Base Excess ABG Hemoglobin Oxyhemoglobin Sodium Potassium Chloride Carbon Dioxide BUN Creatinine Glucose POC Glucose > 500 H Hemoglobin A1c 12.5 H Lactic Acid 3.00 H* Calcium Phosphorus Magnesium Total Bilirubin Direct Bilirubin AST ALT Alkaline Phosphatase Lactate Dehydrogenase Total Creatine Kinase Troponin T C-Reactive Protein Total Protein Albumin Triglycerides Cholesterol HDL Cholesterol Urine Creatinine Urine Total Protein Salicylates Acetaminophen 11/28/18 11/28/18 11/28/18 03:17 03:17 03:35 WBC RBC Hgb Hct RDW Lymph % (Auto) [place] % (Auto) Lymph # [place] # Seg Neutrophils % Seg Neuts % (Manual) Lymphocytes % (Manual) Nucleated RBC % Seg Neutrophils # Seg Neutrophils # Man Lymphocytes # (Manual) Monocytes # (Manual) PT INR APTT POC ABG pCO2 ABG pO2 ABG HCO3 ABG O2 Saturation ABG Base Excess ABG Hemoglobin Oxyhemoglobin Sodium Potassium 6.1 H* Chloride 97.6 L Carbon Dioxide BUN 20 H Creatinine Glucose 927 H* POC Glucose > 500 H Hemoglobin A1c Lactic Acid Calcium Phosphorus 4.70 H Magnesium 3.70 H Total Bilirubin Direct Bilirubin AST ALT Alkaline Phosphatase Lactate Dehydrogenase Total Creatine Kinase Troponin T C-Reactive Protein Total Protein Albumin Triglycerides Cholesterol HDL Cholesterol Urine Creatinine Urine Total Protein Salicylates Acetaminophen 11/28/18 11/28/18 11/28/18 04:43 05:35 06:30 WBC RBC Hgb Hct RDW Lymph % (Auto) [place] % (Auto) Lymph # [place] # Seg Neutrophils % Seg Neuts % (Manual) Lymphocytes % (Manual) Nucleated RBC % Seg Neutrophils # Seg Neutrophils # Man Lymphocytes # (Manual) Monocytes # (Manual) PT INR APTT POC ABG pCO2 ABG pO2 ABG HCO3 ABG O2 Saturation ABG Base Excess ABG Hemoglobin Oxyhemoglobin Sodium Potassium Chloride Carbon Dioxide BUN Creatinine Glucose POC Glucose > 500 H > 500 H > 500 H Hemoglobin A1c Lactic Acid Calcium Phosphorus Magnesium Total Bilirubin Direct Bilirubin AST ALT Alkaline Phosphatase Lactate Dehydrogenase Total Creatine Kinase Troponin T C-Reactive Protein Total Protein Albumin Triglycerides Cholesterol HDL Cholesterol Urine Creatinine Urine Total Protein Salicylates Acetaminophen 11/28/18 11/28/18 11/28/18 07:50 07:50 07:50 WBC RBC Hgb Hct RDW Lymph % (Auto) [place] % (Auto) Lymph # [place] # Seg Neutrophils % Seg Neuts % (Manual) Lymphocytes % (Manual) Nucleated RBC % Seg Neutrophils # Seg Neutrophils # Man Lymphocytes # (Manual) Monocytes # (Manual) PT INR APTT POC ABG pCO2 ABG pO2 ABG HCO3 ABG O2 Saturation ABG Base Excess ABG Hemoglobin Oxyhemoglobin Sodium 156 H D Potassium 3.3 L D Chloride 112.8 H Carbon Dioxide BUN Creatinine Glucose 409 H POC Glucose Hemoglobin A1c Lactic Acid 6.20 H* Calcium Phosphorus Magnesium Total Bilirubin Direct Bilirubin AST ALT Alkaline Phosphatase Lactate Dehydrogenase Total Creatine Kinase Troponin T 0.030 H D C-Reactive Protein Total Protein Albumin Triglycerides Cholesterol HDL Cholesterol Urine Creatinine Urine Total Protein Salicylates Acetaminophen 11/28/18 11/28/18 11/28/18 10:33 12:52 14:11 WBC RBC Hgb Hct RDW Lymph % (Auto) [place] % (Auto) Lymph # [place] # Seg Neutrophils % Seg Neuts % (Manual) Lymphocytes % (Manual) Nucleated RBC % Seg Neutrophils # Seg Neutrophils # Man Lymphocytes # (Manual) Monocytes # (Manual) PT INR APTT POC ABG pCO2 ABG pO2 ABG HCO3 ABG O2 Saturation ABG Base Excess ABG Hemoglobin Oxyhemoglobin Sodium Potassium Chloride Carbon Dioxide BUN Creatinine Glucose POC Glucose 411 H 204 H 119 H Hemoglobin A1c Lactic Acid Calcium Phosphorus Magnesium Total Bilirubin Direct Bilirubin AST ALT Alkaline Phosphatase Lactate Dehydrogenase Total Creatine Kinase Troponin T C-Reactive Protein Total Protein Albumin Triglycerides Cholesterol HDL Cholesterol Urine Creatinine Urine Total Protein Salicylates Acetaminophen 11/28/18 11/28/18 11/28/18 14:15 15:14 15:14 WBC RBC Hgb Hct RDW Lymph % (Auto) [place] % (Auto) Lymph # [place] # Seg Neutrophils % Seg Neuts % (Manual) Lymphocytes % (Manual) Nucleated RBC % Seg Neutrophils # Seg Neutrophils # Man Lymphocytes # (Manual) Monocytes # (Manual) PT INR APTT POC ABG pCO2 ABG pO2 ABG HCO3 ABG O2 Saturation ABG Base Excess ABG Hemoglobin Oxyhemoglobin Sodium 151 H Potassium Chloride 112.4 H Carbon Dioxide 21 L D BUN Creatinine Glucose 167 H POC Glucose Hemoglobin A1c Lactic Acid 4.80 H* 5.00 H* Calcium Phosphorus Magnesium Total Bilirubin Direct Bilirubin AST ALT Alkaline Phosphatase Lactate Dehydrogenase Total Creatine Kinase Troponin T C-Reactive Protein Total Protein Albumin Triglycerides Cholesterol HDL Cholesterol Urine Creatinine Urine Total Protein Salicylates Acetaminophen 11/28/18 11/28/18 11/28/18 15:22 16:22 17:11 WBC RBC Hgb Hct RDW Lymph % (Auto) [place] % (Auto) Lymph # [place] # Seg Neutrophils % Seg Neuts % (Manual) Lymphocytes % (Manual) Nucleated RBC % Seg Neutrophils # Seg Neutrophils # Man Lymphocytes # (Manual) Monocytes # (Manual) PT INR APTT POC ABG pCO2 ABG pO2 ABG HCO3 ABG O2 Saturation ABG Base Excess ABG Hemoglobin Oxyhemoglobin Sodium Potassium Chloride Carbon Dioxide BUN Creatinine Glucose POC Glucose 114 H 120 H 183 H Hemoglobin A1c Lactic Acid Calcium Phosphorus Magnesium Total Bilirubin Direct Bilirubin AST ALT Alkaline Phosphatase Lactate Dehydrogenase Total Creatine Kinase Troponin T C-Reactive Protein Total Protein Albumin Triglycerides Cholesterol HDL Cholesterol Urine Creatinine Urine Total Protein Salicylates Acetaminophen 11/28/18 11/28/18 11/28/18 17:17 18:18 19:26 WBC RBC Hgb Hct RDW Lymph % (Auto) [place] % (Auto) Lymph # [place] # Seg Neutrophils % Seg Neuts % (Manual) Lymphocytes % (Manual) Nucleated RBC % Seg Neutrophils # Seg Neutrophils # Man Lymphocytes # (Manual) Monocytes # (Manual) PT INR APTT POC ABG pCO2 ABG pO2 ABG HCO3 ABG O2 Saturation ABG Base Excess ABG Hemoglobin Oxyhemoglobin Sodium 151 H Potassium Chloride 112.9 H Carbon Dioxide 21 L BUN Creatinine Glucose 265 H POC Glucose 269 H 243 H Hemoglobin A1c Lactic Acid Calcium Phosphorus Magnesium Total Bilirubin Direct Bilirubin AST ALT Alkaline Phosphatase Lactate Dehydrogenase Total Creatine Kinase Troponin T C-Reactive Protein Total Protein Albumin Triglycerides Cholesterol HDL Cholesterol Urine Creatinine Urine Total Protein Salicylates Acetaminophen 11/28/18 11/28/18 11/29/18 20:45 21:44 05:55 WBC 29.7 H RBC 5.93 H Hgb 16.6 H Hct 51.0 H RDW 19.7 H Lymph % (Auto) [place] % (Auto) Lymph # [place] # Seg Neutrophils % Seg Neuts % (Manual) 93.0 H Lymphocytes % (Manual) 4.0 L Nucleated RBC % Seg Neutrophils # Seg Neutrophils # Man 27.6 H Lymphocytes # (Manual) Monocytes # (Manual) 0.9 H PT INR APTT POC ABG pCO2 ABG pO2 ABG HCO3 ABG O2 Saturation ABG Base Excess ABG Hemoglobin Oxyhemoglobin Sodium Potassium Chloride Carbon Dioxide BUN Creatinine Glucose POC Glucose 177 H 124 H Hemoglobin A1c Lactic Acid Calcium Phosphorus Magnesium Total Bilirubin Direct Bilirubin AST ALT Alkaline Phosphatase Lactate Dehydrogenase Total Creatine Kinase Troponin T C-Reactive Protein Total Protein Albumin Triglycerides Cholesterol HDL Cholesterol Urine Creatinine Urine Total Protein Salicylates Acetaminophen 11/29/18 11/29/18 11/29/18 06:42 07:36 09:08 WBC RBC Hgb Hct RDW Lymph % (Auto) [place] % (Auto) Lymph # [place] # Seg Neutrophils % Seg Neuts % (Manual) Lymphocytes % (Manual) Nucleated RBC % Seg Neutrophils # Seg Neutrophils # Man Lymphocytes # (Manual) Monocytes # (Manual) PT INR APTT POC ABG pCO2 ABG pO2 ABG HCO3 ABG O2 Saturation ABG Base Excess ABG Hemoglobin Oxyhemoglobin Sodium 152 H Potassium 5.4 H Chloride 110.6 H Carbon Dioxide 20 L BUN 20 H Creatinine 1.6 H Glucose 237 H POC Glucose 118 H 146 H Hemoglobin A1c Lactic Acid Calcium Phosphorus Magnesium Total Bilirubin 3.80 H Direct Bilirubin AST 351 H ALT 123 H Alkaline Phosphatase 222 H Lactate Dehydrogenase Total Creatine Kinase Troponin T C-Reactive Protein Total Protein Albumin 3.5 L Triglycerides Cholesterol HDL Cholesterol Urine Creatinine Urine Total Protein Salicylates Acetaminophen 11/29/18 11/29/18 11/29/18 11:00 11:44 13:40 WBC RBC Hgb Hct RDW Lymph % (Auto) [place] % (Auto) Lymph # [place] # Seg Neutrophils % Seg Neuts % (Manual) Lymphocytes % (Manual) Nucleated RBC % Seg Neutrophils # Seg Neutrophils # Man Lymphocytes # (Manual) Monocytes # (Manual) PT INR APTT POC ABG pCO2 ABG pO2 ABG HCO3 ABG O2 Saturation ABG Base Excess ABG Hemoglobin Oxyhemoglobin Sodium 155 H Potassium 5.8 H Chloride 110.1 H Carbon Dioxide 15 L BUN 21 H Creatinine 1.4 H Glucose 204 H POC Glucose 203 H Hemoglobin A1c Lactic Acid Calcium Phosphorus Magnesium Total Bilirubin 3.70 H Direct Bilirubin AST 361 H ALT 125 H Alkaline Phosphatase 227 H Lactate Dehydrogenase Total Creatine Kinase Troponin T C-Reactive Protein Total Protein Albumin 3.4 L Triglycerides Cholesterol HDL Cholesterol Urine Creatinine 117.4 H Urine Total Protein 120 H Salicylates Acetaminophen 11/29/18 11/29/18 11/29/18 16:29 16:46 16:46 WBC RBC Hgb Hct RDW Lymph % (Auto) [place] % (Auto) Lymph # [place] # Seg Neutrophils % Seg Neuts % (Manual) Lymphocytes % (Manual) Nucleated RBC % Seg Neutrophils # Seg Neutrophils # Man Lymphocytes # (Manual) Monocytes # (Manual) PT INR APTT 49.5 H POC ABG pCO2 ABG pO2 ABG HCO3 ABG O2 Saturation ABG Base Excess ABG Hemoglobin Oxyhemoglobin Sodium 148 H Potassium Chloride 108.3 H Carbon Dioxide 21 L BUN 22 H Creatinine 1.4 H Glucose 152 H POC Glucose 158 H Hemoglobin A1c Lactic Acid Calcium Phosphorus Magnesium Total Bilirubin Direct Bilirubin AST ALT Alkaline Phosphatase Lactate Dehydrogenase Total Creatine Kinase Troponin T C-Reactive Protein Total Protein Albumin Triglycerides Cholesterol HDL Cholesterol Urine Creatinine Urine Total Protein Salicylates Acetaminophen 11/29/18 11/29/18 11/30/18 22:02 23:58 05:51 WBC RBC Hgb Hct RDW Lymph % (Auto) [place] % (Auto) Lymph # [place] # Seg Neutrophils % Seg Neuts % (Manual) Lymphocytes % (Manual) Nucleated RBC % Seg Neutrophils # Seg Neutrophils # Man Lymphocytes # (Manual) Monocytes # (Manual) PT INR APTT 63.2 H* POC ABG pCO2 ABG pO2 ABG HCO3 ABG O2 Saturation ABG Base Excess ABG Hemoglobin Oxyhemoglobin Sodium Potassium Chloride Carbon Dioxide BUN Creatinine Glucose POC Glucose 183 H 156 H Hemoglobin A1c Lactic Acid Calcium Phosphorus Magnesium Total Bilirubin Direct Bilirubin AST ALT Alkaline Phosphatase Lactate Dehydrogenase Total Creatine Kinase Troponin T C-Reactive Protein Total Protein Albumin Triglycerides Cholesterol HDL Cholesterol Urine Creatinine Urine Total Protein Salicylates Acetaminophen 11/30/18 11/30/18 11/30/18 07:18 07:58 09:40 WBC 28.8 H RBC 6.58 H Hgb 18.2 H Hct 57.2 H* D RDW 19.3 H Lymph % (Auto) [place] % (Auto) Lymph # [place] # Seg Neutrophils % Seg Neuts % (Manual) Lymphocytes % (Manual) Nucleated RBC % Seg Neutrophils # Seg Neutrophils # Man Lymphocytes # (Manual) Monocytes # (Manual) PT INR APTT POC ABG pCO2 ABG pO2 ABG HCO3 ABG O2 Saturation ABG Base Excess ABG Hemoglobin Oxyhemoglobin Sodium 150 H Potassium Chloride 110.3 H Carbon Dioxide 20 L BUN Creatinine Glucose 149 H POC Glucose 190 H Hemoglobin A1c Lactic Acid Calcium Phosphorus Magnesium 3.20 H Total Bilirubin 3.70 H Direct Bilirubin AST 480 H ALT 213 H Alkaline Phosphatase 258 H Lactate Dehydrogenase Total Creatine Kinase Troponin T C-Reactive Protein Total Protein Albumin 3.4 L Triglycerides Cholesterol HDL Cholesterol Urine Creatinine Urine Total Protein Salicylates Acetaminophen 11/30/18 11/30/18 11/30/18 11:24 12:17 16:22 WBC RBC Hgb Hct RDW Lymph % (Auto) [place] % (Auto) Lymph # [place] # Seg Neutrophils % Seg Neuts % (Manual) Lymphocytes % (Manual) Nucleated RBC % Seg Neutrophils # Seg Neutrophils # Man Lymphocytes # (Manual) Monocytes # (Manual) PT INR APTT 62.1 H* POC ABG pCO2 ABG pO2 ABG HCO3 ABG O2 Saturation ABG Base Excess ABG Hemoglobin Oxyhemoglobin Sodium Potassium Chloride Carbon Dioxide BUN Creatinine Glucose POC Glucose 242 H 165 H Hemoglobin A1c Lactic Acid Calcium Phosphorus Magnesium Total Bilirubin Direct Bilirubin AST ALT Alkaline Phosphatase Lactate Dehydrogenase Total Creatine Kinase Troponin T C-Reactive Protein Total Protein Albumin Triglycerides Cholesterol HDL Cholesterol Urine Creatinine Urine Total Protein Salicylates Acetaminophen 11/30/18 12/01/18 12/01/18 21:32 05:32 05:32 WBC 24.7 H RBC 6.30 H Hgb 17.8 H Hct 54.2 H RDW 19.2 H Lymph % (Auto) [place] % (Auto) Lymph # [place] # Seg Neutrophils % Seg Neuts % (Manual) 87.0 H Lymphocytes % (Manual) 10.0 L Nucleated RBC % 2.0 H Seg Neutrophils # Seg Neutrophils # Man 21.5 H Lymphocytes # (Manual) Monocytes # (Manual) PT INR APTT 50.0 H POC ABG pCO2 ABG pO2 ABG HCO3 ABG O2 Saturation ABG Base Excess ABG Hemoglobin Oxyhemoglobin Sodium Potassium Chloride Carbon Dioxide BUN Creatinine Glucose POC Glucose 146 H Hemoglobin A1c Lactic Acid Calcium Phosphorus Magnesium Total Bilirubin Direct Bilirubin AST ALT Alkaline Phosphatase Lactate Dehydrogenase Total Creatine Kinase Troponin T C-Reactive Protein Total Protein Albumin Triglycerides Cholesterol HDL Cholesterol Urine Creatinine Urine Total Protein Salicylates Acetaminophen 12/01/18 12/01/18 12/01/18 07:45 10:39 11:35 WBC RBC Hgb Hct RDW Lymph % (Auto) [place] % (Auto) Lymph # [place] # Seg Neutrophils % Seg Neuts % (Manual) Lymphocytes % (Manual) Nucleated RBC % Seg Neutrophils # Seg Neutrophils # Man Lymphocytes # (Manual) Monocytes # (Manual) PT INR APTT POC ABG pCO2 30.6 L ABG pO2 ABG HCO3 ABG O2 Saturation ABG Base Excess ABG Hemoglobin Oxyhemoglobin Sodium Potassium Chloride Carbon Dioxide BUN Creatinine Glucose POC Glucose 179 H 219 H Hemoglobin A1c Lactic Acid Calcium Phosphorus Magnesium Total Bilirubin Direct Bilirubin AST ALT Alkaline Phosphatase Lactate Dehydrogenase Total Creatine Kinase Troponin T C-Reactive Protein Total Protein Albumin Triglycerides Cholesterol HDL Cholesterol Urine Creatinine Urine Total Protein Salicylates Acetaminophen 12/01/18 12/01/18 12/01/18 13:45 13:45 16:33 WBC RBC Hgb Hct RDW Lymph % (Auto) [place] % (Auto) Lymph # [place] # Seg Neutrophils % Seg Neuts % (Manual) Lymphocytes % (Manual) Nucleated RBC % Seg Neutrophils # Seg Neutrophils # Man Lymphocytes # (Manual) Monocytes # (Manual) PT INR APTT POC ABG pCO2 ABG pO2 ABG HCO3 ABG O2 Saturation ABG Base Excess ABG Hemoglobin Oxyhemoglobin Sodium 136 L D Potassium Chloride Carbon Dioxide BUN 29 H Creatinine 1.9 H D Glucose 360 H POC Glucose 166 H Hemoglobin A1c Lactic Acid Calcium 8.0 L Phosphorus Magnesium Total Bilirubin Direct Bilirubin AST ALT Alkaline Phosphatase Lactate Dehydrogenase 976 H Total Creatine Kinase Troponin T C-Reactive Protein Total Protein Albumin Triglycerides Cholesterol HDL Cholesterol Urine Creatinine Urine Total Protein Salicylates Acetaminophen 12/01/18 12/01/18 12/02/18 17:40 20:04 04:45 WBC RBC Hgb Hct RDW Lymph % (Auto) [place] % (Auto) Lymph # [place] # Seg Neutrophils % Seg Neuts % (Manual) Lymphocytes % (Manual) Nucleated RBC % Seg Neutrophils # Seg Neutrophils # Man Lymphocytes # (Manual) Monocytes # (Manual) PT INR APTT 68.9 H* POC ABG pCO2 ABG pO2 ABG HCO3 ABG O2 Saturation ABG Base Excess ABG Hemoglobin Oxyhemoglobin Sodium 135 L Potassium Chloride 96.8 L Carbon Dioxide BUN 33 H Creatinine 2.0 H Glucose 302 H POC Glucose 215 H Hemoglobin A1c Lactic Acid Calcium 8.0 L Phosphorus Magnesium Total Bilirubin 2.00 H Direct Bilirubin AST 156 H ALT 183 H Alkaline Phosphatase 225 H Lactate Dehydrogenase Total Creatine Kinase Troponin T C-Reactive Protein Total Protein 5.9 L D Albumin 2.6 L Triglycerides Cholesterol HDL Cholesterol Urine Creatinine Urine Total Protein Salicylates Acetaminophen 12/02/18 12/02/18 12/02/18 04:45 05:45 07:00 WBC 23.8 H RBC 6.28 H Hgb 17.5 H Hct 53.9 H RDW 19.3 H Lymph % (Auto) [place] % (Auto) Lymph # [place] # Seg Neutrophils % Seg Neuts % (Manual) 83.0 H Lymphocytes % (Manual) 12.0 L Nucleated RBC % Seg Neutrophils # Seg Neutrophils # Man 19.8 H Lymphocytes # (Manual) Monocytes # (Manual) 1.2 H PT INR APTT 51.5 H POC ABG pCO2 ABG pO2 ABG HCO3 ABG O2 Saturation ABG Base Excess ABG Hemoglobin Oxyhemoglobin Sodium Potassium Chloride Carbon Dioxide BUN Creatinine Glucose POC Glucose 336 H Hemoglobin A1c Lactic Acid Calcium Phosphorus Magnesium Total Bilirubin Direct Bilirubin AST ALT Alkaline Phosphatase Lactate Dehydrogenase Total Creatine Kinase Troponin T C-Reactive Protein Total Protein Albumin Triglycerides Cholesterol HDL Cholesterol Urine Creatinine Urine Total Protein Salicylates Acetaminophen 12/02/18 12/02/18 12/02/18 07:30 11:07 16:24 WBC RBC Hgb Hct RDW Lymph % (Auto) [place] % (Auto) Lymph # [place] # Seg Neutrophils % Seg Neuts % (Manual) Lymphocytes % (Manual) Nucleated RBC % Seg Neutrophils # Seg Neutrophils # Man Lymphocytes # (Manual) Monocytes # (Manual) PT INR APTT POC ABG pCO2 ABG pO2 ABG HCO3 ABG O2 Saturation ABG Base Excess ABG Hemoglobin Oxyhemoglobin Sodium Potassium Chloride Carbon Dioxide BUN Creatinine Glucose POC Glucose 143 H 249 H 250 H Hemoglobin A1c Lactic Acid Calcium Phosphorus Magnesium Total Bilirubin Direct Bilirubin AST ALT Alkaline Phosphatase Lactate Dehydrogenase Total Creatine Kinase Troponin T C-Reactive Protein Total Protein Albumin Triglycerides Cholesterol HDL Cholesterol Urine Creatinine Urine Total Protein Salicylates Acetaminophen 12/02/18 12/02/18 12/03/18 19:20 21:44 04:15 WBC 20.8 H RBC 5.79 H Hgb 16.2 H Hct 49.1 H RDW 19.2 H Lymph % (Auto) [place] % (Auto) Lymph # [place] # Seg Neutrophils % Seg Neuts % (Manual) 90.0 H Lymphocytes % (Manual) 4.0 L Nucleated RBC % 6.0 H Seg Neutrophils # Seg Neutrophils # Man 18.7 H Lymphocytes # (Manual) 0.8 L Monocytes # (Manual) 1.2 H PT INR APTT 43.4 H POC ABG pCO2 ABG pO2 ABG HCO3 ABG O2 Saturation ABG Base Excess ABG Hemoglobin Oxyhemoglobin Sodium Potassium Chloride Carbon Dioxide BUN Creatinine Glucose POC Glucose 315 H Hemoglobin A1c Lactic Acid Calcium Phosphorus Magnesium Total Bilirubin Direct Bilirubin AST ALT Alkaline Phosphatase Lactate Dehydrogenase Total Creatine Kinase Troponin T C-Reactive Protein Total Protein Albumin Triglycerides Cholesterol HDL Cholesterol Urine Creatinine Urine Total Protein Salicylates Acetaminophen 12/03/18 12/03/18 12/03/18 04:15 07:35 07:48 WBC RBC Hgb Hct RDW Lymph % (Auto) [place] % (Auto) Lymph # [place] # Seg Neutrophils % Seg Neuts % (Manual) Lymphocytes % (Manual) Nucleated RBC % Seg Neutrophils # Seg Neutrophils # Man Lymphocytes # (Manual) Monocytes # (Manual) PT INR APTT 53.6 H POC ABG pCO2 ABG pO2 ABG HCO3 ABG O2 Saturation ABG Base Excess ABG Hemoglobin Oxyhemoglobin Sodium Potassium Chloride Carbon Dioxide BUN 35 H Creatinine 1.9 H Glucose 231 H POC Glucose 179 H Hemoglobin A1c Lactic Acid Calcium 8.1 L Phosphorus Magnesium Total Bilirubin Direct Bilirubin AST ALT Alkaline Phosphatase Lactate Dehydrogenase Total Creatine Kinase Troponin T C-Reactive Protein Total Protein Albumin Triglycerides Cholesterol HDL Cholesterol Urine Creatinine Urine Total Protein Salicylates Acetaminophen 12/03/18 12/03/18 12/03/18 08:01 11:23 14:33 WBC RBC Hgb Hct RDW Lymph % (Auto) [place] % (Auto) Lymph # [place] # Seg Neutrophils % Seg Neuts % (Manual) Lymphocytes % (Manual) Nucleated RBC % Seg Neutrophils # Seg Neutrophils # Man Lymphocytes # (Manual) Monocytes # (Manual) PT INR APTT POC ABG pCO2 ABG pO2 ABG HCO3 ABG O2 Saturation ABG Base Excess ABG Hemoglobin Oxyhemoglobin Sodium Potassium Chloride Carbon Dioxide BUN Creatinine Glucose POC Glucose 204 H 153 H Hemoglobin A1c Lactic Acid Calcium Phosphorus Magnesium Total Bilirubin Direct Bilirubin AST ALT Alkaline Phosphatase Lactate Dehydrogenase Total Creatine Kinase Troponin T C-Reactive Protein 7.70 H Total Protein Albumin Triglycerides Cholesterol HDL Cholesterol Urine Creatinine Urine Total Protein Salicylates Acetaminophen 12/03/18 12/04/18 12/04/18 16:23 05:21 06:00 WBC 18.1 H RBC 5.73 H Hgb 16.0 H Hct 49.0 H RDW 19.5 H Lymph % (Auto) 1.3 L [place] % (Auto) 10.5 H Lymph # 0.2 L [place] # 1.9 H Seg Neutrophils % 87.9 H Seg Neuts % (Manual) Lymphocytes % (Manual) Nucleated RBC % Seg Neutrophils # 15.9 H Seg Neutrophils # Man Lymphocytes # (Manual) Monocytes # (Manual) PT INR APTT POC ABG pCO2 ABG pO2 ABG HCO3 ABG O2 Saturation ABG Base Excess ABG Hemoglobin Oxyhemoglobin Sodium Potassium Chloride Carbon Dioxide BUN Creatinine Glucose POC Glucose 180 H 297 H Hemoglobin A1c Lactic Acid Calcium Phosphorus Magnesium Total Bilirubin Direct Bilirubin AST ALT Alkaline Phosphatase Lactate Dehydrogenase Total Creatine Kinase Troponin T C-Reactive Protein Total Protein Albumin Triglycerides Cholesterol HDL Cholesterol Urine Creatinine Urine Total Protein Salicylates Acetaminophen 12/04/18 12/04/18 12/04/18 06:00 06:00 07:57 WBC RBC Hgb Hct RDW Lymph % (Auto) [place] % (Auto) Lymph # [place] # Seg Neutrophils % Seg Neuts % (Manual) Lymphocytes % (Manual) Nucleated RBC % Seg Neutrophils # Seg Neutrophils # Man Lymphocytes # (Manual) Monocytes # (Manual) PT INR APTT 51.3 H POC ABG pCO2 ABG pO2 ABG HCO3 ABG O2 Saturation ABG Base Excess ABG Hemoglobin Oxyhemoglobin Sodium Potassium Chloride Carbon Dioxide BUN 22 H Creatinine 1.5 H Glucose 352 H POC Glucose 315 H Hemoglobin A1c Lactic Acid Calcium Phosphorus Magnesium Total Bilirubin Direct Bilirubin AST ALT Alkaline Phosphatase Lactate Dehydrogenase Total Creatine Kinase Troponin T C-Reactive Protein Total Protein Albumin Triglycerides Cholesterol HDL Cholesterol Urine Creatinine Urine Total Protein Salicylates Acetaminophen 12/04/18 12/04/18 12/04/18 11:56 16:06 21:46 WBC RBC Hgb Hct RDW Lymph % (Auto) [place] % (Auto) Lymph # [place] # Seg Neutrophils % Seg Neuts % (Manual) Lymphocytes % (Manual) Nucleated RBC % Seg Neutrophils # Seg Neutrophils # Man Lymphocytes # (Manual) Monocytes # (Manual) PT INR APTT POC ABG pCO2 ABG pO2 ABG HCO3 ABG O2 Saturation ABG Base Excess ABG Hemoglobin Oxyhemoglobin Sodium Potassium Chloride Carbon Dioxide BUN Creatinine Glucose POC Glucose 303 H 347 H 345 H Hemoglobin A1c Lactic Acid Calcium Phosphorus Magnesium Total Bilirubin Direct Bilirubin AST ALT Alkaline Phosphatase Lactate Dehydrogenase Total Creatine Kinase Troponin T C-Reactive Protein Total Protein Albumin Triglycerides Cholesterol HDL Cholesterol Urine Creatinine Urine Total Protein Salicylates Acetaminophen 12/05/18 12/05/18 12/05/18 06:10 06:51 07:54 WBC 18.8 H RBC 5.42 H Hgb 15.5 H Hct 46.1 H RDW 19.1 H Lymph % (Auto) 2.6 L [place] % (Auto) 14.8 H Lymph # 0.5 L [place] # 2.8 H Seg Neutrophils % 82.2 H Seg Neuts % (Manual) Lymphocytes % (Manual) Nucleated RBC % Seg Neutrophils # 15.5 H Seg Neutrophils # Man Lymphocytes # (Manual) Monocytes # (Manual) PT INR APTT 52.9 H POC ABG pCO2 ABG pO2 ABG HCO3 ABG O2 Saturation ABG Base Excess ABG Hemoglobin Oxyhemoglobin Sodium Potassium Chloride Carbon Dioxide BUN Creatinine Glucose POC Glucose 258 H Hemoglobin A1c Lactic Acid Calcium Phosphorus Magnesium Total Bilirubin Direct Bilirubin AST ALT Alkaline Phosphatase Lactate Dehydrogenase Total Creatine Kinase Troponin T C-Reactive Protein Total Protein Albumin Triglycerides Cholesterol HDL Cholesterol Urine Creatinine Urine Total Protein Salicylates Acetaminophen 12/05/18 12/05/18 11:26 Unknown WBC RBC Hgb Hct RDW Lymph % (Auto) [place] % (Auto) Lymph # [place] # Seg Neutrophils % Seg Neuts % (Manual) Lymphocytes % (Manual) Nucleated RBC % Seg Neutrophils # Seg Neutrophils # Man Lymphocytes # (Manual) Monocytes # (Manual) PT INR APTT POC ABG pCO2 ABG pO2 ABG HCO3 ABG O2 Saturation ABG Base Excess ABG Hemoglobin Oxyhemoglobin Sodium Potassium Chloride Carbon Dioxide BUN 18 H Creatinine Glucose 261 H POC Glucose 246 H Hemoglobin A1c Lactic Acid Calcium Phosphorus Magnesium Total Bilirubin Direct Bilirubin AST ALT Alkaline Phosphatase Lactate Dehydrogenase Total Creatine Kinase Troponin T C-Reactive Protein Total Protein Albumin Triglycerides Cholesterol HDL Cholesterol Urine Creatinine Urine Total Protein Salicylates Acetaminophen Chest x-ray: report reviewed, image reviewed
--- NOTE | 2018-12-05 17:05 | Progress Note ---
Assessment and Plan - Patient Problems (1) Acute kidney injury Current Visit: Yes Status: Acute Plan to address problem: Kidney function is now worsening. Suspect Pre-renal azotemia vs Acute tubular necrosis secondary to hypotension. Kidney function is still improving. Follow up electrolytes and renal function (2) Hypotension Current Visit: Yes Status: Acute Plan to address problem: Blood pressure has improved. Follow-up blood pressure (3) Hyperkalemia Current Visit: Yes Status: Acute Plan to address problem: Hyperkalemia on presentation improved with medical management. Follow-up electrolytes (4) Hypernatremia Current Visit: Yes Status: Acute Plan to address problem: Hypernatremia secondary to free water losses. Replace free water and follow-up sodium (5) Hyperosmolar hyperglycemic coma due to diabetes mellitus without ketoacidosi s Current Visit: Yes Status: Acute Plan to address problem: Steroid induced hyperglycemia/newly diagnosed type 2 diabetes mellitus. Blood sugar control by primary attending (6) Acrocyanosis Current Visit: Yes Status: Acute Plan to address problem: Etiology uncertain. May be related to scleroderma. Arterial Duplex shows that Diffuse peripheral vascular disease in both lower extremities with occlusive disease of the left anterior tibial and dorsalis pedis arteries. Distal disease in the left hand. 1. RODNEY showed no Thrombus. 2. Vascular input appreciated: Possible severe vasospasm the setting of scleroderma superimposed on baseline peripheral vascular disease. 3. 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 (7) Transaminasemia Current Visit: Yes Status: Acute Plan to address problem: Probable ischemic hepatitis. Follow-up liver function tests (8) Heart failure with reduced ejection fraction Current Visit: Yes Status: Acute Plan to address problem: Intravenous fluids stopped. Monitor volume status. Subjective Date of service: 12/05/18 Principal diagnosis: thrombosis Interval history: Patient seen lying in bed. Still complains of pain in her feet and hands. Family member at the bedside. No nausea or vomiting Objective - Exam Narrative Exam: Obese young -[place] female lying in bed in no acute distress HEENT: NCAT, pink oral mucous membrane Neck: Supple, no venous distention CVS: S1S2 RRR with no murmur, rub or gallop Chest: Clear to auscultation Abdomen: obese, soft, nontender, no organomegaly, bowel sounds are present Extremities: No edema, cool extremities with ischemic changes in toes, and ischemic left middle distal phalanx and nail bed Neuro: Awake, alert no focal deficits - Vital Signs Vital signs: Vital Signs - 12hr 12/05/18 12/05/18 12/05/18 05:11 05:21 05:30 Temperature Pulse Rate 77 77 75 Pulse Rate [ From Monitor] Respiratory 28 H 37 H 38 H Rate Blood Pressure 115/85 114/84 111/76 O2 Sat by Pulse 97 100 100 Oximetry 12/05/18 12/05/18 12/05/18 05:41 05:51 06:00 Temperature Pulse Rate 74 73 74 Pulse Rate [ From Monitor] Respiratory 26 H 29 H 37 H Rate Blood Pressure 114/84 110/73 107/77 O2 Sat by Pulse 100 100 100 Oximetry 12/05/18 12/05/18 12/05/18 06:11 06:21 06:30 Temperature Pulse Rate 73 75 76 Pulse Rate [ From Monitor] Respiratory 37 H 37 H 22 Rate Blood Pressure 111/76 109/75 115/83 O2 Sat by Pulse 100 99 100 Oximetry 12/05/18 12/05/18 12/05/18 06:41 06:42 06:51 Temperature Pulse Rate 79 79 80 Pulse Rate [ From Monitor] Respiratory 27 H 27 H Rate Blood Pressure 115/83 118/83 117/89 O2 Sat by Pulse 100 100 Oximetry 12/05/18 12/05/18 12/05/18 07:00 07:11 07:21 Temperature Pulse Rate 78 78 75 Pulse Rate [ From Monitor] Respiratory 24 17 14 Rate Blood Pressure 122/86 122/86 118/77 O2 Sat by Pulse 100 90 100 Oximetry 12/05/18 12/05/18 12/05/18 07:30 07:41 07:42 Temperature Pulse Rate 74 75 Pulse Rate [ 82 From Monitor] Respiratory 17 17 18 Rate Blood Pressure 116/76 116/76 O2 Sat by Pulse 100 100 100 Oximetry 12/05/18 12/05/18 12/05/18 07:51 08:00 08:11 Temperature 98.4 F Pulse Rate 72 71 70 Pulse Rate [ From Monitor] Respiratory 26 H 32 H 21 Rate Blood Pressure 111/76 107/70 107/70 O2 Sat by Pulse 100 99 87 Oximetry 12/05/18 12/05/18 12/05/18 08:21 08:30 08:41 Temperature Pulse Rate 70 70 70 Pulse Rate [ From Monitor] Respiratory 17 22 35 H Rate Blood Pressure 111/64 114/68 114/68 O2 Sat by Pulse 64 L 99 Oximetry 12/05/18 12/05/18 12/05/18 08:51 09:00 09:11 Temperature Pulse Rate 70 71 72 Pulse Rate [ From Monitor] Respiratory 35 H 24 32 H Rate Blood Pressure 110/65 110/67 110/67 O2 Sat by Pulse 100 96 95 Oximetry 12/05/18 12/05/18 12/05/18 09:21 09:30 09:38 Temperature Pulse Rate 72 72 72 Pulse Rate [ From Monitor] Respiratory 36 H 36 H Rate Blood Pressure 106/69 111/67 111/67 O2 Sat by Pulse 100 94 Oximetry 12/05/18 12/05/18 12/05/18 09:41 09:51 10:01 Temperature Pulse Rate 71 71 77 Pulse Rate [ From Monitor] Respiratory 35 H 29 H 25 H Rate Blood Pressure 111/67 110/67 126/83 O2 Sat by Pulse 92 93 77 L Oximetry 12/05/18 12/05/18 12/05/18 10:11 10:21 10:30 Temperature Pulse Rate 79 77 79 Pulse Rate [ From Monitor] Respiratory 18 25 H 12 Rate Blood Pressure 126/83 121/79 129/96 O2 Sat by Pulse 86 97 92 Oximetry 12/05/18 12/05/18 12/05/18 10:41 10:51 11:00 Temperature Pulse Rate 77 78 77 Pulse Rate [ From Monitor] Respiratory 24 13 36 H Rate Blood Pressure 129/96 106/80 102/75 O2 Sat by Pulse 79 L 96 93 Oximetry 12/05/18 12/05/18 12/05/18 11:11 11:21 11:30 Temperature Pulse Rate 76 76 78 Pulse Rate [ From Monitor] Respiratory 15 24 17 Rate Blood Pressure 102/75 106/76 121/72 O2 Sat by Pulse 94 92 96 Oximetry 12/05/18 12/05/18 12/05/18 11:41 11:51 12:00 Temperature 98.0 F Pulse Rate 75 76 76 Pulse Rate [ 88 From Monitor] Respiratory 17 13 13 Rate Blood Pressure 121/72 111/74 116/76 O2 Sat by Pulse 100 99 93 Oximetry 12/05/18 12/05/18 12/05/18 12:11 12:21 12:30 Temperature Pulse Rate 79 78 76 Pulse Rate [ From Monitor] Respiratory 17 12 17 Rate Blood Pressure 116/76 116/76 122/80 O2 Sat by Pulse 93 95 72 L Oximetry 12/05/18 12/05/18 12/05/18 12:41 12:51 13:00 Temperature Pulse Rate 76 76 75 Pulse Rate [ From Monitor] Respiratory 17 25 H 20 Rate Blood Pressure 122/80 122/83 114/79 O2 Sat by Pulse 90 100 92 Oximetry 12/05/18 12/05/18 12/05/18 13:03 13:11 13:21 Temperature Pulse Rate 76 77 77 Pulse Rate [ From Monitor] Respiratory 15 28 H Rate Blood Pressure 114/79 114/79 122/83 O2 Sat by Pulse 83 L 100 Oximetry 12/05/18 12/05/18 12/05/18 13:30 13:41 13:51 Temperature Pulse Rate 76 75 75 Pulse Rate [ From Monitor] Respiratory 17 21 22 Rate Blood Pressure 118/81 118/81 116/80 O2 Sat by Pulse 77 L 95 98 Oximetry 12/05/18 12/05/18 12/05/18 14:00 14:11 14:21 Temperature Pulse Rate 75 74 72 Pulse Rate [ From Monitor] Respiratory 23 27 H 31 H Rate Blood Pressure 118/78 118/78 120/76 O2 Sat by Pulse 100 97 91 Oximetry 12/05/18 12/05/18 12/05/18 14:30 14:41 14:51 Temperature Pulse Rate 73 72 72 Pulse Rate [ From Monitor] Respiratory 34 H 29 H 33 H Rate Blood Pressure 120/77 120/77 113/81 O2 Sat by Pulse 94 95 96 Oximetry 12/05/18 12/05/18 12/05/18 15:00 15:11 15:21 Temperature Pulse Rate 70 70 72 Pulse Rate [ From Monitor] Respiratory 20 25 H 17 Rate Blood Pressure 115/76 115/76 107/77 O2 Sat by Pulse 96 100 100 Oximetry 12/05/18 12/05/18 12/05/18 15:30 15:41 15:51 Temperature Pulse Rate 74 70 70 Pulse Rate [ From Monitor] Respiratory 21 23 34 H Rate Blood Pressure 115/73 115/73 104/66 O2 Sat by Pulse 100 100 100 Oximetry 12/05/18 12/05/18 12/05/18 16:00 16:01 16:11 Temperature 97.7 F Pulse Rate 71 71 Pulse Rate [ 83 From Monitor] Respiratory 20 29 H 36 H Rate Blood Pressure 107/77 107/77 O2 Sat by Pulse 98 62 L 100 Oximetry - Lab 12/05/18 06:10 12/05/18 Unknown Most recent lab results ABG pH 7.414 pH Units (7.350-7.450) 11/28/18 01:01 ABG pCO2 48.8 mm Hg 11/28/18 01:01 ABG pO2 65.7 mm Hg (80.0-90.0) L 11/28/18 01:01 ABG HCO3 30.5 mmol/L (20.0-26.0) H 11/28/18 01:01 ABG O2 Saturation 91.3 % (95.0-99.0) L 11/28/18 01:01 Calcium 9.1 mg/dL (8.4-10.2) 12/05/18 Unknown Phosphorus 3.30 mg/dL (2.5-4.5) 11/30/18 07:18 Magnesium 3.20 mg/dL (1.7-2.3) H 11/30/18 07:18 117.4 mg/dL (0.1-20.0) H 11/29/18 13:40 53 mmol/L 11/29/18 13:40 120 mg/dL (5-11.8) H 11/29/18 13:40 Medications & Allergies - Medications Allergies/Adverse Reactions: Allergies lisinopril Adverse Reaction (Severe, Verified 12/17/13 19:00) SORE THROAT;PERSISTENT COUGH Home Medications: Home Medications Medication Instructions Recorded Confirmed Last Taken Type Aspirin [Aspirin BABY CHEW TAB] 81 mg PO QDAY 11/28/18 11/29/18 11/26/18 History Fluticasone [Flonase] 1 spray NS BID 11/28/18 11/28/18 Unknown History Furosemide [Lasix TAB] 40 mg PO BID 11/28/18 11/28/18 Unknown History Ibuprofen [Motrin] 600 mg PO Q6H PRN 11/28/18 11/28/18 Unknown History Montelukast [Singulair] 10 mg PO QPM 11/28/18 11/28/18 Unknown History Mycophenolate [Cellcept] 500 mg PO BID 11/28/18 11/28/18 Unknown History Mycophenolate [Cellcept] 500 mg PO BID PRN MDD 2 TABS 11/28/18 11/28/18 Unknown History Pantoprazole [Protonix] 40 mg PO QDAY 11/28/18 11/28/18 Unknown History Sacubitril/Valsartan [Entresto 1 each PO BID 11/28/18 11/28/18 Unknown History 49-51 mg] predniSONE [Deltasone] 50 mg PO QDAY 11/28/18 11/28/18 Unknown History raNITIdine HCl [Zantac] 150 mg PO BID 11/28/18 11/28/18 Unknown History Amitriptyline [Elavil] 25 mg PO HS 11/29/18 11/29/18 11/26/18 History Aspirin [Adult Aspirin] 81 mg PO ONCE 11/29/18 11/29/18 11/26/18 History Entresto 49-51 mg 49 mg PO BID 11/29/18 11/29/18 11/26/18 History HYDROcodone/APAP 5-325 5 mg PO Q6HR PRN 11/29/18 11/29/18 Unknown History Active Medications: Generic Name Dose Route Start Last Admin Trade Name Freq PRN Reason Stop Dose Admin Acetaminophen 650 mg 11/28/18 03:02 Tylenol PO Q4H PRN Pain MILD(1-3)/Fever >100.5/TURPIN Alprazolam 0.25 mg 11/30/18 01:09 12/04/18 22:03 Xanax PO 0.25 mg Q8H PRN Administration Anxiety Amiodarone HCl 200 mg 12/02/18 12:00 12/05/18 09:37 Cordarone PO 200 mg BID VIOLA Administration Amitriptyline HCl 25 mg 11/29/18 22:00 12/04/18 22:03 Elavil PO 25 mg HS VIOLA Administration Aspirin 81 mg 11/29/18 10:00 12/05/18 09:52 Baby Aspirin PO 81 mg QDAY VIOLA Administration Dextrose 0 ml 11/28/18 02:19 D50w (25gm) Syringe IV PRN PRN Hypoglycemia Fluticasone Propionate 50 mcg 11/29/18 10:00 12/05/18 09:41 Flonase NS 50 mcg BID VIOLA Administration Hydralazine HCl 10 mg 11/28/18 03:41 Apresoline IV Q6HR PRN Blood Pressure Hydrophilic Ointment 1 applic 11/30/18 11:55 Vaseline Lip Therapy TP DIRECT PRN DRY LIPS Argatroban 250 mg/ Sodium 250 mls @ 3.682 mls/hr 11/29/18 13:00 12/04/18 00:26 Chloride IV 0.5 mcg/kg/min TITR VIOLA 3.682 mls/hr Administration Protocol 0.5 MCG/KG/MIN Sodium Chloride 1,000 mls @ 125 mls/hr 12/02/18 13:00 12/03/18 11:24 Nacl 0.9% 1000 Ml IV 0 mls/hr DIRECT VIOLA Infusion Insulin Human Isoph/Insulin Regular 15 unit 12/02/18 17:00 12/05/18 09:30 Humulin 70/30 SUB-Q 15 unit BIDDIAB VIOLA Administration Insulin Human Lispro 0 unit 11/30/18 09:00 12/05/18 11:37 Humalog SUB-Q 3 unit ACHS VIOLA Administration Protocol Metoprolol Tartrate 25 mg 11/30/18 14:00 12/05/18 13:03 Lopressor PO 25 mg Q8HR VIOLA Administration Montelukast Sodium 10 mg 11/29/18 18:00 12/04/18 17:02 Singulair PO 10 mg QPM VIOLA Administration Morphine Sulfate 2 mg 11/28/18 03:02 12/04/18 00:27 Morphine IV 2 mg Q4H PRN Administration Pain, Moderate (4-6) Nitroglycerin 0.75 inch 11/29/18 14:00 12/05/18 13:03 Nitro-Bid 2% TP 0.75 inch QIDNTG VIOLA Administration Protocol Ondansetron HCl 4 mg 11/28/18 03:02 Zofran IV Q8H PRN Nausea And Vomiting Pantoprazole Sodium 40 mg 11/29/18 10:00 12/05/18 09:37 Protonix PO 40 mg QDAY VIOLA Administration Pentoxifylline 400 mg 11/29/18 13:00 12/05/18 09:37 [place]al PO 400 mg Q12HR VIOLA Administration Prednisone 50 mg 11/29/18 10:00 12/05/18 09:38 Deltasone PO 50 mg QDAY VIOLA Administration Sodium Chloride 10 ml 11/28/18 10:00 12/05/18 09:35 Sodium Chloride Flush Syringe 10 Ml IV 10 ml BID VIOLA Administration Sodium Chloride 10 ml 11/28/18 03:02 Sodium Chloride Flush Syringe 10 Ml IV PRN PRN LINE FLUSH
[2018-12-05] MEDS: SINGULAIR PO SCH (17:19)
[2018-12-05] MEDS: ELAVIL PO SCH (22:10)
[2018-12-06] MEDS: ARGATROBAN 250 MG in NACL 0.9% 250ML 247.5 ML IV SCH (00:16)
[2018-12-06] MEDS: MORPHINE IV PRN (00:22)
[2018-12-06] MEDS: NITRO-BID 2% TP SCH ×4 (06:00→17:55)
[2018-12-06] MEDS: LOPRESSOR PO SCH ×3 (06:00→21:03)
[2018-12-06 06:59] LABS: Hematocrit 43.6 % (30.3-42.9); Hemoglobin 14.3 gm/dl (10.1-14.3); Mean Corpuscular HGB Conc 33 % (30-34); Mean Corpuscular Volume 85 fl (79-97); Platelet Count 218 K/mm3 (140-440); Red Blood Count 5.12 M/mm3 (3.65-5.03); Red Cell Distribution Width 19.2 % (13.2-15.2)
[2018-12-06 07:12] LABS: BUN/Creatinine Ratio 21; Blood Urea Nitrogen 19 mg/dL (7-17); Calcium 6.7 mg/dL (8.4-10.2); Hemolysis Index 4
[2018-12-06] MEDS: HumaLOG SUB-Q SCH ×4 (07:30→22:10)
--- NOTE | 2018-12-06 07:42 | Hem/Onc Progress Note ---
Assessment and Plan Peripheral extremities both lower and left upper extremity thromboembolic disease. This may be related to her generalized disease etiology versus rheumatology issue versus embolic phenomena. I had discussed with Cardiology, transthoracic echo has been done to see if there is any source of thrombus. If source is found, then oral anticoagulation is an option. At this time, the patient is on argatroban. There is a question if this is HIT. However, the platelet count is not low. HIT test has been ordered. 1. Elevated bilirubin. 2. Electrolyte imbalance. 3. Arterial thrombus, on anticoagulation. 4. Diabetic ketoacidosis. 5. Hypertension. 6. Ischemic cardiomyopathy with low ejection fraction. 7. Respiratory failure. 8. Sepsis, elevated troponin /CPK. I will follow the patient during inpatient stay and then in the clinic setting. The cause of thromboembolism is not clear. White cell count is high. There is a question if this has any relation. echo done RODNEY Done HIT negative had low BP high hct likely sec to sleep apnea dark toes - with arterial thrombus HIT neg - ? change argatroban to other forms or ct argatroban- ? Iv preferred as more procedures will be planned there is a question if her signs and symptoms are sec to rheumatology issues - Patient Problems (1) Ischemia Current Visit: Yes Status: Acute Subjective Date of service: 12/06/18 Principal diagnosis: ischemic extremities Interval history: HIT neg toes dark Objective - Exam Narrative Exam: Pain - hand and leg General appearance pain Performance status limited self care Eyes - no icterus ENT - no bleeding LNs cervical not palpable Neck - no LN Respiratory Normal Breath sounds - CTA CVS S1 S2 + Extremities cold toes and dark left hand finger General GI Soft Rectal deferred female - deferred Skin warm Musculoskeletal moving extremitites - dark foot and left hand finger Neurologically awake - Constitutional Vitals: Last Vital Signs Temp 99.0 F 12/06/18 04:00 Pulse 70 12/06/18 05:31 Resp 35 H 12/06/18 05:31 BP 103/62 12/06/18 05:31 Pulse Ox 96 12/06/18 05:31 - Labs Lab Results: Laboratory Results - last 24 hr 12/05/18 12/05/18 12/05/18 07:54 11:26 16:17 WBC RBC Hgb Hct MCV MCH MCHC RDW Plt Count Sodium Potassium Chloride Carbon Dioxide Anion Gap BUN Creatinine Estimated GFR BUN/Creatinine Ratio Glucose POC Glucose 258 H 246 H 310 H Calcium 12/05/18 12/06/18 12/06/18 22:12 06:13 06:13 WBC 16.7 H RBC 5.12 H Hgb 14.3 Hct 43.6 H MCV 85 MCH 28 MCHC 33 RDW 19.2 H Plt Count 218 Sodium 142 Potassium 3.8 D Chloride 110.9 H Carbon Dioxide 24 Anion Gap 11 BUN 19 H Creatinine 0.9 Estimated GFR > 60 BUN/Creatinine Ratio 21 Glucose 242 H POC Glucose 386 H Calcium 6.7 L D Medications & Allergies - Medications Allergies/Adverse Reactions: Allergies lisinopril Adverse Reaction (Severe, Verified 12/17/13 19:00) SORE THROAT;PERSISTENT COUGH Home Medications: Home Medications Medication Instructions Recorded Confirmed Last Taken Type Aspirin [Aspirin BABY CHEW TAB] 81 mg PO QDAY 11/28/18 11/29/18 11/26/18 History Fluticasone [Flonase] 1 spray NS BID 11/28/18 11/28/18 Unknown History Furosemide [Lasix TAB] 40 mg PO BID 11/28/18 11/28/18 Unknown History Ibuprofen [Motrin] 600 mg PO Q6H PRN 11/28/18 11/28/18 Unknown History Montelukast [Singulair] 10 mg PO QPM 11/28/18 11/28/18 Unknown History Mycophenolate [Cellcept] 500 mg PO BID 11/28/18 11/28/18 Unknown History Mycophenolate [Cellcept] 500 mg PO BID PRN MDD 2 TABS 11/28/18 11/28/18 Unknown History Pantoprazole [Protonix] 40 mg PO QDAY 11/28/18 11/28/18 Unknown History Sacubitril/Valsartan [Entresto 1 each PO BID 11/28/18 11/28/18 Unknown History 49-51 mg] predniSONE [Deltasone] 50 mg PO QDAY 11/28/18 11/28/18 Unknown History raNITIdine HCl [Zantac] 150 mg PO BID 11/28/18 11/28/18 Unknown History Amitriptyline [Elavil] 25 mg PO HS 11/29/18 11/29/18 11/26/18 History Aspirin [Adult Aspirin] 81 mg PO ONCE 11/29/18 11/29/18 11/26/18 History Entresto 49-51 mg 49 mg PO BID 11/29/18 11/29/18 11/26/18 History HYDROcodone/APAP 5-325 5 mg PO Q6HR PRN 11/29/18 11/29/18 Unknown History Active Medications: Generic Name Dose Route Start Last Admin Trade Name Freq PRN Reason Stop Dose Admin Acetaminophen 650 mg 11/28/18 03:02 Tylenol PO Q4H PRN Pain MILD(1-3)/Fever >100.5/TURPIN Alprazolam 0.25 mg 11/30/18 01:09 12/04/18 22:03 Xanax PO 0.25 mg Q8H PRN Administration Anxiety Amiodarone HCl 200 mg 12/02/18 12:00 12/05/18 22:10 Cordarone PO 200 mg BID VIOLA Administration Amitriptyline HCl 25 mg 11/29/18 22:00 12/05/18 22:10 Elavil PO 25 mg HS VIOLA Administration Aspirin 81 mg 11/29/18 10:00 12/05/18 09:52 Baby Aspirin PO 81 mg QDAY VIOLA Administration Dextrose 0 ml 11/28/18 02:19 D50w (25gm) Syringe IV PRN PRN Hypoglycemia Fluticasone Propionate 50 mcg 11/29/18 10:00 12/05/18 22:12 Flonase NS 50 mcg BID VIOLA Administration Hydralazine HCl 10 mg 11/28/18 03:41 Apresoline IV Q6HR PRN Blood Pressure Hydrophilic Ointment 1 applic 11/30/18 11:55 Vaseline Lip Therapy TP DIRECT PRN DRY LIPS Argatroban 250 mg/ Sodium 250 mls @ 3.682 mls/hr 11/29/18 13:00 12/06/18 00:16 Chloride IV 0.5 mcg/kg/min TITR VIOLA 3.682 mls/hr Administration Protocol 0.5 MCG/KG/MIN Sodium Chloride 1,000 mls @ 125 mls/hr 12/02/18 13:00 12/03/18 11:24 Nacl 0.9% 1000 Ml IV 0 mls/hr DIRECT VIOLA Infusion Insulin Human Isoph/Insulin Regular 15 unit 12/02/18 17:00 12/05/18 17:19 Humulin 70/30 SUB-Q 15 unit BIDDIAB VIOLA Administration Insulin Human Lispro 0 unit 11/30/18 09:00 12/05/18 22:11 Humalog SUB-Q 10 unit ACHS VIOLA Administration Protocol Metoprolol Tartrate 25 mg 11/30/18 14:00 12/05/18 22:10 Lopressor PO 25 mg Q8HR VIOLA Administration Montelukast Sodium 10 mg 11/29/18 18:00 12/05/18 17:19 Singulair PO 10 mg QPM VIOLA Administration Morphine Sulfate 2 mg 11/28/18 03:02 12/06/18 00:22 Morphine IV 2 mg Q4H PRN Administration Pain, Moderate (4-6) Nitroglycerin 0.75 inch 11/29/18 14:00 12/05/18 17:39 Nitro-Bid 2% TP 0.75 inch QIDNTG VIOLA Administration Protocol Ondansetron HCl 4 mg 11/28/18 03:02 Zofran IV Q8H PRN Nausea And Vomiting Pantoprazole Sodium 40 mg 11/29/18 10:00 12/05/18 09:37 Protonix PO 40 mg QDAY VIOLA Administration Pentoxifylline 400 mg 11/29/18 13:00 12/05/18 22:10 Trental PO 400 mg Q12HR VIOLA Administration Prednisone 50 mg 11/29/18 10:00 12/05/18 09:38 Deltasone PO 50 mg QDAY VIOLA Administration Sodium Chloride 10 ml 11/28/18 10:00 12/05/18 22:13 Sodium Chloride Flush Syringe 10 Ml IV 10 ml BID VIOLA Administration Sodium Chloride 10 ml 11/28/18 03:02 Sodium Chloride Flush Syringe 10 Ml IV PRN PRN LINE FLUSH
[2018-12-06] MEDS: FLONASE NS SCH ×2 (10:00→21:05)
[2018-12-06] MEDS: CORDARONE PO SCH ×2 (10:00→21:04)
[2018-12-06] MEDS: TRENTAL PO SCH ×2 (10:00→21:03)
[2018-12-06] MEDS: BABY ASPIRIN PO SCH (10:00)
[2018-12-06] MEDS: PROTONIX PO SCH (10:00)
[2018-12-06] MEDS: SODIUM CHLORIDE FLUSH SYRINGE 10 ML IV SCH ×2 (10:00→21:04)
[2018-12-06] MEDS: DELTASONE PO SCH (10:00)
[2018-12-06] MEDS: ENTRESTO 49-51 MG PO SCH ×2 (10:00→21:02)
--- NOTE | 2018-12-06 10:04 | Progress Note ---
Assessment and Plan - Patient Problems (1) Acute kidney injury Current Visit: Yes Status: Acute Plan to address problem: Suspect Pre-renal azotemia vs Acute tubular necrosis secondary to hypotension. Kidney function improved significantly, Cr down to 0.9. Follow up electrolytes and renal function (2) Hypotension Current Visit: Yes Status: Acute Plan to address problem: Blood pressure has improved. Follow-up blood pressure (3) Hyperkalemia Current Visit: Yes Status: Acute Plan to address problem: Hyperkalemia on presentation improved with medical management. Follow-up electrolytes (4) Hypernatremia Current Visit: Yes Status: Acute Plan to address problem: Hypernatremia secondary to free water losses. now resolved (5) Acrocyanosis Current Visit: Yes Status: Acute Plan to address problem: Etiology uncertain. May be related to scleroderma. Arterial Duplex shows that Diffuse peripheral vascular disease in both lower extremities with occlusive disease of the left anterior tibial and dorsalis pedis arteries. Distal disease in the left hand. 1. RODNEY showed no Thrombus. 2. Vascular input appreciated: Possible severe vasospasm the setting of scleroderma superimposed on baseline peripheral vascular disease. HIT Ab negative (6) Hyperosmolar hyperglycemic coma due to diabetes mellitus without ketoacidosis Current Visit: Yes Status: Acute Plan to address problem: Steroid induced hyperglycemia/newly diagnosed type 2 diabetes mellitus. Blood sugar control by primary attending (7) Heart failure with reduced ejection fraction Current Visit: Yes Status: Acute Plan to address problem: Intravenous fluids stopped. Monitor volume status. (8) Transaminasemia Current Visit: Yes Status: Acute Plan to address problem: Probable ischemic hepatitis. Follow-up liver function tests Subjective Date of service: 12/06/18 Principal diagnosis: ischemic extremities Interval history: Pt awake alert, denies, fever, chills, n/v/d Objective - Vital Signs Vital signs: Vital Signs - 12hr 12/05/18 12/05/18 12/05/18 22:00 22:10 22:11 Temperature Pulse Rate 75 81 80 Pulse Rate [ From Monitor] Respiratory 38 H 23 Rate Blood Pressure 118/82 118/82 118/82 O2 Sat by Pulse 98 Oximetry 12/05/18 12/05/18 12/05/18 22:21 22:30 22:41 Temperature Pulse Rate 78 81 79 Pulse Rate [ From Monitor] Respiratory 19 25 H 12 Rate Blood Pressure 116/92 115/82 115/82 O2 Sat by Pulse 100 99 Oximetry 12/05/18 12/05/18 12/05/18 22:51 23:00 23:38 Temperature Pulse Rate 79 78 75 Pulse Rate [ From Monitor] Respiratory 12 15 46 H Rate Blood Pressure 120/77 120/77 O2 Sat by Pulse 97 Oximetry 12/05/18 12/05/18 12/06/18 23:40 23:51 00:00 Temperature 98.9 F Pulse Rate 74 75 Pulse Rate [ 73 From Monitor] Respiratory 49 H 43 H 39 H Rate Blood Pressure O2 Sat by Pulse 96 96 97 Oximetry 12/06/18 12/06/18 12/06/18 00:01 00:11 00:21 Temperature Pulse Rate 73 73 72 Pulse Rate [ From Monitor] Respiratory 39 H 32 H 36 H Rate Blood Pressure O2 Sat by Pulse 97 98 97 Oximetry 12/06/18 12/06/18 12/06/18 00:31 00:41 00:51 Temperature Pulse Rate 71 70 70 Pulse Rate [ From Monitor] Respiratory 43 H 35 H 35 H Rate Blood Pressure 108/62 108/62 108/62 O2 Sat by Pulse 96 97 96 Oximetry 12/06/18 12/06/18 12/06/18 01:00 01:11 01:21 Temperature Pulse Rate 70 70 70 Pulse Rate [ From Monitor] Respiratory 22 34 H 35 H Rate Blood Pressure 112/61 108/62 108/62 O2 Sat by Pulse 97 96 97 Oximetry 12/06/18 12/06/18 12/06/18 01:31 01:41 01:51 Temperature Pulse Rate 70 70 70 Pulse Rate [ From Monitor] Respiratory 35 H 35 H 28 H Rate Blood Pressure 108/62 112/61 112/61 O2 Sat by Pulse 97 97 94 Oximetry 12/06/18 12/06/18 12/06/18 02:00 02:11 02:21 Temperature Pulse Rate 70 70 70 Pulse Rate [ From Monitor] Respiratory 30 H 35 H 26 H Rate Blood Pressure 108/68 108/68 108/68 O2 Sat by Pulse 96 96 97 Oximetry 12/06/18 12/06/18 12/06/18 02:31 02:41 02:51 Temperature Pulse Rate 70 70 70 Pulse Rate [ From Monitor] Respiratory 35 H 29 H 35 H Rate Blood Pressure 108/68 108/68 108/68 O2 Sat by Pulse 97 96 95 Oximetry 12/06/18 12/06/18 12/06/18 03:00 03:11 03:21 Temperature Pulse Rate 71 70 70 Pulse Rate [ From Monitor] Respiratory 26 H 30 H 34 H Rate Blood Pressure 104/66 104/66 104/66 O2 Sat by Pulse 96 97 96 Oximetry 12/06/18 12/06/18 12/06/18 03:31 03:41 03:51 Temperature Pulse Rate 70 70 70 Pulse Rate [ From Monitor] Respiratory 36 H 34 H 25 H Rate Blood Pressure 104/66 104/66 104/66 O2 Sat by Pulse 96 95 94 Oximetry 12/06/18 12/06/18 12/06/18 04:00 04:11 04:21 Temperature 99.0 F Pulse Rate 70 71 70 Pulse Rate [ 70 From Monitor] Respiratory 25 H 30 H 35 H Rate Blood Pressure 108/74 104/66 104/66 O2 Sat by Pulse 100 94 95 Oximetry 12/06/18 12/06/18 12/06/18 04:31 04:41 04:51 Temperature Pulse Rate 70 70 70 Pulse Rate [ From Monitor] Respiratory 35 H 35 H 33 H Rate Blood Pressure 104/66 108/74 108/74 O2 Sat by Pulse 96 96 96 Oximetry 12/06/18 12/06/18 12/06/18 05:00 05:11 05:21 Temperature Pulse Rate 70 70 70 Pulse Rate [ From Monitor] Respiratory 26 H 35 H 35 H Rate Blood Pressure 103/62 103/62 103/62 O2 Sat by Pulse 94 96 95 Oximetry 12/06/18 12/06/18 12/06/18 05:31 05:41 05:51 Temperature Pulse Rate 70 70 70 Pulse Rate [ From Monitor] Respiratory 35 H 30 H 35 H Rate Blood Pressure 103/62 103/62 103/62 O2 Sat by Pulse 96 99 95 Oximetry 12/06/18 12/06/18 12/06/18 06:00 06:11 06:21 Temperature Pulse Rate 70 70 72 Pulse Rate [ From Monitor] Respiratory 29 H 33 H 36 H Rate Blood Pressure 106/66 106/66 106/66 O2 Sat by Pulse 96 87 Oximetry 12/06/18 12/06/18 12/06/18 06:31 06:41 06:51 Temperature Pulse Rate 72 74 74 Pulse Rate [ From Monitor] Respiratory 34 H 34 H 31 H Rate Blood Pressure 106/66 106/66 106/66 O2 Sat by Pulse 95 96 95 Oximetry 12/06/18 12/06/18 12/06/18 07:00 07:11 07:21 Temperature Pulse Rate 73 73 74 Pulse Rate [ From Monitor] Respiratory 26 H 35 H 19 Rate Blood Pressure 108/73 108/73 108/73 O2 Sat by Pulse 97 95 Oximetry 12/06/18 12/06/18 12/06/18 07:31 07:41 07:51 Temperature Pulse Rate 74 72 72 Pulse Rate [ From Monitor] Respiratory 22 27 H 28 H Rate Blood Pressure 108/73 108/73 108/73 O2 Sat by Pulse 98 98 94 Oximetry 12/06/18 12/06/18 12/06/18 08:00 08:06 08:11 Temperature Pulse Rate 74 74 Pulse Rate [ From Monitor] Respiratory 33 H 37 H Rate Blood Pressure 107/74 107/74 O2 Sat by Pulse 95 93 Oximetry - General Appearance General appearance: well-developed, appears stated age, obese EENT: ATNC, PERRL, mucous membranes moist Neck: no JVD Respiratory: Present: Clear to Ascultation Cardiology: regular, S1S2 Gastrointestinal: normoactive bowel sounds, obese Integumentary: no rash, other (no edema ) Neurologic: no focal deficit, alert and oriented x3, strength 5/5, CN 3-12 intact Psychiatric: mood/affect appropriate, cooperative - Lab 12/06/18 06:13 12/06/18 06:13 Most recent lab results ABG pH 7.414 pH Units (7.350-7.450) 11/28/18 01:01 ABG pCO2 48.8 mm Hg 11/28/18 01:01 ABG pO2 65.7 mm Hg (80.0-90.0) L 11/28/18 01:01 ABG HCO3 30.5 mmol/L (20.0-26.0) H 11/28/18 01:01 ABG O2 Saturation 91.3 % (95.0-99.0) L 11/28/18 01:01 Calcium 6.7 mg/dL (8.4-10.2) L D 12/06/18 06:13 Phosphorus 3.30 mg/dL (2.5-4.5) 11/30/18 07:18 Magnesium 3.20 mg/dL (1.7-2.3) H 11/30/18 07:18 117.4 mg/dL (0.1-20.0) H 11/29/18 13:40 53 mmol/L 11/29/18 13:40 120 mg/dL (5-11.8) H 11/29/18 13:40 Medications & Allergies - Medications Allergies/Adverse Reactions: Allergies lisinopril Adverse Reaction (Severe, Verified 12/17/13 19:00) SORE THROAT;PERSISTENT COUGH Home Medications: Home Medications Medication Instructions Recorded Confirmed Last Taken Type Aspirin [Aspirin BABY CHEW TAB] 81 mg PO QDAY 11/28/18 11/29/18 11/26/18 History Fluticasone [Flonase] 1 spray NS BID 11/28/18 11/28/18 Unknown History Furosemide [Lasix TAB] 40 mg PO BID 11/28/18 11/28/18 Unknown History Ibuprofen [Motrin] 600 mg PO Q6H PRN 11/28/18 11/28/18 Unknown History Montelukast [Singulair] 10 mg PO QPM 11/28/18 11/28/18 Unknown History Mycophenolate [Cellcept] 500 mg PO BID 11/28/18 11/28/18 Unknown History Mycophenolate [Cellcept] 500 mg PO BID PRN MDD 2 TABS 11/28/18 11/28/18 Unknown History Pantoprazole [Protonix] 40 mg PO QDAY 11/28/18 11/28/18 Unknown History Sacubitril/Valsartan [Entresto 1 each PO BID 11/28/18 11/28/18 Unknown History 49-51 mg] predniSONE [Deltasone] 50 mg PO QDAY 11/28/18 11/28/18 Unknown History raNITIdine HCl [Zantac] 150 mg PO BID 11/28/18 11/28/18 Unknown History Amitriptyline [Elavil] 25 mg PO HS 11/29/18 11/29/18 11/26/18 History Aspirin [Adult Aspirin] 81 mg PO ONCE 11/29/18 11/29/18 11/26/18 History Entresto 49-51 mg 49 mg PO BID 11/29/18 11/29/18 11/26/18 History HYDROcodone/APAP 5-325 5 mg PO Q6HR PRN 11/29/18 11/29/18 Unknown History Active Medications: Generic Name Dose Route Start Last Admin Trade Name Freq PRN Reason Stop Dose Admin Acetaminophen 650 mg 11/28/18 03:02 Tylenol PO Q4H PRN Pain MILD(1-3)/Fever >100.5/TURPIN Alprazolam 0.25 mg 11/30/18 01:09 12/04/18 22:03 Xanax PO 0.25 mg Q8H PRN Administration Anxiety Amiodarone HCl 200 mg 12/02/18 12:00 12/05/18 22:10 Cordarone PO 200 mg BID VIOLA Administration Amitriptyline HCl 25 mg 11/29/18 22:00 12/05/18 22:10 Elavil PO 25 mg HS VIOLA Administration Aspirin 81 mg 11/29/18 10:00 12/05/18 09:52 Baby Aspirin PO 81 mg QDAY VIOLA Administration Dextrose 0 ml 11/28/18 02:19 D50w (25gm) Syringe IV PRN PRN Hypoglycemia Fluticasone Propionate 50 mcg 11/29/18 10:00 12/05/18 22:12 Flonase NS 50 mcg BID VIOLA Administration Hydralazine HCl 10 mg 11/28/18 03:41 Apresoline IV Q6HR PRN Blood Pressure Hydrophilic Ointment 1 applic 11/30/18 11:55 Vaseline Lip Therapy TP DIRECT PRN DRY LIPS Argatroban 250 mg/ Sodium 250 mls @ 3.682 mls/hr 11/29/18 13:00 12/06/18 00:16 Chloride IV 0.5 mcg/kg/min TITR VIOLA 3.682 mls/hr Administration Protocol 0.5 MCG/KG/MIN Sodium Chloride 1,000 mls @ 125 mls/hr 12/02/18 13:00 12/03/18 11:24 Nacl 0.9% 1000 Ml IV 0 mls/hr DIRECT VIOLA Infusion Insulin Human Isoph/Insulin Regular 15 unit 12/02/18 17:00 12/05/18 17:19 Humulin 70/30 SUB-Q 15 unit BIDDIAB VIOLA Administration Insulin Human Lispro 0 unit 11/30/18 09:00 12/05/18 22:11 Humalog SUB-Q 10 unit ACHS VIOLA Administration Protocol Metoprolol Tartrate 25 mg 11/30/18 14:00 12/06/18 06:00 Lopressor PO Not Given Q8HR VIOLA Montelukast Sodium 10 mg 11/29/18 18:00 12/05/18 17:19 Singulair PO 10 mg QPM VIOLA Administration Morphine Sulfate 2 mg 11/28/18 03:02 12/06/18 00:22 Morphine IV 2 mg Q4H PRN Administration Pain, Moderate (4-6) Nitroglycerin 0.75 inch 11/29/18 14:00 12/06/18 06:00 Nitro-Bid 2% TP Not Given QIDNTG [facility] Protocol Ondansetron HCl 4 mg 11/28/18 03:02 Zofran IV Q8H PRN Nausea And Vomiting Pantoprazole Sodium 40 mg 11/29/18 10:00 12/05/18 09:37 Protonix PO 40 mg QDAY VIOLA Administration Pentoxifylline 400 mg 11/29/18 13:00 12/05/18 22:10 Trental PO 400 mg Q12HR VIOLA Administration Prednisone 50 mg 11/29/18 10:00 12/05/18 09:38 Deltasone PO 50 mg QDAY VIOLA Administration Sodium Chloride 10 ml 11/28/18 10:00 12/05/18 22:13 Sodium Chloride Flush Syringe 10 Ml IV 10 ml BID VIOLA Administration Sodium Chloride 10 ml 11/28/18 03:02 Sodium Chloride Flush Syringe 10 Ml IV PRN PRN LINE FLUSH
[2018-12-06 10:14] LABS: Basophils % (Manual) 0 % (0.0-1.8); Eosinophils % (Manual) 0 % (0.0-4.3); Total Cells Counted 100
[2018-12-06 10:15] LABS: Hypochromasia 1+; Ovalocytes Few; Platelet Estimate Consistent w Auto; Target Cells Few
--- NOTE | 2018-12-06 11:35 | Progress Note ---
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 1. Wean FiO2 as tolerated. 2. Continue current form of anticoagulation until GALE comes back would be my suggestions. 3. Rate control per cards. 4. Follow up any new heme recs. 5. CPAP QHS Subjective Date of service: 12/06/18 Principal diagnosis: ischemic extremities Interval history: Placed back on oxygen. Remains on argatroban. GALE is not back yet but HIT antibody was negative. Objective Vital Signs - 12hr 12/05/18 12/05/18 12/05/18 23:38 23:40 23:51 Temperature Pulse Rate 75 74 75 Pulse Rate [ From Monitor] Respiratory 46 H 49 H 43 H Rate Blood Pressure O2 Sat by Pulse 97 96 96 Oximetry 12/06/18 12/06/18 12/06/18 00:00 00:01 00:11 Temperature 98.9 F Pulse Rate 73 73 Pulse Rate [ 73 From Monitor] Respiratory 39 H 39 H 32 H Rate Blood Pressure O2 Sat by Pulse 97 97 98 Oximetry 12/06/18 12/06/18 12/06/18 00:21 00:31 00:41 Temperature Pulse Rate 72 71 70 Pulse Rate [ From Monitor] Respiratory 36 H 43 H 35 H Rate Blood Pressure 108/62 108/62 O2 Sat by Pulse 97 96 97 Oximetry 12/06/18 12/06/18 12/06/18 00:51 01:00 01:11 Temperature Pulse Rate 70 70 70 Pulse Rate [ From Monitor] Respiratory 35 H 22 34 H Rate Blood Pressure 108/62 112/61 108/62 O2 Sat by Pulse 96 97 96 Oximetry 12/06/18 12/06/18 12/06/18 01:21 01:31 01:41 Temperature Pulse Rate 70 70 70 Pulse Rate [ From Monitor] Respiratory 35 H 35 H 35 H Rate Blood Pressure 108/62 108/62 112/61 O2 Sat by Pulse 97 97 97 Oximetry 12/06/18 12/06/18 12/06/18 01:51 02:00 02:11 Temperature Pulse Rate 70 70 70 Pulse Rate [ From Monitor] Respiratory 28 H 30 H 35 H Rate Blood Pressure 112/61 108/68 108/68 O2 Sat by Pulse 94 96 96 Oximetry 12/06/18 12/06/18 12/06/18 02:21 02:31 02:41 Temperature Pulse Rate 70 70 70 Pulse Rate [ From Monitor] Respiratory 26 H 35 H 29 H Rate Blood Pressure 108/68 108/68 108/68 O2 Sat by Pulse 97 97 96 Oximetry 12/06/18 12/06/18 12/06/18 02:51 03:00 03:11 Temperature Pulse Rate 70 71 70 Pulse Rate [ From Monitor] Respiratory 35 H 26 H 30 H Rate Blood Pressure 108/68 104/66 104/66 O2 Sat by Pulse 95 96 97 Oximetry 12/06/18 12/06/18 12/06/18 03:21 03:31 03:41 Temperature Pulse Rate 70 70 70 Pulse Rate [ From Monitor] Respiratory 34 H 36 H 34 H Rate Blood Pressure 104/66 104/66 104/66 O2 Sat by Pulse 96 96 95 Oximetry 12/06/18 12/06/18 12/06/18 03:51 04:00 04:11 Temperature 99.0 F Pulse Rate 70 70 71 Pulse Rate [ 70 From Monitor] Respiratory 25 H 25 H 30 H Rate Blood Pressure 104/66 108/74 104/66 O2 Sat by Pulse 94 100 94 Oximetry 12/06/18 12/06/18 12/06/18 04:21 04:31 04:41 Temperature Pulse Rate 70 70 70 Pulse Rate [ From Monitor] Respiratory 35 H 35 H 35 H Rate Blood Pressure 104/66 104/66 108/74 O2 Sat by Pulse 95 96 96 Oximetry 12/06/18 12/06/18 12/06/18 04:51 05:00 05:11 Temperature Pulse Rate 70 70 70 Pulse Rate [ From Monitor] Respiratory 33 H 26 H 35 H Rate Blood Pressure 108/74 103/62 103/62 O2 Sat by Pulse 96 94 96 Oximetry 12/06/18 12/06/18 12/06/18 05:21 05:31 05:41 Temperature Pulse Rate 70 70 70 Pulse Rate [ From Monitor] Respiratory 35 H 35 H 30 H Rate Blood Pressure 103/62 103/62 103/62 O2 Sat by Pulse 95 96 99 Oximetry 12/06/18 12/06/18 12/06/18 05:51 06:00 06:11 Temperature Pulse Rate 70 70 70 Pulse Rate [ From Monitor] Respiratory 35 H 29 H 33 H Rate Blood Pressure 103/62 106/66 106/66 O2 Sat by Pulse 95 96 Oximetry 12/06/18 12/06/18 12/06/18 06:21 06:31 06:41 Temperature Pulse Rate 72 72 74 Pulse Rate [ From Monitor] Respiratory 36 H 34 H 34 H Rate Blood Pressure 106/66 106/66 106/66 O2 Sat by Pulse 87 95 96 Oximetry 12/06/18 12/06/18 12/06/18 06:51 07:00 07:11 Temperature Pulse Rate 74 73 73 Pulse Rate [ From Monitor] Respiratory 31 H 26 H 35 H Rate Blood Pressure 106/66 108/73 108/73 O2 Sat by Pulse 95 97 Oximetry 12/06/18 12/06/18 12/06/18 07:21 07:31 07:41 Temperature Pulse Rate 74 74 72 Pulse Rate [ From Monitor] Respiratory 19 22 27 H Rate Blood Pressure 108/73 108/73 108/73 O2 Sat by Pulse 95 98 98 Oximetry 12/06/18 12/06/18 12/06/18 07:51 08:00 08:06 Temperature 98.1 F Pulse Rate 72 74 Pulse Rate [ From Monitor] Respiratory 28 H 33 H Rate Blood Pressure 108/73 107/74 O2 Sat by Pulse 94 95 Oximetry 12/06/18 12/06/18 08:11 10:00 Temperature Pulse Rate 74 75 Pulse Rate [ From Monitor] Respiratory 37 H Rate Blood Pressure 107/74 111/73 O2 Sat by Pulse 93 Oximetry Constitutional: no acute distress, alert Eyes: non-icteric ENT: oropharynx moist Neck: supple Effort: normal Ascultation: Bilateral: clear, diminished breath sounds Cardiovascular: regular rate and rhythm (no mrg) Gastrointestinal: normoactive bowel sounds, non-tender, non-distended, other (obese) Extremities: other (areas of ischemia, extremities) Neurologic: normal mental status, non-focal exam, pupils equal and round, CN II- XII normal Psychiatric: mood appropriate, affect normal CBC and BMP: 12/06/18 06:13 12/06/18 06:13 ABG, PT/INR, D-dimer: ABG POC ABG pH 7.413 (7.35-7.45) 12/01/18 10:39 ABG pH 7.414 pH Units (7.350-7.450) 11/28/18 01:01 POC ABG pCO2 30.6 (35-45) L 12/01/18 10:39 ABG pCO2 48.8 mm Hg 11/28/18 01:01 POC ABG pO2 95 (80-105) 12/01/18 10:39 ABG pO2 65.7 mm Hg (80.0-90.0) L 11/28/18 01:01 POC ABG HCO3 19.5 (22-26 mml/L) 12/01/18 10:39 POC ABG Total CO2 20 (23-27mmol/L) 12/01/18 10:39 POC ABG O2 Sat 98 12/01/18 10:39 ABG O2 Saturation 91.3 % (95.0-99.0) L 11/28/18 01:01 PT/INR, D-dimer PT 15.6 Sec. (12.2-14.9) H 11/28/18 01:01 INR 1.27 (0.87-1.13) H 11/28/18 01:01 Abnormal lab findings: Abnormal Labs 11/27/18 11/28/18 11/28/18 23:40 01:01 01:01 WBC 15.1 H RBC 6.19 H Hgb 17.4 H Hct 54.6 H RDW 19.6 H Lymph % (Auto) 6.3 L [place] % (Auto) Lymph # 0.9 L [place] # 0.9 H Seg Neutrophils % 87.2 H Seg Neuts % (Manual) Lymphocytes % (Manual) Nucleated RBC % Seg Neutrophils # 13.2 H Seg Neutrophils # Man Lymphocytes # (Manual) Monocytes # (Manual) PT 15.6 H INR 1.27 H APTT POC ABG pCO2 ABG pO2 ABG HCO3 ABG O2 Saturation ABG Base Excess ABG Hemoglobin Oxyhemoglobin Sodium Potassium Chloride Carbon Dioxide BUN Creatinine Glucose POC Glucose > 500 H Hemoglobin A1c Lactic Acid Calcium Phosphorus Magnesium Total Bilirubin Direct Bilirubin AST ALT Alkaline Phosphatase Lactate Dehydrogenase Total Creatine Kinase Troponin T C-Reactive Protein Total Protein Albumin Triglycerides Cholesterol HDL Cholesterol Urine Creatinine Urine Total Protein Salicylates Acetaminophen 11/28/18 11/28/18 11/28/18 01:01 01:01 01:01 WBC RBC Hgb Hct RDW Lymph % (Auto) [place] % (Auto) Lymph # [place] # Seg Neutrophils % Seg Neuts % (Manual) Lymphocytes % (Manual) Nucleated RBC % Seg Neutrophils # Seg Neutrophils # Man Lymphocytes # (Manual) Monocytes # (Manual) PT INR APTT POC ABG pCO2 ABG pO2 ABG HCO3 ABG O2 Saturation ABG Base Excess ABG Hemoglobin Oxyhemoglobin Sodium Potassium 5.9 H Chloride 92.9 L Carbon Dioxide BUN 20 H Creatinine 1.3 H Glucose 1088 H* POC Glucose Hemoglobin A1c Lactic Acid 3.50 H* Calcium Phosphorus Magnesium Total Bilirubin 2.40 H Direct Bilirubin 1.3 H AST ALT Alkaline Phosphatase 225 H Lactate Dehydrogenase Total Creatine Kinase Troponin T 0.030 H C-Reactive Protein Total Protein Albumin 3.8 L Triglycerides 356 H Cholesterol 200 H HDL Cholesterol 39 L Urine Creatinine Urine Total Protein Salicylates < 0.3 L Acetaminophen 11/28/18 11/28/18 11/28/18 01:01 01:01 01:01 WBC RBC Hgb Hct RDW Lymph % (Auto) [place] % (Auto) Lymph # [place] # Seg Neutrophils % Seg Neuts % (Manual) Lymphocytes % (Manual) Nucleated RBC % Seg Neutrophils # Seg Neutrophils # Man Lymphocytes # (Manual) Monocytes # (Manual) PT INR APTT POC ABG pCO2 ABG pO2 65.7 L ABG HCO3 30.5 H ABG O2 Saturation 91.3 L ABG Base Excess 4.6 H ABG Hemoglobin 18.0 H Oxyhemoglobin 88.0 L Sodium Potassium Chloride Carbon Dioxide BUN Creatinine Glucose POC Glucose Hemoglobin A1c Lactic Acid Calcium Phosphorus Magnesium 3.70 H Total Bilirubin Direct Bilirubin AST ALT Alkaline Phosphatase Lactate Dehydrogenase Total Creatine Kinase 228 H Troponin T C-Reactive Protein Total Protein Albumin Triglycerides Cholesterol HDL Cholesterol Urine Creatinine Urine Total Protein Salicylates Acetaminophen < 5.0 L 11/28/18 11/28/18 11/28/18 01:01 02:39 03:17 WBC RBC Hgb Hct RDW Lymph % (Auto) [place] % (Auto) Lymph # [place] # Seg Neutrophils % Seg Neuts % (Manual) Lymphocytes % (Manual) Nucleated RBC % Seg Neutrophils # Seg Neutrophils # Man Lymphocytes # (Manual) Monocytes # (Manual) PT INR APTT POC ABG pCO2 ABG pO2 ABG HCO3 ABG O2 Saturation ABG Base Excess ABG Hemoglobin Oxyhemoglobin Sodium Potassium Chloride Carbon Dioxide BUN Creatinine Glucose POC Glucose > 500 H Hemoglobin A1c 12.5 H Lactic Acid 3.00 H* Calcium Phosphorus Magnesium Total Bilirubin Direct Bilirubin AST ALT Alkaline Phosphatase Lactate Dehydrogenase Total Creatine Kinase Troponin T C-Reactive Protein Total Protein Albumin Triglycerides Cholesterol HDL Cholesterol Urine Creatinine Urine Total Protein Salicylates Acetaminophen 11/28/18 11/28/18 11/28/18 03:17 03:17 03:35 WBC RBC Hgb Hct RDW Lymph % (Auto) [place] % (Auto) Lymph # [place] # Seg Neutrophils % Seg Neuts % (Manual) Lymphocytes % (Manual) Nucleated RBC % Seg Neutrophils # Seg Neutrophils # Man Lymphocytes # (Manual) Monocytes # (Manual) PT INR APTT POC ABG pCO2 ABG pO2 ABG HCO3 ABG O2 Saturation ABG Base Excess ABG Hemoglobin Oxyhemoglobin Sodium Potassium 6.1 H* Chloride 97.6 L Carbon Dioxide BUN 20 H Creatinine Glucose 927 H* POC Glucose > 500 H Hemoglobin A1c Lactic Acid Calcium Phosphorus 4.70 H Magnesium 3.70 H Total Bilirubin Direct Bilirubin AST ALT Alkaline Phosphatase Lactate Dehydrogenase Total Creatine Kinase Troponin T C-Reactive Protein Total Protein Albumin Triglycerides Cholesterol HDL Cholesterol Urine Creatinine Urine Total Protein Salicylates Acetaminophen 11/28/18 11/28/18 11/28/18 04:43 05:35 06:30 WBC RBC Hgb Hct RDW Lymph % (Auto) [place] % (Auto) Lymph # [place] # Seg Neutrophils % Seg Neuts % (Manual) Lymphocytes % (Manual) Nucleated RBC % Seg Neutrophils # Seg Neutrophils # Man Lymphocytes # (Manual) Monocytes # (Manual) PT INR APTT POC ABG pCO2 ABG pO2 ABG HCO3 ABG O2 Saturation ABG Base Excess ABG Hemoglobin Oxyhemoglobin Sodium Potassium Chloride Carbon Dioxide BUN Creatinine Glucose POC Glucose > 500 H > 500 H > 500 H Hemoglobin A1c Lactic Acid Calcium Phosphorus Magnesium Total Bilirubin Direct Bilirubin AST ALT Alkaline Phosphatase Lactate Dehydrogenase Total Creatine Kinase Troponin T C-Reactive Protein Total Protein Albumin Triglycerides Cholesterol HDL Cholesterol Urine Creatinine Urine Total Protein Salicylates Acetaminophen 11/28/18 11/28/18 11/28/18 07:50 07:50 07:50 WBC RBC Hgb Hct RDW Lymph % (Auto) [place] % (Auto) Lymph # [place] # Seg Neutrophils % Seg Neuts % (Manual) Lymphocytes % (Manual) Nucleated RBC % Seg Neutrophils # Seg Neutrophils # Man Lymphocytes # (Manual) Monocytes # (Manual) PT INR APTT POC ABG pCO2 ABG pO2 ABG HCO3 ABG O2 Saturation ABG Base Excess ABG Hemoglobin Oxyhemoglobin Sodium 156 H D Potassium 3.3 L D Chloride 112.8 H Carbon Dioxide BUN Creatinine Glucose 409 H POC Glucose Hemoglobin A1c Lactic Acid 6.20 H* Calcium Phosphorus Magnesium Total Bilirubin Direct Bilirubin AST ALT Alkaline Phosphatase Lactate Dehydrogenase Total Creatine Kinase Troponin T 0.030 H D C-Reactive Protein Total Protein Albumin Triglycerides Cholesterol HDL Cholesterol Urine Creatinine Urine Total Protein Salicylates Acetaminophen 11/28/18 11/28/18 11/28/18 10:33 12:52 14:11 WBC RBC Hgb Hct RDW Lymph % (Auto) [place] % (Auto) Lymph # [place] # Seg Neutrophils % Seg Neuts % (Manual) Lymphocytes % (Manual) Nucleated RBC % Seg Neutrophils # Seg Neutrophils # Man Lymphocytes # (Manual) Monocytes # (Manual) PT INR APTT POC ABG pCO2 ABG pO2 ABG HCO3 ABG O2 Saturation ABG Base Excess ABG Hemoglobin Oxyhemoglobin Sodium Potassium Chloride Carbon Dioxide BUN Creatinine Glucose POC Glucose 411 H 204 H 119 H Hemoglobin A1c Lactic Acid Calcium Phosphorus Magnesium Total Bilirubin Direct Bilirubin AST ALT Alkaline Phosphatase Lactate Dehydrogenase Total Creatine Kinase Troponin T C-Reactive Protein Total Protein Albumin Triglycerides Cholesterol HDL Cholesterol Urine Creatinine Urine Total Protein Salicylates Acetaminophen 11/28/18 11/28/18 11/28/18 14:15 15:14 15:14 WBC RBC Hgb Hct RDW Lymph % (Auto) [place] % (Auto) Lymph # [place] # Seg Neutrophils % Seg Neuts % (Manual) Lymphocytes % (Manual) Nucleated RBC % Seg Neutrophils # Seg Neutrophils # Man Lymphocytes # (Manual) Monocytes # (Manual) PT INR APTT POC ABG pCO2 ABG pO2 ABG HCO3 ABG O2 Saturation ABG Base Excess ABG Hemoglobin Oxyhemoglobin Sodium 151 H Potassium Chloride 112.4 H Carbon Dioxide 21 L D BUN Creatinine Glucose 167 H POC Glucose Hemoglobin A1c Lactic Acid 4.80 H* 5.00 H* Calcium Phosphorus Magnesium Total Bilirubin Direct Bilirubin AST ALT Alkaline Phosphatase Lactate Dehydrogenase Total Creatine Kinase Troponin T C-Reactive Protein Total Protein Albumin Triglycerides Cholesterol HDL Cholesterol Urine Creatinine Urine Total Protein Salicylates Acetaminophen 11/28/18 11/28/18 11/28/18 15:22 16:22 17:11 WBC RBC Hgb Hct RDW Lymph % (Auto) [place] % (Auto) Lymph # [place] # Seg Neutrophils % Seg Neuts % (Manual) Lymphocytes % (Manual) Nucleated RBC % Seg Neutrophils # Seg Neutrophils # Man Lymphocytes # (Manual) Monocytes # (Manual) PT INR APTT POC ABG pCO2 ABG pO2 ABG HCO3 ABG O2 Saturation ABG Base Excess ABG Hemoglobin Oxyhemoglobin Sodium Potassium Chloride Carbon Dioxide BUN Creatinine Glucose POC Glucose 114 H 120 H 183 H Hemoglobin A1c Lactic Acid Calcium Phosphorus Magnesium Total Bilirubin Direct Bilirubin AST ALT Alkaline Phosphatase Lactate Dehydrogenase Total Creatine Kinase Troponin T C-Reactive Protein Total Protein Albumin Triglycerides Cholesterol HDL Cholesterol Urine Creatinine Urine Total Protein Salicylates Acetaminophen 11/28/18 11/28/18 11/28/18 17:17 18:18 19:26 WBC RBC Hgb Hct RDW Lymph % (Auto) [place] % (Auto) Lymph # [place] # Seg Neutrophils % Seg Neuts % (Manual) Lymphocytes % (Manual) Nucleated RBC % Seg Neutrophils # Seg Neutrophils # Man Lymphocytes # (Manual) Monocytes # (Manual) PT INR APTT POC ABG pCO2 ABG pO2 ABG HCO3 ABG O2 Saturation ABG Base Excess ABG Hemoglobin Oxyhemoglobin Sodium 151 H Potassium Chloride 112.9 H Carbon Dioxide 21 L BUN Creatinine Glucose 265 H POC Glucose 269 H 243 H Hemoglobin A1c Lactic Acid Calcium Phosphorus Magnesium Total Bilirubin Direct Bilirubin AST ALT Alkaline Phosphatase Lactate Dehydrogenase Total Creatine Kinase Troponin T C-Reactive Protein Total Protein Albumin Triglycerides Cholesterol HDL Cholesterol Urine Creatinine Urine Total Protein Salicylates Acetaminophen 11/28/18 11/28/18 11/29/18 20:45 21:44 05:55 WBC 29.7 H RBC 5.93 H Hgb 16.6 H Hct 51.0 H RDW 19.7 H Lymph % (Auto) [place] % (Auto) Lymph # [place] # Seg Neutrophils % Seg Neuts % (Manual) 93.0 H Lymphocytes % (Manual) 4.0 L Nucleated RBC % Seg Neutrophils # Seg Neutrophils # Man 27.6 H Lymphocytes # (Manual) Monocytes # (Manual) 0.9 H PT INR APTT POC ABG pCO2 ABG pO2 ABG HCO3 ABG O2 Saturation ABG Base Excess ABG Hemoglobin Oxyhemoglobin Sodium Potassium Chloride Carbon Dioxide BUN Creatinine Glucose POC Glucose 177 H 124 H Hemoglobin A1c Lactic Acid Calcium Phosphorus Magnesium Total Bilirubin Direct Bilirubin AST ALT Alkaline Phosphatase Lactate Dehydrogenase Total Creatine Kinase Troponin T C-Reactive Protein Total Protein Albumin Triglycerides Cholesterol HDL Cholesterol Urine Creatinine Urine Total Protein Salicylates Acetaminophen 11/29/18 11/29/18 11/29/18 06:42 07:36 09:08 WBC RBC Hgb Hct RDW Lymph % (Auto) [place] % (Auto) Lymph # [place] # Seg Neutrophils % Seg Neuts % (Manual) Lymphocytes % (Manual) Nucleated RBC % Seg Neutrophils # Seg Neutrophils # Man Lymphocytes # (Manual) Monocytes # (Manual) PT INR APTT POC ABG pCO2 ABG pO2 ABG HCO3 ABG O2 Saturation ABG Base Excess ABG Hemoglobin Oxyhemoglobin Sodium 152 H Potassium 5.4 H Chloride 110.6 H Carbon Dioxide 20 L BUN 20 H Creatinine 1.6 H Glucose 237 H POC Glucose 118 H 146 H Hemoglobin A1c Lactic Acid Calcium Phosphorus Magnesium Total Bilirubin 3.80 H Direct Bilirubin AST 351 H ALT 123 H Alkaline Phosphatase 222 H Lactate Dehydrogenase Total Creatine Kinase Troponin T C-Reactive Protein Total Protein Albumin 3.5 L Triglycerides Cholesterol HDL Cholesterol Urine Creatinine Urine Total Protein Salicylates Acetaminophen 11/29/18 11/29/18 11/29/18 11:00 11:44 13:40 WBC RBC Hgb Hct RDW Lymph % (Auto) [place] % (Auto) Lymph # [place] # Seg Neutrophils % Seg Neuts % (Manual) Lymphocytes % (Manual) Nucleated RBC % Seg Neutrophils # Seg Neutrophils # Man Lymphocytes # (Manual) Monocytes # (Manual) PT INR APTT POC ABG pCO2 ABG pO2 ABG HCO3 ABG O2 Saturation ABG Base Excess ABG Hemoglobin Oxyhemoglobin Sodium 155 H Potassium 5.8 H Chloride 110.1 H Carbon Dioxide 15 L BUN 21 H Creatinine 1.4 H Glucose 204 H POC Glucose 203 H Hemoglobin A1c Lactic Acid Calcium Phosphorus Magnesium Total Bilirubin 3.70 H Direct Bilirubin AST 361 H ALT 125 H Alkaline Phosphatase 227 H Lactate Dehydrogenase Total Creatine Kinase Troponin T C-Reactive Protein Total Protein Albumin 3.4 L Triglycerides Cholesterol HDL Cholesterol Urine Creatinine 117.4 H Urine Total Protein 120 H Salicylates Acetaminophen 11/29/18 11/29/18 11/29/18 16:29 16:46 16:46 WBC RBC Hgb Hct RDW Lymph % (Auto) [place] % (Auto) Lymph # [place] # Seg Neutrophils % Seg Neuts % (Manual) Lymphocytes % (Manual) Nucleated RBC % Seg Neutrophils # Seg Neutrophils # Man Lymphocytes # (Manual) Monocytes # (Manual) PT INR APTT 49.5 H POC ABG pCO2 ABG pO2 ABG HCO3 ABG O2 Saturation ABG Base Excess ABG Hemoglobin Oxyhemoglobin Sodium 148 H Potassium Chloride 108.3 H Carbon Dioxide 21 L BUN 22 H Creatinine 1.4 H Glucose 152 H POC Glucose 158 H Hemoglobin A1c Lactic Acid Calcium Phosphorus Magnesium Total Bilirubin Direct Bilirubin AST ALT Alkaline Phosphatase Lactate Dehydrogenase Total Creatine Kinase Troponin T C-Reactive Protein Total Protein Albumin Triglycerides Cholesterol HDL Cholesterol Urine Creatinine Urine Total Protein Salicylates Acetaminophen 11/29/18 11/29/18 11/30/18 22:02 23:58 05:51 WBC RBC Hgb Hct RDW Lymph % (Auto) [place] % (Auto) Lymph # [place] # Seg Neutrophils % Seg Neuts % (Manual) Lymphocytes % (Manual) Nucleated RBC % Seg Neutrophils # Seg Neutrophils # Man Lymphocytes # (Manual) Monocytes # (Manual) PT INR APTT 63.2 H* POC ABG pCO2 ABG pO2 ABG HCO3 ABG O2 Saturation ABG Base Excess ABG Hemoglobin Oxyhemoglobin Sodium Potassium Chloride Carbon Dioxide BUN Creatinine Glucose POC Glucose 183 H 156 H Hemoglobin A1c Lactic Acid Calcium Phosphorus Magnesium Total Bilirubin Direct Bilirubin AST ALT Alkaline Phosphatase Lactate Dehydrogenase Total Creatine Kinase Troponin T C-Reactive Protein Total Protein Albumin Triglycerides Cholesterol HDL Cholesterol Urine Creatinine Urine Total Protein Salicylates Acetaminophen 11/30/18 11/30/18 11/30/18 07:18 07:58 09:40 WBC 28.8 H RBC 6.58 H Hgb 18.2 H Hct 57.2 H* D RDW 19.3 H Lymph % (Auto) [place] % (Auto) Lymph # [place] # Seg Neutrophils % Seg Neuts % (Manual) Lymphocytes % (Manual) Nucleated RBC % Seg Neutrophils # Seg Neutrophils # Man Lymphocytes # (Manual) Monocytes # (Manual) PT INR APTT POC ABG pCO2 ABG pO2 ABG HCO3 ABG O2 Saturation ABG Base Excess ABG Hemoglobin Oxyhemoglobin Sodium 150 H Potassium Chloride 110.3 H Carbon Dioxide 20 L BUN Creatinine Glucose 149 H POC Glucose 190 H Hemoglobin A1c Lactic Acid Calcium Phosphorus Magnesium 3.20 H Total Bilirubin 3.70 H Direct Bilirubin AST 480 H ALT 213 H Alkaline Phosphatase 258 H Lactate Dehydrogenase Total Creatine Kinase Troponin T C-Reactive Protein Total Protein Albumin 3.4 L Triglycerides Cholesterol HDL Cholesterol Urine Creatinine Urine Total Protein Salicylates Acetaminophen 11/30/18 11/30/18 11/30/18 11:24 12:17 16:22 WBC RBC Hgb Hct RDW Lymph % (Auto) [place] % (Auto) Lymph # [place] # Seg Neutrophils % Seg Neuts % (Manual) Lymphocytes % (Manual) Nucleated RBC % Seg Neutrophils # Seg Neutrophils # Man Lymphocytes # (Manual) Monocytes # (Manual) PT INR APTT 62.1 H* POC ABG pCO2 ABG pO2 ABG HCO3 ABG O2 Saturation ABG Base Excess ABG Hemoglobin Oxyhemoglobin Sodium Potassium Chloride Carbon Dioxide BUN Creatinine Glucose POC Glucose 242 H 165 H Hemoglobin A1c Lactic Acid Calcium Phosphorus Magnesium Total Bilirubin Direct Bilirubin AST ALT Alkaline Phosphatase Lactate Dehydrogenase Total Creatine Kinase Troponin T C-Reactive Protein Total Protein Albumin Triglycerides Cholesterol HDL Cholesterol Urine Creatinine Urine Total Protein Salicylates Acetaminophen 11/30/18 12/01/18 12/01/18 21:32 05:32 05:32 WBC 24.7 H RBC 6.30 H Hgb 17.8 H Hct 54.2 H RDW 19.2 H Lymph % (Auto) [place] % (Auto) Lymph # [place] # Seg Neutrophils % Seg Neuts % (Manual) 87.0 H Lymphocytes % (Manual) 10.0 L Nucleated RBC % 2.0 H Seg Neutrophils # Seg Neutrophils # Man 21.5 H Lymphocytes # (Manual) Monocytes # (Manual) PT INR APTT 50.0 H POC ABG pCO2 ABG pO2 ABG HCO3 ABG O2 Saturation ABG Base Excess ABG Hemoglobin Oxyhemoglobin Sodium Potassium Chloride Carbon Dioxide BUN Creatinine Glucose POC Glucose 146 H Hemoglobin A1c Lactic Acid Calcium Phosphorus Magnesium Total Bilirubin Direct Bilirubin AST ALT Alkaline Phosphatase Lactate Dehydrogenase Total Creatine Kinase Troponin T C-Reactive Protein Total Protein Albumin Triglycerides Cholesterol HDL Cholesterol Urine Creatinine Urine Total Protein Salicylates Acetaminophen 12/01/18 12/01/18 12/01/18 07:45 10:39 11:35 WBC RBC Hgb Hct RDW Lymph % (Auto) [place] % (Auto) Lymph # [place] # Seg Neutrophils % Seg Neuts % (Manual) Lymphocytes % (Manual) Nucleated RBC % Seg Neutrophils # Seg Neutrophils # Man Lymphocytes # (Manual) Monocytes # (Manual) PT INR APTT POC ABG pCO2 30.6 L ABG pO2 ABG HCO3 ABG O2 Saturation ABG Base Excess ABG Hemoglobin Oxyhemoglobin Sodium Potassium Chloride Carbon Dioxide BUN Creatinine Glucose POC Glucose 179 H 219 H Hemoglobin A1c Lactic Acid Calcium Phosphorus Magnesium Total Bilirubin Direct Bilirubin AST ALT Alkaline Phosphatase Lactate Dehydrogenase Total Creatine Kinase Troponin T C-Reactive Protein Total Protein Albumin Triglycerides Cholesterol HDL Cholesterol Urine Creatinine Urine Total Protein Salicylates Acetaminophen 12/01/18 12/01/18 12/01/18 13:45 13:45 16:33 WBC RBC Hgb Hct RDW Lymph % (Auto) [place] % (Auto) Lymph # [place] # Seg Neutrophils % Seg Neuts % (Manual) Lymphocytes % (Manual) Nucleated RBC % Seg Neutrophils # Seg Neutrophils # Man Lymphocytes # (Manual) Monocytes # (Manual) PT INR APTT POC ABG pCO2 ABG pO2 ABG HCO3 ABG O2 Saturation ABG Base Excess ABG Hemoglobin Oxyhemoglobin Sodium 136 L D Potassium Chloride Carbon Dioxide BUN 29 H Creatinine 1.9 H D Glucose 360 H POC Glucose 166 H Hemoglobin A1c Lactic Acid Calcium 8.0 L Phosphorus Magnesium Total Bilirubin Direct Bilirubin AST ALT Alkaline Phosphatase Lactate Dehydrogenase 976 H Total Creatine Kinase Troponin T C-Reactive Protein Total Protein Albumin Triglycerides Cholesterol HDL Cholesterol Urine Creatinine Urine Total Protein Salicylates Acetaminophen 12/01/18 12/01/18 12/02/18 17:40 20:04 04:45 WBC RBC Hgb Hct RDW Lymph % (Auto) [place] % (Auto) Lymph # [place] # Seg Neutrophils % Seg Neuts % (Manual) Lymphocytes % (Manual) Nucleated RBC % Seg Neutrophils # Seg Neutrophils # Man Lymphocytes # (Manual) Monocytes # (Manual) PT INR APTT 68.9 H* POC ABG pCO2 ABG pO2 ABG HCO3 ABG O2 Saturation ABG Base Excess ABG Hemoglobin Oxyhemoglobin Sodium 135 L Potassium Chloride 96.8 L Carbon Dioxide BUN 33 H Creatinine 2.0 H Glucose 302 H POC Glucose 215 H Hemoglobin A1c Lactic Acid Calcium 8.0 L Phosphorus Magnesium Total Bilirubin 2.00 H Direct Bilirubin AST 156 H ALT 183 H Alkaline Phosphatase 225 H Lactate Dehydrogenase Total Creatine Kinase Troponin T C-Reactive Protein Total Protein 5.9 L D Albumin 2.6 L Triglycerides Cholesterol HDL Cholesterol Urine Creatinine Urine Total Protein Salicylates Acetaminophen 12/02/18 12/02/18 12/02/18 04:45 05:45 07:00 WBC 23.8 H RBC 6.28 H Hgb 17.5 H Hct 53.9 H RDW 19.3 H Lymph % (Auto) [place] % (Auto) Lymph # [place] # Seg Neutrophils % Seg Neuts % (Manual) 83.0 H Lymphocytes % (Manual) 12.0 L Nucleated RBC % Seg Neutrophils # Seg Neutrophils # Man 19.8 H Lymphocytes # (Manual) Monocytes # (Manual) 1.2 H PT INR APTT 51.5 H POC ABG pCO2 ABG pO2 ABG HCO3 ABG O2 Saturation ABG Base Excess ABG Hemoglobin Oxyhemoglobin Sodium Potassium Chloride Carbon Dioxide BUN Creatinine Glucose POC Glucose 336 H Hemoglobin A1c Lactic Acid Calcium Phosphorus Magnesium Total Bilirubin Direct Bilirubin AST ALT Alkaline Phosphatase Lactate Dehydrogenase Total Creatine Kinase Troponin T C-Reactive Protein Total Protein Albumin Triglycerides Cholesterol HDL Cholesterol Urine Creatinine Urine Total Protein Salicylates Acetaminophen 12/02/18 12/02/18 12/02/18 07:30 11:07 16:24 WBC RBC Hgb Hct RDW Lymph % (Auto) [place] % (Auto) Lymph # [place] # Seg Neutrophils % Seg Neuts % (Manual) Lymphocytes % (Manual) Nucleated RBC % Seg Neutrophils # Seg Neutrophils # Man Lymphocytes # (Manual) Monocytes # (Manual) PT INR APTT POC ABG pCO2 ABG pO2 ABG HCO3 ABG O2 Saturation ABG Base Excess ABG Hemoglobin Oxyhemoglobin Sodium Potassium Chloride Carbon Dioxide BUN Creatinine Glucose POC Glucose 143 H 249 H 250 H Hemoglobin A1c Lactic Acid Calcium Phosphorus Magnesium Total Bilirubin Direct Bilirubin AST ALT Alkaline Phosphatase Lactate Dehydrogenase Total Creatine Kinase Troponin T C-Reactive Protein Total Protein Albumin Triglycerides Cholesterol HDL Cholesterol Urine Creatinine Urine Total Protein Salicylates Acetaminophen 12/02/18 12/02/18 12/03/18 19:20 21:44 04:15 WBC 20.8 H RBC 5.79 H Hgb 16.2 H Hct 49.1 H RDW 19.2 H Lymph % (Auto) [place] % (Auto) Lymph # [place] # Seg Neutrophils % Seg Neuts % (Manual) 90.0 H Lymphocytes % (Manual) 4.0 L Nucleated RBC % 6.0 H Seg Neutrophils # Seg Neutrophils # Man 18.7 H Lymphocytes # (Manual) 0.8 L Monocytes # (Manual) 1.2 H PT INR APTT 43.4 H POC ABG pCO2 ABG pO2 ABG HCO3 ABG O2 Saturation ABG Base Excess ABG Hemoglobin Oxyhemoglobin Sodium Potassium Chloride Carbon Dioxide BUN Creatinine Glucose POC Glucose 315 H Hemoglobin A1c Lactic Acid Calcium Phosphorus Magnesium Total Bilirubin Direct Bilirubin AST ALT Alkaline Phosphatase Lactate Dehydrogenase Total Creatine Kinase Troponin T C-Reactive Protein Total Protein Albumin Triglycerides Cholesterol HDL Cholesterol Urine Creatinine Urine Total Protein Salicylates Acetaminophen 12/03/18 12/03/18 12/03/18 04:15 07:35 07:48 WBC RBC Hgb Hct RDW Lymph % (Auto) [place] % (Auto) Lymph # [place] # Seg Neutrophils % Seg Neuts % (Manual) Lymphocytes % (Manual) Nucleated RBC % Seg Neutrophils # Seg Neutrophils # Man Lymphocytes # (Manual) Monocytes # (Manual) PT INR APTT 53.6 H POC ABG pCO2 ABG pO2 ABG HCO3 ABG O2 Saturation ABG Base Excess ABG Hemoglobin Oxyhemoglobin Sodium Potassium Chloride Carbon Dioxide BUN 35 H Creatinine 1.9 H Glucose 231 H POC Glucose 179 H Hemoglobin A1c Lactic Acid Calcium 8.1 L Phosphorus Magnesium Total Bilirubin Direct Bilirubin AST ALT Alkaline Phosphatase Lactate Dehydrogenase Total Creatine Kinase Troponin T C-Reactive Protein Total Protein Albumin Triglycerides Cholesterol HDL Cholesterol Urine Creatinine Urine Total Protein Salicylates Acetaminophen 12/03/18 12/03/18 12/03/18 08:01 11:23 14:33 WBC RBC Hgb Hct RDW Lymph % (Auto) [place] % (Auto) Lymph # [place] # Seg Neutrophils % Seg Neuts % (Manual) Lymphocytes % (Manual) Nucleated RBC % Seg Neutrophils # Seg Neutrophils # Man Lymphocytes # (Manual) Monocytes # (Manual) PT INR APTT POC ABG pCO2 ABG pO2 ABG HCO3 ABG O2 Saturation ABG Base Excess ABG Hemoglobin Oxyhemoglobin Sodium Potassium Chloride Carbon Dioxide BUN Creatinine Glucose POC Glucose 204 H 153 H Hemoglobin A1c Lactic Acid Calcium Phosphorus Magnesium Total Bilirubin Direct Bilirubin AST ALT Alkaline Phosphatase Lactate Dehydrogenase Total Creatine Kinase Troponin T C-Reactive Protein 7.70 H Total Protein Albumin Triglycerides Cholesterol HDL Cholesterol Urine Creatinine Urine Total Protein Salicylates Acetaminophen 12/03/18 12/04/18 12/04/18 16:23 05:21 06:00 WBC 18.1 H RBC 5.73 H Hgb 16.0 H Hct 49.0 H RDW 19.5 H Lymph % (Auto) 1.3 L [place] % (Auto) 10.5 H Lymph # 0.2 L [place] # 1.9 H Seg Neutrophils % 87.9 H Seg Neuts % (Manual) Lymphocytes % (Manual) Nucleated RBC % Seg Neutrophils # 15.9 H Seg Neutrophils # Man Lymphocytes # (Manual) Monocytes # (Manual) PT INR APTT POC ABG pCO2 ABG pO2 ABG HCO3 ABG O2 Saturation ABG Base Excess ABG Hemoglobin Oxyhemoglobin Sodium Potassium Chloride Carbon Dioxide BUN Creatinine Glucose POC Glucose 180 H 297 H Hemoglobin A1c Lactic Acid Calcium Phosphorus Magnesium Total Bilirubin Direct Bilirubin AST ALT Alkaline Phosphatase Lactate Dehydrogenase Total Creatine Kinase Troponin T C-Reactive Protein Total Protein Albumin Triglycerides Cholesterol HDL Cholesterol Urine Creatinine Urine Total Protein Salicylates Acetaminophen 12/04/18 12/04/18 12/04/18 06:00 06:00 07:57 WBC RBC Hgb Hct RDW Lymph % (Auto) [place] % (Auto) Lymph # [place] # Seg Neutrophils % Seg Neuts % (Manual) Lymphocytes % (Manual) Nucleated RBC % Seg Neutrophils # Seg Neutrophils # Man Lymphocytes # (Manual) Monocytes # (Manual) PT INR APTT 51.3 H POC ABG pCO2 ABG pO2 ABG HCO3 ABG O2 Saturation ABG Base Excess ABG Hemoglobin Oxyhemoglobin Sodium Potassium Chloride Carbon Dioxide BUN 22 H Creatinine 1.5 H Glucose 352 H POC Glucose 315 H Hemoglobin A1c Lactic Acid Calcium Phosphorus Magnesium Total Bilirubin Direct Bilirubin AST ALT Alkaline Phosphatase Lactate Dehydrogenase Total Creatine Kinase Troponin T C-Reactive Protein Total Protein Albumin Triglycerides Cholesterol HDL Cholesterol Urine Creatinine Urine Total Protein Salicylates Acetaminophen 12/04/18 12/04/18 12/04/18 11:56 16:06 21:46 WBC RBC Hgb Hct RDW Lymph % (Auto) [place] % (Auto) Lymph # [place] # Seg Neutrophils % Seg Neuts % (Manual) Lymphocytes % (Manual) Nucleated RBC % Seg Neutrophils # Seg Neutrophils # Man Lymphocytes # (Manual) Monocytes # (Manual) PT INR APTT POC ABG pCO2 ABG pO2 ABG HCO3 ABG O2 Saturation ABG Base Excess ABG Hemoglobin Oxyhemoglobin Sodium Potassium Chloride Carbon Dioxide BUN Creatinine Glucose POC Glucose 303 H 347 H 345 H Hemoglobin A1c Lactic Acid Calcium Phosphorus Magnesium Total Bilirubin Direct Bilirubin AST ALT Alkaline Phosphatase Lactate Dehydrogenase Total Creatine Kinase Troponin T C-Reactive Protein Total Protein Albumin Triglycerides Cholesterol HDL Cholesterol Urine Creatinine Urine Total Protein Salicylates Acetaminophen 12/05/18 12/05/18 12/05/18 06:10 06:51 07:54 WBC 18.8 H RBC 5.42 H Hgb 15.5 H Hct 46.1 H RDW 19.1 H Lymph % (Auto) 2.6 L [place] % (Auto) 14.8 H Lymph # 0.5 L [place] # 2.8 H Seg Neutrophils % 82.2 H Seg Neuts % (Manual) Lymphocytes % (Manual) Nucleated RBC % Seg Neutrophils # 15.5 H Seg Neutrophils # Man Lymphocytes # (Manual) Monocytes # (Manual) PT INR APTT 52.9 H POC ABG pCO2 ABG pO2 ABG HCO3 ABG O2 Saturation ABG Base Excess ABG Hemoglobin Oxyhemoglobin Sodium Potassium Chloride Carbon Dioxide BUN Creatinine Glucose POC Glucose 258 H Hemoglobin A1c Lactic Acid Calcium Phosphorus Magnesium Total Bilirubin Direct Bilirubin AST ALT Alkaline Phosphatase Lactate Dehydrogenase Total Creatine Kinase Troponin T C-Reactive Protein Total Protein Albumin Triglycerides Cholesterol HDL Cholesterol Urine Creatinine Urine Total Protein Salicylates Acetaminophen 12/05/18 12/05/18 12/05/18 11:26 16:17 22:12 WBC RBC Hgb Hct RDW Lymph % (Auto) [place] % (Auto) Lymph # [place] # Seg Neutrophils % Seg Neuts % (Manual) Lymphocytes % (Manual) Nucleated RBC % Seg Neutrophils # Seg Neutrophils # Man Lymphocytes # (Manual) Monocytes # (Manual) PT INR APTT POC ABG pCO2 ABG pO2 ABG HCO3 ABG O2 Saturation ABG Base Excess ABG Hemoglobin Oxyhemoglobin Sodium Potassium Chloride Carbon Dioxide BUN Creatinine Glucose POC Glucose 246 H 310 H 386 H Hemoglobin A1c Lactic Acid Calcium Phosphorus Magnesium Total Bilirubin Direct Bilirubin AST ALT Alkaline Phosphatase Lactate Dehydrogenase Total Creatine Kinase Troponin T C-Reactive Protein Total Protein Albumin Triglycerides Cholesterol HDL Cholesterol Urine Creatinine Urine Total Protein Salicylates Acetaminophen 12/05/18 12/06/18 12/06/18 Unknown 06:13 06:13 WBC 16.7 H RBC 5.12 H Hgb Hct 43.6 H RDW 19.2 H Lymph % (Auto) [place] % (Auto) Lymph # [place] # Seg Neutrophils % Seg Neuts % (Manual) 89.0 H Lymphocytes % (Manual) 5.0 L Nucleated RBC % Seg Neutrophils # Seg Neutrophils # Man 14.9 H Lymphocytes # (Manual) 0.8 L Monocytes # (Manual) 1.0 H PT INR APTT POC ABG pCO2 ABG pO2 ABG HCO3 ABG O2 Saturation ABG Base Excess ABG Hemoglobin Oxyhemoglobin Sodium Potassium Chloride 110.9 H Carbon Dioxide BUN 18 H 19 H Creatinine Glucose 261 H 242 H POC Glucose Hemoglobin A1c Lactic Acid Calcium 6.7 L D Phosphorus Magnesium Total Bilirubin Direct Bilirubin AST ALT Alkaline Phosphatase Lactate Dehydrogenase Total Creatine Kinase Troponin T C-Reactive Protein Total Protein Albumin Triglycerides Cholesterol HDL Cholesterol Urine Creatinine Urine Total Protein Salicylates Acetaminophen 12/06/18 09:45 WBC RBC Hgb Hct RDW Lymph % (Auto) [place] % (Auto) Lymph # [place] # Seg Neutrophils % Seg Neuts % (Manual) Lymphocytes % (Manual) Nucleated RBC % Seg Neutrophils # Seg Neutrophils # Man Lymphocytes # (Manual) Monocytes # (Manual) PT INR APTT POC ABG pCO2 ABG pO2 ABG HCO3 ABG O2 Saturation ABG Base Excess ABG Hemoglobin Oxyhemoglobin Sodium Potassium Chloride Carbon Dioxide BUN Creatinine Glucose POC Glucose 277 H Hemoglobin A1c Lactic Acid Calcium Phosphorus Magnesium Total Bilirubin Direct Bilirubin AST ALT Alkaline Phosphatase Lactate Dehydrogenase Total Creatine Kinase Troponin T C-Reactive Protein Total Protein Albumin Triglycerides Cholesterol HDL Cholesterol Urine Creatinine Urine Total Protein Salicylates Acetaminophen
--- NOTE | 2018-12-06 14:34 | Progress Note ---
Assessment and Plan - Patient Problems (1) Nonsustained ventricular tachycardia Current Visit: Yes Status: Acute Plan to address problem: Continue amiodarone, cardiac defibrillator in situ. (2) Nonischemic cardiomyopathy Current Visit: Yes Status: Acute Plan to address problem: Guidelines directed medical therapy as tolerated by clinical condition. Subjective Date of service: 12/06/18 Principal diagnosis: ischemic extremities Interval history: Patient is sedated, on the vent. Rhythm is mild sinus tachycardia. Objective Vital Signs Temp Pulse Pulse Resp BP Pulse Ox 12/06/18 10:00 75 111/73 12/06/18 08:11 74 37 H 107/74 93 12/06/18 08:06 95 12/06/18 08:00 98.1 F 74 33 H 107/74 12/06/18 07:51 72 28 H 108/73 94 12/06/18 07:41 72 27 H 108/73 98 12/06/18 07:31 74 22 108/73 98 12/06/18 07:21 74 19 108/73 95 12/06/18 07:11 73 35 H 108/73 97 12/06/18 07:00 73 26 H 108/73 12/06/18 06:51 74 31 H 106/66 95 12/06/18 06:41 74 34 H 106/66 96 12/06/18 06:31 72 34 H 106/66 95 12/06/18 06:21 72 36 H 106/66 87 12/06/18 06:11 70 33 H 106/66 96 12/06/18 06:00 70 29 H 106/66 12/06/18 05:51 70 35 H 103/62 95 12/06/18 05:41 70 30 H 103/62 99 12/06/18 05:31 70 35 H 103/62 96 12/06/18 05:21 70 35 H 103/62 95 12/06/18 05:11 70 35 H 103/62 96 12/06/18 05:00 70 26 H 103/62 94 12/06/18 04:51 70 33 H 108/74 96 12/06/18 04:41 70 35 H 108/74 96 12/06/18 04:31 70 35 H 104/66 96 12/06/18 04:21 70 35 H 104/66 95 12/06/18 04:11 71 30 H 104/66 94 12/06/18 04:00 99.0 F 70 70 25 H 108/74 100 12/06/18 03:51 70 25 H 104/66 94 12/06/18 03:41 70 34 H 104/66 95 12/06/18 03:31 70 36 H 104/66 96 12/06/18 03:21 70 34 H 104/66 96 12/06/18 03:11 70 30 H 104/66 97 12/06/18 03:00 71 26 H 104/66 96 12/06/18 02:51 70 35 H 108/68 95 12/06/18 02:41 70 29 H 108/68 96 12/06/18 02:31 70 35 H 108/68 97 12/06/18 02:21 70 26 H 108/68 97 12/06/18 02:11 70 35 H 108/68 96 12/06/18 02:00 70 30 H 108/68 96 12/06/18 01:51 70 28 H 112/61 94 12/06/18 01:41 70 35 H 112/61 97 12/06/18 01:31 70 35 H 108/62 97 12/06/18 01:21 70 35 H 108/62 97 12/06/18 01:11 70 34 H 108/62 96 12/06/18 01:00 70 22 112/61 97 12/06/18 00:51 70 35 H 108/62 96 12/06/18 00:41 70 35 H 108/62 97 12/06/18 00:31 71 43 H 108/62 96 12/06/18 00:21 72 36 H 97 12/06/18 00:11 73 32 H 98 12/06/18 00:01 73 39 H 97 12/06/18 00:00 98.9 F 73 39 H 97 12/05/18 23:51 75 43 H 96 12/05/18 23:40 74 49 H 96 12/05/18 23:38 75 46 H 97 12/05/18 23:00 78 15 120/77 12/05/18 22:51 79 12 120/77 12/05/18 22:41 79 12 115/82 99 12/05/18 22:30 81 25 H 115/82 100 12/05/18 22:21 78 19 116/92 12/05/18 22:11 80 23 118/82 98 12/05/18 22:10 81 118/82 12/05/18 22:00 75 38 H 118/82 12/05/18 21:51 72 26 H 114/67 12/05/18 21:41 73 40 H 105/71 12/05/18 21:30 73 36 H 105/71 76 L 12/05/18 21:25 100 12/05/18 21:21 74 28 H 118/78 12/05/18 21:11 74 45 H 117/75 78 L 12/05/18 21:00 73 33 H 108/71 12/05/18 20:51 75 34 H 117/75 12/05/18 20:41 73 35 H 109/69 12/05/18 20:30 73 35 H 109/69 12/05/18 20:20 73 24 114/78 12/05/18 20:11 74 33 H 108/67 12/05/18 20:00 98.8 F 74 37 H 108/67 96 12/05/18 19:51 75 43 H 106/71 100 12/05/18 19:41 75 20 114/78 77 L 12/05/18 19:30 76 46 H 109/72 100 12/05/18 19:21 77 42 H 106/69 79 L 12/05/18 19:11 77 28 H 114/78 100 12/05/18 19:00 78 37 H 114/78 99 12/05/18 18:51 52 H 114/76 67 L 12/05/18 18:41 33 H 115/80 98 12/05/18 18:30 22 115/80 97 12/05/18 18:21 46 H 118/84 100 12/05/18 18:11 79 48 H 121/84 99 12/05/18 18:00 78 51 H 121/84 48 L 12/05/18 17:51 74 36 H 119/87 68 L 12/05/18 17:41 74 50 H 118/85 96 12/05/18 17:30 74 15 118/85 81 L 12/05/18 17:29 98 12/05/18 17:21 77 27 H 114/84 85 12/05/18 17:11 77 20 106/65 51 L 12/05/18 17:00 74 16 106/65 95 12/05/18 16:51 74 20 111/72 100 12/05/18 16:41 74 13 103/61 100 12/05/18 16:31 103/61 100 12/05/18 16:21 71 36 H 113/67 99 12/05/18 16:11 71 36 H 107/77 100 12/05/18 16:01 71 29 H 107/77 62 L 12/05/18 16:00 97.7 F 83 20 98 12/05/18 15:51 70 34 H 104/66 100 12/05/18 15:41 70 23 115/73 100 12/05/18 15:30 74 21 115/73 100 12/05/18 15:21 72 17 107/77 100 12/05/18 15:11 70 25 H 115/76 100 12/05/18 15:00 70 20 115/76 96 12/05/18 14:51 72 33 H 113/81 96 12/05/18 14:41 72 29 H 120/77 95 - Physical Examination General: Other (sedated, on the vent) HEENT: Positive: PERRL Neck: Positive: trachea midline Cardiac: Positive: Regular Rhythm Lungs: Positive: Decreased Breath Sounds Neuro: Positive: Other (sedated, on the vent) Abdomen: Positive: Soft Skin: Positive: Clear Extremities: Absent: edema - Labs and Meds CBC 12/06/18 Range/Units 06:13 WBC 16.7 H (4.5-11.0) K/mm3 RBC 5.12 H (3.65-5.03) M/mm3 Hgb 14.3 (10.1-14.3) gm/dl Hct 43.6 H (30.3-42.9) % Plt Count 218 (140-440) K/mm3 Comprehensive Metabolic Panel 12/06/18 Range/Units 06:13 Sodium 142 (137-145) mmol/L Potassium 3.8 D (3.6-5.0) mmol/L Chloride 110.9 H (98-107) mmol/L Carbon Dioxide 24 (22-30) mmol/L BUN 19 H (7-17) mg/dL Creatinine 0.9 (0.7-1.2) mg/dL Glucose 242 H (65-100) mg/dL Calcium 6.7 L D (8.4-10.2) mg/dL
--- NOTE | 2018-12-06 15:24 | Progress Note ---
Assessment and Plan Assessment and plan: Ischemic lower > upper extremity. Vas Surgery following, Dr. Hernandez Cont. 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 Anti-ccp Hyperosmolar hyperglycemic state (HHS) in a newly diagnosed Diabetes-new onset -Patient was admitted to the ICU on insulin drip, now off Insulin drip -Continue serial BMP level monitoring -Cont. Novolin 70/30 Diabetes mellitus type 2-new onset Sepsis -CT abd/pelvis showed generalized bronchiectasis -Blood cultures no growth Vtach s/p shocked 8 tiemes by AICD, as per interrogation, notes in paper chart Cont. Amiodarone cardiology following, b-ernesto added RODNEY planned for Thursday morning Metabolic encephalopathy, resolved -Head CT scan negative -We'll monitor clinically Acute hypoxic respiratory failure. O2 and BiPAP as clinically indicated. CATRACHO Continue CPAP during sleep and when necessary. Interstitial lung disease. Continue per pulmonary. Systemic sclerosis Elevated troponin -Probably secondary to demand ischemia due to acute process -We'll continue serial troponin and EKG monitoring EDGARDO -Probably vasomotor nephropathy due to dehydration -On IV fluid, will monitor creatinine level -Nephrology following Abnormal LFT -Probably due to acute process -CT abd/pelvis negative for liver pathology -We'll monitor levels Hypertension -Stable -On when necessary hydralazine Cardiomyopathy with EF of 20-25% -Status post AICD placement -No acute exacerbation GERD -On famotidine DVT prophylaxis with heparin Partient has systemic sclerosis, sees a Repairer Shoe Sticks Was on Cellcept, but I did not resume because it may cause thrombosis Full code status History Interval history: No new issues overnight Hospitalist Physical - Constitutional Vitals: Temp Pulse Resp BP Pulse Ox 98.1 F 72 37 H 112/79 93 12/06/18 08:00 12/06/18 14:00 12/06/18 08:11 12/06/18 14:00 12/06/18 08:11 General appearance: Present: other (drowsy postop) - EENT Eyes: Present: PERRL, EOM intact ENT: hearing intact, clear oral mucosa, dentition normal - Neck Neck: Present: supple, normal ROM - Respiratory Respiratory effort: normal Respiratory: bilateral: CTA - Cardiovascular Rhythm: regular Heart Sounds: Present: S1 & S2. Absent: gallop, rub - Extremities Extremities: No edema, Full ROM Extremity abnormal: cyanosis, other (ischemic lower extremities) - Abdominal General gastrointestinal: soft, non-tender, non-distended, normal bowel sounds - Integumentary Integumentary: Present: clear, warm, dry - Neurologic Neurologic: CNII-XII intact, moves all extremities Results - Labs CBC & Chem 7: 12/06/18 06:13 12/06/18 06:13 Labs: Laboratory Last Values WBC 16.7 K/mm3 (4.5-11.0) H 12/06/18 06:13 RBC 5.12 M/mm3 (3.65-5.03) H 12/06/18 06:13 Hgb 14.3 gm/dl (10.1-14.3) 12/06/18 06:13 Hct 43.6 % (30.3-42.9) H 12/06/18 06:13 MCV 85 fl (79-97) 12/06/18 06:13 MCH 28 pg (28-32) 12/06/18 06:13 MCHC 33 % (30-34) 12/06/18 06:13 RDW 19.2 % (13.2-15.2) H 12/06/18 06:13 Plt Count 218 K/mm3 (140-440) 12/06/18 06:13 Lymph % (Auto) 2.6 % (13.4-35.0) L 12/05/18 06:10 [place] % (Auto) 14.8 % (0.0-7.3) H 12/05/18 06:10 Eos % (Auto) 0.1 % (0.0-4.3) 12/05/18 06:10 Baso % (Auto) 0.3 % (0.0-1.8) 12/05/18 06:10 Lymph # 0.5 K/mm3 (1.2-5.4) L 12/05/18 06:10 [place] # 2.8 K/mm3 (0.0-0.8) H 12/05/18 06:10 Eos # 0.0 K/mm3 (0.0-0.4) 12/05/18 06:10 Baso # 0.1 K/mm3 (0.0-0.1) 12/05/18 06:10 Add Manual Diff Complete 12/06/18 06:13 Total Counted 100 12/06/18 06:13 Seg Neutrophils % 82.2 % (40.0-70.0) H 12/05/18 06:10 Seg Neuts % (Manual) 89.0 % (40.0-70.0) H 12/06/18 06:13 0 % 12/06/18 06:13 5.0 % (13.4-35.0) L 12/06/18 06:13 Reactive Lymphs % (Man) 0 % 12/06/18 06:13 6.0 % (0.0-7.3) 12/06/18 06:13 0 % (0.0-4.3) 12/06/18 06:13 0 % (0.0-1.8) 12/06/18 06:13 0 % 12/06/18 06:13 0 % 12/06/18 06:13 0 % 12/06/18 06:13 0 % 12/06/18 06:13 Nucleated RBC % Not Reportable 12/06/18 06:13 Seg Neutrophils # 15.5 K/mm3 (1.8-7.7) H 12/05/18 06:10 Seg Neutrophils # Man 14.9 K/mm3 (1.8-7.7) H 12/06/18 06:13 Band Neutrophils # 0.0 K/mm3 12/06/18 06:13 0.8 K/mm3 (1.2-5.4) L 12/06/18 06:13 Abs React Lymphs (Man) 0.0 K/mm3 12/06/18 06:13 1.0 K/mm3 (0.0-0.8) H 12/06/18 06:13 0.0 K/mm3 (0.0-0.4) 12/06/18 06:13 0.0 K/mm3 (0.0-0.1) 12/06/18 06:13 0.0 K/mm3 12/06/18 06:13 0.0 K/mm3 12/06/18 06:13 0.0 K/mm3 12/06/18 06:13 Blast Cells # 0.0 K/mm3 12/06/18 06:13 WBC Morphology Not Reportable 12/06/18 06:13 Hypersegmented Neuts Not Reportable 12/06/18 06:13 Hyposegmented Neuts Not Reportable 12/06/18 06:13 Hypogranular Neuts Not Reportable 12/06/18 06:13 Not Reportable 12/06/18 06:13 Not Reportable 12/06/18 06:13 Not Reportable 12/06/18 06:13 Not Reportable 12/06/18 06:13 Not Reportable 12/06/18 06:13 Not Reportable 12/06/18 06:13 Consistent w auto 12/06/18 06:13 Not Reportable 12/06/18 06:13 Plt Clumps, EDTA Not Reportable 12/06/18 06:13 Not Reportable 12/06/18 06:13 Not Reportable 12/06/18 06:13 Not Reportable 12/06/18 06:13 Plt Morphology Comment Not Reportable 12/06/18 06:13 RBC Morphology Not Reportable 12/06/18 06:13 Dimorphic RBCs Not Reportable 12/06/18 06:13 Not Reportable 12/06/18 06:13 1+ 12/06/18 06:13 Not Reportable 12/06/18 06:13 Not Reportable 12/06/18 06:13 Not Reportable 12/06/18 06:13 Not Reportable 12/06/18 06:13 Not Reportable 12/06/18 06:13 Not Reportable 12/06/18 06:13 Not Reportable 12/06/18 06:13 Few 12/06/18 06:13 Not Reportable 12/06/18 06:13 Few 12/06/18 06:13 Not Reportable 12/06/18 06:13 Not Reportable 12/06/18 06:13 Not Reportable 12/06/18 06:13 Not Reportable 12/06/18 06:13 Not Reportable 12/06/18 06:13 Not Reportable 12/06/18 06:13 Not Reportable 12/06/18 06:13 Acanthocytes (Spur) Not Reportable 12/06/18 06:13 Rouleaux Not Reportable 12/06/18 06:13 Not Reportable 12/06/18 06:13 Not Reportable 12/06/18 06:13 Not Reportable 12/06/18 06:13 ESR 1 mm/Hr (0-20) 12/03/18 14:33 Not Reportable 12/06/18 06:13 Hem Pathologist Commnt No 12/06/18 06:13 PT 15.6 Sec. (12.2-14.9) H 11/28/18 01:01 INR 1.27 (0.87-1.13) H 11/28/18 01:01 APTT 52.9 Sec. (24.2-36.6) H 12/05/18 06:51 Heparin Anti-Xa, Unfract Negative (Negative) 11/29/18 16:46 POC ABG pH 7.413 (7.35-7.45) 12/01/18 10:39 ABG pH 7.414 pH Units (7.350-7.450) 11/28/18 01:01 POC ABG pCO2 30.6 (35-45) L 12/01/18 10:39 ABG pCO2 48.8 mm Hg 11/28/18 01:01 POC ABG pO2 95 (80-105) 12/01/18 10:39 ABG pO2 65.7 mm Hg (80.0-90.0) L 11/28/18 01:01 POC ABG HCO3 19.5 (22-26 mml/L) 12/01/18 10:39 ABG HCO3 30.5 mmol/L (20.0-26.0) H 11/28/18 01:01 POC ABG Total CO2 20 (23-27mmol/L) 12/01/18 10:39 POC ABG O2 Sat 98 12/01/18 10:39 ABG O2 Saturation 91.3 % (95.0-99.0) L 11/28/18 01:01 ABG O2 Content 22.2 (0.0-44) 11/28/18 01:01 POC ABG Base Excess -5 ((-2) - (+3)mmol/L) 12/01/18 10:39 ABG Base Excess 4.6 mmol/L (-2.0-3.0) H 11/28/18 01:01 ABG Hemoglobin 18.0 gm/dl (12.0-16.0) H 11/28/18 01:01 ABG Carboxyhemoglobin 3.1 % (0.0-5.0) 11/28/18 01:01 ABG Methemoglobin 0.5 % (0.0-1.5) 11/28/18 01:01 VBG pH 7.414 (7.320-7.420) 11/28/18 01:01 88.0 % (95.0-99.0) L 11/28/18 01:01 28 % 12/01/18 10:39 Sodium 142 mmol/L (137-145) 12/06/18 06:13 Potassium 3.8 mmol/L (3.6-5.0) D 12/06/18 06:13 Chloride 110.9 mmol/L (98-107) H 12/06/18 06:13 Carbon Dioxide 24 mmol/L (22-30) 12/06/18 06:13 11 mmol/L 12/06/18 06:13 BUN 19 mg/dL (7-17) H 12/06/18 06:13 0.9 mg/dL (0.7-1.2) 12/06/18 06:13 Estimated GFR > 60 ml/min 12/06/18 06:13 21 % 12/06/18 06:13 Glucose 242 mg/dL (65-100) H 12/06/18 06:13 POC Glucose 264 (70-105) H 12/06/18 11:59 12.5 % (4-6) H 11/28/18 01:01 Lactic Acid 5.00 mmol/L (0.7-2.0) H* 11/28/18 15:14 Calcium 6.7 mg/dL (8.4-10.2) L D 12/06/18 06:13 Phosphorus 3.30 mg/dL (2.5-4.5) 11/30/18 07:18 Magnesium 3.20 mg/dL (1.7-2.3) H 11/30/18 07:18 2.00 mg/dL (0.1-1.2) H 12/02/18 04:45 1.3 mg/dL (0-0.2) H 11/28/18 01:01 1.1 mg/dL 11/28/18 01:01 AST 156 units/L (5-40) H 12/02/18 04:45 ALT 183 units/L (7-56) H 12/02/18 04:45 225 units/L (35-129) H 12/02/18 04:45 30.0 umol/L (25-60) 11/28/18 01:01 976 units/L (91-180) H 12/01/18 13:45 228 units/L (30-135) H 11/28/18 01:01 0.030 ng/mL (0.00-0.029) H D 11/28/18 07:50 7.70 mg/dL (0.00-1.30) H 12/03/18 14:33 5.9 g/dL (6.3-8.2) L D 12/02/18 04:45 2.6 g/dL (3.9-5) L 12/02/18 04:45 0.8 % 12/02/18 04:45 Triglycerides 356 mg/dL (2-149) H 11/28/18 01:01 Cholesterol 200 mg/dL (50-199) H 11/28/18 01:01 125 mg/dL (50-130) 11/28/18 01:01 39 mg/dL (40-59) L 11/28/18 01:01 5.12 % 11/28/18 01:01 TSH 0.288 mlU/mL (0.270-4.200) 11/28/18 01:01 HCG, Quant < 2 mIU/mL (0-4) 11/28/18 01:01 Straw (Yellow) 11/28/18 00:37 Clear (Clear) 11/28/18 00:37 7.0 (5.0-7.0) 11/28/18 00:37 Ur Specific [place] 1.023 (1.003-1.030) 11/28/18 00:37 30 mg/dl mg/dL (Negative) 11/28/18 00:37 >=500 mg/dL (Negative) 11/28/18 00:37 Tr mg/dL (Negative) 11/28/18 00:37 Sm (Negative) 11/28/18 00:37 Neg (Negative) 11/28/18 00:37 Neg (Negative) 11/28/18 00:37 < 2.0 mg/dL (<2.0) 11/28/18 00:37 Ur Leukocyte Esterase Neg (Negative) 11/28/18 00:37 < 1.0 /HPF (0.0-6.0) 11/28/18 00:37 1.0 /HPF (0.0-6.0) 11/28/18 00:37 None seen (None Seen) 11/29/18 13:40 117.4 mg/dL (0.1-20.0) H 11/29/18 13:40 53 mmol/L 11/29/18 13:40 120 mg/dL (5-11.8) H 11/29/18 13:40 Urine HCG, Qual Negative (Negative) 11/28/18 Unknown Salicylates < 0.3 mg/dL (2.8-20.0) L 11/28/18 01:01 Presumptive negative 11/28/18 00:37 Presumptive negative 11/28/18 00:37 Acetaminophen < 5.0 ug/mL (10.0-30.0) L 11/28/18 01:01 Ur Barbiturates Screen Presumptive negative 11/28/18 00:37 Ur Phencyclidine Scrn Presumptive negative 11/28/18 00:37 Ur Amphetamines Screen Presumptive negative 11/28/18 00:37 U Benzodiazepines Scrn Presumptive negative 11/28/18 00:37 Presumptive negative 11/28/18 00:37 U Marijuana (THC) Screen Presumptive negative 11/28/18 00:37 Disclamer 11/28/18 00:37 Plasma/Serum Alcohol < 0.01 % (0-0.07) 11/28/18 01:01 13 IU/ml (0-13) 12/03/18 14:33 Heparin-induced Plt Ab Negative (Negative) 11/29/18 16:46 UF Heparin High Dose 18 % Release 11/29/18 16:46 GALE UFH Low Dose 0.1 12 % Release 11/29/18 16:46 GALE UFH Low Dose 0.5 16 % Release 11/29/18 16:46 Blood Type B POSITIVE 11/28/18 01:01 Antibody Screen Negative 11/28/18 01:01 Active Medications - Current Medications Current Medications: Generic Name Dose Route Start Last Admin Trade Name Freq PRN Reason Stop Dose Admin Acetaminophen 650 mg 11/28/18 03:02 Tylenol PO Q4H PRN Pain MILD(1-3)/Fever >100.5/TURPIN Alprazolam 0.25 mg 11/30/18 01:09 12/04/18 22:03 Xanax PO 0.25 mg Q8H PRN Administration Anxiety Amiodarone HCl 200 mg 12/02/18 12:00 12/06/18 10:00 Cordarone PO 200 mg BID VIOLA Administration Amitriptyline HCl 25 mg 11/29/18 22:00 12/05/18 22:10 Elavil PO 25 mg HS VIOLA Administration Aspirin 81 mg 11/29/18 10:00 12/06/18 10:00 Baby Aspirin PO 81 mg QDAY VIOLA Administration Dextrose 0 ml 11/28/18 02:19 D50w (25gm) Syringe IV PRN PRN Hypoglycemia Fluticasone Propionate 50 mcg 11/29/18 10:00 12/06/18 10:00 Flonase NS 50 mcg BID VIOLA Administration Hydralazine HCl 10 mg 11/28/18 03:41 Apresoline IV Q6HR PRN Blood Pressure Hydrophilic Ointment 1 applic 11/30/18 11:55 Vaseline Lip Therapy TP DIRECT PRN DRY LIPS Argatroban 250 mg/ Sodium 250 mls @ 3.682 mls/hr 11/29/18 13:00 12/06/18 00:16 Chloride IV 0.5 mcg/kg/min TITR VIOLA 3.682 mls/hr Administration Protocol 0.5 MCG/KG/MIN Sodium Chloride 1,000 mls @ 125 mls/hr 12/02/18 13:00 12/03/18 11:24 Nacl 0.9% 1000 Ml IV 0 mls/hr DIRECT VIOLA Infusion Insulin Human Isoph/Insulin Regular 15 unit 12/02/18 17:00 12/06/18 08:00 Humulin 70/30 SUB-Q 15 unit BIDDIAB VIOLA Administration Insulin Human Lispro 0 unit 11/30/18 09:00 12/06/18 11:30 Humalog SUB-Q 4 unit ACHS VIOLA Administration Protocol Metoprolol Tartrate 25 mg 11/30/18 14:00 12/06/18 14:00 Lopressor PO 25 mg Q8HR VIOLA Administration Montelukast Sodium 10 mg 11/29/18 18:00 12/05/18 17:19 Singulair PO 10 mg QPM VIOLA Administration Morphine Sulfate 2 mg 11/28/18 03:02 12/06/18 00:22 Morphine IV 2 mg Q4H PRN Administration Pain, Moderate (4-6) Nitroglycerin 0.75 inch 11/29/18 14:00 12/06/18 14:00 Nitro-Bid 2% TP 0.75 inch QIDNTG VIOLA Administration Protocol Ondansetron HCl 4 mg 11/28/18 03:02 Zofran IV Q8H PRN Nausea And Vomiting Pantoprazole Sodium 40 mg 11/29/18 10:00 12/06/18 10:00 Protonix PO 40 mg QDAY VIOLA Administration Pentoxifylline 400 mg 11/29/18 13:00 12/06/18 10:00 Trental PO 400 mg Q12HR VIOLA Administration Prednisone 50 mg 11/29/18 10:00 12/06/18 10:00 Deltasone PO 50 mg QDAY VIOLA Administration Sodium Chloride 10 ml 11/28/18 10:00 12/06/18 10:00 Sodium Chloride Flush Syringe 10 Ml IV 10 ml BID VIOLA Administration Sodium Chloride 10 ml 11/28/18 03:02 Sodium Chloride Flush Syringe 10 Ml IV PRN PRN LINE FLUSH Nutrition/Malnutrition Assess - Dietary Evaluation Nutrition/Malnutrition Findings: Nutrition Notes Start: 11/29/18 14:34 Freq: Status: Active Protocol: Document 11/29/18 14:35 LM (Rec: 11/29/18 14:40 LM [id number]) Nutrition Notes Need for Assessment generated from: Education Initial or Follow up Brief Note Current Diagnosis Diabetes,Hypertension Subjective/Other Information Consult for DM education. #1 Nutrition Diagnosis Food and nutrition-related knowledge deficit Etiology No prior DM diet education As Evidenced by Signs and Symptoms Pt statement of needing DM diet education, HGB A1C of 12. 5, BG 203 Nutrition Intervention Teaching Recipient Patient Learning Readiness Good Teaching Methods Discussion,Handout Education Handouts Provided Carbohydrate Counting for People with Diabetes RD phone number provided Yes Patient aware of follow up options Yes Revisit per MD consult or patient Sign Off request:
[2018-12-06] MEDS: SINGULAIR PO SCH (17:55)
--- NOTE | 2018-12-06 18:41 | Consultation ---
History of Present Illness - [facility] Consult date: 12/06/18 Consult reason: other History of present illness: 38-year-old female with history of hypertension and non-ischemic cardiomyopathy who was brought to the ED via EMS on account of generalized weakness. reportedly that for the 2 days prior to admission, the patient has been having nausea with vomiting times multiple episodes, generalized weakness and poor oral intake. Eventually he noticed some bluish discoloration of her feet which prompted him to call 911. Past History Past Medical History: arthritis, GERD, hypertension, other (non-ischemic cardiomyopathy status post AICD placement) Past Surgical History: Other (cholecystectomy, AICD placement, back surgery) Social history: no significant social history (no reported history of tobacco, alcohol or illicit drug use) Family history: other (could not be obtained due to altered mental status) Medications and Allergies Allergies Allergy/AdvReac Type Severity Reaction Status Date / Time lisinopril AdvReac Severe SORE Verified 12/17/13 19:00 THROAT;PERSISTENT COUGH Home Medications Medication Instructions Recorded Confirmed Last Taken Type Aspirin [Aspirin BABY CHEW TAB] 81 mg PO QDAY 11/28/18 11/29/18 11/26/18 History Fluticasone [Flonase] 1 spray NS BID 11/28/18 11/28/18 Unknown History Furosemide [Lasix TAB] 40 mg PO BID 11/28/18 11/28/18 Unknown History Ibuprofen [Motrin] 600 mg PO Q6H PRN 11/28/18 11/28/18 Unknown History Montelukast [Singulair] 10 mg PO QPM 11/28/18 11/28/18 Unknown History Mycophenolate [Cellcept] 500 mg PO BID 11/28/18 11/28/18 Unknown History Mycophenolate [Cellcept] 500 mg PO BID PRN MDD 2 TABS 11/28/18 11/28/18 Unknown History Pantoprazole [Protonix] 40 mg PO QDAY 11/28/18 11/28/18 Unknown History Sacubitril/Valsartan [Entresto 1 each PO BID 11/28/18 11/28/18 Unknown History 49-51 mg] predniSONE [Deltasone] 50 mg PO QDAY 11/28/18 11/28/18 Unknown History raNITIdine HCl [Zantac] 150 mg PO BID 11/28/18 11/28/18 Unknown History Amitriptyline [Elavil] 25 mg PO HS 11/29/18 11/29/18 11/26/18 History Aspirin [Adult Aspirin] 81 mg PO ONCE 11/29/18 11/29/18 11/26/18 History Entresto 49-51 mg 49 mg PO BID 11/29/18 11/29/18 11/26/18 History HYDROcodone/APAP 5-325 5 mg PO Q6HR PRN 11/29/18 11/29/18 Unknown History Active Meds: Active Medications Acetaminophen (Tylenol) 650 mg PO Q4H PRN PRN Reason: Pain MILD(1-3)/Fever >100.5/TURPIN Alprazolam (Xanax) 0.25 mg PO Q8H PRN PRN Reason: Anxiety Last Admin: 12/04/18 22:03 Dose: 0.25 mg Documented by: Amiodarone HCl (Cordarone) 200 mg PO BID [facility] Last Admin: 12/06/18 10:00 Dose: 200 mg Documented by: Amitriptyline HCl (Elavil) 25 mg PO HS [facility] Last Admin: 12/05/18 22:10 Dose: 25 mg Documented by: Aspirin (Baby Aspirin) 81 mg PO QDAY [facility] Last Admin: 12/06/18 10:00 Dose: 81 mg Documented by: Dextrose (D50w (25gm) Syringe) 0 ml IV PRN PRN PRN Reason: Hypoglycemia Fluticasone Propionate (Flonase) 50 mcg NS BID [facility] Last Admin: 12/06/18 10:00 Dose: 50 mcg Documented by: Hydralazine HCl (Apresoline) 10 mg IV Q6HR PRN PRN Reason: Blood Pressure Hydrophilic Ointment (Vaseline Lip Therapy) 1 applic TP DIRECT PRN PRN Reason: DRY LIPS Argatroban 250 mg/ Sodium (Chloride) 250 mls @ 3.682 mls/hr IV TITR [facility]; Protocol Last Titration: 12/06/18 17:00 Dose: 0.5 mcg/kg/min, 3.682 mls/hr Documented by: Sodium Chloride (Nacl 0.9% 1000 Ml) 1,000 mls @ 125 mls/hr IV DIRECT [facility] Last Infusion: 12/03/18 11:24 Dose: 0 mls/hr Documented by: Insulin Human Isoph/Insulin Regular (Humulin 70/30) 15 unit SUB-Q BIDDIAB [facility] Last Admin: 12/06/18 17:00 Dose: 15 unit Documented by: Insulin Human Lispro (Humalog) 0 unit SUB-Q ACHS [facility]; Protocol Last Admin: 12/06/18 16:30 Dose: 4 unit Documented by: Metoprolol Tartrate (Lopressor) 25 mg PO Q8HR [facility] Last Admin: 12/06/18 14:00 Dose: 25 mg Documented by: Montelukast Sodium (Singulair) 10 mg PO QPM [facility] Last Admin: 12/06/18 17:55 Dose: 10 mg Documented by: Morphine Sulfate (Morphine) 2 mg IV Q4H PRN PRN Reason: Pain, Moderate (4-6) Last Admin: 12/06/18 00:22 Dose: 2 mg Documented by: Nitroglycerin (Nitro-Bid 2%) 0.75 inch TP QIDNTG [facility]; Protocol Last Admin: 12/06/18 17:55 Dose: 0.75 inch Documented by: Ondansetron HCl (Zofran) 4 mg IV Q8H PRN PRN Reason: Nausea And Vomiting Pantoprazole Sodium (Protonix) 40 mg PO QDAY [facility] Last Admin: 12/06/18 10:00 Dose: 40 mg Documented by: Pentoxifylline (Trental) 400 mg PO Q12HR [facility] Last Admin: 12/06/18 10:00 Dose: 400 mg Documented by: Prednisone (Deltasone) 50 mg PO QDAY [facility] Last Admin: 12/06/18 10:00 Dose: 50 mg Documented by: Sodium Chloride (Sodium Chloride Flush Syringe 10 Ml) 10 ml IV BID [facility] Last Admin: 12/06/18 10:00 Dose: 10 ml Documented by: Sodium Chloride (Sodium Chloride Flush Syringe 10 Ml) 10 ml IV PRN PRN PRN Reason: LINE FLUSH Physical Examination - Physical exam Narrative exam: at both lower extremities which is noted to have bluish discoloration and temperature changes at the mid-talar region, blisters noted Eyes: PERRL ENT: Positive: clear oral mucosa Respiratory effort: normal Respiratory: bilateral: CTA Rhythm: regular Heart Sounds: Positive: S1 & S2 General gastrointestinal: Positive: soft, non-tender, non-distended, normal bowel sounds Integumentary: clear, warm, dry Neurologic: Positive: CNII-XII intact, moves all extremities, gait normal. Negative: focal deficits Assessment and Plan gangrenous forefoot bilateral recommend observation to evaluate demarcation prior to amputation, most likely bilateral transmetatarsal amputation
[2018-12-06] MEDS: XANAX PO PRN (20:47)
[2018-12-06] MEDS: ELAVIL PO SCH (21:03)
[2018-12-07] MEDS: LOPRESSOR PO SCH ×3 (05:23→23:06)
[2018-12-07] MEDS: NITRO-BID 2% TP SCH ×4 (05:24→17:12)
[2018-12-07] MEDS: HumaLOG SUB-Q SCH ×4 (08:00→23:09)
--- NOTE | 2018-12-07 08:04 | Progress Note ---
Assessment and Plan Assessment and plan: Ischemic lower > upper extremity. Vasc Surgery following, Dr. Hernandez On heparin drip There is concern for HIT - HITpanel negative F/U labs for vasculitis--CRP, sedimentation rate, anti-Ro, anti-la, anti-Maritza 1, AMA, ANCA, rheumatoid factor. Anti-ccp Hyperosmolar hyperglycemic state (HHS) in a newly diagnosed Diabetes-new onset -Patient was admitted to the ICU on insulin drip, now off Insulin drip -Continue serial BMP level monitoring -Cont. Novolin 70/30 Diabetes mellitus type 2-new onset Sepsis -CT abd/pelvis showed generalized bronchiectasis -Blood cultures no growth Vtach s/p shocked 8 tiemes by AICD, as per interrogation, notes in paper chart Cont. Amiodarone cardiology following, b-ernesto added RODNEY planned for Thursday morning Metabolic encephalopathy, resolved -Head CT scan negative -We'll monitor clinically Acute hypoxic respiratory failure. O2 and BiPAP as clinically indicated. CATRACHO Continue CPAP during sleep and when necessary. Interstitial lung disease. Continue per pulmonary. Systemic sclerosis Elevated troponin -Probably secondary to demand ischemia due to acute process -We'll continue serial troponin and EKG monitoring EDGARDO -Probably vasomotor nephropathy due to dehydration -On IV fluid, will monitor creatinine level -Nephrology following Abnormal LFT -Probably due to acute process -CT abd/pelvis negative for liver pathology -We'll monitor levels Hypertension -Stable -On when necessary hydralazine Cardiomyopathy with EF of 20-25% -Status post AICD placement -No acute exacerbation GERD -On famotidine DVT prophylaxis with heparin Partient has systemic sclerosis, sees a [employer] Was on Cellcept, but I did not resume because it may cause thrombosis Full code status History Interval history: Patient seen and examined medical records reviewed Slightly better no new complaints Vital signs noted Hospitalist Physical - Constitutional Vitals: Temp Pulse Resp BP Pulse Ox 98.8 F 71 24 115/80 97 12/07/18 02:57 12/07/18 07:00 12/07/18 07:00 12/07/18 07:00 12/07/18 07:00 General appearance: Present: no acute distress, well-nourished, obese - EENT Eyes: Present: PERRL, EOM intact - Neck Neck: Present: supple - Respiratory Respiratory effort: normal Respiratory: bilateral: diminished, negative: rales, rhonchi, wheezing - Cardiovascular Rhythm: regular Heart Sounds: Present: S1 & S2 - Extremities Extremities: abnormal (cyanotic bilateral feet) Extremity abnormal: other (cyanotic left middle finger) - Abdominal General gastrointestinal: soft, non-tender, non-distended, normal bowel sounds - Integumentary Integumentary: Present: clear, warm - Psychiatric Psychiatric: appropriate mood/affect, cooperative - Neurologic Neurologic: CNII-XII intact, moves all extremities Results - Labs CBC & Chem 7: 12/09/18 05:25 12/09/18 05:25 Labs: Laboratory Last Values WBC 16.7 K/mm3 (4.5-11.0) H 12/06/18 06:13 RBC 5.12 M/mm3 (3.65-5.03) H 12/06/18 06:13 Hgb 14.3 gm/dl (10.1-14.3) 12/06/18 06:13 Hct 43.6 % (30.3-42.9) H 12/06/18 06:13 MCV 85 fl (79-97) 12/06/18 06:13 MCH 28 pg (28-32) 12/06/18 06:13 MCHC 33 % (30-34) 12/06/18 06:13 RDW 19.2 % (13.2-15.2) H 12/06/18 06:13 Plt Count 218 K/mm3 (140-440) 12/06/18 06:13 Lymph % (Auto) 2.6 % (13.4-35.0) L 12/05/18 06:10 [place] % (Auto) 14.8 % (0.0-7.3) H 12/05/18 06:10 Eos % (Auto) 0.1 % (0.0-4.3) 12/05/18 06:10 Baso % (Auto) 0.3 % (0.0-1.8) 12/05/18 06:10 Lymph # 0.5 K/mm3 (1.2-5.4) L 12/05/18 06:10 [place] # 2.8 K/mm3 (0.0-0.8) H 12/05/18 06:10 Eos # 0.0 K/mm3 (0.0-0.4) 12/05/18 06:10 Baso # 0.1 K/mm3 (0.0-0.1) 12/05/18 06:10 Add Manual Diff Complete 12/06/18 06:13 Total Counted 100 12/06/18 06:13 Seg Neutrophils % 82.2 % (40.0-70.0) H 12/05/18 06:10 Seg Neuts % (Manual) 89.0 % (40.0-70.0) H 12/06/18 06:13 0 % 12/06/18 06:13 5.0 % (13.4-35.0) L 12/06/18 06:13 Reactive Lymphs % (Man) 0 % 12/06/18 06:13 6.0 % (0.0-7.3) 12/06/18 06:13 0 % (0.0-4.3) 12/06/18 06:13 0 % (0.0-1.8) 12/06/18 06:13 0 % 12/06/18 06:13 0 % 12/06/18 06:13 0 % 12/06/18 06:13 0 % 12/06/18 06:13 Nucleated RBC % Not Reportable 12/06/18 06:13 Seg Neutrophils # 15.5 K/mm3 (1.8-7.7) H 12/05/18 06:10 Seg Neutrophils # Man 14.9 K/mm3 (1.8-7.7) H 12/06/18 06:13 Band Neutrophils # 0.0 K/mm3 12/06/18 06:13 0.8 K/mm3 (1.2-5.4) L 12/06/18 06:13 Abs React Lymphs (Man) 0.0 K/mm3 12/06/18 06:13 1.0 K/mm3 (0.0-0.8) H 12/06/18 06:13 0.0 K/mm3 (0.0-0.4) 12/06/18 06:13 0.0 K/mm3 (0.0-0.1) 12/06/18 06:13 0.0 K/mm3 12/06/18 06:13 0.0 K/mm3 12/06/18 06:13 0.0 K/mm3 12/06/18 06:13 Blast Cells # 0.0 K/mm3 12/06/18 06:13 WBC Morphology Not Reportable 12/06/18 06:13 Hypersegmented Neuts Not Reportable 12/06/18 06:13 Hyposegmented Neuts Not Reportable 12/06/18 06:13 Hypogranular Neuts Not Reportable 12/06/18 06:13 Not Reportable 12/06/18 06:13 Not Reportable 12/06/18 06:13 Not Reportable 12/06/18 06:13 Not Reportable 12/06/18 06:13 Not Reportable 12/06/18 06:13 Not Reportable 12/06/18 06:13 Consistent w auto 12/06/18 06:13 Not Reportable 12/06/18 06:13 Plt Clumps, EDTA Not Reportable 12/06/18 06:13 Not Reportable 12/06/18 06:13 Not Reportable 12/06/18 06:13 Not Reportable 12/06/18 06:13 Plt Morphology Comment Not Reportable 12/06/18 06:13 RBC Morphology Not Reportable 12/06/18 06:13 Dimorphic RBCs Not Reportable 12/06/18 06:13 Not Reportable 12/06/18 06:13 1+ 12/06/18 06:13 Not Reportable 12/06/18 06:13 Not Reportable 12/06/18 06:13 Not Reportable 12/06/18 06:13 Not Reportable 12/06/18 06:13 Not Reportable 12/06/18 06:13 Not Reportable 12/06/18 06:13 Not Reportable 12/06/18 06:13 Few 12/06/18 06:13 Not Reportable 12/06/18 06:13 Few 12/06/18 06:13 Not Reportable 12/06/18 06:13 Not Reportable 12/06/18 06:13 Not Reportable 12/06/18 06:13 Not Reportable 12/06/18 06:13 Not Reportable 12/06/18 06:13 Not Reportable 12/06/18 06:13 Not Reportable 12/06/18 06:13 Acanthocytes (Spur) Not Reportable 12/06/18 06:13 Rouleaux Not Reportable 12/06/18 06:13 Not Reportable 12/06/18 06:13 Not Reportable 12/06/18 06:13 Not Reportable 12/06/18 06:13 ESR 1 mm/Hr (0-20) 12/03/18 14:33 Not Reportable 12/06/18 06:13 Hem Pathologist Commnt No 12/06/18 06:13 PT 15.6 Sec. (12.2-14.9) H 11/28/18 01:01 INR 1.27 (0.87-1.13) H 11/28/18 01:01 APTT 51.1 Sec. (24.2-36.6) H 12/06/18 16:24 Heparin Anti-Xa, Unfract Negative (Negative) 11/29/18 16:46 POC ABG pH 7.413 (7.35-7.45) 12/01/18 10:39 ABG pH 7.414 pH Units (7.350-7.450) 11/28/18 01:01 POC ABG pCO2 30.6 (35-45) L 12/01/18 10:39 ABG pCO2 48.8 mm Hg 11/28/18 01:01 POC ABG pO2 95 (80-105) 12/01/18 10:39 ABG pO2 65.7 mm Hg (80.0-90.0) L 11/28/18 01:01 POC ABG HCO3 19.5 (22-26 mml/L) 12/01/18 10:39 ABG HCO3 30.5 mmol/L (20.0-26.0) H 11/28/18 01:01 POC ABG Total CO2 20 (23-27mmol/L) 12/01/18 10:39 POC ABG O2 Sat 98 12/01/18 10:39 ABG O2 Saturation 91.3 % (95.0-99.0) L 11/28/18 01:01 ABG O2 Content 22.2 (0.0-44) 11/28/18 01:01 POC ABG Base Excess -5 ((-2) - (+3)mmol/L) 12/01/18 10:39 ABG Base Excess 4.6 mmol/L (-2.0-3.0) H 11/28/18 01:01 ABG Hemoglobin 18.0 gm/dl (12.0-16.0) H 11/28/18 01:01 ABG Carboxyhemoglobin 3.1 % (0.0-5.0) 11/28/18 01:01 ABG Methemoglobin 0.5 % (0.0-1.5) 11/28/18 01:01 VBG pH 7.414 (7.320-7.420) 11/28/18 01:01 88.0 % (95.0-99.0) L 11/28/18 01:01 28 % 12/01/18 10:39 Sodium 142 mmol/L (137-145) 12/06/18 06:13 Potassium 3.8 mmol/L (3.6-5.0) D 12/06/18 06:13 Chloride 110.9 mmol/L (98-107) H 12/06/18 06:13 Carbon Dioxide 24 mmol/L (22-30) 12/06/18 06:13 11 mmol/L 12/06/18 06:13 BUN 19 mg/dL (7-17) H 12/06/18 06:13 0.9 mg/dL (0.7-1.2) 12/06/18 06:13 Estimated GFR > 60 ml/min 12/06/18 06:13 21 % 12/06/18 06:13 Glucose 242 mg/dL (65-100) H 12/06/18 06:13 POC Glucose 438 (70-105) H 12/06/18 22:04 12.5 % (4-6) H 11/28/18 01:01 Lactic Acid 5.00 mmol/L (0.7-2.0) H* 11/28/18 15:14 Calcium 6.7 mg/dL (8.4-10.2) L D 12/06/18 06:13 Phosphorus 3.30 mg/dL (2.5-4.5) 11/30/18 07:18 Magnesium 3.20 mg/dL (1.7-2.3) H 11/30/18 07:18 2.00 mg/dL (0.1-1.2) H 12/02/18 04:45 1.3 mg/dL (0-0.2) H 11/28/18 01:01 1.1 mg/dL 11/28/18 01:01 AST 156 units/L (5-40) H 12/02/18 04:45 ALT 183 units/L (7-56) H 12/02/18 04:45 225 units/L (35-129) H 12/02/18 04:45 30.0 umol/L (25-60) 11/28/18 01:01 976 units/L (91-180) H 12/01/18 13:45 228 units/L (30-135) H 11/28/18 01:01 0.030 ng/mL (0.00-0.029) H D 11/28/18 07:50 7.70 mg/dL (0.00-1.30) H 12/03/18 14:33 5.9 g/dL (6.3-8.2) L D 12/02/18 04:45 2.6 g/dL (3.9-5) L 12/02/18 04:45 0.8 % 12/02/18 04:45 Triglycerides 356 mg/dL (2-149) H 11/28/18 01:01 Cholesterol 200 mg/dL (50-199) H 11/28/18 01:01 125 mg/dL (50-130) 11/28/18 01:01 39 mg/dL (40-59) L 11/28/18 01:01 5.12 % 11/28/18 01:01 TSH 0.288 mlU/mL (0.270-4.200) 11/28/18 01:01 HCG, Quant < 2 mIU/mL (0-4) 11/28/18 01:01 Straw (Yellow) 11/28/18 00:37 Clear (Clear) 11/28/18 00:37 7.0 (5.0-7.0) 11/28/18 00:37 Ur Specific [place] 1.023 (1.003-1.030) 11/28/18 00:37 30 mg/dl mg/dL (Negative) 11/28/18 00:37 >=500 mg/dL (Negative) 11/28/18 00:37 Tr mg/dL (Negative) 11/28/18 00:37 Sm (Negative) 11/28/18 00:37 Neg (Negative) 11/28/18 00:37 Neg (Negative) 11/28/18 00:37 < 2.0 mg/dL (<2.0) 11/28/18 00:37 Ur Leukocyte Esterase Neg (Negative) 11/28/18 00:37 < 1.0 /HPF (0.0-6.0) 11/28/18 00:37 1.0 /HPF (0.0-6.0) 11/28/18 00:37 None seen (None Seen) 11/29/18 13:40 117.4 mg/dL (0.1-20.0) H 11/29/18 13:40 53 mmol/L 11/29/18 13:40 120 mg/dL (5-11.8) H 11/29/18 13:40 Urine HCG, Qual Negative (Negative) 11/28/18 Unknown Salicylates < 0.3 mg/dL (2.8-20.0) L 11/28/18 01:01 Presumptive negative 11/28/18 00:37 Presumptive negative 11/28/18 00:37 Acetaminophen < 5.0 ug/mL (10.0-30.0) L 11/28/18 01:01 Ur Barbiturates Screen Presumptive negative 11/28/18 00:37 Ur Phencyclidine Scrn Presumptive negative 11/28/18 00:37 Ur Amphetamines Screen Presumptive negative 11/28/18 00:37 U Benzodiazepines Scrn Presumptive negative 11/28/18 00:37 Presumptive negative 11/28/18 00:37 U Marijuana (THC) Screen Presumptive negative 11/28/18 00:37 Disclamer 11/28/18 00:37 Plasma/Serum Alcohol < 0.01 % (0-0.07) 11/28/18 01:01 13 IU/ml (0-13) 12/03/18 14:33 Heparin-induced Plt Ab Negative (Negative) 11/29/18 16:46 UF Heparin High Dose 18 % Release 11/29/18 16:46 GALE UFH Low Dose 0.1 12 % Release 11/29/18 16:46 GALE UFH Low Dose 0.5 16 % Release 11/29/18 16:46 Blood Type B POSITIVE 11/28/18 01:01 Antibody Screen Negative 11/28/18 01:01 Active Medications - Current Medications Current Medications: Generic Name Dose Route Start Last Admin Trade Name Freq PRN Reason Stop Dose Admin Acetaminophen 650 mg 11/28/18 03:02 Tylenol PO Q4H PRN Pain MILD(1-3)/Fever >100.5/TURPIN Alprazolam 0.25 mg 11/30/18 01:09 12/06/18 20:47 Xanax PO 0.25 mg Q8H PRN Administration Anxiety Amiodarone HCl 200 mg 12/02/18 12:00 12/06/18 21:04 Cordarone PO 200 mg BID VIOLA Administration Amitriptyline HCl 25 mg 11/29/18 22:00 12/06/18 21:03 Elavil PO 25 mg HS VIOLA Administration Aspirin 81 mg 11/29/18 10:00 12/06/18 10:00 Baby Aspirin PO 81 mg QDAY VIOLA Administration Dextrose 0 ml 11/28/18 02:19 D50w (25gm) Syringe IV PRN PRN Hypoglycemia Fluticasone Propionate 50 mcg 11/29/18 10:00 12/06/18 21:05 Flonase NS 50 mcg BID VIOLA Administration Hydralazine HCl 10 mg 11/28/18 03:41 Apresoline IV Q6HR PRN Blood Pressure Hydrophilic Ointment 1 applic 11/30/18 11:55 Vaseline Lip Therapy TP DIRECT PRN DRY LIPS Argatroban 250 mg/ Sodium 250 mls @ 3.682 mls/hr 11/29/18 13:00 12/06/18 17:00 Chloride IV 0.5 mcg/kg/min TITR VIOLA 3.682 mls/hr Titration Protocol 0.5 MCG/KG/MIN Sodium Chloride 1,000 mls @ 125 mls/hr 12/02/18 13:00 12/03/18 11:24 Nacl 0.9% 1000 Ml IV 0 mls/hr DIRECT VIOLA Infusion Insulin Human Isoph/Insulin Regular 15 unit 12/02/18 17:00 12/06/18 17:00 Humulin 70/30 SUB-Q 15 unit BIDDIAB VIOLA Administration Insulin Human Lispro 0 unit 11/30/18 09:00 12/06/18 22:10 Humalog SUB-Q 8 unit ACHS VIOLA Administration Protocol Metoprolol Tartrate 25 mg 11/30/18 14:00 12/07/18 05:23 Lopressor PO 25 mg Q8HR VIOLA Administration Montelukast Sodium 10 mg 11/29/18 18:00 12/06/18 17:55 Singulair PO 10 mg QPM VIOAL Administration Morphine Sulfate 2 mg 11/28/18 03:02 12/06/18 00:22 Morphine IV 2 mg Q4H PRN Administration Pain, Moderate (4-6) Nitroglycerin 0.75 inch 11/29/18 14:00 12/07/18 05:24 Nitro-Bid 2% TP 0.75 inch QIDNTG VIOAL Administration Protocol Ondansetron HCl 4 mg 11/28/18 03:02 Zofran IV Q8H PRN Nausea And Vomiting Pantoprazole Sodium 40 mg 11/29/18 10:00 12/06/18 10:00 Protonix PO 40 mg QDAY VIOLA Administration Pentoxifylline 400 mg 11/29/18 13:00 12/06/18 21:03 Trental PO 400 mg Q12HR VIOLA Administration Prednisone 50 mg 11/29/18 10:00 12/06/18 10:00 Deltasone PO 50 mg QDAY VIOLA Administration Sodium Chloride 10 ml 11/28/18 10:00 12/06/18 21:04 Sodium Chloride Flush Syringe 10 Ml IV 10 ml BID VIOLA Administration Sodium Chloride 10 ml 11/28/18 03:02 Sodium Chloride Flush Syringe 10 Ml IV PRN PRN LINE FLUSH Nutrition/Malnutrition Assess - Dietary Evaluation Nutrition/Malnutrition Findings: Nutrition Notes Start: 11/29/18 14:34 Freq: Status: Active Protocol: Document 11/29/18 14:35 LM (Rec: 11/29/18 14:40 LM [id number]) Nutrition Notes Need for Assessment generated from: Education Initial or Follow up Brief Note Current Diagnosis Diabetes,Hypertension Subjective/Other Information Consult for DM education. #1 Nutrition Diagnosis Food and nutrition-related knowledge deficit Etiology No prior DM diet education As Evidenced by Signs and Symptoms Pt statement of needing DM diet education, HGB A1C of 12. 5, BG 203 Nutrition Intervention Teaching Recipient Patient Learning Readiness Good Teaching Methods Discussion,Handout Education Handouts Provided Carbohydrate Counting for People with Diabetes RD phone number provided Yes Patient aware of follow up options Yes Revisit per MD consult or patient Sign Off request:
[2018-12-07] MEDS: FLONASE NS SCH ×2 (09:07→23:07)
[2018-12-07] MEDS: DELTASONE PO SCH (09:08)
[2018-12-07] MEDS: CORDARONE PO SCH ×2 (09:08→23:07)
[2018-12-07] MEDS: BABY ASPIRIN PO SCH (09:08)
[2018-12-07] MEDS: TRENTAL PO SCH ×2 (09:09→23:07)
[2018-12-07] MEDS: ENTRESTO 49-51 MG PO SCH ×2 (09:09→23:06)
[2018-12-07] MEDS: PROTONIX PO SCH (09:09)
[2018-12-07] MEDS: SODIUM CHLORIDE FLUSH SYRINGE 10 ML IV SCH ×2 (09:11→23:08)
[2018-12-07 09:22] LABS: Hematocrit 46.9 % (30.3-42.9); Hemoglobin 15.7 gm/dl (10.1-14.3); Mean Corpuscular HGB Conc 33 % (30-34); Mean Corpuscular Volume 85 fl (79-97); Platelet Count 262 K/mm3 (140-440); Red Blood Count 5.56 M/mm3 (3.65-5.03); Red Cell Distribution Width 19.1 % (13.2-15.2)
[2018-12-07 09:46] LABS: BUN/Creatinine Ratio 22; Blood Urea Nitrogen 24 mg/dL (7-17); Calcium 9.3 mg/dL (8.4-10.2); Hemolysis Index 28
--- NOTE | 2018-12-07 09:58 | Progress Note ---
Assessment and Plan - Patient Problems (1) Acute kidney injury Current Visit: Yes Status: Acute Plan to address problem: Suspect Pre-renal azotemia vs Acute tubular necrosis secondary to hypotension. Kidney function improved significantly, Cr down to 0.9. Follow up electrolytes and renal function (2) Hypotension Current Visit: Yes Status: Acute Plan to address problem: Blood pressure has improved. Follow-up blood pressure (3) Hyperkalemia Current Visit: Yes Status: Acute Plan to address problem: Hyperkalemia on presentation improved with medical management. Follow-up electrolytes (4) Hypernatremia Current Visit: Yes Status: Acute Plan to address problem: Hypernatremia secondary to free water losses. now resolved (5) Acrocyanosis Current Visit: Yes Status: Acute Plan to address problem: Etiology uncertain. May be related to scleroderma. Arterial Duplex shows that Diffuse peripheral vascular disease in both lower extremities with occlusive disease of the left anterior tibial and dorsalis pedis arteries. Distal disease in the left hand. 1. RODNEY showed no Thrombus. 2. Vascular input appreciated: Possible severe vasospasm the setting of scleroderma superimposed on baseline peripheral vascular disease. HIT Ab negative (6) Hyperosmolar hyperglycemic coma due to diabetes mellitus without ketoacidosis Current Visit: Yes Status: Acute Plan to address problem: Steroid induced hyperglycemia/newly diagnosed type 2 diabetes mellitus. Blood sugar control by primary attending (7) Heart failure with reduced ejection fraction Current Visit: Yes Status: Acute Plan to address problem: Intravenous fluids stopped. Monitor volume status. (8) Transaminasemia Current Visit: Yes Status: Acute Plan to address problem: Probable ischemic hepatitis. Follow-up liver function tests Subjective Date of service: 12/07/18 Principal diagnosis: ischemic extremities Interval history: Pt awake alert, denies, fever, chills, n/v/d Objective - Vital Signs Vital signs: Vital Signs - 12hr 12/06/18 12/06/18 12/06/18 22:00 22:11 22:21 Temperature Pulse Rate 80 77 77 Pulse Rate [ From Monitor] Respiratory 35 H 45 H 27 H Rate Blood Pressure 115/74 115/74 115/74 O2 Sat by Pulse 100 99 99 Oximetry 12/06/18 12/06/18 12/06/18 22:31 22:40 22:41 Temperature Pulse Rate 77 75 74 Pulse Rate [ From Monitor] Respiratory 38 H 20 32 H Rate Blood Pressure 115/74 115/74 O2 Sat by Pulse 100 99 98 Oximetry 12/06/18 12/06/18 12/06/18 22:51 23:00 23:11 Temperature Pulse Rate 72 71 70 Pulse Rate [ From Monitor] Respiratory 29 H 36 H 35 H Rate Blood Pressure 115/74 115/68 115/68 O2 Sat by Pulse 99 98 99 Oximetry 12/06/18 12/06/18 12/06/18 23:21 23:31 23:39 Temperature 98.5 F Pulse Rate 70 70 Pulse Rate [ From Monitor] Respiratory 33 H 32 H Rate Blood Pressure 115/68 115/68 O2 Sat by Pulse 98 98 Oximetry 12/06/18 12/06/18 12/06/18 23:41 23:51 23:53 Temperature Pulse Rate 70 70 70 Pulse Rate [ From Monitor] Respiratory 33 H 29 H 31 H Rate Blood Pressure 115/68 115/68 115/68 O2 Sat by Pulse 98 97 99 Oximetry 12/07/18 12/07/18 12/07/18 00:00 00:11 00:21 Temperature Pulse Rate 70 70 77 Pulse Rate [ 70 From Monitor] Respiratory 24 29 H 17 Rate Blood Pressure 112/67 112/67 112/67 O2 Sat by Pulse 99 99 100 Oximetry 12/07/18 12/07/18 12/07/18 00:31 00:41 00:51 Temperature Pulse Rate 73 72 70 Pulse Rate [ From Monitor] Respiratory 36 H 36 H 30 H Rate Blood Pressure 112/67 112/67 112/67 O2 Sat by Pulse 100 99 Oximetry 12/07/18 12/07/18 12/07/18 01:00 01:11 01:21 Temperature Pulse Rate 70 70 70 Pulse Rate [ From Monitor] Respiratory 35 H 28 H 19 Rate Blood Pressure 115/72 112/67 112/67 O2 Sat by Pulse 99 100 100 Oximetry 12/07/18 12/07/18 12/07/18 01:31 01:41 01:51 Temperature Pulse Rate 70 70 70 Pulse Rate [ From Monitor] Respiratory 35 H 38 H 39 H Rate Blood Pressure 112/67 112/67 112/67 O2 Sat by Pulse 99 100 97 Oximetry 12/07/18 12/07/18 12/07/18 02:00 02:11 02:21 Temperature Pulse Rate 70 70 76 Pulse Rate [ From Monitor] Respiratory 35 H 29 H 26 H Rate Blood Pressure 113/68 113/68 113/68 O2 Sat by Pulse 96 96 97 Oximetry 12/07/18 12/07/18 12/07/18 02:31 02:41 02:51 Temperature Pulse Rate 70 70 70 Pulse Rate [ From Monitor] Respiratory 28 H 28 H 25 H Rate Blood Pressure 113/68 113/68 113/68 O2 Sat by Pulse 97 97 98 Oximetry 12/07/18 12/07/18 12/07/18 02:57 03:00 03:11 Temperature 98.8 F Pulse Rate 70 72 Pulse Rate [ From Monitor] Respiratory 29 H 27 H Rate Blood Pressure 119/85 119/85 O2 Sat by Pulse 99 Oximetry 12/07/18 12/07/18 12/07/18 03:21 03:31 03:41 Temperature Pulse Rate 70 70 70 Pulse Rate [ From Monitor] Respiratory 30 H 26 H 25 H Rate Blood Pressure 119/85 119/85 119/85 O2 Sat by Pulse 98 98 98 Oximetry 12/07/18 12/07/18 12/07/18 03:51 04:00 04:11 Temperature Pulse Rate 70 70 70 Pulse Rate [ 70 From Monitor] Respiratory 24 23 25 H Rate Blood Pressure 119/85 107/74 107/74 O2 Sat by Pulse 98 98 98 Oximetry 12/07/18 12/07/18 12/07/18 04:21 04:31 04:41 Temperature Pulse Rate 70 70 70 Pulse Rate [ From Monitor] Respiratory 26 H 29 H 29 H Rate Blood Pressure 107/74 107/74 107/74 O2 Sat by Pulse 99 99 99 Oximetry 12/07/18 12/07/18 12/07/18 04:51 05:00 05:11 Temperature Pulse Rate 70 71 70 Pulse Rate [ From Monitor] Respiratory 36 H 26 H 19 Rate Blood Pressure 107/74 111/76 111/76 O2 Sat by Pulse 98 97 98 Oximetry 12/07/18 12/07/18 12/07/18 05:21 05:23 05:31 Temperature Pulse Rate 70 70 70 Pulse Rate [ From Monitor] Respiratory 25 H 21 Rate Blood Pressure 111/76 111/76 O2 Sat by Pulse 99 98 Oximetry 12/07/18 12/07/18 12/07/18 05:41 05:51 06:00 Temperature Pulse Rate 70 70 70 Pulse Rate [ From Monitor] Respiratory 22 25 H 29 H Rate Blood Pressure 111/76 111/76 112/76 O2 Sat by Pulse 99 99 98 Oximetry 12/07/18 12/07/18 12/07/18 06:11 06:21 06:31 Temperature Pulse Rate 70 71 70 Pulse Rate [ From Monitor] Respiratory 35 H 26 H 23 Rate Blood Pressure 112/76 112/76 112/76 O2 Sat by Pulse 99 99 98 Oximetry 12/07/18 12/07/18 12/07/18 06:41 06:51 07:00 Temperature 97.7 F Pulse Rate 70 70 71 Pulse Rate [ From Monitor] Respiratory 24 23 24 Rate Blood Pressure 112/76 112/76 115/80 O2 Sat by Pulse 98 99 97 Oximetry 12/07/18 12/07/18 12/07/18 07:11 07:21 07:31 Temperature Pulse Rate 71 70 70 Pulse Rate [ From Monitor] Respiratory 23 23 26 H Rate Blood Pressure 115/80 115/80 115/80 O2 Sat by Pulse 98 99 98 Oximetry 12/07/18 12/07/18 12/07/18 07:41 07:51 08:00 Temperature Pulse Rate 71 70 72 Pulse Rate [ 70 From Monitor] Respiratory 30 H 26 H 26 H Rate Blood Pressure 115/80 115/80 125/87 O2 Sat by Pulse 98 98 97 Oximetry 12/07/18 12/07/18 12/07/18 08:11 08:21 08:31 Temperature Pulse Rate 70 71 70 Pulse Rate [ From Monitor] Respiratory 30 H 22 24 Rate Blood Pressure 125/87 125/87 125/87 O2 Sat by Pulse 97 98 96 Oximetry 12/07/18 12/07/18 12/07/18 08:41 08:51 09:00 Temperature Pulse Rate 78 77 76 Pulse Rate [ From Monitor] Respiratory 15 30 H 32 H Rate Blood Pressure 125/87 125/87 124/91 O2 Sat by Pulse 99 99 Oximetry 12/07/18 12/07/18 12/07/18 09:10 09:11 09:21 Temperature Pulse Rate 84 73 80 Pulse Rate [ From Monitor] Respiratory 37 H 15 Rate Blood Pressure 124/91 124/91 124/91 O2 Sat by Pulse 99 99 Oximetry 12/07/18 12/07/18 12/07/18 09:31 09:41 09:51 Temperature Pulse Rate 80 79 78 Pulse Rate [ From Monitor] Respiratory 25 H 20 18 Rate Blood Pressure 124/91 124/91 124/91 O2 Sat by Pulse 99 Oximetry - General Appearance General appearance: well-developed, appears stated age, obese EENT: ATNC, PERRL, mucous membranes moist Neck: no JVD Respiratory: Present: Clear to Ascultation Cardiology: regular, S1S2 Gastrointestinal: normoactive bowel sounds, obese Integumentary: no rash, other (trace edema ) Neurologic: no focal deficit, alert and oriented x3, strength 5/5, CN 3-12 intact Psychiatric: mood/affect appropriate, cooperative - Lab 12/07/18 09:00 12/07/18 09:00 Most recent lab results ABG pH 7.414 pH Units (7.350-7.450) 11/28/18 01:01 ABG pCO2 48.8 mm Hg 11/28/18 01:01 ABG pO2 65.7 mm Hg (80.0-90.0) L 11/28/18 01:01 ABG HCO3 30.5 mmol/L (20.0-26.0) H 11/28/18 01:01 ABG O2 Saturation 91.3 % (95.0-99.0) L 11/28/18 01:01 Calcium 9.3 mg/dL (8.4-10.2) D 12/07/18 09:00 Phosphorus 3.30 mg/dL (2.5-4.5) 11/30/18 07:18 Magnesium 3.20 mg/dL (1.7-2.3) H 11/30/18 07:18 117.4 mg/dL (0.1-20.0) H 11/29/18 13:40 53 mmol/L 11/29/18 13:40 120 mg/dL (5-11.8) H 11/29/18 13:40 Medications & Allergies - Medications Allergies/Adverse Reactions: Allergies lisinopril Adverse Reaction (Severe, Verified 12/17/13 19:00) SORE THROAT;PERSISTENT COUGH Home Medications: Home Medications Medication Instructions Recorded Confirmed Last Taken Type Aspirin [Aspirin BABY CHEW TAB] 81 mg PO QDAY 11/28/18 11/29/18 11/26/18 History Fluticasone [Flonase] 1 spray NS BID 11/28/18 11/28/18 Unknown History Furosemide [Lasix TAB] 40 mg PO BID 11/28/18 11/28/18 Unknown History Ibuprofen [Motrin] 600 mg PO Q6H PRN 11/28/18 11/28/18 Unknown History Montelukast [Singulair] 10 mg PO QPM 11/28/18 11/28/18 Unknown History Mycophenolate [Cellcept] 500 mg PO BID 11/28/18 11/28/18 Unknown History Mycophenolate [Cellcept] 500 mg PO BID PRN MDD 2 TABS 11/28/18 11/28/18 Unknown History Pantoprazole [Protonix] 40 mg PO QDAY 11/28/18 11/28/18 Unknown History Sacubitril/Valsartan [Entresto 1 each PO BID 11/28/18 11/28/18 Unknown History 49-51 mg] predniSONE [Deltasone] 50 mg PO QDAY 11/28/18 11/28/18 Unknown History raNITIdine HCl [Zantac] 150 mg PO BID 11/28/18 11/28/18 Unknown History Amitriptyline [Elavil] 25 mg PO HS 11/29/18 11/29/18 11/26/18 History Aspirin [Adult Aspirin] 81 mg PO ONCE 11/29/18 11/29/18 11/26/18 History Entresto 49-51 mg 49 mg PO BID 11/29/18 11/29/18 11/26/18 History HYDROcodone/APAP 5-325 5 mg PO Q6HR PRN 11/29/18 11/29/18 Unknown History Active Medications: Generic Name Dose Route Start Last Admin Trade Name Freq PRN Reason Stop Dose Admin Acetaminophen 650 mg 11/28/18 03:02 Tylenol PO Q4H PRN Pain MILD(1-3)/Fever >100.5/TURPIN Alprazolam 0.25 mg 11/30/18 01:09 12/06/18 20:47 Xanax PO 0.25 mg Q8H PRN Administration Anxiety Amiodarone HCl 200 mg 12/02/18 12:00 12/07/18 09:08 Cordarone PO 200 mg BID VIOLA Administration Amitriptyline HCl 25 mg 11/29/18 22:00 12/06/18 21:03 Elavil PO 25 mg HS VIOLA Administration Aspirin 81 mg 11/29/18 10:00 12/07/18 09:08 Baby Aspirin PO 81 mg QDAY VIOLA Administration Dextrose 0 ml 11/28/18 02:19 D50w (25gm) Syringe IV PRN PRN Hypoglycemia Fluticasone Propionate 50 mcg 11/29/18 10:00 12/07/18 09:07 Flonase NS 50 mcg BID VIOLA Administration Hydralazine HCl 10 mg 11/28/18 03:41 Apresoline IV Q6HR PRN Blood Pressure Hydrophilic Ointment 1 applic 11/30/18 11:55 Vaseline Lip Therapy TP DIRECT PRN DRY LIPS Argatroban 250 mg/ Sodium 250 mls @ 3.682 mls/hr 11/29/18 13:00 12/06/18 17:00 Chloride IV 0.5 mcg/kg/min TITR VIOLA 3.682 mls/hr Titration Protocol 0.5 MCG/KG/MIN Sodium Chloride 1,000 mls @ 125 mls/hr 12/02/18 13:00 12/03/18 11:24 Nacl 0.9% 1000 Ml IV 0 mls/hr DIRECT VIOLA Infusion Insulin Human Isoph/Insulin Regular 20 unit 12/07/18 08:30 12/07/18 09:49 Humulin 70/30 SUB-Q 20 unit BIDDIAB VIOLA Administration Insulin Human Lispro 0 unit 11/30/18 09:00 12/07/18 08:00 Humalog SUB-Q 6 unit ACHS VIOLA Administration Protocol Metoprolol Tartrate 25 mg 11/30/18 14:00 12/07/18 05:23 Lopressor PO 25 mg Q8HR VIOLA Administration Montelukast Sodium 10 mg 11/29/18 18:00 12/06/18 17:55 Singulair PO 10 mg QPM VIOLA Administration Morphine Sulfate 2 mg 11/28/18 03:02 12/06/18 00:22 Morphine IV 2 mg Q4H PRN Administration Pain, Moderate (4-6) Nitroglycerin 0.75 inch 11/29/18 14:00 12/07/18 09:10 Nitro-Bid 2% TP 0.75 inch QIDNTG VIOLA Administration Protocol Ondansetron HCl 4 mg 11/28/18 03:02 Zofran IV Q8H PRN Nausea And Vomiting Pantoprazole Sodium 40 mg 11/29/18 10:00 12/07/18 09:09 Protonix PO 40 mg QDAY VIOLA Administration Pentoxifylline 400 mg 11/29/18 13:00 12/07/18 09:09 Trental PO 400 mg Q12HR VIOLA Administration Prednisone 50 mg 11/29/18 10:00 12/07/18 09:08 Deltasone PO 50 mg QDAY VIOLA Administration Sodium Chloride 10 ml 11/28/18 10:00 12/07/18 09:11 Sodium Chloride Flush Syringe 10 Ml IV 10 ml BID VIOLA Administration Sodium Chloride 10 ml 11/28/18 03:02 Sodium Chloride Flush Syringe 10 Ml IV PRN PRN LINE FLUSH
--- NOTE | 2018-12-07 10:00 | Progress Note ---
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 1. Wean FiO2 as tolerated, now on room air and stable. 2. GALE is negative, so ok to change to heparin drip. 3. Rate control per cards. 4. Follow up any new heme recs. 5. CPAP QHS Will see as needed. Call with any questions. Subjective Date of service: 12/07/18 Principal diagnosis: ischemic extremities Interval history: Down to room air. GALE came back as negative. Reviewed ortho note from yesterday as well. Objective Vital Signs - 12hr 12/06/18 12/06/18 12/06/18 22:00 22:11 22:21 Temperature Pulse Rate 80 77 77 Pulse Rate [ From Monitor] Respiratory 35 H 45 H 27 H Rate Blood Pressure 115/74 115/74 115/74 O2 Sat by Pulse 100 99 99 Oximetry 12/06/18 12/06/18 12/06/18 22:31 22:40 22:41 Temperature Pulse Rate 77 75 74 Pulse Rate [ From Monitor] Respiratory 38 H 20 32 H Rate Blood Pressure 115/74 115/74 O2 Sat by Pulse 100 99 98 Oximetry 12/06/18 12/06/18 12/06/18 22:51 23:00 23:11 Temperature Pulse Rate 72 71 70 Pulse Rate [ From Monitor] Respiratory 29 H 36 H 35 H Rate Blood Pressure 115/74 115/68 115/68 O2 Sat by Pulse 99 98 99 Oximetry 12/06/18 12/06/18 12/06/18 23:21 23:31 23:39 Temperature 98.5 F Pulse Rate 70 70 Pulse Rate [ From Monitor] Respiratory 33 H 32 H Rate Blood Pressure 115/68 115/68 O2 Sat by Pulse 98 98 Oximetry 12/06/18 12/06/18 12/06/18 23:41 23:51 23:53 Temperature Pulse Rate 70 70 70 Pulse Rate [ From Monitor] Respiratory 33 H 29 H 31 H Rate Blood Pressure 115/68 115/68 115/68 O2 Sat by Pulse 98 97 99 Oximetry 12/07/18 12/07/18 12/07/18 00:00 00:11 00:21 Temperature Pulse Rate 70 70 77 Pulse Rate [ 70 From Monitor] Respiratory 24 29 H 17 Rate Blood Pressure 112/67 112/67 112/67 O2 Sat by Pulse 99 99 100 Oximetry 12/07/18 12/07/18 12/07/18 00:31 00:41 00:51 Temperature Pulse Rate 73 72 70 Pulse Rate [ From Monitor] Respiratory 36 H 36 H 30 H Rate Blood Pressure 112/67 112/67 112/67 O2 Sat by Pulse 100 99 Oximetry 12/07/18 12/07/18 12/07/18 01:00 01:11 01:21 Temperature Pulse Rate 70 70 70 Pulse Rate [ From Monitor] Respiratory 35 H 28 H 19 Rate Blood Pressure 115/72 112/67 112/67 O2 Sat by Pulse 99 100 100 Oximetry 12/07/18 12/07/18 12/07/18 01:31 01:41 01:51 Temperature Pulse Rate 70 70 70 Pulse Rate [ From Monitor] Respiratory 35 H 38 H 39 H Rate Blood Pressure 112/67 112/67 112/67 O2 Sat by Pulse 99 100 97 Oximetry 12/07/18 12/07/18 12/07/18 02:00 02:11 02:21 Temperature Pulse Rate 70 70 76 Pulse Rate [ From Monitor] Respiratory 35 H 29 H 26 H Rate Blood Pressure 113/68 113/68 113/68 O2 Sat by Pulse 96 96 97 Oximetry 12/07/18 12/07/18 12/07/18 02:31 02:41 02:51 Temperature Pulse Rate 70 70 70 Pulse Rate [ From Monitor] Respiratory 28 H 28 H 25 H Rate Blood Pressure 113/68 113/68 113/68 O2 Sat by Pulse 97 97 98 Oximetry 12/07/18 12/07/18 12/07/18 02:57 03:00 03:11 Temperature 98.8 F Pulse Rate 70 72 Pulse Rate [ From Monitor] Respiratory 29 H 27 H Rate Blood Pressure 119/85 119/85 O2 Sat by Pulse 99 Oximetry 12/07/18 12/07/18 12/07/18 03:21 03:31 03:41 Temperature Pulse Rate 70 70 70 Pulse Rate [ From Monitor] Respiratory 30 H 26 H 25 H Rate Blood Pressure 119/85 119/85 119/85 O2 Sat by Pulse 98 98 98 Oximetry 12/07/18 12/07/18 12/07/18 03:51 04:00 04:11 Temperature Pulse Rate 70 70 70 Pulse Rate [ 70 From Monitor] Respiratory 24 23 25 H Rate Blood Pressure 119/85 107/74 107/74 O2 Sat by Pulse 98 98 98 Oximetry 12/07/18 12/07/18 12/07/18 04:21 04:31 04:41 Temperature Pulse Rate 70 70 70 Pulse Rate [ From Monitor] Respiratory 26 H 29 H 29 H Rate Blood Pressure 107/74 107/74 107/74 O2 Sat by Pulse 99 99 99 Oximetry 12/07/18 12/07/18 12/07/18 04:51 05:00 05:11 Temperature Pulse Rate 70 71 70 Pulse Rate [ From Monitor] Respiratory 36 H 26 H 19 Rate Blood Pressure 107/74 111/76 111/76 O2 Sat by Pulse 98 97 98 Oximetry 12/07/18 12/07/18 12/07/18 05:21 05:23 05:31 Temperature Pulse Rate 70 70 70 Pulse Rate [ From Monitor] Respiratory 25 H 21 Rate Blood Pressure 111/76 111/76 O2 Sat by Pulse 99 98 Oximetry 12/07/18 12/07/18 12/07/18 05:41 05:51 06:00 Temperature Pulse Rate 70 70 70 Pulse Rate [ From Monitor] Respiratory 22 25 H 29 H Rate Blood Pressure 111/76 111/76 112/76 O2 Sat by Pulse 99 99 98 Oximetry 12/07/18 12/07/18 12/07/18 06:11 06:21 06:31 Temperature Pulse Rate 70 71 70 Pulse Rate [ From Monitor] Respiratory 35 H 26 H 23 Rate Blood Pressure 112/76 112/76 112/76 O2 Sat by Pulse 99 99 98 Oximetry 12/07/18 12/07/18 12/07/18 06:41 06:51 07:00 Temperature 97.7 F Pulse Rate 70 70 71 Pulse Rate [ From Monitor] Respiratory 24 23 24 Rate Blood Pressure 112/76 112/76 115/80 O2 Sat by Pulse 98 99 97 Oximetry 12/07/18 12/07/18 12/07/18 07:11 07:21 07:31 Temperature Pulse Rate 71 70 70 Pulse Rate [ From Monitor] Respiratory 23 23 26 H Rate Blood Pressure 115/80 115/80 115/80 O2 Sat by Pulse 98 99 98 Oximetry 12/07/18 12/07/18 12/07/18 07:41 07:51 08:00 Temperature Pulse Rate 71 70 72 Pulse Rate [ 70 From Monitor] Respiratory 30 H 26 H 26 H Rate Blood Pressure 115/80 115/80 125/87 O2 Sat by Pulse 98 98 97 Oximetry 12/07/18 12/07/18 12/07/18 08:11 08:21 08:31 Temperature Pulse Rate 70 71 70 Pulse Rate [ From Monitor] Respiratory 30 H 22 24 Rate Blood Pressure 125/87 125/87 125/87 O2 Sat by Pulse 97 98 96 Oximetry 12/07/18 12/07/18 12/07/18 08:41 08:51 09:00 Temperature Pulse Rate 78 77 76 Pulse Rate [ From Monitor] Respiratory 15 30 H 32 H Rate Blood Pressure 125/87 125/87 124/91 O2 Sat by Pulse 99 99 Oximetry 12/07/18 12/07/18 12/07/18 09:10 09:11 09:21 Temperature Pulse Rate 84 73 80 Pulse Rate [ From Monitor] Respiratory 37 H 15 Rate Blood Pressure 124/91 124/91 124/91 O2 Sat by Pulse 99 99 Oximetry 12/07/18 12/07/18 12/07/18 09:31 09:41 09:51 Temperature Pulse Rate 80 79 78 Pulse Rate [ From Monitor] Respiratory 25 H 20 18 Rate Blood Pressure 124/91 124/91 124/91 O2 Sat by Pulse 99 Oximetry Constitutional: no acute distress, alert Eyes: non-icteric ENT: oropharynx moist Neck: supple Effort: normal Ascultation: Bilateral: clear, diminished breath sounds Cardiovascular: regular rate and rhythm (no mrg) Gastrointestinal: normoactive bowel sounds, non-tender, non-distended, other (obese) Extremities: other (areas of ischemia, extremities) Neurologic: normal mental status, non-focal exam, pupils equal and round, CN II- XII normal Psychiatric: mood appropriate, affect normal CBC and BMP: 12/07/18 09:00 12/07/18 09:00 ABG, PT/INR, D-dimer: ABG POC ABG pH 7.413 (7.35-7.45) 12/01/18 10:39 ABG pH 7.414 pH Units (7.350-7.450) 11/28/18 01:01 POC ABG pCO2 30.6 (35-45) L 12/01/18 10:39 ABG pCO2 48.8 mm Hg 11/28/18 01:01 POC ABG pO2 95 (80-105) 12/01/18 10:39 ABG pO2 65.7 mm Hg (80.0-90.0) L 11/28/18 01:01 POC ABG HCO3 19.5 (22-26 mml/L) 12/01/18 10:39 POC ABG Total CO2 20 (23-27mmol/L) 12/01/18 10:39 POC ABG O2 Sat 98 12/01/18 10:39 ABG O2 Saturation 91.3 % (95.0-99.0) L 11/28/18 01:01 PT/INR, D-dimer PT 15.6 Sec. (12.2-14.9) H 11/28/18 01:01 INR 1.27 (0.87-1.13) H 11/28/18 01:01 Abnormal lab findings: Abnormal Labs 11/27/18 11/28/18 11/28/18 23:40 01:01 01:01 WBC 15.1 H RBC 6.19 H Hgb 17.4 H Hct 54.6 H RDW 19.6 H Lymph % (Auto) 6.3 L Park % (Auto) Lymph # 0.9 L Park # 0.9 H Seg Neutrophils % 87.2 H Seg Neuts % (Manual) Lymphocytes % (Manual) Nucleated RBC % Seg Neutrophils # 13.2 H Seg Neutrophils # Man Lymphocytes # (Manual) Monocytes # (Manual) PT 15.6 H INR 1.27 H APTT POC ABG pCO2 ABG pO2 ABG HCO3 ABG O2 Saturation ABG Base Excess ABG Hemoglobin Oxyhemoglobin Sodium Potassium Chloride Carbon Dioxide BUN Creatinine Glucose POC Glucose > 500 H Hemoglobin A1c Lactic Acid Calcium Phosphorus Magnesium Total Bilirubin Direct Bilirubin AST ALT Alkaline Phosphatase Lactate Dehydrogenase Total Creatine Kinase Troponin T C-Reactive Protein Total Protein Albumin Triglycerides Cholesterol HDL Cholesterol Urine Creatinine Urine Total Protein Salicylates Acetaminophen 11/28/18 11/28/18 11/28/18 01:01 01:01 01:01 WBC RBC Hgb Hct RDW Lymph % (Auto) Park % (Auto) Lymph # Park # Seg Neutrophils % Seg Neuts % (Manual) Lymphocytes % (Manual) Nucleated RBC % Seg Neutrophils # Seg Neutrophils # Man Lymphocytes # (Manual) Monocytes # (Manual) PT INR APTT POC ABG pCO2 ABG pO2 ABG HCO3 ABG O2 Saturation ABG Base Excess ABG Hemoglobin Oxyhemoglobin Sodium Potassium 5.9 H Chloride 92.9 L Carbon Dioxide BUN 20 H Creatinine 1.3 H Glucose 1088 H* POC Glucose Hemoglobin A1c Lactic Acid 3.50 H* Calcium Phosphorus Magnesium Total Bilirubin 2.40 H Direct Bilirubin 1.3 H AST ALT Alkaline Phosphatase 225 H Lactate Dehydrogenase Total Creatine Kinase Troponin T 0.030 H C-Reactive Protein Total Protein Albumin 3.8 L Triglycerides 356 H Cholesterol 200 H HDL Cholesterol 39 L Urine Creatinine Urine Total Protein Salicylates < 0.3 L Acetaminophen 11/28/18 11/28/18 11/28/18 01:01 01:01 01:01 WBC RBC Hgb Hct RDW Lymph % (Auto) Park % (Auto) Lymph # Park # Seg Neutrophils % Seg Neuts % (Manual) Lymphocytes % (Manual) Nucleated RBC % Seg Neutrophils # Seg Neutrophils # Man Lymphocytes # (Manual) Monocytes # (Manual) PT INR APTT POC ABG pCO2 ABG pO2 65.7 L ABG HCO3 30.5 H ABG O2 Saturation 91.3 L ABG Base Excess 4.6 H ABG Hemoglobin 18.0 H Oxyhemoglobin 88.0 L Sodium Potassium Chloride Carbon Dioxide BUN Creatinine Glucose POC Glucose Hemoglobin A1c Lactic Acid Calcium Phosphorus Magnesium 3.70 H Total Bilirubin Direct Bilirubin AST ALT Alkaline Phosphatase Lactate Dehydrogenase Total Creatine Kinase 228 H Troponin T C-Reactive Protein Total Protein Albumin Triglycerides Cholesterol HDL Cholesterol Urine Creatinine Urine Total Protein Salicylates Acetaminophen < 5.0 L 11/28/18 11/28/18 11/28/18 01:01 02:39 03:17 WBC RBC Hgb Hct RDW Lymph % (Auto) Park % (Auto) Lymph # Park # Seg Neutrophils % Seg Neuts % (Manual) Lymphocytes % (Manual) Nucleated RBC % Seg Neutrophils # Seg Neutrophils # Man Lymphocytes # (Manual) Monocytes # (Manual) PT INR APTT POC ABG pCO2 ABG pO2 ABG HCO3 ABG O2 Saturation ABG Base Excess ABG Hemoglobin Oxyhemoglobin Sodium Potassium Chloride Carbon Dioxide BUN Creatinine Glucose POC Glucose > 500 H Hemoglobin A1c 12.5 H Lactic Acid 3.00 H* Calcium Phosphorus Magnesium Total Bilirubin Direct Bilirubin AST ALT Alkaline Phosphatase Lactate Dehydrogenase Total Creatine Kinase Troponin T C-Reactive Protein Total Protein Albumin Triglycerides Cholesterol HDL Cholesterol Urine Creatinine Urine Total Protein Salicylates Acetaminophen 11/28/18 11/28/18 11/28/18 03:17 03:17 03:35 WBC RBC Hgb Hct RDW Lymph % (Auto) Park % (Auto) Lymph # Park # Seg Neutrophils % Seg Neuts % (Manual) Lymphocytes % (Manual) Nucleated RBC % Seg Neutrophils # Seg Neutrophils # Man Lymphocytes # (Manual) Monocytes # (Manual) PT INR APTT POC ABG pCO2 ABG pO2 ABG HCO3 ABG O2 Saturation ABG Base Excess ABG Hemoglobin Oxyhemoglobin Sodium Potassium 6.1 H* Chloride 97.6 L Carbon Dioxide BUN 20 H Creatinine Glucose 927 H* POC Glucose > 500 H Hemoglobin A1c Lactic Acid Calcium Phosphorus 4.70 H Magnesium 3.70 H Total Bilirubin Direct Bilirubin AST ALT Alkaline Phosphatase Lactate Dehydrogenase Total Creatine Kinase Troponin T C-Reactive Protein Total Protein Albumin Triglycerides Cholesterol HDL Cholesterol Urine Creatinine Urine Total Protein Salicylates Acetaminophen 11/28/18 11/28/18 11/28/18 04:43 05:35 06:30 WBC RBC Hgb Hct RDW Lymph % (Auto) Park % (Auto) Lymph # Park # Seg Neutrophils % Seg Neuts % (Manual) Lymphocytes % (Manual) Nucleated RBC % Seg Neutrophils # Seg Neutrophils # Man Lymphocytes # (Manual) Monocytes # (Manual) PT INR APTT POC ABG pCO2 ABG pO2 ABG HCO3 ABG O2 Saturation ABG Base Excess ABG Hemoglobin Oxyhemoglobin Sodium Potassium Chloride Carbon Dioxide BUN Creatinine Glucose POC Glucose > 500 H > 500 H > 500 H Hemoglobin A1c Lactic Acid Calcium Phosphorus Magnesium Total Bilirubin Direct Bilirubin AST ALT Alkaline Phosphatase Lactate Dehydrogenase Total Creatine Kinase Troponin T C-Reactive Protein Total Protein Albumin Triglycerides Cholesterol HDL Cholesterol Urine Creatinine Urine Total Protein Salicylates Acetaminophen 11/28/18 11/28/18 11/28/18 07:50 07:50 07:50 WBC RBC Hgb Hct RDW Lymph % (Auto) Park % (Auto) Lymph # Park # Seg Neutrophils % Seg Neuts % (Manual) Lymphocytes % (Manual) Nucleated RBC % Seg Neutrophils # Seg Neutrophils # Man Lymphocytes # (Manual) Monocytes # (Manual) PT INR APTT POC ABG pCO2 ABG pO2 ABG HCO3 ABG O2 Saturation ABG Base Excess ABG Hemoglobin Oxyhemoglobin Sodium 156 H D Potassium 3.3 L D Chloride 112.8 H Carbon Dioxide BUN Creatinine Glucose 409 H POC Glucose Hemoglobin A1c Lactic Acid 6.20 H* Calcium Phosphorus Magnesium Total Bilirubin Direct Bilirubin AST ALT Alkaline Phosphatase Lactate Dehydrogenase Total Creatine Kinase Troponin T 0.030 H D C-Reactive Protein Total Protein Albumin Triglycerides Cholesterol HDL Cholesterol Urine Creatinine Urine Total Protein Salicylates Acetaminophen 11/28/18 11/28/18 11/28/18 10:33 12:52 14:11 WBC RBC Hgb Hct RDW Lymph % (Auto) Park % (Auto) Lymph # Park # Seg Neutrophils % Seg Neuts % (Manual) Lymphocytes % (Manual) Nucleated RBC % Seg Neutrophils # Seg Neutrophils # Man Lymphocytes # (Manual) Monocytes # (Manual) PT INR APTT POC ABG pCO2 ABG pO2 ABG HCO3 ABG O2 Saturation ABG Base Excess ABG Hemoglobin Oxyhemoglobin Sodium Potassium Chloride Carbon Dioxide BUN Creatinine Glucose POC Glucose 411 H 204 H 119 H Hemoglobin A1c Lactic Acid Calcium Phosphorus Magnesium Total Bilirubin Direct Bilirubin AST ALT Alkaline Phosphatase Lactate Dehydrogenase Total Creatine Kinase Troponin T C-Reactive Protein Total Protein Albumin Triglycerides Cholesterol HDL Cholesterol Urine Creatinine Urine Total Protein Salicylates Acetaminophen 11/28/18 11/28/18 11/28/18 14:15 15:14 15:14 WBC RBC Hgb Hct RDW Lymph % (Auto) Park % (Auto) Lymph # Park # Seg Neutrophils % Seg Neuts % (Manual) Lymphocytes % (Manual) Nucleated RBC % Seg Neutrophils # Seg Neutrophils # Man Lymphocytes # (Manual) Monocytes # (Manual) PT INR APTT POC ABG pCO2 ABG pO2 ABG HCO3 ABG O2 Saturation ABG Base Excess ABG Hemoglobin Oxyhemoglobin Sodium 151 H Potassium Chloride 112.4 H Carbon Dioxide 21 L D BUN Creatinine Glucose 167 H POC Glucose Hemoglobin A1c Lactic Acid 4.80 H* 5.00 H* Calcium Phosphorus Magnesium Total Bilirubin Direct Bilirubin AST ALT Alkaline Phosphatase Lactate Dehydrogenase Total Creatine Kinase Troponin T C-Reactive Protein Total Protein Albumin Triglycerides Cholesterol HDL Cholesterol Urine Creatinine Urine Total Protein Salicylates Acetaminophen 11/28/18 11/28/18 11/28/18 15:22 16:22 17:11 WBC RBC Hgb Hct RDW Lymph % (Auto) Park % (Auto) Lymph # Park # Seg Neutrophils % Seg Neuts % (Manual) Lymphocytes % (Manual) Nucleated RBC % Seg Neutrophils # Seg Neutrophils # Man Lymphocytes # (Manual) Monocytes # (Manual) PT INR APTT POC ABG pCO2 ABG pO2 ABG HCO3 ABG O2 Saturation ABG Base Excess ABG Hemoglobin Oxyhemoglobin Sodium Potassium Chloride Carbon Dioxide BUN Creatinine Glucose POC Glucose 114 H 120 H 183 H Hemoglobin A1c Lactic Acid Calcium Phosphorus Magnesium Total Bilirubin Direct Bilirubin AST ALT Alkaline Phosphatase Lactate Dehydrogenase Total Creatine Kinase Troponin T C-Reactive Protein Total Protein Albumin Triglycerides Cholesterol HDL Cholesterol Urine Creatinine Urine Total Protein Salicylates Acetaminophen 11/28/18 11/28/18 11/28/18 17:17 18:18 19:26 WBC RBC Hgb Hct RDW Lymph % (Auto) Park % (Auto) Lymph # Park # Seg Neutrophils % Seg Neuts % (Manual) Lymphocytes % (Manual) Nucleated RBC % Seg Neutrophils # Seg Neutrophils # Man Lymphocytes # (Manual) Monocytes # (Manual) PT INR APTT POC ABG pCO2 ABG pO2 ABG HCO3 ABG O2 Saturation ABG Base Excess ABG Hemoglobin Oxyhemoglobin Sodium 151 H Potassium Chloride 112.9 H Carbon Dioxide 21 L BUN Creatinine Glucose 265 H POC Glucose 269 H 243 H Hemoglobin A1c Lactic Acid Calcium Phosphorus Magnesium Total Bilirubin Direct Bilirubin AST ALT Alkaline Phosphatase Lactate Dehydrogenase Total Creatine Kinase Troponin T C-Reactive Protein Total Protein Albumin Triglycerides Cholesterol HDL Cholesterol Urine Creatinine Urine Total Protein Salicylates Acetaminophen 11/28/18 11/28/18 11/29/18 20:45 21:44 05:55 WBC 29.7 H RBC 5.93 H Hgb 16.6 H Hct 51.0 H RDW 19.7 H Lymph % (Auto) Park % (Auto) Lymph # Park # Seg Neutrophils % Seg Neuts % (Manual) 93.0 H Lymphocytes % (Manual) 4.0 L Nucleated RBC % Seg Neutrophils # Seg Neutrophils # Man 27.6 H Lymphocytes # (Manual) Monocytes # (Manual) 0.9 H PT INR APTT POC ABG pCO2 ABG pO2 ABG HCO3 ABG O2 Saturation ABG Base Excess ABG Hemoglobin Oxyhemoglobin Sodium Potassium Chloride Carbon Dioxide BUN Creatinine Glucose POC Glucose 177 H 124 H Hemoglobin A1c Lactic Acid Calcium Phosphorus Magnesium Total Bilirubin Direct Bilirubin AST ALT Alkaline Phosphatase Lactate Dehydrogenase Total Creatine Kinase Troponin T C-Reactive Protein Total Protein Albumin Triglycerides Cholesterol HDL Cholesterol Urine Creatinine Urine Total Protein Salicylates Acetaminophen 11/29/18 11/29/18 11/29/18 06:42 07:36 09:08 WBC RBC Hgb Hct RDW Lymph % (Auto) Park % (Auto) Lymph # Park # Seg Neutrophils % Seg Neuts % (Manual) Lymphocytes % (Manual) Nucleated RBC % Seg Neutrophils # Seg Neutrophils # Man Lymphocytes # (Manual) Monocytes # (Manual) PT INR APTT POC ABG pCO2 ABG pO2 ABG HCO3 ABG O2 Saturation ABG Base Excess ABG Hemoglobin Oxyhemoglobin Sodium 152 H Potassium 5.4 H Chloride 110.6 H Carbon Dioxide 20 L BUN 20 H Creatinine 1.6 H Glucose 237 H POC Glucose 118 H 146 H Hemoglobin A1c Lactic Acid Calcium Phosphorus Magnesium Total Bilirubin 3.80 H Direct Bilirubin AST 351 H ALT 123 H Alkaline Phosphatase 222 H Lactate Dehydrogenase Total Creatine Kinase Troponin T C-Reactive Protein Total Protein Albumin 3.5 L Triglycerides Cholesterol HDL Cholesterol Urine Creatinine Urine Total Protein Salicylates Acetaminophen 11/29/18 11/29/18 11/29/18 11:00 11:44 13:40 WBC RBC Hgb Hct RDW Lymph % (Auto) Park % (Auto) Lymph # Park # Seg Neutrophils % Seg Neuts % (Manual) Lymphocytes % (Manual) Nucleated RBC % Seg Neutrophils # Seg Neutrophils # Man Lymphocytes # (Manual) Monocytes # (Manual) PT INR APTT POC ABG pCO2 ABG pO2 ABG HCO3 ABG O2 Saturation ABG Base Excess ABG Hemoglobin Oxyhemoglobin Sodium 155 H Potassium 5.8 H Chloride 110.1 H Carbon Dioxide 15 L BUN 21 H Creatinine 1.4 H Glucose 204 H POC Glucose 203 H Hemoglobin A1c Lactic Acid Calcium Phosphorus Magnesium Total Bilirubin 3.70 H Direct Bilirubin AST 361 H ALT 125 H Alkaline Phosphatase 227 H Lactate Dehydrogenase Total Creatine Kinase Troponin T C-Reactive Protein Total Protein Albumin 3.4 L Triglycerides Cholesterol HDL Cholesterol Urine Creatinine 117.4 H Urine Total Protein 120 H Salicylates Acetaminophen 11/29/18 11/29/18 11/29/18 16:29 16:46 16:46 WBC RBC Hgb Hct RDW Lymph % (Auto) Park % (Auto) Lymph # Park # Seg Neutrophils % Seg Neuts % (Manual) Lymphocytes % (Manual) Nucleated RBC % Seg Neutrophils # Seg Neutrophils # Man Lymphocytes # (Manual) Monocytes # (Manual) PT INR APTT 49.5 H POC ABG pCO2 ABG pO2 ABG HCO3 ABG O2 Saturation ABG Base Excess ABG Hemoglobin Oxyhemoglobin Sodium 148 H Potassium Chloride 108.3 H Carbon Dioxide 21 L BUN 22 H Creatinine 1.4 H Glucose 152 H POC Glucose 158 H Hemoglobin A1c Lactic Acid Calcium Phosphorus Magnesium Total Bilirubin Direct Bilirubin AST ALT Alkaline Phosphatase Lactate Dehydrogenase Total Creatine Kinase Troponin T C-Reactive Protein Total Protein Albumin Triglycerides Cholesterol HDL Cholesterol Urine Creatinine Urine Total Protein Salicylates Acetaminophen 11/29/18 11/29/18 11/30/18 22:02 23:58 05:51 WBC RBC Hgb Hct RDW Lymph % (Auto) Park % (Auto) Lymph # Park # Seg Neutrophils % Seg Neuts % (Manual) Lymphocytes % (Manual) Nucleated RBC % Seg Neutrophils # Seg Neutrophils # Man Lymphocytes # (Manual) Monocytes # (Manual) PT INR APTT 63.2 H* POC ABG pCO2 ABG pO2 ABG HCO3 ABG O2 Saturation ABG Base Excess ABG Hemoglobin Oxyhemoglobin Sodium Potassium Chloride Carbon Dioxide BUN Creatinine Glucose POC Glucose 183 H 156 H Hemoglobin A1c Lactic Acid Calcium Phosphorus Magnesium Total Bilirubin Direct Bilirubin AST ALT Alkaline Phosphatase Lactate Dehydrogenase Total Creatine Kinase Troponin T C-Reactive Protein Total Protein Albumin Triglycerides Cholesterol HDL Cholesterol Urine Creatinine Urine Total Protein Salicylates Acetaminophen 11/30/18 11/30/18 11/30/18 07:18 07:58 09:40 WBC 28.8 H RBC 6.58 H Hgb 18.2 H Hct 57.2 H* D RDW 19.3 H Lymph % (Auto) Park % (Auto) Lymph # Park # Seg Neutrophils % Seg Neuts % (Manual) Lymphocytes % (Manual) Nucleated RBC % Seg Neutrophils # Seg Neutrophils # Man Lymphocytes # (Manual) Monocytes # (Manual) PT INR APTT POC ABG pCO2 ABG pO2 ABG HCO3 ABG O2 Saturation ABG Base Excess ABG Hemoglobin Oxyhemoglobin Sodium 150 H Potassium Chloride 110.3 H Carbon Dioxide 20 L BUN Creatinine Glucose 149 H POC Glucose 190 H Hemoglobin A1c Lactic Acid Calcium Phosphorus Magnesium 3.20 H Total Bilirubin 3.70 H Direct Bilirubin AST 480 H ALT 213 H Alkaline Phosphatase 258 H Lactate Dehydrogenase Total Creatine Kinase Troponin T C-Reactive Protein Total Protein Albumin 3.4 L Triglycerides Cholesterol HDL Cholesterol Urine Creatinine Urine Total Protein Salicylates Acetaminophen 11/30/18 11/30/18 11/30/18 11:24 12:17 16:22 WBC RBC Hgb Hct RDW Lymph % (Auto) Park % (Auto) Lymph # Park # Seg Neutrophils % Seg Neuts % (Manual) Lymphocytes % (Manual) Nucleated RBC % Seg Neutrophils # Seg Neutrophils # Man Lymphocytes # (Manual) Monocytes # (Manual) PT INR APTT 62.1 H* POC ABG pCO2 ABG pO2 ABG HCO3 ABG O2 Saturation ABG Base Excess ABG Hemoglobin Oxyhemoglobin Sodium Potassium Chloride Carbon Dioxide BUN Creatinine Glucose POC Glucose 242 H 165 H Hemoglobin A1c Lactic Acid Calcium Phosphorus Magnesium Total Bilirubin Direct Bilirubin AST ALT Alkaline Phosphatase Lactate Dehydrogenase Total Creatine Kinase Troponin T C-Reactive Protein Total Protein Albumin Triglycerides Cholesterol HDL Cholesterol Urine Creatinine Urine Total Protein Salicylates Acetaminophen 11/30/18 12/01/18 12/01/18 21:32 05:32 05:32 WBC 24.7 H RBC 6.30 H Hgb 17.8 H Hct 54.2 H RDW 19.2 H Lymph % (Auto) Park % (Auto) Lymph # Park # Seg Neutrophils % Seg Neuts % (Manual) 87.0 H Lymphocytes % (Manual) 10.0 L Nucleated RBC % 2.0 H Seg Neutrophils # Seg Neutrophils # Man 21.5 H Lymphocytes # (Manual) Monocytes # (Manual) PT INR APTT 50.0 H POC ABG pCO2 ABG pO2 ABG HCO3 ABG O2 Saturation ABG Base Excess ABG Hemoglobin Oxyhemoglobin Sodium Potassium Chloride Carbon Dioxide BUN Creatinine Glucose POC Glucose 146 H Hemoglobin A1c Lactic Acid Calcium Phosphorus Magnesium Total Bilirubin Direct Bilirubin AST ALT Alkaline Phosphatase Lactate Dehydrogenase Total Creatine Kinase Troponin T C-Reactive Protein Total Protein Albumin Triglycerides Cholesterol HDL Cholesterol Urine Creatinine Urine Total Protein Salicylates Acetaminophen 12/01/18 12/01/18 12/01/18 07:45 10:39 11:35 WBC RBC Hgb Hct RDW Lymph % (Auto) Park % (Auto) Lymph # Park # Seg Neutrophils % Seg Neuts % (Manual) Lymphocytes % (Manual) Nucleated RBC % Seg Neutrophils # Seg Neutrophils # Man Lymphocytes # (Manual) Monocytes # (Manual) PT INR APTT POC ABG pCO2 30.6 L ABG pO2 ABG HCO3 ABG O2 Saturation ABG Base Excess ABG Hemoglobin Oxyhemoglobin Sodium Potassium Chloride Carbon Dioxide BUN Creatinine Glucose POC Glucose 179 H 219 H Hemoglobin A1c Lactic Acid Calcium Phosphorus Magnesium Total Bilirubin Direct Bilirubin AST ALT Alkaline Phosphatase Lactate Dehydrogenase Total Creatine Kinase Troponin T C-Reactive Protein Total Protein Albumin Triglycerides Cholesterol HDL Cholesterol Urine Creatinine Urine Total Protein Salicylates Acetaminophen 12/01/18 12/01/18 12/01/18 13:45 13:45 16:33 WBC RBC Hgb Hct RDW Lymph % (Auto) Park % (Auto) Lymph # Park # Seg Neutrophils % Seg Neuts % (Manual) Lymphocytes % (Manual) Nucleated RBC % Seg Neutrophils # Seg Neutrophils # Man Lymphocytes # (Manual) Monocytes # (Manual) PT INR APTT POC ABG pCO2 ABG pO2 ABG HCO3 ABG O2 Saturation ABG Base Excess ABG Hemoglobin Oxyhemoglobin Sodium 136 L D Potassium Chloride Carbon Dioxide BUN 29 H Creatinine 1.9 H D Glucose 360 H POC Glucose 166 H Hemoglobin A1c Lactic Acid Calcium 8.0 L Phosphorus Magnesium Total Bilirubin Direct Bilirubin AST ALT Alkaline Phosphatase Lactate Dehydrogenase 976 H Total Creatine Kinase Troponin T C-Reactive Protein Total Protein Albumin Triglycerides Cholesterol HDL Cholesterol Urine Creatinine Urine Total Protein Salicylates Acetaminophen 12/01/18 12/01/18 12/02/18 17:40 20:04 04:45 WBC RBC Hgb Hct RDW Lymph % (Auto) Park % (Auto) Lymph # Park # Seg Neutrophils % Seg Neuts % (Manual) Lymphocytes % (Manual) Nucleated RBC % Seg Neutrophils # Seg Neutrophils # Man Lymphocytes # (Manual) Monocytes # (Manual) PT INR APTT 68.9 H* POC ABG pCO2 ABG pO2 ABG HCO3 ABG O2 Saturation ABG Base Excess ABG Hemoglobin Oxyhemoglobin Sodium 135 L Potassium Chloride 96.8 L Carbon Dioxide BUN 33 H Creatinine 2.0 H Glucose 302 H POC Glucose 215 H Hemoglobin A1c Lactic Acid Calcium 8.0 L Phosphorus Magnesium Total Bilirubin 2.00 H Direct Bilirubin AST 156 H ALT 183 H Alkaline Phosphatase 225 H Lactate Dehydrogenase Total Creatine Kinase Troponin T C-Reactive Protein Total Protein 5.9 L D Albumin 2.6 L Triglycerides Cholesterol HDL Cholesterol Urine Creatinine Urine Total Protein Salicylates Acetaminophen 12/02/18 12/02/18 12/02/18 04:45 05:45 07:00 WBC 23.8 H RBC 6.28 H Hgb 17.5 H Hct 53.9 H RDW 19.3 H Lymph % (Auto) Park % (Auto) Lymph # Park # Seg Neutrophils % Seg Neuts % (Manual) 83.0 H Lymphocytes % (Manual) 12.0 L Nucleated RBC % Seg Neutrophils # Seg Neutrophils # Man 19.8 H Lymphocytes # (Manual) Monocytes # (Manual) 1.2 H PT INR APTT 51.5 H POC ABG pCO2 ABG pO2 ABG HCO3 ABG O2 Saturation ABG Base Excess ABG Hemoglobin Oxyhemoglobin Sodium Potassium Chloride Carbon Dioxide BUN Creatinine Glucose POC Glucose 336 H Hemoglobin A1c Lactic Acid Calcium Phosphorus Magnesium Total Bilirubin Direct Bilirubin AST ALT Alkaline Phosphatase Lactate Dehydrogenase Total Creatine Kinase Troponin T C-Reactive Protein Total Protein Albumin Triglycerides Cholesterol HDL Cholesterol Urine Creatinine Urine Total Protein Salicylates Acetaminophen 12/02/18 12/02/18 12/02/18 07:30 11:07 16:24 WBC RBC Hgb Hct RDW Lymph % (Auto) Park % (Auto) Lymph # Park # Seg Neutrophils % Seg Neuts % (Manual) Lymphocytes % (Manual) Nucleated RBC % Seg Neutrophils # Seg Neutrophils # Man Lymphocytes # (Manual) Monocytes # (Manual) PT INR APTT POC ABG pCO2 ABG pO2 ABG HCO3 ABG O2 Saturation ABG Base Excess ABG Hemoglobin Oxyhemoglobin Sodium Potassium Chloride Carbon Dioxide BUN Creatinine Glucose POC Glucose 143 H 249 H 250 H Hemoglobin A1c Lactic Acid Calcium Phosphorus Magnesium Total Bilirubin Direct Bilirubin AST ALT Alkaline Phosphatase Lactate Dehydrogenase Total Creatine Kinase Troponin T C-Reactive Protein Total Protein Albumin Triglycerides Cholesterol HDL Cholesterol Urine Creatinine Urine Total Protein Salicylates Acetaminophen 12/02/18 12/02/18 12/03/18 19:20 21:44 04:15 WBC 20.8 H RBC 5.79 H Hgb 16.2 H Hct 49.1 H RDW 19.2 H Lymph % (Auto) Park % (Auto) Lymph # Park # Seg Neutrophils % Seg Neuts % (Manual) 90.0 H Lymphocytes % (Manual) 4.0 L Nucleated RBC % 6.0 H Seg Neutrophils # Seg Neutrophils # Man 18.7 H Lymphocytes # (Manual) 0.8 L Monocytes # (Manual) 1.2 H PT INR APTT 43.4 H POC ABG pCO2 ABG pO2 ABG HCO3 ABG O2 Saturation ABG Base Excess ABG Hemoglobin Oxyhemoglobin Sodium Potassium Chloride Carbon Dioxide BUN Creatinine Glucose POC Glucose 315 H Hemoglobin A1c Lactic Acid Calcium Phosphorus Magnesium Total Bilirubin Direct Bilirubin AST ALT Alkaline Phosphatase Lactate Dehydrogenase Total Creatine Kinase Troponin T C-Reactive Protein Total Protein Albumin Triglycerides Cholesterol HDL Cholesterol Urine Creatinine Urine Total Protein Salicylates Acetaminophen 12/03/18 12/03/18 12/03/18 04:15 07:35 07:48 WBC RBC Hgb Hct RDW Lymph % (Auto) Park % (Auto) Lymph # Park # Seg Neutrophils % Seg Neuts % (Manual) Lymphocytes % (Manual) Nucleated RBC % Seg Neutrophils # Seg Neutrophils # Man Lymphocytes # (Manual) Monocytes # (Manual) PT INR APTT 53.6 H POC ABG pCO2 ABG pO2 ABG HCO3 ABG O2 Saturation ABG Base Excess ABG Hemoglobin Oxyhemoglobin Sodium Potassium Chloride Carbon Dioxide BUN 35 H Creatinine 1.9 H Glucose 231 H POC Glucose 179 H Hemoglobin A1c Lactic Acid Calcium 8.1 L Phosphorus Magnesium Total Bilirubin Direct Bilirubin AST ALT Alkaline Phosphatase Lactate Dehydrogenase Total Creatine Kinase Troponin T C-Reactive Protein Total Protein Albumin Triglycerides Cholesterol HDL Cholesterol Urine Creatinine Urine Total Protein Salicylates Acetaminophen 12/03/18 12/03/18 12/03/18 08:01 11:23 14:33 WBC RBC Hgb Hct RDW Lymph % (Auto) Park % (Auto) Lymph # Park # Seg Neutrophils % Seg Neuts % (Manual) Lymphocytes % (Manual) Nucleated RBC % Seg Neutrophils # Seg Neutrophils # Man Lymphocytes # (Manual) Monocytes # (Manual) PT INR APTT POC ABG pCO2 ABG pO2 ABG HCO3 ABG O2 Saturation ABG Base Excess ABG Hemoglobin Oxyhemoglobin Sodium Potassium Chloride Carbon Dioxide BUN Creatinine Glucose POC Glucose 204 H 153 H Hemoglobin A1c Lactic Acid Calcium Phosphorus Magnesium Total Bilirubin Direct Bilirubin AST ALT Alkaline Phosphatase Lactate Dehydrogenase Total Creatine Kinase Troponin T C-Reactive Protein 7.70 H Total Protein Albumin Triglycerides Cholesterol HDL Cholesterol Urine Creatinine Urine Total Protein Salicylates Acetaminophen 12/03/18 12/04/18 12/04/18 16:23 05:21 06:00 WBC 18.1 H RBC 5.73 H Hgb 16.0 H Hct 49.0 H RDW 19.5 H Lymph % (Auto) 1.3 L Park % (Auto) 10.5 H Lymph # 0.2 L Park # 1.9 H Seg Neutrophils % 87.9 H Seg Neuts % (Manual) Lymphocytes % (Manual) Nucleated RBC % Seg Neutrophils # 15.9 H Seg Neutrophils # Man Lymphocytes # (Manual) Monocytes # (Manual) PT INR APTT POC ABG pCO2 ABG pO2 ABG HCO3 ABG O2 Saturation ABG Base Excess ABG Hemoglobin Oxyhemoglobin Sodium Potassium Chloride Carbon Dioxide BUN Creatinine Glucose POC Glucose 180 H 297 H Hemoglobin A1c Lactic Acid Calcium Phosphorus Magnesium Total Bilirubin Direct Bilirubin AST ALT Alkaline Phosphatase Lactate Dehydrogenase Total Creatine Kinase Troponin T C-Reactive Protein Total Protein Albumin Triglycerides Cholesterol HDL Cholesterol Urine Creatinine Urine Total Protein Salicylates Acetaminophen 12/04/18 12/04/18 12/04/18 06:00 06:00 07:57 WBC RBC Hgb Hct RDW Lymph % (Auto) Park % (Auto) Lymph # Park # Seg Neutrophils % Seg Neuts % (Manual) Lymphocytes % (Manual) Nucleated RBC % Seg Neutrophils # Seg Neutrophils # Man Lymphocytes # (Manual) Monocytes # (Manual) PT INR APTT 51.3 H POC ABG pCO2 ABG pO2 ABG HCO3 ABG O2 Saturation ABG Base Excess ABG Hemoglobin Oxyhemoglobin Sodium Potassium Chloride Carbon Dioxide BUN 22 H Creatinine 1.5 H Glucose 352 H POC Glucose 315 H Hemoglobin A1c Lactic Acid Calcium Phosphorus Magnesium Total Bilirubin Direct Bilirubin AST ALT Alkaline Phosphatase Lactate Dehydrogenase Total Creatine Kinase Troponin T C-Reactive Protein Total Protein Albumin Triglycerides Cholesterol HDL Cholesterol Urine Creatinine Urine Total Protein Salicylates Acetaminophen 12/04/18 12/04/18 12/04/18 11:56 16:06 21:46 WBC RBC Hgb Hct RDW Lymph % (Auto) Park % (Auto) Lymph # Park # Seg Neutrophils % Seg Neuts % (Manual) Lymphocytes % (Manual) Nucleated RBC % Seg Neutrophils # Seg Neutrophils # Man Lymphocytes # (Manual) Monocytes # (Manual) PT INR APTT POC ABG pCO2 ABG pO2 ABG HCO3 ABG O2 Saturation ABG Base Excess ABG Hemoglobin Oxyhemoglobin Sodium Potassium Chloride Carbon Dioxide BUN Creatinine Glucose POC Glucose 303 H 347 H 345 H Hemoglobin A1c Lactic Acid Calcium Phosphorus Magnesium Total Bilirubin Direct Bilirubin AST ALT Alkaline Phosphatase Lactate Dehydrogenase Total Creatine Kinase Troponin T C-Reactive Protein Total Protein Albumin Triglycerides Cholesterol HDL Cholesterol Urine Creatinine Urine Total Protein Salicylates Acetaminophen 12/05/18 12/05/18 12/05/18 06:10 06:51 07:54 WBC 18.8 H RBC 5.42 H Hgb 15.5 H Hct 46.1 H RDW 19.1 H Lymph % (Auto) 2.6 L Park % (Auto) 14.8 H Lymph # 0.5 L Park # 2.8 H Seg Neutrophils % 82.2 H Seg Neuts % (Manual) Lymphocytes % (Manual) Nucleated RBC % Seg Neutrophils # 15.5 H Seg Neutrophils # Man Lymphocytes # (Manual) Monocytes # (Manual) PT INR APTT 52.9 H POC ABG pCO2 ABG pO2 ABG HCO3 ABG O2 Saturation ABG Base Excess ABG Hemoglobin Oxyhemoglobin Sodium Potassium Chloride Carbon Dioxide BUN Creatinine Glucose POC Glucose 258 H Hemoglobin A1c Lactic Acid Calcium Phosphorus Magnesium Total Bilirubin Direct Bilirubin AST ALT Alkaline Phosphatase Lactate Dehydrogenase Total Creatine Kinase Troponin T C-Reactive Protein Total Protein Albumin Triglycerides Cholesterol HDL Cholesterol Urine Creatinine Urine Total Protein Salicylates Acetaminophen 12/05/18 12/05/18 12/05/18 11:26 16:17 22:12 WBC RBC Hgb Hct RDW Lymph % (Auto) Park % (Auto) Lymph # Park # Seg Neutrophils % Seg Neuts % (Manual) Lymphocytes % (Manual) Nucleated RBC % Seg Neutrophils # Seg Neutrophils # Man Lymphocytes # (Manual) Monocytes # (Manual) PT INR APTT POC ABG pCO2 ABG pO2 ABG HCO3 ABG O2 Saturation ABG Base Excess ABG Hemoglobin Oxyhemoglobin Sodium Potassium Chloride Carbon Dioxide BUN Creatinine Glucose POC Glucose 246 H 310 H 386 H Hemoglobin A1c Lactic Acid Calcium Phosphorus Magnesium Total Bilirubin Direct Bilirubin AST ALT Alkaline Phosphatase Lactate Dehydrogenase Total Creatine Kinase Troponin T C-Reactive Protein Total Protein Albumin Triglycerides Cholesterol HDL Cholesterol Urine Creatinine Urine Total Protein Salicylates Acetaminophen 12/05/18 12/06/18 12/06/18 Unknown 06:13 06:13 WBC 16.7 H RBC 5.12 H Hgb Hct 43.6 H RDW 19.2 H Lymph % (Auto) Park % (Auto) Lymph # Park # Seg Neutrophils % Seg Neuts % (Manual) 89.0 H Lymphocytes % (Manual) 5.0 L Nucleated RBC % Seg Neutrophils # Seg Neutrophils # Man 14.9 H Lymphocytes # (Manual) 0.8 L Monocytes # (Manual) 1.0 H PT INR APTT POC ABG pCO2 ABG pO2 ABG HCO3 ABG O2 Saturation ABG Base Excess ABG Hemoglobin Oxyhemoglobin Sodium Potassium Chloride 110.9 H Carbon Dioxide BUN 18 H 19 H Creatinine Glucose 261 H 242 H POC Glucose Hemoglobin A1c Lactic Acid Calcium 6.7 L D Phosphorus Magnesium Total Bilirubin Direct Bilirubin AST ALT Alkaline Phosphatase Lactate Dehydrogenase Total Creatine Kinase Troponin T C-Reactive Protein Total Protein Albumin Triglycerides Cholesterol HDL Cholesterol Urine Creatinine Urine Total Protein Salicylates Acetaminophen 12/06/18 12/06/18 12/06/18 09:45 11:59 16:24 WBC RBC Hgb Hct RDW Lymph % (Auto) Park % (Auto) Lymph # Park # Seg Neutrophils % Seg Neuts % (Manual) Lymphocytes % (Manual) Nucleated RBC % Seg Neutrophils # Seg Neutrophils # Man Lymphocytes # (Manual) Monocytes # (Manual) PT INR APTT 51.1 H POC ABG pCO2 ABG pO2 ABG HCO3 ABG O2 Saturation ABG Base Excess ABG Hemoglobin Oxyhemoglobin Sodium Potassium Chloride Carbon Dioxide BUN Creatinine Glucose POC Glucose 277 H 264 H Hemoglobin A1c Lactic Acid Calcium Phosphorus Magnesium Total Bilirubin Direct Bilirubin AST ALT Alkaline Phosphatase Lactate Dehydrogenase Total Creatine Kinase Troponin T C-Reactive Protein Total Protein Albumin Triglycerides Cholesterol HDL Cholesterol Urine Creatinine Urine Total Protein Salicylates Acetaminophen 12/06/18 12/06/18 12/07/18 17:09 22:04 07:40 WBC RBC Hgb Hct RDW Lymph % (Auto) Park % (Auto) Lymph # Park # Seg Neutrophils % Seg Neuts % (Manual) Lymphocytes % (Manual) Nucleated RBC % Seg Neutrophils # Seg Neutrophils # Man Lymphocytes # (Manual) Monocytes # (Manual) PT INR APTT POC ABG pCO2 ABG pO2 ABG HCO3 ABG O2 Saturation ABG Base Excess ABG Hemoglobin Oxyhemoglobin Sodium Potassium Chloride Carbon Dioxide BUN Creatinine Glucose POC Glucose 276 H 438 H 319 H Hemoglobin A1c Lactic Acid Calcium Phosphorus Magnesium Total Bilirubin Direct Bilirubin AST ALT Alkaline Phosphatase Lactate Dehydrogenase Total Creatine Kinase Troponin T C-Reactive Protein Total Protein Albumin Triglycerides Cholesterol HDL Cholesterol Urine Creatinine Urine Total Protein Salicylates Acetaminophen 12/07/18 12/07/18 09:00 09:00 WBC 17.6 H RBC 5.56 H Hgb 15.7 H Hct 46.9 H RDW 19.1 H Lymph % (Auto) Park % (Auto) Lymph # Park # Seg Neutrophils % Seg Neuts % (Manual) Lymphocytes % (Manual) Nucleated RBC % Seg Neutrophils # Seg Neutrophils # Man Lymphocytes # (Manual) Monocytes # (Manual) PT INR APTT POC ABG pCO2 ABG pO2 ABG HCO3 ABG O2 Saturation ABG Base Excess ABG Hemoglobin Oxyhemoglobin Sodium 136 L Potassium 5.1 H D Chloride Carbon Dioxide BUN 24 H Creatinine Glucose 351 H POC Glucose Hemoglobin A1c Lactic Acid Calcium Phosphorus Magnesium Total Bilirubin Direct Bilirubin AST ALT Alkaline Phosphatase Lactate Dehydrogenase Total Creatine Kinase Troponin T C-Reactive Protein Total Protein Albumin Triglycerides Cholesterol HDL Cholesterol Urine Creatinine Urine Total Protein Salicylates Acetaminophen
[2018-12-07 10:48] LABS: Basophils % (Manual) 0 % (0.0-1.8); Eosinophils % (Manual) 0 % (0.0-4.3); Total Cells Counted 100
[2018-12-07 11:26] LABS: Anisocytosis 1+; Platelet Estimate Consistent w Auto
[2018-12-07] MEDS: HEPARIN/ 0.45% NACL-25,000 UNIT/500 ML 25,000 UNIT/500 ML BAG IV SCH (12:24)
--- NOTE | 2018-12-07 12:45 | Progress Note ---
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 Decreased left ventricular systolic function 20-25%. RODNEY reports a small mobile echogenic density noted on the PM wire on the RA side - this is likely a small thrombus given negative blood cultures. This is on the right side of the heart and therefore has nothing to do with her upper extremity process. Typically we recommend systemic anticoagulation for 3 months then re- imaging to document resolution of the small clot. Plan: Continue amiodarone and beta blockers for suppression of arrhythmias. Subjective Date of service: 12/07/18 Principal diagnosis: ischemic extremities Interval history: Patient has no complaints. Stable sinus rhythm on telemetry. Objective Vital Signs Temp Pulse Pulse Resp BP Pulse Ox 12/07/18 12:00 79 75 38 H 118/81 96 12/07/18 11:51 77 26 H 115/82 98 12/07/18 11:41 77 29 H 115/82 99 12/07/18 11:31 76 28 H 115/82 99 12/07/18 11:21 80 26 H 115/82 99 12/07/18 11:11 77 15 115/82 99 12/07/18 11:00 97.4 F L 77 14 115/82 98 12/07/18 10:51 77 10 L 127/88 100 12/07/18 10:41 80 24 127/88 100 12/07/18 10:31 76 30 H 127/88 98 12/07/18 10:21 77 34 H 127/88 98 12/07/18 10:11 76 19 127/88 99 12/07/18 10:00 76 15 127/88 98 12/07/18 09:51 78 18 124/91 99 12/07/18 09:41 79 20 124/91 12/07/18 09:31 80 25 H 124/91 12/07/18 09:21 80 15 124/91 99 12/07/18 09:11 73 37 H 124/91 99 12/07/18 09:10 84 124/91 12/07/18 09:00 76 32 H 124/91 12/07/18 08:51 77 30 H 125/87 99 12/07/18 08:41 78 15 125/87 99 12/07/18 08:31 70 24 125/87 96 12/07/18 08:21 71 22 125/87 98 12/07/18 08:11 70 30 H 125/87 97 12/07/18 08:00 72 70 26 H 125/87 97 12/07/18 07:51 70 26 H 115/80 98 12/07/18 07:41 71 30 H 115/80 98 12/07/18 07:31 70 26 H 115/80 98 12/07/18 07:21 70 23 115/80 99 12/07/18 07:11 71 23 115/80 98 12/07/18 07:00 97.7 F 71 24 115/80 97 12/07/18 06:51 70 23 112/76 99 12/07/18 06:41 70 24 112/76 98 12/07/18 06:31 70 23 112/76 98 12/07/18 06:21 71 26 H 112/76 99 12/07/18 06:11 70 35 H 112/76 99 12/07/18 06:00 70 29 H 112/76 98 12/07/18 05:51 70 25 H 111/76 99 12/07/18 05:41 70 22 111/76 99 12/07/18 05:31 70 21 111/76 98 12/07/18 05:23 70 12/07/18 05:21 70 25 H 111/76 99 12/07/18 05:11 70 19 111/76 98 12/07/18 05:00 71 26 H 111/76 97 12/07/18 04:51 70 36 H 107/74 98 12/07/18 04:41 70 29 H 107/74 99 12/07/18 04:31 70 29 H 107/74 99 12/07/18 04:21 70 26 H 107/74 99 12/07/18 04:11 70 25 H 107/74 98 12/07/18 04:00 70 70 23 107/74 98 12/07/18 03:51 70 24 119/85 98 12/07/18 03:41 70 25 H 119/85 98 12/07/18 03:31 70 26 H 119/85 98 12/07/18 03:21 70 30 H 119/85 98 12/07/18 03:11 72 27 H 119/85 99 12/07/18 03:00 70 29 H 119/85 12/07/18 02:57 98.8 F 12/07/18 02:51 70 25 H 113/68 98 12/07/18 02:41 70 28 H 113/68 97 12/07/18 02:31 70 28 H 113/68 97 12/07/18 02:21 76 26 H 113/68 97 12/07/18 02:11 70 29 H 113/68 96 12/07/18 02:00 70 35 H 113/68 96 12/07/18 01:51 70 39 H 112/67 97 12/07/18 01:41 70 38 H 112/67 100 12/07/18 01:31 70 35 H 112/67 99 12/07/18 01:21 70 19 112/67 100 12/07/18 01:11 70 28 H 112/67 100 12/07/18 01:00 70 35 H 115/72 99 12/07/18 00:51 70 30 H 112/67 99 12/07/18 00:41 72 36 H 112/67 12/07/18 00:31 73 36 H 112/67 100 12/07/18 00:21 77 17 112/67 100 12/07/18 00:11 70 29 H 112/67 99 12/07/18 00:00 70 70 24 112/67 99 12/06/18 23:53 70 31 H 115/68 99 12/06/18 23:51 70 29 H 115/68 97 12/06/18 23:41 70 33 H 115/68 98 12/06/18 23:39 98.5 F 12/06/18 23:31 70 32 H 115/68 98 12/06/18 23:21 70 33 H 115/68 98 12/06/18 23:11 70 35 H 115/68 99 12/06/18 23:00 71 36 H 115/68 98 12/06/18 22:51 72 29 H 115/74 99 12/06/18 22:41 74 32 H 115/74 98 12/06/18 22:40 75 20 99 12/06/18 22:31 77 38 H 115/74 100 12/06/18 22:21 77 27 H 115/74 99 12/06/18 22:11 77 45 H 115/74 99 12/06/18 22:00 80 35 H 115/74 100 12/06/18 21:51 81 21 105/69 100 12/06/18 21:41 81 40 H 105/69 12/06/18 21:31 85 26 H 105/69 100 12/06/18 21:21 83 24 105/69 12/06/18 21:11 81 43 H 105/69 100 12/06/18 21:00 81 44 H 105/69 100 12/06/18 20:51 82 21 99/59 100 12/06/18 20:41 83 37 H 99/59 12/06/18 20:31 81 17 99/59 98 12/06/18 20:21 80 51 H 99/59 100 12/06/18 20:11 81 47 H 99/59 99 12/06/18 20:00 98.3 F 80 60 14 99/59 99 12/06/18 19:51 80 26 H 112/73 90 12/06/18 19:41 80 20 112/73 100 12/06/18 19:31 81 13 112/73 99 12/06/18 19:21 78 49 H 112/73 100 12/06/18 19:11 78 45 H 112/73 100 12/06/18 19:00 77 47 H 112/73 12/06/18 18:51 77 21 114/83 12/06/18 18:41 76 18 114/83 12/06/18 18:31 76 15 114/83 12/06/18 18:21 79 19 114/83 12/06/18 18:11 78 39 H 114/83 100 12/06/18 18:00 77 24 114/83 100 12/06/18 17:55 77 115/63 12/06/18 17:51 78 33 H 115/63 99 12/06/18 17:41 77 26 H 115/63 100 12/06/18 17:31 82 12 115/63 77 L 12/06/18 17:21 85 14 115/63 100 12/06/18 17:11 75 12 115/63 100 12/06/18 17:00 72 36 H 115/63 100 12/06/18 16:51 72 32 H 111/66 99 12/06/18 16:41 71 36 H 111/66 99 12/06/18 16:31 72 31 H 111/66 99 12/06/18 16:21 71 32 H 111/66 100 12/06/18 16:11 73 33 H 111/66 100 12/06/18 16:00 74 75 37 H 111/66 99 12/06/18 15:51 74 35 H 110/60 99 12/06/18 15:41 73 31 H 110/60 99 12/06/18 15:31 74 33 H 110/60 100 12/06/18 15:21 73 17 110/60 12/06/18 15:11 72 37 H 110/60 99 12/06/18 15:00 72 39 H 110/60 99 12/06/18 14:51 73 45 H 104/71 98 12/06/18 14:41 73 46 H 104/71 100 12/06/18 14:31 72 45 H 104/71 100 12/06/18 14:21 73 39 H 104/71 99 12/06/18 14:11 72 45 H 104/71 99 12/06/18 14:00 72 33 H 104/71 100 12/06/18 13:51 72 25 H 97/79 100 12/06/18 13:41 75 34 H 97/79 100 12/06/18 13:31 80 32 H 97/79 100 12/06/18 13:21 84 19 97/79 99 12/06/18 13:11 86 11 L 97/79 100 12/06/18 13:01 85 14 97/79 100 12/06/18 13:00 76 12/06/18 12:51 79 40 H 107/72 100 - Physical Examination General: No Apparent Distress HEENT: Positive: PERRL Neck: Positive: trachea midline Cardiac: Positive: Reg Rate and Rhythm Lungs: Positive: Decreased Breath Sounds Abdomen: Positive: Soft Extremities: Present: Other - Labs and Meds Coagulation 12/06/18 12/07/18 Range/Units 16:24 09:00 APTT 51.1 H 41.6 H (24.2-36.6) Sec. CBC 08/27/19 Range/Units 09:00 WBC 17.6 H (4.5-11.0) K/mm3 RBC 5.56 H (3.65-5.03) M/mm3 Hgb 15.7 H (10.1-14.3) gm/dl Hct 46.9 H (30.3-42.9) % Plt Count 262 (140-440) K/mm3 Comprehensive Metabolic Panel 12/07/18 Range/Units 09:00 Sodium 136 L (137-145) mmol/L Potassium 5.1 H D (3.6-5.0) mmol/L Chloride 98.4 (98-107) mmol/L Carbon Dioxide 27 (22-30) mmol/L BUN 24 H (7-17) mg/dL Creatinine 1.1 (0.7-1.2) mg/dL Glucose 351 H (65-100) mg/dL Calcium 9.3 D (8.4-10.2) mg/dL
--- NOTE | 2018-12-07 13:08 | Hem/Onc Progress Note ---
Assessment and Plan Peripheral extremities both lower and left upper extremity thromboembolic disease. This may be related to her generalized disease etiology versus rheumatology issue versus embolic phenomena. There was a question if this is HIT. However, the platelet count is not low. HIT test Negative 1. Elevated bilirubin. 2. Electrolyte imbalance. 3. Arterial thrombus, on anticoagulation. 4. Diabetic ketoacidosis. 5. Hypertension. 6. Ischemic cardiomyopathy with low ejection fraction. 7. h/o Respiratory failure. 8. Sepsis, elevated troponin /CPK. I will follow the patient during inpatient stay and then in the clinic setting. The cause of thromboembolism is not clear. White cell count is high. There is a question if this has any relation. echo done RODNEY Done HIT negative high hct likely sec to sleep apnea dark toes - with arterial thrombus HIT neg - on IV heparin there is a question if her signs and symptoms are sec to rheumatology issues - Patient Problems (1) Ischemia Current Visit: Yes Status: Acute Subjective Date of service: 12/07/18 Principal diagnosis: ischemic extremitites Interval history: on iv heparin Objective - Exam Narrative Exam: Pain - hand and leg General appearance pain Performance status limited self care Eyes - no icterus ENT - no bleeding LNs cervical not palpable Neck - no LN Respiratory Normal Breath sounds - CTA CVS S1 S2 + Extremities cold toes and dark left hand finger General GI Soft Rectal deferred female - deferred Skin warm Musculoskeletal moving extremitites - dark foot and left hand finger Neurologically awake - Constitutional Vitals: Last Vital Signs Temp 97.4 F L 12/07/18 11:00 Pulse 75 12/07/18 12:00 Resp 18 12/07/18 12:00 BP 118/81 12/07/18 12:00 Pulse Ox 99 12/07/18 12:00 - Labs Lab Results: Laboratory Results - last 24 hr 12/06/18 12/06/18 12/06/18 11:59 16:24 17:09 WBC RBC Hgb Hct MCV MCH MCHC RDW Plt Count Add Manual Diff Total Counted Seg Neuts % (Manual) Band Neutrophils % Lymphocytes % (Manual) Reactive Lymphs % (Man) Monocytes % (Manual) Eosinophils % (Manual) Basophils % (Manual) Metamyelocytes % Myelocytes % Promyelocytes % Blast Cells % Nucleated RBC % Seg Neutrophils # Man Band Neutrophils # Lymphocytes # (Manual) Abs React Lymphs (Man) Monocytes # (Manual) Eosinophils # (Manual) Basophils # (Manual) Metamyelocytes # Myelocytes # Promyelocytes # Blast Cells # WBC Morphology Hypersegmented Neuts Hyposegmented Neuts Hypogranular Neuts Smudge Cells Toxic Granulation Toxic Vacuolation Dohle Bodies Pelger-Huet Anomaly Rosalva Rods Platelet Estimate Clumped Platelets Plt Clumps, EDTA Large Platelets Giant Platelets Platelet Satelliting Plt Morphology Comment RBC Morphology Dimorphic RBCs Polychromasia Hypochromasia Poikilocytosis Anisocytosis Microcytosis Macrocytosis Spherocytes Pappenheimer Bodies Sickle Cells Target Cells Tear Drop Cells Ovalocytes Helmet Cells Garza-[place] Bodies [place] Rings [place] Cells Bite Cells Crenated Cell Elliptocytes Acanthocytes (Spur) Rouleaux Hemoglobin C Crystals Schistocytes Malaria parasites Dominic Bodies Hem Pathologist Commnt APTT 51.1 H Sodium Potassium Chloride Carbon Dioxide Anion Gap BUN Creatinine Estimated GFR BUN/Creatinine Ratio Glucose POC Glucose 264 H 276 H Calcium 12/06/18 12/07/18 12/07/18 22:04 07:40 09:00 WBC 17.6 H RBC 5.56 H Hgb 15.7 H Hct 46.9 H MCV 85 MCH 28 MCHC 33 RDW 19.1 H Plt Count 262 Add Manual Diff Complete Total Counted 100 Seg Neuts % (Manual) 89.0 H Band Neutrophils % 0 Lymphocytes % (Manual) 4.0 L Reactive Lymphs % (Man) 0 Monocytes % (Manual) 6.0 Eosinophils % (Manual) 0 Basophils % (Manual) 0 Metamyelocytes % 1.0 Myelocytes % 0 Promyelocytes % 0 Blast Cells % 0 Nucleated RBC % Not Reportable Seg Neutrophils # Man 15.7 H Band Neutrophils # 0.0 Lymphocytes # (Manual) 0.7 L Abs React Lymphs (Man) 0.0 Monocytes # (Manual) 1.1 H Eosinophils # (Manual) 0.0 Basophils # (Manual) 0.0 Metamyelocytes # 0.2 Myelocytes # 0.0 Promyelocytes # 0.0 Blast Cells # 0.0 WBC Morphology Not Reportable Hypersegmented Neuts Not Reportable Hyposegmented Neuts Not Reportable Hypogranular Neuts Not Reportable Smudge Cells Not Reportable Toxic Granulation Not Reportable Toxic Vacuolation Not Reportable Dohle Bodies Not Reportable Pelger-Huet Anomaly Not Reportable Rosalva Rods Not Reportable Platelet Estimate Consistent w auto Clumped Platelets Not Reportable Plt Clumps, EDTA Not Reportable Large Platelets Not Reportable Giant Platelets Not Reportable Platelet Satelliting Not Reportable Plt Morphology Comment Not Reportable RBC Morphology Not Reportable Dimorphic RBCs Not Reportable Polychromasia Few Hypochromasia Not Reportable Poikilocytosis Not Reportable Anisocytosis 1+ Microcytosis Not Reportable Macrocytosis Not Reportable Spherocytes Not Reportable Pappenheimer Bodies Not Reportable Sickle Cells Not Reportable Target Cells Not Reportable Tear Drop Cells Not Reportable Ovalocytes Not Reportable Helmet Cells Not Reportable Garza-[place] Bodies Not Reportable [place] Rings Not Reportable [place] Cells Not Reportable Bite Cells Not Reportable Crenated Cell Not Reportable Elliptocytes Not Reportable Acanthocytes (Spur) Not Reportable Rouleaux Not Reportable Hemoglobin C Crystals Not Reportable Schistocytes Not Reportable Malaria parasites Not Reportable Dominic Bodies Not Reportable Hem Pathologist Commnt No APTT Sodium Potassium Chloride Carbon Dioxide Anion Gap BUN Creatinine Estimated GFR BUN/Creatinine Ratio Glucose POC Glucose 438 H 319 H Calcium 12/07/18 12/07/18 09:00 09:00 WBC RBC Hgb Hct MCV MCH MCHC RDW Plt Count Add Manual Diff Total Counted Seg Neuts % (Manual) Band Neutrophils % Lymphocytes % (Manual) Reactive Lymphs % (Man) Monocytes % (Manual) Eosinophils % (Manual) Basophils % (Manual) Metamyelocytes % Myelocytes % Promyelocytes % Blast Cells % Nucleated RBC % Seg Neutrophils # Man Band Neutrophils # Lymphocytes # (Manual) Abs React Lymphs (Man) Monocytes # (Manual) Eosinophils # (Manual) Basophils # (Manual) Metamyelocytes # Myelocytes # Promyelocytes # Blast Cells # WBC Morphology Hypersegmented Neuts Hyposegmented Neuts Hypogranular Neuts Smudge Cells Toxic Granulation Toxic Vacuolation Dohle Bodies Pelger-Huet Anomaly Rosalva Rods Platelet Estimate Clumped Platelets Plt Clumps, EDTA Large Platelets Giant Platelets Platelet Satelliting Plt Morphology Comment RBC Morphology Dimorphic RBCs Polychromasia Hypochromasia Poikilocytosis Anisocytosis Microcytosis Macrocytosis Spherocytes Pappenheimer Bodies Sickle Cells Target Cells Tear Drop Cells Ovalocytes Helmet Cells Garza-[place] Bodies [place] Rings Claudio Cells Bite Cells Crenated Cell Elliptocytes Acanthocytes (Spur) Rouleaux Hemoglobin C Crystals Schistocytes Malaria parasites Dominic Bodies Hem Pathologist Commnt APTT 41.6 H Sodium 136 L Potassium 5.1 H D Chloride 98.4 Carbon Dioxide 27 Anion Gap 16 BUN 24 H Creatinine 1.1 Estimated GFR > 60 BUN/Creatinine Ratio 22 Glucose 351 H POC Glucose Calcium 9.3 D Medications & Allergies - Medications Allergies/Adverse Reactions: Allergies lisinopril Adverse Reaction (Severe, Verified 12/17/13 19:00) SORE THROAT;PERSISTENT COUGH Home Medications: Home Medications Medication Instructions Recorded Confirmed Last Taken Type Aspirin [Aspirin BABY CHEW TAB] 81 mg PO QDAY 11/28/18 11/29/18 11/26/18 History Fluticasone [Flonase] 1 spray NS BID 11/28/18 11/28/18 Unknown History Furosemide [Lasix TAB] 40 mg PO BID 11/28/18 11/28/18 Unknown History Ibuprofen [Motrin] 600 mg PO Q6H PRN 11/28/18 11/28/18 Unknown History Montelukast [Singulair] 10 mg PO QPM 11/28/18 11/28/18 Unknown History Mycophenolate [Cellcept] 500 mg PO BID 11/28/18 11/28/18 Unknown History Mycophenolate [Cellcept] 500 mg PO BID PRN MDD 2 TABS 11/28/18 11/28/18 Unknown History Pantoprazole [Protonix] 40 mg PO QDAY 11/28/18 11/28/18 Unknown History Sacubitril/Valsartan [Entresto 1 each PO BID 11/28/18 11/28/18 Unknown History 49-51 mg] predniSONE [Deltasone] 50 mg PO QDAY 11/28/18 11/28/18 Unknown History raNITIdine HCl [Zantac] 150 mg PO BID 11/28/18 11/28/18 Unknown History Amitriptyline [Elavil] 25 mg PO HS 11/29/18 11/29/18 11/26/18 History Aspirin [Adult Aspirin] 81 mg PO ONCE 11/29/18 11/29/18 11/26/18 History Entresto 49-51 mg 49 mg PO BID 11/29/18 11/29/18 11/26/18 History HYDROcodone/APAP 5-325 5 mg PO Q6HR PRN 11/29/18 11/29/18 Unknown History Active Medications: Generic Name Dose Route Start Last Admin Trade Name Freq PRN Reason Stop Dose Admin Acetaminophen 650 mg 11/28/18 03:02 Tylenol PO Q4H PRN Pain MILD(1-3)/Fever >100.5/TURPIN Alprazolam 0.25 mg 11/30/18 01:09 12/06/18 20:47 Xanax PO 0.25 mg Q8H PRN Administration Anxiety Amiodarone HCl 200 mg 12/02/18 12:00 12/07/18 09:08 Cordarone PO 200 mg BID VIOLA Administration Amitriptyline HCl 25 mg 11/29/18 22:00 12/06/18 21:03 Elavil PO 25 mg HS VIOLA Administration Aspirin 81 mg 11/29/18 10:00 12/07/18 09:08 Baby Aspirin PO 81 mg QDAY VIOLA Administration Dextrose 0 ml 11/28/18 02:19 D50w (25gm) Syringe IV PRN PRN Hypoglycemia Fluticasone Propionate 50 mcg 11/29/18 10:00 12/07/18 09:07 Flonase NS 50 mcg BID VIOLA Administration Hydralazine HCl 10 mg 11/28/18 03:41 Apresoline IV Q6HR PRN Blood Pressure Hydrophilic Ointment 1 applic 11/30/18 11:55 Vaseline Lip Therapy TP DIRECT PRN DRY LIPS Sodium Chloride 1,000 mls @ 125 mls/hr 12/02/18 13:00 12/03/18 11:24 Nacl 0.9% 1000 Ml IV 0 mls/hr DIRECT VIOLA Infusion Heparin Sodium/Sodium Chloride 25,000 unit in 500 mls @ 27 mls/hr 12/07/18 12:00 12/07/18 12:24 Heparin/ 0.45% Nacl-25,000 Unit/500 Ml IV 1,350 units/hr TITR VIOLA 27 mls/hr Administration Protocol 1,350 UNITS/HR Insulin Human Isoph/Insulin Regular 20 unit 12/07/18 08:30 12/07/18 09:49 Humulin 70/30 SUB-Q 20 unit BIDDIAB VIOLA Administration Insulin Human Lispro 0 unit 11/30/18 09:00 12/07/18 11:23 Humalog SUB-Q 6 unit ACHS VIOLA Administration Protocol Metoprolol Tartrate 25 mg 11/30/18 14:00 12/07/18 05:23 Lopressor PO 25 mg Q8HR VIOLA Administration Montelukast Sodium 10 mg 11/29/18 18:00 12/06/18 17:55 Singulair PO 10 mg QPM VIOLA Administration Morphine Sulfate 2 mg 11/28/18 03:02 12/06/18 00:22 Morphine IV 2 mg Q4H PRN Administration Pain, Moderate (4-6) Nitroglycerin 0.75 inch 11/29/18 14:00 12/07/18 09:10 Nitro-Bid 2% TP 0.75 inch QIDNTG VIOLA Administration Protocol Ondansetron HCl 4 mg 11/28/18 03:02 Zofran IV Q8H PRN Nausea And Vomiting Pantoprazole Sodium 40 mg 11/29/18 10:00 12/07/18 09:09 Protonix PO 40 mg QDAY VIOLA Administration Pentoxifylline 400 mg 11/29/18 13:00 12/07/18 09:09 Trental PO 400 mg Q12HR VIOLA Administration Prednisone 50 mg 11/29/18 10:00 12/07/18 09:08 Deltasone PO 50 mg QDAY VIOLA Administration Sodium Chloride 10 ml 11/28/18 10:00 12/07/18 09:11 Sodium Chloride Flush Syringe 10 Ml IV 10 ml BID VIOLA Administration Sodium Chloride 10 ml 11/28/18 03:02 Sodium Chloride Flush Syringe 10 Ml IV PRN PRN LINE FLUSH
[2018-12-07] MEDS: SINGULAIR PO SCH (17:12)
[2018-12-07] MEDS: ELAVIL PO SCH (23:06)
[2018-12-07] MEDS: MORPHINE IV PRN (23:08)
[2018-12-08] MEDS: LOPRESSOR PO SCH ×3 (05:19→22:29)
[2018-12-08] MEDS: NITRO-BID 2% TP SCH ×4 (05:20→17:16)
[2018-12-08 06:32] LABS: BUN/Creatinine Ratio 19; Blood Urea Nitrogen 21 mg/dL (7-17); Hemolysis Index 15
[2018-12-08] MEDS: HEPARIN/ 0.45% NACL-25,000 UNIT/500 ML 25,000 UNIT/500 ML BAG IV SCH (07:21)
--- NOTE | 2018-12-08 08:15 | Hem/Onc Progress Note ---
Assessment and Plan Peripheral extremities both lower and left upper extremity thromboembolic disease. This may be related to her generalized disease etiology versus rheumatology issue versus embolic phenomena. There was a question if this is HIT. However, the platelet count is not low. HIT test Negative 1. Elevated bilirubin. 2. Electrolyte imbalance. 3. Arterial thrombus, on anticoagulation. 4. Diabetic ketoacidosis. 5. Hypertension. 6. Ischemic cardiomyopathy with low ejection fraction. 7. h/o Respiratory failure. 8. Sepsis, elevated troponin /CPK. I will follow the patient during inpatient stay and then in the clinic setting. The cause of thromboembolism is not clear. White cell count is high. There is a question if this has any relation. echo done RODNEY Done HIT negative high hct likely sec to sleep apnea dark toes - with arterial thrombus HIT neg - on IV heparin there is a question if her signs and symptoms are sec to rheumatology issues iv heparin - there is a plan for sx - Patient Problems (1) Ischemia Current Visit: Yes Status: Acute Subjective Date of service: 12/08/18 Principal diagnosis: thrombus Interval history: dark toes Objective - Exam Narrative Exam: Pain - hand and leg General appearance pain Performance status limited self care Eyes - no icterus ENT - no bleeding LNs cervical not palpable Neck - no LN Respiratory Normal Breath sounds - CTA CVS S1 S2 + Extremities cold toes and dark left hand finger General GI Soft Rectal deferred female - deferred Skin warm Musculoskeletal moving extremitites - dark foot and left hand finger Neurologically awake - Constitutional Vitals: Last Vital Signs Temp 97.6 F 12/08/18 03:00 Pulse 70 12/08/18 05:20 Resp 24 12/08/18 04:11 BP 110/78 12/08/18 05:20 Pulse Ox 98 12/08/18 04:11 - Labs Lab Results: Laboratory Results - last 24 hr 11/29/18 12/07/18 12/07/18 16:46 07:40 09:00 WBC 17.6 H RBC 5.56 H Hgb 15.7 H Hct 46.9 H MCV 85 MCH 28 MCHC 33 RDW 19.1 H Plt Count 262 Add Manual Diff Complete Total Counted 100 Seg Neuts % (Manual) 89.0 H Band Neutrophils % 0 Lymphocytes % (Manual) 4.0 L Reactive Lymphs % (Man) 0 Monocytes % (Manual) 6.0 Eosinophils % (Manual) 0 Basophils % (Manual) 0 Metamyelocytes % 1.0 Myelocytes % 0 Promyelocytes % 0 Blast Cells % 0 Nucleated RBC % Not Reportable Seg Neutrophils # Man 15.7 H Band Neutrophils # 0.0 Lymphocytes # (Manual) 0.7 L Abs React Lymphs (Man) 0.0 Monocytes # (Manual) 1.1 H Eosinophils # (Manual) 0.0 Basophils # (Manual) 0.0 Metamyelocytes # 0.2 Myelocytes # 0.0 Promyelocytes # 0.0 Blast Cells # 0.0 WBC Morphology Not Reportable Hypersegmented Neuts Not Reportable Hyposegmented Neuts Not Reportable Hypogranular Neuts Not Reportable Smudge Cells Not Reportable Toxic Granulation Not Reportable Toxic Vacuolation Not Reportable Dohle Bodies Not Reportable Pelger-Huet Anomaly Not Reportable Rosalva Rods Not Reportable Platelet Estimate Consistent w auto Clumped Platelets Not Reportable Plt Clumps, EDTA Not Reportable Large Platelets Not Reportable Giant Platelets Not Reportable Platelet Satelliting Not Reportable Plt Morphology Comment Not Reportable RBC Morphology Not Reportable Dimorphic RBCs Not Reportable Polychromasia Few Hypochromasia Not Reportable Poikilocytosis Not Reportable Anisocytosis 1+ Microcytosis Not Reportable Macrocytosis Not Reportable Spherocytes Not Reportable Pappenheimer Bodies Not Reportable Sickle Cells Not Reportable Target Cells Not Reportable Tear Drop Cells Not Reportable Ovalocytes Not Reportable Helmet Cells Not Reportable Garza-[place] Bodies Not Reportable [place] Rings Not Reportable [place] Cells Not Reportable Bite Cells Not Reportable Crenated Cell Not Reportable Elliptocytes Not Reportable Acanthocytes (Spur) Not Reportable Rouleaux Not Reportable Hemoglobin C Crystals Not Reportable Schistocytes Not Reportable Malaria parasites Not Reportable Dominic Bodies Not Reportable Hem Pathologist Commnt No APTT Heparin Anti-Xa Level Sodium Potassium Chloride Carbon Dioxide Anion Gap BUN Creatinine Estimated GFR BUN/Creatinine Ratio Glucose POC Glucose 319 H Calcium Serotonin Release Assay See scanned result 12/07/18 12/07/18 12/07/18 09:00 09:00 11:11 WBC RBC Hgb Hct MCV MCH MCHC RDW Plt Count Add Manual Diff Total Counted Seg Neuts % (Manual) Band Neutrophils % Lymphocytes % (Manual) Reactive Lymphs % (Man) Monocytes % (Manual) Eosinophils % (Manual) Basophils % (Manual) Metamyelocytes % Myelocytes % Promyelocytes % Blast Cells % Nucleated RBC % Seg Neutrophils # Man Band Neutrophils # Lymphocytes # (Manual) Abs React Lymphs (Man) Monocytes # (Manual) Eosinophils # (Manual) Basophils # (Manual) Metamyelocytes # Myelocytes # Promyelocytes # Blast Cells # WBC Morphology Hypersegmented Neuts Hyposegmented Neuts Hypogranular Neuts Smudge Cells Toxic Granulation Toxic Vacuolation Dohle Bodies Pelger-Huet Anomaly Rosalva Rods Platelet Estimate Clumped Platelets Plt Clumps, EDTA Large Platelets Giant Platelets Platelet Satelliting Plt Morphology Comment RBC Morphology Dimorphic RBCs Polychromasia Hypochromasia Poikilocytosis Anisocytosis Microcytosis Macrocytosis Spherocytes Pappenheimer Bodies Sickle Cells Target Cells Tear Drop Cells Ovalocytes Helmet Cells Garza-[place] Bodies [place] Rings Vader Cells Bite Cells Crenated Cell Elliptocytes Acanthocytes (Spur) Rouleaux Hemoglobin C Crystals Schistocytes Malaria parasites Dominic Bodies Hem Pathologist Commnt APTT 41.6 H Heparin Anti-Xa Level Sodium 136 L Potassium 5.1 H D Chloride 98.4 Carbon Dioxide 27 Anion Gap 16 BUN 24 H Creatinine 1.1 Estimated GFR > 60 BUN/Creatinine Ratio 22 Glucose 351 H POC Glucose 319 H Calcium 9.3 D Serotonin Release Assay 12/07/18 12/07/18 12/07/18 16:23 18:48 22:16 WBC RBC Hgb Hct MCV MCH MCHC RDW Plt Count Add Manual Diff Total Counted Seg Neuts % (Manual) Band Neutrophils % Lymphocytes % (Manual) Reactive Lymphs % (Man) Monocytes % (Manual) Eosinophils % (Manual) Basophils % (Manual) Metamyelocytes % Myelocytes % Promyelocytes % Blast Cells % Nucleated RBC % Seg Neutrophils # Man Band Neutrophils # Lymphocytes # (Manual) Abs React Lymphs (Man) Monocytes # (Manual) Eosinophils # (Manual) Basophils # (Manual) Metamyelocytes # Myelocytes # Promyelocytes # Blast Cells # WBC Morphology Hypersegmented Neuts Hyposegmented Neuts Hypogranular Neuts Smudge Cells Toxic Granulation Toxic Vacuolation Dohle Bodies Pelger-Huet Anomaly Rosalva Rods Platelet Estimate Clumped Platelets Plt Clumps, EDTA Large Platelets Giant Platelets Platelet Satelliting Plt Morphology Comment RBC Morphology Dimorphic RBCs Polychromasia Hypochromasia Poikilocytosis Anisocytosis Microcytosis Macrocytosis Spherocytes Pappenheimer Bodies Sickle Cells Target Cells Tear Drop Cells Ovalocytes Helmet Cells Garza-[place] Bodies [place] Rings Vader Cells Bite Cells Crenated Cell Elliptocytes Acanthocytes (Spur) Rouleaux Hemoglobin C Crystals Schistocytes Malaria parasites Dominic Bodies Hem Pathologist Commnt APTT Heparin Anti-Xa Level 0.54 Sodium Potassium Chloride Carbon Dioxide Anion Gap BUN Creatinine Estimated GFR BUN/Creatinine Ratio Glucose POC Glucose 334 H 283 H Calcium Serotonin Release Assay 12/08/18 12/08/18 05:40 08:08 WBC RBC Hgb Hct MCV MCH MCHC RDW Plt Count Add Manual Diff Total Counted Seg Neuts % (Manual) Band Neutrophils % Lymphocytes % (Manual) Reactive Lymphs % (Man) Monocytes % (Manual) Eosinophils % (Manual) Basophils % (Manual) Metamyelocytes % Myelocytes % Promyelocytes % Blast Cells % Nucleated RBC % Seg Neutrophils # Man Band Neutrophils # Lymphocytes # (Manual) Abs React Lymphs (Man) Monocytes # (Manual) Eosinophils # (Manual) Basophils # (Manual) Metamyelocytes # Myelocytes # Promyelocytes # Blast Cells # WBC Morphology Hypersegmented Neuts Hyposegmented Neuts Hypogranular Neuts Smudge Cells Toxic Granulation Toxic Vacuolation Dohle Bodies Pelger-Huet Anomaly Rosalva Rods Platelet Estimate Clumped Platelets Plt Clumps, EDTA Large Platelets Giant Platelets Platelet Satelliting Plt Morphology Comment RBC Morphology Dimorphic RBCs Polychromasia Hypochromasia Poikilocytosis Anisocytosis Microcytosis Macrocytosis Spherocytes Pappenheimer Bodies Sickle Cells Target Cells Tear Drop Cells Ovalocytes Helmet Cells Garza-[place] Bodies [place] Rings Vader Cells Bite Cells Crenated Cell Elliptocytes Acanthocytes (Spur) Rouleaux Hemoglobin C Crystals Schistocytes Malaria parasites Dominic Bodies Hem Pathologist Commnt APTT Heparin Anti-Xa Level Sodium 135 L Potassium 4.0 D Chloride 95.4 L Carbon Dioxide 28 Anion Gap 16 BUN 21 H Creatinine 1.1 Estimated GFR > 60 BUN/Creatinine Ratio 19 Glucose 173 H POC Glucose 182 H Calcium 9.0 Serotonin Release Assay Medications & Allergies - Medications Allergies/Adverse Reactions: Allergies lisinopril Adverse Reaction (Severe, Verified 12/17/13 19:00) SORE THROAT;PERSISTENT COUGH Home Medications: Home Medications Medication Instructions Recorded Confirmed Last Taken Type Aspirin [Aspirin BABY CHEW TAB] 81 mg PO QDAY 11/28/18 11/29/18 11/26/18 History Fluticasone [Flonase] 1 spray NS BID 11/28/18 11/28/18 Unknown History Furosemide [Lasix TAB] 40 mg PO BID 11/28/18 11/28/18 Unknown History Ibuprofen [Motrin] 600 mg PO Q6H PRN 11/28/18 11/28/18 Unknown History Montelukast [Singulair] 10 mg PO QPM 11/28/18 11/28/18 Unknown History Mycophenolate [Cellcept] 500 mg PO BID 11/28/18 11/28/18 Unknown History Mycophenolate [Cellcept] 500 mg PO BID PRN MDD 2 TABS 11/28/18 11/28/18 Unknown History Pantoprazole [Protonix] 40 mg PO QDAY 11/28/18 11/28/18 Unknown History Sacubitril/Valsartan [Entresto 1 each PO BID 11/28/18 11/28/18 Unknown History 49-51 mg] predniSONE [Deltasone] 50 mg PO QDAY 11/28/18 11/28/18 Unknown History raNITIdine HCl [Zantac] 150 mg PO BID 11/28/18 11/28/18 Unknown History Amitriptyline [Elavil] 25 mg PO HS 11/29/18 11/29/18 11/26/18 History Aspirin [Adult Aspirin] 81 mg PO ONCE 11/29/18 11/29/18 11/26/18 History Entresto 49-51 mg 49 mg PO BID 11/29/18 11/29/18 11/26/18 History HYDROcodone/APAP 5-325 5 mg PO Q6HR PRN 11/29/18 11/29/18 Unknown History Active Medications: Generic Name Dose Route Start Last Admin Trade Name Freq PRN Reason Stop Dose Admin Acetaminophen 650 mg 11/28/18 03:02 Tylenol PO Q4H PRN Pain MILD(1-3)/Fever >100.5/TURPIN Alprazolam 0.25 mg 11/30/18 01:09 12/06/18 20:47 Xanax PO 0.25 mg Q8H PRN Administration Anxiety Amiodarone HCl 200 mg 12/02/18 12:00 12/07/18 23:07 Cordarone PO 200 mg BID VIOLA Administration Amitriptyline HCl 25 mg 11/29/18 22:00 12/07/18 23:06 Elavil PO 25 mg HS VIOLA Administration Aspirin 81 mg 11/29/18 10:00 12/07/18 09:08 Baby Aspirin PO 81 mg QDAY VIOLA Administration Dextrose 0 ml 11/28/18 02:19 D50w (25gm) Syringe IV PRN PRN Hypoglycemia Fluticasone Propionate 50 mcg 11/29/18 10:00 12/07/18 23:07 Flonase NS 50 mcg BID VIOLA Administration Hydralazine HCl 10 mg 11/28/18 03:41 Apresoline IV Q6HR PRN Blood Pressure Hydrophilic Ointment 1 applic 11/30/18 11:55 Vaseline Lip Therapy TP DIRECT PRN DRY LIPS Sodium Chloride 1,000 mls @ 125 mls/hr 12/02/18 13:00 12/03/18 11:24 Nacl 0.9% 1000 Ml IV 0 mls/hr DIRECT VIOLA Infusion Heparin Sodium/Sodium Chloride 25,000 unit in 500 mls @ 27 mls/hr 12/07/18 12:00 12/08/18 07:21 Heparin/ 0.45% Nacl-25,000 Unit/500 Ml IV 1,350 units/hr TITR VIOLA 27 mls/hr Administration Protocol 1,350 UNITS/HR Insulin Human Isoph/Insulin Regular 20 unit 12/07/18 08:30 12/07/18 16:31 Humulin 70/30 SUB-Q 20 unit BIDDIAB VIOLA Administration Insulin Human Lispro 0 unit 11/30/18 09:00 12/07/18 23:09 Humalog SUB-Q 4 unit ACHS VIOLA Administration Protocol Metoprolol Tartrate 25 mg 11/30/18 14:00 12/08/18 05:19 Lopressor PO 25 mg Q8HR VIOLA Administration Montelukast Sodium 10 mg 11/29/18 18:00 12/07/18 17:12 Singulair PO 10 mg QPM VIOLA Administration Morphine Sulfate 2 mg 11/28/18 03:02 12/07/18 23:08 Morphine IV 2 mg Q4H PRN Administration Pain, Moderate (4-6) Nitroglycerin 0.75 inch 11/29/18 14:00 12/08/18 05:20 Nitro-Bid 2% TP 0.75 inch QIDNTG VIOLA Administration Protocol Ondansetron HCl 4 mg 11/28/18 03:02 Zofran IV Q8H PRN Nausea And Vomiting Pantoprazole Sodium 40 mg 11/29/18 10:00 12/07/18 09:09 Protonix PO 40 mg QDAY VIOLA Administration Pentoxifylline 400 mg 11/29/18 13:00 12/07/18 23:07 Trental PO 400 mg Q12HR VIOLA Administration Prednisone 50 mg 11/29/18 10:00 12/07/18 09:08 Deltasone PO 50 mg QDAY VIOLA Administration Sodium Chloride 10 ml 11/28/18 10:00 12/07/18 23:08 Sodium Chloride Flush Syringe 10 Ml IV 10 ml BID VIOLA Administration Sodium Chloride 10 ml 11/28/18 03:02 Sodium Chloride Flush Syringe 10 Ml IV PRN PRN LINE FLUSH
[2018-12-08] MEDS: HumaLOG SUB-Q SCH ×4 (08:18→22:29)
--- NOTE | 2018-12-08 09:15 | Progress Note ---
Assessment and Plan - Patient Problems (1) Acute kidney injury Current Visit: Yes Status: Acute Plan to address problem: Suspect Pre-renal azotemia vs Acute tubular necrosis secondary to hypotension. Kidney function improved significantly, Cr down to 1.1. Follow up electrolytes and renal function (2) Hypotension Current Visit: Yes Status: Acute Plan to address problem: Blood pressure has improved. Follow-up blood pressure (3) Hyperkalemia Current Visit: Yes Status: Acute Plan to address problem: Hyperkalemia on presentation improved with medical management. Follow-up electrolytes (4) Hypernatremia Current Visit: Yes Status: Acute Plan to address problem: Hypernatremia secondary to free water losses. now resolved (5) Acrocyanosis Current Visit: Yes Status: Acute Plan to address problem: Etiology uncertain. May be related to scleroderma. Arterial Duplex shows that Diffuse peripheral vascular disease in both lower extremities with occlusive disease of the left anterior tibial and dorsalis pedis arteries. Distal disease in the left hand. 1. RODNEY showed no Thrombus. 2. Vascular input appreciated: Possible severe vasospasm the setting of scleroderma superimposed on baseline peripheral vascular disease. HIT Ab negative (6) Hyperosmolar hyperglycemic coma due to diabetes mellitus without ketoacidosis Current Visit: Yes Status: Acute Plan to address problem: Steroid induced hyperglycemia/newly diagnosed type 2 diabetes mellitus. Blood sugar control by primary attending (7) Heart failure with reduced ejection fraction Current Visit: Yes Status: Acute Plan to address problem: Intravenous fluids stopped. Monitor volume status. (8) Transaminasemia Current Visit: Yes Status: Acute Plan to address problem: Probable ischemic hepatitis. Follow-up liver function tests Subjective Date of service: 12/08/18 Principal diagnosis: ischemic extremitites Interval history: Pt awake alert, denies, fever, chills, n/v/d Objective - Vital Signs Vital signs: Vital Signs - 12hr 12/07/18 12/07/18 12/07/18 21:21 21:31 21:41 Temperature Pulse Rate 78 78 76 Pulse Rate [ From Monitor] Respiratory 25 H 29 H 29 H Rate Blood Pressure 118/82 118/82 118/82 O2 Sat by Pulse 100 98 99 Oximetry 12/07/18 12/07/18 12/07/18 21:51 22:00 22:11 Temperature Pulse Rate 84 78 78 Pulse Rate [ From Monitor] Respiratory 19 46 H 29 H Rate Blood Pressure 118/82 116/83 116/83 O2 Sat by Pulse 99 99 99 Oximetry 12/07/18 12/07/18 12/07/18 22:21 22:31 22:41 Temperature Pulse Rate 77 77 78 Pulse Rate [ From Monitor] Respiratory 47 H 29 H 21 Rate Blood Pressure 116/83 116/83 116/83 O2 Sat by Pulse 100 99 99 Oximetry 12/07/18 12/07/18 12/07/18 22:51 23:00 23:01 Temperature 98 F Pulse Rate 76 83 Pulse Rate [ From Monitor] Respiratory 37 H 19 Rate Blood Pressure 116/83 134/73 O2 Sat by Pulse 99 51 L Oximetry 12/07/18 12/07/18 12/07/18 23:06 23:08 23:11 Temperature Pulse Rate 78 78 Pulse Rate [ From Monitor] Respiratory 22 33 H Rate Blood Pressure 136/73 134/73 O2 Sat by Pulse 99 Oximetry 12/07/18 12/07/18 12/07/18 23:21 23:28 23:31 Temperature Pulse Rate 79 80 77 Pulse Rate [ From Monitor] Respiratory 40 H 39 H 38 H Rate Blood Pressure 134/73 134/73 134/73 O2 Sat by Pulse 99 98 98 Oximetry 12/07/18 12/07/18 12/07/18 23:41 23:45 23:51 Temperature Pulse Rate 76 75 74 Pulse Rate [ From Monitor] Respiratory 32 H 37 H 28 H Rate Blood Pressure 134/73 134/73 134/73 O2 Sat by Pulse 97 97 96 Oximetry 12/08/18 12/08/18 12/08/18 00:00 00:11 00:21 Temperature Pulse Rate 74 75 74 Pulse Rate [ 72 From Monitor] Respiratory 35 H 28 H 32 H Rate Blood Pressure 119/83 119/83 119/83 O2 Sat by Pulse 96 97 98 Oximetry 12/08/18 12/08/18 12/08/18 00:31 00:41 00:51 Temperature Pulse Rate 72 72 72 Pulse Rate [ From Monitor] Respiratory 25 H 37 H 24 Rate Blood Pressure 119/83 119/83 119/83 O2 Sat by Pulse 98 98 97 Oximetry 12/08/18 12/08/18 12/08/18 01:00 01:11 01:21 Temperature Pulse Rate 74 74 72 Pulse Rate [ From Monitor] Respiratory 22 26 H 29 H Rate Blood Pressure 121/84 121/84 121/84 O2 Sat by Pulse 96 97 99 Oximetry 12/08/18 12/08/18 12/08/18 01:31 01:41 01:51 Temperature Pulse Rate 72 77 74 Pulse Rate [ From Monitor] Respiratory 22 27 H 25 H Rate Blood Pressure 121/84 121/84 121/84 O2 Sat by Pulse 99 96 98 Oximetry 12/08/18 12/08/18 12/08/18 02:00 02:10 02:21 Temperature Pulse Rate 76 75 78 Pulse Rate [ From Monitor] Respiratory 26 H 31 H 33 H Rate Blood Pressure 124/85 121/84 124/85 O2 Sat by Pulse 96 99 99 Oximetry 12/08/18 12/08/18 12/08/18 02:31 02:41 02:51 Temperature Pulse Rate 73 73 76 Pulse Rate [ From Monitor] Respiratory 33 H 22 22 Rate Blood Pressure 124/85 124/85 124/85 O2 Sat by Pulse 98 98 98 Oximetry 12/08/18 12/08/18 12/08/18 03:00 03:11 03:21 Temperature 97.6 F Pulse Rate 78 70 76 Pulse Rate [ From Monitor] Respiratory 25 H 19 23 Rate Blood Pressure 109/75 109/75 109/75 O2 Sat by Pulse 97 99 98 Oximetry 12/08/18 12/08/18 12/08/18 03:31 03:41 03:51 Temperature Pulse Rate 81 71 70 Pulse Rate [ From Monitor] Respiratory 18 29 H 31 H Rate Blood Pressure 109/75 109/75 109/75 O2 Sat by Pulse 97 97 96 Oximetry 12/08/18 12/08/18 12/08/18 04:00 04:11 05:00 Temperature Pulse Rate 82 70 72 Pulse Rate [ 80 From Monitor] Respiratory 22 24 29 H Rate Blood Pressure 113/81 113/81 110/78 O2 Sat by Pulse 96 98 97 Oximetry 12/08/18 12/08/18 12/08/18 05:19 05:20 06:00 Temperature Pulse Rate 74 70 71 Pulse Rate [ From Monitor] Respiratory 32 H Rate Blood Pressure 110/78 110/78 111/77 O2 Sat by Pulse 96 Oximetry 12/08/18 12/08/18 12/08/18 07:00 08:00 09:09 Temperature 97.8 F Pulse Rate 70 72 Pulse Rate [ 74 From Monitor] Respiratory 24 37 H Rate Blood Pressure 113/80 107/76 O2 Sat by Pulse 94 96 98 Oximetry - General Appearance General appearance: well-developed, well-nourished, appears stated age, obese EENT: ATNC, PERRL, mucous membranes moist Neck: no JVD Respiratory: Present: Clear to Ascultation Cardiology: regular, S1S2 Gastrointestinal: normoactive bowel sounds, obese Integumentary: no rash, other (no edema ) Neurologic: no focal deficit, alert and oriented x3, gait normal, CN 3-12 intact Psychiatric: mood/affect appropriate, cooperative - Lab 12/07/18 09:00 12/08/18 05:40 Most recent lab results ABG pH 7.414 pH Units (7.350-7.450) 11/28/18 01:01 ABG pCO2 48.8 mm Hg 11/28/18 01:01 ABG pO2 65.7 mm Hg (80.0-90.0) L 11/28/18 01:01 ABG HCO3 30.5 mmol/L (20.0-26.0) H 11/28/18 01:01 ABG O2 Saturation 91.3 % (95.0-99.0) L 11/28/18 01:01 Calcium 9.0 mg/dL (8.4-10.2) 12/08/18 05:40 Phosphorus 3.30 mg/dL (2.5-4.5) 11/30/18 07:18 Magnesium 3.20 mg/dL (1.7-2.3) H 11/30/18 07:18 117.4 mg/dL (0.1-20.0) H 11/29/18 13:40 53 mmol/L 11/29/18 13:40 120 mg/dL (5-11.8) H 11/29/18 13:40 Medications & Allergies - Medications Allergies/Adverse Reactions: Allergies lisinopril Adverse Reaction (Severe, Verified 12/17/13 19:00) SORE THROAT;PERSISTENT COUGH Home Medications: Home Medications Medication Instructions Recorded Confirmed Last Taken Type Aspirin [Aspirin BABY CHEW TAB] 81 mg PO QDAY 11/28/18 11/29/18 11/26/18 History Fluticasone [Flonase] 1 spray NS BID 11/28/18 11/28/18 Unknown History Furosemide [Lasix TAB] 40 mg PO BID 11/28/18 11/28/18 Unknown History Ibuprofen [Motrin] 600 mg PO Q6H PRN 11/28/18 11/28/18 Unknown History Montelukast [Singulair] 10 mg PO QPM 11/28/18 11/28/18 Unknown History Mycophenolate [Cellcept] 500 mg PO BID 11/28/18 11/28/18 Unknown History Mycophenolate [Cellcept] 500 mg PO BID PRN MDD 2 TABS 11/28/18 11/28/18 Unknown History Pantoprazole [Protonix] 40 mg PO QDAY 11/28/18 11/28/18 Unknown History Sacubitril/Valsartan [Entresto 1 each PO BID 11/28/18 11/28/18 Unknown History 49-51 mg] predniSONE [Deltasone] 50 mg PO QDAY 11/28/18 11/28/18 Unknown History raNITIdine HCl [Zantac] 150 mg PO BID 11/28/18 11/28/18 Unknown History Amitriptyline [Elavil] 25 mg PO HS 11/29/18 11/29/18 11/26/18 History Aspirin [Adult Aspirin] 81 mg PO ONCE 11/29/18 11/29/18 11/26/18 History Entresto 49-51 mg 49 mg PO BID 11/29/18 11/29/18 11/26/18 History HYDROcodone/APAP 5-325 5 mg PO Q6HR PRN 11/29/18 11/29/18 Unknown History Active Medications: Generic Name Dose Route Start Last Admin Trade Name Freq PRN Reason Stop Dose Admin Acetaminophen 650 mg 11/28/18 03:02 Tylenol PO Q4H PRN Pain MILD(1-3)/Fever >100.5/TURPIN Alprazolam 0.25 mg 11/30/18 01:09 12/06/18 20:47 Xanax PO 0.25 mg Q8H PRN Administration Anxiety Amiodarone HCl 200 mg 12/02/18 12:00 12/07/18 23:07 Cordarone PO 200 mg BID VIOLA Administration Amitriptyline HCl 25 mg 11/29/18 22:00 12/07/18 23:06 Elavil PO 25 mg HS VIOLA Administration Aspirin 81 mg 11/29/18 10:00 12/07/18 09:08 Baby Aspirin PO 81 mg QDAY VIOLA Administration Dextrose 0 ml 11/28/18 02:19 D50w (25gm) Syringe IV PRN PRN Hypoglycemia Fluticasone Propionate 50 mcg 11/29/18 10:00 12/07/18 23:07 Flonase NS 50 mcg BID VIOLA Administration Hydralazine HCl 10 mg 11/28/18 03:41 Apresoline IV Q6HR PRN Blood Pressure Hydrophilic Ointment 1 applic 11/30/18 11:55 Vaseline Lip Therapy TP DIRECT PRN DRY LIPS Sodium Chloride 1,000 mls @ 125 mls/hr 12/02/18 13:00 12/03/18 11:24 Nacl 0.9% 1000 Ml IV 0 mls/hr DIRECT VIOLA Infusion Heparin Sodium/Sodium Chloride 25,000 unit in 500 mls @ 27 mls/hr 12/07/18 12:00 12/08/18 07:21 Heparin/ 0.45% Nacl-25,000 Unit/500 Ml IV 1,350 units/hr TITR VIOLA 27 mls/hr Administration Protocol 1,350 UNITS/HR Insulin Human Isoph/Insulin Regular 20 unit 12/07/18 08:30 12/08/18 08:18 Humulin 70/30 SUB-Q 20 unit BIDDIAB VIOLA Administration Insulin Human Lispro 0 unit 11/30/18 09:00 12/08/18 08:18 Humalog SUB-Q 2 unit ACHS VIOLA Administration Protocol Metoprolol Tartrate 25 mg 11/30/18 14:00 12/08/18 05:19 Lopressor PO 25 mg Q8HR VIOLA Administration Montelukast Sodium 10 mg 11/29/18 18:00 12/07/18 17:12 Singulair PO 10 mg QPM VIOLA Administration Morphine Sulfate 2 mg 11/28/18 03:02 12/07/18 23:08 Morphine IV 2 mg Q4H PRN Administration Pain, Moderate (4-6) Nitroglycerin 0.75 inch 11/29/18 14:00 12/08/18 05:20 Nitro-Bid 2% TP 0.75 inch QIDNTG VIOLA Administration Protocol Ondansetron HCl 4 mg 11/28/18 03:02 Zofran IV Q8H PRN Nausea And Vomiting Pantoprazole Sodium 40 mg 11/29/18 10:00 12/07/18 09:09 Protonix PO 40 mg QDAY VIOLA Administration Pentoxifylline 400 mg 11/29/18 13:00 12/07/18 23:07 Trental PO 400 mg Q12HR VIOLA Administration Prednisone 50 mg 11/29/18 10:00 12/07/18 09:08 Deltasone PO 50 mg QDAY VIOLA Administration Sodium Chloride 10 ml 11/28/18 10:00 12/07/18 23:08 Sodium Chloride Flush Syringe 10 Ml IV 10 ml BID VIOLA Administration Sodium Chloride 10 ml 11/28/18 03:02 Sodium Chloride Flush Syringe 10 Ml IV PRN PRN LINE FLUSH
[2018-12-08] MEDS: CORDARONE PO SCH ×2 (10:15→22:26)
[2018-12-08] MEDS: BABY ASPIRIN PO SCH (10:15)
[2018-12-08] MEDS: DELTASONE PO SCH (10:16)
[2018-12-08] MEDS: ENTRESTO 49-51 MG PO SCH ×2 (10:16→22:27)
[2018-12-08] MEDS: SODIUM CHLORIDE FLUSH SYRINGE 10 ML IV SCH ×2 (10:17→22:30)
[2018-12-08] MEDS: FLONASE NS SCH ×2 (10:17→22:28)
[2018-12-08] MEDS: PROTONIX PO SCH (10:17)
[2018-12-08] MEDS: TRENTAL PO SCH ×2 (10:18→22:30)
--- NOTE | 2018-12-08 10:23 | Progress Note ---
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 Maximize medications as blood pressure allows. Presence of AICD on 11/28/18 patient had multiple shocks from her ICD for runs of VT/VF currently on amiodarone and metoprolol for suppression - continue current therapy Elevated troponin Probably secondary to demand ischemia due to acute process RODNEY reports a small mobile echogenic density noted on the PM wire on the RA side - this is likely a small thrombus given negative blood cultures. This is on the right side of the heart and therefore has nothing to do with her upper extremity process. Typically we recommend systemic anticoagulation for 3 months then re- imaging to document resolution of the small clot. Subjective Date of service: 12/08/18 Principal diagnosis: ischemic extremitites Interval history: No acute events. Resting comfortably. no chest pain or SOB. Objective Vital Signs Temp Pulse Pulse Resp Resp BP Pulse Ox 12/08/18 10:17 73 111/71 12/08/18 09:09 98 12/08/18 08:00 97.8 F 72 74 37 H 107/76 96 12/08/18 07:00 70 24 113/80 94 12/08/18 06:00 71 32 H 111/77 96 12/08/18 05:20 70 110/78 12/08/18 05:19 74 110/78 12/08/18 05:00 72 29 H 110/78 97 12/08/18 04:11 70 24 113/81 98 12/08/18 04:00 82 80 22 113/81 96 12/08/18 03:51 70 31 H 109/75 96 12/08/18 03:41 71 29 H 109/75 97 12/08/18 03:31 81 18 109/75 97 12/08/18 03:21 76 23 109/75 98 12/08/18 03:11 70 19 109/75 99 12/08/18 03:00 97.6 F 78 25 H 109/75 97 12/08/18 02:51 76 22 124/85 98 12/08/18 02:41 73 22 124/85 98 12/08/18 02:31 73 33 H 124/85 98 12/08/18 02:21 78 33 H 124/85 99 12/08/18 02:10 75 31 H 121/84 99 12/08/18 02:00 76 26 H 124/85 96 12/08/18 01:51 74 25 H 121/84 98 12/08/18 01:41 77 27 H 121/84 96 12/08/18 01:31 72 22 121/84 99 12/08/18 01:21 72 29 H 121/84 99 12/08/18 01:11 74 26 H 121/84 97 12/08/18 01:00 74 22 121/84 96 12/08/18 00:51 72 24 119/83 97 12/08/18 00:41 72 37 H 119/83 98 12/08/18 00:31 72 25 H 119/83 98 12/08/18 00:21 74 32 H 119/83 98 12/08/18 00:11 75 28 H 119/83 97 12/08/18 00:00 74 72 35 H 119/83 96 12/07/18 23:51 74 28 H 134/73 96 12/07/18 23:45 75 37 H 134/73 97 12/07/18 23:41 76 32 H 134/73 97 12/07/18 23:31 77 38 H 134/73 98 12/07/18 23:28 80 39 H 134/73 98 12/07/18 23:21 79 40 H 134/73 99 12/07/18 23:11 78 33 H 134/73 99 12/07/18 23:08 22 12/07/18 23:06 78 136/73 12/07/18 23:01 83 19 134/73 51 L 12/07/18 23:00 98 F 12/07/18 22:51 76 37 H 116/83 99 12/07/18 22:41 78 21 116/83 99 12/07/18 22:31 77 29 H 116/83 99 12/07/18 22:21 77 47 H 116/83 100 12/07/18 22:11 78 29 H 116/83 99 12/07/18 22:00 78 46 H 116/83 99 12/07/18 21:51 84 19 118/82 99 12/07/18 21:41 76 29 H 118/82 99 12/07/18 21:31 78 29 H 118/82 98 12/07/18 21:21 78 25 H 118/82 100 12/07/18 21:11 79 41 H 118/82 100 12/07/18 21:00 85 48 H 118/82 94 12/07/18 20:51 82 26 H 121/79 12/07/18 20:41 82 18 121/79 98 12/07/18 20:31 81 38 H 121/79 100 12/07/18 20:21 77 13 121/79 99 12/07/18 20:11 77 29 H 121/79 97 12/07/18 20:00 78 75 37 H 121/79 96 12/07/18 19:51 75 42 H 115/75 99 12/07/18 19:41 77 19 115/75 98 12/07/18 19:31 76 38 H 115/75 96 12/07/18 19:21 78 44 H 115/75 97 12/07/18 19:11 79 42 H 115/75 98 12/07/18 19:00 97.7 F 79 48 H 26 H 115/75 97 12/07/18 18:51 79 21 135/99 99 12/07/18 18:40 80 29 H 135/99 12/07/18 18:31 77 22 135/99 98 12/07/18 18:21 82 19 135/99 12/07/18 18:11 81 19 135/99 100 12/07/18 18:00 82 20 135/99 96 12/07/18 17:51 78 37 H 120/70 99 12/07/18 17:41 78 47 H 120/70 98 12/07/18 17:30 79 19 120/70 98 12/07/18 17:21 80 43 H 120/70 98 12/07/18 17:12 80 120/70 12/07/18 17:11 85 36 H 120/70 98 12/07/18 17:00 79 22 120/70 95 12/07/18 16:51 81 12 111/82 98 12/07/18 16:41 79 32 H 111/82 91 12/07/18 16:31 74 28 H 111/82 99 12/07/18 16:21 75 25 H 111/82 100 12/07/18 16:11 75 27 H 111/82 12/07/18 16:00 73 79 47 H 111/82 99 12/07/18 15:51 72 27 H 121/83 12/07/18 15:41 72 38 H 121/83 12/07/18 15:31 72 36 H 121/83 100 12/07/18 15:21 72 17 121/83 12/07/18 15:11 73 26 H 121/83 12/07/18 15:00 97.9 F 73 34 H 121/83 12/07/18 14:51 78 21 118/65 12/07/18 14:41 80 27 H 118/65 12/07/18 14:31 84 25 H 118/65 12/07/18 14:21 87 16 118/65 12/07/18 14:11 82 32 H 118/65 12/07/18 14:00 84 51 H 118/65 12/07/18 13:51 81 27 H 122/91 12/07/18 13:41 81 31 H 122/91 98 12/07/18 13:31 80 29 H 122/91 99 12/07/18 13:21 87 42 H 122/91 97 12/07/18 13:15 82 122/91 12/07/18 13:14 82 122/91 12/07/18 13:11 83 42 H 122/91 98 12/07/18 13:00 86 20 122/91 12/07/18 12:51 90 36 H 118/81 98 12/07/18 12:41 87 23 118/81 98 12/07/18 12:31 79 11 L 118/81 99 12/07/18 12:21 76 25 H 118/81 98 12/07/18 12:11 77 25 H 118/81 99 12/07/18 12:00 79 75 38 H 118/81 96 12/07/18 11:51 77 26 H 115/82 98 12/07/18 11:41 77 29 H 115/82 99 12/07/18 11:31 76 28 H 115/82 99 12/07/18 11:21 80 26 H 115/82 99 12/07/18 11:11 77 15 115/82 99 12/07/18 11:00 97.4 F L 77 14 115/82 98 08/27/19 10:51 77 10 L 127/88 100 12/07/18 10:41 80 24 127/88 100 12/07/18 10:31 76 30 H 127/88 98 12/07/18 10:21 77 34 H 127/88 98 - Physical Examination General: No Apparent Distress HEENT: Positive: PERRL Neck: Positive: trachea midline Neuro: Positive: Other (sedated, on the vent) Abdomen: Positive: Soft Skin: Positive: Clear Extremities: Present: Other - Labs and Meds Comprehensive Metabolic Panel 12/08/18 Range/Units 05:40 Sodium 135 L (137-145) mmol/L Potassium 4.0 D (3.6-5.0) mmol/L Chloride 95.4 L (98-107) mmol/L Carbon Dioxide 28 (22-30) mmol/L BUN 21 H (7-17) mg/dL Creatinine 1.1 (0.7-1.2) mg/dL Glucose 173 H (65-100) mg/dL Calcium 9.0 (8.4-10.2) mg/dL
--- NOTE | 2018-12-08 11:55 | Progress Note ---
Assessment and Plan Assessment and plan: Ischemic lower > upper extremity. Vas Surgery following, Dr. Hernandez Cont. 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 Anti-ccp Hyperosmolar hyperglycemic state (HHS) in a newly diagnosed Diabetes-new onset -Patient was admitted to the ICU on insulin drip, now off Insulin drip -Continue serial BMP level monitoring -Cont. Novolin 70/30 Diabetes mellitus type 2-new onset Sepsis -CT abd/pelvis showed generalized bronchiectasis -Blood cultures no growth Vtach s/p shocked 8 tiemes by AICD, as per interrogation, notes in paper chart Cont. Amiodarone cardiology following, b-ernesto added RODNEY planned for Thursday morning Metabolic encephalopathy, resolved -Head CT scan negative -We'll monitor clinically Acute hypoxic respiratory failure. O2 and BiPAP as clinically indicated. CATRACHO Continue CPAP during sleep and when necessary. Interstitial lung disease. Continue per pulmonary. Systemic sclerosis Elevated troponin -Probably secondary to demand ischemia due to acute process -We'll continue serial troponin and EKG monitoring EDGARDO -Probably vasomotor nephropathy due to dehydration -On IV fluid, will monitor creatinine level -Nephrology following Abnormal LFT -Probably due to acute process -CT abd/pelvis negative for liver pathology -We'll monitor levels Hypertension -Stable -On when necessary hydralazine Cardiomyopathy with EF of 20-25% -Status post AICD placement -No acute exacerbation GERD -On famotidine Severe malnutrition/hypoalbuminemia: Nutriyion consult DVT prophylaxis with heparin Partient has systemic sclerosis, 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 Was on Cellcept, but I did not resume because it may cause thrombosis Full code status History Interval history: Since seen and examined medical records reviewed Patient is concerned about ischemia or infarction process and fingers Vascular and orthopedic following Patient is alert awake oriented Vital signs noted Hospitalist Physical - Constitutional Vitals: Temp Pulse Resp BP Pulse Ox 97.8 F 73 37 H 111/71 98 12/08/18 08:00 12/08/18 10:17 12/08/18 08:00 12/08/18 10:17 12/08/18 09:09 General appearance: Present: no acute distress, well-nourished, obese - EENT Eyes: Present: PERRL, EOM intact - Neck Neck: Present: supple, normal ROM - Respiratory Respiratory effort: normal Respiratory: bilateral: diminished, negative: rales, rhonchi, wheezing - Cardiovascular Rhythm: regular Heart Sounds: Present: S1 & S2 - Extremities Extremities: abnormal (ischemia of bilateral toes of feet, left hand fingers) - Abdominal General gastrointestinal: soft, non-tender, non-distended, normal bowel sounds - Integumentary Integumentary: Present: clear, warm - Psychiatric Psychiatric: appropriate mood/affect, cooperative - Neurologic Neurologic: moves all extremities Results - Labs CBC & Chem 7: 12/09/18 05:25 12/09/18 05:25 Labs: Laboratory Last Values WBC 17.6 K/mm3 (4.5-11.0) H 12/07/18 09:00 RBC 5.56 M/mm3 (3.65-5.03) H 12/07/18 09:00 Hgb 15.7 gm/dl (10.1-14.3) H 12/07/18 09:00 Hct 46.9 % (30.3-42.9) H 12/07/18 09:00 MCV 85 fl (79-97) 12/07/18 09:00 MCH 28 pg (28-32) 12/07/18 09:00 MCHC 33 % (30-34) 12/07/18 09:00 RDW 19.1 % (13.2-15.2) H 12/07/18 09:00 Plt Count 262 K/mm3 (140-440) 12/07/18 09:00 Lymph % (Auto) 2.6 % (13.4-35.0) L 12/05/18 06:10 [place] % (Auto) 14.8 % (0.0-7.3) H 12/05/18 06:10 Eos % (Auto) 0.1 % (0.0-4.3) 12/05/18 06:10 Baso % (Auto) 0.3 % (0.0-1.8) 12/05/18 06:10 Lymph # 0.5 K/mm3 (1.2-5.4) L 12/05/18 06:10 [place] # 2.8 K/mm3 (0.0-0.8) H 12/05/18 06:10 Eos # 0.0 K/mm3 (0.0-0.4) 12/05/18 06:10 Baso # 0.1 K/mm3 (0.0-0.1) 12/05/18 06:10 Add Manual Diff Complete 12/07/18 09:00 Total Counted 100 12/07/18 09:00 Seg Neutrophils % 82.2 % (40.0-70.0) H 12/05/18 06:10 Seg Neuts % (Manual) 89.0 % (40.0-70.0) H 12/07/18 09:00 0 % 12/07/18 09:00 4.0 % (13.4-35.0) L 12/07/18 09:00 Reactive Lymphs % (Man) 0 % 12/07/18 09:00 6.0 % (0.0-7.3) 12/07/18 09:00 0 % (0.0-4.3) 12/07/18 09:00 0 % (0.0-1.8) 12/07/18 09:00 1.0 % 12/07/18 09:00 0 % 12/07/18 09:00 0 % 12/07/18 09:00 0 % 12/07/18 09:00 Nucleated RBC % Not Reportable 12/07/18 09:00 Seg Neutrophils # 15.5 K/mm3 (1.8-7.7) H 12/05/18 06:10 Seg Neutrophils # Man 15.7 K/mm3 (1.8-7.7) H 12/07/18 09:00 Band Neutrophils # 0.0 K/mm3 12/07/18 09:00 0.7 K/mm3 (1.2-5.4) L 12/07/18 09:00 Abs React Lymphs (Man) 0.0 K/mm3 12/07/18 09:00 1.1 K/mm3 (0.0-0.8) H 12/07/18 09:00 0.0 K/mm3 (0.0-0.4) 12/07/18 09:00 0.0 K/mm3 (0.0-0.1) 12/07/18 09:00 0.2 K/mm3 12/07/18 09:00 0.0 K/mm3 12/07/18 09:00 0.0 K/mm3 12/07/18 09:00 Blast Cells # 0.0 K/mm3 12/07/18 09:00 WBC Morphology Not Reportable 12/07/18 09:00 Hypersegmented Neuts Not Reportable 12/07/18 09:00 Hyposegmented Neuts Not Reportable 12/07/18 09:00 Hypogranular Neuts Not Reportable 12/07/18 09:00 Not Reportable 12/07/18 09:00 Not Reportable 12/07/18 09:00 Not Reportable 12/07/18 09:00 Not Reportable 12/07/18 09:00 Not Reportable 12/07/18 09:00 Not Reportable 12/07/18 09:00 Consistent w auto 12/07/18 09:00 Not Reportable 12/07/18 09:00 Plt Clumps, EDTA Not Reportable 12/07/18 09:00 Not Reportable 12/07/18 09:00 Not Reportable 12/07/18 09:00 Not Reportable 12/07/18 09:00 Plt Morphology Comment Not Reportable 12/07/18 09:00 RBC Morphology Not Reportable 12/07/18 09:00 Dimorphic RBCs Not Reportable 12/07/18 09:00 Few 12/07/18 09:00 Not Reportable 12/07/18 09:00 Not Reportable 12/07/18 09:00 1+ 12/07/18 09:00 Not Reportable 12/07/18 09:00 Not Reportable 12/07/18 09:00 Not Reportable 12/07/18 09:00 Not Reportable 12/07/18 09:00 Not Reportable 12/07/18 09:00 Not Reportable 12/07/18 09:00 Not Reportable 12/07/18 09:00 Not Reportable 12/07/18 09:00 Not Reportable 12/07/18 09:00 Not Reportable 12/07/18 09:00 Not Reportable 12/07/18 09:00 Not Reportable 12/07/18 09:00 Not Reportable 12/07/18 09:00 Not Reportable 12/07/18 09:00 Not Reportable 12/07/18 09:00 Acanthocytes (Spur) Not Reportable 12/07/18 09:00 Rouleaux Not Reportable 12/07/18 09:00 Not Reportable 12/07/18 09:00 Not Reportable 12/07/18 09:00 Not Reportable 12/07/18 09:00 ESR 1 mm/Hr (0-20) 12/03/18 14:33 Not Reportable 12/07/18 09:00 Hem Pathologist Commnt No 12/07/18 09:00 PT 15.6 Sec. (12.2-14.9) H 11/28/18 01:01 INR 1.27 (0.87-1.13) H 11/28/18 01:01 APTT 41.6 Sec. (24.2-36.6) H 12/07/18 09:00 Heparin Anti-Xa Level 0.54 U.I./ml (0.3-0.7) 12/07/18 18:48 Heparin Anti-Xa, Unfract Negative (Negative) 11/29/18 16:46 POC ABG pH 7.413 (7.35-7.45) 12/01/18 10:39 ABG pH 7.414 pH Units (7.350-7.450) 11/28/18 01:01 POC ABG pCO2 30.6 (35-45) L 12/01/18 10:39 ABG pCO2 48.8 mm Hg 11/28/18 01:01 POC ABG pO2 95 (80-105) 12/01/18 10:39 ABG pO2 65.7 mm Hg (80.0-90.0) L 11/28/18 01:01 POC ABG HCO3 19.5 (22-26 mml/L) 12/01/18 10:39 ABG HCO3 30.5 mmol/L (20.0-26.0) H 11/28/18 01:01 POC ABG Total CO2 20 (23-27mmol/L) 12/01/18 10:39 POC ABG O2 Sat 98 12/01/18 10:39 ABG O2 Saturation 91.3 % (95.0-99.0) L 11/28/18 01:01 ABG O2 Content 22.2 (0.0-44) 11/28/18 01:01 POC ABG Base Excess -5 ((-2) - (+3)mmol/L) 12/01/18 10:39 ABG Base Excess 4.6 mmol/L (-2.0-3.0) H 11/28/18 01:01 ABG Hemoglobin 18.0 gm/dl (12.0-16.0) H 11/28/18 01:01 ABG Carboxyhemoglobin 3.1 % (0.0-5.0) 11/28/18 01:01 ABG Methemoglobin 0.5 % (0.0-1.5) 11/28/18 01:01 VBG pH 7.414 (7.320-7.420) 11/28/18 01:01 88.0 % (95.0-99.0) L 11/28/18 01:01 28 % 12/01/18 10:39 Sodium 135 mmol/L (137-145) L 12/08/18 05:40 Potassium 4.0 mmol/L (3.6-5.0) D 12/08/18 05:40 Chloride 95.4 mmol/L (98-107) L 12/08/18 05:40 Carbon Dioxide 28 mmol/L (22-30) 12/08/18 05:40 16 mmol/L 12/08/18 05:40 BUN 21 mg/dL (7-17) H 12/08/18 05:40 1.1 mg/dL (0.7-1.2) 12/08/18 05:40 Estimated GFR > 60 ml/min 12/08/18 05:40 19 % 12/08/18 05:40 Glucose 173 mg/dL (65-100) H 12/08/18 05:40 POC Glucose 182 (70-105) H 12/08/18 08:08 12.5 % (4-6) H 11/28/18 01:01 Lactic Acid 5.00 mmol/L (0.7-2.0) H* 11/28/18 15:14 Calcium 9.0 mg/dL (8.4-10.2) 12/08/18 05:40 Phosphorus 3.30 mg/dL (2.5-4.5) 11/30/18 07:18 Magnesium 3.20 mg/dL (1.7-2.3) H 11/30/18 07:18 2.00 mg/dL (0.1-1.2) H 12/02/18 04:45 1.3 mg/dL (0-0.2) H 11/28/18 01:01 1.1 mg/dL 11/28/18 01:01 AST 156 units/L (5-40) H 12/02/18 04:45 ALT 183 units/L (7-56) H 12/02/18 04:45 225 units/L (35-129) H 12/02/18 04:45 30.0 umol/L (25-60) 11/28/18 01:01 976 units/L (91-180) H 12/01/18 13:45 228 units/L (30-135) H 11/28/18 01:01 0.030 ng/mL (0.00-0.029) H D 11/28/18 07:50 7.70 mg/dL (0.00-1.30) H 12/03/18 14:33 5.9 g/dL (6.3-8.2) L D 12/02/18 04:45 2.6 g/dL (3.9-5) L 12/02/18 04:45 0.8 % 12/02/18 04:45 Triglycerides 356 mg/dL (2-149) H 11/28/18 01:01 Cholesterol 200 mg/dL (50-199) H 11/28/18 01:01 125 mg/dL (50-130) 11/28/18 01:01 39 mg/dL (40-59) L 11/28/18 01:01 5.12 % 11/28/18 01:01 See scanned result 11/29/18 16:46 TSH 0.288 mlU/mL (0.270-4.200) 11/28/18 01:01 HCG, Quant < 2 mIU/mL (0-4) 11/28/18 01:01 Straw (Yellow) 11/28/18 00:37 Clear (Clear) 11/28/18 00:37 7.0 (5.0-7.0) 11/28/18 00:37 Ur Specific [place] 1.023 (1.003-1.030) 11/28/18 00:37 30 mg/dl mg/dL (Negative) 11/28/18 00:37 >=500 mg/dL (Negative) 11/28/18 00:37 Tr mg/dL (Negative) 11/28/18 00:37 Sm (Negative) 11/28/18 00:37 Neg (Negative) 11/28/18 00:37 Neg (Negative) 11/28/18 00:37 < 2.0 mg/dL (<2.0) 11/28/18 00:37 Ur Leukocyte Esterase Neg (Negative) 11/28/18 00:37 < 1.0 /HPF (0.0-6.0) 11/28/18 00:37 1.0 /HPF (0.0-6.0) 11/28/18 00:37 None seen (None Seen) 11/29/18 13:40 117.4 mg/dL (0.1-20.0) H 11/29/18 13:40 53 mmol/L 11/29/18 13:40 120 mg/dL (5-11.8) H 11/29/18 13:40 Urine HCG, Qual Negative (Negative) 11/28/18 Unknown Salicylates < 0.3 mg/dL (2.8-20.0) L 11/28/18 01:01 Presumptive negative 11/28/18 00:37 Presumptive negative 11/28/18 00:37 Acetaminophen < 5.0 ug/mL (10.0-30.0) L 11/28/18 01:01 Ur Barbiturates Screen Presumptive negative 11/28/18 00:37 Ur Phencyclidine Scrn Presumptive negative 11/28/18 00:37 Ur Amphetamines Screen Presumptive negative 11/28/18 00:37 U Benzodiazepines Scrn Presumptive negative 11/28/18 00:37 Presumptive negative 11/28/18 00:37 U Marijuana (THC) Screen Presumptive negative 11/28/18 00:37 Disclamer 11/28/18 00:37 Plasma/Serum Alcohol < 0.01 % (0-0.07) 11/28/18 01:01 13 IU/ml (0-13) 12/03/18 14:33 Heparin-induced Plt Ab Negative (Negative) 11/29/18 16:46 UF Heparin High Dose 18 % Release 11/29/18 16:46 GALE UFH Low Dose 0.1 12 % Release 11/29/18 16:46 GALE UFH Low Dose 0.5 16 % Release 11/29/18 16:46 Blood Type B POSITIVE 11/28/18 01:01 Antibody Screen Negative 11/28/18 01:01 Active Medications - Current Medications Current Medications: Generic Name Dose Route Start Last Admin Trade Name Freq PRN Reason Stop Dose Admin Acetaminophen 650 mg 11/28/18 03:02 Tylenol PO Q4H PRN Pain MILD(1-3)/Fever >100.5/TURPIN Alprazolam 0.25 mg 11/30/18 01:09 12/06/18 20:47 Xanax PO 0.25 mg Q8H PRN Administration Anxiety Amiodarone HCl 200 mg 12/02/18 12:00 12/08/18 10:15 Cordarone PO 200 mg BID VIOLA Administration Amitriptyline HCl 25 mg 11/29/18 22:00 12/07/18 23:06 Elavil PO 25 mg HS VIOLA Administration Aspirin 81 mg 11/29/18 10:00 12/08/18 10:15 Baby Aspirin PO 81 mg QDAY VIOLA Administration Dextrose 0 ml 11/28/18 02:19 D50w (25gm) Syringe IV PRN PRN Hypoglycemia Fluticasone Propionate 50 mcg 11/29/18 10:00 12/08/18 10:17 Flonase NS 50 mcg BID VIOLA Administration Hydralazine HCl 10 mg 11/28/18 03:41 Apresoline IV Q6HR PRN Blood Pressure Hydrophilic Ointment 1 applic 11/30/18 11:55 Vaseline Lip Therapy TP DIRECT PRN DRY LIPS Sodium Chloride 1,000 mls @ 125 mls/hr 12/02/18 13:00 12/03/18 11:24 Nacl 0.9% 1000 Ml IV 0 mls/hr DIRECT VIOLA Infusion Heparin Sodium/Sodium Chloride 25,000 unit in 500 mls @ 27 mls/hr 12/07/18 12:00 12/08/18 07:21 Heparin/ 0.45% Nacl-25,000 Unit/500 Ml IV 1,350 units/hr TITR VIOLA 27 mls/hr Administration Protocol 1,350 UNITS/HR Insulin Human Isoph/Insulin Regular 20 unit 12/07/18 08:30 12/08/18 08:18 Humulin 70/30 SUB-Q 20 unit BIDDIAB VIOLA Administration Insulin Human Lispro 0 unit 11/30/18 09:00 12/08/18 08:18 Humalog SUB-Q 2 unit ACHS VIOLA Administration Protocol Metoprolol Tartrate 25 mg 11/30/18 14:00 12/08/18 05:19 Lopressor PO 25 mg Q8HR VIOLA Administration Montelukast Sodium 10 mg 11/29/18 18:00 12/07/18 17:12 Singulair PO 10 mg QPM VIOLA Administration Morphine Sulfate 2 mg 11/28/18 03:02 12/07/18 23:08 Morphine IV 2 mg Q4H PRN Administration Pain, Moderate (4-6) Nitroglycerin 0.75 inch 11/29/18 14:00 12/08/18 10:17 Nitro-Bid 2% TP 0.75 inch QIDNTG VIOLA Administration Protocol Ondansetron HCl 4 mg 11/28/18 03:02 Zofran IV Q8H PRN Nausea And Vomiting Pantoprazole Sodium 40 mg 11/29/18 10:00 12/08/18 10:17 Protonix PO 40 mg QDAY VIOLA Administration Pentoxifylline 400 mg 11/29/18 13:00 12/08/18 10:18 Trental PO 400 mg Q12HR VIOLA Administration Prednisone 50 mg 11/29/18 10:00 12/08/18 10:16 Deltasone PO 50 mg QDAY VIOLA Administration Sodium Chloride 10 ml 11/28/18 10:00 12/08/18 10:17 Sodium Chloride Flush Syringe 10 Ml IV 10 ml BID VIOLA Administration Sodium Chloride 10 ml 11/28/18 03:02 Sodium Chloride Flush Syringe 10 Ml IV PRN PRN LINE FLUSH Nutrition/Malnutrition Assess - Dietary Evaluation Nutrition/Malnutrition Findings: Nutrition Notes Start: 11/29/18 14:34 Freq: Status: Active Protocol: Document 11/29/18 14:35 LM (Rec: 11/29/18 14:40 LM [id number]) Nutrition Notes Need for Assessment generated from: Education Initial or Follow up Brief Note Current Diagnosis Diabetes,Hypertension Subjective/Other Information Consult for DM education. #1 Nutrition Diagnosis Food and nutrition-related knowledge deficit Etiology No prior DM diet education As Evidenced by Signs and Symptoms Pt statement of needing DM diet education, HGB A1C of 12. 5, BG 203 Nutrition Intervention Teaching Recipient Patient Learning Readiness Good Teaching Methods Discussion,Handout Education Handouts Provided Carbohydrate Counting for People with Diabetes RD phone number provided Yes Patient aware of follow up options Yes Revisit per MD consult or patient Sign Off request:
--- NOTE | 2018-12-08 12:35 | Progress Note ---
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 1. Pulm status is stable. 2. GALE is negative, so ok to change to heparin drip. Heme is following. 3. Rate control per cards. 4. CPAP QHS Will sign off. Call if questions. Subjective Date of service: 12/08/18 Principal diagnosis: ischemic extremitites Interval history: Remains on room air. Pulm status is stable. Objective Vital Signs - 12hr 12/08/18 12/08/18 12/08/18 00:41 00:51 01:00 Temperature Pulse Rate 72 72 74 Pulse Rate [ From Monitor] Respiratory 37 H 24 22 Rate Blood Pressure 119/83 119/83 121/84 O2 Sat by Pulse 98 97 96 Oximetry 12/08/18 12/08/18 12/08/18 01:11 01:21 01:31 Temperature Pulse Rate 74 72 72 Pulse Rate [ From Monitor] Respiratory 26 H 29 H 22 Rate Blood Pressure 121/84 121/84 121/84 O2 Sat by Pulse 97 99 99 Oximetry 12/08/18 12/08/18 12/08/18 01:41 01:51 02:00 Temperature Pulse Rate 77 74 76 Pulse Rate [ From Monitor] Respiratory 27 H 25 H 26 H Rate Blood Pressure 121/84 121/84 124/85 O2 Sat by Pulse 96 98 96 Oximetry 12/08/18 12/08/18 12/08/18 02:10 02:21 02:31 Temperature Pulse Rate 75 78 73 Pulse Rate [ From Monitor] Respiratory 31 H 33 H 33 H Rate Blood Pressure 121/84 124/85 124/85 O2 Sat by Pulse 99 99 98 Oximetry 12/08/18 12/08/18 12/08/18 02:41 02:51 03:00 Temperature 97.6 F Pulse Rate 73 76 78 Pulse Rate [ From Monitor] Respiratory 22 22 25 H Rate Blood Pressure 124/85 124/85 109/75 O2 Sat by Pulse 98 98 97 Oximetry 12/08/18 12/08/18 12/08/18 03:11 03:21 03:31 Temperature Pulse Rate 70 76 81 Pulse Rate [ From Monitor] Respiratory 19 23 18 Rate Blood Pressure 109/75 109/75 109/75 O2 Sat by Pulse 99 98 97 Oximetry 12/08/18 12/08/18 12/08/18 03:41 03:51 04:00 Temperature Pulse Rate 71 70 82 Pulse Rate [ 80 From Monitor] Respiratory 29 H 31 H 22 Rate Blood Pressure 109/75 109/75 113/81 O2 Sat by Pulse 97 96 96 Oximetry 12/08/18 12/08/18 12/08/18 04:11 05:00 05:19 Temperature Pulse Rate 70 72 74 Pulse Rate [ From Monitor] Respiratory 24 29 H Rate Blood Pressure 113/81 110/78 110/78 O2 Sat by Pulse 98 97 Oximetry 12/08/18 12/08/18 12/08/18 05:20 06:00 07:00 Temperature Pulse Rate 70 71 70 Pulse Rate [ From Monitor] Respiratory 32 H 24 Rate Blood Pressure 110/78 111/77 113/80 O2 Sat by Pulse 96 94 Oximetry 12/08/18 12/08/18 12/08/18 08:00 09:09 10:17 Temperature 97.8 F Pulse Rate 72 73 Pulse Rate [ 74 From Monitor] Respiratory 37 H Rate Blood Pressure 107/76 111/71 O2 Sat by Pulse 96 98 Oximetry Constitutional: no acute distress, alert Eyes: non-icteric ENT: oropharynx moist Neck: supple Effort: normal Ascultation: Bilateral: clear, diminished breath sounds Cardiovascular: regular rate and rhythm (no mrg) Gastrointestinal: normoactive bowel sounds, non-tender, non-distended, other (obese) Extremities: other (areas of ischemia, extremities) Neurologic: normal mental status, non-focal exam, pupils equal and round, CN II- XII normal Psychiatric: mood appropriate, affect normal CBC and BMP: 12/07/18 09:00 12/08/18 05:40 ABG, PT/INR, D-dimer: ABG POC ABG pH 7.413 (7.35-7.45) 12/01/18 10:39 ABG pH 7.414 pH Units (7.350-7.450) 11/28/18 01:01 POC ABG pCO2 30.6 (35-45) L 12/01/18 10:39 ABG pCO2 48.8 mm Hg 11/28/18 01:01 POC ABG pO2 95 (80-105) 12/01/18 10:39 ABG pO2 65.7 mm Hg (80.0-90.0) L 11/28/18 01:01 POC ABG HCO3 19.5 (22-26 mml/L) 12/01/18 10:39 POC ABG Total CO2 20 (23-27mmol/L) 12/01/18 10:39 POC ABG O2 Sat 98 12/01/18 10:39 ABG O2 Saturation 91.3 % (95.0-99.0) L 11/28/18 01:01 PT/INR, D-dimer PT 15.6 Sec. (12.2-14.9) H 11/28/18 01:01 INR 1.27 (0.87-1.13) H 11/28/18 01:01 Abnormal lab findings: Abnormal Labs 11/27/18 11/28/18 11/28/18 23:40 01:01 01:01 WBC 15.1 H RBC 6.19 H Hgb 17.4 H Hct 54.6 H RDW 19.6 H Lymph % (Auto) 6.3 L [place] % (Auto) Lymph # 0.9 L [place] # 0.9 H Seg Neutrophils % 87.2 H Seg Neuts % (Manual) Lymphocytes % (Manual) Nucleated RBC % Seg Neutrophils # 13.2 H Seg Neutrophils # Man Lymphocytes # (Manual) Monocytes # (Manual) PT 15.6 H INR 1.27 H APTT POC ABG pCO2 ABG pO2 ABG HCO3 ABG O2 Saturation ABG Base Excess ABG Hemoglobin Oxyhemoglobin Sodium Potassium Chloride Carbon Dioxide BUN Creatinine Glucose POC Glucose > 500 H Hemoglobin A1c Lactic Acid Calcium Phosphorus Magnesium Total Bilirubin Direct Bilirubin AST ALT Alkaline Phosphatase Lactate Dehydrogenase Total Creatine Kinase Troponin T C-Reactive Protein Total Protein Albumin Triglycerides Cholesterol HDL Cholesterol Urine Creatinine Urine Total Protein Salicylates Acetaminophen 11/28/18 11/28/18 11/28/18 01:01 01:01 01:01 WBC RBC Hgb Hct RDW Lymph % (Auto) [place] % (Auto) Lymph # [place] # Seg Neutrophils % Seg Neuts % (Manual) Lymphocytes % (Manual) Nucleated RBC % Seg Neutrophils # Seg Neutrophils # Man Lymphocytes # (Manual) Monocytes # (Manual) PT INR APTT POC ABG pCO2 ABG pO2 ABG HCO3 ABG O2 Saturation ABG Base Excess ABG Hemoglobin Oxyhemoglobin Sodium Potassium 5.9 H Chloride 92.9 L Carbon Dioxide BUN 20 H Creatinine 1.3 H Glucose 1088 H* POC Glucose Hemoglobin A1c Lactic Acid 3.50 H* Calcium Phosphorus Magnesium Total Bilirubin 2.40 H Direct Bilirubin 1.3 H AST ALT Alkaline Phosphatase 225 H Lactate Dehydrogenase Total Creatine Kinase Troponin T 0.030 H C-Reactive Protein Total Protein Albumin 3.8 L Triglycerides 356 H Cholesterol 200 H HDL Cholesterol 39 L Urine Creatinine Urine Total Protein Salicylates < 0.3 L Acetaminophen 11/28/18 11/28/18 11/28/18 01:01 01:01 01:01 WBC RBC Hgb Hct RDW Lymph % (Auto) [place] % (Auto) Lymph # [place] # Seg Neutrophils % Seg Neuts % (Manual) Lymphocytes % (Manual) Nucleated RBC % Seg Neutrophils # Seg Neutrophils # Man Lymphocytes # (Manual) Monocytes # (Manual) PT INR APTT POC ABG pCO2 ABG pO2 65.7 L ABG HCO3 30.5 H ABG O2 Saturation 91.3 L ABG Base Excess 4.6 H ABG Hemoglobin 18.0 H Oxyhemoglobin 88.0 L Sodium Potassium Chloride Carbon Dioxide BUN Creatinine Glucose POC Glucose Hemoglobin A1c Lactic Acid Calcium Phosphorus Magnesium 3.70 H Total Bilirubin Direct Bilirubin AST ALT Alkaline Phosphatase Lactate Dehydrogenase Total Creatine Kinase 228 H Troponin T C-Reactive Protein Total Protein Albumin Triglycerides Cholesterol HDL Cholesterol Urine Creatinine Urine Total Protein Salicylates Acetaminophen < 5.0 L 11/28/18 11/28/18 11/28/18 01:01 02:39 03:17 WBC RBC Hgb Hct RDW Lymph % (Auto) [place] % (Auto) Lymph # [place] # Seg Neutrophils % Seg Neuts % (Manual) Lymphocytes % (Manual) Nucleated RBC % Seg Neutrophils # Seg Neutrophils # Man Lymphocytes # (Manual) Monocytes # (Manual) PT INR APTT POC ABG pCO2 ABG pO2 ABG HCO3 ABG O2 Saturation ABG Base Excess ABG Hemoglobin Oxyhemoglobin Sodium Potassium Chloride Carbon Dioxide BUN Creatinine Glucose POC Glucose > 500 H Hemoglobin A1c 12.5 H Lactic Acid 3.00 H* Calcium Phosphorus Magnesium Total Bilirubin Direct Bilirubin AST ALT Alkaline Phosphatase Lactate Dehydrogenase Total Creatine Kinase Troponin T C-Reactive Protein Total Protein Albumin Triglycerides Cholesterol HDL Cholesterol Urine Creatinine Urine Total Protein Salicylates Acetaminophen 11/28/18 11/28/18 11/28/18 03:17 03:17 03:35 WBC RBC Hgb Hct RDW Lymph % (Auto) [place] % (Auto) Lymph # [place] # Seg Neutrophils % Seg Neuts % (Manual) Lymphocytes % (Manual) Nucleated RBC % Seg Neutrophils # Seg Neutrophils # Man Lymphocytes # (Manual) Monocytes # (Manual) PT INR APTT POC ABG pCO2 ABG pO2 ABG HCO3 ABG O2 Saturation ABG Base Excess ABG Hemoglobin Oxyhemoglobin Sodium Potassium 6.1 H* Chloride 97.6 L Carbon Dioxide BUN 20 H Creatinine Glucose 927 H* POC Glucose > 500 H Hemoglobin A1c Lactic Acid Calcium Phosphorus 4.70 H Magnesium 3.70 H Total Bilirubin Direct Bilirubin AST ALT Alkaline Phosphatase Lactate Dehydrogenase Total Creatine Kinase Troponin T C-Reactive Protein Total Protein Albumin Triglycerides Cholesterol HDL Cholesterol Urine Creatinine Urine Total Protein Salicylates Acetaminophen 11/28/18 11/28/18 11/28/18 04:43 05:35 06:30 WBC RBC Hgb Hct RDW Lymph % (Auto) [place] % (Auto) Lymph # [place] # Seg Neutrophils % Seg Neuts % (Manual) Lymphocytes % (Manual) Nucleated RBC % Seg Neutrophils # Seg Neutrophils # Man Lymphocytes # (Manual) Monocytes # (Manual) PT INR APTT POC ABG pCO2 ABG pO2 ABG HCO3 ABG O2 Saturation ABG Base Excess ABG Hemoglobin Oxyhemoglobin Sodium Potassium Chloride Carbon Dioxide BUN Creatinine Glucose POC Glucose > 500 H > 500 H > 500 H Hemoglobin A1c Lactic Acid Calcium Phosphorus Magnesium Total Bilirubin Direct Bilirubin AST ALT Alkaline Phosphatase Lactate Dehydrogenase Total Creatine Kinase Troponin T C-Reactive Protein Total Protein Albumin Triglycerides Cholesterol HDL Cholesterol Urine Creatinine Urine Total Protein Salicylates Acetaminophen 11/28/18 11/28/18 11/28/18 07:50 07:50 07:50 WBC RBC Hgb Hct RDW Lymph % (Auto) [place] % (Auto) Lymph # [place] # Seg Neutrophils % Seg Neuts % (Manual) Lymphocytes % (Manual) Nucleated RBC % Seg Neutrophils # Seg Neutrophils # Man Lymphocytes # (Manual) Monocytes # (Manual) PT INR APTT POC ABG pCO2 ABG pO2 ABG HCO3 ABG O2 Saturation ABG Base Excess ABG Hemoglobin Oxyhemoglobin Sodium 156 H D Potassium 3.3 L D Chloride 112.8 H Carbon Dioxide BUN Creatinine Glucose 409 H POC Glucose Hemoglobin A1c Lactic Acid 6.20 H* Calcium Phosphorus Magnesium Total Bilirubin Direct Bilirubin AST ALT Alkaline Phosphatase Lactate Dehydrogenase Total Creatine Kinase Troponin T 0.030 H D C-Reactive Protein Total Protein Albumin Triglycerides Cholesterol HDL Cholesterol Urine Creatinine Urine Total Protein Salicylates Acetaminophen 11/28/18 11/28/18 11/28/18 10:33 12:52 14:11 WBC RBC Hgb Hct RDW Lymph % (Auto) [place] % (Auto) Lymph # [place] # Seg Neutrophils % Seg Neuts % (Manual) Lymphocytes % (Manual) Nucleated RBC % Seg Neutrophils # Seg Neutrophils # Man Lymphocytes # (Manual) Monocytes # (Manual) PT INR APTT POC ABG pCO2 ABG pO2 ABG HCO3 ABG O2 Saturation ABG Base Excess ABG Hemoglobin Oxyhemoglobin Sodium Potassium Chloride Carbon Dioxide BUN Creatinine Glucose POC Glucose 411 H 204 H 119 H Hemoglobin A1c Lactic Acid Calcium Phosphorus Magnesium Total Bilirubin Direct Bilirubin AST ALT Alkaline Phosphatase Lactate Dehydrogenase Total Creatine Kinase Troponin T C-Reactive Protein Total Protein Albumin Triglycerides Cholesterol HDL Cholesterol Urine Creatinine Urine Total Protein Salicylates Acetaminophen 11/28/18 11/28/18 11/28/18 14:15 15:14 15:14 WBC RBC Hgb Hct RDW Lymph % (Auto) [place] % (Auto) Lymph # [place] # Seg Neutrophils % Seg Neuts % (Manual) Lymphocytes % (Manual) Nucleated RBC % Seg Neutrophils # Seg Neutrophils # Man Lymphocytes # (Manual) Monocytes # (Manual) PT INR APTT POC ABG pCO2 ABG pO2 ABG HCO3 ABG O2 Saturation ABG Base Excess ABG Hemoglobin Oxyhemoglobin Sodium 151 H Potassium Chloride 112.4 H Carbon Dioxide 21 L D BUN Creatinine Glucose 167 H POC Glucose Hemoglobin A1c Lactic Acid 4.80 H* 5.00 H* Calcium Phosphorus Magnesium Total Bilirubin Direct Bilirubin AST ALT Alkaline Phosphatase Lactate Dehydrogenase Total Creatine Kinase Troponin T C-Reactive Protein Total Protein Albumin Triglycerides Cholesterol HDL Cholesterol Urine Creatinine Urine Total Protein Salicylates Acetaminophen 11/28/18 11/28/18 11/28/18 15:22 16:22 17:11 WBC RBC Hgb Hct RDW Lymph % (Auto) [place] % (Auto) Lymph # [place] # Seg Neutrophils % Seg Neuts % (Manual) Lymphocytes % (Manual) Nucleated RBC % Seg Neutrophils # Seg Neutrophils # Man Lymphocytes # (Manual) Monocytes # (Manual) PT INR APTT POC ABG pCO2 ABG pO2 ABG HCO3 ABG O2 Saturation ABG Base Excess ABG Hemoglobin Oxyhemoglobin Sodium Potassium Chloride Carbon Dioxide BUN Creatinine Glucose POC Glucose 114 H 120 H 183 H Hemoglobin A1c Lactic Acid Calcium Phosphorus Magnesium Total Bilirubin Direct Bilirubin AST ALT Alkaline Phosphatase Lactate Dehydrogenase Total Creatine Kinase Troponin T C-Reactive Protein Total Protein Albumin Triglycerides Cholesterol HDL Cholesterol Urine Creatinine Urine Total Protein Salicylates Acetaminophen 11/28/18 11/28/18 11/28/18 17:17 18:18 19:26 WBC RBC Hgb Hct RDW Lymph % (Auto) [place] % (Auto) Lymph # [place] # Seg Neutrophils % Seg Neuts % (Manual) Lymphocytes % (Manual) Nucleated RBC % Seg Neutrophils # Seg Neutrophils # Man Lymphocytes # (Manual) Monocytes # (Manual) PT INR APTT POC ABG pCO2 ABG pO2 ABG HCO3 ABG O2 Saturation ABG Base Excess ABG Hemoglobin Oxyhemoglobin Sodium 151 H Potassium Chloride 112.9 H Carbon Dioxide 21 L BUN Creatinine Glucose 265 H POC Glucose 269 H 243 H Hemoglobin A1c Lactic Acid Calcium Phosphorus Magnesium Total Bilirubin Direct Bilirubin AST ALT Alkaline Phosphatase Lactate Dehydrogenase Total Creatine Kinase Troponin T C-Reactive Protein Total Protein Albumin Triglycerides Cholesterol HDL Cholesterol Urine Creatinine Urine Total Protein Salicylates Acetaminophen 11/28/18 11/28/18 11/29/18 20:45 21:44 05:55 WBC 29.7 H RBC 5.93 H Hgb 16.6 H Hct 51.0 H RDW 19.7 H Lymph % (Auto) [place] % (Auto) Lymph # [place] # Seg Neutrophils % Seg Neuts % (Manual) 93.0 H Lymphocytes % (Manual) 4.0 L Nucleated RBC % Seg Neutrophils # Seg Neutrophils # Man 27.6 H Lymphocytes # (Manual) Monocytes # (Manual) 0.9 H PT INR APTT POC ABG pCO2 ABG pO2 ABG HCO3 ABG O2 Saturation ABG Base Excess ABG Hemoglobin Oxyhemoglobin Sodium Potassium Chloride Carbon Dioxide BUN Creatinine Glucose POC Glucose 177 H 124 H Hemoglobin A1c Lactic Acid Calcium Phosphorus Magnesium Total Bilirubin Direct Bilirubin AST ALT Alkaline Phosphatase Lactate Dehydrogenase Total Creatine Kinase Troponin T C-Reactive Protein Total Protein Albumin Triglycerides Cholesterol HDL Cholesterol Urine Creatinine Urine Total Protein Salicylates Acetaminophen 11/29/18 11/29/18 11/29/18 06:42 07:36 09:08 WBC RBC Hgb Hct RDW Lymph % (Auto) [place] % (Auto) Lymph # [place] # Seg Neutrophils % Seg Neuts % (Manual) Lymphocytes % (Manual) Nucleated RBC % Seg Neutrophils # Seg Neutrophils # Man Lymphocytes # (Manual) Monocytes # (Manual) PT INR APTT POC ABG pCO2 ABG pO2 ABG HCO3 ABG O2 Saturation ABG Base Excess ABG Hemoglobin Oxyhemoglobin Sodium 152 H Potassium 5.4 H Chloride 110.6 H Carbon Dioxide 20 L BUN 20 H Creatinine 1.6 H Glucose 237 H POC Glucose 118 H 146 H Hemoglobin A1c Lactic Acid Calcium Phosphorus Magnesium Total Bilirubin 3.80 H Direct Bilirubin AST 351 H ALT 123 H Alkaline Phosphatase 222 H Lactate Dehydrogenase Total Creatine Kinase Troponin T C-Reactive Protein Total Protein Albumin 3.5 L Triglycerides Cholesterol HDL Cholesterol Urine Creatinine Urine Total Protein Salicylates Acetaminophen 11/29/18 11/29/18 11/29/18 11:00 11:44 13:40 WBC RBC Hgb Hct RDW Lymph % (Auto) [place] % (Auto) Lymph # [place] # Seg Neutrophils % Seg Neuts % (Manual) Lymphocytes % (Manual) Nucleated RBC % Seg Neutrophils # Seg Neutrophils # Man Lymphocytes # (Manual) Monocytes # (Manual) PT INR APTT POC ABG pCO2 ABG pO2 ABG HCO3 ABG O2 Saturation ABG Base Excess ABG Hemoglobin Oxyhemoglobin Sodium 155 H Potassium 5.8 H Chloride 110.1 H Carbon Dioxide 15 L BUN 21 H Creatinine 1.4 H Glucose 204 H POC Glucose 203 H Hemoglobin A1c Lactic Acid Calcium Phosphorus Magnesium Total Bilirubin 3.70 H Direct Bilirubin AST 361 H ALT 125 H Alkaline Phosphatase 227 H Lactate Dehydrogenase Total Creatine Kinase Troponin T C-Reactive Protein Total Protein Albumin 3.4 L Triglycerides Cholesterol HDL Cholesterol Urine Creatinine 117.4 H Urine Total Protein 120 H Salicylates Acetaminophen 11/29/18 11/29/18 11/29/18 16:29 16:46 16:46 WBC RBC Hgb Hct RDW Lymph % (Auto) [place] % (Auto) Lymph # [place] # Seg Neutrophils % Seg Neuts % (Manual) Lymphocytes % (Manual) Nucleated RBC % Seg Neutrophils # Seg Neutrophils # Man Lymphocytes # (Manual) Monocytes # (Manual) PT INR APTT 49.5 H POC ABG pCO2 ABG pO2 ABG HCO3 ABG O2 Saturation ABG Base Excess ABG Hemoglobin Oxyhemoglobin Sodium 148 H Potassium Chloride 108.3 H Carbon Dioxide 21 L BUN 22 H Creatinine 1.4 H Glucose 152 H POC Glucose 158 H Hemoglobin A1c Lactic Acid Calcium Phosphorus Magnesium Total Bilirubin Direct Bilirubin AST ALT Alkaline Phosphatase Lactate Dehydrogenase Total Creatine Kinase Troponin T C-Reactive Protein Total Protein Albumin Triglycerides Cholesterol HDL Cholesterol Urine Creatinine Urine Total Protein Salicylates Acetaminophen 11/29/18 11/29/18 11/30/18 22:02 23:58 05:51 WBC RBC Hgb Hct RDW Lymph % (Auto) [place] % (Auto) Lymph # [place] # Seg Neutrophils % Seg Neuts % (Manual) Lymphocytes % (Manual) Nucleated RBC % Seg Neutrophils # Seg Neutrophils # Man Lymphocytes # (Manual) Monocytes # (Manual) PT INR APTT 63.2 H* POC ABG pCO2 ABG pO2 ABG HCO3 ABG O2 Saturation ABG Base Excess ABG Hemoglobin Oxyhemoglobin Sodium Potassium Chloride Carbon Dioxide BUN Creatinine Glucose POC Glucose 183 H 156 H Hemoglobin A1c Lactic Acid Calcium Phosphorus Magnesium Total Bilirubin Direct Bilirubin AST ALT Alkaline Phosphatase Lactate Dehydrogenase Total Creatine Kinase Troponin T C-Reactive Protein Total Protein Albumin Triglycerides Cholesterol HDL Cholesterol Urine Creatinine Urine Total Protein Salicylates Acetaminophen 11/30/18 11/30/18 11/30/18 07:18 07:58 09:40 WBC 28.8 H RBC 6.58 H Hgb 18.2 H Hct 57.2 H* D RDW 19.3 H Lymph % (Auto) [place] % (Auto) Lymph # [place] # Seg Neutrophils % Seg Neuts % (Manual) Lymphocytes % (Manual) Nucleated RBC % Seg Neutrophils # Seg Neutrophils # Man Lymphocytes # (Manual) Monocytes # (Manual) PT INR APTT POC ABG pCO2 ABG pO2 ABG HCO3 ABG O2 Saturation ABG Base Excess ABG Hemoglobin Oxyhemoglobin Sodium 150 H Potassium Chloride 110.3 H Carbon Dioxide 20 L BUN Creatinine Glucose 149 H POC Glucose 190 H Hemoglobin A1c Lactic Acid Calcium Phosphorus Magnesium 3.20 H Total Bilirubin 3.70 H Direct Bilirubin AST 480 H ALT 213 H Alkaline Phosphatase 258 H Lactate Dehydrogenase Total Creatine Kinase Troponin T C-Reactive Protein Total Protein Albumin 3.4 L Triglycerides Cholesterol HDL Cholesterol Urine Creatinine Urine Total Protein Salicylates Acetaminophen 11/30/18 11/30/18 11/30/18 11:24 12:17 16:22 WBC RBC Hgb Hct RDW Lymph % (Auto) [place] % (Auto) Lymph # [place] # Seg Neutrophils % Seg Neuts % (Manual) Lymphocytes % (Manual) Nucleated RBC % Seg Neutrophils # Seg Neutrophils # Man Lymphocytes # (Manual) Monocytes # (Manual) PT INR APTT 62.1 H* POC ABG pCO2 ABG pO2 ABG HCO3 ABG O2 Saturation ABG Base Excess ABG Hemoglobin Oxyhemoglobin Sodium Potassium Chloride Carbon Dioxide BUN Creatinine Glucose POC Glucose 242 H 165 H Hemoglobin A1c Lactic Acid Calcium Phosphorus Magnesium Total Bilirubin Direct Bilirubin AST ALT Alkaline Phosphatase Lactate Dehydrogenase Total Creatine Kinase Troponin T C-Reactive Protein Total Protein Albumin Triglycerides Cholesterol HDL Cholesterol Urine Creatinine Urine Total Protein Salicylates Acetaminophen 11/30/18 12/01/18 12/01/18 21:32 05:32 05:32 WBC 24.7 H RBC 6.30 H Hgb 17.8 H Hct 54.2 H RDW 19.2 H Lymph % (Auto) [place] % (Auto) Lymph # [place] # Seg Neutrophils % Seg Neuts % (Manual) 87.0 H Lymphocytes % (Manual) 10.0 L Nucleated RBC % 2.0 H Seg Neutrophils # Seg Neutrophils # Man 21.5 H Lymphocytes # (Manual) Monocytes # (Manual) PT INR APTT 50.0 H POC ABG pCO2 ABG pO2 ABG HCO3 ABG O2 Saturation ABG Base Excess ABG Hemoglobin Oxyhemoglobin Sodium Potassium Chloride Carbon Dioxide BUN Creatinine Glucose POC Glucose 146 H Hemoglobin A1c Lactic Acid Calcium Phosphorus Magnesium Total Bilirubin Direct Bilirubin AST ALT Alkaline Phosphatase Lactate Dehydrogenase Total Creatine Kinase Troponin T C-Reactive Protein Total Protein Albumin Triglycerides Cholesterol HDL Cholesterol Urine Creatinine Urine Total Protein Salicylates Acetaminophen 12/01/18 12/01/18 12/01/18 07:45 10:39 11:35 WBC RBC Hgb Hct RDW Lymph % (Auto) [place] % (Auto) Lymph # [place] # Seg Neutrophils % Seg Neuts % (Manual) Lymphocytes % (Manual) Nucleated RBC % Seg Neutrophils # Seg Neutrophils # Man Lymphocytes # (Manual) Monocytes # (Manual) PT INR APTT POC ABG pCO2 30.6 L ABG pO2 ABG HCO3 ABG O2 Saturation ABG Base Excess ABG Hemoglobin Oxyhemoglobin Sodium Potassium Chloride Carbon Dioxide BUN Creatinine Glucose POC Glucose 179 H 219 H Hemoglobin A1c Lactic Acid Calcium Phosphorus Magnesium Total Bilirubin Direct Bilirubin AST ALT Alkaline Phosphatase Lactate Dehydrogenase Total Creatine Kinase Troponin T C-Reactive Protein Total Protein Albumin Triglycerides Cholesterol HDL Cholesterol Urine Creatinine Urine Total Protein Salicylates Acetaminophen 12/01/18 12/01/18 12/01/18 13:45 13:45 16:33 WBC RBC Hgb Hct RDW Lymph % (Auto) [place] % (Auto) Lymph # [place] # Seg Neutrophils % Seg Neuts % (Manual) Lymphocytes % (Manual) Nucleated RBC % Seg Neutrophils # Seg Neutrophils # Man Lymphocytes # (Manual) Monocytes # (Manual) PT INR APTT POC ABG pCO2 ABG pO2 ABG HCO3 ABG O2 Saturation ABG Base Excess ABG Hemoglobin Oxyhemoglobin Sodium 136 L D Potassium Chloride Carbon Dioxide BUN 29 H Creatinine 1.9 H D Glucose 360 H POC Glucose 166 H Hemoglobin A1c Lactic Acid Calcium 8.0 L Phosphorus Magnesium Total Bilirubin Direct Bilirubin AST ALT Alkaline Phosphatase Lactate Dehydrogenase 976 H Total Creatine Kinase Troponin T C-Reactive Protein Total Protein Albumin Triglycerides Cholesterol HDL Cholesterol Urine Creatinine Urine Total Protein Salicylates Acetaminophen 12/01/18 12/01/18 12/02/18 17:40 20:04 04:45 WBC RBC Hgb Hct RDW Lymph % (Auto) [place] % (Auto) Lymph # [place] # Seg Neutrophils % Seg Neuts % (Manual) Lymphocytes % (Manual) Nucleated RBC % Seg Neutrophils # Seg Neutrophils # Man Lymphocytes # (Manual) Monocytes # (Manual) PT INR APTT 68.9 H* POC ABG pCO2 ABG pO2 ABG HCO3 ABG O2 Saturation ABG Base Excess ABG Hemoglobin Oxyhemoglobin Sodium 135 L Potassium Chloride 96.8 L Carbon Dioxide BUN 33 H Creatinine 2.0 H Glucose 302 H POC Glucose 215 H Hemoglobin A1c Lactic Acid Calcium 8.0 L Phosphorus Magnesium Total Bilirubin 2.00 H Direct Bilirubin AST 156 H ALT 183 H Alkaline Phosphatase 225 H Lactate Dehydrogenase Total Creatine Kinase Troponin T C-Reactive Protein Total Protein 5.9 L D Albumin 2.6 L Triglycerides Cholesterol HDL Cholesterol Urine Creatinine Urine Total Protein Salicylates Acetaminophen 12/02/18 12/02/18 12/02/18 04:45 05:45 07:00 WBC 23.8 H RBC 6.28 H Hgb 17.5 H Hct 53.9 H RDW 19.3 H Lymph % (Auto) [place] % (Auto) Lymph # [place] # Seg Neutrophils % Seg Neuts % (Manual) 83.0 H Lymphocytes % (Manual) 12.0 L Nucleated RBC % Seg Neutrophils # Seg Neutrophils # Man 19.8 H Lymphocytes # (Manual) Monocytes # (Manual) 1.2 H PT INR APTT 51.5 H POC ABG pCO2 ABG pO2 ABG HCO3 ABG O2 Saturation ABG Base Excess ABG Hemoglobin Oxyhemoglobin Sodium Potassium Chloride Carbon Dioxide BUN Creatinine Glucose POC Glucose 336 H Hemoglobin A1c Lactic Acid Calcium Phosphorus Magnesium Total Bilirubin Direct Bilirubin AST ALT Alkaline Phosphatase Lactate Dehydrogenase Total Creatine Kinase Troponin T C-Reactive Protein Total Protein Albumin Triglycerides Cholesterol HDL Cholesterol Urine Creatinine Urine Total Protein Salicylates Acetaminophen 12/02/18 12/02/18 12/02/18 07:30 11:07 16:24 WBC RBC Hgb Hct RDW Lymph % (Auto) [place] % (Auto) Lymph # [place] # Seg Neutrophils % Seg Neuts % (Manual) Lymphocytes % (Manual) Nucleated RBC % Seg Neutrophils # Seg Neutrophils # Man Lymphocytes # (Manual) Monocytes # (Manual) PT INR APTT POC ABG pCO2 ABG pO2 ABG HCO3 ABG O2 Saturation ABG Base Excess ABG Hemoglobin Oxyhemoglobin Sodium Potassium Chloride Carbon Dioxide BUN Creatinine Glucose POC Glucose 143 H 249 H 250 H Hemoglobin A1c Lactic Acid Calcium Phosphorus Magnesium Total Bilirubin Direct Bilirubin AST ALT Alkaline Phosphatase Lactate Dehydrogenase Total Creatine Kinase Troponin T C-Reactive Protein Total Protein Albumin Triglycerides Cholesterol HDL Cholesterol Urine Creatinine Urine Total Protein Salicylates Acetaminophen 12/02/18 12/02/18 12/03/18 19:20 21:44 04:15 WBC 20.8 H RBC 5.79 H Hgb 16.2 H Hct 49.1 H RDW 19.2 H Lymph % (Auto) [place] % (Auto) Lymph # [place] # Seg Neutrophils % Seg Neuts % (Manual) 90.0 H Lymphocytes % (Manual) 4.0 L Nucleated RBC % 6.0 H Seg Neutrophils # Seg Neutrophils # Man 18.7 H Lymphocytes # (Manual) 0.8 L Monocytes # (Manual) 1.2 H PT INR APTT 43.4 H POC ABG pCO2 ABG pO2 ABG HCO3 ABG O2 Saturation ABG Base Excess ABG Hemoglobin Oxyhemoglobin Sodium Potassium Chloride Carbon Dioxide BUN Creatinine Glucose POC Glucose 315 H Hemoglobin A1c Lactic Acid Calcium Phosphorus Magnesium Total Bilirubin Direct Bilirubin AST ALT Alkaline Phosphatase Lactate Dehydrogenase Total Creatine Kinase Troponin T C-Reactive Protein Total Protein Albumin Triglycerides Cholesterol HDL Cholesterol Urine Creatinine Urine Total Protein Salicylates Acetaminophen 12/03/18 12/03/18 12/03/18 04:15 07:35 07:48 WBC RBC Hgb Hct RDW Lymph % (Auto) [place] % (Auto) Lymph # [place] # Seg Neutrophils % Seg Neuts % (Manual) Lymphocytes % (Manual) Nucleated RBC % Seg Neutrophils # Seg Neutrophils # Man Lymphocytes # (Manual) Monocytes # (Manual) PT INR APTT 53.6 H POC ABG pCO2 ABG pO2 ABG HCO3 ABG O2 Saturation ABG Base Excess ABG Hemoglobin Oxyhemoglobin Sodium Potassium Chloride Carbon Dioxide BUN 35 H Creatinine 1.9 H Glucose 231 H POC Glucose 179 H Hemoglobin A1c Lactic Acid Calcium 8.1 L Phosphorus Magnesium Total Bilirubin Direct Bilirubin AST ALT Alkaline Phosphatase Lactate Dehydrogenase Total Creatine Kinase Troponin T C-Reactive Protein Total Protein Albumin Triglycerides Cholesterol HDL Cholesterol Urine Creatinine Urine Total Protein Salicylates Acetaminophen 12/03/18 12/03/18 12/03/18 08:01 11:23 14:33 WBC RBC Hgb Hct RDW Lymph % (Auto) [place] % (Auto) Lymph # [place] # Seg Neutrophils % Seg Neuts % (Manual) Lymphocytes % (Manual) Nucleated RBC % Seg Neutrophils # Seg Neutrophils # Man Lymphocytes # (Manual) Monocytes # (Manual) PT INR APTT POC ABG pCO2 ABG pO2 ABG HCO3 ABG O2 Saturation ABG Base Excess ABG Hemoglobin Oxyhemoglobin Sodium Potassium Chloride Carbon Dioxide BUN Creatinine Glucose POC Glucose 204 H 153 H Hemoglobin A1c Lactic Acid Calcium Phosphorus Magnesium Total Bilirubin Direct Bilirubin AST ALT Alkaline Phosphatase Lactate Dehydrogenase Total Creatine Kinase Troponin T C-Reactive Protein 7.70 H Total Protein Albumin Triglycerides Cholesterol HDL Cholesterol Urine Creatinine Urine Total Protein Salicylates Acetaminophen 12/03/18 12/04/18 12/04/18 16:23 05:21 06:00 WBC 18.1 H RBC 5.73 H Hgb 16.0 H Hct 49.0 H RDW 19.5 H Lymph % (Auto) 1.3 L [place] % (Auto) 10.5 H Lymph # 0.2 L [place] # 1.9 H Seg Neutrophils % 87.9 H Seg Neuts % (Manual) Lymphocytes % (Manual) Nucleated RBC % Seg Neutrophils # 15.9 H Seg Neutrophils # Man Lymphocytes # (Manual) Monocytes # (Manual) PT INR APTT POC ABG pCO2 ABG pO2 ABG HCO3 ABG O2 Saturation ABG Base Excess ABG Hemoglobin Oxyhemoglobin Sodium Potassium Chloride Carbon Dioxide BUN Creatinine Glucose POC Glucose 180 H 297 H Hemoglobin A1c Lactic Acid Calcium Phosphorus Magnesium Total Bilirubin Direct Bilirubin AST ALT Alkaline Phosphatase Lactate Dehydrogenase Total Creatine Kinase Troponin T C-Reactive Protein Total Protein Albumin Triglycerides Cholesterol HDL Cholesterol Urine Creatinine Urine Total Protein Salicylates Acetaminophen 12/04/18 12/04/18 12/04/18 06:00 06:00 07:57 WBC RBC Hgb Hct RDW Lymph % (Auto) [place] % (Auto) Lymph # [place] # Seg Neutrophils % Seg Neuts % (Manual) Lymphocytes % (Manual) Nucleated RBC % Seg Neutrophils # Seg Neutrophils # Man Lymphocytes # (Manual) Monocytes # (Manual) PT INR APTT 51.3 H POC ABG pCO2 ABG pO2 ABG HCO3 ABG O2 Saturation ABG Base Excess ABG Hemoglobin Oxyhemoglobin Sodium Potassium Chloride Carbon Dioxide BUN 22 H Creatinine 1.5 H Glucose 352 H POC Glucose 315 H Hemoglobin A1c Lactic Acid Calcium Phosphorus Magnesium Total Bilirubin Direct Bilirubin AST ALT Alkaline Phosphatase Lactate Dehydrogenase Total Creatine Kinase Troponin T C-Reactive Protein Total Protein Albumin Triglycerides Cholesterol HDL Cholesterol Urine Creatinine Urine Total Protein Salicylates Acetaminophen 12/04/18 12/04/18 12/04/18 11:56 16:06 21:46 WBC RBC Hgb Hct RDW Lymph % (Auto) [place] % (Auto) Lymph # [place] # Seg Neutrophils % Seg Neuts % (Manual) Lymphocytes % (Manual) Nucleated RBC % Seg Neutrophils # Seg Neutrophils # Man Lymphocytes # (Manual) Monocytes # (Manual) PT INR APTT POC ABG pCO2 ABG pO2 ABG HCO3 ABG O2 Saturation ABG Base Excess ABG Hemoglobin Oxyhemoglobin Sodium Potassium Chloride Carbon Dioxide BUN Creatinine Glucose POC Glucose 303 H 347 H 345 H Hemoglobin A1c Lactic Acid Calcium Phosphorus Magnesium Total Bilirubin Direct Bilirubin AST ALT Alkaline Phosphatase Lactate Dehydrogenase Total Creatine Kinase Troponin T C-Reactive Protein Total Protein Albumin Triglycerides Cholesterol HDL Cholesterol Urine Creatinine Urine Total Protein Salicylates Acetaminophen 12/05/18 12/05/18 12/05/18 06:10 06:51 07:54 WBC 18.8 H RBC 5.42 H Hgb 15.5 H Hct 46.1 H RDW 19.1 H Lymph % (Auto) 2.6 L [place] % (Auto) 14.8 H Lymph # 0.5 L [place] # 2.8 H Seg Neutrophils % 82.2 H Seg Neuts % (Manual) Lymphocytes % (Manual) Nucleated RBC % Seg Neutrophils # 15.5 H Seg Neutrophils # Man Lymphocytes # (Manual) Monocytes # (Manual) PT INR APTT 52.9 H POC ABG pCO2 ABG pO2 ABG HCO3 ABG O2 Saturation ABG Base Excess ABG Hemoglobin Oxyhemoglobin Sodium Potassium Chloride Carbon Dioxide BUN Creatinine Glucose POC Glucose 258 H Hemoglobin A1c Lactic Acid Calcium Phosphorus Magnesium Total Bilirubin Direct Bilirubin AST ALT Alkaline Phosphatase Lactate Dehydrogenase Total Creatine Kinase Troponin T C-Reactive Protein Total Protein Albumin Triglycerides Cholesterol HDL Cholesterol Urine Creatinine Urine Total Protein Salicylates Acetaminophen 12/05/18 12/05/18 12/05/18 11:26 16:17 22:12 WBC RBC Hgb Hct RDW Lymph % (Auto) [place] % (Auto) Lymph # [place] # Seg Neutrophils % Seg Neuts % (Manual) Lymphocytes % (Manual) Nucleated RBC % Seg Neutrophils # Seg Neutrophils # Man Lymphocytes # (Manual) Monocytes # (Manual) PT INR APTT POC ABG pCO2 ABG pO2 ABG HCO3 ABG O2 Saturation ABG Base Excess ABG Hemoglobin Oxyhemoglobin Sodium Potassium Chloride Carbon Dioxide BUN Creatinine Glucose POC Glucose 246 H 310 H 386 H Hemoglobin A1c Lactic Acid Calcium Phosphorus Magnesium Total Bilirubin Direct Bilirubin AST ALT Alkaline Phosphatase Lactate Dehydrogenase Total Creatine Kinase Troponin T C-Reactive Protein Total Protein Albumin Triglycerides Cholesterol HDL Cholesterol Urine Creatinine Urine Total Protein Salicylates Acetaminophen 12/05/18 12/06/18 12/06/18 Unknown 06:13 06:13 WBC 16.7 H RBC 5.12 H Hgb Hct 43.6 H RDW 19.2 H Lymph % (Auto) [place] % (Auto) Lymph # [place] # Seg Neutrophils % Seg Neuts % (Manual) 89.0 H Lymphocytes % (Manual) 5.0 L Nucleated RBC % Seg Neutrophils # Seg Neutrophils # Man 14.9 H Lymphocytes # (Manual) 0.8 L Monocytes # (Manual) 1.0 H PT INR APTT POC ABG pCO2 ABG pO2 ABG HCO3 ABG O2 Saturation ABG Base Excess ABG Hemoglobin Oxyhemoglobin Sodium Potassium Chloride 110.9 H Carbon Dioxide BUN 18 H 19 H Creatinine Glucose 261 H 242 H POC Glucose Hemoglobin A1c Lactic Acid Calcium 6.7 L D Phosphorus Magnesium Total Bilirubin Direct Bilirubin AST ALT Alkaline Phosphatase Lactate Dehydrogenase Total Creatine Kinase Troponin T C-Reactive Protein Total Protein Albumin Triglycerides Cholesterol HDL Cholesterol Urine Creatinine Urine Total Protein Salicylates Acetaminophen 12/06/18 12/06/18 12/06/18 09:45 11:59 16:24 WBC RBC Hgb Hct RDW Lymph % (Auto) [place] % (Auto) Lymph # [place] # Seg Neutrophils % Seg Neuts % (Manual) Lymphocytes % (Manual) Nucleated RBC % Seg Neutrophils # Seg Neutrophils # Man Lymphocytes # (Manual) Monocytes # (Manual) PT INR APTT 51.1 H POC ABG pCO2 ABG pO2 ABG HCO3 ABG O2 Saturation ABG Base Excess ABG Hemoglobin Oxyhemoglobin Sodium Potassium Chloride Carbon Dioxide BUN Creatinine Glucose POC Glucose 277 H 264 H Hemoglobin A1c Lactic Acid Calcium Phosphorus Magnesium Total Bilirubin Direct Bilirubin AST ALT Alkaline Phosphatase Lactate Dehydrogenase Total Creatine Kinase Troponin T C-Reactive Protein Total Protein Albumin Triglycerides Cholesterol HDL Cholesterol Urine Creatinine Urine Total Protein Salicylates Acetaminophen 12/06/18 12/06/18 12/07/18 17:09 22:04 07:40 WBC RBC Hgb Hct RDW Lymph % (Auto) [place] % (Auto) Lymph # [place] # Seg Neutrophils % Seg Neuts % (Manual) Lymphocytes % (Manual) Nucleated RBC % Seg Neutrophils # Seg Neutrophils # Man Lymphocytes # (Manual) Monocytes # (Manual) PT INR APTT POC ABG pCO2 ABG pO2 ABG HCO3 ABG O2 Saturation ABG Base Excess ABG Hemoglobin Oxyhemoglobin Sodium Potassium Chloride Carbon Dioxide BUN Creatinine Glucose POC Glucose 276 H 438 H 319 H Hemoglobin A1c Lactic Acid Calcium Phosphorus Magnesium Total Bilirubin Direct Bilirubin AST ALT Alkaline Phosphatase Lactate Dehydrogenase Total Creatine Kinase Troponin T C-Reactive Protein Total Protein Albumin Triglycerides Cholesterol HDL Cholesterol Urine Creatinine Urine Total Protein Salicylates Acetaminophen 12/07/18 12/07/18 12/07/18 09:00 09:00 09:00 WBC 17.6 H RBC 5.56 H Hgb 15.7 H Hct 46.9 H RDW 19.1 H Lymph % (Auto) [place] % (Auto) Lymph # [place] # Seg Neutrophils % Seg Neuts % (Manual) 89.0 H Lymphocytes % (Manual) 4.0 L Nucleated RBC % Seg Neutrophils # Seg Neutrophils # Man 15.7 H Lymphocytes # (Manual) 0.7 L Monocytes # (Manual) 1.1 H PT INR APTT 41.6 H POC ABG pCO2 ABG pO2 ABG HCO3 ABG O2 Saturation ABG Base Excess ABG Hemoglobin Oxyhemoglobin Sodium 136 L Potassium 5.1 H D Chloride Carbon Dioxide BUN 24 H Creatinine Glucose 351 H POC Glucose Hemoglobin A1c Lactic Acid Calcium Phosphorus Magnesium Total Bilirubin Direct Bilirubin AST ALT Alkaline Phosphatase Lactate Dehydrogenase Total Creatine Kinase Troponin T C-Reactive Protein Total Protein Albumin Triglycerides Cholesterol HDL Cholesterol Urine Creatinine Urine Total Protein Salicylates Acetaminophen 12/07/18 12/07/18 12/07/18 11:11 16:23 22:16 WBC RBC Hgb Hct RDW Lymph % (Auto) [place] % (Auto) Lymph # [place] # Seg Neutrophils % Seg Neuts % (Manual) Lymphocytes % (Manual) Nucleated RBC % Seg Neutrophils # Seg Neutrophils # Man Lymphocytes # (Manual) Monocytes # (Manual) PT INR APTT POC ABG pCO2 ABG pO2 ABG HCO3 ABG O2 Saturation ABG Base Excess ABG Hemoglobin Oxyhemoglobin Sodium Potassium Chloride Carbon Dioxide BUN Creatinine Glucose POC Glucose 319 H 334 H 283 H Hemoglobin A1c Lactic Acid Calcium Phosphorus Magnesium Total Bilirubin Direct Bilirubin AST ALT Alkaline Phosphatase Lactate Dehydrogenase Total Creatine Kinase Troponin T C-Reactive Protein Total Protein Albumin Triglycerides Cholesterol HDL Cholesterol Urine Creatinine Urine Total Protein Salicylates Acetaminophen 12/08/18 12/08/18 12/08/18 05:40 08:08 12:10 WBC RBC Hgb Hct RDW Lymph % (Auto) [place] % (Auto) Lymph # [place] # Seg Neutrophils % Seg Neuts % (Manual) Lymphocytes % (Manual) Nucleated RBC % Seg Neutrophils # Seg Neutrophils # Man Lymphocytes # (Manual) Monocytes # (Manual) PT INR APTT POC ABG pCO2 ABG pO2 ABG HCO3 ABG O2 Saturation ABG Base Excess ABG Hemoglobin Oxyhemoglobin Sodium 135 L Potassium Chloride 95.4 L Carbon Dioxide BUN 21 H Creatinine Glucose 173 H POC Glucose 182 H 151 H Hemoglobin A1c Lactic Acid Calcium Phosphorus Magnesium Total Bilirubin Direct Bilirubin AST ALT Alkaline Phosphatase Lactate Dehydrogenase Total Creatine Kinase Troponin T C-Reactive Protein Total Protein Albumin Triglycerides Cholesterol HDL Cholesterol Urine Creatinine Urine Total Protein Salicylates Acetaminophen
[2018-12-08] MEDS: SINGULAIR PO SCH (17:17)
[2018-12-08 20:53] LABS: Myeloperoxidase Antibody <1.0 AI (<1.0)
[2018-12-08] MEDS: ELAVIL PO SCH (22:26)
--- NOTE | 2018-12-08 23:18 | Event Note ---
Date: 12/08/18 Heparin gtt turned off by nurse. Pt had blood in stool and blood tinged mucus from nose. Advised RN to call vascular to notify them that heparin gtt is off.
[2018-12-09] MEDS: LOPRESSOR PO SCH ×3 (06:20→21:25)
[2018-12-09] MEDS: NITRO-BID 2% TP SCH ×3 (06:21→14:38)
[2018-12-09 06:29] LABS: Hematocrit 43.4 % (30.3-42.9); Hemoglobin 14.5 gm/dl (10.1-14.3)
[2018-12-09 06:40] LABS: INR 1.05 (0.87-1.13)
[2018-12-09 06:58] LABS: Alanine Aminotransferase 60 units/L (7-56); Albumin 2.5 g/dL (3.9-5); BUN/Creatinine Ratio 21; Blood Urea Nitrogen 21 mg/dL (7-17); Calcium 8.8 mg/dL (8.4-10.2); Hemolysis Index 48
--- NOTE | 2018-12-09 08:36 | Hem/Onc Progress Note ---
Assessment and Plan Peripheral extremities both lower and left upper extremity thromboembolic disease. This may be related to her generalized disease etiology versus rheumatology issue versus embolic phenomena. There was a question if this is HIT. However, the platelet count is not low. HIT test Negative 1. Elevated bilirubin. 2. Electrolyte imbalance. 3. Arterial thrombus, on anticoagulation. 4. Diabetic ketoacidosis. 5. Hypertension. 6. Ischemic cardiomyopathy with low ejection fraction. 7. h/o Respiratory failure. 8. Sepsis, elevated troponin /CPK. I will follow the patient during inpatient stay and then in the clinic setting. The cause of thromboembolism is not clear. White cell count is high. There is a question if this has any relation. echo done RODNEY Done HIT negative high hct likely sec to sleep apnea dark toes - with arterial thrombus HIT neg - on IV heparin there is a question if her signs and symptoms are sec to rheumatology issues was on iv heparin - off same due to heavy cycles vascular consulted - ? sx plan ? for the foot - Patient Problems (1) Ischemia Current Visit: Yes Status: Acute Subjective Date of service: 12/09/18 Principal diagnosis: thrombus Interval history: had heavy cycles - off heparin Objective - Exam Narrative Exam: Pain - hand and leg General appearance pain Performance status limited self care Eyes - no icterus ENT - no bleeding LNs cervical not palpable Neck - no LN Respiratory Normal Breath sounds - CTA CVS S1 S2 + Extremities cold toes and dark left hand finger General GI Soft Rectal deferred female - deferred Skin warm Musculoskeletal moving extremitites - dark foot and left hand finger Neurologically awake - Constitutional Vitals: Last Vital Signs Temp 98.8 F 12/09/18 04:00 Pulse 75 12/09/18 06:21 Resp 20 12/09/18 04:00 BP 92/65 12/09/18 06:21 Pulse Ox 98 12/09/18 04:00 - Labs Lab Results: Laboratory Results - last 24 hr 12/03/18 12/03/18 12/08/18 14:33 14:33 12:10 Hgb Hct Plt Count PT INR Sodium Potassium Chloride Carbon Dioxide Anion Gap BUN Creatinine Estimated GFR BUN/Creatinine Ratio Glucose POC Glucose 151 H Calcium Total Bilirubin AST ALT Alkaline Phosphatase Total Protein Albumin Albumin/Globulin Ratio Proteinase 3 (PR3) Ab <1.0 Myeloperoxidase Ab <1.0 [id number]-1 Antibody <1.0 0812/08/18 12/09/18 16:17 20:30 05:25 Hgb 14.5 H Hct 43.4 H Plt Count 271 PT INR Sodium Potassium Chloride Carbon Dioxide Anion Gap BUN Creatinine Estimated GFR BUN/Creatinine Ratio Glucose POC Glucose 209 H 335 H Calcium Total Bilirubin AST ALT Alkaline Phosphatase Total Protein Albumin Albumin/Globulin Ratio Proteinase 3 (PR3) Ab Myeloperoxidase Ab VAUGHN-1 Antibody 12/09/18 12/09/18 12/09/18 05:25 05:25 08:13 Hgb Hct Plt Count PT 13.4 INR 1.05 Sodium 140 Potassium 4.5 Chloride 99.6 Carbon Dioxide 28 Anion Gap 17 BUN 21 H Creatinine 1.0 Estimated GFR > 60 BUN/Creatinine Ratio 21 Glucose 185 H POC Glucose 188 H Calcium 8.8 Total Bilirubin 0.60 AST 33 ALT 60 H Alkaline Phosphatase 232 H Total Protein 6.2 L Albumin 2.5 L Albumin/Globulin Ratio 0.7 Proteinase 3 (PR3) Ab Myeloperoxidase Ab VAUGHN-1 Antibody Medications & Allergies - Medications Allergies/Adverse Reactions: Allergies lisinopril Adverse Reaction (Severe, Verified 12/17/13 19:00) SORE THROAT;PERSISTENT COUGH Home Medications: Home Medications Medication Instructions Recorded Confirmed Last Taken Type Aspirin [Aspirin BABY CHEW TAB] 81 mg PO QDAY 11/28/18 11/29/18 11/26/18 History Fluticasone [Flonase] 1 spray NS BID 11/28/18 11/28/18 Unknown History Furosemide [Lasix TAB] 40 mg PO BID 11/28/18 11/28/18 Unknown History Ibuprofen [Motrin] 600 mg PO Q6H PRN 11/28/18 11/28/18 Unknown History Montelukast [Singulair] 10 mg PO QPM 11/28/18 11/28/18 Unknown History Mycophenolate [Cellcept] 500 mg PO BID 11/28/18 11/28/18 Unknown History Mycophenolate [Cellcept] 500 mg PO BID PRN MDD 2 TABS 11/28/18 11/28/18 Unknown History Pantoprazole [Protonix] 40 mg PO QDAY 11/28/18 11/28/18 Unknown History Sacubitril/Valsartan [Entresto 1 each PO BID 11/28/18 11/28/18 Unknown History 49-51 mg] predniSONE [Deltasone] 50 mg PO QDAY 11/28/18 11/28/18 Unknown History raNITIdine HCl [Zantac] 150 mg PO BID 11/28/18 11/28/18 Unknown History Amitriptyline [Elavil] 25 mg PO HS 11/29/18 11/29/18 11/26/18 History Aspirin [Adult Aspirin] 81 mg PO ONCE 11/29/18 11/29/18 11/26/18 History Entresto 49-51 mg 49 mg PO BID 11/29/18 11/29/18 11/26/18 History HYDROcodone/APAP 5-325 5 mg PO Q6HR PRN 11/29/18 11/29/18 Unknown History Active Medications: Generic Name Dose Route Start Last Admin Trade Name Freq PRN Reason Stop Dose Admin Acetaminophen 650 mg 11/28/18 03:02 Tylenol PO Q4H PRN Pain MILD(1-3)/Fever >100.5/TURPIN Alprazolam 0.25 mg 11/30/18 01:09 12/06/18 20:47 Xanax PO 0.25 mg Q8H PRN Administration Anxiety Amiodarone HCl 200 mg 12/02/18 12:00 12/08/18 22:26 Cordarone PO 200 mg BID VIOLA Administration Amitriptyline HCl 25 mg 11/29/18 22:00 12/08/18 22:26 Elavil PO 25 mg HS VIOLA Administration Aspirin 81 mg 11/29/18 10:00 12/08/18 10:15 Baby Aspirin PO 81 mg QDAY VIOLA Administration Dextrose 0 ml 11/28/18 02:19 D50w (25gm) Syringe IV PRN PRN Hypoglycemia Fluticasone Propionate 50 mcg 11/29/18 10:00 12/08/18 22:28 Flonase NS 50 mcg BID VIOLA Administration Hydralazine HCl 10 mg 11/28/18 03:41 Apresoline IV Q6HR PRN Blood Pressure Hydrophilic Ointment 1 applic 11/30/18 11:55 Vaseline Lip Therapy TP DIRECT PRN DRY LIPS Sodium Chloride 1,000 mls @ 125 mls/hr 12/02/18 13:00 12/03/18 11:24 Nacl 0.9% 1000 Ml IV 0 mls/hr DIRECT VIOLA Infusion Heparin Sodium/Sodium Chloride 25,000 unit in 500 mls @ 27 mls/hr 12/07/18 12:00 12/08/18 07:21 Heparin/ 0.45% Nacl-25,000 Unit/500 Ml IV 1,350 units/hr TITR VIOLA 27 mls/hr Administration Protocol 1,350 UNITS/HR Insulin Human Isoph/Insulin Regular 20 unit 12/07/18 08:30 12/08/18 17:16 Humulin 70/30 SUB-Q 20 unit BIDDIAB VIOLA Administration Insulin Human Lispro 0 unit 11/30/18 09:00 12/08/18 22:29 Humalog SUB-Q 6 unit ACHS VIOLA Administration Protocol Metoprolol Tartrate 25 mg 11/30/18 14:00 12/09/18 06:20 Lopressor PO Not Given Q8HR VIOLA Montelukast Sodium 10 mg 11/29/18 18:00 12/08/18 17:17 Singulair PO 10 mg QPM VIOLA Administration Morphine Sulfate 2 mg 11/28/18 03:02 12/07/18 23:08 Morphine IV 2 mg Q4H PRN Administration Pain, Moderate (4-6) Nitroglycerin 0.75 inch 11/29/18 14:00 12/09/18 06:21 Nitro-Bid 2% TP Not Given QIDNTG [facility] Protocol Ondansetron HCl 4 mg 11/28/18 03:02 Zofran IV Q8H PRN Nausea And Vomiting Pantoprazole Sodium 40 mg 11/29/18 10:00 12/08/18 10:17 Protonix PO 40 mg QDAY [facility] Administration Pentoxifylline 400 mg 11/29/18 13:00 12/08/18 22:30 [place] PO 400 mg Q12HR VIOLA Administration Prednisone 50 mg 11/29/18 10:00 12/08/18 10:16 Deltasone PO 50 mg QDAY VIOLA Administration Sodium Chloride 10 ml 11/28/18 10:00 12/08/18 22:30 Sodium Chloride Flush Syringe 10 Ml IV 10 ml BID VIOLA Administration Sodium Chloride 10 ml 11/28/18 03:02 Sodium Chloride Flush Syringe 10 Ml IV PRN PRN LINE FLUSH
[2018-12-09] MEDS: HumaLOG SUB-Q SCH ×4 (08:52→21:53)
--- NOTE | 2018-12-09 08:54 | Progress Note ---
Assessment and Plan Assessment and plan: --GI bleeding/epistaxis/vaginal bleeding; Discussed with GI, advised to continue heparin, If patient has severe bleeding or significant drop in H&H will consider holding heparin --Ischemic lower > upper extremity. Vasc Surgery following, Dr. Hernandez, On heparin drip HIT panel -negative, F/U labs for vasculitis--CRP, sedimentation rate, anti-Ro, anti-la, anti-Maritza 1, AMA, ANCA, rheumatoid factor. Anti-ccp --Hyperosmolar hyperglycemic state (HHS) in a newly diagnosed Diabetes-new onset Patient was admitted to the ICU on insulin drip, now off Insulin drip Continue serial BMP level monitoring, Cont. Novolin 70/30 --Diabetes mellitus type 2-new onset --Sepsis: CT abd/pelvis showed generalized bronchiectasis Blood cultures no growth --Vtach s/p shocked 8 tiemes by AICD, as per interrogation, notes in paper chart Cont. Amiodarone cardiology following, b-ernesto added RODNEY planned for Thursday --Metabolic encephalopathy, resolved Head CT scan negative We'll monitor clinically --Acute hypoxic respiratory failure. O2 and BiPAP as clinically indicated. --CATRACHO Continue CPAP during sleep and when necessary. --Interstitial lung disease. Continue per pulmonary. 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, but I did not resume because it may cause thrombosis Full code status Stable to be transferred out of IMCU to medical floor History Interval history: Patient had episodes of epistaxis, GI bleeding and vaginal bleeding Patient ischemic lower extremities on heparin drip No active bleeding this morning Patient is alert and awake, not in acute distress Vital signs noted Hospitalist Physical - Constitutional Vitals: Temp Pulse Resp BP Pulse Ox 97.7 F 75 20 92/65 98 12/09/18 08:00 12/09/18 06:21 12/09/18 04:00 12/09/18 06:21 12/09/18 04:00 General appearance: Present: no acute distress, well-nourished, obese - EENT Eyes: Present: PERRL, EOM intact - Neck Neck: Present: supple, normal ROM - Respiratory Respiratory effort: normal Respiratory: bilateral: diminished, negative: rales, rhonchi, wheezing - Cardiovascular Rhythm: regular Heart Sounds: Present: S1 & S2 - Extremities Extremities: abnormal (cyanotic britton feet) Results - Labs CBC & Chem 7: 12/09/18 05:25 12/09/18 05:25 Labs: Laboratory Last Values WBC 17.6 K/mm3 (4.5-11.0) H 12/07/18 09:00 RBC 5.56 M/mm3 (3.65-5.03) H 12/07/18 09:00 Hgb 14.5 gm/dl (10.1-14.3) H 12/09/18 05:25 Hct 43.4 % (30.3-42.9) H 12/09/18 05:25 MCV 85 fl (79-97) 12/07/18 09:00 MCH 28 pg (28-32) 12/07/18 09:00 MCHC 33 % (30-34) 12/07/18 09:00 RDW 19.1 % (13.2-15.2) H 12/07/18 09:00 Plt Count 271 K/mm3 (140-440) 12/09/18 05:25 Lymph % (Auto) 2.6 % (13.4-35.0) L 12/05/18 06:10 Glynn % (Auto) 14.8 % (0.0-7.3) H 12/05/18 06:10 Eos % (Auto) 0.1 % (0.0-4.3) 12/05/18 06:10 Baso % (Auto) 0.3 % (0.0-1.8) 12/05/18 06:10 Lymph # 0.5 K/mm3 (1.2-5.4) L 12/05/18 06:10 Glynn # 2.8 K/mm3 (0.0-0.8) H 12/05/18 06:10 Eos # 0.0 K/mm3 (0.0-0.4) 12/05/18 06:10 Baso # 0.1 K/mm3 (0.0-0.1) 12/05/18 06:10 Add Manual Diff Complete 12/07/18 09:00 Total Counted 100 12/07/18 09:00 Seg Neutrophils % 82.2 % (40.0-70.0) H 12/05/18 06:10 Seg Neuts % (Manual) 89.0 % (40.0-70.0) H 12/07/18 09:00 0 % 12/07/18 09:00 4.0 % (13.4-35.0) L 12/07/18 09:00 Reactive Lymphs % (Man) 0 % 12/07/18 09:00 6.0 % (0.0-7.3) 12/07/18 09:00 0 % (0.0-4.3) 12/07/18 09:00 0 % (0.0-1.8) 12/07/18 09:00 1.0 % 12/07/18 09:00 0 % 12/07/18 09:00 0 % 12/07/18 09:00 0 % 12/07/18 09:00 Nucleated RBC % Not Reportable 12/07/18 09:00 Seg Neutrophils # 15.5 K/mm3 (1.8-7.7) H 12/05/18 06:10 Seg Neutrophils # Man 15.7 K/mm3 (1.8-7.7) H 12/07/18 09:00 Band Neutrophils # 0.0 K/mm3 12/07/18 09:00 0.7 K/mm3 (1.2-5.4) L 12/07/18 09:00 Abs React Lymphs (Man) 0.0 K/mm3 12/07/18 09:00 1.1 K/mm3 (0.0-0.8) H 12/07/18 09:00 0.0 K/mm3 (0.0-0.4) 12/07/18 09:00 0.0 K/mm3 (0.0-0.1) 12/07/18 09:00 0.2 K/mm3 12/07/18 09:00 0.0 K/mm3 12/07/18 09:00 0.0 K/mm3 12/07/18 09:00 Blast Cells # 0.0 K/mm3 12/07/18 09:00 WBC Morphology Not Reportable 12/07/18 09:00 Hypersegmented Neuts Not Reportable 12/07/18 09:00 Hyposegmented Neuts Not Reportable 12/07/18 09:00 Hypogranular Neuts Not Reportable 12/07/18 09:00 Not Reportable 12/07/18 09:00 Not Reportable 12/07/18 09:00 Not Reportable 12/07/18 09:00 Not Reportable 12/07/18 09:00 Not Reportable 12/07/18 09:00 Not Reportable 12/07/18 09:00 Consistent w auto 12/07/18 09:00 Not Reportable 12/07/18 09:00 Plt Clumps, EDTA Not Reportable 12/07/18 09:00 Not Reportable 12/07/18 09:00 Not Reportable 12/07/18 09:00 Not Reportable 12/07/18 09:00 Plt Morphology Comment Not Reportable 12/07/18 09:00 RBC Morphology Not Reportable 12/07/18 09:00 Dimorphic RBCs Not Reportable 12/07/18 09:00 Few 12/07/18 09:00 Not Reportable 12/07/18 09:00 Not Reportable 12/07/18 09:00 1+ 12/07/18 09:00 Not Reportable 12/07/18 09:00 Not Reportable 12/07/18 09:00 Not Reportable 12/07/18 09:00 Not Reportable 12/07/18 09:00 Not Reportable 12/07/18 09:00 Not Reportable 12/07/18 09:00 Not Reportable 12/07/18 09:00 Not Reportable 12/07/18 09:00 Not Reportable 12/07/18 09:00 Not Reportable 12/07/18 09:00 Not Reportable 12/07/18 09:00 Not Reportable 12/07/18 09:00 Not Reportable 12/07/18 09:00 Not Reportable 12/07/18 09:00 Not Reportable 12/07/18 09:00 Acanthocytes (Spur) Not Reportable 12/07/18 09:00 Rouleaux Not Reportable 12/07/18 09:00 Not Reportable 12/07/18 09:00 Not Reportable 12/07/18 09:00 Not Reportable 12/07/18 09:00 ESR 1 mm/Hr (0-20) 12/03/18 14:33 Not Reportable 12/07/18 09:00 Hem Pathologist Commnt No 12/07/18 09:00 PT 13.4 Sec. (12.2-14.9) 12/09/18 05:25 INR 1.05 (0.87-1.13) 12/09/18 05:25 APTT 41.6 Sec. (24.2-36.6) H 12/07/18 09:00 Heparin Anti-Xa Level 0.54 U.I./ml (0.3-0.7) 12/07/18 18:48 Heparin Anti-Xa, Unfract Negative (Negative) 11/29/18 16:46 POC ABG pH 7.413 (7.35-7.45) 12/01/18 10:39 ABG pH 7.414 pH Units (7.350-7.450) 11/28/18 01:01 POC ABG pCO2 30.6 (35-45) L 12/01/18 10:39 ABG pCO2 48.8 mm Hg 11/28/18 01:01 POC ABG pO2 95 (80-105) 12/01/18 10:39 ABG pO2 65.7 mm Hg (80.0-90.0) L 11/28/18 01:01 POC ABG HCO3 19.5 (22-26 mml/L) 12/01/18 10:39 ABG HCO3 30.5 mmol/L (20.0-26.0) H 11/28/18 01:01 POC ABG Total CO2 20 (23-27mmol/L) 12/01/18 10:39 POC ABG O2 Sat 98 12/01/18 10:39 ABG O2 Saturation 91.3 % (95.0-99.0) L 11/28/18 01:01 ABG O2 Content 22.2 (0.0-44) 11/28/18 01:01 POC ABG Base Excess -5 ((-2) - (+3)mmol/L) 12/01/18 10:39 ABG Base Excess 4.6 mmol/L (-2.0-3.0) H 11/28/18 01:01 ABG Hemoglobin 18.0 gm/dl (12.0-16.0) H 11/28/18 01:01 ABG Carboxyhemoglobin 3.1 % (0.0-5.0) 11/28/18 01:01 ABG Methemoglobin 0.5 % (0.0-1.5) 11/28/18 01:01 VBG pH 7.414 (7.320-7.420) 11/28/18 01:01 88.0 % (95.0-99.0) L 11/28/18 01:01 28 % 12/01/18 10:39 Sodium 140 mmol/L (137-145) 12/09/18 05:25 Potassium 4.5 mmol/L (3.6-5.0) 12/09/18 05:25 Chloride 99.6 mmol/L (98-107) 12/09/18 05:25 Carbon Dioxide 28 mmol/L (22-30) 12/09/18 05:25 17 mmol/L 12/09/18 05:25 BUN 21 mg/dL (7-17) H 12/09/18 05:25 1.0 mg/dL (0.7-1.2) 12/09/18 05:25 Estimated GFR > 60 ml/min 12/09/18 05:25 21 % 12/09/18 05:25 Glucose 185 mg/dL (65-100) H 12/09/18 05:25 POC Glucose 188 (70-105) H 12/09/18 08:13 12.5 % (4-6) H 11/28/18 01:01 Lactic Acid 5.00 mmol/L (0.7-2.0) H* 11/28/18 15:14 Calcium 8.8 mg/dL (8.4-10.2) 12/09/18 05:25 Phosphorus 3.30 mg/dL (2.5-4.5) 11/30/18 07:18 Magnesium 3.20 mg/dL (1.7-2.3) H 11/30/18 07:18 0.60 mg/dL (0.1-1.2) 12/09/18 05:25 1.3 mg/dL (0-0.2) H 11/28/18 01:01 1.1 mg/dL 11/28/18 01:01 AST 33 units/L (5-40) 12/09/18 05:25 ALT 60 units/L (7-56) H 12/09/18 05:25 232 units/L (35-129) H 12/09/18 05:25 30.0 umol/L (25-60) 11/28/18 01:01 976 units/L (91-180) H 12/01/18 13:45 228 units/L (30-135) H 11/28/18 01:01 0.030 ng/mL (0.00-0.029) H D 11/28/18 07:50 7.70 mg/dL (0.00-1.30) H 12/03/18 14:33 6.2 g/dL (6.3-8.2) L 12/09/18 05:25 2.5 g/dL (3.9-5) L 12/09/18 05:25 0.7 % 12/09/18 05:25 Triglycerides 356 mg/dL (2-149) H 11/28/18 01:01 Cholesterol 200 mg/dL (50-199) H 11/28/18 01:01 125 mg/dL (50-130) 11/28/18 01:01 39 mg/dL (40-59) L 11/28/18 01:01 5.12 % 11/28/18 01:01 See scanned result 11/29/18 16:46 TSH 0.288 mlU/mL (0.270-4.200) 11/28/18 01:01 HCG, Quant < 2 mIU/mL (0-4) 11/28/18 01:01 Straw (Yellow) 11/28/18 00:37 Clear (Clear) 11/28/18 00:37 7.0 (5.0-7.0) 11/28/18 00:37 Ur Specific [place] 1.023 (1.003-1.030) 11/28/18 00:37 30 mg/dl mg/dL (Negative) 11/28/18 00:37 >=500 mg/dL (Negative) 11/28/18 00:37 Tr mg/dL (Negative) 11/28/18 00:37 Sm (Negative) 11/28/18 00:37 Neg (Negative) 11/28/18 00:37 Neg (Negative) 11/28/18 00:37 < 2.0 mg/dL (<2.0) 11/28/18 00:37 Ur Leukocyte Esterase Neg (Negative) 11/28/18 00:37 < 1.0 /HPF (0.0-6.0) 11/28/18 00:37 1.0 /HPF (0.0-6.0) 11/28/18 00:37 None seen (None Seen) 11/29/18 13:40 117.4 mg/dL (0.1-20.0) H 11/29/18 13:40 53 mmol/L 11/29/18 13:40 120 mg/dL (5-11.8) H 11/29/18 13:40 Urine HCG, Qual Negative (Negative) 11/28/18 Unknown Salicylates < 0.3 mg/dL (2.8-20.0) L 11/28/18 01:01 Presumptive negative 11/28/18 00:37 Presumptive negative 11/28/18 00:37 Acetaminophen < 5.0 ug/mL (10.0-30.0) L 11/28/18 01:01 Ur Barbiturates Screen Presumptive negative 11/28/18 00:37 Ur Phencyclidine Scrn Presumptive negative 11/28/18 00:37 Ur Amphetamines Screen Presumptive negative 11/28/18 00:37 U Benzodiazepines Scrn Presumptive negative 11/28/18 00:37 Presumptive negative 11/28/18 00:37 U Marijuana (THC) Screen Presumptive negative 11/28/18 00:37 Disclamer 11/28/18 00:37 Plasma/Serum Alcohol < 0.01 % (0-0.07) 11/28/18 01:01 13 IU/ml (0-13) 12/03/18 14:33 Proteinase 3 (PR3) Ab <1.0 AI (<1.0) 12/03/18 14:33 Myeloperoxidase Ab <1.0 AI (<1.0) 12/03/18 14:33 <1.0 AI (<1.0) 12/03/18 14:33 Heparin-induced Plt Ab Negative (Negative) 11/29/18 16:46 UF Heparin High Dose 18 % Release 11/29/18 16:46 GALE UFH Low Dose 0.1 12 % Release 11/29/18 16:46 GALE UFH Low Dose 0.5 16 % Release 11/29/18 16:46 Blood Type B POSITIVE 11/28/18 01:01 Antibody Screen Negative 11/28/18 01:01 Active Medications - Current Medications Current Medications: Generic Name Dose Route Start Last Admin Trade Name Freq PRN Reason Stop Dose Admin Acetaminophen 650 mg 11/28/18 03:02 Tylenol PO Q4H PRN Pain MILD(1-3)/Fever >100.5/TURPIN Alprazolam 0.25 mg 11/30/18 01:09 12/06/18 20:47 Xanax PO 0.25 mg Q8H PRN Administration Anxiety Amiodarone HCl 200 mg 12/02/18 12:00 12/08/18 22:26 Cordarone PO 200 mg BID VIOLA Administration Amitriptyline HCl 25 mg 11/29/18 22:00 12/08/18 22:26 Elavil PO 25 mg HS VIOLA Administration Aspirin 81 mg 11/29/18 10:00 12/08/18 10:15 Baby Aspirin PO 81 mg QDAY VIOLA Administration Dextrose 0 ml 11/28/18 02:19 D50w (25gm) Syringe IV PRN PRN Hypoglycemia Fluticasone Propionate 50 mcg 11/29/18 10:00 12/08/18 22:28 Flonase NS 50 mcg BID VIOLA Administration Hydralazine HCl 10 mg 11/28/18 03:41 Apresoline IV Q6HR PRN Blood Pressure Hydrophilic Ointment 1 applic 11/30/18 11:55 Vaseline Lip Therapy TP DIRECT PRN DRY LIPS Sodium Chloride 1,000 mls @ 125 mls/hr 12/02/18 13:00 12/03/18 11:24 Nacl 0.9% 1000 Ml IV 0 mls/hr DIRECT VIOLA Infusion Heparin Sodium/Sodium Chloride 25,000 unit in 500 mls @ 27 mls/hr 12/07/18 12:00 12/08/18 07:21 Heparin/ 0.45% Nacl-25,000 Unit/500 Ml IV 1,350 units/hr TITR VIOLA 27 mls/hr Administration Protocol 1,350 UNITS/HR Insulin Human Isoph/Insulin Regular 20 unit 12/07/18 08:30 12/08/18 17:16 Humulin 70/30 SUB-Q 20 unit BIDDIAB VIOLA Administration Insulin Human Lispro 0 unit 11/30/18 09:00 12/08/18 22:29 Humalog SUB-Q 6 unit ACHS VIOLA Administration Protocol Metoprolol Tartrate 25 mg 11/30/18 14:00 12/09/18 06:20 Lopressor PO Not Given Q8HR VIOLA Montelukast Sodium 10 mg 11/29/18 18:00 12/08/18 17:17 Singulair PO 10 mg QPM VIOLA Administration Morphine Sulfate 2 mg 11/28/18 03:02 12/07/18 23:08 Morphine IV 2 mg Q4H PRN Administration Pain, Moderate (4-6) Nitroglycerin 0.75 inch 11/29/18 14:00 12/09/18 06:21 Nitro-Bid 2% TP Not Given QIDNTG [facility] Protocol Ondansetron HCl 4 mg 11/28/18 03:02 Zofran IV Q8H PRN Nausea And Vomiting Pantoprazole Sodium 40 mg 11/29/18 10:00 12/08/18 10:17 Protonix PO 40 mg QDAY VIOLA Administration Pentoxifylline 400 mg 11/29/18 13:00 12/08/18 22:30 Trental PO 400 mg Q12HR VIOLA Administration Prednisone 50 mg 11/29/18 10:00 12/08/18 10:16 Deltasone PO 50 mg QDAY VIOLA Administration Sodium Chloride 10 ml 11/28/18 10:00 12/08/18 22:30 Sodium Chloride Flush Syringe 10 Ml IV 10 ml BID VIOLA Administration Sodium Chloride 10 ml 11/28/18 03:02 Sodium Chloride Flush Syringe 10 Ml IV PRN PRN LINE FLUSH Nutrition/Malnutrition Assess - Dietary Evaluation Nutrition/Malnutrition Findings: Nutrition Notes Start: 11/29/18 14:34 Freq: Status: Active Protocol: Document 11/29/18 14:35 LM (Rec: 11/29/18 14:40 LM [id number]) Nutrition Notes Need for Assessment generated from: Education Initial or Follow up Brief Note Current Diagnosis Diabetes,Hypertension Subjective/Other Information Consult for DM education. #1 Nutrition Diagnosis Food and nutrition-related knowledge deficit Etiology No prior DM diet education As Evidenced by Signs and Symptoms Pt statement of needing DM diet education, HGB A1C of 12. 5, BG 203 Nutrition Intervention Teaching Recipient Patient Learning Readiness Good Teaching Methods Discussion,Handout Education Handouts Provided Carbohydrate Counting for People with Diabetes RD phone number provided Yes Patient aware of follow up options Yes Revisit per MD consult or patient Sign Off request:
[2018-12-09] MEDS: TRENTAL PO SCH ×2 (09:40→21:24)
[2018-12-09] MEDS: PROTONIX PO SCH (09:41)
[2018-12-09] MEDS: CORDARONE PO SCH ×2 (09:41→22:03)
[2018-12-09] MEDS: DELTASONE PO SCH (09:41)
[2018-12-09] MEDS: ENTRESTO 49-51 MG PO SCH ×2 (09:41→21:24)
[2018-12-09] MEDS: BABY ASPIRIN PO SCH (09:42)
[2018-12-09] MEDS: FLONASE NS SCH ×2 (09:43→21:56)
[2018-12-09] MEDS: SODIUM CHLORIDE FLUSH SYRINGE 10 ML IV SCH ×2 (09:43→21:25)
--- NOTE | 2018-12-09 13:26 | Progress Note ---
Assessment and Plan - Patient Problems (1) Nonsustained ventricular tachycardia Current Visit: Yes Status: Acute Plan to address problem: Continue amiodarone, cardiac defibrillator in situ. (2) Nonischemic cardiomyopathy Current Visit: Yes Status: Acute Plan to address problem: Guideline directed medical therapy for chronic systolic left ventricular dysf unction. Subjective Date of service: 12/09/18 Principal diagnosis: thrombus Interval history: Patient is awake, alert, comfortable in no acute distress. Rhythm is sinus, blood pressure is stable. Objective Vital Signs Temp Pulse Pulse Resp BP Pulse Ox 12/09/18 13:10 94/73 12/09/18 13:05 94/73 12/09/18 12:55 98.5 F 71 22 115/80 99 12/09/18 12:21 87 39 H 94/73 98 12/09/18 12:10 84 39 H 122/72 98 12/09/18 12:00 97.8 F 83 38 H 94/73 99 12/09/18 11:00 83 41 H 107/68 99 12/09/18 10:01 85 41 H 122/72 99 12/09/18 09:44 84 124/85 12/09/18 09:01 87 20 124/85 99 12/09/18 09:00 76 12/09/18 08:00 97.7 F 73 73 29 H 92/65 99 12/09/18 07:00 73 29 H 101/63 96 12/09/18 06:21 75 92/65 12/09/18 06:20 75 92/65 12/09/18 06:00 75 40 H 107/69 98 12/09/18 05:00 75 21 100/84 99 12/09/18 04:00 98.8 F 72 73 25 H 119/81 100 12/09/18 03:41 98.8 F 12/09/18 03:00 73 28 H 114/76 99 12/09/18 02:00 72 25 H 110/75 100 12/09/18 01:00 75 35 H 111/71 98 12/09/18 00:01 78 20 121/61 12/09/18 00:00 98.9 F 79 15 12/08/18 23:00 78 40 H 114/73 12/08/18 22:29 79 117/78 12/08/18 22:00 81 47 H 117/78 98 12/08/18 21:00 77 45 H 99/59 12/08/18 20:01 81 23 114/79 12/08/18 20:00 98.4 F 79 80 22 114/79 12/08/18 19:00 77 24 97/56 12/08/18 18:00 76 22 104/68 12/08/18 17:16 80 124/87 12/08/18 17:00 85 10 L 124/87 98 12/08/18 16:00 97.6 F 85 78 41 H 119/71 99 12/08/18 15:15 86 115/68 12/08/18 15:14 85 115/68 12/08/18 15:00 123 H 18 115/68 98 12/08/18 14:01 86 25 H 97/ 99 - Physical Examination General: No Apparent Distress HEENT: Positive: PERRL Neck: Positive: trachea midline Cardiac: Positive: Reg Rate and Rhythm Lungs: Positive: Decreased Breath Sounds Neuro: Positive: Grossly Intact Abdomen: Positive: Soft Skin: Positive: Clear Extremities: Present: Other. Absent: edema - Labs and Meds Cardiac Enzymes 12/09/18 Range/Units 05:25 AST 33 (5-40) units/L Coagulation 12/09/18 Range/Units 05:25 PT 13.4 (12.2-14.9) Sec. INR 1.05 (0.87-1.13) CBC 12/09/18 Range/Units 05:25 Hgb 14.5 H (10.1-14.3) gm/dl Hct 43.4 H (30.3-42.9) % Plt Count 271 (140-440) K/mm3 Comprehensive Metabolic Panel 12/09/18 Range/Units 05:25 Sodium 140 (137-145) mmol/L Potassium 4.5 (3.6-5.0) mmol/L Chloride 99.6 (98-107) mmol/L Carbon Dioxide 28 (22-30) mmol/L BUN 21 H (7-17) mg/dL Creatinine 1.0 (0.7-1.2) mg/dL Glucose 185 H (65-100) mg/dL Calcium 8.8 (8.4-10.2) mg/dL AST 33 (5-40) units/L ALT 60 H (7-56) units/L Alkaline Phosphatase 232 H (35-129) units/L Total Protein 6.2 L (6.3-8.2) g/dL Albumin 2.5 L (3.9-5) g/dL
--- NOTE | 2018-12-09 14:26 | Progress Note ---
Assessment and Plan 38-year-old female with scleroderma, severe cardiomyopathy with AICD and runs of V tach and V fib, and recent transition from prednisone to CellCept 2 weeks ago with development of cyanotic upper extremity left middle digit and bilateral fe et (predominantly forefoot). Negative RODNEY. Arterial doppler was used which demonstrates no visualized thrombus of the lower extremity or left upper extremity issues, but does show monophasic waveforms. Arterial doppler of the abdominal aorta and iliac shows no thrombus. HIT panel negative. Feet and left finger are starting to demarcate. Once demarcated, will need amputation if patient can tolerate amputation given her coronary status. Recently had bleeding on Heparin. Heparin held. Had positive FOBT with patient telling me she had bloody bowel movements. Also having menses, but patient tells me her menses has decreased in amount and is currently minimal. Had bleeding from nose. Discussed with Dr. Myrick who will consult GI. Subjective Date of service: 12/09/18 Principal diagnosis: thrombus Interval history: The left third digit has demarcated and is nonsalvageable at the tip. The bilateral feet are now warm, but there is ischemic, partially demarcated tissue at the midfoot near the hindfoot and the forefoot on the right side and left forefoot on the left side. Objective - Constitutional Vitals: Vital Signs - 12hr 12/09/18 12/09/18 12/09/18 03:00 03:41 04:00 Temperature 98.8 F 98.8 F Pulse Rate 73 72 Pulse Rate [ 73 From Monitor] Respiratory 28 H 25 H Rate Blood Pressure 114/76 119/81 O2 Sat by Pulse 99 100 Oximetry 12/09/18 12/09/18 12/09/18 05:00 06:00 06:20 Temperature Pulse Rate 75 75 75 Pulse Rate [ From Monitor] Respiratory 21 40 H Rate Blood Pressure 100/84 107/69 92/65 O2 Sat by Pulse 99 98 Oximetry 12/09/18 12/09/18 12/09/18 06:21 07:00 08:00 Temperature 97.7 F Pulse Rate 75 73 73 Pulse Rate [ 73 From Monitor] Respiratory 29 H 29 H Rate Blood Pressure 92/65 101/63 92/65 O2 Sat by Pulse 96 99 Oximetry 12/09/18 12/09/18 12/09/18 09:00 09:01 09:44 Temperature Pulse Rate 76 87 84 Pulse Rate [ From Monitor] Respiratory 20 Rate Blood Pressure 124/85 124/85 O2 Sat by Pulse 99 Oximetry 12/09/18 12/09/18 12/09/18 10:01 11:00 12:00 Temperature 97.8 F Pulse Rate 85 83 83 Pulse Rate [ From Monitor] Respiratory 41 H 41 H 38 H Rate Blood Pressure 122/72 107/68 94/73 O2 Sat by Pulse 99 99 99 Oximetry 12/09/18 12/09/18 12/09/18 12:10 12:21 12:55 Temperature 98.5 F Pulse Rate 84 87 71 Pulse Rate [ From Monitor] Respiratory 39 H 39 H 22 Rate Blood Pressure 122/72 94/73 115/80 O2 Sat by Pulse 98 98 99 Oximetry 12/09/18 12/09/18 12/09/18 13:05 13:10 13:20 Temperature Pulse Rate Pulse Rate [ From Monitor] Respiratory Rate Blood Pressure 94/73 94/73 94/73 O2 Sat by Pulse Oximetry 12/09/18 14:18 Temperature Pulse Rate Pulse Rate [ From Monitor] Respiratory Rate Blood Pressure 94/73 O2 Sat by Pulse Oximetry General appearance: Present: no acute distress - EENT Eyes: EOM intact ENT: hearing intact - Respiratory Respiratory effort: normal Extremities: abnormal (see subjective) - Psychiatric Psychiatric: appropriate mood/affect, cooperative - Labs CBC & Chem 7: 12/09/18 05:25 12/09/18 05:25 Labs: Abnormal lab results 12/08/18 12/08/18 12/09/18 Range/Units 16:17 20:30 05:25 Hgb 14.5 H (10.1-14.3) gm/dl Hct 43.4 H (30.3-42.9) % BUN (7-17) mg/dL Glucose (65-100) mg/dL POC Glucose 209 H 335 H (70-105) ALT (7-56) units/L Alkaline Phosphatase (35-129) units/L Total Protein (6.3-8.2) g/dL Albumin (3.9-5) g/dL 12/09/18 12/09/18 12/09/18 Range/Units 05:25 08:13 11:42 Hgb (10.1-14.3) gm/dl Hct (30.3-42.9) % BUN 21 H (7-17) mg/dL Glucose 185 H (65-100) mg/dL POC Glucose 188 H 265 H (70-105) ALT 60 H (7-56) units/L Alkaline Phosphatase 232 H (35-129) units/L Total Protein 6.2 L (6.3-8.2) g/dL Albumin 2.5 L (3.9-5) g/dL Medications & Allergies - Medications Allergies/Adverse Reactions: Allergies lisinopril Adverse Reaction (Severe, Verified 12/17/13 19:00) SORE THROAT;PERSISTENT COUGH Home Medications: Home Medications Medication Instructions Recorded Confirmed Last Taken Type Aspirin [Aspirin BABY CHEW TAB] 81 mg PO QDAY 11/28/18 11/29/18 11/26/18 History Fluticasone [Flonase] 1 spray NS BID 11/28/18 11/28/18 Unknown History Furosemide [Lasix TAB] 40 mg PO BID 11/28/18 11/28/18 Unknown History Ibuprofen [Motrin] 600 mg PO Q6H PRN 11/28/18 11/28/18 Unknown History Montelukast [Singulair] 10 mg PO QPM 11/28/18 11/28/18 Unknown History Mycophenolate [Cellcept] 500 mg PO BID 11/28/18 11/28/18 Unknown History Mycophenolate [Cellcept] 500 mg PO BID PRN MDD 2 TABS 11/28/18 11/28/18 Unknown History Pantoprazole [Protonix] 40 mg PO QDAY 11/28/18 11/28/18 Unknown History Sacubitril/Valsartan [Entresto 1 each PO BID 11/28/18 11/28/18 Unknown History 49-51 mg] predniSONE [Deltasone] 50 mg PO QDAY 11/28/18 11/28/18 Unknown History raNITIdine HCl [Zantac] 150 mg PO BID 11/28/18 11/28/18 Unknown History Amitriptyline [Elavil] 25 mg PO HS 11/29/18 11/29/18 11/26/18 History Aspirin [Adult Aspirin] 81 mg PO ONCE 11/29/18 11/29/18 11/26/18 History Entresto 49-51 mg 49 mg PO BID 11/29/18 11/29/18 11/26/18 History HYDROcodone/APAP 5-325 5 mg PO Q6HR PRN 11/29/18 11/29/18 Unknown History Active Medications: Generic Name Dose Route Start Last Admin Trade Name Terrence PRN Reason Stop Dose Admin Acetaminophen 650 mg 11/28/18 03:02 Tylenol PO Q4H PRN Pain MILD(1-3)/Fever >100.5/TURPIN Alprazolam 0.25 mg 11/30/18 01:09 12/06/18 20:47 Xanax PO 0.25 mg Q8H PRN Administration Anxiety Amiodarone HCl 200 mg 12/02/18 12:00 12/09/18 09:41 Cordarone PO 200 mg BID VIOLA Administration Amitriptyline HCl 25 mg 11/29/18 22:00 12/08/18 22:26 Elavil PO 25 mg HS VIOLA Administration Aspirin 81 mg 11/29/18 10:00 12/09/18 09:42 Baby Aspirin PO 81 mg QDAY VIOLA Administration Dextrose 0 ml 11/28/18 02:19 D50w (25gm) Syringe IV PRN PRN Hypoglycemia Fluticasone Propionate 50 mcg 11/29/18 10:00 12/09/18 09:43 Flonase NS 50 mcg BID VIOLA Administration Hydralazine HCl 10 mg 11/28/18 03:41 Apresoline IV Q6HR PRN Blood Pressure Hydrophilic Ointment 1 applic 11/30/18 11:55 Vaseline Lip Therapy TP DIRECT PRN DRY LIPS Sodium Chloride 1,000 mls @ 125 mls/hr 12/02/18 13:00 12/03/18 11:24 Nacl 0.9% 1000 Ml IV 0 mls/hr DIRECT VIOLA Infusion Heparin Sodium/Sodium Chloride 25,000 unit in 500 mls @ 27 mls/hr 12/07/18 1 2:00 12/08/18 07:21 Heparin/ 0.45% Nacl-25,000 Unit/500 Ml IV 1,350 units/hr TITR VIOLA 27 mls/hr Administration Protocol 1,350 UNITS/HR Insulin Human Isoph/Insulin Regular 20 unit 12/07/18 08:30 12/09/18 08:53 Humulin 70/30 SUB-Q 20 unit BIDDIAB VIOLA Administration Insulin Human Lispro 0 unit 11/30/18 09:00 12/09/18 11:57 Humalog SUB-Q 4 unit ACHS VIOLA Administration Protocol Metoprolol Tartrate 25 mg 11/30/18 14:00 12/09/18 14:18 Lopressor PO Not Given Q8HR VIOLA Montelukast Sodium 10 mg 11/29/18 18:00 12/08/18 17:17 Singulair PO 10 mg QPM VIOLA Administration Morphine Sulfate 2 mg 11/28/18 03:02 12/07/18 23:08 Morphine IV 2 mg Q4H PRN Administration Pain, Moderate (4-6) Ondansetron HCl 4 mg 11/28/18 03:02 Zofran IV Q8H PRN Nausea And Vomiting Pantoprazole Sodium 40 mg 11/29/18 10:00 12/09/18 09:41 Protonix PO 40 mg QDAY VIOLA Administration Pentoxifylline 400 mg 11/29/18 13:00 12/09/18 09:40 Trental PO 400 mg Q12HR VIOLA Administration Prednisone 50 mg 11/29/18 10:00 12/09/18 09:41 Deltasone PO 50 mg QDAY VIOLA Administration Sodium Chloride 10 ml 11/28/18 10:00 12/09/18 09:43 Sodium Chloride Flush Syringe 10 Ml IV 10 ml BID VIOLA Administration Sodium Chloride 10 ml 11/28/18 03:02 Sodium Chloride Flush Syringe 10 Ml IV PRN PRN LINE FLUSH
--- NOTE | 2018-12-09 17:28 | Progress Note ---
Assessment and Plan - Patient Problems (1) Acute kidney injury Current Visit: Yes Status: Acute Plan to address problem: Suspect Pre-renal azotemia vs Acute tubular necrosis secondary to hypotension. Kidney function normalized. Follow up electrolytes and renal function (2) Hypotension Current Visit: Yes Status: Acute Plan to address problem: Blood pressure has improved. Follow-up blood pressure (3) Hyperkalemia Current Visit: Yes Status: Acute Plan to address problem: Hyperkalemia on presentation improved with medical management. Follow-up electrolytes (4) Hypernatremia Current Visit: Yes Status: Acute Plan to address problem: Hypernatremia secondary to free water losses. now resolved (5) Acrocyanosis Current Visit: Yes Status: Acute Plan to address problem: Etiology uncertain. May be related to scleroderma. Arterial Duplex shows that Diffuse peripheral vascular disease in both lower extremities with occlusive disease of the left anterior tibial and dorsalis pedis arteries. Distal disease in the left hand. 1. RODNEY showed no Thrombus. 2. Vascular input appreciated: Possible severe vasospasm the setting of scleroderma superimposed on baseline peripheral vascular disease. HIT Ab negative (6) Hyperosmolar hyperglycemic coma due to diabetes mellitus without ketoacidosis Current Visit: Yes Status: Acute Plan to address problem: Steroid induced hyperglycemia/newly diagnosed type 2 diabetes mellitus. Blood sugar control by primary attending (7) Heart failure with reduced ejection fraction Current Visit: Yes Status: Acute Plan to address problem: Intravenous fluids stopped. Monitor volume status. (8) Transaminasemia Current Visit: Yes Status: Acute Plan to address problem: Probable ischemic hepatitis. Follow-up liver function tests Subjective Date of service: 12/09/18 Principal diagnosis: thrombus Interval history: Pt awake alert, denies, fever, chills, n/v/d Objective - Vital Signs Vital signs: Vital Signs - 12hr 12/09/18 12/09/18 12/09/18 06:00 06:20 06:21 Temperature Pulse Rate 75 75 75 Pulse Rate [ From Monitor] Respiratory 40 H Rate Blood Pressure 107/69 92/65 92/65 O2 Sat by Pulse 98 Oximetry 12/09/18 12/09/18 12/09/18 07:00 08:00 09:00 Temperature 97.7 F Pulse Rate 73 73 76 Pulse Rate [ 73 From Monitor] Respiratory 29 H 29 H Rate Blood Pressure 101/63 92/65 O2 Sat by Pulse 96 99 Oximetry 12/09/18 12/09/18 12/09/18 09:01 09:44 10:01 Temperature Pulse Rate 87 84 85 Pulse Rate [ From Monitor] Respiratory 20 41 H Rate Blood Pressure 124/85 124/85 122/72 O2 Sat by Pulse 99 99 Oximetry 12/09/18 12/09/18 12/09/18 11:00 12:00 12:10 Temperature 97.8 F Pulse Rate 83 83 84 Pulse Rate [ From Monitor] Respiratory 41 H 38 H 39 H Rate Blood Pressure 107/68 94/73 122/72 O2 Sat by Pulse 99 99 98 Oximetry 12/09/18 12/09/18 12/09/18 12:21 12:55 13:05 Temperature 98.5 F Pulse Rate 87 71 Pulse Rate [ From Monitor] Respiratory 39 H 22 Rate Blood Pressure 94/73 115/80 94/73 O2 Sat by Pulse 98 99 Oximetry 12/09/18 12/09/18 12/09/18 13:10 13:20 14:18 Temperature Pulse Rate Pulse Rate [ From Monitor] Respiratory Rate Blood Pressure 94/73 94/73 94/73 O2 Sat by Pulse Oximetry - General Appearance General appearance: well-developed, well-nourished, appears stated age, obese EENT: ATNC, PERRL, mucous membranes moist Neck: no JVD Respiratory: Present: Clear to Ascultation Cardiology: regular, S1S2 Gastrointestinal: normoactive bowel sounds, obese Integumentary: no rash, other (no edema ) Neurologic: no focal deficit, alert and oriented x3, strength 5/5, CN 3-12 intact Psychiatric: mood/affect appropriate, cooperative - Lab 12/09/18 05:25 12/09/18 05:25 Most recent lab results ABG pH 7.414 pH Units (7.350-7.450) 11/28/18 01:01 ABG pCO2 48.8 mm Hg 11/28/18 01:01 ABG pO2 65.7 mm Hg (80.0-90.0) L 11/28/18 01:01 ABG HCO3 30.5 mmol/L (20.0-26.0) H 11/28/18 01:01 ABG O2 Saturation 91.3 % (95.0-99.0) L 11/28/18 01:01 Calcium 8.8 mg/dL (8.4-10.2) 12/09/18 05:25 Phosphorus 3.30 mg/dL (2.5-4.5) 11/30/18 07:18 Magnesium 3.20 mg/dL (1.7-2.3) H 11/30/18 07:18 117.4 mg/dL (0.1-20.0) H 11/29/18 13:40 53 mmol/L 11/29/18 13:40 120 mg/dL (5-11.8) H 11/29/18 13:40 Medications & Allergies - Medications Allergies/Adverse Reactions: Allergies lisinopril Adverse Reaction (Severe, Verified 12/17/13 19:00) SORE THROAT;PERSISTENT COUGH Home Medications: Home Medications Medication Instructions Recorded Confirmed Last Taken Type Aspirin [Aspirin BABY CHEW TAB] 81 mg PO QDAY 11/28/18 11/29/18 11/26/18 History Fluticasone [Flonase] 1 spray NS BID 11/28/18 11/28/18 Unknown History Furosemide [Lasix TAB] 40 mg PO BID 11/28/18 11/28/18 Unknown History Ibuprofen [Motrin] 600 mg PO Q6H PRN 11/28/18 11/28/18 Unknown History Montelukast [Singulair] 10 mg PO QPM 11/28/18 11/28/18 Unknown History Mycophenolate [Cellcept] 500 mg PO BID 11/28/18 11/28/18 Unknown History Mycophenolate [Cellcept] 500 mg PO BID PRN MDD 2 TABS 11/28/18 11/28/18 Unknown History Pantoprazole [Protonix] 40 mg PO QDAY 11/28/18 11/28/18 Unknown History Sacubitril/Valsartan [Entresto 1 each PO BID 11/28/18 11/28/18 Unknown History 49-51 mg] predniSONE [Deltasone] 50 mg PO QDAY 11/28/18 11/28/18 Unknown History raNITIdine HCl [Zantac] 150 mg PO BID 11/28/18 11/28/18 Unknown History Amitriptyline [Elavil] 25 mg PO HS 11/29/18 11/29/18 11/26/18 History Aspirin [Adult Aspirin] 81 mg PO ONCE 11/29/18 11/29/18 11/26/18 History Entresto 49-51 mg 49 mg PO BID 11/29/18 11/29/18 11/26/18 History HYDROcodone/APAP 5-325 5 mg PO Q6HR PRN 11/29/18 11/29/18 Unknown History Active Medications: Generic Name Dose Route Start Last Admin Trade Name Freq PRN Reason Stop Dose Admin Acetaminophen 650 mg 11/28/18 03:02 Tylenol PO Q4H PRN Pain MILD(1-3)/Fever >100.5/TURPIN Alprazolam 0.25 mg 11/30/18 01:09 12/06/18 20:47 Xanax PO 0.25 mg Q8H PRN Administration Anxiety Amiodarone HCl 200 mg 12/02/18 12:00 12/09/18 09:41 Cordarone PO 200 mg BID VIOLA Administration Amitriptyline HCl 25 mg 11/29/18 22:00 12/08/18 22:26 Elavil PO 25 mg HS VIOLA Administration Aspirin 81 mg 11/29/18 10:00 12/09/18 09:42 Baby Aspirin PO 81 mg QDAY VIOLA Administration Dextrose 0 ml 11/28/18 02:19 D50w (25gm) Syringe IV PRN PRN Hypoglycemia Fluticasone Propionate 50 mcg 11/29/18 10:00 12/09/18 09:43 Flonase NS 50 mcg BID VIOLA Administration Hydralazine HCl 10 mg 11/28/18 03:41 Apresoline IV Q6HR PRN Blood Pressure Hydrophilic Ointment 1 applic 11/30/18 11:55 Vaseline Lip Therapy TP DIRECT PRN DRY LIPS Sodium Chloride 1,000 mls @ 125 mls/hr 12/02/18 13:00 12/03/18 11:24 Nacl 0.9% 1000 Ml IV 0 mls/hr DIRECT VIOLA Infusion Heparin Sodium/Sodium Chloride 25,000 unit in 500 mls @ 27 mls/hr 12/07/18 12:00 12/08/18 07:21 Heparin/ 0.45% Nacl-25,000 Unit/500 Ml IV 1,350 units/hr TITR VIOLA 27 mls/hr Administration Protocol 1,350 UNITS/HR Insulin Human Isoph/Insulin Regular 20 unit 12/07/18 08:30 12/09/18 08:53 Humulin 70/30 SUB-Q 20 unit BIDDIAB VIOLA Administration Insulin Human Lispro 0 unit 11/30/18 09:00 12/09/18 11:57 Humalog SUB-Q 4 unit ACHS VIOLA Administration Protocol Metoprolol Tartrate 25 mg 11/30/18 14:00 12/09/18 14:18 Lopressor PO Not Given Q8HR VIOLA Montelukast Sodium 10 mg 11/29/18 18:00 12/08/18 17:17 Singulair PO 10 mg QPM VIOLA Administration Morphine Sulfate 2 mg 11/28/18 03:02 12/07/18 23:08 Morphine IV 2 mg Q4H PRN Administration Pain, Moderate (4-6) Ondansetron HCl 4 mg 11/28/18 03:02 Zofran IV Q8H PRN Nausea And Vomiting Pantoprazole Sodium 40 mg 11/29/18 10:00 12/09/18 09:41 Protonix PO 40 mg QDAY VIOLA Administration Pentoxifylline 400 mg 11/29/18 13:00 12/09/18 09:40 Trental PO 400 mg Q12HR VIOLA Administration Prednisone 50 mg 11/29/18 10:00 12/09/18 09:41 Deltasone PO 50 mg QDAY VIOLA Administration Sodium Chloride 10 ml 11/28/18 10:00 12/09/18 09:43 Sodium Chloride Flush Syringe 10 Ml IV 10 ml BID VIOLA Administration Sodium Chloride 10 ml 11/28/18 03:02 Sodium Chloride Flush Syringe 10 Ml IV PRN PRN LINE FLUSH
[2018-12-09] MEDS: SINGULAIR PO SCH (17:37)
[2018-12-09] MEDS: ELAVIL PO SCH (21:24)
[2018-12-10] MEDS: LOPRESSOR PO SCH (06:20)
--- NOTE | 2018-12-10 07:09 | Hem/Onc Progress Note ---
Assessment and Plan Peripheral extremities both lower and left upper extremity thromboembolic disease. This may be related to her generalized disease etiology versus rheumatology issue versus embolic phenomena. There was a question if this is HIT. However, the platelet count is not low. HIT test Negative 1. h/o Elevated bilirubin. 2. h/o Electrolyte imbalance. 3. Arterial thrombus, on anticoagulation. 4. h/o Diabetic ketoacidosis. 5. h/o Hypertension. 6. h/o Ischemic cardiomyopathy with low ejection fraction. 7. h/o Respiratory failure. 8. h/o Sepsis, elevated troponin /CPK. I will follow the patient during inpatient stay and then in the clinic setting. The cause of thromboembolism is not clear. echo done RODNEY Done HIT negative high hct likely sec to sleep apnea dark toes - with arterial thrombus HIT neg - was on IV heparin - held due to bleeding issues note mentions - that this will be restarted there is a question if her signs and symptoms are sec to rheumatology issues vascular team and sx team to decide timing for any procedure - till then heparin is better as it can be reversed for any procedure - Patient Problems (1) Ischemia Current Visit: Yes Status: Acute Subjective Date of service: 12/10/18 Principal diagnosis: ischemic extremities Interval history: transferred to [facility] [place] floor Objective - Exam Narrative Exam: Pain - hand and leg General appearance pain Performance status limited self care Eyes - no icterus ENT - no bleeding LNs cervical not palpable Neck - no LN Respiratory Normal Breath sounds - CTA CVS S1 S2 + Extremities cold toes and dark left hand finger General GI Soft Rectal deferred female - deferred Skin warm Musculoskeletal moving extremitites - dark foot and left hand finger Neurologically awake - Constitutional Vitals: Last Vital Signs Temp 98.0 F 12/10/18 05:40 Pulse 69 12/10/18 05:40 Resp 16 12/10/18 05:40 BP 112/64 12/10/18 06:20 Pulse Ox 97 12/10/18 05:40 - Labs Lab Results: Laboratory Results - last 24 hr 12/09/18 12/09/18 12/09/18 08:13 11:42 16:43 POC Glucose 188 H 265 H 298 H 12/09/18 21:46 POC Glucose 280 H Medications & Allergies - Medications Allergies/Adverse Reactions: Allergies lisinopril Adverse Reaction (Severe, Verified 12/17/13 19:00) SORE THROAT;PERSISTENT COUGH Home Medications: Home Medications Medication Instructions Recorded Confirmed Last Taken Type Aspirin [Aspirin BABY CHEW TAB] 81 mg PO QDAY 11/28/18 11/29/18 11/26/18 History Fluticasone [Flonase] 1 spray NS BID 11/28/18 11/28/18 Unknown History Furosemide [Lasix TAB] 40 mg PO BID 11/28/18 11/28/18 Unknown History Ibuprofen [Motrin] 600 mg PO Q6H PRN 11/28/18 11/28/18 Unknown History Montelukast [Singulair] 10 mg PO QPM 11/28/18 11/28/18 Unknown History Mycophenolate [Cellcept] 500 mg PO BID 11/28/18 11/28/18 Unknown History Mycophenolate [Cellcept] 500 mg PO BID PRN MDD 2 TABS 11/28/18 11/28/18 Unknown History Pantoprazole [Protonix] 40 mg PO QDAY 11/28/18 11/28/18 Unknown History Sacubitril/Valsartan [Entresto 1 each PO BID 11/28/18 11/28/18 Unknown History 49-51 mg] predniSONE [Deltasone] 50 mg PO QDAY 11/28/18 11/28/18 Unknown History raNITIdine HCl [Zantac] 150 mg PO BID 11/28/18 11/28/18 Unknown History Amitriptyline [Elavil] 25 mg PO HS 11/29/18 11/29/18 11/26/18 History Aspirin [Adult Aspirin] 81 mg PO ONCE 11/29/18 11/29/18 11/26/18 History Entresto 49-51 mg 49 mg PO BID 11/29/18 11/29/18 11/26/18 History HYDROcodone/APAP 5-325 5 mg PO Q6HR PRN 11/29/18 11/29/18 Unknown History Active Medications: Generic Name Dose Route Start Last Admin Trade Name Freq PRN Reason Stop Dose Admin Acetaminophen 650 mg 11/28/18 03:02 Tylenol PO Q4H PRN Pain MILD(1-3)/Fever >100.5/TURPIN Alprazolam 0.25 mg 11/30/18 01:09 12/06/18 20:47 Xanax PO 0.25 mg Q8H PRN Administration Anxiety Amiodarone HCl 200 mg 12/02/18 12:00 12/09/18 22:03 Cordarone PO 200 mg BID VIOLA Administration Amitriptyline HCl 25 mg 11/29/18 22:00 12/09/18 21:24 Elavil PO 25 mg HS VIOLA Administration Aspirin 81 mg 11/29/18 10:00 12/09/18 09:42 Baby Aspirin PO 81 mg QDAY VIOLA Administration Dextrose 0 ml 11/28/18 02:19 D50w (25gm) Syringe IV PRN PRN Hypoglycemia Fluticasone Propionate 50 mcg 11/29/18 10:00 12/09/18 21:56 Flonase NS 50 mcg BID VIOLA Administration Hydralazine HCl 10 mg 11/28/18 03:41 Apresoline IV Q6HR PRN Blood Pressure Hydrophilic Ointment 1 applic 11/30/18 11:55 Vaseline Lip Therapy TP DIRECT PRN DRY LIPS Sodium Chloride 1,000 mls @ 125 mls/hr 12/02/18 13:00 12/03/18 11:24 Nacl 0.9% 1000 Ml IV 0 mls/hr DIRECT VIOLA Infusion Heparin Sodium/Sodium Chloride 25,000 unit in 500 mls @ 27 mls/hr 12/07/18 12:00 12/08/18 07:21 Heparin/ 0.45% Nacl-25,000 Unit/500 Ml IV 1,350 units/hr TITR VIOLA 27 mls/hr Administration Protocol 1,350 UNITS/HR Insulin Human Isoph/Insulin Regular 20 unit 12/07/18 08:30 12/09/18 17:36 Humulin 70/30 SUB-Q 20 unit BIDDIAB VIOLA Administration Insulin Human Lispro 0 unit 11/30/18 09:00 12/09/18 21:53 Humalog SUB-Q 4 unit ACHS VIOLA Administration Protocol Metoprolol Tartrate 25 mg 11/30/18 14:00 12/10/18 06:20 Lopressor PO 25 mg Q8HR VIOLA Administration Montelukast Sodium 10 mg 11/29/18 18:00 12/09/18 17:37 Singulair PO 10 mg QPM VIOLA Administration Morphine Sulfate 2 mg 11/28/18 03:02 12/07/18 23:08 Morphine IV 2 mg Q4H PRN Administration Pain, Moderate (4-6) Ondansetron HCl 4 mg 11/28/18 03:02 Zofran IV Q8H PRN Nausea And Vomiting Pantoprazole Sodium 40 mg 11/29/18 10:00 12/09/18 09:41 Protonix PO 40 mg QDAY VIOLA Administration Pentoxifylline 400 mg 11/29/18 13:00 12/09/18 21:24 Trental PO 400 mg Q12HR VIOLA Administration Prednisone 50 mg 11/29/18 10:00 12/09/18 09:41 Deltasone PO 50 mg QDAY VIOLA Administration Sodium Chloride 10 ml 11/28/18 10:00 12/09/18 21:25 Sodium Chloride Flush Syringe 10 Ml IV 10 ml BID VIOLA Administration Sodium Chloride 10 ml 11/28/18 03:02 Sodium Chloride Flush Syringe 10 Ml IV PRN PRN LINE FLUSH
[2018-12-10] MEDS: HumaLOG SUB-Q SCH ×4 (07:30→22:10)
[2018-12-10] MEDS: FLONASE NS SCH ×2 (09:47→21:25)
[2018-12-10] MEDS: CORDARONE PO SCH ×2 (09:47→21:31)
[2018-12-10] MEDS: PROTONIX PO SCH (09:48)
[2018-12-10] MEDS: TRENTAL PO SCH ×2 (09:48→21:26)
[2018-12-10] MEDS: ENTRESTO 49-51 MG PO SCH ×2 (09:48→22:11)
[2018-12-10] MEDS: BABY ASPIRIN PO SCH (09:48)
[2018-12-10] MEDS: DELTASONE PO SCH (09:49)
[2018-12-10] MEDS: SODIUM CHLORIDE FLUSH SYRINGE 10 ML IV SCH ×2 (09:50→21:29)
--- NOTE | 2018-12-10 09:52 | Progress Note ---
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 Decreased left ventricular systolic function 20-25%. RODNEY reports a small mobile echogenic density noted on the PM wire on the RA side - this is likely a small thrombus given negative blood cultures. This is on the right side of the heart and therefore has nothing to do with her upper extremity process. Typically we recommend systemic anticoagulation for 3 months then re- imaging to document resolution of the small clot. Plan: Continue amiodarone and beta blockers for suppression of arrhythmias. Otherwise, conservative cardiac management. Subjective Date of service: 12/10/18 Principal diagnosis: ischemic extremities Interval history: Patient is awake and alert, comfortable in bed. No acute distress noted. Normal sinus rhythm on telemetry. No cardiac events overnight. Objective Vital Signs Temp Pulse Resp BP Pulse Ox 12/10/18 09:30 95 12/10/18 06:20 112/64 12/10/18 05:40 98.0 F 69 16 112/64 97 12/09/18 23:48 98.0 F 77 16 118/71 98 12/09/18 20:28 97.9 F 90 18 127/72 100 12/09/18 16:35 97.8 F 83 24 120/78 97 12/09/18 14:51 99 H 16 94/73 100 12/09/18 14:41 98 H 17 157/63 100 12/09/18 14:33 99 H 99 12/09/18 14:18 94/73 12/09/18 13:20 94/73 12/09/18 13:10 94/73 12/09/18 13:05 94/73 12/09/18 12:55 98.5 F 71 22 115/80 99 12/09/18 12:21 87 39 H 94/73 98 12/09/18 12:10 84 39 H 122/72 98 12/09/18 12:00 97.8 F 83 38 H 94/73 99 12/09/18 11:00 83 41 H 107/68 99 12/09/18 10:01 85 41 H 122/72 99 - Physical Examination General: No Apparent Distress HEENT: Positive: PERRL Neck: Positive: trachea midline Cardiac: Positive: Reg Rate and Rhythm Lungs: Positive: Decreased Breath Sounds Neuro: Positive: Grossly Intact Abdomen: Positive: Soft Extremities: Absent: edema
[2018-12-10] MEDS: TYLENOL PO PRN (10:11)
--- NOTE | 2018-12-10 12:22 | Gastroenterology Consultation ---
History of Present Illness - Reason for Consult Consult date: 12/10/18 GI Bleed Requesting physician: JA BELL - History of Present Illness This is a Pleasant 38-year-old female with a complicated recent hospitalization in brief with recent newly diagnosed diabetes systemic scleroderma with severe cardiomyopathy with defibrillator runs of V. tach and V. fib, development of cyanotic extremities and now on heparin drip, now with rectal bleeding. Patient reports never having had endoscopic evaluation the past denies any history of gastrointestinal bleeding in the past that she does have note reports that she is on her menstrual cycle currently. She reports having a total of approximately 3 bowel movements with blood in them she reports the volume of blood was about the same as what she sees when she is on her menstrual cycle. She denies abdominal pain and she reports not having had any bowel movements and no blood since yesterday. Hemoglobin yesterday was stable. From today is pending as of this morning. Past History Past Medical History: arthritis, GERD, hypertension, other (non-ischemic cardiomyopathy status post AICD placement) Past Surgical History: Other (cholecystectomy, AICD placement, back surgery) Social history: no significant social history (no reported history of tobacco, alcohol or illicit drug use) Family history: other (could not be obtained due to altered mental status) Medications and Allergies Allergies Allergy/AdvReac Type Severity Reaction Status Date / Time lisinopril AdvReac Severe SORE Verified 12/17/13 19:00 THROAT;PERSISTENT COUGH Home Medications Medication Instructions Recorded Confirmed Last Taken Type Aspirin [Aspirin BABY CHEW TAB] 81 mg PO QDAY 11/28/18 11/29/18 11/26/18 History Fluticasone [Flonase] 1 spray NS BID 11/28/18 11/28/18 Unknown History Furosemide [Lasix TAB] 40 mg PO BID 11/28/18 11/28/18 Unknown History Ibuprofen [Motrin] 600 mg PO Q6H PRN 11/28/18 11/28/18 Unknown History Montelukast [Singulair] 10 mg PO QPM 11/28/18 11/28/18 Unknown History Mycophenolate [Cellcept] 500 mg PO BID 11/28/18 11/28/18 Unknown History Mycophenolate [Cellcept] 500 mg PO BID PRN MDD 2 TABS 11/28/18 11/28/18 Unknown History Pantoprazole [Protonix] 40 mg PO QDAY 11/28/18 11/28/18 Unknown History Sacubitril/Valsartan [Entresto 1 each PO BID 11/28/18 11/28/18 Unknown History 49-51 mg] predniSONE [Deltasone] 50 mg PO QDAY 11/28/18 11/28/18 Unknown History raNITIdine HCl [Zantac] 150 mg PO BID 11/28/18 11/28/18 Unknown History Amitriptyline [Elavil] 25 mg PO HS 11/29/18 11/29/18 11/26/18 History Aspirin [Adult Aspirin] 81 mg PO ONCE 11/29/18 11/29/18 11/26/18 History Entresto 49-51 mg 49 mg PO BID 11/29/18 11/29/18 11/26/18 History HYDROcodone/APAP 5-325 5 mg PO Q6HR PRN 11/29/18 11/29/18 Unknown History Active Meds: Active Medications Acetaminophen (Tylenol) 650 mg PO Q4H PRN PRN Reason: Pain MILD(1-3)/Fever >100.5/TURPIN Last Admin: 12/10/18 10:11 Dose: 650 mg Documented by: Alprazolam (Xanax) 0.25 mg PO Q8H PRN PRN Reason: Anxiety Last Admin: 12/06/18 20:47 Dose: 0.25 mg Documented by: Amiodarone HCl (Cordarone) 200 mg PO BID [facility] Last Admin: 12/10/18 09:47 Dose: 200 mg Documented by: Amitriptyline HCl (Elavil) 25 mg PO [facility] Last Admin: 12/09/18 21:24 Dose: 25 mg Documented by: Aspirin (Baby Aspirin) 81 mg PO QDAY [facility] Last Admin: 12/10/18 09:48 Dose: 81 mg Documented by: Dextrose (D50w (25gm) Syringe) 0 ml IV PRN PRN PRN Reason: Hypoglycemia Fluticasone Propionate (Flonase) 50 mcg NS BID [facility] Last Admin: 12/10/18 09:47 Dose: 50 mcg Documented by: Hydralazine HCl (Apresoline) 10 mg IV Q6HR PRN PRN Reason: Blood Pressure Hydrophilic Ointment (Vaseline Lip Therapy) 1 applic TP DIRECT PRN PRN Reason: DRY LIPS Sodium Chloride (Nacl 0.9% 1000 Ml) 1,000 mls @ 125 mls/hr IV DIRECT [facility] Last Infusion: 12/03/18 11:24 Dose: 0 mls/hr Documented by: Heparin Sodium/Sodium Chloride (Heparin/ 0.45% Nacl-25,000 Unit/500 Ml) 25,000 unit in 500 mls @ 27 mls/hr IV TITR [facility]; Protocol Last Titration: 12/10/18 08:01 Dose: Infused Documented by: Insulin Human Isoph/Insulin Regular (Humulin 70/30) 24 unit SUB-Q BIDDIAB [facility] Last Admin: 12/10/18 09:00 Dose: 24 unit Documented by: Insulin Human Lispro (Humalog) 0 unit SUB-Q ACHS [facility]; Protocol Last Admin: 12/10/18 07:30 Dose: 4 unit Documented by: Metoprolol Succinate (Toprol Xl) 50 mg PO QDAY [facility] Montelukast Sodium (Singulair) 10 mg PO QPM [facility] Last Admin: 12/09/18 17:37 Dose: 10 mg Documented by: Morphine Sulfate (Morphine) 2 mg IV Q4H PRN PRN Reason: Pain, Moderate (4-6) Last Admin: 12/07/18 23:08 Dose: 2 mg Documented by: Ondansetron HCl (Zofran) 4 mg IV Q8H PRN PRN Reason: Nausea And Vomiting Pantoprazole Sodium (Protonix) 40 mg PO QDAY [facility] Last Admin: 12/10/18 09:48 Dose: 40 mg Documented by: Pentoxifylline (Trental) 400 mg PO Q12HR [facility] Last Admin: 12/10/18 09:48 Dose: 400 mg Documented by: Prednisone (Deltasone) 50 mg PO QDAY [facility] Last Admin: 12/10/18 09:49 Dose: 50 mg Documented by: Sodium Chloride (Sodium Chloride Flush Syringe 10 Ml) 10 ml IV BID [facility] Last Admin: 12/10/18 09:50 Dose: 10 ml Documented by: Sodium Chloride (Sodium Chloride Flush Syringe 10 Ml) 10 ml IV PRN PRN PRN Reason: LINE FLUSH Review of Systems - Review of Systems All systems: negative (b/l leg changes, sob, weakness, fatigue) Exam - Constitutional Vital Signs: Temp Pulse Resp BP Pulse Ox 98.0 F 69 16 112/64 95 12/10/18 05:40 12/10/18 05:40 12/10/18 05:40 12/10/18 06:20 12/10/18 09:30 General appearance: no acute distress - EENT ENT: hearing intact - Neck Neck: supple - Respiratory Respiratory effort: normal - Cardiovascular Rhythm: regular Extremity abnormal: other (b/l distal LE with blackening of the distal extremity) - Gastrointestinal General gastrointestinal: Present: soft - Integumentary Integumentary: Present: dry - Neurologic Neurological: alert and oriented x3 - Psychiatric Psychiatric: appropriate mood/affect - Labs CBC & Chem 7: 12/09/18 05:25 12/09/18 05:25 Lab Results: Laboratory Results - last 24 hr 12/09/18 12/09/18 12/10/18 16:43 21:46 08:23 POC Glucose 298 H 280 H 228 H Assessment and Plan Discussed the case over the phone with cardiology last night, given patient is at significantly increased risk for complications from procedures and hemoglobin has not significantly dropped, and patient is not actively bleeding, recommend careful clinical monitoring but will not pursue colonoscopy at this juncture. Therefore, if the patient has no more clinical bleeding and hemoglobin remained stable, she may just follow-up with us as an outpatient. If she has large- volume overt bleeding and has significant drop in hemoglobin, please call us back and we will reevaluate for possible endoscopic evaluation - Patient Problems (1) Rectal bleeding Current Visit: Yes Status: Acute
[2018-12-10] MEDS: TOPROL XL PO SCH (13:07)
--- NOTE | 2018-12-10 14:39 | Progress Note ---
Assessment and Plan - Patient Problems (1) Acute kidney injury Current Visit: Yes Status: Acute Plan to address problem: Suspect Pre-renal azotemia vs Acute tubular necrosis secondary to hypotension. Kidney function normalized. will sign off (2) Hypotension Current Visit: Yes Status: Acute Plan to address problem: Blood pressure has improved. Follow-up blood pressure (3) Hyperkalemia Current Visit: Yes Status: Acute Plan to address problem: Hyperkalemia on presentation improved with medical management. Follow-up electrolytes (4) Hypernatremia Current Visit: Yes Status: Acute Plan to address problem: Hypernatremia secondary to free water losses. now resolved (5) Acrocyanosis Current Visit: Yes Status: Acute Plan to address problem: Etiology uncertain. May be related to scleroderma. Arterial Duplex shows that Diffuse peripheral vascular disease in both lower extremities with occlusive disease of the left anterior tibial and dorsalis pedis arteries. Distal disease in the left hand. 1. RODNEY showed no Thrombus. 2. Vascular input appreciated: Possible severe vasospasm the setting of scleroderma superimposed on baseline peripheral vascular disease. HIT Ab negative (6) Hyperosmolar hyperglycemic coma due to diabetes mellitus without ketoacidosis Current Visit: Yes Status: Acute Plan to address problem: Steroid induced hyperglycemia/newly diagnosed type 2 diabetes mellitus. Blood sugar control by primary attending (7) Heart failure with reduced ejection fraction Current Visit: Yes Status: Acute Plan to address problem: Intravenous fluids stopped. Monitor volume status. (8) Transaminasemia Current Visit: Yes Status: Acute Plan to address problem: Probable ischemic hepatitis. Follow-up liver function tests Subjective Date of service: 12/10/18 Principal diagnosis: ischemic extremities Interval history: Pt awake alert, denies, fever, chills, n/v/d Objective - Vital Signs Vital signs: Vital Signs - 12hr 12/10/18 12/10/18 12/10/18 05:40 06:20 09:30 Temperature 98.0 F Pulse Rate 69 Respiratory 16 Rate Blood Pressure 112/64 112/64 O2 Sat by Pulse 97 95 Oximetry 12/10/18 13:07 Temperature Pulse Rate 69 Respiratory Rate Blood Pressure 118/59 O2 Sat by Pulse Oximetry - General Appearance General appearance: well-developed, well-nourished, appears stated age, obese EENT: ATNC, PERRL, mucous membranes moist Neck: no JVD Respiratory: Present: Clear to Ascultation Cardiology: regular, S1S2 Gastrointestinal: normoactive bowel sounds, obese Integumentary: no rash, other (trace edema ) Neurologic: no focal deficit, alert and oriented x3, strength 5/5, CN 3-12 intact Psychiatric: mood/affect appropriate, cooperative - Lab 12/09/18 05:25 12/09/18 05:25 Most recent lab results ABG pH 7.414 pH Units (7.350-7.450) 11/28/18 01:01 ABG pCO2 48.8 mm Hg 11/28/18 01:01 ABG pO2 65.7 mm Hg (80.0-90.0) L 11/28/18 01:01 ABG HCO3 30.5 mmol/L (20.0-26.0) H 11/28/18 01:01 ABG O2 Saturation 91.3 % (95.0-99.0) L 11/28/18 01:01 Calcium 8.8 mg/dL (8.4-10.2) 12/09/18 05:25 Phosphorus 3.30 mg/dL (2.5-4.5) 11/30/18 07:18 Magnesium 3.20 mg/dL (1.7-2.3) H 11/30/18 07:18 117.4 mg/dL (0.1-20.0) H 11/29/18 13:40 53 mmol/L 11/29/18 13:40 120 mg/dL (5-11.8) H 11/29/18 13:40 Medications & Allergies - Medications Allergies/Adverse Reactions: Allergies lisinopril Adverse Reaction (Severe, Verified 12/17/13 19:00) SORE THROAT;PERSISTENT COUGH Home Medications: Home Medications Medication Instructions Recorded Confirmed Last Taken Type Aspirin [Aspirin BABY CHEW TAB] 81 mg PO QDAY 11/28/18 11/29/18 11/26/18 History Fluticasone [Flonase] 1 spray NS BID 11/28/18 11/28/18 Unknown History Furosemide [Lasix TAB] 40 mg PO BID 11/28/18 11/28/18 Unknown History Ibuprofen [Motrin] 600 mg PO Q6H PRN 11/28/18 11/28/18 Unknown History Montelukast [Singulair] 10 mg PO QPM 11/28/18 11/28/18 Unknown History Mycophenolate [Cellcept] 500 mg PO BID 11/28/18 11/28/18 Unknown History Mycophenolate [Cellcept] 500 mg PO BID PRN MDD 2 TABS 11/28/18 11/28/18 Unknown History Pantoprazole [Protonix] 40 mg PO QDAY 11/28/18 11/28/18 Unknown History Sacubitril/Valsartan [Entresto 1 each PO BID 11/28/18 11/28/18 Unknown History 49-51 mg] predniSONE [Deltasone] 50 mg PO QDAY 11/28/18 11/28/18 Unknown History raNITIdine HCl [Zantac] 150 mg PO BID 11/28/18 11/28/18 Unknown History Amitriptyline [Elavil] 25 mg PO HS 11/29/18 11/29/18 11/26/18 History Aspirin [Adult Aspirin] 81 mg PO ONCE 11/29/18 11/29/18 11/26/18 History Entresto 49-51 mg 49 mg PO BID 11/29/18 11/29/18 11/26/18 History HYDROcodone/APAP 5-325 5 mg PO Q6HR PRN 11/29/18 11/29/18 Unknown History Active Medications: Generic Name Dose Route Start Last Admin Trade Name Terrence PRN Reason Stop Dose Admin Acetaminophen 650 mg 11/28/18 03:02 12/10/18 10:11 Tylenol PO 650 mg Q4H PRN Administration Pain MILD(1-3)/Fever >100.5/TURPIN Alprazolam 0.25 mg 11/30/18 01:09 12/06/18 20:47 Xanax PO 0.25 mg Q8H PRN Administration Anxiety Amiodarone HCl 200 mg 12/02/18 12:00 12/10/18 09:47 Cordarone PO 200 mg BID [facility] Administration Amitriptyline HCl 25 mg 11/29/18 22:00 12/09/18 21:24 Elavil PO 25 mg HS [facility] Administration Aspirin 81 mg 11/29/18 10:00 12/10/18 09:48 Baby Aspirin PO 81 mg QDAY [facility] Administration Dextrose 0 ml 11/28/18 02:19 D50w (25gm) Syringe IV PRN PRN Hypoglycemia Fluticasone Propionate 50 mcg 11/29/18 10:00 12/10/18 09:47 Flonase NS 50 mcg BID [facility] Administration Hydralazine HCl 10 mg 11/28/18 03:41 Apresoline IV Q6HR PRN Blood Pressure Hydrophilic Ointment 1 applic 11/30/18 11:55 Vaseline Lip Therapy TP DIRECT PRN DRY LIPS Sodium Chloride 1,000 mls @ 125 mls/hr 12/02/18 13:00 12/03/18 11:24 Nacl 0.9% 1000 Ml IV 0 mls/hr DIRECT [facility] Infusion Heparin Sodium/Sodium Chloride 25,000 unit in 500 mls @ 27 mls/hr 12/07/18 12:00 12/10/18 08:01 Heparin/ 0.45% Nacl-25,000 Unit/500 Ml IV Infused TITR [facility] Titration Protocol 1,350 UNITS/HR Insulin Human Isoph/Insulin Regular 24 unit 12/10/18 09:00 12/10/18 09:00 Humulin 70/30 SUB-Q 24 unit BIDDIAB [facility] Administration Insulin Human Lispro 0 unit 11/30/18 09:00 12/10/18 11:30 Humalog SUB-Q 4 unit ACHS [facility] Administration Protocol Metoprolol Succinate 50 mg 12/10/18 12:00 12/10/18 13:07 Toprol Xl PO 50 mg QDAY [facility] Administration Montelukast Sodium 10 mg 11/29/18 18:00 12/09/18 17:37 Singulair PO 10 mg QPM [facility] Administration Morphine Sulfate 2 mg 11/28/18 03:02 12/07/18 23:08 Morphine IV 2 mg Q4H PRN Administration Pain, Moderate (4-6) Ondansetron HCl 4 mg 11/28/18 03:02 Zofran IV Q8H PRN Nausea And Vomiting Pantoprazole Sodium 40 mg 11/29/18 10:00 12/10/18 09:48 Protonix PO 40 mg QDAY [facility] Administration Pentoxifylline 400 mg 11/29/18 13:00 12/10/18 09:48 Trental PO 400 mg Q12HR [facility] Administration Prednisone 50 mg 11/29/18 10:00 12/10/18 09:49 Deltasone PO 50 mg QDAY [facility] Administration Sodium Chloride 10 ml 11/28/18 10:00 12/10/18 09:50 Sodium Chloride Flush Syringe 10 Ml IV 10 ml BID [facility] Administration Sodium Chloride 10 ml 11/28/18 03:02 Sodium Chloride Flush Syringe 10 Ml IV PRN PRN LINE FLUSH
[2018-12-10] MEDS: HEPARIN/ 0.45% NACL-25,000 UNIT/500 ML 25,000 UNIT/500 ML BAG IV SCH (17:11)
[2018-12-10] MEDS: SINGULAIR PO SCH (17:23)
--- NOTE | 2018-12-10 18:42 | Progress Note ---
Assessment and Plan Assessment and plan: 38-year-old female patient with history of scleroderma severe cardiomyopathy history of V. fib V. tach runs status post ICD and recently started on CellCept 2 weeks ago developed bilateral lower extremity ischemia with the development of cyanotic bilateral feet and cyanotic left upper extremity left middle digit.Vascular, hematology oncologist evaluated the patient, started on heparin drip. Had brief episode of GI bleeding, GI evaluated the patient, since patient did not have new episodes of GI bleeding, advised to continue heparin drip and closely monitor H&H and new episodes of bleeding.. Orthopedic has evaluated the patient and is planning surgery once the demarcation of ischemia is clear --Ischemic lower > upper extremity. Vasc Surgery following, Dr. Hernandez, On heparin drip HIT panel -negative, F/U labs for vasculitis--CRP, sedimentation rate, anti-Ro, anti-la, anti-Maritza 1, AMA, ANCA, rheumatoid factor. Anti-ccp --GI bleeding/epistaxis/vaginal bleeding; Discussed with GI, advised to continue heparin, If patient has severe bleeding or significant drop in H&H will consider holding heparin --Hyperosmolar hyperglycemic state (HHS) in a newly diagnosed Diabetes-new onset Patient was admitted to the ICU on insulin drip, now off Insulin drip Continue serial BMP level monitoring, Cont. Novolin 70/30 --Diabetes mellitus type 2-new onset --Sepsis: CT abd/pelvis showed generalized bronchiectasis Blood cultures no growth --Vtach s/p shocked 8 tiemes by AICD, as per interrogation, notes in paper chart Cont. Amiodarone cardiology following, b-ernesto added RODNEY planned for Thursday --Metabolic encephalopathy, resolved Head CT scan negative We'll monitor clinically --Acute hypoxic respiratory failure. O2 and BiPAP as clinically indicated. --CATRACHO Continue CPAP during sleep and when necessary. --Interstitial lung disease. Continue per pulmonary. --Systemic sclerosis --Elevated troponin; nonspecific supportive care --EDGARDO; Probably vasomotor nephropathy due to dehydration Resolved --Abnormal LFT Probably due to acute process -CT abd/pelvis negative for liver pathology -We'll monitor levels --Hypertension Stable,On PRN hydralazine Cardiomyopathy with EF of 20-25% -Status post AICD placement -No acute exacerbation GERD -On famotidine Severe malnutrition/hypoalbuminemia: Nutriyion consult DVT prophylaxis with heparin Partient has systemic sclerosis, sees a Regional Climate Change Analyst Was on Cellcept, but I did not resume because it may cause thrombosis Full code status Stable to be transferred out of [facility] to medical floor Disposition; follow consult and recommendations History Interval history: Patient seen and examined medical records reviewed Patient has not had episodes of bleeding H&H stable, patient complains of some pain in the lower extremities Alert awake oriented vital signs stable On heparin drip Hospitalist Physical - Constitutional Vitals: Temp Pulse Resp BP Pulse Ox 98.0 F 69 16 118/59 95 12/10/18 05:40 12/10/18 13:07 12/10/18 05:40 12/10/18 13:07 12/10/18 09:30 General appearance: Present: no acute distress, well-nourished, obese - EENT Eyes: Present: PERRL, EOM intact - Neck Neck: Present: supple, normal ROM - Respiratory Respiratory effort: normal Respiratory: bilateral: diminished, negative: rales, rhonchi, wheezing - Cardiovascular Rhythm: regular Heart Sounds: Present: S1 & S2 - Extremities Extremities: abnormal (cyanosis of bilateral feet and toes, cyanosis of left middle finger) Extremity abnormal: black (discoloration bilateral feet and toes), other (ischemia) - Abdominal General gastrointestinal: soft, non-tender, non-distended, normal bowel sounds - Integumentary Integumentary: Present: clear, warm - Psychiatric Psychiatric: appropriate mood/affect, cooperative - Neurologic Neurologic: CNII-XII intact, moves all extremities Results - Labs CBC & Chem 7: 12/09/18 05:25 12/09/18 05:25 Labs: Laboratory Last Values WBC 17.6 K/mm3 (4.5-11.0) H 12/07/18 09:00 RBC 5.56 M/mm3 (3.65-5.03) H 12/07/18 09:00 Hgb 14.5 gm/dl (10.1-14.3) H 12/09/18 05:25 Hct 43.4 % (30.3-42.9) H 12/09/18 05:25 MCV 85 fl (79-97) 12/07/18 09:00 MCH 28 pg (28-32) 12/07/18 09:00 MCHC 33 % (30-34) 12/07/18 09:00 RDW 19.1 % (13.2-15.2) H 12/07/18 09:00 Plt Count 271 K/mm3 (140-440) 12/09/18 05:25 Lymph % (Auto) 2.6 % (13.4-35.0) L 12/05/18 06:10 [place] % (Auto) 14.8 % (0.0-7.3) H 12/05/18 06:10 Eos % (Auto) 0.1 % (0.0-4.3) 12/05/18 06:10 Baso % (Auto) 0.3 % (0.0-1.8) 12/05/18 06:10 Lymph # 0.5 K/mm3 (1.2-5.4) L 12/05/18 06:10 [place] # 2.8 K/mm3 (0.0-0.8) H 12/05/18 06:10 Eos # 0.0 K/mm3 (0.0-0.4) 12/05/18 06:10 Baso # 0.1 K/mm3 (0.0-0.1) 12/05/18 06:10 Add Manual Diff Complete 12/07/18 09:00 Total Counted 100 12/07/18 09:00 Seg Neutrophils % 82.2 % (40.0-70.0) H 12/05/18 06:10 Seg Neuts % (Manual) 89.0 % (40.0-70.0) H 12/07/18 09:00 0 % 12/07/18 09:00 4.0 % (13.4-35.0) L 12/07/18 09:00 Reactive Lymphs % (Man) 0 % 12/07/18 09:00 6.0 % (0.0-7.3) 12/07/18 09:00 0 % (0.0-4.3) 12/07/18 09:00 0 % (0.0-1.8) 12/07/18 09:00 1.0 % 12/07/18 09:00 0 % 12/07/18 09:00 0 % 12/07/18 09:00 0 % 12/07/18 09:00 Nucleated RBC % Not Reportable 12/07/18 09:00 Seg Neutrophils # 15.5 K/mm3 (1.8-7.7) H 12/05/18 06:10 Seg Neutrophils # Man 15.7 K/mm3 (1.8-7.7) H 12/07/18 09:00 Band Neutrophils # 0.0 K/mm3 12/07/18 09:00 0.7 K/mm3 (1.2-5.4) L 12/07/18 09:00 Abs React Lymphs (Man) 0.0 K/mm3 12/07/18 09:00 1.1 K/mm3 (0.0-0.8) H 12/07/18 09:00 0.0 K/mm3 (0.0-0.4) 12/07/18 09:00 0.0 K/mm3 (0.0-0.1) 12/07/18 09:00 0.2 K/mm3 12/07/18 09:00 0.0 K/mm3 12/07/18 09:00 0.0 K/mm3 12/07/18 09:00 Blast Cells # 0.0 K/mm3 12/07/18 09:00 WBC Morphology Not Reportable 12/07/18 09:00 Hypersegmented Neuts Not Reportable 12/07/18 09:00 Hyposegmented Neuts Not Reportable 12/07/18 09:00 Hypogranular Neuts Not Reportable 12/07/18 09:00 Not Reportable 12/07/18 09:00 Not Reportable 12/07/18 09:00 Not Reportable 12/07/18 09:00 Not Reportable 12/07/18 09:00 Not Reportable 12/07/18 09:00 Not Reportable 12/07/18 09:00 Consistent w auto 12/07/18 09:00 Not Reportable 12/07/18 09:00 Plt Clumps, EDTA Not Reportable 12/07/18 09:00 Not Reportable 12/07/18 09:00 Not Reportable 12/07/18 09:00 Not Reportable 12/07/18 09:00 Plt Morphology Comment Not Reportable 12/07/18 09:00 RBC Morphology Not Reportable 12/07/18 09:00 Dimorphic RBCs Not Reportable 12/07/18 09:00 Few 12/07/18 09:00 Not Reportable 12/07/18 09:00 Not Reportable 12/07/18 09:00 1+ 12/07/18 09:00 Not Reportable 12/07/18 09:00 Not Reportable 12/07/18 09:00 Not Reportable 12/07/18 09:00 Not Reportable 12/07/18 09:00 Not Reportable 12/07/18 09:00 Not Reportable 12/07/18 09:00 Not Reportable 12/07/18 09:00 Not Reportable 12/07/18 09:00 Not Reportable 12/07/18 09:00 Not Reportable 12/07/18 09:00 Not Reportable 12/07/18 09:00 Not Reportable 12/07/18 09:00 Not Reportable 12/07/18 09:00 Not Reportable 12/07/18 09:00 Not Reportable 12/07/18 09:00 Acanthocytes (Spur) Not Reportable 12/07/18 09:00 Rouleaux Not Reportable 12/07/18 09:00 Not Reportable 12/07/18 09:00 Not Reportable 12/07/18 09:00 Not Reportable 12/07/18 09:00 ESR 1 mm/Hr (0-20) 12/03/18 14:33 Not Reportable 12/07/18 09:00 Hem Pathologist Commnt No 12/07/18 09:00 PT 13.4 Sec. (12.2-14.9) 12/09/18 05:25 INR 1.05 (0.87-1.13) 12/09/18 05:25 APTT 41.6 Sec. (24.2-36.6) H 12/07/18 09:00 Heparin Anti-Xa Level 0.10 U.I./ml (0.3-0.7) L 12/10/18 15:42 Heparin Anti-Xa, Unfract Negative (Negative) 11/29/18 16:46 POC ABG pH 7.413 (7.35-7.45) 12/01/18 10:39 ABG pH 7.414 pH Units (7.350-7.450) 11/28/18 01:01 POC ABG pCO2 30.6 (35-45) L 12/01/18 10:39 ABG pCO2 48.8 mm Hg 11/28/18 01:01 POC ABG pO2 95 (80-105) 12/01/18 10:39 ABG pO2 65.7 mm Hg (80.0-90.0) L 11/28/18 01:01 POC ABG HCO3 19.5 (22-26 mml/L) 12/01/18 10:39 ABG HCO3 30.5 mmol/L (20.0-26.0) H 11/28/18 01:01 POC ABG Total CO2 20 (23-27mmol/L) 12/01/18 10:39 POC ABG O2 Sat 98 12/01/18 10:39 ABG O2 Saturation 91.3 % (95.0-99.0) L 11/28/18 01:01 ABG O2 Content 22.2 (0.0-44) 11/28/18 01:01 POC ABG Base Excess -5 ((-2) - (+3)mmol/L) 12/01/18 10:39 ABG Base Excess 4.6 mmol/L (-2.0-3.0) H 11/28/18 01:01 ABG Hemoglobin 18.0 gm/dl (12.0-16.0) H 11/28/18 01:01 ABG Carboxyhemoglobin 3.1 % (0.0-5.0) 11/28/18 01:01 ABG Methemoglobin 0.5 % (0.0-1.5) 11/28/18 01:01 VBG pH 7.414 (7.320-7.420) 11/28/18 01:01 88.0 % (95.0-99.0) L 11/28/18 01:01 28 % 12/01/18 10:39 Sodium 140 mmol/L (137-145) 12/09/18 05:25 Potassium 4.5 mmol/L (3.6-5.0) 12/09/18 05:25 Chloride 99.6 mmol/L (98-107) 12/09/18 05:25 Carbon Dioxide 28 mmol/L (22-30) 12/09/18 05:25 17 mmol/L 12/09/18 05:25 BUN 21 mg/dL (7-17) H 12/09/18 05:25 1.0 mg/dL (0.7-1.2) 12/09/18 05:25 Estimated GFR > 60 ml/min 12/09/18 05:25 21 % 12/09/18 05:25 Glucose 185 mg/dL (65-100) H 12/09/18 05:25 POC Glucose 251 (70-105) H 12/10/18 17:01 12.5 % (4-6) H 11/28/18 01:01 Lactic Acid 5.00 mmol/L (0.7-2.0) H* 11/28/18 15:14 Calcium 8.8 mg/dL (8.4-10.2) 12/09/18 05:25 Phosphorus 3.30 mg/dL (2.5-4.5) 11/30/18 07:18 Magnesium 3.20 mg/dL (1.7-2.3) H 11/30/18 07:18 0.60 mg/dL (0.1-1.2) 12/09/18 05:25 1.3 mg/dL (0-0.2) H 11/28/18 01:01 1.1 mg/dL 11/28/18 01:01 AST 33 units/L (5-40) 12/09/18 05:25 ALT 60 units/L (7-56) H 12/09/18 05:25 232 units/L (35-129) H 12/09/18 05:25 30.0 umol/L (25-60) 11/28/18 01:01 976 units/L (91-180) H 12/01/18 13:45 228 units/L (30-135) H 11/28/18 01:01 0.030 ng/mL (0.00-0.029) H D 11/28/18 07:50 7.70 mg/dL (0.00-1.30) H 12/03/18 14:33 6.2 g/dL (6.3-8.2) L 12/09/18 05:25 2.5 g/dL (3.9-5) L 12/09/18 05:25 0.7 % 12/09/18 05:25 Triglycerides 356 mg/dL (2-149) H 11/28/18 01:01 Cholesterol 200 mg/dL (50-199) H 11/28/18 01:01 125 mg/dL (50-130) 11/28/18 01:01 39 mg/dL (40-59) L 11/28/18 01:01 5.12 % 11/28/18 01:01 See scanned result 11/29/18 16:46 TSH 0.288 mlU/mL (0.270-4.200) 11/28/18 01:01 HCG, Quant < 2 mIU/mL (0-4) 11/28/18 01:01 Straw (Yellow) 11/28/18 00:37 Clear (Clear) 11/28/18 00:37 7.0 (5.0-7.0) 11/28/18 00:37 Ur Specific [place] 1.023 (1.003-1.030) 11/28/18 00:37 30 mg/dl mg/dL (Negative) 11/28/18 00:37 >=500 mg/dL (Negative) 11/28/18 00:37 Tr mg/dL (Negative) 11/28/18 00:37 Sm (Negative) 11/28/18 00:37 Neg (Negative) 11/28/18 00:37 Neg (Negative) 11/28/18 00:37 < 2.0 mg/dL (<2.0) 11/28/18 00:37 Ur Leukocyte Esterase Neg (Negative) 11/28/18 00:37 < 1.0 /HPF (0.0-6.0) 11/28/18 00:37 1.0 /HPF (0.0-6.0) 11/28/18 00:37 None seen (None Seen) 11/29/18 13:40 117.4 mg/dL (0.1-20.0) H 11/29/18 13:40 53 mmol/L 11/29/18 13:40 120 mg/dL (5-11.8) H 11/29/18 13:40 Urine HCG, Qual Negative (Negative) 11/28/18 Unknown Salicylates < 0.3 mg/dL (2.8-20.0) L 11/28/18 01:01 Presumptive negative 11/28/18 00:37 Presumptive negative 11/28/18 00:37 Acetaminophen < 5.0 ug/mL (10.0-30.0) L 11/28/18 01:01 Ur Barbiturates Screen Presumptive negative 11/28/18 00:37 Ur Phencyclidine Scrn Presumptive negative 11/28/18 00:37 Ur Amphetamines Screen Presumptive negative 11/28/18 00:37 U Benzodiazepines Scrn Presumptive negative 11/28/18 00:37 Presumptive negative 11/28/18 00:37 U Marijuana (THC) Screen Presumptive negative 11/28/18 00:37 Disclamer 11/28/18 00:37 Plasma/Serum Alcohol < 0.01 % (0-0.07) 11/28/18 01:01 13 IU/ml (0-13) 12/03/18 14:33 Proteinase 3 (PR3) Ab <1.0 AI (<1.0) 12/03/18 14:33 Myeloperoxidase Ab <1.0 AI (<1.0) 12/03/18 14:33 <1.0 AI (<1.0) 12/03/18 14:33 Heparin-induced Plt Ab Negative (Negative) 11/29/18 16:46 UF Heparin High Dose 18 % Release 11/29/18 16:46 GALE UFH Low Dose 0.1 12 % Release 11/29/18 16:46 GALE UFH Low Dose 0.5 16 % Release 11/29/18 16:46 Blood Type B POSITIVE 11/28/18 01:01 Antibody Screen Negative 11/28/18 01:01 Active Medications - Current Medications Current Medications: Generic Name Dose Route Start Last Admin Trade Name Freq PRN Reason Stop Dose Admin Acetaminophen 650 mg 11/28/18 03:02 12/10/18 10:11 Tylenol PO 650 mg Q4H PRN Administration Pain MILD(1-3)/Fever >100.5/TURPIN Alprazolam 0.25 mg 11/30/18 01:09 12/06/18 20:47 Xanax PO 0.25 mg Q8H PRN Administration Anxiety Amiodarone HCl 200 mg 12/02/18 12:00 12/10/18 09:47 Cordarone PO 200 mg BID VIOLA Administration Amitriptyline HCl 25 mg 11/29/18 22:00 12/09/18 21:24 Elavil PO 25 mg HS VIOLA Administration Aspirin 81 mg 11/29/18 10:00 12/10/18 09:48 Baby Aspirin PO 81 mg QDAY VIOLA Administration Dextrose 0 ml 11/28/18 02:19 D50w (25gm) Syringe IV PRN PRN Hypoglycemia Fluticasone Propionate 50 mcg 11/29/18 10:00 12/10/18 09:47 Flonase NS 50 mcg BID VIOLA Administration Hydralazine HCl 10 mg 11/28/18 03:41 Apresoline IV Q6HR PRN Blood Pressure Hydrophilic Ointment 1 applic 11/30/18 11:55 Vaseline Lip Therapy TP DIRECT PRN DRY LIPS Sodium Chloride 1,000 mls @ 125 mls/hr 12/02/18 13:00 12/03/18 11:24 Nacl 0.9% 1000 Ml IV 0 mls/hr DIRECT VIOLA Infusion Heparin Sodium/Sodium Chloride 25,000 unit in 500 mls @ 27 mls/hr 12/07/18 12:00 12/10/18 17:11 Heparin/ 0.45% Nacl-25,000 Unit/500 Ml IV 1,550 units/hr TITR VIOLA 31 mls/hr Administration Protocol 1,350 UNITS/HR Insulin Human Isoph/Insulin Regular 24 unit 12/10/18 09:00 12/10/18 17:22 Humulin 70/30 SUB-Q 24 unit BIDDIAB VIOLA Administration Insulin Human Lispro 0 unit 11/30/18 09:00 12/10/18 16:30 Humalog SUB-Q 4 unit ACHS VIOLA Administration Protocol Metoprolol Succinate 50 mg 12/10/18 12:00 12/10/18 13:07 Toprol Xl PO 50 mg QDAY VIOLA Administration Montelukast Sodium 10 mg 11/29/18 18:00 12/10/18 17:23 Singulair PO 10 mg QPM VIOLA Administration Morphine Sulfate 2 mg 11/28/18 03:02 12/07/18 23:08 Morphine IV 2 mg Q4H PRN Administration Pain, Moderate (4-6) Ondansetron HCl 4 mg 11/28/18 03:02 Zofran IV Q8H PRN Nausea And Vomiting Pantoprazole Sodium 40 mg 11/29/18 10:00 12/10/18 09:48 Protonix PO 40 mg QDAY VIOLA Administration Pentoxifylline 400 mg 11/29/18 13:00 12/10/18 09:48 Trental PO 400 mg Q12HR VIOLA Administration Prednisone 50 mg 11/29/18 10:00 12/10/18 09:49 Deltasone PO 50 mg QDAY VIOLA Administration Sodium Chloride 10 ml 11/28/18 10:00 12/10/18 09:50 Sodium Chloride Flush Syringe 10 Ml IV 10 ml BID VIOLA Administration Sodium Chloride 10 ml 11/28/18 03:02 Sodium Chloride Flush Syringe 10 Ml IV PRN PRN LINE FLUSH Nutrition/Malnutrition Assess - Dietary Evaluation Nutrition/Malnutrition Findings: Nutrition Notes Start: 11/29/18 14:34 Freq: Status: Active Protocol: Document 11/29/18 14:35 LM (Rec: 11/29/18 14:40 LM [id number]) Nutrition Notes Need for Assessment generated from: Education Initial or Follow up Brief Note Current Diagnosis Diabetes,Hypertension Subjective/Other Information Consult for DM education. #1 Nutrition Diagnosis Food and nutrition-related knowledge deficit Etiology No prior DM diet education As Evidenced by Signs and Symptoms Pt statement of needing DM diet education, HGB A1C of 12. 5, BG 203 Nutrition Intervention Teaching Recipient Patient Learning Readiness Good Teaching Methods Discussion,Handout Education Handouts Provided Carbohydrate Counting for People with Diabetes RD phone number provided Yes Patient aware of follow up options Yes Revisit per MD consult or patient Sign Off request:
[2018-12-10] MEDS: ELAVIL PO SCH (21:26)
[2018-12-11] MEDS: HEPARIN/ 0.45% NACL-25,000 UNIT/500 ML 25,000 UNIT/500 ML BAG IV SCH (03:29)
[2018-12-11 08:00] LABS: Hematocrit 38.9 % (30.3-42.9); Hemoglobin 12.9 gm/dl (10.1-14.3)
[2018-12-11] MEDS: HumaLOG SUB-Q SCH ×4 (08:37→23:10)
[2018-12-11] MEDS: BABY ASPIRIN PO SCH (10:50)
[2018-12-11] MEDS: TRENTAL PO SCH (10:50)
[2018-12-11] MEDS: PROTONIX PO SCH (10:50)
[2018-12-11] MEDS: FLONASE NS SCH (10:50)
[2018-12-11] MEDS: DELTASONE PO SCH (10:51)
[2018-12-11] MEDS: ENTRESTO 49-51 MG PO SCH ×2 (10:53→23:10)
[2018-12-11] MEDS: CORDARONE PO SCH ×2 (11:06→23:09)
[2018-12-11] MEDS: TOPROL XL PO SCH (11:06)
--- NOTE | 2018-12-11 11:28 | Progress Note ---
Assessment and Plan - Patient Problems (1) Nonsustained ventricular tachycardia Current Visit: Yes Status: Acute Plan to address problem: Continue amiodarone, cardiac defibrillator in situ. (2) Nonischemic cardiomyopathy Current Visit: Yes Status: Acute Plan to address problem: Guideline directed medical therapy for chronic systolic left ventricular dysfunction. Subjective Date of service: 12/11/18 Principal diagnosis: ischemic extremities Interval history: Patient is comfortable, in no acute distress, no cardiac complaints. Objective Vital Signs Temp Pulse Resp BP Pulse Ox 12/11/18 11:06 97/57 12/11/18 10:48 97/57 12/11/18 07:59 97 12/11/18 05:36 98.7 F 75 18 102/63 97 12/10/18 21:50 97.4 F L 79 19 109/69 99 12/10/18 20:04 97 12/10/18 16:54 97.5 F L 82 20 105/70 99 12/10/18 13:07 69 118/59 12/10/18 12:54 96.8 F L 20 118/59 - Physical Examination General: No Apparent Distress, Other (severely obese) HEENT: Positive: PERRL Neck: Positive: trachea midline Cardiac: Positive: Reg Rate and Rhythm Lungs: Positive: Decreased Breath Sounds Neuro: Positive: Grossly Intact Abdomen: Positive: Soft Skin: Positive: Clear Extremities: Absent: edema - Labs and Meds CBC 12/11/18 Range/Units 07:40 Hgb 12.9 (10.1-14.3) gm/dl Hct 38.9 (30.3-42.9) % Plt Count 291 (140-440) K/mm3
[2018-12-11] MEDS: SODIUM CHLORIDE FLUSH SYRINGE 10 ML IV SCH (11:33)
--- NOTE | 2018-12-11 13:14 | Progress Note ---
Assessment and Plan /Ischemic lower > upper extremity. [facility] Surgery following, Dr. Hernandez, On heparin drip HIT panel -negative, F/U labs for vasculitis--CRP, sedimentation rate, anti-Ro, anti-la, anti-Maritza 1, AMA, ANCA, rheumatoid factor. Anti-ccp /-GI bleeding/epistaxis/vaginal bleeding; Discussed with GI, advised to continue heparin, If patient has severe bleeding or significant drop in H&H will consider holding heparin /Hyperosmolar hyperglycemic state (HHS) in a newly diagnosed Diabetes-new onset Patient was admitted to the ICU on insulin drip, now off Insulin drip Continue serial BMP level monitoring, Cont. Novolin 70/30 /Diabetes mellitus type 2-new onset /SIRS with leukemoid reaction Present on admission with leukocytosis, tachycardia, tachypnea. Likely from limb ischemia. No acute signs of infection at the present time. Continue off an tibiotics. CT abd/pelvis showed generalized bronchiectasis Blood cultures no growth /Vtach s/p shocked 8 tiemes by AICD, as per interrogation, notes in paper chart Cont. Amiodarone cardiology following, b-ernesto added RODNEY planned for Thursday morning /Metabolic encephalopathy, resolved Head CT scan negative We'll monitor clinically /-Acute hypoxic respiratory failure. O2 and BiPAP as clinically indicated. /-CATRACHO Continue CPAP during sleep and when necessary. /-Interstitial lung disease. Continue per pulmonary. nebs as needed /Systemic sclerosis, celcept on hold /-Elevated troponin; nonspecific supportive care /-EDGARDO; Probably vasomotor nephropathy due to dehydration Resolved /Abnormal LFT Probably due to acute process -CT abd/pelvis negative for liver pathology -We'll monitor levels /-Hypertension Stable,On PRN hydralazine /Cardiomyopathy with EF of 20-25% -Status post AICD placement -No acute exacerbation /GERD -On famotidine /Severe malnutrition/hypoalbuminemia: Nutriyion consult /DVT prophylaxis with heparin Partient has systemic sclerosis, sees a Senior Quality Assurance Analyst Was on Cellcept, did not resumed because it may cause thrombosis Disposition; follow consult and recommendations Brief History: 38-year-old female patient with history of scleroderma severe cardiomyopathy history of V. fib V. tach runs status post ICD and recently started on CellCept 2 weeks ago developed bilateral lower extremity ischemia with the development of cyanotic bilateral feet and cyanotic left upper extremity left middle digit.Vascular, hematology oncologist evaluated the patient, started on heparin drip. Had brief episode of GI bleeding, GI evaluated the patient, since patient did not have new episodes of GI bleeding, advised to continue heparin drip and c losely monitor H&H and new episodes of bleeding.. Orthopedic has evaluated the patient and is planning surgery once the demarcation of ischemia is clear Hospitalist Physical exam: GENERAL: lying on bed appeared to be in no discomfort. HEENT: Normocephalic. Atraumatic. No conjunctival congestion or icterus. Patient has moist mucous membranes. NECK: Supple. Trachea midline. CHEST/LUNGS: Clear to auscultated bilaterally, breathing nonlabored. No wheezes crackles or rhonchi. HEART/CARDIOVASCULAR: Regular in rate and rhythm. S1 and S2 positive. ABDOMEN: Abdomen is soft, nontender. Patient has normal bowel sounds. SKIN: bruises over arms. Warm and dry. NEURO: No focal motor deficit. Follows command. MUSCULOSKELETAL: No joint effusion or tenderness. EXTRIMITY: + cyanosis on b/l LE, The bilateral feet are warm, but there is ischemic, partially demarcated tissue at the midfoot near the hindfoot and the forefoot on the right side and left forefoot on the left side. PSYCH: Cooperative. Subjective Date of service: 12/11/18 Principal diagnosis: ischemic extremities Interval history: Patient seen and examined. Medical records and medication list reviewed. No acute event overnight noted by the RN. Patient denies any chest pain or difficulty breathing. Patient is tolerating diet. States LE pain slightly improved Discussed plan of care at bedside with patient. Objective - Constitutional Vitals: Vital Signs - 12hr 12/11/18 12/11/18 12/11/18 05:36 07:59 10:48 Temperature 98.7 F Pulse Rate 75 Respiratory 18 Rate Blood Pressure 102/63 97/57 O2 Sat by Pulse 97 97 Oximetry 12/11/18 11:06 Temperature Pulse Rate Respiratory Rate Blood Pressure 97/57 O2 Sat by Pulse Oximetry - Labs CBC & Chem 7: 12/13/18 Unknown 12/13/18 Unknown Labs: Abnormal lab results 12/10/18 12/10/18 12/10/18 Range/Units 15:42 17:01 21:50 Heparin Anti-Xa Level 0.10 L (0.3-0.7) U.I./ml POC Glucose 251 H 300 H (70-105) 12/10/18 12/11/18 12/11/18 Range/Units 23:45 07:40 07:52 Heparin Anti-Xa Level 1.64 H 1.17 H (0.3-0.7) U.I./ml POC Glucose 149 H (70-105) 12/11/18 Range/Units 11:48 Heparin Anti-Xa Level (0.3-0.7) U.I./ml POC Glucose 215 H (70-105)
[2018-12-11] MEDS: SINGULAIR PO SCH (17:54)
[2018-12-11] MEDS: TYLENOL PO PRN (18:01)
[2018-12-11] MEDS: ELAVIL PO SCH (23:09)
[2018-12-12] MEDS: FLONASE NS SCH ×3 (02:02→23:54)
[2018-12-12] MEDS: SODIUM CHLORIDE FLUSH SYRINGE 10 ML IV SCH ×3 (02:07→23:57)
--- NOTE | 2018-12-12 06:47 | Hem/Onc Progress Note ---
Assessment and Plan Peripheral extremities both lower and left upper extremity thromboembolic disease. This may be related to her generalized disease etiology versus rheumatology issue versus embolic phenomena. There was a question if this is HIT. However, the platelet count is not low. HIT test Negative 1. h/o Elevated bilirubin. 2. h/o Electrolyte imbalance. 3. Arterial thrombus, on anticoagulation. 4. h/o Diabetic ketoacidosis. 5. h/o Hypertension. 6. h/o Ischemic cardiomyopathy with low ejection fraction. 7. h/o Respiratory failure. 8. h/o Sepsis, elevated troponin /CPK. I will follow the patient during inpatient stay and then in the clinic setting. The cause of thromboembolism is not clear. echo done RODNEY Done HIT negative high hct likely sec to sleep apnea dark toes - with arterial thrombus HIT neg - was on IV heparin - stopped and restarted there is a question if her signs and symptoms are sec to rheumatology issues vascular team and sx team to decide timing for any procedure - till then heparin is better as it can be reversed for any procedure - Patient Problems (1) Ischemia Current Visit: Yes Status: Acute Subjective Date of service: 12/12/18 Principal diagnosis: ischemic leg Interval history: on iv heparin Objective - Exam Narrative Exam: Pain - hand and leg General appearance pain Performance status limited self care Eyes - no icterus ENT - no bleeding LNs cervical not palpable Neck - no LN Respiratory Normal Breath sounds - CTA CVS S1 S2 + Extremities cold toes and dark left hand finger General GI Soft Rectal deferred female - deferred Skin warm Musculoskeletal moving extremitites - dark foot and left hand finger Neurologically awake - Constitutional Vitals: Last Vital Signs Temp 98.6 F 12/12/18 06:10 Pulse 43 L 12/11/18 23:01 Resp 20 12/12/18 06:10 BP 117/79 12/12/18 06:10 Pulse Ox 91 12/11/18 23:01 - Labs Lab Results: Laboratory Results - last 24 hr 12/11/18 12/11/18 12/11/18 07:40 07:40 07:52 Hgb 12.9 Hct 38.9 Plt Count 291 Heparin Anti-Xa Level 1.17 H POC Glucose 149 H 12/11/18 12/11/18 12/11/18 11:48 16:43 17:30 Hgb Hct Plt Count Heparin Anti-Xa Level 0.71 H POC Glucose 215 H 161 H 12/11/18 12/12/18 21:03 02:04 Hgb Hct Plt Count Heparin Anti-Xa Level 0.31 POC Glucose 325 H Medications & Allergies - Medications Allergies/Adverse Reactions: Allergies lisinopril Adverse Reaction (Severe, Verified 12/17/13 19:00) SORE THROAT;PERSISTENT COUGH Home Medications: Home Medications Medication Instructions Recorded Confirmed Last Taken Type Aspirin [Aspirin BABY CHEW TAB] 81 mg PO QDAY 11/28/18 11/29/18 11/26/18 History Fluticasone [Flonase] 1 spray NS BID 11/28/18 11/28/18 Unknown History Furosemide [Lasix TAB] 40 mg PO BID 11/28/18 11/28/18 Unknown History Ibuprofen [Motrin] 600 mg PO Q6H PRN 11/28/18 11/28/18 Unknown History Montelukast [Singulair] 10 mg PO QPM 11/28/18 11/28/18 Unknown History Mycophenolate [Cellcept] 500 mg PO BID 11/28/18 11/28/18 Unknown History Mycophenolate [Cellcept] 500 mg PO BID PRN MDD 2 TABS 11/28/18 11/28/18 Unknown History Pantoprazole [Protonix] 40 mg PO QDAY 11/28/18 11/28/18 Unknown History Sacubitril/Valsartan [Entresto 1 each PO BID 11/28/18 11/28/18 Unknown History 49-51 mg] predniSONE [Deltasone] 50 mg PO QDAY 11/28/18 11/28/18 Unknown History raNITIdine HCl [Zantac] 150 mg PO BID 11/28/18 11/28/18 Unknown History Amitriptyline [Elavil] 25 mg PO HS 11/29/18 11/29/18 11/26/18 History Aspirin [Adult Aspirin] 81 mg PO ONCE 11/29/18 11/29/18 11/26/18 History Entresto 49-51 mg 49 mg PO BID 11/29/18 11/29/18 11/26/18 History HYDROcodone/APAP 5-325 5 mg PO Q6HR PRN 11/29/18 11/29/18 Unknown History Active Medications: Generic Name Dose Route Start Last Admin Trade Name Freq PRN Reason Stop Dose Admin Acetaminophen 650 mg 11/28/18 03:02 12/11/18 18:01 Tylenol PO 650 mg Q4H PRN Administration Pain MILD(1-3)/Fever >100.5/TURPIN Alprazolam 0.25 mg 11/30/18 01:09 12/06/18 20:47 Xanax PO 0.25 mg Q8H PRN Administration Anxiety Amiodarone HCl 200 mg 12/02/18 12:00 12/11/18 23:09 Cordarone PO 200 mg BID VIOLA Administration Amitriptyline HCl 25 mg 11/29/18 22:00 12/11/18 23:09 Elavil PO 25 mg HS VIOLA Administration Aspirin 81 mg 11/29/18 10:00 12/11/18 10:50 Baby Aspirin PO 81 mg QDAY VIOLA Administration Dextrose 0 ml 11/28/18 02:19 D50w (25gm) Syringe IV PRN PRN Hypoglycemia Fluticasone Propionate 50 mcg 11/29/18 10:00 12/12/18 02:02 Flonase NS 50 mcg BID VIOLA Administration Hydralazine HCl 10 mg 11/28/18 03:41 Apresoline IV Q6HR PRN Blood Pressure Hydrophilic Ointment 1 applic 11/30/18 11:55 Vaseline Lip Therapy TP DIRECT PRN DRY LIPS Sodium Chloride 1,000 mls @ 125 mls/hr 12/02/18 13:00 12/03/18 11:24 Nacl 0.9% 1000 Ml IV 0 mls/hr DIRECT VIOLA Infusion Heparin Sodium/Sodium Chloride 25,000 unit in 500 mls @ 27 mls/hr 12/07/18 12:00 12/12/18 02:15 Heparin/ 0.45% Nacl-25,000 Unit/500 Ml IV Infused TITR VIOLA Titration Protocol 1,350 UNITS/HR Insulin Human Isoph/Insulin Regular 24 unit 12/10/18 09:00 12/11/18 18:01 Humulin 70/30 SUB-Q 24 unit BIDDIAB VIOLA Administration Insulin Human Lispro 0 unit 11/30/18 09:00 12/11/18 23:10 Humalog SUB-Q 6 unit ACHS VIOLA Administration Protocol Metoprolol Succinate 50 mg 12/10/18 12:00 12/11/18 11:06 Toprol Xl PO Not Given QDAY VIOLA Montelukast Sodium 10 mg 11/29/18 18:00 12/11/18 17:54 Singulair PO 10 mg QPM VIOLA Administration Morphine Sulfate 2 mg 11/28/18 03:02 12/07/18 23:08 Morphine IV 2 mg Q4H PRN Administration Pain, Moderate (4-6) Ondansetron HCl 4 mg 11/28/18 03:02 Zofran IV Q8H PRN Nausea And Vomiting Pantoprazole Sodium 40 mg 11/29/18 10:00 12/11/18 10:50 Protonix PO 40 mg QDAY VIOLA Administration Pentoxifylline 400 mg 11/29/18 13:00 12/12/18 00:00 Trental PO 400 mg Q12HR VIOLA Administration Prednisone 50 mg 11/29/18 10:00 12/11/18 10:51 Deltasone PO 50 mg QDAY VIOLA Administration Sodium Chloride 10 ml 11/28/18 10:00 12/12/18 02:07 Sodium Chloride Flush Syringe 10 Ml IV 10 ml BID VIOLA Administration Sodium Chloride 10 ml 11/28/18 03:02 Sodium Chloride Flush Syringe 10 Ml IV PRN PRN LINE FLUSH
[2018-12-12] MEDS: HEPARIN/ 0.45% NACL-25,000 UNIT/500 ML 25,000 UNIT/500 ML BAG IV SCH (07:11)
[2018-12-12] MEDS: HumaLOG SUB-Q SCH ×4 (09:20→23:54)
[2018-12-12] MEDS: BABY ASPIRIN PO SCH (09:22)
[2018-12-12] MEDS: TRENTAL PO SCH ×3 (09:22→23:54)
[2018-12-12] MEDS: PROTONIX PO SCH (09:22)
[2018-12-12] MEDS: DELTASONE PO SCH (09:23)
[2018-12-12] MEDS: CORDARONE PO SCH ×2 (09:25→23:54)
[2018-12-12] MEDS: TOPROL XL PO SCH (09:26)
--- NOTE | 2018-12-12 11:50 | Progress Note ---
Assessment and Plan /Ischemic lower > upper extremity. [facility] Surgery following, Dr. Hernandez, On heparin drip HIT panel -negative, F/U labs for vasculitis--CRP, sedimentation rate, anti-Ro, anti-la, anti-Maritza 1, AMA, ANCA, rheumatoid factor. Anti-ccp /-GI bleeding/epistaxis/vaginal bleeding; Discussed with GI, advised to continue heparin, If patient has severe bleeding or significant drop in H&H will consider holding heparin /Hyperosmolar hyperglycemic state (HHS) in a newly diagnosed Diabetes-new onset Patient was admitted to the ICU on insulin drip, now off Insulin drip Continue serial BMP level monitoring, Cont. Novolin 70/30 /Diabetes mellitus type 2-new onset /SIRS with leukemoid reaction Present on admission with leukocytosis, tachycardia, tachypnea. Likely from limb ischemia. No acute signs of infection at the present time. Continue off an tibiotics. CT abd/pelvis showed generalized bronchiectasis Blood cultures no growth /Vtach s/p shocked 8 tiemes by AICD, as per interrogation, notes in paper chart Cont. Amiodarone cardiology following, b-ernesto added RODNEY planned for Thursday morning /Metabolic encephalopathy, resolved Head CT scan negative We'll monitor clinically /-Acute hypoxic respiratory failure. O2 and BiPAP as clinically indicated. /-CATRACHO Continue CPAP during sleep and when necessary. /-Interstitial lung disease. Continue per pulmonary. nebs as needed /Systemic sclerosis, celcept on hold /-Elevated troponin; nonspecific supportive care /-EDGARDO; Probably vasomotor nephropathy due to dehydration Resolved /Abnormal LFT Probably due to acute process -CT abd/pelvis negative for liver pathology -We'll monitor levels /-Hypertension Stable,On PRN hydralazine /Cardiomyopathy with EF of 20-25% -Status post AICD placement -No acute exacerbation /GERD -On famotidine /Severe malnutrition/hypoalbuminemia: Nutriyion consult /DVT prophylaxis with heparin Partient has systemic sclerosis, sees a Stylist Assistant Was on Cellcept, did not resumed because it may cause thrombosis Disposition; pending consult and recommendations Brief History: 38-year-old female patient with history of scleroderma severe cardiomyopathy history of V. fib V. tach runs status post ICD and recently started on CellCept 2 weeks ago developed bilateral lower extremity ischemia with the development of cyanotic bilateral feet and cyanotic left upper extremity left middle digit.Vascular, hematology oncologist evaluated the patient, started on heparin drip. Had brief episode of GI bleeding, GI evaluated the patient, since patient did not have new episodes of GI bleeding, advised to continue heparin drip and closely monitor H&H and new episodes of bleeding.. Orthopedic has evaluated the patient and is planning surgery once the demarcation of ischemia is clear Hospitalist Physical exam: GENERAL: lying on bed appeared to be in no discomfort. HEENT: Normocephalic. Atraumatic. No conjunctival congestion or icterus. Patient has moist mucous membranes. NECK: Supple. Trachea midline. CHEST/LUNGS: Clear to auscultated bilaterally, breathing nonlabored. No wheezes crackles or rhonchi. HEART/CARDIOVASCULAR: Regular in rate and rhythm. S1 and S2 positive. ABDOMEN: Abdomen is soft, nontender. Patient has normal bowel sounds. SKIN: bruises over arms. Warm and dry. NEURO: No focal motor deficit. Follows command. MUSCULOSKELETAL: No joint effusion or tenderness. EXTRIMITY: + cyanosis on b/l LE, The bilateral feet are warm, but there is ischemic, partially demarcated tissue at the midfoot near the hindfoot and the forefoot on the right side and left forefoot on the left side. PSYCH: Cooperative. Subjective Date of service: 12/12/18 Principal diagnosis: ischemic extremities Interval history: Patient seen and examined. Medical records and medication list reviewed. No acute event overnight noted by the RN. Patient denies any chest pain or difficulty breathing. Patient is tolerating diet. States LE pain slightly improved Discussed plan of care at bedside with patient. Objective - Constitutional Vitals: Vital Signs - 12hr 12/12/18 12/12/18 12/12/18 06:10 08:40 09:18 Temperature 98.6 F Respiratory 20 Rate Blood Pressure 117/79 103/55 O2 Sat by Pulse 95 Oximetry 12/12/18 09:26 Temperature Respiratory Rate Blood Pressure 103/55 O2 Sat by Pulse Oximetry - Labs CBC & Chem 7: 12/13/18 Unknown 12/13/18 Unknown Labs: Abnormal lab results 12/11/18 12/11/18 12/11/18 Range/Units 11:48 16:43 17:30 Heparin Anti-Xa Level 0.71 H (0.3-0.7) U.I./ml POC Glucose 215 H 161 H (70-105) 12/11/18 12/12/18 12/12/18 Range/Units 21:03 07:58 11:20 Heparin Anti-Xa Level (0.3-0.7) U.I./ml POC Glucose 325 H 179 H 236 H (70-105)
[2018-12-12] MEDS: ENTRESTO 49-51 MG PO SCH ×2 (11:51→23:53)
--- NOTE | 2018-12-12 14:09 | Progress Note ---
Assessment and Plan - Patient Problems (1) Nonsustained ventricular tachycardia Current Visit: Yes Status: Acute Plan to address problem: Continue amiodarone, cardiac defibrillator in situ. (2) Nonischemic cardiomyopathy Current Visit: Yes Status: Acute Plan to address problem: Guideline directed medical therapy for chronic systolic left ventricular dysfunction. Subjective Date of service: 12/12/18 Principal diagnosis: ischemic extremities Interval history: Patient is comfortable, in no acute distress, no cardiac complaints. Objective Vital Signs Temp Pulse Resp BP Pulse Ox 12/12/18 09:26 103/55 12/12/18 09:18 103/55 12/12/18 08:40 95 12/12/18 06:10 98.6 F 20 117/79 12/11/18 23:01 98.8 F 43 L 18 110/67 91 12/11/18 21:04 98 12/11/18 16:57 98.1 F 84 18 116/84 99 - Physical Examination General: No Apparent Distress, Other (severely obese) HEENT: Positive: PERRL Neck: Positive: trachea midline Cardiac: Positive: Reg Rate and Rhythm Lungs: Positive: Decreased Breath Sounds Neuro: Positive: Grossly Intact Abdomen: Positive: Soft Skin: Positive: Clear Extremities: Absent: edema
[2018-12-12] MEDS: SINGULAIR PO SCH (18:42)
[2018-12-12] MEDS: ELAVIL PO SCH (23:53)
--- NOTE | 2018-12-13 00:19 | Event Note ---
Date: 12/13/18 Notified by nurse that patient had moderate amount of right red blood in stool. Spoke with GI would advise to change patient to IV Protonix twice a day, make patient nothing by mouth, and they will see patient in the morning. Pending results of stat h/h. if there is a significant decrease in H/H Will consult cardiology regarding discontinuing heparin drip. We'll continue to monitor serial H&H q 2hrs.
[2018-12-13 00:55] LABS: Hematocrit 27.6 % (30.3-42.9); Hemoglobin 9.7 gm/dl (10.1-14.3)
[2018-12-13] MEDS ORDERED: NACL 0.9% 500 ML 500 ML IV ONE (01:31)
[2018-12-13 01:50] LABS: Hematocrit 29.1 % (30.3-42.9); Hemoglobin 9.6 gm/dl (10.1-14.3); Mean Corpuscular HGB Conc 33 % (30-34); Mean Corpuscular Volume 85 fl (79-97); Platelet Count 313 K/mm3 (140-440); Red Blood Count 3.41 M/mm3 (3.65-5.03); Red Cell Distribution Width 18.8 % (13.2-15.2)
[2018-12-13] MEDS ORDERED: NACL 0.9% 1000 ML 250 ML IV ONE (01:53)
[2018-12-13 02:18] LABS: Hematocrit 28.4 % (30.3-42.9); Hemoglobin 9.4 gm/dl (10.1-14.3)
[2018-12-13 02:32] LABS: INR 1.17 (0.87-1.13)
[2018-12-13 02:33] LABS: Partial Thromboplastin Time 58.7 Sec. (24.2-36.6)
[2018-12-13 02:34] LABS: Alanine Aminotransferase 36 units/L (7-56); Albumin 2.9 g/dL (3.9-5); BUN/Creatinine Ratio 24; Blood Urea Nitrogen 24 mg/dL (7-17); Calcium 8.7 mg/dL (8.4-10.2); Hemolysis Index 4
[2018-12-13 02:37] LABS: Basophils % (Manual) 0 % (0.0-1.8); Eosinophils % (Manual) 0 % (0.0-4.3); RBC Morphology Normal; Total Cells Counted 100
--- NOTE | 2018-12-13 07:01 | Cat Scan Report ---
CTA ABDOMEN AND PELVIS WITHOUT AND WITH IV CONTRAST INDICATION: active gi bleed. TECHNIQUE: Axial CT images were obtained through the abdomen and pelvis before and after after injection of 100 cc Omnipaque 350 IV contrast. 3 plane MIP reconstructions were produced. All CT scans at this [facility] are performed using CT dose reduction for ALARA by means of automated exposure control. COMPARISON: None available. FINDINGS: Aorta: No acute abnormality. Renal arteries: No acute abnormality. Celiac artery: No acute abnormality. Superior mesenteric artery: No acute abnormality. Inferior mesenteric artery: No acute abnormality. Right iliac arteries: No acute abnormality. Left iliac arteries: No acute abnormality. Additional Findings: No active arterial bleeding visualized CT ABDOMEN: Heart is enlarged with mild increased interstitial markings characteristic for pulmonary edema. The liver, pancreas, spleen, adrenals and right kidney appear within normal limits. A small 1 cm left renal cyst is present. Gallbladder surgically absent CT PELVIS: Uterus, adnexal structures, bladder and distal ureters are unremarkable. The large and sma ll bowel including the appendix are normal. No free fluid or adenopathy is seen. Skeletal Structures: Erosive changes are seen within the right SI joint with 2 arthrodesis screws not ed. IMPRESSION: 1. Cardiomegaly with mild interstitial edema. 2. No CT evidence for active bleeding or mesenteric ischemia Signer Name: Umer Sylvester MD Signed: 12/13/2018 6:56 AM Workstation Name: [id number]
[2018-12-13] MEDS: HumaLOG SUB-Q SCH ×4 (07:30→22:43)
[2018-12-13 07:33] LABS: Hematocrit 25.4 % (30.3-42.9); Hemoglobin 8.5 gm/dl (10.1-14.3)
[2018-12-13 07:51] LABS: BUN/Creatinine Ratio 25; Blood Urea Nitrogen 25 mg/dL (7-17); Calcium 8.6 mg/dL (8.4-10.2); Hemolysis Index 10
[2018-12-13] MEDS: PROTONIX IV SCH ×2 (09:28→22:02)
[2018-12-13] MEDS: SODIUM CHLORIDE FLUSH SYRINGE 10 ML IV SCH ×2 (09:29→22:02)
[2018-12-13] MEDS: DELTASONE PO SCH (09:43)
[2018-12-13] MEDS: CORDARONE PO SCH ×2 (09:46→22:02)
[2018-12-13] MEDS: FLONASE NS SCH ×2 (09:49→22:02)
[2018-12-13 11:10] LABS: Hematocrit 25.5 % (30.3-42.9); Hemoglobin 8.5 gm/dl (10.1-14.3)
--- NOTE | 2018-12-13 12:15 | Progress Note ---
Assessment and Plan / Acute rectal bleeding - s/p one unit FFP, hold heparin - has had GI bleeding/epistaxis/vaginal bleeding after starting heparin prior - will f/u GI recommendation, cont to monitor h/h - transfused if drops below 8 - considering extensive cardiac history /Ischemic lower > upper extremity. Vasc Surgery following Dr. Hernandez, plan for amputation when clear line of demarcation achieved HIT panel -negative, F/U labs for vasculitis--CRP, sedimentation rate, anti-Ro, anti-la, anti-Maritza 1, AMA, ANCA, rheumatoid factor. Anti-ccp /Hyperosmolar hyperglycemic state (HHS) in a newly diagnosed Diabetes-new onset Patient was admitted to the ICU on insulin drip, now off Insulin drip Continue serial BMP level monitoring, Cont. Novolin 70/30 /Diabetes mellitus type 2-new onset, cont SSI /SIRS with leukemoid reaction Present on admission with leukocytosis, tachycardia, tachypnea. Likely from limb ischemia. No acute signs of infection at the present time. Continue off antibiotics. CT abd/pelvis showed generalized bronchiectasis Blood cultures no growth /Vtach s/p shocked 8 tiemes by AICD, as per interrogation, notes in paper chart Cont. Amiodarone cardiology following, b-ernesto added RODNEY planned for Thursday morning /Metabolic encephalopathy, resolved Head CT scan negative We'll monitor clinically /-Acute hypoxic respiratory failure. O2 and BiPAP as clinically indicated. /-CATRACHO Continue CPAP during sleep and when necessary. /-Interstitial lung disease. Continue per pulmonary. nebs as needed /Systemic sclerosis, celcept on hold /-Elevated troponin; nonspecific supportive care /-EDGARDO; Probably vasomotor nephropathy due to dehydration Resolved /Abnormal LFT Probably due to acute process -CT abd/pelvis negative for liver pathology -We'll monitor levels /-Hypertension Stable,On PRN hydralazine /Cardiomyopathy with EF of 20-25% -Status post AICD placement -No acute exacerbation /GERD -On famotidine /Severe malnutrition/hypoalbuminemia: Nutrition consult /DVT prophylaxis: off hold heparin now for rectal bleeding Disposition; pending consult and recommendations Brief History: 38-year-old female patient with history of scleroderma severe cardiomyopathy history of V. fib V. tach runs status post ICD and recently started on CellCept who was brought to the ED via EMS on account of generalized weakness,confusion, multiple episodes of nausea with vomiting generalized weakness and poor oral intake. Also noted some bluish discoloration of her feet which prompted her significant other to call 911. She noted to have BG of 1088, placed on insulin drip, admitted to ICU. Vascular, hematology oncologist evaluated the patient, started on heparin drip for bilateral lower extremity ischemia with the development of cyanotic bilateral feet and cyanotic left upper extremity left middle digit. Had brief episode of GI bleeding, GI evaluated the patient, since patient did not have new episodes of GI bleeding, advised to continue heparin drip and closely monitor H&H. Orthopedic has evaluated the patient and is planning surgery once the demarcation of ischemia is clear. Now she had rectal b leeding last night and off heparin drip, waiting on vascular/ortho to plan for amputation. Hospitalist Physical exam: GENERAL: lying on bed appeared to be in no discomfort. HEENT: Normocephalic. Atraumatic. No conjunctival congestion or icterus. Patient has moist mucous membranes. NECK: Supple. Trachea midline. CHEST/LUNGS: Clear to auscultated bilaterally, breathing nonlabored. No wheezes crackles or rhonchi. HEART/CARDIOVASCULAR: Regular in rate and rhythm. S1 and S2 positive. ABDOMEN: Abdomen is soft, nontender. Patient has normal bowel sounds. SKIN: bruises over arms. Warm and dry. NEURO: No focal motor deficit. Follows command. MUSCULOSKELETAL: No joint effusion or tenderness. EXTRIMITY: + cyanosis on b/l LE, The bilateral feet are warm, but there is ischemic, partially demarcated tissue at the midfoot near the hindfoot and the forefoot on the right side and left forefoot on the left side. PSYCH: Cooperative. Subjective Date of service: 12/13/18 Principal diagnosis: ischemic extremities Interval history: Patient seen and examined. Medical records and medication list reviewed. had episodes of rectal bleeding o/n, transferred to ICU, H/h dropped, off heparin drip now Discussed plan of care at bedside with patient. Objective - Constitutional Vitals: Vital Signs - 12hr 12/13/18 12/13/18 12/13/18 01:32 02:00 03:00 Temperature 98.5 F Pulse Rate 44 L 105 H 95 H Respiratory 18 31 H 26 H Rate Blood Pressure 78/46 89/72 94/56 O2 Sat by Pulse 99 100 100 Oximetry 12/13/18 12/13/18 12/13/18 03:45 04:00 05:00 Temperature 99.2 F Pulse Rate 99 H 101 H Respiratory 26 H 33 H Rate Blood Pressure 86/64 95/60 O2 Sat by Pulse 100 100 Oximetry 12/13/18 12/13/18 12/13/18 05:27 06:25 07:00 Temperature 97.5 F L Pulse Rate 103 H 109 H 90 Respiratory 32 H 20 32 H Rate Blood Pressure 105/63 105/63 97/64 O2 Sat by Pulse 100 100 Oximetry 12/13/18 12/13/18 12/13/18 08:00 08:01 08:44 Temperature Pulse Rate 106 H Respiratory 36 H Rate Blood Pressure 97/64 O2 Sat by Pulse 100 100 Oximetry 12/13/18 12/13/18 09:01 10:01 Temperature Pulse Rate 101 H 100 H Respiratory 35 H 34 H Rate Blood Pressure 150/99 112/46 O2 Sat by Pulse 100 Oximetry - Labs CBC & Chem 7: 12/14/18 04:05 12/14/18 04:05 Labs: Abnormal lab results 12/12/18 12/12/18 12/13/18 Range/Units 16:08 22:09 00:40 WBC (4.5-11.0) K/mm3 RBC (3.65-5.03) M/mm3 Hgb 9.7 L D (10.1-14.3) gm/dl Hct 27.6 L D (30.3-42.9) % RDW (13.2-15.2) % Seg Neuts % (Manual) (40.0-70.0) % Lymphocytes % (Manual) (13.4-35.0) % Monocytes % (Manual) (0.0-7.3) % Seg Neutrophils # Man (1.8-7.7) K/mm3 Monocytes # (Manual) (0.0-0.8) K/mm3 INR (0.87-1.13) APTT (24.2-36.6) Sec. BUN (7-17) mg/dL Glucose (65-100) mg/dL POC Glucose 240 H 302 H (70-105) Alkaline Phosphatase (35-129) units/L Total Protein (6.3-8.2) g/dL Albumin (3.9-5) g/dL 12/13/18 12/13/18 12/13/18 Range/Units 07:07 07:07 08:19 WBC (4.5-11.0) K/mm3 RBC (3.65-5.03) M/mm3 Hgb 8.5 L (10.1-14.3) gm/dl Hct 25.4 L (30.3-42.9) % RDW (13.2-15.2) % Seg Neuts % (Manual) (40.0-70.0) % Lymphocytes % (Manual) (13.4-35.0) % Monocytes % (Manual) (0.0-7.3) % Seg Neutrophils # Man (1.8-7.7) K/mm3 Monocytes # (Manual) (0.0-0.8) K/mm3 INR (0.87-1.13) APTT (24.2-36.6) Sec. BUN 25 H (7-17) mg/dL Glucose 132 H (65-100) mg/dL POC Glucose 149 H (70-105) Alkaline Phosphatase (35-129) units/L Total Protein (6.3-8.2) g/dL Albumin (3.9-5) g/dL 12/13/18 12/13/18 12/13/18 Range/Units 10:40 Unknown Unknown WBC 38.9 H (4.5-11.0) K/mm3 RBC 3.41 L (3.65-5.03) M/mm3 Hgb 8.5 L 9.6 L (10.1-14.3) gm/dl Hct 25.5 L 29.1 L (30.3-42.9) % RDW 18.8 H (13.2-15.2) % Seg Neuts % (Manual) 86.0 H (40.0-70.0) % Lymphocytes % (Manual) 5.0 L (13.4-35.0) % Monocytes % (Manual) 9.0 H (0.0-7.3) % Seg Neutrophils # Man 33.5 H (1.8-7.7) K/mm3 Monocytes # (Manual) 3.5 H (0.0-0.8) K/mm3 INR 1.17 H (0.87-1.13) APTT 58.7 H (24.2-36.6) Sec. BUN (7-17) mg/dL Glucose (65-100) mg/dL POC Glucose (70-105) Alkaline Phosphatase (35-129) units/L Total Protein (6.3-8.2) g/dL Albumin (3.9-5) g/dL 12/13/18 12/13/18 Range/Units Unknown Unknown WBC (4.5-11.0) K/mm3 RBC (3.65-5.03) M/mm3 Hgb 9.4 L (10.1-14.3) gm/dl Hct 28.4 L (30.3-42.9) % RDW (13.2-15.2) % Seg Neuts % (Manual) (40.0-70.0) % Lymphocytes % (Manual) (13.4-35.0) % Monocytes % (Manual) (0.0-7.3) % Seg Neutrophils # Man (1.8-7.7) K/mm3 Monocytes # (Manual) (0.0-0.8) K/mm3 INR (0.87-1.13) APTT (24.2-36.6) Sec. BUN 24 H (7-17) mg/dL Glucose 178 H (65-100) mg/dL POC Glucose (70-105) Alkaline Phosphatase 133 H (35-129) units/L Total Protein 5.6 L (6.3-8.2) g/dL Albumin 2.9 L (3.9-5) g/dL
--- NOTE | 2018-12-13 16:52 | Progress Note ---
Assessment and Plan - Patient Problems (1) Nonsustained ventricular tachycardia Current Visit: Yes Status: Acute Plan to address problem: Continue amiodarone, cardiac defibrillator in situ. (2) Nonischemic cardiomyopathy Current Visit: Yes Status: Acute Plan to address problem: Guideline directed medical therapy for chronic systolic left ventricular dysfunction. Subjective Date of service: 12/13/18 Principal diagnosis: ischemic leg Interval history: Patient's heparin was stopped due to development of suspected GI bleed. She is currently back in the ICU, appears comfortable, no acute distress. Heart rate and blood pressure are stable. Vascular surgery is following her apparent lower extremity ischemia. Objective Vital Signs Temp Pulse Resp BP Pulse Ox 12/13/18 13:00 101 H 33 H 93/48 12/13/18 12:00 97 H 13 108/45 98 12/13/18 11:00 101 H 32 H 108/45 93 12/13/18 10:01 100 H 34 H 112/46 100 12/13/18 09:01 101 H 35 H 150/99 12/13/18 08:44 100 12/13/18 08:01 106 H 36 H 97/64 12/13/18 08:00 100 12/13/18 07:00 90 32 H 97/64 100 12/13/18 06:25 109 H 20 105/63 100 12/13/18 05:27 97.5 F L 103 H 32 H 105/63 12/13/18 05:00 101 H 33 H 95/60 100 12/13/18 04:00 99 H 26 H 86/64 100 12/13/18 03:45 99.2 F 12/13/18 03:00 95 H 26 H 94/56 100 12/13/18 02:00 98.5 F 105 H 31 H 89/72 100 12/13/18 01:32 44 L 18 78/46 99 12/12/18 23:50 98.5 F 48 L 18 105/59 99 12/12/18 22:03 98.9 F 39 L 19 101/56 95 - Physical Examination General: No Apparent Distress HEENT: Positive: PERRL Neck: Positive: trachea midline Cardiac: Positive: Reg Rate and Rhythm Lungs: Positive: Decreased Breath Sounds Neuro: Positive: Grossly Intact Abdomen: Positive: Soft Skin: Positive: Clear Extremities: Absent: edema - Labs and Meds Cardiac Enzymes 12/13/18 Range/Units Unknown AST 19 (5-40) units/L Coagulation 12/13/18 Range/Units Unknown PT 14.6 (12.2-14.9) Sec. INR 1.17 H (0.87-1.13) APTT 58.7 H (24.2-36.6) Sec. CBC 12/13/18 12/13/18 12/13/18 Range/Units 00:40 07:07 10:40 WBC (4.5-11.0) K/mm3 RBC (3.65-5.03) M/mm3 Hgb 9.7 L D 8.5 L 8.5 L (10.1-14.3) gm/dl Hct 27.6 L D 25.4 L 25.5 L (30.3-42.9) % Plt Count (140-440) K/mm3 12/13/18 12/13/18 Range/Units Unknown Unknown WBC 38.9 H (4.5-11.0) K/mm3 RBC 3.41 L (3.65-5.03) M/mm3 Hgb 9.6 L 9.4 L (10.1-14.3) gm/dl Hct 29.1 L 28.4 L (30.3-42.9) % Plt Count 313 (140-440) K/mm3 Comprehensive Metabolic Panel 12/13/18 12/13/18 Range/Units 07:07 Unknown Sodium 140 140 (137-145) mmol/L Potassium 3.9 4.3 (3.6-5.0) mmol/L Chloride 102.7 100.6 (98-107) mmol/L Carbon Dioxide 27 28 (22-30) mmol/L BUN 25 H 24 H (7-17) mg/dL Creatinine 1.0 1.0 (0.7-1.2) mg/dL Glucose 132 H 178 H (65-100) mg/dL Calcium 8.6 8.7 (8.4-10.2) mg/dL AST 19 (5-40) units/L ALT 36 (7-56) units/L Alkaline Phosphatase 133 H (35-129) units/L Total Protein 5.6 L (6.3-8.2) g/dL Albumin 2.9 L (3.9-5) g/dL
[2018-12-13] MEDS: SINGULAIR PO SCH (18:00)
--- NOTE | 2018-12-13 18:03 | Gastroenterology Progress Note ---
Assessment and Plan # Cardiomyopathy with EF 20% # Runs of V tach. ICD in place # Rectal bleeding - GI reconsulted for large episode of rectal bleeding overnight. - No additional bleeding throughout today. - heparin drip turned off overnight. - H/H down trended to 8 from 12 on 12/11/2018 and stable today. - rectal exam with scant dark blood and small external hemorrhoids Rec: - currently no active bleeding. - CTA was negative for active bleeding. - will need cardiology clearance prior to colonoscopy given runs of vtach, cardiomyopathy with low EF. Patient would like to avoid sedation unless absolutely necessary - monitor H/H. - will follow. - Patient Problems (1) Rectal bleeding Current Visit: Yes Status: Acute Subjective Date of service: 12/13/18 Principal diagnosis: ischemic leg Interval history: GI reconsulted for an episode of large rectal bleeding overnight. Patient became hypotensive and was transferred to the ICU. No BM throughout today. Objective - Constitutional Vitals: Temp Pulse Resp BP Pulse Ox 97.5 F L 89 30 H 102/60 100 12/13/18 05:27 12/13/18 17:00 12/13/18 17:00 12/13/18 17:00 12/13/18 17:00 General appearance: no acute distress - EENT Eyes: EOM intact ENT: hearing intact - Neck Neck: supple - Respiratory Respiratory effort: normal Respiratory: bilateral: CTA - Cardiovascular Rhythm: regular Heart Sounds: Present: S1 & S2 - Gastrointestinal General gastrointestinal: Present: soft, non-tender, non-distended - Neurologic Neurological: alert and oriented x3 - Labs CBC & Chem 7: 12/13/18 Unknown 12/13/18 Unknown Labs: Laboratory Results - last 24 hr 12/12/18 12/13/18 12/13/18 22:09 00:40 07:07 WBC RBC Hgb 9.7 L D Hct 27.6 L D MCV MCH MCHC RDW Plt Count Add Manual Diff Total Counted Seg Neutrophils % Seg Neuts % (Manual) Band Neutrophils % Lymphocytes % (Manual) Reactive Lymphs % (Man) Monocytes % (Manual) Eosinophils % (Manual) Basophils % (Manual) Metamyelocytes % Myelocytes % Promyelocytes % Blast Cells % Nucleated RBC % Seg Neutrophils # Man Band Neutrophils # Lymphocytes # (Manual) Abs React Lymphs (Man) Monocytes # (Manual) Eosinophils # (Manual) Basophils # (Manual) Metamyelocytes # Myelocytes # Promyelocytes # Blast Cells # WBC Morphology Hypersegmented Neuts Hyposegmented Neuts Hypogranular Neuts Smudge Cells Toxic Granulation Toxic Vacuolation Dohle Bodies Pelger-Huet Anomaly Rosalva Rods Platelet Estimate Clumped Platelets Plt Clumps, EDTA Large Platelets Giant Platelets Platelet Satelliting Plt Morphology Comment RBC Morphology Dimorphic RBCs Polychromasia Hypochromasia Poikilocytosis Anisocytosis Microcytosis Macrocytosis Spherocytes Pappenheimer Bodies Sickle Cells Target Cells Tear Drop Cells Ovalocytes Helmet Cells Garza-Wahn[place] Bodies [place] Claudio Cells Bite Cells Crenated Cell Elliptocytes Acanthocytes (Spur) Rouleaux Hemoglobin C Crystals Schistocytes Malaria parasites Dominic Bodies Hem Pathologist Commnt PT INR APTT Heparin Anti-Xa Level Sodium 140 Potassium 3.9 Chloride 102.7 Carbon Dioxide 27 Anion Gap 14 BUN 25 H Creatinine 1.0 Estimated GFR > 60 BUN/Creatinine Ratio 25 Glucose 132 H POC Glucose 302 H Calcium 8.6 Total Bilirubin AST ALT Alkaline Phosphatase Total Protein Albumin Albumin/Globulin Ratio Blood Type Antibody Screen 12/13/18 12/13/18 12/13/18 07:07 08:19 10:40 WBC RBC Hgb 8.5 L 8.5 L Hct 25.4 L 25.5 L MCV MCH MCHC RDW Plt Count Add Manual Diff Total Counted Seg Neutrophils % Seg Neuts % (Manual) Band Neutrophils % Lymphocytes % (Manual) Reactive Lymphs % (Man) Monocytes % (Manual) Eosinophils % (Manual) Basophils % (Manual) Metamyelocytes % Myelocytes % Promyelocytes % Blast Cells % Nucleated RBC % Seg Neutrophils # Man Band Neutrophils # Lymphocytes # (Manual) Abs React Lymphs (Man) Monocytes # (Manual) Eosinophils # (Manual) Basophils # (Manual) Metamyelocytes # Myelocytes # Promyelocytes # Blast Cells # WBC Morphology Hypersegmented Neuts Hyposegmented Neuts Hypogranular Neuts Smudge Cells Toxic Granulation Toxic Vacuolation Dohle Bodies Pelger-Huet Anomaly Rosalva Rods Platelet Estimate Clumped Platelets Plt Clumps, EDTA Large Platelets Giant Platelets Platelet Satelliting Plt Morphology Comment RBC Morphology Dimorphic RBCs Polychromasia Hypochromasia Poikilocytosis Anisocytosis Microcytosis Macrocytosis Spherocytes Pappenheimer Bodies Sickle Cells Target Cells Tear Drop Cells Ovalocytes Helmet Cells Garza-[place] Bodies [place] Cells Bite Cells Crenated Cell Elliptocytes Acanthocytes (Spur) Rouleaux Hemoglobin C Crystals Schistocytes Malaria parasites Dominic Bodies Hem Pathologist Commnt PT INR APTT Heparin Anti-Xa Level Sodium Potassium Chloride Carbon Dioxide Anion Gap BUN Creatinine Estimated GFR BUN/Creatinine Ratio Glucose POC Glucose 149 H Calcium Total Bilirubin AST ALT Alkaline Phosphatase Total Protein Albumin Albumin/Globulin Ratio Blood Type Antibody Screen 12/13/18 12/13/18 12/13/18 11:43 16:58 Unknown WBC 38.9 H RBC 3.41 L Hgb 9.6 L Hct 29.1 L MCV 85 MCH 28 MCHC 33 RDW 18.8 H Plt Count 313 Add Manual Diff Complete Total Counted 100 Seg Neutrophils % Contact Worker Lithography Seg Neuts % (Manual) 86.0 H Band Neutrophils % 0 Lymphocytes % (Manual) 5.0 L Reactive Lymphs % (Man) 0 Monocytes % (Manual) 9.0 H Eosinophils % (Manual) 0 Basophils % (Manual) 0 Metamyelocytes % 0 Myelocytes % 0 Promyelocytes % 0 Blast Cells % 0 Nucleated RBC % Not Reportable Seg Neutrophils # Man 33.5 H Band Neutrophils # 0.0 Lymphocytes # (Manual) 1.9 Abs React Lymphs (Man) 0.0 Monocytes # (Manual) 3.5 H Eosinophils # (Manual) 0.0 Basophils # (Manual) 0.0 Metamyelocytes # 0.0 Myelocytes # 0.0 Promyelocytes # 0.0 Blast Cells # 0.0 WBC Morphology Not Reportable Hypersegmented Neuts Not Reportable Hyposegmented Neuts Not Reportable Hypogranular Neuts Not Reportable Smudge Cells Not Reportable Toxic Granulation Not Reportable Toxic Vacuolation Not Reportable Dohle Bodies Not Reportable Pelger-Huet Anomaly Not Reportable Rosalva Rods Not Reportable Platelet Estimate Not Reportable Clumped Platelets Not Reportable Plt Clumps, EDTA Not Reportable Large Platelets Not Reportable Giant Platelets Not Reportable Platelet Satelliting Not Reportable Plt Morphology Comment Not Reportable RBC Morphology Normal Dimorphic RBCs Not Reportable Polychromasia Not Reportable Hypochromasia Not Reportable Poikilocytosis Not Reportable Anisocytosis Not Reportable Microcytosis Not Reportable Macrocytosis Not Reportable Spherocytes Not Reportable Pappenheimer Bodies Not Reportable Sickle Cells Not Reportable Target Cells Not Reportable Tear Drop Cells Not Reportable Ovalocytes Not Reportable Helmet Cells Not Reportable Garza-[place]ahn[place] Bodies Not Reportable [place] Not Reportable [place] Cells Not Reportable Bite Cells Not Reportable Crenated Cell Not Reportable Elliptocytes Not Reportable Acanthocytes (Spur) Not Reportable Rouleaux Not Reportable Hemoglobin C Crystals Not Reportable Schistocytes Not Reportable Malaria parasites Not Reportable Dominic Bodies Not Reportable Hem Pathologist Commnt No PT INR APTT Heparin Anti-Xa Level Sodium Potassium Chloride Carbon Dioxide Anion Gap BUN Creatinine Estimated GFR BUN/Creatinine Ratio Glucose POC Glucose 163 H 220 H Calcium Total Bilirubin AST ALT Alkaline Phosphatase Total Protein Albumin Albumin/Globulin Ratio Blood Type Antibody Screen 12/13/18 12/13/18 12/13/18 Unknown Unknown Unknown WBC RBC Hgb 9.4 L Hct 28.4 L MCV MCH MCHC RDW Plt Count Add Manual Diff Total Counted Seg Neutrophils % Seg Neuts % (Manual) Band Neutrophils % Lymphocytes % (Manual) Reactive Lymphs % (Man) Monocytes % (Manual) Eosinophils % (Manual) Basophils % (Manual) Metamyelocytes % Myelocytes % Promyelocytes % Blast Cells % Nucleated RBC % Seg Neutrophils # Man Band Neutrophils # Lymphocytes # (Manual) Abs React Lymphs (Man) Monocytes # (Manual) Eosinophils # (Manual) Basophils # (Manual) Metamyelocytes # Myelocytes # Promyelocytes # Blast Cells # WBC Morphology Hypersegmented Neuts Hyposegmented Neuts Hypogranular Neuts Smudge Cells Toxic Granulation Toxic Vacuolation Dohle Bodies Pelger-Huet Anomaly Rosalva Rods Platelet Estimate Clumped Platelets Plt Clumps, EDTA Large Platelets Giant Platelets Platelet Satelliting Plt Morphology Comment RBC Morphology Dimorphic RBCs Polychromasia Hypochromasia Poikilocytosis Anisocytosis Microcytosis Macrocytosis Spherocytes Pappenheimer Bodies Sickle Cells Target Cells Tear Drop Cells Ovalocytes Helmet Cells Garza-[place] Bodies [place] Cells Bite Cells Crenated Cell Elliptocytes Acanthocytes (Spur) Rouleaux Hemoglobin C Crystals Schistocytes Malaria parasites Dominic Bodies Hem Pathologist Commnt PT 14.6 INR 1.17 H APTT 58.7 H Heparin Anti-Xa Level 0.52 Sodium Potassium Chloride Carbon Dioxide Anion Gap BUN Creatinine Estimated GFR BUN/Creatinine Ratio Glucose POC Glucose Calcium Total Bilirubin AST ALT Alkaline Phosphatase Total Protein Albumin Albumin/Globulin Ratio Blood Type B POSITIVE Antibody Screen Negative 12/13/18 Unknown WBC RBC Hgb Hct MCV MCH MCHC RDW Plt Count Add Manual Diff Total Counted Seg Neutrophils % Seg Neuts % (Manual) Band Neutrophils % Lymphocytes % (Manual) Reactive Lymphs % (Man) Monocytes % (Manual) Eosinophils % (Manual) Basophils % (Manual) Metamyelocytes % Myelocytes % Promyelocytes % Blast Cells % Nucleated RBC % Seg Neutrophils # Man Band Neutrophils # Lymphocytes # (Manual) Abs React Lymphs (Man) Monocytes # (Manual) Eosinophils # (Manual) Basophils # (Manual) Metamyelocytes # Myelocytes # Promyelocytes # Blast Cells # WBC Morphology Hypersegmented Neuts Hyposegmented Neuts Hypogranular Neuts Smudge Cells Toxic Granulation Toxic Vacuolation Dohle Bodies Pelger-Huet Anomaly Rosalva Rods Platelet Estimate Clumped Platelets Plt Clumps, EDTA Large Platelets Giant Platelets Platelet Satelliting Plt Morphology Comment RBC Morphology Dimorphic RBCs Polychromasia Hypochromasia Poikilocytosis Anisocytosis Microcytosis Macrocytosis Spherocytes Pappenheimer Bodies Sickle Cells Target Cells Tear Drop Cells Ovalocytes Helmet Cells Garza-[place]ahn[place] Bodies [place] Cells Bite Cells Crenated Cell Elliptocytes Acanthocytes (Spur) Rouleaux Hemoglobin C Crystals Schistocytes Malaria parasites Dominic Bodies Hem Pathologist Commnt PT INR APTT Heparin Anti-Xa Level Sodium 140 Potassium 4.3 Chloride 100.6 Carbon Dioxide 28 Anion Gap 16 BUN 24 H Creatinine 1.0 Estimated GFR > 60 BUN/Creatinine Ratio 24 Glucose 178 H POC Glucose Calcium 8.7 Total Bilirubin 0.60 AST 19 ALT 36 Alkaline Phosphatase 133 H Total Protein 5.6 L Albumin 2.9 L Albumin/Globulin Ratio 1.1 Blood Type Antibody Screen
[2018-12-13 19:19] LABS: Hematocrit 24.6 % (30.3-42.9); Hemoglobin 8.1 gm/dl (10.1-14.3)
[2018-12-13] MEDS: TYLENOL PO PRN (20:30)
[2018-12-13] MEDS: ELAVIL PO SCH (22:02)
[2018-12-13 23:18] LABS: Hematocrit 22.3 % (30.3-42.9); Hemoglobin 7.4 gm/dl (10.1-14.3)
[2018-12-14 04:44] LABS: Hematocrit 21.6 % (30.3-42.9); Hemoglobin 7.3 gm/dl (10.1-14.3); Mean Corpuscular HGB Conc 34 % (30-34); Mean Corpuscular Volume 85 fl (79-97); Platelet Count 251 K/mm3 (140-440); Red Blood Count 2.55 M/mm3 (3.65-5.03); Red Cell Distribution Width 18.5 % (13.2-15.2)
[2018-12-14 04:57] LABS: BUN/Creatinine Ratio 19; Blood Urea Nitrogen 21 mg/dL (7-17); Calcium 8.6 mg/dL (8.4-10.2); Hemolysis Index 3
[2018-12-14] MEDS: XANAX PO PRN (04:57)
[2018-12-14 05:32] LABS: Basophils % (Manual) 0 % (0.0-1.8); Eosinophils % (Manual) 0 % (0.0-4.3); Total Cells Counted 100
[2018-12-14 05:33] LABS: Anisocytosis 1+; Macrocytosis Few
[2018-12-14 05:34] LABS: Platelet Estimate Consistent w Auto
[2018-12-14] MEDS ORDERED: NACL 0.9% 250ML 250 ML IV ONE (05:37)
[2018-12-14] MEDS ORDERED: NEO-SYNEPHRINE 100 MG in NACL 0.9% 90 ML IV SCH (06:00)
--- NOTE | 2018-12-14 07:05 | Hem/Onc Progress Note ---
Assessment and Plan Peripheral extremities both lower and left upper extremity thromboembolic disease. This may be related to her generalized disease etiology versus rheumatology issue versus embolic phenomena. There was a question if this is HIT. However, the platelet count is not low. HIT test Negative 1. h/o Elevated bilirubin. 2. h/o Electrolyte imbalance. 3. Arterial thrombus, on anticoagulation. 4. h/o Diabetic ketoacidosis. 5. h/o Hypertension. 6. h/o Ischemic cardiomyopathy with low ejection fraction. 7. h/o Respiratory failure. 8. h/o Sepsis, elevated troponin /CPK. I will follow the patient during inpatient stay and then in the clinic setting. The cause of thromboembolism is not clear. echo done RODNEY Done HIT negative high hct likely sec to sleep apnea dark toes - with arterial thrombus HIT neg - hence IV heparin was used there is a question if her signs and symptoms are sec to rheumatology issues vascular team and sx team to decide timing for any procedure 12/14 due to GI bleed - off heparin - low EF - Patient Problems (1) Ischemia Current Visit: Yes Status: Acute Subjective Date of service: 12/14/18 Principal diagnosis: ischemic foot Interval history: h/o GI bleed - off heparin Objective - Exam Narrative Exam: Pain - hand and leg General appearance pain Performance status limited self care Eyes - no icterus ENT - no bleeding LNs cervical not palpable Neck - no LN Respiratory Normal Breath sounds - CTA CVS S1 S2 + Extremities cold toes and dark left hand finger General GI Soft Rectal deferred female - deferred Skin warm Musculoskeletal moving extremitites - dark foot and left hand finger Neurologically awake - Constitutional Vitals: Last Vital Signs Temp 97.5 F L 12/14/18 03:47 Pulse 141 H 12/14/18 05:12 Resp 26 H 12/14/18 05:00 BP 82/58 12/14/18 05:00 Pulse Ox 100 12/14/18 05:00 - Labs Lab Results: Laboratory Results - last 24 hr 12/13/18 12/13/18 12/13/18 07:07 07:07 08:19 WBC RBC Hgb 8.5 L Hct 25.4 L MCV MCH MCHC RDW Plt Count Add Manual Diff Total Counted Seg Neuts % (Manual) Band Neutrophils % Lymphocytes % (Manual) Reactive Lymphs % (Man) Monocytes % (Manual) Eosinophils % (Manual) Basophils % (Manual) Metamyelocytes % Myelocytes % Promyelocytes % Blast Cells % Nucleated RBC % Seg Neutrophils # Man Band Neutrophils # Lymphocytes # (Manual) Abs React Lymphs (Man) Monocytes # (Manual) Eosinophils # (Manual) Basophils # (Manual) Metamyelocytes # Myelocytes # Promyelocytes # Blast Cells # WBC Morphology Hypersegmented Neuts Hyposegmented Neuts Hypogranular Neuts Smudge Cells Toxic Granulation Toxic Vacuolation Dohle Bodies Pelger-Huet Anomaly Rosalva Rods Platelet Estimate Clumped Platelets Plt Clumps, EDTA Large Platelets Giant Platelets Platelet Satelliting Plt Morphology Comment RBC Morphology Dimorphic RBCs Polychromasia Hypochromasia Poikilocytosis Anisocytosis Microcytosis Macrocytosis Spherocytes Pappenheimer Bodies Sickle Cells Target Cells Tear Drop Cells Ovalocytes Helmet Cells Garza-Nutrioso Bodies [place] Rings Claudio Cells Bite Cells Crenated Cell Elliptocytes Acanthocytes (Spur) Rouleaux Hemoglobin C Crystals Schistocytes Malaria parasites Dominic Bodies Hem Pathologist Commnt Sodium 140 Potassium 3.9 Chloride 102.7 Carbon Dioxide 27 Anion Gap 14 BUN 25 H Creatinine 1.0 Estimated GFR > 60 BUN/Creatinine Ratio 25 Glucose 132 H POC Glucose 149 H Calcium 8.6 12/13/18 12/13/18 12/13/18 10:40 11:43 16:58 WBC RBC Hgb 8.5 L Hct 25.5 L MCV MCH MCHC RDW Plt Count Add Manual Diff Total Counted Seg Neuts % (Manual) Band Neutrophils % Lymphocytes % (Manual) Reactive Lymphs % (Man) Monocytes % (Manual) Eosinophils % (Manual) Basophils % (Manual) Metamyelocytes % Myelocytes % Promyelocytes % Blast Cells % Nucleated RBC % Seg Neutrophils # Man Band Neutrophils # Lymphocytes # (Manual) Abs React Lymphs (Man) Monocytes # (Manual) Eosinophils # (Manual) Basophils # (Manual) Metamyelocytes # Myelocytes # Promyelocytes # Blast Cells # WBC Morphology Hypersegmented Neuts Hyposegmented Neuts Hypogranular Neuts Smudge Cells Toxic Granulation Toxic Vacuolation Dohle Bodies Pelger-Huet Anomaly Rosalva Rods Platelet Estimate Clumped Platelets Plt Clumps, EDTA Large Platelets Giant Platelets Platelet Satelliting Plt Morphology Comment RBC Morphology Dimorphic RBCs Polychromasia Hypochromasia Poikilocytosis Anisocytosis Microcytosis Macrocytosis Spherocytes Pappenheimer Bodies Sickle Cells Target Cells Tear Drop Cells Ovalocytes Helmet Cells Garza-Nutrioso Bodies [place] Rings Claudio Cells Bite Cells Crenated Cell Elliptocytes Acanthocytes (Spur) Rouleaux Hemoglobin C Crystals Schistocytes Malaria parasites Dominic Bodies Hem Pathologist Commnt Sodium Potassium Chloride Carbon Dioxide Anion Gap BUN Creatinine Estimated GFR BUN/Creatinine Ratio Glucose POC Glucose 163 H 220 H Calcium 12/13/18 12/13/18 12/13/18 17:55 21:32 22:15 WBC RBC Hgb 8.1 L 7.4 L Hct 24.6 L 22.3 L MCV MCH MCHC RDW Plt Count Add Manual Diff Total Counted Seg Neuts % (Manual) Band Neutrophils % Lymphocytes % (Manual) Reactive Lymphs % (Man) Monocytes % (Manual) Eosinophils % (Manual) Basophils % (Manual) Metamyelocytes % Myelocytes % Promyelocytes % Blast Cells % Nucleated RBC % Seg Neutrophils # Man Band Neutrophils # Lymphocytes # (Manual) Abs React Lymphs (Man) Monocytes # (Manual) Eosinophils # (Manual) Basophils # (Manual) Metamyelocytes # Myelocytes # Promyelocytes # Blast Cells # WBC Morphology Hypersegmented Neuts Hyposegmented Neuts Hypogranular Neuts Smudge Cells Toxic Granulation Toxic Vacuolation Dohle Bodies Pelger-Huet Anomaly Rosalva Rods Platelet Estimate Clumped Platelets Plt Clumps, EDTA Large Platelets Giant Platelets Platelet Satelliting Plt Morphology Comment RBC Morphology Dimorphic RBCs Polychromasia Hypochromasia Poikilocytosis Anisocytosis Microcytosis Macrocytosis Spherocytes Pappenheimer Bodies Sickle Cells Target Cells Tear Drop Cells Ovalocytes Helmet Cells Garza-Nutrioso Bodies [place] Rings [place] Cells Bite Cells Crenated Cell Elliptocytes Acanthocytes (Spur) Rouleaux Hemoglobin C Crystals Schistocytes Malaria parasites Dominic Bodies Hem Pathologist Commnt Sodium Potassium Chloride Carbon Dioxide Anion Gap BUN Creatinine Estimated GFR BUN/Creatinine Ratio Glucose POC Glucose 151 H Calcium 12/14/18 12/14/18 04:05 04:05 WBC 25.4 H RBC 2.55 L Hgb 7.3 L Hct 21.6 L MCV 85 MCH 29 MCHC 34 RDW 18.5 H Plt Count 251 Add Manual Diff Complete Total Counted 100 Seg Neuts % (Manual) 88.0 H Band Neutrophils % 0 Lymphocytes % (Manual) 7.0 L Reactive Lymphs % (Man) 0 Monocytes % (Manual) 5.0 Eosinophils % (Manual) 0 Basophils % (Manual) 0 Metamyelocytes % 0 Myelocytes % 0 Promyelocytes % 0 Blast Cells % 0 Nucleated RBC % Not Reportable Seg Neutrophils # Man 22.4 H Band Neutrophils # 0.0 Lymphocytes # (Manual) 1.8 Abs React Lymphs (Man) 0.0 Monocytes # (Manual) 1.3 H Eosinophils # (Manual) 0.0 Basophils # (Manual) 0.0 Metamyelocytes # 0.0 Myelocytes # 0.0 Promyelocytes # 0.0 Blast Cells # 0.0 WBC Morphology Not Reportable Hypersegmented Neuts Not Reportable Hyposegmented Neuts Not Reportable Hypogranular Neuts Not Reportable Smudge Cells Not Reportable Toxic Granulation Not Reportable Toxic Vacuolation Not Reportable Dohle Bodies Not Reportable Pelger-Huet Anomaly Not Reportable Rosalva Rods Not Reportable Platelet Estimate Consistent w auto Clumped Platelets Not Reportable Plt Clumps, EDTA Not Reportable Large Platelets Not Reportable Giant Platelets Not Reportable Platelet Satelliting Not Reportable Plt Morphology Comment Not Reportable RBC Morphology Not Reportable Dimorphic RBCs Not Reportable Polychromasia Not Reportable Hypochromasia Not Reportable Poikilocytosis Not Reportable Anisocytosis 1+ Microcytosis Not Reportable Macrocytosis Few Spherocytes Not Reportable Pappenheimer Bodies Not Reportable Sickle Cells Not Reportable Target Cells Not Reportable Tear Drop Cells Not Reportable Ovalocytes Not Reportable Helmet Cells Not Reportable Garza-Nutrioso Bodies Not Reportable [place] Rings Not Reportable Claudio Cells Not Reportable Bite Cells Not Reportable Crenated Cell Not Reportable Elliptocytes Not Reportable Acanthocytes (Spur) Not Reportable Rouleaux Not Reportable Hemoglobin C Crystals Not Reportable Schistocytes Not Reportable Malaria parasites Not Reportable Dominic Bodies Not Reportable Hem Pathologist Commnt No Sodium 137 Potassium 3.8 Chloride 100.1 Carbon Dioxide 28 Anion Gap 13 BUN 21 H Creatinine 1.1 Estimated GFR > 60 BUN/Creatinine Ratio 19 Glucose 79 POC Glucose Calcium 8.6 Medications & Allergies - Medications Allergies/Adverse Reactions: Allergies lisinopril Adverse Reaction (Severe, Verified 12/17/13 19:00) SORE THROAT;PERSISTENT COUGH Home Medications: Home Medications Medication Instructions Recorded Confirmed Last Taken Type Aspirin [Aspirin BABY CHEW TAB] 81 mg PO QDAY 11/28/18 11/29/18 11/26/18 History Fluticasone [Flonase] 1 spray NS BID 11/28/18 11/28/18 Unknown History Furosemide [Lasix TAB] 40 mg PO BID 11/28/18 11/28/18 Unknown History Ibuprofen [Motrin] 600 mg PO Q6H PRN 11/28/18 11/28/18 Unknown History Montelukast [Singulair] 10 mg PO QPM 11/28/18 11/28/18 Unknown History Mycophenolate [Cellcept] 500 mg PO BID 11/28/18 11/28/18 Unknown History Mycophenolate [Cellcept] 500 mg PO BID PRN MDD 2 TABS 11/28/18 11/28/18 Unknown History Pantoprazole [Protonix] 40 mg PO QDAY 11/28/18 11/28/18 Unknown History Sacubitril/Valsartan [Entresto 1 each PO BID 11/28/18 11/28/18 Unknown History 49-51 mg] predniSONE [Deltasone] 50 mg PO QDAY 11/28/18 11/28/18 Unknown History raNITIdine HCl [Zantac] 150 mg PO BID 11/28/18 11/28/18 Unknown History Amitriptyline [Elavil] 25 mg PO HS 11/29/18 11/29/18 11/26/18 History Aspirin [Adult Aspirin] 81 mg PO ONCE 11/29/18 11/29/18 11/26/18 History Entresto 49-51 mg 49 mg PO BID 11/29/18 11/29/18 11/26/18 History HYDROcodone/APAP 5-325 5 mg PO Q6HR PRN 11/29/18 11/29/18 Unknown History Active Medications: Generic Name Dose Route Start Last Admin Trade Name Freq PRN Reason Stop Dose Admin Acetaminophen 650 mg 11/28/18 03:02 12/13/18 20:30 Tylenol PO 650 mg Q4H PRN Administration Pain MILD(1-3)/Fever >100.5/TURPIN Alprazolam 0.25 mg 11/30/18 01:09 12/14/18 04:57 Xanax PO 0.25 mg Q8H PRN Administration Anxiety Amiodarone HCl 200 mg 12/02/18 12:00 12/13/18 22:02 Cordarone PO 200 mg BID VIOLA Administration Amitriptyline HCl 25 mg 11/29/18 22:00 12/13/18 22:02 Elavil PO 25 mg HS VIOLA Administration Dextrose 0 ml 11/28/18 02:19 D50w (25gm) Syringe IV PRN PRN Hypoglycemia Fluticasone Propionate 50 mcg 11/29/18 10:00 12/13/18 22:02 Flonase NS 50 mcg BID VIOLA Administration Hydrophilic Ointment 1 applic 11/30/18 11:55 Vaseline Lip Therapy TP DIRECT PRN DRY LIPS Sodium Chloride 1,000 mls @ 125 mls/hr 12/02/18 13:00 12/03/18 11:24 Nacl 0.9% 1000 Ml IV 0 mls/hr DIRECT VIOLA Infusion Phenylephrine HCl 100 mg/ 100 mls @ 3 mls/hr 12/14/18 06:00 12/14/18 06:12 Sodium Chloride IV 50 mcg/min TITR VIOLA 3 mls/hr Administration Protocol 50 MCG/MIN Insulin Human Isoph/Insulin Regular 24 unit 12/10/18 09:00 12/13/18 17:00 Humulin 70/30 SUB-Q 24 unit BIDDIAB VIOLA Administration Insulin Human Lispro 0 unit 11/30/18 09:00 12/13/18 22:43 Humalog SUB-Q Not Given ACHS VIOLA Protocol Montelukast Sodium 10 mg 11/29/18 18:00 12/13/18 18:00 Singulair PO 10 mg QPM VIOLA Administration Morphine Sulfate 2 mg 11/28/18 03:02 12/07/18 23:08 Morphine IV 2 mg Q4H PRN Administration Pain, Moderate (4-6) Ondansetron HCl 4 mg 11/28/18 03:02 Zofran IV Q8H PRN Nausea And Vomiting Pantoprazole Sodium 40 mg 12/13/18 10:00 12/13/18 22:02 Protonix IV 40 mg BID VIOLA Administration Prednisone 50 mg 11/29/18 10:00 12/13/18 09:43 Deltasone PO Not Given QDAY VIOLA Sodium Chloride 10 ml 11/28/18 10:00 12/13/18 22:02 Sodium Chloride Flush Syringe 10 Ml IV 10 ml BID VIOLA Administration Sodium Chloride 10 ml 11/28/18 03:02 Sodium Chloride Flush Syringe 10 Ml IV PRN PRN LINE FLUSH
[2018-12-14] MEDS: HumaLOG SUB-Q SCH ×3 (07:30→16:30)
[2018-12-14] MEDS ORDERED: NACL 0.9% 500 ML 500 ML IV NR (08:30)
[2018-12-14] MEDS: DELTASONE PO SCH (09:39)
[2018-12-14] MEDS: FLONASE NS SCH ×2 (10:00→22:00)
[2018-12-14] MEDS: SODIUM CHLORIDE FLUSH SYRINGE 10 ML IV SCH ×2 (10:00→22:01)
[2018-12-14] MEDS: CORDARONE PO SCH ×2 (10:00→22:00)
[2018-12-14] MEDS: PROTONIX IV SCH ×2 (10:00→21:55)
--- NOTE | 2018-12-14 10:15 | Event Note ---
Date: 12/14/18 Patient had massive GI bleed on heparin preventing further anticoagulation. Whether the cause was severe raynaud's or embolic issues, cannot be further anticoagulated. No plans for any endovascular or open interventions at this time. Patient will need to demarcate her L UE digits and B LE feet. Once demarcated, can decide upon level of amputation. Will need to followup with orthopedics for L UE digits. If patient needs TMA, will need to followup also with Dr. Aguiar who performs TMA. If BKA required, then can followup with vascular. May need all followups until level of amputation decided upon based on demarcation.
[2018-12-14 12:29] LABS: ANA Screen, IFA Positive (Negative)
--- NOTE | 2018-12-14 12:33 | Progress Note ---
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 Decreased left ventricular systolic function 20-25%. RODNEY reports a small mobile echogenic density noted on the PM wire on the RA side - this is likely a small thrombus given negative blood cultures. This is on the right side of the heart and therefore has nothing to do with her upper extremity process. Typically we recommend systemic anticoagulation for 3 months then re- imaging to document resolution of the small clot. Subjective Date of service: 12/14/18 Principal diagnosis: ischemic extremities Interval history: Rapid atrial flutter on telemetry. Patient remains asymptomatic. Current blood pressure at 99/68. Objective Vital Signs Temp Pulse Pulse Resp Resp BP Pulse Ox 12/14/18 12:00 97.6 F 12/14/18 11:00 142 H 21 107/78 100 12/14/18 10:00 139 H 36 H 106/58 99 12/14/18 09:00 143 H 18 84/41 12/14/18 08:02 100 12/14/18 08:00 141 H 140 H 36 H 104/51 100 12/14/18 07:48 98.3 F 12/14/18 07:00 139 H 35 H 90/61 100 12/14/18 06:00 141 H 35 H 84/63 100 12/14/18 05:12 141 H 12/14/18 05:00 146 H 26 H 82/58 100 12/14/18 04:00 90 90 34 H 104/52 100 12/14/18 03:47 97.5 F L 12/14/18 03:00 92 H 28 H 86/48 100 12/14/18 02:00 96 H 30 H 93/52 100 12/14/18 01:00 97 H 27 H 93/38 100 12/14/18 00:00 99 H 99 H 33 H 97/44 100 12/13/18 23:28 91 H 24 92/49 100 12/13/18 23:19 98.5 F 12/13/18 23:00 89 27 H 92/49 100 12/13/18 22:00 99 H 33 H 93/51 100 12/13/18 21:30 28 H 12/13/18 21:00 91 H 32 H 99/57 100 12/13/18 20:30 26 H 12/13/18 20:00 97.6 F 96 H 96 H 32 H 26 H 100/56 100 12/13/18 19:00 113 H 29 H 97/46 12/13/18 18:00 90 34 H 102/60 52 L 12/13/18 17:00 89 30 H 102/60 100 12/13/18 16:00 92 H 28 H 101/53 96 12/13/18 15:00 94 H 25 H 74/35 100 12/13/18 14:00 99 H 24 86/47 98 12/13/18 13:00 101 H 33 H 93/48 - Physical Examination General: No Apparent Distress HEENT: Positive: PERRL Neck: Positive: trachea midline Cardiac: Positive: irregularly irregular Lungs: Positive: Decreased Breath Sounds Neuro: Positive: Grossly Intact Abdomen: Positive: Soft Extremities: Absent: edema - Labs and Meds CBC 12/13/18 12/13/18 12/14/18 Range/Units 17:55 22:15 04:05 WBC 25.4 H (4.5-11.0) K/mm3 RBC 2.55 L (3.65-5.03) M/mm3 Hgb 8.1 L 7.4 L 7.3 L (10.1-14.3) gm/dl Hct 24.6 L 22.3 L 21.6 L (30.3-42.9) % Plt Count 251 (140-440) K/mm3 Comprehensive Metabolic Panel 12/14/18 Range/Units 04:05 Sodium 137 (137-145) mmol/L Potassium 3.8 (3.6-5.0) mmol/L Chloride 100.1 (98-107) mmol/L Carbon Dioxide 28 (22-30) mmol/L BUN 21 H (7-17) mg/dL Creatinine 1.1 (0.7-1.2) mg/dL Glucose 79 (65-100) mg/dL Calcium 8.6 (8.4-10.2) mg/dL
--- NOTE | 2018-12-14 12:50 | Gastroenterology Progress Note ---
Assessment and Plan 1.rectal bleeding -H/H 7.3/21.6-stable -continue to monitor H/H and transfuse as needed -no active signs of bleeding overnight or this am -heparin drip/anticoagulation on hold -CTA 12/13 negative for active bleeding -consider colonoscopy based on clinical course/progress once medically stable and cleared per cardiology (currently in ICU with recurrence of Aflutter with HR 140s and hypotensive requiring pressor support; cardiomyopathy with EF 20%; ICD in place) -if bleeding reoccurs, recommend stat bleeding scan vs CTA -continue PPI and supportive care -will follow Subjective Date of service: 12/14/18 Principal diagnosis: GI bleeding Interval history: No active signs of bleeding overnight or this am. Denies abd pain or N/v. Objective - Constitutional Vitals: Temp Pulse Resp BP Pulse Ox 98.0 F 139 H 28 H 105/48 25 L 12/14/18 12:19 12/14/18 12:19 12/14/18 12:19 12/14/18 12:19 12/14/18 12:19 General appearance: no acute distress, obese - Respiratory Respiratory effort: normal - Cardiovascular Rhythm: other (tachycardia) - Gastrointestinal General gastrointestinal: Present: soft, non-tender, non-distended, normal bowel sounds - Neurologic Neurological: alert and oriented x3 - Labs CBC & Chem 7: 12/14/18 04:05 12/14/18 04:05 Labs: Laboratory Results - last 24 hr 12/03/18 12/13/18 12/13/18 14:33 16:58 17:55 WBC RBC Hgb 8.1 L Hct 24.6 L MCV MCH MCHC RDW Plt Count Add Manual Diff Total Counted Seg Neuts % (Manual) Band Neutrophils % Lymphocytes % (Manual) Reactive Lymphs % (Man) Monocytes % (Manual) Eosinophils % (Manual) Basophils % (Manual) Metamyelocytes % Myelocytes % Promyelocytes % Blast Cells % Nucleated RBC % Seg Neutrophils # Man Band Neutrophils # Lymphocytes # (Manual) Abs React Lymphs (Man) Monocytes # (Manual) Eosinophils # (Manual) Basophils # (Manual) Metamyelocytes # Myelocytes # Promyelocytes # Blast Cells # WBC Morphology Hypersegmented Neuts Hyposegmented Neuts Hypogranular Neuts Smudge Cells Toxic Granulation Toxic Vacuolation Dohle Bodies Pelger-Huet Anomaly Rosalva Rods Platelet Estimate Clumped Platelets Plt Clumps, EDTA Large Platelets Giant Platelets Platelet Satelliting Plt Morphology Comment RBC Morphology Dimorphic RBCs Polychromasia Hypochromasia Poikilocytosis Anisocytosis Microcytosis Macrocytosis Spherocytes Pappenheimer Bodies Sickle Cells Target Cells Tear Drop Cells Ovalocytes Helmet Cells Garza-Shalimar Bodies [place]ylo Rings Starr Cells Bite Cells Crenated Cell Elliptocytes Acanthocytes (Spur) Rouleaux Hemoglobin C Crystals Schistocytes Malaria parasites Dominic Bodies Hem Pathologist Commnt Sodium Potassium Chloride Carbon Dioxide Anion Gap BUN Creatinine Estimated GFR BUN/Creatinine Ratio Glucose POC Glucose 220 H Calcium THERESE Screen Positive H Blood Type Antibody Screen Crossmatch 12/13/18 12/13/18 12/13/18 21:32 22:15 Unknown WBC RBC Hgb 7.4 L Hct 22.3 L MCV MCH MCHC RDW Plt Count Add Manual Diff Total Counted Seg Neuts % (Manual) Band Neutrophils % Lymphocytes % (Manual) Reactive Lymphs % (Man) Monocytes % (Manual) Eosinophils % (Manual) Basophils % (Manual) Metamyelocytes % Myelocytes % Promyelocytes % Blast Cells % Nucleated RBC % Seg Neutrophils # Man Band Neutrophils # Lymphocytes # (Manual) Abs React Lymphs (Man) Monocytes # (Manual) Eosinophils # (Manual) Basophils # (Manual) Metamyelocytes # Myelocytes # Promyelocytes # Blast Cells # WBC Morphology Hypersegmented Neuts Hyposegmented Neuts Hypogranular Neuts Smudge Cells Toxic Granulation Toxic Vacuolation Dohle Bodies Pelger-Huet Anomaly Rosalva Rods Platelet Estimate Clumped Platelets Plt Clumps, EDTA Large Platelets Giant Platelets Platelet Satelliting Plt Morphology Comment RBC Morphology Dimorphic RBCs Polychromasia Hypochromasia Poikilocytosis Anisocytosis Microcytosis Macrocytosis Spherocytes Pappenheimer Bodies Sickle Cells Target Cells Tear Drop Cells Ovalocytes Helmet Cells Garza-Shalimar Bodies [place]ylo Rings Starr Cells Bite Cells Crenated Cell Elliptocytes Acanthocytes (Spur) Rouleaux Hemoglobin C Crystals Schistocytes Malaria parasites Dominic Bodies Hem Pathologist Commnt Sodium Potassium Chloride Carbon Dioxide Anion Gap BUN Creatinine Estimated GFR BUN/Creatinine Ratio Glucose POC Glucose 151 H Calcium THERESE Screen Blood Type B POSITIVE Antibody Screen Negative Crossmatch See Detail 12/14/18 12/14/18 12/14/18 04:05 04:05 08:10 WBC 25.4 H RBC 2.55 L Hgb 7.3 L Hct 21.6 L MCV 85 MCH 29 MCHC 34 RDW 18.5 H Plt Count 251 Add Manual Diff Complete Total Counted 100 Seg Neuts % (Manual) 88.0 H Band Neutrophils % 0 Lymphocytes % (Manual) 7.0 L Reactive Lymphs % (Man) 0 Monocytes % (Manual) 5.0 Eosinophils % (Manual) 0 Basophils % (Manual) 0 Metamyelocytes % 0 Myelocytes % 0 Promyelocytes % 0 Blast Cells % 0 Nucleated RBC % Not Reportable Seg Neutrophils # Man 22.4 H Band Neutrophils # 0.0 Lymphocytes # (Manual) 1.8 Abs React Lymphs (Man) 0.0 Monocytes # (Manual) 1.3 H Eosinophils # (Manual) 0.0 Basophils # (Manual) 0.0 Metamyelocytes # 0.0 Myelocytes # 0.0 Promyelocytes # 0.0 Blast Cells # 0.0 WBC Morphology Not Reportable Hypersegmented Neuts Not Reportable Hyposegmented Neuts Not Reportable Hypogranular Neuts Not Reportable Smudge Cells Not Reportable Toxic Granulation Not Reportable Toxic Vacuolation Not Reportable Dohle Bodies Not Reportable Pelger-Huet Anomaly Not Reportable Rosalva Rods Not Reportable Platelet Estimate Consistent w auto Clumped Platelets Not Reportable Plt Clumps, EDTA Not Reportable Large Platelets Not Reportable Giant Platelets Not Reportable Platelet Satelliting Not Reportable Plt Morphology Comment Not Reportable RBC Morphology Not Reportable Dimorphic RBCs Not Reportable Polychromasia Not Reportable Hypochromasia Not Reportable Poikilocytosis Not Reportable Anisocytosis 1+ Microcytosis Not Reportable Macrocytosis Few Spherocytes Not Reportable Pappenheimer Bodies Not Reportable Sickle Cells Not Reportable Target Cells Not Reportable Tear Drop Cells Not Reportable Ovalocytes Not Reportable Helmet Cells Not Reportable Garza-Shalimar Bodies Not Reportable Mylo Rings Not Reportable Starr Cells Not Reportable Bite Cells Not Reportable Crenated Cell Not Reportable Elliptocytes Not Reportable Acanthocytes (Spur) Not Reportable Rouleaux Not Reportable Hemoglobin C Crystals Not Reportable Schistocytes Not Reportable Malaria parasites Not Reportable Dominic Bodies Not Reportable Hem Pathologist Commnt No Sodium 137 Potassium 3.8 Chloride 100.1 Carbon Dioxide 28 Anion Gap 13 BUN 21 H Creatinine 1.1 Estimated GFR > 60 BUN/Creatinine Ratio 19 Glucose 79 POC Glucose 90 Calcium 8.6 THERESE Screen Blood Type Antibody Screen Crossmatch 12/14/18 11:25 WBC RBC Hgb Hct MCV MCH MCHC RDW Plt Count Add Manual Diff Total Counted Seg Neuts % (Manual) Band Neutrophils % Lymphocytes % (Manual) Reactive Lymphs % (Man) Monocytes % (Manual) Eosinophils % (Manual) Basophils % (Manual) Metamyelocytes % Myelocytes % Promyelocytes % Blast Cells % Nucleated RBC % Seg Neutrophils # Man Band Neutrophils # Lymphocytes # (Manual) Abs React Lymphs (Man) Monocytes # (Manual) Eosinophils # (Manual) Basophils # (Manual) Metamyelocytes # Myelocytes # Promyelocytes # Blast Cells # WBC Morphology Hypersegmented Neuts Hyposegmented Neuts Hypogranular Neuts Smudge Cells Toxic Granulation Toxic Vacuolation Dohle Bodies Pelger-Huet Anomaly Rosalva Rods Platelet Estimate Clumped Platelets Plt Clumps, EDTA Large Platelets Giant Platelets Platelet Satelliting Plt Morphology Comment RBC Morphology Dimorphic RBCs Polychromasia Hypochromasia Poikilocytosis Anisocytosis Microcytosis Macrocytosis Spherocytes Pappenheimer Bodies Sickle Cells Target Cells Tear Drop Cells Ovalocytes Helmet Cells Garza-Shalimar Bodies Mylo Rings Starr Cells Bite Cells Crenated Cell Elliptocytes Acanthocytes (Spur) Rouleaux Hemoglobin C Crystals Schistocytes Malaria parasites Dominic Bodies Hem Pathologist Commnt Sodium Potassium Chloride Carbon Dioxide Anion Gap BUN Creatinine Estimated GFR BUN/Creatinine Ratio Glucose POC Glucose 249 H Calcium THERESE Screen Blood Type Antibody Screen Crossmatch
[2018-12-14] MEDS: LANOXIN IV SCH ×2 (13:30→17:44)
[2018-12-14 16:13] LABS: Hematocrit 27.1 % (30.3-42.9); Hemoglobin 8.9 gm/dl (10.1-14.3)
--- NOTE | 2018-12-14 17:01 | Progress Note ---
Assessment and Plan / Acute rectal bleeding - s/p one unit FFP, hold heparin - has had GI bleeding/epistaxis/vaginal bleeding after starting heparin prior - will f/u GI recommendation, cont to monitor h/h - dropped hb below 8 - considering extensive cardiac history transfused one unit PRBC /Paroxysmal Afib/flutter - Due to low blood pressure, she may not tolerate typical AV node blockers. - Per cardiology started on digoxin load and maintenance, and increased oral amiodarone. /Ischemic lower > upper extremity with dry gangrene. Vasc Surgery following Dr. Hernandez, plan for amputation when clear line of demarcation achieved - patient can f/u as outpt as it may take few weeks HIT panel -negative, F/U labs for vasculitis--CRP, sedimentation rate, anti-Ro, anti-la, anti-Maritza 1, AMA, ANCA, rheumatoid factor. Anti-ccp /Hyperosmolar hyperglycemic state (HHS) in a newly diagnosed Diabetes-new onset Patient was admitted to the ICU on insulin drip, now off Insulin drip Continue serial BMP level monitoring, Cont. Novolin 70/30 /Diabetes mellitus type 2-new onset, cont SSI /SIRS with leukemoid reaction Present on admission with leukocytosis, tachycardia, tachypnea. Likely from limb ischemia. No acute signs of infection at the present time. Continue off antibiotics. CT abd/pelvis showed generalized bronchiectasis Blood cultures no growth /Vtach s/p shocked 8 tiemes by AICD, as per interrogation, notes in paper chart Cont. Amiodarone cardiology following, d/c BB today for hypotemsion /Metabolic encephalopathy, resolved Head CT scan negative We'll monitor clinically /-Acute hypoxic respiratory failure. O2 and BiPAP as clinically indicated. /-CATRACHO Continue CPAP during sleep and when necessary. /-Interstitial lung disease. Continue per pulmonary. nebs as needed /Systemic sclerosis, celcept on hold /-Elevated troponin; nonspecific supportive care /-EDGARDO; Probably vasomotor nephropathy due to dehydration Resolved /Abnormal LFT Probably due to acute process -CT abd/pelvis negative for liver pathology -We'll monitor levels /-Hypotension - s/p levophed /Cardiomyopathy with EF of 20-25% -Status post AICD placement -No acute exacerbation /GERD -On famotidine /Severe malnutrition/hypoalbuminemia: Nutrition consult /DVT prophylaxis: off hold heparin now for rectal bleeding Disposition; PAULO and outpt f/u for possible amputation Brief History: 38-year-old female patient with history of scleroderma severe cardiomyopathy history of V. fib V. tach runs status post ICD and recently started on CellCept who was brought to the ED via EMS on account of generalized weakness,confusion, multiple episodes of nausea with vomiting generalized weakness and poor oral intake. Also noted some bluish discoloration of her feet which prompted her significant other to call 911. She noted to have BG of 1088, placed on insulin drip, admitted to ICU. Vascular, hematology oncologist evaluated the patient, started on heparin drip for bilateral lower extremity ischemia with the development of cyanotic bilateral feet and cyanotic left upper extremity left middle digit. Had brief episode of GI bleeding, GI evaluated the patient, since patient did not have new episodes of GI bleeding, advised to continue heparin d rip and closely monitor H&H. Orthopedic has evaluated the patient and is planning surgery once the demarcation of ischemia is clear. Now she had rectal bleeding 12/12 and off heparin drip, vascular/ortho now to plan for amputation as outpt. Hospitalist Physical exam: GENERAL: lying on bed appeared to be in no discomfort. HEENT: Normocephalic. Atraumatic. No conjunctival congestion or icterus. Patient has moist mucous membranes. NECK: Supple. Trachea midline. CHEST/LUNGS: Clear to auscultated bilaterally, breathing nonlabored. No wheezes crackles or rhonchi. HEART/CARDIOVASCULAR: Regular in rate and rhythm. S1 and S2 positive. ABDOMEN: Abdomen is soft, nontender. Patient has normal bowel sounds. SKIN: bruises over arms. Warm and dry. NEURO: No focal motor deficit. Follows command. MUSCULOSKELETAL: No joint effusion or tenderness. EXTRIMITY: + cyanosis on b/l LE, The bilateral feet are warm, but there is ischemic, partially demarcated tissue at the midfoot near the hindfoot and the forefoot on the right side and left forefoot on the left side. PSYCH: Cooperative. Subjective Date of service: 12/14/18 Principal diagnosis: GI bleeding Interval history: Patient seen and examined. Medical records and medication list reviewed. H/h further dropped, off heparin drip now Discussed plan of care at bedside with patient. HR converted atrial fib/flutter placed on pressor last night now weaned off transfer out from ICU Objective - Constitutional Vitals: Vital Signs - 12hr 12/14/18 12/14/18 12/14/18 05:00 05:12 06:00 Temperature Pulse Rate 146 H 141 H 141 H Pulse Rate [ From Monitor] Respiratory 26 H 35 H Rate Blood Pressure 82/58 84/63 O2 Sat by Pulse 100 100 Oximetry 12/14/18 12/14/18 12/14/18 07:00 07:48 08:00 Temperature 98.3 F Pulse Rate 139 H 141 H Pulse Rate [ 140 H From Monitor] Respiratory 35 H 36 H Rate Blood Pressure 90/61 104/51 O2 Sat by Pulse 100 100 Oximetry 12/14/18 12/14/18 12/14/18 08:02 09:00 10:00 Temperature Pulse Rate 143 H 139 H Pulse Rate [ From Monitor] Respiratory 18 36 H Rate Blood Pressure 84/41 106/58 O2 Sat by Pulse 100 99 Oximetry 12/14/18 12/14/18 12/14/18 11:00 12:00 12:19 Temperature 97.6 F 98.0 F Pulse Rate 142 H 140 H 139 H Pulse Rate [ 140 H From Monitor] Respiratory 21 30 H 28 H Rate Blood Pressure 107/78 99/66 105/48 O2 Sat by Pulse 100 100 25 L Oximetry 12/14/18 12/14/18 12/14/18 12:34 13:00 13:04 Temperature 98.5 F 98.3 F Pulse Rate 139 H 141 H 139 H Pulse Rate [ From Monitor] Respiratory 35 H 30 H 36 H Rate Blood Pressure 102/61 98/54 118/57 O2 Sat by Pulse 100 100 100 Oximetry 12/14/18 12/14/18 12/14/18 13:30 13:34 14:00 Temperature 98.0 F Pulse Rate 140 H 140 H 141 H Pulse Rate [ From Monitor] Respiratory 30 H 39 H Rate Blood Pressure 102/61 127/72 118/57 O2 Sat by Pulse 100 100 Oximetry 12/14/18 12/14/18 15:00 16:00 Temperature Pulse Rate 139 H 139 H Pulse Rate [ 139 H From Monitor] Respiratory 32 H 24 Rate Blood Pressure 111/71 118/64 O2 Sat by Pulse 100 100 Oximetry - Labs CBC & Chem 7: 12/15/18 08:10 12/15/18 08:10 Labs: Abnormal lab results 08/12/13/18 12/13/18 Range/Units 14:33 16:58 17:55 WBC (4.5-11.0) K/mm3 RBC (3.65-5.03) M/mm3 Hgb 8.1 L (10.1-14.3) gm/dl Hct 24.6 L (30.3-42.9) % RDW (13.2-15.2) % Seg Neuts % (Manual) (40.0-70.0) % Lymphocytes % (Manual) (13.4-35.0) % Seg Neutrophils # Man (1.8-7.7) K/mm3 Monocytes # (Manual) (0.0-0.8) K/mm3 BUN (7-17) mg/dL POC Glucose 220 H (70-105) THERESE Screen Positive H (Negative) THERESE Titer 1:320 H (Negative) Crossmatch 12/13/18 12/13/18 12/13/18 Range/Units 21:32 22:15 Unknown WBC (4.5-11.0) K/mm3 RBC (3.65-5.03) M/mm3 Hgb 7.4 L (10.1-14.3) gm/dl Hct 22.3 L (30.3-42.9) % RDW (13.2-15.2) % Seg Neuts % (Manual) (40.0-70.0) % Lymphocytes % (Manual) (13.4-35.0) % Seg Neutrophils # Man (1.8-7.7) K/mm3 Monocytes # (Manual) (0.0-0.8) K/mm3 BUN (7-17) mg/dL POC Glucose 151 H (70-105) THERESE Screen (Negative) THERESE Titer (Negative) Crossmatch See Detail 12/14/18 12/14/18 12/14/18 Range/Units 04:05 04:05 11:25 WBC 25.4 H (4.5-11.0) K/mm3 RBC 2.55 L (3.65-5.03) M/mm3 Hgb 7.3 L (10.1-14.3) gm/dl Hct 21.6 L (30.3-42.9) % RDW 18.5 H (13.2-15.2) % Seg Neuts % (Manual) 88.0 H (40.0-70.0) % Lymphocytes % (Manual) 7.0 L (13.4-35.0) % Seg Neutrophils # Man 22.4 H (1.8-7.7) K/mm3 Monocytes # (Manual) 1.3 H (0.0-0.8) K/mm3 BUN 21 H (7-17) mg/dL POC Glucose 249 H (70-105) THERESE Screen (Negative) THERESE Titer (Negative) Crossmatch 12/14/18 12/14/18 Range/Units 15:41 16:13 WBC (4.5-11.0) K/mm3 RBC (3.65-5.03) M/mm3 Hgb 8.9 L (10.1-14.3) gm/dl Hct 27.1 L (30.3-42.9) % RDW (13.2-15.2) % Seg Neuts % (Manual) (40.0-70.0) % Lymphocytes % (Manual) (13.4-35.0) % Seg Neutrophils # Man (1.8-7.7) K/mm3 Monocytes # (Manual) (0.0-0.8) K/mm3 BUN (7-17) mg/dL POC Glucose 117 H (70-105) THERESE Screen (Negative) THERESE Titer (Negative) Crossmatch
[2018-12-14] MEDS: SINGULAIR PO SCH (17:45)
[2018-12-14] MEDS: ELAVIL PO SCH (22:00)
[2018-12-14] MEDS: TYLENOL PO PRN (22:01)
--- NOTE | 2018-12-15 06:53 | Hem/Onc Progress Note ---
Assessment and Plan Peripheral extremities both lower and left upper extremity thromboembolic disease. This may be related to her generalized disease etiology versus rheumatology issue versus embolic phenomena. There was a question if this is HIT. However, the platelet count is not low. HIT test Negative 1. h/o Elevated bilirubin. 2. h/o Electrolyte imbalance. 3. Arterial thrombus, on anticoagulation. 4. h/o Diabetic ketoacidosis. 5. h/o Hypertension. 6. h/o Ischemic cardiomyopathy with low ejection fraction. 7. h/o Respiratory failure. 8. h/o Sepsis, elevated troponin /CPK. I will follow the patient during inpatient stay and then in the clinic setting. The cause of thromboembolism is not clear. echo done RODNEY Done HIT negative h/o high hct likely sec to sleep apnea - later anemia due to bleed dark toes - with arterial thrombus HIT neg - hence IV heparin was used there is a question if her signs and symptoms are sec to rheumatology issues 12/15 due to h/o GI bleed - off heparin - low EF as per vascular note - podiatry or ortho will do sx - once demarcation clear - Patient Problems (1) Ischemia Current Visit: Yes Status: Acute Subjective Date of service: 12/15/18 Principal diagnosis: ischemic foot Interval history: denies any GI bleeding Objective - Exam Narrative Exam: Pain - hand and leg General appearance pain Performance status limited self care Eyes - no icterus ENT - no bleeding LNs cervical not palpable Neck - no LN Respiratory Normal Breath sounds - CTA CVS S1 S2 + Extremities cold toes and dark left hand finger General GI Soft Rectal deferred female - deferred Skin warm Musculoskeletal moving extremitites - dark foot and left hand finger Neurologically awake - Constitutional Vitals: Last Vital Signs Temp 98.9 F 12/15/18 04:00 Pulse 145 H 12/14/18 20:00 Resp 22 12/14/18 22:01 BP 106/69 12/14/18 20:00 Pulse Ox 100 12/14/18 21:40 - Labs Lab Results: Laboratory Results - last 24 hr 12/03/18 12/13/18 12/14/18 14:33 Unknown 08:10 Hgb Hct POC Glucose 90 THERESE Screen Positive H THERESE Titer 1:320 H THERESE Pattern Homogeneous Blood Type B POSITIVE Antibody Screen Negative Crossmatch See Detail 12/14/18 12/14/18 12/14/18 11:25 15:41 16:13 Hgb 8.9 L Hct 27.1 L POC Glucose 249 H 117 H THERESE Screen THERESE Titer THERESE Pattern Blood Type Antibody Screen Crossmatch 12/14/18 22:12 Hgb Hct POC Glucose 140 H THERESE Screen THERESE Titer THERESE Pattern Blood Type Antibody Screen Crossmatch Medications & Allergies - Medications Allergies/Adverse Reactions: Allergies lisinopril Adverse Reaction (Severe, Verified 12/17/13 19:00) SORE THROAT;PERSISTENT COUGH Home Medications: Home Medications Medication Instructions Recorded Confirmed Last Taken Type Aspirin [Aspirin BABY CHEW TAB] 81 mg PO QDAY 11/28/18 11/29/18 11/26/18 History Fluticasone [Flonase] 1 spray NS BID 11/28/18 11/28/18 Unknown History Furosemide [Lasix TAB] 40 mg PO BID 11/28/18 11/28/18 Unknown History Ibuprofen [Motrin] 600 mg PO Q6H PRN 11/28/18 11/28/18 Unknown History Montelukast [Singulair] 10 mg PO QPM 11/28/18 11/28/18 Unknown History Mycophenolate [Cellcept] 500 mg PO BID 11/28/18 11/28/18 Unknown History Mycophenolate [Cellcept] 500 mg PO BID PRN MDD 2 TABS 11/28/18 11/28/18 Unknown History Pantoprazole [Protonix] 40 mg PO QDAY 11/28/18 11/28/18 Unknown History Sacubitril/Valsartan [Entresto 1 each PO BID 11/28/18 11/28/18 Unknown History 49-51 mg] predniSONE [Deltasone] 50 mg PO QDAY 11/28/18 11/28/18 Unknown History raNITIdine HCl [Zantac] 150 mg PO BID 11/28/18 11/28/18 Unknown History Amitriptyline [Elavil] 25 mg PO HS 11/29/18 11/29/18 11/26/18 History Aspirin [Adult Aspirin] 81 mg PO ONCE 11/29/18 11/29/18 11/26/18 History Entresto 49-51 mg 49 mg PO BID 11/29/18 11/29/18 11/26/18 History HYDROcodone/APAP 5-325 5 mg PO Q6HR PRN 11/29/18 11/29/18 Unknown History Active Medications: Generic Name Dose Route Start Last Admin Trade Name Freq PRN Reason Stop Dose Admin Acetaminophen 650 mg 11/28/18 03:02 12/14/18 22:01 Tylenol PO 650 mg Q4H PRN Administration Pain MILD(1-3)/Fever >100.5/TURPIN Alprazolam 0.25 mg 11/30/18 01:09 12/14/18 04:57 Xanax PO 0.25 mg Q8H PRN Administration Anxiety Amiodarone HCl 200 mg 12/02/18 12:00 12/14/18 22:00 Cordarone PO 200 mg BID VIOLA Administration Amitriptyline HCl 25 mg 11/29/18 22:00 12/14/18 22:00 Elavil PO 25 mg HS VIOLA Administration Dextrose 0 ml 11/28/18 02:19 D50w (25gm) Syringe IV PRN PRN Hypoglycemia Digoxin 0.25 mg 12/15/18 17:00 Lanoxin IV QDAY@1700 VIOLA Fluticasone Propionate 50 mcg 11/29/18 10:00 12/14/18 22:00 Flonase NS 1 mcg BID VIOLA Administration Hydrophilic Ointment 1 applic 11/30/18 11:55 Vaseline Lip Therapy TP DIRECT PRN DRY LIPS Phenylephrine HCl 100 mg/ 100 mls @ 3 mls/hr 12/14/18 06:00 12/14/18 10:00 Sodium Chloride IV 0 mcg/min TITR VIOLA 0 mls/hr Titration Protocol 50 MCG/MIN Insulin Human Isoph/Insulin Regular 24 unit 12/10/18 09:00 12/14/18 17:00 Humulin 70/30 SUB-Q Not Given BIDDIAB [facility] Insulin Human Lispro 0 unit 11/30/18 09:00 12/14/18 16:30 Humalog SUB-Q Not Given ACHS [facility] Protocol Montelukast Sodium 10 mg 11/29/18 18:00 12/14/18 17:45 Singulair PO 10 mg QPM VIOLA Administration Morphine Sulfate 2 mg 11/28/18 03:02 12/07/18 23:08 Morphine IV 2 mg Q4H PRN Administration Pain, Moderate (4-6) Ondansetron HCl 4 mg 11/28/18 03:02 Zofran IV Q8H PRN Nausea And Vomiting Pantoprazole Sodium 40 mg 12/13/18 10:00 12/14/18 10:00 Protonix IV 40 mg BID VIOLA Administration Prednisone 50 mg 11/29/18 10:00 12/14/18 09:39 Deltasone PO Not Given QDAY VIOLA Sodium Chloride 10 ml 11/28/18 10:00 12/14/18 22:01 Sodium Chloride Flush Syringe 10 Ml IV 10 ml BID VIOLA Administration Sodium Chloride 10 ml 11/28/18 03:02 Sodium Chloride Flush Syringe 10 Ml IV PRN PRN LINE FLUSH
[2018-12-15] MEDS: HumaLOG SUB-Q SCH ×5 (07:30→22:18)
[2018-12-15 08:39] LABS: Hematocrit 27.9 % (30.3-42.9); Hemoglobin 9.2 gm/dl (10.1-14.3); Mean Corpuscular HGB Conc 33 % (30-34); Mean Corpuscular Volume 86 fl (79-97); Platelet Count 341 K/mm3 (140-440); Red Blood Count 3.26 M/mm3 (3.65-5.03)
[2018-12-15] MEDS: MORPHINE IV PRN ×3 (08:44→23:06)
[2018-12-15 08:52] LABS: BUN/Creatinine Ratio 16; Blood Urea Nitrogen 14 mg/dL (7-17); Calcium 8.6 mg/dL (8.4-10.2); Hemolysis Index 0
--- NOTE | 2018-12-15 10:10 | Progress Note ---
Assessment and Plan Hyperosmolar hyperglycemic state, newly diagnosed DM Acute metabolic encephalopathy Head CT scan negative Systemic sclerosis Occluded left anterior tibial and dorsalis pedis artery by arterial doppler Acute GI bleed IV heparin discontinued Sleep apnea on CPAP as an outpatient Interstitial Lung disease Hypertension Chronic systolic heart failure, EF of 20-25% Paroxysmal Afib/flutter on oral amiodarone and digoxin Presence of AICD on 11/28/18 patient had multiple shocks from her ICD for runs of VT/VF Elevated troponin Probably secondary to demand ischemia due to acute process Echocardiogram shows no evidence of thrombus or vegetation. Decreased left ventricular systolic function 20-25%. RODNEY reports a small mobile echogenic density noted on the PM wire on the RA side - this is likely a small thrombus given negative blood cultures. This is on the right side of the heart and therefore has nothing to do with her upper extremity process. Typically we recommend systemic anticoagulation for 3 months then re- imaging to document resolution of the small clot. We will start intravenous amiodarone load and maintenance. We will plan for a RODNEY/CV on Thursday if patient remains in rapid aflutter. Subjective Date of service: 12/15/18 Principal diagnosis: ischemic foot Interval history: Rapid atrial flutter on telemetry. Objective Vital Signs Temp Pulse Pulse Resp BP Pulse Ox 12/15/18 09:00 152 H 15 109/76 100 12/15/18 08:10 100 12/15/18 08:00 149 H 153 H 33 H 124/69 99 12/15/18 07:00 149 H 34 H 96/61 12/15/18 06:00 150 H 38 H 86/71 99 12/15/18 05:00 146 H 43 H 111/65 99 12/15/18 04:00 98.9 F 146 H 150 H 31 H 95/63 99 12/15/18 03:00 144 H 27 H 98/57 98 12/15/18 02:00 147 H 28 H 77/55 12/15/18 01:00 144 H 31 H 112/66 12/15/18 00:00 143 H 140 H 38 H 109/74 98 12/14/18 23:57 99.0 F 12/14/18 23:00 122 H 40 H 78/54 100 12/14/18 22:01 22 12/14/18 22:00 143 H 34 H 105/69 99 12/14/18 21:40 100 12/14/18 21:00 143 H 29 H 119/62 100 12/14/18 20:14 142 H 21 106/69 100 12/14/18 20:00 99.3 F 145 H 145 H 22 106/69 100 12/14/18 19:00 140 H 32 H 116/59 98 12/14/18 18:00 138 H 24 125/67 12/14/18 17:44 139 H 116/62 12/14/18 17:00 144 H 28 H 129/66 100 12/14/18 16:00 139 H 139 H 24 118/64 100 12/14/18 15:00 139 H 32 H 111/71 12/14/18 14:00 141 H 39 H 118/57 12/14/18 13:34 98.0 F 140 H 30 H 127/72 12/14/18 13:30 140 H 102/61 12/14/18 13:04 98.3 F 139 H 36 H 118/57 12/14/18 13:00 141 H 30 H 98/54 12/14/18 12:34 98.5 F 139 H 35 H 102/61 12/14/18 12:19 98.0 F 139 H 28 H 105/48 25 L 12/14/18 12:00 97.6 F 140 H 140 H 30 H 99/66 12/14/18 11:00 142 H 21 107/78 100 - Physical Examination General: No Apparent Distress HEENT: Positive: PERRL Neck: Positive: trachea midline Cardiac: Positive: irregularly irregular Lungs: Positive: Decreased Breath Sounds Neuro: Positive: Grossly Intact Abdomen: Positive: Soft Extremities: Absent: edema - Labs and Meds CBC 12/14/18 12/15/18 Range/Units 15:41 08:10 WBC 22.3 H (4.5-11.0) K/mm3 RBC 3.26 L (3.65-5.03) M/mm3 Hgb 8.9 L 9.2 L (10.1-14.3) gm/dl Hct 27.1 L 27.9 L (30.3-42.9) % Plt Count 341 (140-440) K/mm3 Comprehensive Metabolic Panel 12/15/18 Range/Units 08:10 Sodium 136 L (137-145) mmol/L Potassium 3.7 (3.6-5.0) mmol/L Chloride 95.0 L (98-107) mmol/L Carbon Dioxide 30 (22-30) mmol/L BUN 14 (7-17) mg/dL Creatinine 0.9 (0.7-1.2) mg/dL Glucose 147 H (65-100) mg/dL Calcium 8.6 (8.4-10.2) mg/dL
[2018-12-15 10:19] LABS: Basophils % (Manual) 0 % (0.0-1.8); Eosinophils % (Manual) 0 % (0.0-4.3); Total Cells Counted 100
[2018-12-15 10:20] LABS: Platelet Estimate Consistent w Auto; Stomatocytes Few; Target Cells 1+
[2018-12-15] MEDS ORDERED: CORDARONE 150 MG in D5W 97 ML IV ONE (10:30)
[2018-12-15] MEDS: DELTASONE PO SCH (11:40)
[2018-12-15] MEDS: PROTONIX PO SCH ×2 (11:41→22:17)
[2018-12-15] MEDS: CORDARONE 900 MG in D5W 482 ML IV SCH (11:49)
[2018-12-15] MEDS: FLONASE NS SCH ×2 (11:49→22:17)
[2018-12-15] MEDS: CORDARONE PO SCH (11:50)
[2018-12-15] MEDS: SODIUM CHLORIDE FLUSH SYRINGE 10 ML IV SCH ×2 (12:15→22:00)
--- NOTE | 2018-12-15 15:50 | Gastroenterology Progress Note ---
Assessment and Plan GI: stable w/o further signs bleeding - continue conservative management w/o plans to scope unless necessary - no changes, will follow Subjective Date of service: 12/15/18 Principal diagnosis: ischemic foot Interval history: - no signs bleeding overnight Objective - Constitutional Vitals: Temp Pulse Resp BP Pulse Ox 98.4 F 142 H 15 100/70 100 12/15/18 12:00 12/15/18 15:00 12/15/18 15:00 12/15/18 15:00 12/15/18 15:00 General appearance: no acute distress - EENT Eyes: PERRL - Respiratory Respiratory: bilateral: CTA - Cardiovascular Rhythm: regular Heart Sounds: Present: S1 & S2 - Gastrointestinal General gastrointestinal: Present: soft, non-tender, non-distended - Labs CBC & Chem 7: 12/15/18 08:10 12/15/18 08:10 Labs: Laboratory Results - last 24 hr 12/14/18 12/14/18 12/14/18 15:41 16:13 22:12 WBC RBC Hgb 8.9 L Hct 27.1 L MCV MCH MCHC RDW Plt Count Add Manual Diff Total Counted Seg Neuts % (Manual) Band Neutrophils % Lymphocytes % (Manual) Reactive Lymphs % (Man) Monocytes % (Manual) Eosinophils % (Manual) Basophils % (Manual) Metamyelocytes % Myelocytes % Promyelocytes % Blast Cells % Nucleated RBC % Seg Neutrophils # Man Band Neutrophils # Lymphocytes # (Manual) Abs React Lymphs (Man) Monocytes # (Manual) Eosinophils # (Manual) Basophils # (Manual) Metamyelocytes # Myelocytes # Promyelocytes # Blast Cells # WBC Morphology Hypersegmented Neuts Hyposegmented Neuts Hypogranular Neuts Smudge Cells Toxic Granulation Toxic Vacuolation Dohle Bodies Pelger-Huet Anomaly Rosalva Rods Platelet Estimate Clumped Platelets Plt Clumps, EDTA Large Platelets Giant Platelets Platelet Satelliting Plt Morphology Comment RBC Morphology Dimorphic RBCs Polychromasia Hypochromasia Poikilocytosis Anisocytosis Microcytosis Macrocytosis Spherocytes Pappenheimer Bodies Sickle Cells Target Cells Tear Drop Cells Ovalocytes Stomatocytes Helmet Cells Garza-Tullos Bodies [place] Rings [place] Cells Bite Cells Crenated Cell Elliptocytes Acanthocytes (Spur) Rouleaux Hemoglobin C Crystals Schistocytes Malaria parasites Dominic Bodies Hem Pathologist Commnt Sodium Potassium Chloride Carbon Dioxide Anion Gap BUN Creatinine Estimated GFR BUN/Creatinine Ratio Glucose POC Glucose 117 H 140 H Calcium 12/15/18 12/15/18 12/15/18 08:10 08:10 08:32 WBC 22.3 H RBC 3.26 L Hgb 9.2 L Hct 27.9 L MCV 86 MCH 28 MCHC 33 RDW 17.0 H Plt Count 341 Add Manual Diff Complete Total Counted 100 Seg Neuts % (Manual) 88.0 H Band Neutrophils % 0 Lymphocytes % (Manual) 10.0 L Reactive Lymphs % (Man) 0 Monocytes % (Manual) 2.0 Eosinophils % (Manual) 0 Basophils % (Manual) 0 Metamyelocytes % 0 Myelocytes % 0 Promyelocytes % 0 Blast Cells % 0 Nucleated RBC % Not Reportable Seg Neutrophils # Man 19.6 H Band Neutrophils # 0.0 Lymphocytes # (Manual) 2.2 Abs React Lymphs (Man) 0.0 Monocytes # (Manual) 0.4 Eosinophils # (Manual) 0.0 Basophils # (Manual) 0.0 Metamyelocytes # 0.0 Myelocytes # 0.0 Promyelocytes # 0.0 Blast Cells # 0.0 WBC Morphology Not Reportable Hypersegmented Neuts Not Reportable Hyposegmented Neuts Not Reportable Hypogranular Neuts Not Reportable Smudge Cells Not Reportable Toxic Granulation Not Reportable Toxic Vacuolation Not Reportable Dohle Bodies Not Reportable Pelger-Huet Anomaly Not Reportable Rosalva Rods Not Reportable Platelet Estimate Consistent w auto Clumped Platelets Not Reportable Plt Clumps, EDTA Not Reportable Large Platelets Not Reportable Giant Platelets Not Reportable Platelet Satelliting Not Reportable Plt Morphology Comment Not Reportable RBC Morphology Not Reportable Dimorphic RBCs Not Reportable Polychromasia Not Reportable Hypochromasia Not Reportable Poikilocytosis Not Reportable Anisocytosis Not Reportable Microcytosis Not Reportable Macrocytosis Not Reportable Spherocytes Not Reportable Pappenheimer Bodies Not Reportable Sickle Cells Not Reportable Target Cells 1+ Tear Drop Cells Not Reportable Ovalocytes Not Reportable Stomatocytes Few Helmet Cells Not Reportable Garza-Tullos Bodies Not Reportable [place] Rings Not Reportable Claudio Cells Not Reportable Bite Cells Not Reportable Crenated Cell Not Reportable Elliptocytes Not Reportable Acanthocytes (Spur) Not Reportable Rouleaux Not Reportable Hemoglobin C Crystals Not Reportable Schistocytes Not Reportable Malaria parasites Not Reportable Dominic Bodies Not Reportable Hem Pathologist Commnt No Sodium 136 L Potassium 3.7 Chloride 95.0 L Carbon Dioxide 30 Anion Gap 15 BUN 14 Creatinine 0.9 Estimated GFR > 60 BUN/Creatinine Ratio 16 Glucose 147 H POC Glucose 144 H Calcium 8.6 12/15/18 12:06 WBC RBC Hgb Hct MCV MCH MCHC RDW Plt Count Add Manual Diff Total Counted Seg Neuts % (Manual) Band Neutrophils % Lymphocytes % (Manual) Reactive Lymphs % (Man) Monocytes % (Manual) Eosinophils % (Manual) Basophils % (Manual) Metamyelocytes % Myelocytes % Promyelocytes % Blast Cells % Nucleated RBC % Seg Neutrophils # Man Band Neutrophils # Lymphocytes # (Manual) Abs React Lymphs (Man) Monocytes # (Manual) Eosinophils # (Manual) Basophils # (Manual) Metamyelocytes # Myelocytes # Promyelocytes # Blast Cells # WBC Morphology Hypersegmented Neuts Hyposegmented Neuts Hypogranular Neuts Smudge Cells Toxic Granulation Toxic Vacuolation Dohle Bodies Pelger-Huet Anomaly Rosalav Rods Platelet Estimate Clumped Platelets Plt Clumps, EDTA Large Platelets Giant Platelets Platelet Satelliting Plt Morphology Comment RBC Morphology Dimorphic RBCs Polychromasia Hypochromasia Poikilocytosis Anisocytosis Microcytosis Macrocytosis Spherocytes Pappenheimer Bodies Sickle Cells Target Cells Tear Drop Cells Ovalocytes Stomatocytes Helmet Cells Garza-Tullos Bodies [place] Rings Claudio Cells Bite Cells Crenated Cell Elliptocytes Acanthocytes (Spur) Rouleaux Hemoglobin C Crystals Schistocytes Malaria parasites Dominic Bodies Hem Pathologist Commnt Sodium Potassium Chloride Carbon Dioxide Anion Gap BUN Creatinine Estimated GFR BUN/Creatinine Ratio Glucose POC Glucose 199 H Calcium
[2018-12-15] MEDS: SINGULAIR PO SCH (17:00)
[2018-12-15] MEDS: LANOXIN IV SCH (17:00)
--- NOTE | 2018-12-15 17:51 | Progress Note ---
Assessment and Plan /Paroxysmal Afib/flutter - Due to low blood pressure, she cannot tolerate typical AV node blockers. - Per cardiology started on digoxin load and maintenance dose, and placed on iv amiodarone drip today. plan for a RODNEY/CV on Thursday if patient remains in rapid aflutter. / Acute rectal bleeding - s/p one unit FFP, hold heparin - has had GI bleeding/epistaxis/vaginal bleeding after starting heparin prior - will f/u GI recommendation, cont to monitor h/h - dropped hb below 8 - considering extensive cardiac history transfused one unit PRBC /Ischemic lower > upper extremity with dry gangrene. Vasc Surgery following Dr. Hernandez, plan for amputation when clear line of demarcation achieved - patient can f/u as outpt as it may take few weeks HIT panel -negative, F/U labs for vasculitis--CRP, sedimentation rate, anti-Ro, anti-la, anti-Maritza 1, AMA, ANCA, rheumatoid factor. Anti-ccp /Hyperosmolar hyperglycemic state (HHS) in a newly diagnosed Diabetes-new onset Patient was admitted to the ICU on insulin drip, now off Insulin drip Continue serial BMP level monitoring, Cont. Novolin 70/30 /Diabetes mellitus type 2-new onset, cont SSI /SIRS with leukemoid reaction Present on admission with leukocytosis, tachycardia, tachypnea. Likely from limb ischemia. No acute signs of infection at the present time. Continue off antibiotics. CT abd/pelvis showed generalized bronchiectasis Blood cultures no growth /Vtach s/p shocked 8 tiemes by AICD, as per interrogation, notes in paper chart Cont. Amiodarone cardiology following, off BB for hypotemsion /Metabolic encephalopathy, resolved Head CT scan negative We'll monitor clinically /-Acute hypoxic respiratory failure. O2 and BiPAP as clinically indicated. /-CATRACHO Continue CPAP during sleep and when necessary. /-Interstitial lung disease. Continue per pulmonary. nebs as needed /Systemic sclerosis, celcept on hold /-Elevated troponin; nonspecific supportive care /-EDGARDO; Probably vasomotor nephropathy due to dehydration Resolved /Abnormal LFT Probably due to acute process -CT abd/pelvis negative for liver pathology -We'll monitor levels /-Hypotension - s/p levophed /Cardiomyopathy with EF of 20-25% -Status post AICD placement -No acute exacerbation /GERD -On famotidine /Severe malnutrition/hypoalbuminemia: Nutrition consult /DVT prophylaxis: off hold heparin now for rectal bleeding Disposition; [facility] when medically stable and outpt f/u for possible amputation The high probability of a clinically significant, sudden or life threatening deterioration of the [multiple] system(s) required my full and direct attention, intervention and personal management. The aggregate critical care time was [35] minutes. This time is in addition to time spent performing reported procedures but includes the following: [x] Data Review and interpretation [x] Patient assessment and monitoring of vital signs [x] Documentation [x] Medication orders and management Brief History: 38-year-old female patient with history of scleroderma severe cardiomyopathy history of V. fib V. tach runs status post ICD and recently started on CellCept who was brought to the ED via EMS on account of generalized weakness,confusion, multiple episodes of nausea with vomiting generalized weakness and poor oral intake. Also noted some bluish discoloration of her feet which prompted her significant other to call 911. She noted to have BG of 1088, placed on insulin drip, admitted to ICU. Vascular, hematology oncologist evaluated the patient, started on heparin drip for bilateral lower extremity ischemia with the development of cyanotic bilateral feet and cyanotic left upper extremity left middle digit. Had brief episode of GI bleeding, GI evaluated the patient, since patient did not have new episodes of GI bleeding, advised to continue heparin drip and closely monitor H&H. Orthopedic has evaluated the patient and is planning surgery once the demarcation of ischemia is clear. Now she had rectal bleeding 12/12 and off heparin drip, vascular/ortho now to plan for amputation as outpt. Hospitalist Physical exam: GENERAL: lying on bed appeared to be in no discomfort. HEENT: Normocephalic. Atraumatic. No conjunctival congestion or icterus. Patient has moist mucous membranes. NECK: Supple. Trachea midline. CHEST/LUNGS: Clear to auscultated bilaterally, breathing nonlabored. No wheezes crackles or rhonchi. HEART/CARDIOVASCULAR: Regular in rate and rhythm. S1 and S2 positive. ABDOMEN: Abdomen is soft, nontender. Patient has normal bowel sounds. SKIN: bruises over arms. Warm and dry. NEURO: No focal motor deficit. Follows command. MUSCULOSKELETAL: No joint effusion or tenderness. EXTRIMITY: + cyanosis on b/l LE, The bilateral feet are warm, but there is ischemic, partially demarcated tissue at the midfoot near the hindfoot and the forefoot on the right side and left forefoot on the left side. PSYCH: Cooperative. Subjective Date of service: 12/15/18 Principal diagnosis: GI bleeding Interval history: Patient seen and examined. Medical records and medication list reviewed. H/h stable, off heparin drip now Discussed plan of care at bedside with patient. HR remained atrial fib/flutter placed on amioderone drip today monitor at ICU Objective - Constitutional Vitals: Vital Signs - 12hr 12/15/18 12/15/18 12/15/18 06:00 07:00 08:00 Temperature 98.7 F Pulse Rate 150 H 149 H 149 H Pulse Rate [ 153 H From Monitor] Respiratory 38 H 34 H 33 H Rate Blood Pressure 86/71 96/61 124/69 O2 Sat by Pulse 99 99 Oximetry 12/15/18 12/15/18 12/15/18 08:10 09:00 10:00 Temperature Pulse Rate 152 H 151 H Pulse Rate [ From Monitor] Respiratory 15 32 H Rate Blood Pressure 109/76 105/75 O2 Sat by Pulse 100 100 Oximetry 12/15/18 12/15/18 12/15/18 11:00 12:00 13:00 Temperature 98.4 F Pulse Rate 151 H 146 H 147 H Pulse Rate [ 149 H From Monitor] Respiratory 37 H 26 H 27 H Rate Blood Pressure 105/70 96/75 112/66 O2 Sat by Pulse 98 100 100 Oximetry 12/15/18 12/15/18 12/15/18 14:00 15:00 16:00 Temperature Pulse Rate 142 H 142 H 142 H Pulse Rate [ 150 H From Monitor] Respiratory 35 H 15 17 Rate Blood Pressure 121/71 100/70 91/76 O2 Sat by Pulse 100 100 100 Oximetry 12/15/18 17:00 Temperature Pulse Rate 140 H Pulse Rate [ From Monitor] Respiratory 20 Rate Blood Pressure 132/81 O2 Sat by Pulse 99 Oximetry - Labs CBC & Chem 7: 12/15/18 08:10 12/16/18 00:15 Labs: Abnormal lab results 12/14/18 12/15/18 12/15/18 Range/Units 22:12 08:10 08:10 WBC 22.3 H (4.5-11.0) K/mm3 RBC 3.26 L (3.65-5.03) M/mm3 Hgb 9.2 L (10.1-14.3) gm/dl Hct 27.9 L (30.3-42.9) % RDW 17.0 H (13.2-15.2) % Seg Neuts % (Manual) 88.0 H (40.0-70.0) % Lymphocytes % (Manual) 10.0 L (13.4-35.0) % Seg Neutrophils # Man 19.6 H (1.8-7.7) K/mm3 Sodium 136 L (137-145) mmol/L Chloride 95.0 L (98-107) mmol/L Glucose 147 H (65-100) mg/dL POC Glucose 140 H (70-105) 12/15/18 12/15/18 12/15/18 Range/Units 08:32 12:06 16:38 WBC (4.5-11.0) K/mm3 RBC (3.65-5.03) M/mm3 Hgb (10.1-14.3) gm/dl Hct (30.3-42.9) % RDW (13.2-15.2) % Seg Neuts % (Manual) (40.0-70.0) % Lymphocytes % (Manual) (13.4-35.0) % Seg Neutrophils # Man (1.8-7.7) K/mm3 Sodium (137-145) mmol/L Chloride (98-107) mmol/L Glucose (65-100) mg/dL POC Glucose 144 H 199 H 158 H (70-105)
[2018-12-15] MEDS: ELAVIL PO SCH (22:17)
--- NOTE | 2018-12-16 07:08 | Hem/Onc Progress Note ---
Assessment and Plan Peripheral extremities both lower and left upper extremity thromboembolic disease. This may be related to her generalized disease etiology versus rheumatology issue versus embolic phenomena. There was a question if this is HIT. However, the platelet count is not low. HIT test Negative 1. h/o Elevated bilirubin. 2. h/o Electrolyte imbalance. 3. Arterial thrombus, on anticoagulation. 4. h/o Diabetic ketoacidosis. 5. h/o Hypertension. 6. h/o Ischemic cardiomyopathy with low ejection fraction. 7. h/o Respiratory failure. 8. h/o Sepsis, elevated troponin /CPK. I will follow the patient during inpatient stay and then in the clinic setting. The cause of thromboembolism is not clear. echo done RODNEY Done HIT negative h/o high hct likely sec to sleep apnea - later anemia due to bleed dark toes - with arterial thrombus HIT neg - hence IV heparin was used there is a question if her signs and symptoms are sec to rheumatology issues 12/16 due to h/o GI bleed - off heparin - low EF as per vascular note - podiatry or ortho will do sx - once demarcation clear this is a challenging case - with bleeding and clotting issues - Low EF issues - Patient Problems (1) Ischemia Current Visit: Yes Status: Acute Subjective Date of service: 12/16/18 Principal diagnosis: ischemic leg Interval history: no bleeding - not on anticoagulation Objective - Exam Narrative Exam: Pain - hand and leg General appearance pain Performance status limited self care Eyes - no icterus ENT - no bleeding LNs cervical not palpable Neck - no LN Respiratory Normal Breath sounds - CTA CVS S1 S2 + Extremities cold toes and dark left hand finger General GI Soft Rectal deferred female - deferred Skin warm Musculoskeletal moving extremitites - dark foot and left hand finger Neurologically awake - Constitutional Vitals: Last Vital Signs Temp 97.8 F 12/16/18 04:11 Pulse 134 H 12/16/18 06:00 Resp 37 H 12/16/18 06:00 BP 117/72 12/16/18 06:00 Pulse Ox 98 12/16/18 06:00 - Labs Lab Results: Laboratory Results - last 24 hr 12/15/18 12/15/18 12/15/18 08:10 08:10 08:32 WBC 22.3 H RBC 3.26 L Hgb 9.2 L Hct 27.9 L MCV 86 MCH 28 MCHC 33 RDW 17.0 H Plt Count 341 Add Manual Diff Complete Total Counted 100 Seg Neuts % (Manual) 88.0 H Band Neutrophils % 0 Lymphocytes % (Manual) 10.0 L Reactive Lymphs % (Man) 0 Monocytes % (Manual) 2.0 Eosinophils % (Manual) 0 Basophils % (Manual) 0 Metamyelocytes % 0 Myelocytes % 0 Promyelocytes % 0 Blast Cells % 0 Nucleated RBC % Not Reportable Seg Neutrophils # Man 19.6 H Band Neutrophils # 0.0 Lymphocytes # (Manual) 2.2 Abs React Lymphs (Man) 0.0 Monocytes # (Manual) 0.4 Eosinophils # (Manual) 0.0 Basophils # (Manual) 0.0 Metamyelocytes # 0.0 Myelocytes # 0.0 Promyelocytes # 0.0 Blast Cells # 0.0 WBC Morphology Not Reportable Hypersegmented Neuts Not Reportable Hyposegmented Neuts Not Reportable Hypogranular Neuts Not Reportable Smudge Cells Not Reportable Toxic Granulation Not Reportable Toxic Vacuolation Not Reportable Dohle Bodies Not Reportable Pelger-Huet Anomaly Not Reportable Rosalva Rods Not Reportable Platelet Estimate Consistent w auto Clumped Platelets Not Reportable Plt Clumps, EDTA Not Reportable Large Platelets Not Reportable Giant Platelets Not Reportable Platelet Satelliting Not Reportable Plt Morphology Comment Not Reportable RBC Morphology Not Reportable Dimorphic RBCs Not Reportable Polychromasia Not Reportable Hypochromasia Not Reportable Poikilocytosis Not Reportable Anisocytosis Not Reportable Microcytosis Not Reportable Macrocytosis Not Reportable Spherocytes Not Reportable Pappenheimer Bodies Not Reportable Sickle Cells Not Reportable Target Cells 1+ Tear Drop Cells Not Reportable Ovalocytes Not Reportable Stomatocytes Few Helmet Cells Not Reportable Garza-[place] Addition Bodies Not Reportable Shepherd Rings Not Reportable Claudio Cells Not Reportable Bite Cells Not Reportable Crenated Cell Not Reportable Elliptocytes Not Reportable Acanthocytes (Spur) Not Reportable Rouleaux Not Reportable Hemoglobin C Crystals Not Reportable Schistocytes Not Reportable Malaria parasites Not Reportable Dominic Bodies Not Reportable Hem Pathologist Commnt No Sodium 136 L Potassium 3.7 Chloride 95.0 L Carbon Dioxide 30 Anion Gap 15 BUN 14 Creatinine 0.9 Estimated GFR > 60 BUN/Creatinine Ratio 16 Glucose 147 H POC Glucose 144 H Calcium 8.6 09/04/19 09/04/19 09/04/19 12:06 16:38 20:35 WBC RBC Hgb Hct MCV MCH MCHC RDW Plt Count Add Manual Diff Total Counted Seg Neuts % (Manual) Band Neutrophils % Lymphocytes % (Manual) Reactive Lymphs % (Man) Monocytes % (Manual) Eosinophils % (Manual) Basophils % (Manual) Metamyelocytes % Myelocytes % Promyelocytes % Blast Cells % Nucleated RBC % Seg Neutrophils # Man Band Neutrophils # Lymphocytes # (Manual) Abs React Lymphs (Man) Monocytes # (Manual) Eosinophils # (Manual) Basophils # (Manual) Metamyelocytes # Myelocytes # Promyelocytes # Blast Cells # WBC Morphology Hypersegmented Neuts Hyposegmented Neuts Hypogranular Neuts Smudge Cells Toxic Granulation Toxic Vacuolation Dohle Bodies Pelger-Huet Anomaly Rosalva Rods Platelet Estimate Clumped Platelets Plt Clumps, EDTA Large Platelets Giant Platelets Platelet Satelliting Plt Morphology Comment RBC Morphology Dimorphic RBCs Polychromasia Hypochromasia Poikilocytosis Anisocytosis Microcytosis Macrocytosis Spherocytes Pappenheimer Bodies Sickle Cells Target Cells Tear Drop Cells Ovalocytes Stomatocytes Helmet Cells Garza-[place] Addition Bodies Shepherd Rings Claudio Cells Bite Cells Crenated Cell Elliptocytes Acanthocytes (Spur) Rouleaux Hemoglobin C Crystals Schistocytes Malaria parasites Dominic Bodies Hem Pathologist Commnt Sodium Potassium Chloride Carbon Dioxide Anion Gap BUN Creatinine Estimated GFR BUN/Creatinine Ratio Glucose POC Glucose 199 H 158 H 198 H Calcium 12/16/18 12/16/18 00:15 00:42 WBC RBC Hgb Hct MCV MCH MCHC RDW Plt Count Add Manual Diff Total Counted Seg Neuts % (Manual) Band Neutrophils % Lymphocytes % (Manual) Reactive Lymphs % (Man) Monocytes % (Manual) Eosinophils % (Manual) Basophils % (Manual) Metamyelocytes % Myelocytes % Promyelocytes % Blast Cells % Nucleated RBC % Seg Neutrophils # Man Band Neutrophils # Lymphocytes # (Manual) Abs React Lymphs (Man) Monocytes # (Manual) Eosinophils # (Manual) Basophils # (Manual) Metamyelocytes # Myelocytes # Promyelocytes # Blast Cells # WBC Morphology Hypersegmented Neuts Hyposegmented Neuts Hypogranular Neuts Smudge Cells Toxic Granulation Toxic Vacuolation Dohle Bodies Pelger-Huet Anomaly Rosalva Rods Platelet Estimate Clumped Platelets Plt Clumps, EDTA Large Platelets Giant Platelets Platelet Satelliting Plt Morphology Comment RBC Morphology Dimorphic RBCs Polychromasia Hypochromasia Poikilocytosis Anisocytosis Microcytosis Macrocytosis Spherocytes Pappenheimer Bodies Sickle Cells Target Cells Tear Drop Cells Ovalocytes Stomatocytes Helmet Cells Garza-[place] Addition Bodies Shepherd Rings Claudio Cells Bite Cells Crenated Cell Elliptocytes Acanthocytes (Spur) Rouleaux Hemoglobin C Crystals Schistocytes Malaria parasites Dominic Bodies Hem Pathologist Commnt Sodium Potassium Chloride Carbon Dioxide Anion Gap BUN Creatinine Estimated GFR BUN/Creatinine Ratio Glucose 199 H POC Glucose 289 H Calcium Medications & Allergies - Medications Allergies/Adverse Reactions: Allergies lisinopril Adverse Reaction (Severe, Verified 12/17/13 19:00) SORE THROAT;PERSISTENT COUGH Home Medications: Home Medications Medication Instructions Recorded Confirmed Last Taken Type Aspirin [Aspirin BABY CHEW TAB] 81 mg PO QDAY 11/28/18 11/29/18 11/26/18 History Fluticasone [Flonase] 1 spray NS BID 11/28/18 11/28/18 Unknown History Furosemide [Lasix TAB] 40 mg PO BID 11/28/18 11/28/18 Unknown History Ibuprofen [Motrin] 600 mg PO Q6H PRN 11/28/18 11/28/18 Unknown History Montelukast [Singulair] 10 mg PO QPM 11/28/18 11/28/18 Unknown History Mycophenolate [Cellcept] 500 mg PO BID 11/28/18 11/28/18 Unknown History Mycophenolate [Cellcept] 500 mg PO BID PRN MDD 2 TABS 11/28/18 11/28/18 Unknown History Pantoprazole [Protonix] 40 mg PO QDAY 11/28/18 11/28/18 Unknown History Sacubitril/Valsartan [Entresto 1 each PO BID 11/28/18 11/28/18 Unknown History 49-51 mg] predniSONE [Deltasone] 50 mg PO QDAY 11/28/18 11/28/18 Unknown History raNITIdine HCl [Zantac] 150 mg PO BID 11/28/18 11/28/18 Unknown History Amitriptyline [Elavil] 25 mg PO HS 11/29/18 11/29/18 11/26/18 History Aspirin [Adult Aspirin] 81 mg PO ONCE 11/29/18 11/29/18 11/26/18 History Entresto 49-51 mg 49 mg PO BID 11/29/18 11/29/18 11/26/18 History HYDROcodone/APAP 5-325 5 mg PO Q6HR PRN 11/29/18 11/29/18 Unknown History Active Medications: Generic Name Dose Route Start Last Admin Trade Name Freq PRN Reason Stop Dose Admin Acetaminophen 650 mg 11/28/18 03:02 12/14/18 22:01 Tylenol PO 650 mg Q4H PRN Administration Pain MILD(1-3)/Fever >100.5/TURPIN Alprazolam 0.25 mg 11/30/18 01:09 12/14/18 04:57 Xanax PO 0.25 mg Q8H PRN Administration Anxiety Amitriptyline HCl 25 mg 11/29/18 22:00 12/15/18 22:17 Elavil PO 25 mg HS VIOLA Administration Dextrose 0 ml 11/28/18 02:19 12/16/18 00:17 D50w (25gm) Syringe IV 50 ml PRN PRN Administration Hypoglycemia Digoxin 0.25 mg 12/15/18 17:00 12/15/18 17:00 Lanoxin IV 0.25 mg QDAY@1700 VIOLA Administration Fluticasone Propionate 50 mcg 11/29/18 10:00 12/15/18 22:17 Flonase NS 50 mcg BID VIOLA Administration Hydrophilic Ointment 1 applic 11/30/18 11:55 Vaseline Lip Therapy TP DIRECT PRN DRY LIPS Amiodarone HCl 900 mg/ 500 mls @ 33.333 mls/hr 12/15/18 11:00 12/15/18 17:50 Dextrose IV 0.5 mg/min DIRECT VIOLA 16.667 mls/hr Infusion Protocol 1 MG/MIN Insulin Human Isoph/Insulin Regular 24 unit 12/10/18 09:00 12/15/18 17:02 Humulin 70/30 SUB-Q 24 unit BIDDIAB VIOLA Administration Insulin Human Lispro 0 unit 11/30/18 09:00 12/15/18 22:18 Humalog SUB-Q 2 unit ACHS VIOLA Administration Protocol Montelukast Sodium 10 mg 11/29/18 18:00 12/15/18 17:00 Singulair PO 10 mg QPM VIOLA Administration Morphine Sulfate 2 mg 11/28/18 03:02 12/15/18 23:06 Morphine IV 2 mg Q4H PRN Administration Pain, Moderate (4-6) Ondansetron HCl 4 mg 11/28/18 03:02 Zofran IV Q8H PRN Nausea And Vomiting Pantoprazole Sodium 40 mg 12/15/18 10:00 12/15/18 22:17 Protonix PO 40 mg BID VIOLA Administration Prednisone 50 mg 11/29/18 10:00 12/15/18 11:40 Deltasone PO 50 mg QDAY VIOLA Administration Sodium Chloride 10 ml 11/28/18 10:00 12/15/18 22:00 Sodium Chloride Flush Syringe 10 Ml IV 10 ml BID VIOLA Administration Sodium Chloride 10 ml 11/28/18 03:02 Sodium Chloride Flush Syringe 10 Ml IV PRN PRN LINE FLUSH
[2018-12-16 09:09] LABS: Hematocrit 25.3 % (30.3-42.9); Hemoglobin 8.5 gm/dl (10.1-14.3); Mean Corpuscular HGB Conc 33 % (30-34); Mean Corpuscular Volume 86 fl (79-97); Platelet Count 363 K/mm3 (140-440); Red Blood Count 2.95 M/mm3 (3.65-5.03); Red Cell Distribution Width 17.7 % (13.2-15.2)
[2018-12-16] MEDS: PROTONIX PO SCH ×2 (09:31→21:39)
[2018-12-16] MEDS: SODIUM CHLORIDE FLUSH SYRINGE 10 ML IV SCH ×2 (09:31→21:39)
[2018-12-16] MEDS: DELTASONE PO SCH (09:32)
[2018-12-16] MEDS: FLONASE NS SCH ×2 (09:32→21:39)
[2018-12-16] MEDS: HumaLOG SUB-Q SCH ×4 (09:33→22:47)
[2018-12-16] MEDS: CORDARONE 900 MG in D5W 482 ML IV SCH (09:37)
[2018-12-16 09:42] LABS: BUN/Creatinine Ratio 13; Blood Urea Nitrogen 13 mg/dL (7-17); Calcium 8.9 mg/dL (8.4-10.2); Hemolysis Index 0
--- NOTE | 2018-12-16 11:43 | Progress Note ---
Assessment and Plan Hyperosmolar hyperglycemic state, newly diagnosed DM Acute metabolic encephalopathy Head CT scan negative Systemic sclerosis Occluded left anterior tibial and dorsalis pedis artery by arterial doppler Acute GI bleed IV heparin discontinued Sleep apnea on CPAP as an outpatient Interstitial Lung disease Hypertension Chronic systolic heart failure, EF of 20-25% Paroxysmal Afib/flutter on IV amiodarone and digoxin Presence of AICD on 11/28/18 patient had multiple shocks from her ICD for runs of VT/VF Elevated troponin Probably secondary to demand ischemia due to acute process Echocardiogram shows no evidence of thrombus or vegetation. Decreased left ventricular systolic function 20-25%. RODNEY reports a small mobile echogenic density noted on the PM wire on the RA side - this is likely a small thrombus given negative blood cultures. This is on the right side of the heart and therefore has nothing to do with her upper extremity process. Typically we recommend systemic anticoagulation for 3 months then re- imaging to document resolution of the small clot. Subjective Date of service: 12/16/18 Principal diagnosis: GI bleeding Interval history: Patient denies palpitations. IV amiodarone continues. Objective Vital Signs Temp Pulse Pulse Resp BP Pulse Ox 12/16/18 10:00 103 H 28 H 114/70 100 12/16/18 09:00 128 H 34 H 123/76 100 12/16/18 08:00 107 H 107 H 30 H 132/85 99 12/16/18 07:00 107 H 33 H 106/67 98 12/16/18 06:00 134 H 37 H 117/72 98 12/16/18 05:00 91 H 19 122/69 98 12/16/18 04:11 97.8 F 12/16/18 04:00 103 H 150 H 34 H 100/74 98 12/16/18 03:00 121 H 39 H 107/56 100 12/16/18 02:00 105 H 150 H 19 104/60 100 12/16/18 01:00 106 H 20 127/91 99 12/16/18 00:26 97.6 F 12/16/18 00:00 106 H 150 H 34 H 127/77 100 12/15/18 23:00 136 H 40 H 113/62 100 12/15/18 22:00 136 H 150 H 26 H 103/73 100 12/15/18 21:31 137 H 22 102/67 100 12/15/18 21:00 133 H 24 123/69 12/15/18 20:50 100 12/15/18 20:21 98.1 F 12/15/18 20:00 137 H 150 H 32 H 111/71 100 12/15/18 19:00 137 H 26 H 144/66 100 12/15/18 18:00 135 H 32 H 124/73 12/15/18 17:00 140 H 20 132/81 99 12/15/18 16:00 142 H 150 H 17 91/76 100 12/15/18 15:00 142 H 15 100/70 100 12/15/18 14:00 142 H 35 H 121/71 100 12/15/18 13:00 147 H 27 H 112/66 12/15/18 12:00 98.4 F 146 H 149 H 26 H 96/75 100 - Physical Examination General: No Apparent Distress HEENT: Positive: PERRL Neck: Positive: trachea midline Cardiac: Positive: Reg Rate and Rhythm Lungs: Positive: Decreased Breath Sounds Neuro: Positive: Grossly Intact Abdomen: Positive: Soft Extremities: Absent: edema - Labs and Meds CBC 12/16/18 Range/Units 08:52 WBC 21.5 H (4.5-11.0) K/mm3 RBC 2.95 L (3.65-5.03) M/mm3 Hgb 8.5 L (10.1-14.3) gm/dl Hct 25.3 L (30.3-42.9) % Plt Count 363 (140-440) K/mm3 Comprehensive Metabolic Panel 12/16/18 12/16/18 Range/Units 00:15 08:52 Sodium 133 L (137-145) mmol/L Potassium 3.8 (3.6-5.0) mmol/L Chloride 93.8 L (98-107) mmol/L Carbon Dioxide 30 (22-30) mmol/L BUN 13 (7-17) mg/dL Creatinine 1.0 (0.7-1.2) mg/dL Glucose 199 H 261 H (65-100) mg/dL Calcium 8.9 (8.4-10.2) mg/dL
--- NOTE | 2018-12-16 14:48 | Progress Note ---
Assessment and Plan /Paroxysmal Afib/flutter - Due to low blood pressure, she cannot tolerate typical AV node blockers. - Per cardiology started on digoxin load and maintenance dose, and placed on iv amiodarone drip today. plan for a RODNEY/CV on Thursday if patient remains in rapid aflutter. / Acute rectal bleeding - s/p one unit FFP, hold heparin - has had GI bleeding/epistaxis/vaginal bleeding after starting heparin prior - will f/u GI recommendation, cont to monitor h/h - dropped hb below 8 - considering extensive cardiac history transfused one unit PRBC /Ischemic lower > upper extremity with dry gangrene with h/o Raynaud's phenomenon patient has Occluded left anterior tibial and dorsalis pedis artery by arterial doppler Vasc Surgery following Dr. Hernandez, plan for amputation when clear line of demarcation achieved - patient can f/u as outpt as it may take few weeks HIT panel -negative, +THERESE /Hyperosmolar hyperglycemic state (HHS) in a newly diagnosed Diabetes-new onset Patient was admitted to the ICU on insulin drip, now off Insulin drip Continue serial BMP level monitoring, Cont. Novolin 70/30 /Diabetes mellitus type 2-new onset, cont SSI /SIRS with leukemoid reaction Present on admission with leukocytosis, tachycardia, tachypnea. Likely from limb ischemia. No acute signs of infection at the present time. Continue off antibiotics. CT abd/pelvis showed generalized bronchiectasis Blood cultures no growth /Vtach s/p shocked 8 tiemes by AICD, as per interrogation, notes in paper chart Cont. Amiodarone cardiology following, off BB for hypotemsion /Metabolic encephalopathy, resolved Head CT scan negative We'll monitor clinically /-Acute hypoxic respiratory failure. O2 and BiPAP as clinically indicated. /-CATRACHO Continue CPAP during sleep and when necessary. /-Interstitial lung disease. Continue per pulmonary. nebs as needed /Systemic sclerosis, restart celcept /-Elevated troponin; nonspecific supportive care /-EDGARDO; Probably vasomotor nephropathy due to dehydration Resolved /Abnormal LFT Probably due to acute process -CT abd/pelvis negative for liver pathology -We'll monitor levels /-Hypotension - s/p levophed /Cardiomyopathy with EF of 20-25% -Status post AICD placement -No acute exacerbation /GERD -On famotidine /Severe malnutrition/hypoalbuminemia: Nutrition consult /DVT prophylaxis: off hold heparin now for rectal bleeding Disposition; transfer to [place] Brief History: 38-year-old female patient with history of scleroderma severe cardiomyopathy history of V. fib V. tach runs status post ICD and recently started on CellCept who was brought to the ED via EMS on account of generalized weakness,confusion, multiple episodes of nausea with vomiting generalized weakness and poor oral intake. Also noted some bluish discoloration of her feet which prompted her significant other to call 911. She noted to have BG of 1088, placed on insulin drip, admitted to ICU. Vascular, hematology oncologist evaluated the patient, started on heparin drip for bilateral lower extremity ischemia with the development of cyanotic bilateral feet and cyanotic left upper extremity left mi ddle digit. Had brief episode of GI bleeding, GI evaluated the patient, since patient did not have new episodes of GI bleeding, advised to continue heparin drip and closely monitor H&H. Orthopedic has evaluated the patient and is planning surgery once the demarcation of ischemia is clear. Now she had rectal bleeding 12/12 and off heparin drip, vascular/ortho now to plan for amputation as outpt. Hospitalist Physical exam: GENERAL: lying on bed appeared to be in no discomfort. HEENT: Normocephalic. Atraumatic. No conjunctival congestion or icterus. Patient has moist mucous membranes. NECK: Supple. Trachea midline. CHEST/LUNGS: Clear to auscultated bilaterally, breathing nonlabored. No wheezes crackles or rhonchi. HEART/CARDIOVASCULAR: Regular in rate and rhythm. S1 and S2 positive. ABDOMEN: Abdomen is soft, nontender. Patient has normal bowel sounds. SKIN: bruises over arms. Warm and dry. NEURO: No focal motor deficit. Follows command. MUSCULOSKELETAL: No joint effusion or tenderness. EXTRIMITY: + cyanosis on b/l LE, The bilateral feet are warm, but there is ischemic, partially demarcated tissue at the midfoot near the hindfoot and the forefoot on the right side and left forefoot on the left side. PSYCH: Cooperative. Subjective Date of service: 12/16/18 Principal diagnosis: GI bleeding Interval history: Patient seen and examined. Medical records and medication list reviewed. H/h stable, off heparin drip now Discussed plan of care at bedside with patient. HR remained atrial fib/flutter on amioderone drip Objective - Constitutional Vitals: Vital Signs - 12hr 12/16/18 12/16/18 12/16/18 03:00 04:00 04:11 Temperature 97.8 F Pulse Rate 121 H 103 H Pulse Rate [ 150 H From Monitor] Respiratory 39 H 34 H Rate Blood Pressure 107/56 100/74 O2 Sat by Pulse 100 98 Oximetry 12/16/18 12/16/18 12/16/18 05:00 06:00 07:00 Temperature Pulse Rate 91 H 134 H 107 H Pulse Rate [ From Monitor] Respiratory 19 37 H 33 H Rate Blood Pressure 122/69 117/72 106/67 O2 Sat by Pulse 98 98 98 Oximetry 12/16/18 12/16/18 12/16/18 08:00 09:00 10:00 Temperature Pulse Rate 107 H 128 H 103 H Pulse Rate [ 107 H From Monitor] Respiratory 30 H 34 H 28 H Rate Blood Pressure 132/85 123/76 114/70 O2 Sat by Pulse 99 100 100 Oximetry 12/16/18 12/16/18 12/16/18 11:00 12:00 13:00 Temperature 97.2 F L Pulse Rate 103 H 102 H 109 H Pulse Rate [ 109 H From Monitor] Respiratory 16 29 H 19 Rate Blood Pressure 115/46 103/50 107/83 O2 Sat by Pulse 100 100 100 Oximetry 12/16/18 14:00 Temperature Pulse Rate 140 H Pulse Rate [ From Monitor] Respiratory 26 H Rate Blood Pressure 121/95 O2 Sat by Pulse 99 Oximetry - Labs CBC & Chem 7: 12/16/18 08:52 12/16/18 08:52 Labs: Abnormal lab results 12/15/18 12/15/18 12/15/18 Range/Units 08:32 16:38 20:35 WBC (4.5-11.0) K/mm3 RBC (3.65-5.03) M/mm3 Hgb (10.1-14.3) gm/dl Hct (30.3-42.9) % RDW (13.2-15.2) % Sodium (137-145) mmol/L Chloride (98-107) mmol/L Glucose (65-100) mg/dL POC Glucose 144 H 158 H 198 H (70-105) 12/16/18 12/16/18 12/16/18 Range/Units 00:15 00:42 08:34 WBC (4.5-11.0) K/mm3 RBC (3.65-5.03) M/mm3 Hgb (10.1-14.3) gm/dl Hct (30.3-42.9) % RDW (13.2-15.2) % Sodium (137-145) mmol/L Chloride (98-107) mmol/L Glucose 199 H (65-100) mg/dL POC Glucose 289 H 201 H (70-105) 12/16/18 12/16/18 12/16/18 Range/Units 08:52 08:52 12:22 WBC 21.5 H (4.5-11.0) K/mm3 RBC 2.95 L (3.65-5.03) M/mm3 Hgb 8.5 L (10.1-14.3) gm/dl Hct 25.3 L (30.3-42.9) % RDW 17.7 H (13.2-15.2) % Sodium 133 L (137-145) mmol/L Chloride 93.8 L (98-107) mmol/L Glucose 261 H (65-100) mg/dL POC Glucose 152 H (70-105)
--- NOTE | 2018-12-16 17:54 | Gastroenterology Progress Note ---
Assessment and Plan GI: no signs active bleeding - follow h/h, transfuse as needed - no plans to scope unless very necessary - no changes at this time - will follow Subjective Date of service: 12/16/18 Principal diagnosis: GI bleeding Interval history: - slight decrease h/h w/o signs active bleed Objective - Constitutional Vitals: Temp Pulse Resp BP Pulse Ox 98.2 F 145 H 33 H 132/88 100 12/16/18 15:58 12/16/18 16:00 12/16/18 16:00 12/16/18 16:00 12/16/18 16:00 General appearance: no acute distress - EENT Eyes: PERRL - Respiratory Respiratory: bilateral: CTA - Cardiovascular Rhythm: regular Heart Sounds: Present: S1 & S2 - Gastrointestinal General gastrointestinal: Present: soft, non-tender, non-distended - Labs CBC & Chem 7: 12/16/18 08:52 12/16/18 08:52 Labs: Laboratory Results - last 24 hr 12/15/18 12/16/18 12/16/18 20:35 00:15 00:42 WBC RBC Hgb Hct MCV MCH MCHC RDW Plt Count Sodium Potassium Chloride Carbon Dioxide Anion Gap BUN Creatinine Estimated GFR BUN/Creatinine Ratio Glucose 199 H POC Glucose 198 H 289 H Calcium 12/16/18 12/16/18 12/16/18 08:34 08:52 08:52 WBC 21.5 H RBC 2.95 L Hgb 8.5 L Hct 25.3 L MCV 86 MCH 29 MCHC 33 RDW 17.7 H Plt Count 363 Sodium 133 L Potassium 3.8 Chloride 93.8 L Carbon Dioxide 30 Anion Gap 13 BUN 13 Creatinine 1.0 Estimated GFR > 60 BUN/Creatinine Ratio 13 Glucose 261 H POC Glucose 201 H Calcium 8.9 12/16/18 12:22 WBC RBC Hgb Hct MCV MCH MCHC RDW Plt Count Sodium Potassium Chloride Carbon Dioxide Anion Gap BUN Creatinine Estimated GFR BUN/Creatinine Ratio Glucose POC Glucose 152 H Calcium
[2018-12-16] MEDS: SINGULAIR PO SCH (17:59)
[2018-12-16] MEDS: LANOXIN IV SCH (18:00)
[2018-12-16] MEDS: ELAVIL PO SCH (21:39)
[2018-12-16] MEDS ORDERED: CELLCEPT PO SCH (22:00)
[2018-12-17] MEDS: MORPHINE IV PRN (00:02)
--- NOTE | 2018-12-17 07:17 | Hem/Onc Progress Note ---
Assessment and Plan Peripheral extremities both lower and left upper extremity thromboembolic disease. This may be related to her generalized disease etiology versus rheumatology issue versus embolic phenomena. There was a question if this is HIT. However, the platelet count is not low. HIT test Negative 1. h/o Elevated bilirubin. 2. h/o Electrolyte imbalance. 3. Arterial thrombus, on anticoagulation. 4. h/o Diabetic ketoacidosis. 5. h/o Hypertension. 6. h/o Ischemic cardiomyopathy with low ejection fraction. 7. h/o Respiratory failure. 8. h/o Sepsis, elevated troponin /CPK. I will follow the patient during inpatient stay and then in the clinic setting. The cause of thromboembolism is not clear. echo done RODNEY Done HIT negative h/o high hct likely sec to sleep apnea - later anemia due to bleed dark toes - with arterial thrombus HIT neg - hence IV heparin was used there is a question if her signs and symptoms are sec to rheumatology issues 12/17 due to h/o GI bleed - off heparin - low EF as per vascular note - podiatry or ortho will do sx - once demarcation clear this is a challenging case - with bleeding and clotting issues - Low EF issues as per pt - transfer to [place] planned d/w dr costa - Patient Problems (1) Ischemia Current Visit: Yes Status: Acute Subjective Date of service: 12/17/18 Principal diagnosis: ischemic leg Interval history: as per pt transfer to [place] planned Objective - Exam Narrative Exam: Pain - hand and leg General appearance pain Performance status limited self care Eyes - no icterus ENT - no bleeding LNs cervical not palpable Neck - no LN Respiratory Normal Breath sounds - CTA CVS S1 S2 + Extremities cold toes and dark left hand finger General GI Soft Rectal deferred female - deferred Skin warm Musculoskeletal moving extremitites - dark foot and left hand finger Neurologically awake - Constitutional Vitals: Last Vital Signs Temp 97.6 F 12/17/18 04:10 Pulse 71 12/17/18 04:10 Resp 18 12/17/18 04:10 BP 112/66 12/17/18 04:10 Pulse Ox 100 12/17/18 04:10 - Labs Lab Results: Laboratory Results - last 24 hr 12/16/18 12/16/18 12/16/18 08:34 08:52 08:52 WBC 21.5 H RBC 2.95 L Hgb 8.5 L Hct 25.3 L MCV 86 MCH 29 MCHC 33 RDW 17.7 H Plt Count 363 Sodium 133 L Potassium 3.8 Chloride 93.8 L Carbon Dioxide 30 Anion Gap 13 BUN 13 Creatinine 1.0 Estimated GFR > 60 BUN/Creatinine Ratio 13 Glucose 261 H POC Glucose 201 H Calcium 8.9 12/16/18 12/16/18 12/16/18 12:22 17:55 21:50 WBC RBC Hgb Hct MCV MCH MCHC RDW Plt Count Sodium Potassium Chloride Carbon Dioxide Anion Gap BUN Creatinine Estimated GFR BUN/Creatinine Ratio Glucose POC Glucose 152 H 234 H 278 H Calcium 12/17/18 00:17 WBC RBC Hgb Hct MCV MCH MCHC RDW Plt Count Sodium Potassium Chloride Carbon Dioxide Anion Gap BUN Creatinine Estimated GFR BUN/Creatinine Ratio Glucose POC Glucose 240 H Calcium Medications & Allergies - Medications Allergies/Adverse Reactions: Allergies lisinopril Adverse Reaction (Severe, Verified 12/17/13 19:00) SORE THROAT;PERSISTENT COUGH Home Medications: Home Medications Medication Instructions Recorded Confirmed Last Taken Type Aspirin [Aspirin BABY CHEW TAB] 81 mg PO QDAY 11/28/18 11/29/18 11/26/18 History Fluticasone [Flonase] 1 spray NS BID 11/28/18 11/28/18 Unknown History Furosemide [Lasix TAB] 40 mg PO BID 11/28/18 11/28/18 Unknown History Ibuprofen [Motrin] 600 mg PO Q6H PRN 11/28/18 11/28/18 Unknown History Montelukast [Singulair] 10 mg PO QPM 11/28/18 11/28/18 Unknown History Mycophenolate [Cellcept] 500 mg PO BID 11/28/18 11/28/18 Unknown History Mycophenolate [Cellcept] 500 mg PO BID PRN MDD 2 TABS 11/28/18 11/28/18 Unknown History Pantoprazole [Protonix] 40 mg PO QDAY 11/28/18 11/28/18 Unknown History Sacubitril/Valsartan [Entresto 1 each PO BID 11/28/18 11/28/18 Unknown History 49-51 mg] predniSONE [Deltasone] 50 mg PO QDAY 11/28/18 11/28/18 Unknown History raNITIdine HCl [Zantac] 150 mg PO BID 11/28/18 11/28/18 Unknown History Amitriptyline [Elavil] 25 mg PO HS 11/29/18 11/29/18 11/26/18 History Aspirin [Adult Aspirin] 81 mg PO ONCE 11/29/18 11/29/18 11/26/18 History Entresto 49-51 mg 49 mg PO BID 11/29/18 11/29/18 11/26/18 History HYDROcodone/APAP 5-325 5 mg PO Q6HR PRN 11/29/18 11/29/18 Unknown History Active Medications: Generic Name Dose Route Start Last Admin Trade Name Freq PRN Reason Stop Dose Admin Acetaminophen 650 mg 11/28/18 03:02 12/14/18 22:01 Tylenol PO 650 mg Q4H PRN Administration Pain MILD(1-3)/Fever >100.5/TURPIN Alprazolam 0.25 mg 11/30/18 01:09 12/14/18 04:57 Xanax PO 0.25 mg Q8H PRN Administration Anxiety Amitriptyline HCl 25 mg 11/29/18 22:00 12/16/18 21:39 Elavil PO 25 mg HS VIOLA Administration Dextrose 0 ml 11/28/18 02:19 12/16/18 00:17 D50w (25gm) Syringe IV 50 ml PRN PRN Administration Hypoglycemia Digoxin 0.25 mg 12/15/18 17:00 12/16/18 18:00 Lanoxin IV 0.25 mg QDAY@1700 VIOLA Administration Fluticasone Propionate 50 mcg 11/29/18 10:00 12/16/18 21:39 Flonase NS 50 mcg BID VIOLA Administration Hydrophilic Ointment 1 applic 11/30/18 11:55 Vaseline Lip Therapy TP DIRECT PRN DRY LIPS Amiodarone HCl 900 mg/ 500 mls @ 33.333 mls/hr 12/15/18 11:00 12/16/18 09:37 Dextrose IV 0.5 mg/min DIRECT VIOLA 16.667 mls/hr Administration Protocol 1 MG/MIN Insulin Human Isoph/Insulin Regular 24 unit 12/10/18 09:00 12/16/18 17:59 Humulin 70/30 SUB-Q 24 unit BIDDIAB VIOLA Administration Insulin Human Lispro 0 unit 11/30/18 09:00 12/16/18 22:47 Humalog SUB-Q 4 unit ACHS VIOLA Administration Protocol Montelukast Sodium 10 mg 11/29/18 18:00 12/16/18 17:59 Singulair PO 10 mg QPM VIOLA Administration Morphine Sulfate 2 mg 11/28/18 03:02 12/17/18 00:02 Morphine IV 2 mg Q4H PRN Administration Pain, Moderate (4-6) Ondansetron HCl 4 mg 11/28/18 03:02 Zofran IV Q8H PRN Nausea And Vomiting Pantoprazole Sodium 40 mg 12/15/18 10:00 12/16/18 21:39 Protonix PO 40 mg BID VIOLA Administration Prednisone 50 mg 11/29/18 10:00 12/16/18 09:32 Deltasone PO 50 mg QDAY VIOLA Administration Sodium Chloride 10 ml 11/28/18 10:00 12/16/18 21:39 Sodium Chloride Flush Syringe 10 Ml IV 10 ml BID VIOLA Administration Sodium Chloride 10 ml 11/28/18 03:02 Sodium Chloride Flush Syringe 10 Ml IV PRN PRN LINE FLUSH
[2018-12-17] MEDS: HumaLOG SUB-Q SCH ×4 (09:00→21:47)
[2018-12-17] MEDS ORDERED: DELTASONE PO SCH (09:43)
[2018-12-17 09:56] LABS: Hematocrit 25.4 % (30.3-42.9); Hemoglobin 8.2 gm/dl (10.1-14.3); Mean Corpuscular HGB Conc 32 % (30-34); Mean Corpuscular Volume 88 fl (79-97); Platelet Count 452 K/mm3 (140-440); Red Cell Distribution Width 17.7 % (13.2-15.2)
[2018-12-17] MEDS: FLONASE NS SCH ×2 (10:13→21:47)
[2018-12-17] MEDS: PROTONIX PO SCH ×2 (10:14→21:46)
[2018-12-17] MEDS: SODIUM CHLORIDE FLUSH SYRINGE 10 ML IV SCH ×2 (10:15→21:47)
--- NOTE | 2018-12-17 10:18 | Progress Note ---
Assessment and Plan Hyperosmolar hyperglycemic state, newly diagnosed DM Acute metabolic encephalopathy Head CT scan negative Systemic sclerosis Occluded left anterior tibial and dorsalis pedis artery by arterial doppler Acute GI bleed IV heparin discontinued Sleep apnea on CPAP as an outpatient Interstitial Lung disease Hypertension Chronic systolic heart failure, EF of 20-25% Paroxysmal Afib/flutter on IV amiodarone and digoxin Presence of AICD on 11/28/18 patient had multiple shocks from her ICD for runs of VT/VF Elevated troponin Probably secondary to demand ischemia due to acute process Echocardiogram shows no evidence of thrombus or vegetation. Decreased left ventricular systolic function 20-25%. RODNEY reports a small mobile echogenic density noted on the PM wire on the RA side - this is likely a small thrombus given negative blood cultures. This is on the right side of the heart and therefore has nothing to do with her upper extremity process. Typically we recommend systemic anticoagulation for 3 months then re- imaging to document resolution of the small clot. We will discontinue IV amiodarone and digoxin and instead change to oral amiodarone 400mg bid and digoxin 0.25 daily for optimal rate control of atrial flutter. Subjective Date of service: 12/17/18 Principal diagnosis: GI bleeding Interval history: Patient denies palpitations. Atrial flutter with a well controlled ventricular rate on telemetry. IV amiodarone continues. Objective Vital Signs Temp Pulse Pulse Resp BP BP Pulse Ox 12/17/18 08:17 98.4 F 71 16 124/72 12/17/18 04:10 97.6 F 71 18 112/66 100 12/17/18 00:06 98.8 F 75 20 110/68 100 12/16/18 22:00 86 12/16/18 21:04 100 12/16/18 21:01 98.2 F 123 H 18 124/63 97 12/16/18 18:27 142 H 12/16/18 18:00 142 H 22 121/83 100 12/16/18 17:00 142 H 25 H 148/91 100 12/16/18 16:00 145 H 145 H 33 H 132/88 99 12/16/18 15:58 98.2 F 12/16/18 15:00 143 H 28 H 123/85 100 12/16/18 14:00 140 H 26 H 121/95 99 12/16/18 13:00 109 H 19 107/83 100 12/16/18 12:00 97.2 F L 102 H 109 H 29 H 103/50 100 12/16/18 11:00 103 H 16 115/46 100 - Physical Examination General: No Apparent Distress HEENT: Positive: PERRL Neck: Positive: trachea midline Cardiac: Positive: irregularly irregular Lungs: Positive: Decreased Breath Sounds Neuro: Positive: Grossly Intact Abdomen: Positive: Soft Extremities: Present: Black. Absent: edema - Labs and Meds CBC 12/17/18 Range/Units 09:10 WBC 22.5 H (4.5-11.0) K/mm3 RBC 2.90 L (3.65-5.03) M/mm3 Hgb 8.2 L (10.1-14.3) gm/dl Hct 25.4 L (30.3-42.9) % Plt Count 452 H (140-440) K/mm3
[2018-12-17 10:23] LABS: BUN/Creatinine Ratio 12; Blood Urea Nitrogen 13 mg/dL (7-17); Hemolysis Index 0
--- NOTE | 2018-12-17 14:36 | Progress Note ---
Assessment and Plan /Paroxysmal Afib/flutter - Due to low blood pressure, she cannot tolerate typical AV node blockers. - Per cardiology started on digoxin load and maintenance dose, and s/p iv amiodarone drip - discontinue IV amiodarone today and instead changed to oral amiodarone 400mg bid and digoxin 0.25 daily for optimal rate control of atrial flutter. - not on AC for recent rectal bleeding on 12/13 / Acute rectal bleeding - s/p one unit FFP, hold heparin - has had GI bleeding/epistaxis/vaginal bleeding after starting heparin prior - will f/u GI recommendation, cont to monitor h/h - dropped hb below 8 - considering extensive cardiac history transfused one unit PRBC /Ischemic lower > upper extremity with dry gangrene with h/o Raynaud's pheno more patient has Occluded left anterior tibial and dorsalis pedis artery by arterial doppler Vasc Surgery following Dr. Hernandez, plan for amputation when clear line of demarcation achieved - patient can f/u as outpt as it may take few weeks HIT panel -negative, +THERESE /Hyperosmolar hyperglycemic state (HHS) in a newly diagnosed Diabetes-new onset Patient was admitted to the ICU on insulin drip, now off Insulin drip Continue serial BMP level monitoring, Cont. Novolin 70/30 /Diabetes mellitus type 2-new onset, cont SSI /SIRS with leukemoid reaction Present on admission with leukocytosis, tachycardia, tachypnea. Likely from limb ischemia. No acute signs of infection at the present time. Continue off antibiotics. CT abd/pelvis showed generalized bronchiectasis Blood cultures no growth /Vtach s/p shocked 8 tiemes by AICD, as per interrogation, notes in paper chart Cont. Amiodarone cardiology following, off BB for hypotemsion /Metabolic encephalopathy, resolved Head CT scan negative We'll monitor clinically /-Acute hypoxic respiratory failure. O2 and BiPAP as clinically indicated. /-CATRACHO Continue CPAP during sleep and when necessary. /-Interstitial lung disease. Continue per pulmonary. nebs as needed /Systemic sclerosis, restart celcept /-Elevated troponin; nonspecific supportive care /-EDGARDO; Probably vasomotor nephropathy due to dehydration Resolved /Abnormal LFT Probably due to acute process -CT abd/pelvis negative for liver pathology -We'll monitor levels /-Hypotension - s/p levophed /Cardiomyopathy with EF of 20-25% -Status post AICD placement -No acute exacerbation /GERD -On famotidine /Severe malnutrition/hypoalbuminemia: Nutrition consult /DVT prophylaxis: off hold heparin now for rectal bleeding Disposition; transfer to [place] when bed available Brief History: 38-year-old female patient with history of scleroderma severe cardiomyopathy history of V. fib V. tach runs status post ICD and recently started on CellCept who was brought to the ED via EMS on account of generalized weakness,confusion, multiple episodes of nausea with vomiting generalized weakness and poor oral intake. Also noted some bluish discoloration of her feet which prompted her significant other to call 911. She noted to have BG of 1088, placed on insulin drip, admitted to ICU. Vascular, hematology oncologist evaluated the patient, started on heparin drip for bilateral lower extremity ischemia with the development of cyanotic bilateral feet and cyanotic left upper extremity left middle digit. Had brief episode of GI bleeding, GI evaluated the patient, since patient did not have new episodes of GI bleeding, advised to continue heparin drip and closely monitor H&H. Orthopedic has evaluated the patient and is planning surgery once the demarcation of ischemia is clear. Now she had rectal bleeding 12/12 and off heparin drip, vascular/ortho now to plan for amputation as outpt. Hospitalist Physical exam: GENERAL: lying on bed appeared to be in no discomfort. HEENT: Normocephalic. Atraumatic. No conjunctival congestion or icterus. Patient has moist mucous membranes. NECK: Supple. Trachea midline. CHEST/LUNGS: Clear to auscultated bilaterally, breathing nonlabored. No wheezes crackles or rhonchi. HEART/CARDIOVASCULAR: Regular in rate and rhythm. S1 and S2 positive. ABDOMEN: Abdomen is soft, nontender. Patient has normal bowel sounds. SKIN: bruises over arms. Warm and dry. NEURO: No focal motor deficit. Follows command. MUSCULOSKELETAL: No joint effusion or tenderness. EXTRIMITY: + cyanosis on b/l LE, The bilateral feet are warm, but there is ischemic, partially demarcated tissue at the midfoot near the hindfoot and the forefoot on the right side and left forefoot on the left side. PSYCH: Cooperative. Subjective Date of service: 12/17/18 Principal diagnosis: GI bleeding Interval history: Patient seen and examined. Medical records and medication list reviewed. H/h stable, off heparin drip now Discussed plan of care at bedside with patient. HR remained atrial fib/flutter on amioderone drip Objective - Constitutional Vitals: Vital Signs - 12hr 12/17/18 12/17/18 12/17/18 04:10 08:17 10:00 Temperature 97.6 F 98.4 F Pulse Rate 71 71 Respiratory 18 16 Rate Blood Pressure 112/66 Blood Pressure 124/72 [Left] O2 Sat by Pulse 100 100 Oximetry - Labs CBC & Chem 7: 12/18/18 10:06 12/18/18 10:06 Labs: Abnormal lab results 12/16/18 12/16/18 12/17/18 Range/Units 17:55 21:50 00:17 WBC (4.5-11.0) K/mm3 RBC (3.65-5.03) M/mm3 Hgb (10.1-14.3) gm/dl Hct (30.3-42.9) % RDW (13.2-15.2) % Plt Count (140-440) K/mm3 Potassium (3.6-5.0) mmol/L Chloride (98-107) mmol/L Glucose (65-100) mg/dL POC Glucose 234 H 278 H 240 H (70-105) 12/17/18 12/17/18 12/17/18 Range/Units 08:20 09:10 09:10 WBC 22.5 H (4.5-11.0) K/mm3 RBC 2.90 L (3.65-5.03) M/mm3 Hgb 8.2 L (10.1-14.3) gm/dl Hct 25.4 L (30.3-42.9) % RDW 17.7 H (13.2-15.2) % Plt Count 452 H (140-440) K/mm3 Potassium 3.5 L (3.6-5.0) mmol/L Chloride 95.7 L (98-107) mmol/L Glucose 136 H (65-100) mg/dL POC Glucose 128 H (70-105) 12/17/18 Range/Units 12:36 WBC (4.5-11.0) K/mm3 RBC (3.65-5.03) M/mm3 Hgb (10.1-14.3) gm/dl Hct (30.3-42.9) % RDW (13.2-15.2) % Plt Count (140-440) K/mm3 Potassium (3.6-5.0) mmol/L Chloride (98-107) mmol/L Glucose (65-100) mg/dL POC Glucose 135 H (70-105)
[2018-12-17] MEDS: CELLCEPT PO SCH ×2 (15:06→21:46)
[2018-12-17] MEDS: DELTASONE PO SCH (15:06)
[2018-12-17] MEDS: CORDARONE PO SCH ×2 (15:06→21:45)
--- NOTE | 2018-12-17 15:19 | Gastroenterology Progress Note ---
Assessment and Plan GI: stable w/o further signs bleeding - follow h/h - diet as tolerated - will sign off, call if needed Subjective Date of service: 12/17/18 Principal diagnosis: GI bleeding Interval history: - no GI complaints overnight Objective - Constitutional Vitals: Temp Pulse Resp BP Pulse Ox 98.4 F 71 16 124/72 100 12/17/18 08:17 12/17/18 08:17 12/17/18 08:17 12/17/18 08:17 12/17/18 10:00 General appearance: no acute distress - EENT Eyes: PERRL - Respiratory Respiratory: bilateral: CTA - Cardiovascular Rhythm: regular Heart Sounds: Present: S1 & S2 - Gastrointestinal General gastrointestinal: Present: soft, non-tender, non-distended - Labs CBC & Chem 7: 12/17/18 09:10 12/17/18 09:10 Labs: Laboratory Results - last 24 hr 12/16/18 12/16/18 12/17/18 17:55 21:50 00:17 WBC RBC Hgb Hct MCV MCH MCHC RDW Plt Count Sodium Potassium Chloride Carbon Dioxide Anion Gap BUN Creatinine Estimated GFR BUN/Creatinine Ratio Glucose POC Glucose 234 H 278 H 240 H Calcium 12/17/18 12/17/18 12/17/18 08:20 09:10 09:10 WBC 22.5 H RBC 2.90 L Hgb 8.2 L Hct 25.4 L MCV 88 MCH 28 MCHC 32 RDW 17.7 H Plt Count 452 H Sodium 137 Potassium 3.5 L Chloride 95.7 L Carbon Dioxide 28 Anion Gap 17 BUN 13 Creatinine 1.1 Estimated GFR > 60 BUN/Creatinine Ratio 12 Glucose 136 H POC Glucose 128 H Calcium 9.0 12/17/18 12:36 WBC RBC Hgb Hct MCV MCH MCHC RDW Plt Count Sodium Potassium Chloride Carbon Dioxide Anion Gap BUN Creatinine Estimated GFR BUN/Creatinine Ratio Glucose POC Glucose 135 H Calcium
[2018-12-17] MEDS: LANOXIN PO SCH (18:00)
[2018-12-17] MEDS: SINGULAIR PO SCH (18:00)
[2018-12-17] MEDS: XANAX PO PRN (18:07)
[2018-12-17] MEDS: ELAVIL PO SCH (21:46)
[2018-12-18] MEDS: MORPHINE IV PRN (02:00)
[2018-12-18] MEDS: HumaLOG SUB-Q SCH ×4 (08:30→22:45)
--- NOTE | 2018-12-18 09:10 | Progress Note ---
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 Decreased left ventricular systolic function 20-25%. RODNEY reports a small mobile echogenic density noted on the PM wire on the RA side - this is likely a small thrombus given negative blood cultures. This is on the right side of the heart and therefore has nothing to do with her upper extremity process. Typically we recommend systemic anticoagulation for 3 months then re- imaging to document resolution of the small clot. Objective Vital Signs Temp Pulse Resp BP Pulse Ox 12/18/18 08:23 97.9 F 105 H 28 H 128/83 100 12/18/18 03:38 98.2 F 100 H 18 124/77 97 12/18/18 00:31 98.5 F 148 H 16 122/86 100 12/17/18 22:00 153 H 12/17/18 19:47 100 12/17/18 19:35 98.4 F 152 H 18 95/72 99 12/17/18 16:15 98.6 F 153 H 20 108/76 98 12/17/18 14:08 98.6 F 106 H 28 H 120/65 98 12/17/18 10:00 71 100 - Physical Examination General: No Apparent Distress HEENT: Positive: PERRL Neck: Positive: trachea midline Cardiac: Positive: Reg Rate and Rhythm, S1/S2 Lungs: Positive: Normal Exam Neuro: Positive: Grossly Intact Abdomen: Positive: Soft Skin: Positive: Clear Extremities: Present: Black. Absent: edema - Labs and Meds CBC 12/17/18 Range/Units 09:10 WBC 22.5 H (4.5-11.0) K/mm3 RBC 2.90 L (3.65-5.03) M/mm3 Hgb 8.2 L (10.1-14.3) gm/dl Hct 25.4 L (30.3-42.9) % Plt Count 452 H (140-440) K/mm3 Comprehensive Metabolic Panel 12/17/18 Range/Units 09:10 Sodium 137 (137-145) mmol/L Potassium 3.5 L (3.6-5.0) mmol/L Chloride 95.7 L (98-107) mmol/L Carbon Dioxide 28 (22-30) mmol/L BUN 13 (7-17) mg/dL Creatinine 1.1 (0.7-1.2) mg/dL Glucose 136 H (65-100) mg/dL Calcium 9.0 (8.4-10.2) mg/dL
[2018-12-18] MEDS: CORDARONE PO SCH ×2 (10:01→22:42)
[2018-12-18] MEDS: DELTASONE PO SCH (10:01)
[2018-12-18] MEDS: PROTONIX PO SCH ×2 (10:01→22:44)
[2018-12-18] MEDS: CELLCEPT PO SCH ×2 (10:02→22:42)
[2018-12-18] MEDS: FLONASE NS SCH ×2 (10:02→22:44)
[2018-12-18] MEDS: SODIUM CHLORIDE FLUSH SYRINGE 10 ML IV SCH ×2 (10:03→22:00)
[2018-12-18 10:30] LABS: Hematocrit 23.6 % (30.3-42.9); Mean Corpuscular HGB Conc 34 % (30-34); Mean Corpuscular Volume 88 fl (79-97); Platelet Count 456 K/mm3 (140-440)
[2018-12-18 11:09] LABS: BUN/Creatinine Ratio 13; Blood Urea Nitrogen 16 mg/dL (7-17); Calcium 8.7 mg/dL (8.4-10.2); Hemolysis Index 4
[2018-12-18] MEDS: COREG PO SCH ×2 (11:19→22:43)
[2018-12-18] MEDS ORDERED: LOPRESSOR PO SCH (13:00)
--- NOTE | 2018-12-18 13:12 | Event Note ---
Date: 12/18/18 Asked regarding reinitiation of anticoagulation by Dr. Quintana. Chart reviewed. No GI bleed since 12/13/18. Hgb slowly drifting downward. Numerous comorbidites - making colonoscopy/sedation high risk, and strong indications for anticoagulation - with vascular ischemia and atrial arryhthmia. Pt has overall poor prognosis. - given lack of bleeding, would agree with trial of low dose Eliquis - keep on bid PPI - if rebleeds, stop anticoagulation and discuss with Vascular and Cardiology the relative value of anticoagulation. If overwhelming, then proceed with endoscopic evaluation despite high risks, in an effort to find a treatable cause of GI bleed, that could then allow ongoing anticoagulation. Discussed with Dr. Quintana. Please call if needed.
--- NOTE | 2018-12-18 13:20 | Progress Note ---
Assessment and Plan /Paroxysmal Afib/flutter - Due to low blood pressure, she cannot tolerate typical AV node blockers. - Per cardiology started on digoxin load and maintenance dose, and s/p iv amiodarone drip - Now on oral amiodarone 400mg bid, coreg 3.125 mg and digoxin 0.25 daily for optimal rate control of atrial flutter. 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 Hernandez, plan for amputation when clear line of demarcation achieved - patient can f/u as outpt as it may take few weeks HIT panel -negative, +THERESE /Hyperosmolar hyperglycemic state (HHS) in a newly diagnosed Diabetes-new onset Patient was admitted to the ICU on insulin drip, now off Insulin drip Continue serial BMP level monitoring, Cont. Novolin 70/30 /Diabetes mellitus type 2-new onset, cont SSI /SIRS with leukemoid reaction Present on admission with leukocytosis, tachycardia, tachypnea. Likely from limb ischemia. No acute signs of infection at the present time. Continue off antibiotics. CT abd/pelvis showed generalized bronchiectasis Blood cultures no growth /Vtach s/p shocked 8 tiemes by AICD, as per interrogation, notes in paper chart Cont. Amiodarone, resumed BB cardiology following, /Metabolic encephalopathy, resolved Head CT scan negative We'll monitor clinically /-Acute hypoxic respiratory failure. O2 and BiPAP as clinically indicated. /-CATRACHO Continue CPAP during sleep and when necessary. /-Interstitial lung disease. Continue per pulmonary. nebs as needed /Systemic sclerosis, restart celcept /-Elevated troponin; nonspecific supportive care /-EDGARDO; Probably vasomotor nephropathy due to dehydration Resolved /Abnormal LFT Probably due to acute process -CT abd/pelvis negative for liver pathology -We'll monitor levels /-Hypotension - s/p levophed /Cardiomyopathy with EF of 20-25% -Status post AICD placement -No acute exacerbation /GERD -On famotidine /Severe malnutrition/hypoalbuminemia: Nutrition consult /DVT prophylaxis: off hold heparin now for rectal bleeding Disposition; transfer to [facility] when bed available or [facility] Brief History: 38-year-old female patient with history of scleroderma severe cardiomyopathy history of V. fib V. tach runs status post ICD and recently started on CellCept who was brought to the ED via EMS on account of generalized weakness,confusion, multiple episodes of nausea with vomiting generalized weakness and poor oral intake. Also noted some bluish discoloration of her feet which prompted her significant other to call 911. She noted to have BG of 1088, placed on insulin drip, admitted to ICU. Vascular, hematology oncologist evaluated the patient, started on heparin drip for bilateral lower extremity ischemia with the develo pment of cyanotic bilateral feet and cyanotic left upper extremity left middle digit. Had brief episode of GI bleeding, GI evaluated the patient, since patient did not have new episodes of GI bleeding, advised to continue heparin drip and closely monitor H&H. Orthopedic has evaluated the patient and is planning surgery once the demarcation of ischemia is clear. she then had rectal bleeding 12/12 and off heparin drip, transfused one unit of PRBC, vascular/ortho now to plan for amputation as outpt. But then she developed atrial fib/flutter - placed on amioderone drip and digoxin, stopped BB for hypotension. Her h/h remained stable after transfusion, off amioderone drip, resume BB and eliquis low dose BID. Monitor HR and h/h, if stable then plannned to d/c to [facility]. Tried to transfer to [facility] but no bed available. Hospitalist Physical exam: GENERAL: lying on bed appeared to be in no discomfort. HEENT: Normocephalic. Atraumatic. No conjunctival congestion or icterus. Patient has moist mucous membranes. NECK: Supple. Trachea midline. CHEST/LUNGS: Clear to auscultated bilaterally, breathing nonlabored. No wheezes crackles or rhonchi. HEART/CARDIOVASCULAR: Regular in rate and rhythm. S1 and S2 positive. ABDOMEN: Abdomen is soft, nontender. Patient has normal bowel sounds. SKIN: bruises over arms. Warm and dry. NEURO: No focal motor deficit. Follows command. MUSCULOSKELETAL: No joint effusion or tenderness. EXTRIMITY: + cyanosis on b/l LE, The bilateral feet are warm, but there is ischemic, partially demarcated tissue at the midfoot near the hindfoot and the forefoot on the right side and left forefoot on the left side. PSYCH: Cooperative. Subjective Date of service: 12/18/18 Principal diagnosis: GI bleeding Interval history: Patient seen and examined. Medical records and medication list reviewed. H/h stable, off amioderone drip Discussed plan of care at bedside with patient. HR much improved today Objective - Constitutional Vitals: Vital Signs - 12hr 12/18/18 12/18/18 12/18/18 03:38 08:23 10:00 Temperature 98.2 F 97.9 F Pulse Rate 100 H 105 H 99 H Pulse Rate [ 99 H From Monitor] Respiratory 18 28 H Rate Blood Pressure 124/77 128/83 O2 Sat by Pulse 97 100 100 Oximetry 12/18/18 11:19 Temperature Pulse Rate 105 H Pulse Rate [ From Monitor] Respiratory Rate Blood Pressure 128/73 O2 Sat by Pulse Oximetry - Labs CBC & Chem 7: 12/19/18 05:30 12/19/18 05:30 Labs: Abnormal lab results 12/17/18 12/17/18 12/18/18 Range/Units 17:42 21:04 01:55 WBC (4.5-11.0) K/mm3 RBC (3.65-5.03) M/mm3 Hgb (10.1-14.3) gm/dl Hct (30.3-42.9) % RDW (13.2-15.2) % Plt Count (140-440) K/mm3 Sodium (137-145) mmol/L Chloride (98-107) mmol/L Glucose (65-100) mg/dL POC Glucose 138 H 209 H 129 H (70-105) 12/18/18 12/18/18 12/18/18 Range/Units 08:34 10:06 10:06 WBC 21.7 H (4.5-11.0) K/mm3 RBC 2.70 L (3.65-5.03) M/mm3 Hgb 8.0 L (10.1-14.3) gm/dl Hct 23.6 L (30.3-42.9) % RDW 18.0 H (13.2-15.2) % Plt Count 456 H (140-440) K/mm3 Sodium 134 L (137-145) mmol/L Chloride 93.8 L (98-107) mmol/L Glucose 242 H (65-100) mg/dL POC Glucose 149 H (70-105) 12/18/18 Range/Units 11:50 WBC (4.5-11.0) K/mm3 RBC (3.65-5.03) M/mm3 Hgb (10.1-14.3) gm/dl Hct (30.3-42.9) % RDW (13.2-15.2) % Plt Count (140-440) K/mm3 Sodium (137-145) mmol/L Chloride (98-107) mmol/L Glucose (65-100) mg/dL POC Glucose 207 H (70-105)
[2018-12-18] MEDS: SINGULAIR PO SCH (17:12)
[2018-12-18] MEDS: LANOXIN PO SCH (17:12)
--- NOTE | 2018-12-18 18:03 | Hem/Onc Progress Note ---
Assessment and Plan Peripheral extremities both lower and left upper extremity thromboembolic disease. This may be related to her generalized disease etiology versus rheumatology issue versus embolic phenomena. There was a question if this is HIT. However, the platelet count is not low. HIT test Negative 1. h/o Elevated bilirubin. 2. h/o Electrolyte imbalance. 3. Arterial thrombus, on anticoagulation. 4. h/o Diabetic ketoacidosis. 5. h/o Hypertension. 6. h/o Ischemic cardiomyopathy with low ejection fraction. 7. h/o Respiratory failure. 8. h/o Sepsis, elevated troponin /CPK. I will follow the patient during inpatient stay and then in the clinic setting. The cause of thromboembolism is not clear. echo done RODNEY Done HIT negative h/o high hct likely sec to sleep apnea - later anemia due to bleed dark toes - with arterial thrombus HIT neg - hence IV heparin was used there is a question if her signs and symptoms are sec to rheumatology issues 12/18 due to h/o GI bleed - off heparin - low EF as per vascular note - podiatry or ortho will do sx - once demarcation clear this is a challenging case - with bleeding and clotting issues - Low EF issues as per pt - transfer to [place] planned - pending same d/w dr costa on 12/16 eliquis 2.5 as a trial for now - Patient Problems (1) Ischemia Current Visit: Yes Status: Acute Subjective Date of service: 12/18/18 Principal diagnosis: ischemic foot Interval history: waiting for transfer Objective - Exam Narrative Exam: Pain - hand and leg General appearance pain Performance status limited self care Eyes - no icterus ENT - no bleeding LNs cervical not palpable Neck - no LN Respiratory Normal Breath sounds - CTA CVS S1 S2 + Extremities cold toes and dark left hand finger General GI Soft Rectal deferred female - deferred Skin warm Musculoskeletal moving extremitites - dark foot and left hand finger Neurologically awake - Constitutional Vitals: Last Vital Signs Temp 98.2 F 12/18/18 16:30 Pulse 97 H 12/18/18 17:12 Resp 24 12/18/18 16:30 BP 115/87 12/18/18 17:12 Pulse Ox 95 12/18/18 16:30 - Labs Lab Results: Laboratory Results - last 24 hr 12/17/18 12/18/18 12/18/18 21:04 01:55 08:34 WBC RBC Hgb Hct MCV MCH MCHC RDW Plt Count Sodium Potassium Chloride Carbon Dioxide Anion Gap BUN Creatinine Estimated GFR BUN/Creatinine Ratio Glucose POC Glucose 209 H 129 H 149 H Calcium 12/18/18 12/18/18 12/18/18 10:06 10:06 11:50 WBC 21.7 H RBC 2.70 L Hgb 8.0 L Hct 23.6 L MCV 88 MCH 30 MCHC 34 RDW 18.0 H Plt Count 456 H Sodium 134 L Potassium 4.3 D Chloride 93.8 L Carbon Dioxide 25 Anion Gap 20 BUN 16 Creatinine 1.2 Estimated GFR > 60 BUN/Creatinine Ratio 13 Glucose 242 H POC Glucose 207 H Calcium 8.7 12/18/18 16:36 WBC RBC Hgb Hct MCV MCH MCHC RDW Plt Count Sodium Potassium Chloride Carbon Dioxide Anion Gap BUN Creatinine Estimated GFR BUN/Creatinine Ratio Glucose POC Glucose 102 Calcium Medications & Allergies - Medications Allergies/Adverse Reactions: Allergies lisinopril Allergy (Severe, Verified 12/18/18 09:20) SORE THROAT;PERSISTENT COUGH Home Medications: Home Medications Medication Instructions Recorded Confirmed Last Taken Type Fluticasone [Flonase] 1 spray NS BID 11/28/18 11/28/18 Unknown History Montelukast [Singulair] 10 mg PO QPM 11/28/18 11/28/18 Unknown History ALPRAZolam [Xanax TAB] 0.25 mg PO Q8H PRN #10 tablet 12/19/18 Unknown Rx Amiodarone [Cordarone 200 MG TAB] 400 mg PO BID #30 tablet 12/19/18 Unknown Rx Amitriptyline [Elavil] 25 mg PO HS #10 tablet 12/19/18 Unknown Rx Apixaban [Eliquis] 2.5 mg PO Q12HR #60 tablet 12/19/18 Unknown Rx Carvedilol [Coreg] 3.125 mg PO BID #60 tablet 12/19/18 Unknown Rx Furosemide [Lasix TAB] 40 mg PO DAILY #30 tablet 12/19/18 Unknown Rx HYDROcodone/APAP 5-325 5 mg PO Q6HR PRN #10 12/19/18 Unknown Rx Insulin NPH/Regular [NovoLIN 70/30] 24 unit SUB-Q BIDDIAB units 12/19/18 Unknown Rx Mycophenolate [Cellcept] 500 mg PO BID #60 tablet 12/19/18 Unknown Rx Pantoprazole [Protonix TAB] 40 mg PO BID #60 tablet 12/19/18 Unknown Rx predniSONE [Deltasone] 60 mg PO QDAY #14 tablet 12/19/18 Unknown Rx Active Medications: Generic Name Dose Route Start Last Admin Trade Name Freq PRN Reason Stop Dose Admin Acetaminophen 650 mg 11/28/18 03:02 12/14/18 22:01 Tylenol PO 650 mg Q4H PRN Administration Pain MILD(1-3)/Fever >100.5/TURPIN Alprazolam 0.25 mg 11/30/18 01:09 12/17/18 18:07 Xanax PO 0.25 mg Q8H PRN Administration Anxiety Amiodarone HCl 400 mg 12/17/18 12:00 12/18/18 10:01 Cordarone PO 400 mg BID VIOLA Administration Amitriptyline HCl 25 mg 11/29/18 22:00 12/17/18 21:46 Elavil PO 25 mg HS VIOLA Administration Apixaban 2.5 mg 12/18/18 22:00 Eliquis PO Q12HR VIOLA Protocol Carvedilol 3.125 mg 12/18/18 10:00 12/18/18 11:19 Coreg PO 3.125 mg BID VIOLA Administration Dextrose 0 ml 11/28/18 02:19 12/16/18 00:17 D50w (25gm) Syringe IV 50 ml PRN PRN Administration Hypoglycemia Digoxin 0.25 mg 12/17/18 17:00 12/18/18 17:12 Lanoxin PO 0.25 mg DAILY@1700 VIOLA Administration Fluticasone Propionate 50 mcg 11/29/18 10:00 12/18/18 10:02 Flonase NS 50 mcg BID VIOLA Administration Hydrophilic Ointment 1 applic 11/30/18 11:55 Vaseline Lip Therapy TP DIRECT PRN DRY LIPS Insulin Human Isoph/Insulin Regular 24 unit 12/10/18 09:00 12/18/18 08:38 Humulin 70/30 SUB-Q 24 unit BIDDIAB VIOLA Administration Insulin Human Lispro 0 unit 11/30/18 09:00 12/18/18 17:13 Humalog SUB-Q Not Given ACHS VIOLA Protocol Montelukast Sodium 10 mg 11/29/18 18:00 12/18/18 17:12 Singulair PO 10 mg QPM VIOLA Administration Morphine Sulfate 2 mg 11/28/18 03:02 12/18/18 02:00 Morphine IV 2 mg Q4H PRN Administration Pain, Moderate (4-6) Mycophenolate Mofetil 500 mg 12/17/18 12:00 12/18/18 10:02 Cellcept PO 500 mg BID VIOLA Administration Ondansetron HCl 4 mg 11/28/18 03:02 Zofran IV Q8H PRN Nausea And Vomiting Pantoprazole Sodium 40 mg 12/15/18 10:00 12/18/18 10:01 Protonix PO 40 mg BID VIOLA Administration Prednisone 60 mg 12/17/18 12:00 12/18/18 10:01 Deltasone PO 60 mg QDAY VIOLA Administration Sodium Chloride 10 ml 11/28/18 10:00 12/18/18 10:03 Sodium Chloride Flush Syringe 10 Ml IV 10 ml BID VIOLA Administration Sodium Chloride 10 ml 11/28/18 03:02 Sodium Chloride Flush Syringe 10 Ml IV PRN PRN LINE FLUSH
[2018-12-18] MEDS: ELIQUIS PO SCH (22:43)
[2018-12-18] MEDS: ELAVIL PO SCH (22:43)
[2018-12-19 06:07] LABS: Hematocrit 24.1 % (30.3-42.9); Hemoglobin 7.7 gm/dl (10.1-14.3)
[2018-12-19 06:56] LABS: BUN/Creatinine Ratio 16; Blood Urea Nitrogen 18 mg/dL (7-17); Calcium 8.8 mg/dL (8.4-10.2); Hemolysis Index 0
[2018-12-19] MEDS: PROTONIX PO SCH (10:30)
[2018-12-19] MEDS: CELLCEPT PO SCH (10:30)
[2018-12-19] MEDS: FLONASE NS SCH (10:30)
[2018-12-19] MEDS: DELTASONE PO SCH (10:30)
[2018-12-19] MEDS: ELIQUIS PO SCH (10:31)
[2018-12-19] MEDS: CORDARONE PO SCH (10:31)
[2018-12-19] MEDS: COREG PO SCH (10:32)
[2018-12-19] MEDS: HumaLOG SUB-Q SCH ×3 (10:33→16:54)
[2018-12-19] MEDS: SODIUM CHLORIDE FLUSH SYRINGE 10 ML IV SCH (10:49)
--- NOTE | 2018-12-19 12:46 | Discharge Summary ---
Providers - Providers Date of Admission: 11/28/18 02:40 Date of discharge: 12/19/18 Attending physician: TYLER SALDAÑA 11/28/18 08:40 Consult to Physician [CONS] Routine Comment: Consulting Provider: CHARLES VIDAL Physician Instructions: Reason For Exam: Possible sepsis 11/28/18 11:48 Consult to Physician [CONS] Routine Comment: notified @ 14:31- [facility] Consulting Provider: IVANNA SALES Physician Instructions: Reason For Exam: multiple PVCs, cardiomyopathy, s/p AICD 11/29/18 09:01 Consult to Physician [CONS] Routine Comment: Consulting Provider: ADINA DOLAN Physician Instructions: Reason For Exam: Dark toes, fore foot, dark left middle finger 11/29/18 09:53 Consult to Dietitian/Nutrition [CONS] Routine Physician Instructions: Reason For Exam: Diabetes diet education Reason for Consult: Diet education 11/29/18 10:15 Consult to Physician [CONS] Routine Comment: Consulting Provider: GAGE BRENNAN Physician Instructions: Reason For Exam: EDGARDO 11/29/18 10:59 Consult to Physician [CONS] Routine Comment: Consulting Provider: RAYMOND GARCIA Physician Instructions: Reason For Exam: Dark toes, forefoot, poss HIT 12/01/18 05:36 PICC Line Placement [Consult to PICC Line RN] [CONS] Stat Reason For Exam: unable to obtain blood Type Line:: PICC 12/01/18 10:18 Physical Therapy Evaluation and Treat [CONS] Routine Comment: Reason For Exam: Debility 12/01/18 10:20 Occupational Therapy Evaluate and Treat [CONS] Routine Comment: Reason For Exam: Debility 12/09/18 14:22 Consult to Physician [CONS] Routine Comment: Consulting Provider: PRINCESS MCKEON Physician Instructions: Reason For Exam: GI bleeding /Ischemic limb on heparin drip 12/13/18 06:58 Consult to Physician [CONS] Routine Comment: Consulting Provider: JACKELIN ORELLANA Physician Instructions: Reason For Exam: icu admission, GI bleed Primary care physician: GEM CUTTER Hospitalization Condition: Critical Hospital course: Discharge diagnosis: /Paroxysmal Afib/flutter - Due to low blood pressure, she cannot tolerate typical AV node blockers. - Per cardiology started on digoxin load and maintenance dose, and s/p iv amiodarone drip - Now on oral amiodarone 400mg bid, coreg 3.125 mg and digoxin 0.25 daily for optimal rate control of atrial flutter. 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 Riggins, plan for amputation when clear line of demarcation achieved - patient can f/u as outpt as it may take few weeks HIT panel -negative, +THERESE /Hyperosmolar hyperglycemic state (HHS) in a newly diagnosed Diabetes-new onset Patient was admitted to the ICU on insulin drip, now off Insulin drip Continue serial BMP level monitoring, Cont. Novolin 70/30 /Diabetes mellitus type 2-new onset, cont SSI /SIRS with leukemoid reaction Present on admission with leukocytosis, tachycardia, tachypnea. Likely from limb ischemia. No acute signs of infection at the present time. Continue off antibiotics. CT abd/pelvis showed generalized bronchiectasis Blood cultures no growth /Vtach s/p shocked 8 tiemes by AICD, as per interrogation, notes in paper chart Cont. Amiodarone, resumed BB cardiology following, /Metabolic encephalopathy, resolved Head CT scan negative We'll monitor clinically /-Acute hypoxic respiratory failure. O2 and BiPAP as clinically indicated. /-CATRACHO Continue CPAP during sleep and when necessary. /-Interstitial lung disease. Continue per pulmonary. nebs as needed /Systemic sclerosis, restart celcept /-Elevated troponin; nonspecific supportive care /-EDGARDO; Probably vasomotor nephropathy due to dehydration Resolved /Abnormal LFT Probably due to acute process -CT abd/pelvis negative for liver pathology -We'll monitor levels /-Hypotension - s/p levophed /Cardiomyopathy with EF of 20-25% -Status post AICD placement -No acute exacerbation /GERD -On famotidine /Severe malnutrition/hypoalbuminemia: Nutrition consult /DVT prophylaxis: off hold heparin now for rectal bleeding Disposition; transfer to [place] when bed available or [facility] Brief History: 38-year-old female patient with history of scleroderma severe cardiomyopathy history of V. fib V. tach runs status post ICD and recently started on CellCept who was brought to the ED via EMS on account of generalized weakness,confusion, multiple episodes of nausea with vomiting generalized weakness and poor oral intake. Also noted some bluish discoloration of her feet which prompted her significant other to call 911. She noted to have BG of 1088, placed on insulin drip, admitted to ICU. Vascular, hematology oncologist evaluated the patient, started on heparin drip for bilateral lower extremity ischemia with the development of cyanotic bilateral feet and cyanotic left upper extremity left middle digit. Had brief episode of GI bleeding, GI evaluated the patient, since patient did not have new episodes of GI bleeding, advised to continue heparin drip and closely monitor H&H. Orthopedic has evaluated the patient and is p marilyn surgery once the demarcation of ischemia is clear. she then had rectal bleeding 12/12 and off heparin drip, transfused one unit of PRBC, vascular/ortho now to plan for amputation as outpt. But then she developed atrial fib/flutter - placed on amioderone drip and digoxin, stopped BB for hypotension. Her h/h remained stable after transfusion, off amioderone drip, resume BB and eliquis low dose BID. Monitor HR and h/h, if stable then plannned to d/c to [facility]. Tried to transfer to [place] but no bed available. Hospitalist Physical exam: GENERAL: lying on bed appeared to be in no discomfort. HEENT: Normocephalic. Atraumatic. No conjunctival congestion or icterus. Patient has moist mucous membranes. NECK: Supple. Trachea midline. CHEST/LUNGS: Clear to auscultated bilaterally, breathing nonlabored. No wheezes crackles or rhonchi. HEART/CARDIOVASCULAR: Regular in rate and rhythm. S1 and S2 positive. ABDOMEN: Abdomen is soft, nontender. Patient has normal bowel sounds. SKIN: bruises over arms. Warm and dry. NEURO: No focal motor deficit. Follows command. MUSCULOSKELETAL: No joint effusion or tenderness. EXTRIMITY: + cyanosis on b/l LE, The bilateral feet are warm, but there is ischemic, partially demarcated tissue at the midfoot near the hindfoot and the forefoot on the right side and left forefoot on the left side. PSYCH: Cooperative. Disposition: [id number] Time spent for discharge: 34 minutes Core Measure Documentation - Palliative Care Palliative Care/ Comfort Measures: Not Applicable - Core Measures Any of the following diagnoses?: heart failure - Heart Failure Discharge Requirements DAISY/ARB for LVSD if EF <40%: No Reason for no DAISY/ARB: Hypotension Beta ernesto at discharge: Yes Exam - Constitutional Vitals: Temp Pulse Resp BP Pulse Ox 98.4 F 93 H 50 H 127/76 100 12/19/18 08:13 12/19/18 10:32 12/19/18 08:13 12/19/18 10:32 12/19/18 08:13 Plan Activity: up only with assistance Weight Bearing Status: Non-Weight Bearing Diet: low fat, diabetic Wound: per wound nurse instructions Durable Medical Equipment Needed Upon Discharge: Oxygen (2L N/c) Additional Instructions: Repeat CBC in 2 days. f/u with garment looper in one week Follow up with: PRIMARY CAREMD [Primary Care Provider] - 3-5 Days PRINCESS RIGGINS MD [Staff Physician] - 7 Days FIGUEROA DAIGLE MD [Staff Physician] - 7 Days Forms: Work/School Release Form(ED) Prescriptions: Mycophenolate [Cellcept] 500 mg PO BID #60 tablet Amiodarone [Cordarone 200 MG TAB] 400 mg PO BID #30 tablet Carvedilol [Coreg] 3.125 mg PO BID #60 tablet predniSONE [Deltasone] 60 mg PO QDAY #14 tablet Amitriptyline [Elavil] 25 mg PO HS #10 tablet Apixaban [Eliquis] 2.5 mg PO Q12HR #60 tablet HYDROcodone/APAP 5-325 5 mg PO Q6HR PRN #10 PRN Reason: Pain, Moderate (4-6) Furosemide [Lasix TAB] 40 mg PO DAILY #30 tablet Pantoprazole [Protonix TAB] 40 mg PO BID #60 tablet ALPRAZolam [Xanax TAB] 0.25 mg PO Q8H PRN #10 tablet PRN Reason: Anxiety
[2018-12-19] MEDS ORDERED: LASIX IV ONE (13:25)
[2018-12-19 13:35] VITALS: BP 107/65
--- NOTE | 2018-12-19 13:58 | Progress Note ---
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 by arterial doppler Acute GI bleed IV heparin discontinued Sleep apnea on CPAP as an outpatient Interstitial Lung disease Hypertension Chronic systolic heart failure, EF of 20-25% Paroxysmal Afib/flutter on IV amiodarone and digoxin Presence of AICD on 11/28/18 patient had multiple shocks from her ICD for runs of VT/VF Elevated troponin Probably secondary to demand ischemia due to acute process Objective Vital Signs Temp Pulse Pulse Resp BP Pulse Ox 12/19/18 13:00 98.6 F 97 H 40 H 107/65 90 12/19/18 10:32 93 H 127/76 12/19/18 10:00 93 H 12/19/18 08:13 98.4 F 93 H 50 H 127/76 100 12/19/18 05:20 94 12/19/18 05:05 97.4 F L 95 H 22 108/71 97 12/19/18 00:12 98.0 F 107 H 22 118/80 94 12/19/18 00:05 92 12/18/18 22:00 104 H 106 H 20 12/18/18 20:15 85 12/18/18 19:25 98.6 F 106 H 20 125/84 85 12/18/18 17:12 97 H 115/87 12/18/18 16:30 98.2 F 97 H 24 115/87 95 12/18/18 14:45 100 H 20 94 - Physical Examination General: No Apparent Distress HEENT: Positive: PERRL Neck: Positive: trachea midline Cardiac: Positive: Reg Rate and Rhythm, S1/S2 Lungs: Positive: clear to auscultation Neuro: Positive: Grossly Intact Abdomen: Positive: Soft Skin: Positive: Clear Extremities: Present: Black. Absent: edema - Labs and Meds CBC 12/19/18 Range/Units 05:30 Hgb 7.7 L (10.1-14.3) gm/dl Hct 24.1 L (30.3-42.9) % Comprehensive Metabolic Panel 12/19/18 Range/Units 05:30 Sodium 136 L (137-145) mmol/L Potassium 4.0 (3.6-5.0) mmol/L Chloride 97.8 L (98-107) mmol/L Carbon Dioxide 26 (22-30) mmol/L BUN 18 H (7-17) mg/dL Creatinine 1.1 (0.7-1.2) mg/dL Glucose 153 H (65-100) mg/dL Calcium 8.8 (8.4-10.2) mg/dL
[2018-12-19] MEDS: SINGULAIR PO SCH (17:01)
[2018-12-19] MEDS: LANOXIN PO SCH (17:02)
[2018-12-20] MEDS ORDERED: LASIX PO SCH (06:00)
== END 2018-12-19 17:15 | DRG 871 ==
LOC: ED 23:23 → CC1 11-28 02:40 → IMCU 12-05 23:13 → 3A 12-09 12:54 → CC1 12-13 02:02 → 4A 12-16 18:55
PROVIDERS: ADMIT Internal Medicine; ATTEND Internal Medicine
PROC: 5A09357 Assistance with Respiratory Ventilation, Less than 24 Consecutive Hours, Continuous Positive Airway Pressure (ICD-10-PCS; 2018-11-28)
PROC: 4B02XTZ Measurement of Cardiac Defibrillator, External Approach (ICD-10-PCS; 2018-11-28)
PROC: 5A09357 Assistance with Respiratory Ventilation, Less than 24 Consecutive Hours, Continuous Positive Airway Pressure (ICD-10-PCS; 2018-11-29)
PROC: 5A09357 Assistance with Respiratory Ventilation, Less than 24 Consecutive Hours, Continuous Positive Airway Pressure (ICD-10-PCS; 2018-11-30)
PROC: 02H633Z Insertion of Infusion Device into Right Atrium, Percutaneous Approach (ICD-10-PCS; principal; 2018-12-01)
PROC: B2141ZZ Fluoroscopy of Right Heart using Low Osmolar Contrast (ICD-10-PCS; 2018-12-01)
PROC: B54MZZA Ultrasonography of Right Upper Extremity Veins, Guidance (ICD-10-PCS; 2018-12-01)
PROC: 5A09357 Assistance with Respiratory Ventilation, Less than 24 Consecutive Hours, Continuous Positive Airway Pressure (ICD-10-PCS; 2018-12-01)
PROC: 4A033R1 Measurement of Arterial Saturation, Peripheral, Percutaneous Approach (ICD-10-PCS; 2018-12-01)
PROC: 5A09357 Assistance with Respiratory Ventilation, Less than 24 Consecutive Hours, Continuous Positive Airway Pressure (ICD-10-PCS; 2018-12-02)
PROC: 5A09357 Assistance with Respiratory Ventilation, Less than 24 Consecutive Hours, Continuous Positive Airway Pressure (ICD-10-PCS; 2018-12-03)
PROC: 5A09357 Assistance with Respiratory Ventilation, Less than 24 Consecutive Hours, Continuous Positive Airway Pressure (ICD-10-PCS; 2018-12-06)
PROC: 5A09357 Assistance with Respiratory Ventilation, Less than 24 Consecutive Hours, Continuous Positive Airway Pressure (ICD-10-PCS; 2018-12-07)
PROC: 5A09357 Assistance with Respiratory Ventilation, Less than 24 Consecutive Hours, Continuous Positive Airway Pressure (ICD-10-PCS; 2018-12-09)
PROC: 30233K1 Transfusion of Nonautologous Frozen Plasma into Peripheral Vein, Percutaneous Approach (ICD-10-PCS; 2018-12-13)
PROC: 30233N1 Transfusion of Nonautologous Red Blood Cells into Peripheral Vein, Percutaneous Approach (ICD-10-PCS; 2018-12-14)
PROC: 5A09357 Assistance with Respiratory Ventilation, Less than 24 Consecutive Hours, Continuous Positive Airway Pressure (ICD-10-PCS; 2018-12-19)
DX: A41.9 Sepsis, unspecified organism (principal); E11.01 Type 2 diabetes mellitus with hyperosmolarity with coma; J96.01 Acute respiratory failure with hypoxia; G93.41 Metabolic encephalopathy; N17.0 Acute kidney failure with tubular necrosis; E43 Unspecified severe protein-calorie malnutrition; E11.52 Type 2 diabetes mellitus with diabetic peripheral angiopathy with gangrene; I50.22 Chronic systolic (congestive) heart failure; I96 Gangrene, not elsewhere classified; I42.8 Other cardiomyopathies; I48.92 Unspecified atrial flutter; K92.2 Gastrointestinal hemorrhage, unspecified; R65.20 Severe sepsis without septic shock; I11.0 Hypertensive heart disease with heart failure; E11.65 Type 2 diabetes mellitus with hyperglycemia; K21.9 Gastro-esophageal reflux disease without esophagitis; M34.9 Systemic sclerosis, unspecified; G47.30 Sleep apnea, unspecified; E66.9 Obesity, unspecified; I49.3 Ventricular premature depolarization; E87.8 Other disorders of electrolyte and fluid balance, not elsewhere classified; M19.90 Unspecified osteoarthritis, unspecified site; E87.5 Hyperkalemia; E83.41 Hypermagnesemia; D72.823 Leukemoid reaction; D64.9 Anemia, unspecified; I48.0 Paroxysmal atrial fibrillation; E86.0 Dehydration; R74.0 Nonspecific elevation of levels of transaminase and lactic acid dehydrogenase [LDH]; I95.9 Hypotension, unspecified; Z79.4 Long term (current) use of insulin; Z68.33 Body mass index [BMI] 33.0-33.9, adult; Z95.810 Presence of automatic (implantable) cardiac defibrillator; Z90.49 Acquired absence of other specified parts of digestive tract; Z79.82 Long term (current) use of aspirin; Z79.899 Other long term (current) drug therapy
CPT/HCPCS: 36415; 36569; 36600; 70450; 71045; 74174; 74176; 77001; 80048; 80053; 80061; 80076; 80307; 80320; 81001; 81025; 82140; 82550; 82570; 82803; 82805; 82947; 82962; 83036; 83615; 83735; 84100; 84156; 84300; 84443; 84484; 84702; 85007; 85014; 85018; 85025; 85027; 85049; 85520; 85610; 85652; 85730; 86021; 86022; 86038; 86140; 86235; 86618; 86850; 86900; 86901; 86920; 87040; 87086; 89050; 93005; 93010; 93306; 93312; 93320; 93325; 93925; 93930; 93979; 94660; 94760; G0378; C1751; C9113; G0480; J0282; J0610; J0696; J0883; J1160; J1644; J1815; J1940; J1956; J2250; J2270; J2370; J2405; J3010; J3475; J7030; J7040; J7050; J7060; J7512; J7517; P9016; P9017; Q9967